=== PATIENT | female | born 1945 | race Caucasian/White ===

== ENCOUNTER 2017-05-09 16:20 | Inpatient (IN) | payer MEDICARE ==
[2017-05-09] MEDS ORDERED: Ondansetron INJ* 2 MG/ML VIAL IV ONE (17:25)
[2017-05-09] MEDS ORDERED: Morphine INJ* 2 MG/ML 1 ML CARPUJECT IV ONE ×2 (17:26→19:43)
--- NOTE | 2017-05-09 17:33 | ED ---
Lower Extremity - HPI Summary HPI Summary: Patient presents to the ED with a CC of left hip pain and deformity after falling backwards and falling onto the left hip. She denies hitting her head or LOC. Denies back pain. Hx of COPD and on 2L O2 at home at baseline. She took the O2 off for 1 hour prior to her fall, but does not think it was related to SOB She denies SOB at this time. Ambulance called and given Fentanyl by EMS. Denies allergy to morphine. Her left leg is slightly inverted and the hip has a large deformity noted on the lateral side of the hip. No bruising or break in the skin is noted. Denies previous fracture of the hip. She notes to 9/10 pain, constant and worse with slight movement. Patient is not able to ambulate. + nausea. Denies vomiting, abdominal pain, BROWN, neck pain, back pain or bladder or bowel dysfunction. Denies blood thinners. Last PO intake 1pm ( drink) - other intake was this AM, she took BOOST supplement. - History of Current Complaint Chief Complaint: EDExtremityLower Stated Complaint: FALL Time Seen by Provider: 05/09/17 17:26 Hx Obtained From: Patient Hx Last Menstrual Period: 07/30/1999 Mechanism Of Injury: Direct Blow Onset of Pain: Immediate Onset/Duration: Minutes Severity Initially: Severe Severity Currently: Severe Pain Intensity: 9 Pain Scale Used: 0-10 Numeric Timing: Constant Location: Is Discrete @ - left lateral hip Character Of Pain: Aching Associated Signs And Symptoms: Positive: Swelling Aggravating Factor(s): Nothing Alleviating Factor(s): Nothing Able to Bear Weight: No - Risk Factors DVT Risk Factors: Negative Septic Arthritis Risk Factor: Extremes of Age - Allergies/Home Medications Allergies/Adverse Reactions: Allergies Allergy/AdvReac Type Severity Reaction Status Date / Time Levofloxacin Allergy Intermediate Swelling Verified 04/25/16 13:03 Ciprofloxacin Allergy Muscle Ache Verified 04/25/16 13:03 Lamotrigine [From Lamictal] Allergy Rash Verified 04/25/16 13:03 Lorazepam [From Ativan] Allergy See Comment Verified 04/25/16 13:03 Nifedipine [From Procardia] Allergy Rash Verified 04/25/16 13:03 Topiramate Allergy See Comment Verified 04/25/16 13:03 Zonisamide Allergy Unknown Verified 04/25/16 13:03 Reaction Details Levetiracetam [From [facility]] AdvReac See Comment Verified 04/25/16 13:03 ANTI=SEIZURE MEDICINE Allergy See Comment Uncoded 04/25/16 13:03 Home Medications: Home Medications ALPRAZolam TAB* [Xanax TAB*] 0.5 mg PO QID PRN 05/09/17 [History Confirmed 05/09] Aspirin EC Low Dose* [Ecotrin EC Low Dose 81 MG*] 81 mg PO DAILY 05/09/17 [ History Confirmed 05/09/17] Levothyroxine TAB* [Synthroid TAB*] 50 mcg PO QAM 05/09/17 [History Confirmed ] Metoprolol Succinate XL TAB* [Toprol XL TAB*] 75 mg PO DAILY 05/09/17 [History Confirmed 05/09/17] Sertraline* [Zoloft*] 50 mg PO DAILY 05/09/17 [History Confirmed 05/09/17] PMH/Surg Hx/FS Hx/Imm Hx Previously Healthy: No - COPD Endocrine/Hematology History: Reports: Hx Thyroid Disease - RADIATION INDUCED HYPERTHYROIDISM Denies: Hx Anticoagulant Therapy, Hx Blood Disorders, Hx Bone Marrow Disease , Hx Diabetes, Hx Systemic Lupus Erythematosus, Hx Sickle Cell Disease, Hx Anemia, Hx Unexplained Bleeding, Other Endocrine/Hematological Disorders Cardiovascular History: Reports: Hx Hypercholesterolemia - previously, Other Cardiovascular Problems/Disorders - Raynauds disease of heart, hands and feet, severe Denies: Hx Aneurysm, Hx Angina, Hx Angioplasty, Hx Auto Implanted Cardiovert Defib, Hx Cardiac Arrest, Hx Cardiomegaly, Hx Congenital Heart Disease, Hx Congestive Heart Failure, Hx Coronary Artery Disease, Hx Deep Vein Thrombosis, Hx Embolism, Hx Hypotension, Hx Pacemaker/ICD, Hx Peripheral Vascular Disease, Hx Rheumatic Fever, Hx Syncope, Hx Valvular Heart Disease Comment Only: Hx Hypertension - pt reports her md has her take BP meds as a precaution Respiratory History: Reports: Hx Chronic Bronchitis, Hx Chronic Obstructive Pulmonary Disease (COPD) Denies: Hx Asthma, Hx Cystic Fibrosis, Hx Lung Cancer, Hx Pleural Effusion, Hx Pulmonary Edema, Hx Pulmonary Embolism, Hx Sleep Apnea Comment Only: Other Respiratory Problems/Disorders - copd GI History: Reports: Hx Obstructive Bowel - "twisted intestine", Other GI Disorders - colitis Denies: Hx Cirrhosis, Hx Crohn's Disease, Hx Diverticulosis, Hx Gall Bladder Disease, Hx Gastroesophageal Reflux Disease, Hx Gastrointestinal Bleed, Hx Hiatal Hernia, Hx Irritable Bowel, Hx Jaundice, Hx Ileostomy, Hx Pyloric Stenosis, Hx Ulcer History: Denies: Hx Acute Renal Failure, Hx Benign Prostatic Hyperplasia, Hx Chronic Renal Failure, Hx Dialysis, Hx Kidney Infection, Hx Kidney Stones, Hx Renal Disease, Other Problems/Disorders Musculoskeletal History: Denies: Hx Arthritis, Hx Rheumatoid Arthritis, Hx Back Problems, Hx Bursitis , Hx Congenital Bone Abnormalities, Hx Fibromyalgia, Hx Gout, Hx Orthopedic Injury, Hx Osteoporosis, Hx Scoliosis, Hx Tendonitis, Other Musculoskeletal History Sensory History: Reports: Hx Cataracts, Hx Contacts or Glasses Denies: Hx Eye Injury, Hx Eye Prosthesis, Hx Legally Blind, Hx Macular Degeneration, Hx Vision Problem, Hx Deafness, Hx Hearing Aid, Hx Hearing Problem , Other Sensory Impairments Opthamlomology History: Reports: Hx Cataracts, Hx Contacts or Glasses Denies: Hx Eye Injury, Hx Eye Prosthesis, Hx Legally Blind, Hx Macular Degeneration, Hx Vision Problem, Other Sensory Impairments Neurological History: Reports: Hx Seizures - 2006 febrile Denies: Hx Dementia, Hx Developmental Delay, Hx Headaches, Hx Migraine, Hx Nerve Disease, Hx Spinal Cord Injury, Hx Transient Ischemic Attacks (TIA), Other Neuro Impairments/Disorders Psychiatric History: Reports: Hx Anxiety - when SOB Denies: Hx Attention Deficit Hyperactivity Disorder, Hx Eating Disorder, Hx Depression, Hx Panic Disorder, Hx Post Traumatic Stress Disorder, Hx Inpatient Treatment, Hx Community Mental Health Tx, Hx Schizophrenia, Hx Bipolar Disorder , Hx Suicide Attempt, Hx of Violent Episodes Against Others, Hx Substance Abuse , Other Psychiatric Issues/Disorders - Cancer History Cancer Type, Location and Year: . neoplasm malignant left mouth/tongue salivary gland 2011 Hx Chemotherapy: No Hx Radiation Therapy: Yes - 2013 Hx Palliative Cancer Treatment: No - Surgical History Surgery Procedure, Year, and Place: 08/27/13 - BIOPSY UNDER TONGUE [id number], salivary gland and lymph node removed from left neck. [facility] [place] Anesthesia Reactions: No - Immunization History Hx Pertussis Vaccination: No Immunizations Up to Date: Unable to Obtain/Confirm Infectious Disease History: No Infectious Disease History: Denies: Hx Hepatitis, Hx Human Immunodeficiency Virus (HIV), Hx Tuberculosis , History Other Infectious Disease, Traveled Outside the [place] in Last 30 Days - Family History Known Family History: Positive: None - Social History Occupation: Retired Lives: With Family Alcohol Use: None Alcohol Amount: 1-2 GLASSES/DAY Hx Substance Use: No Substance Use Type: Reports: None Hx Tobacco Use: Yes Smoking Status (MU): Former Smoker Type: Cigarettes Amount Used/How Often: 45 years Length of Time of Smoking/Using Tobacco: 07/30/2011 Have You Smoked in the Last Year: No Review of Systems Constitutional: Negative Eyes: Negative Cardiovascular: Negative Respiratory: Negative Genitourinary: Negative Positive: no symptoms reported, see HPI Positive: Arthralgia - left hip Neurological: Negative Psychological: Normal All Other Systems Reviewed And Are Negative: Yes Physical Exam Triage Information Reviewed: Yes Vital Signs On Initial Exam: Initial Vitals Temp Pulse Resp BP Pulse Ox 96.3 F 69 20 169/89 100 05/09/17 16:35 05/09/17 16:35 05/09/17 16:35 05/09/17 16:35 05/09/17 16:35 Vital Signs Reviewed: Yes Appearance: Positive: Well-Appearing, Well-Nourished Skin: Positive: Warm, Skin Color Reflects Adequate Perfusion, Other - swelling over the lateral left hip Head/Face: Positive: Normal Head/Face Inspection Eyes: Positive: EOMI, BULMARO, Conjunctiva Clear Neck: Positive: Supple, No Lymphadenopathy Respiratory/Lung Sounds: Positive: Clear to Auscultation, Breath Sounds Present Cardiovascular: Positive: Normal, RRR, Pulses are Symmetrical in both Upper and Lower Extremities Musculoskeletal: Positive: Pain @ - left lateral hip with deformity Neurological: Positive: Sensory/Motor Intact, Alert, Oriented to Person Place, Time Psychiatric: Positive: Normal AVPU Assessment: Alert - Carolyn Coma Scale Best Eye Response: 4 - Spontaneous Best Motor Response: 6 - Obeys Commands Best Verbal Response: 5 - Oriented Diagnostics - Vital Signs Vital Signs Temp Pulse Resp BP Pulse Ox 05/09/17 16:35 96.3 F 69 20 169/89 100 - Laboratory Result Diagrams: 05/09/17 20:10 Lab Statement: Any lab studies that have been ordered have been reviewed, and results considered in the medical decision making process. Lower Extremity Course/Dx - Course Course Of Treatment: Patient sent to imaging. Given 4mg zofran and 4mg morphine upon arrival to the ED. Deformity to the left hip. Pulses intact +2 femorally and PT and pedal. No ecchymosis noted. No lesions or breaks in the skin. Foot is turned outward and externally rotated on arrival. She endorses more pain 1 hour after morphine given. She is currently at 4L O2 after 4mg morphine given. She is currently at 100%. She is given morphine 2mg. Spoke with Dr. Harris who agrees to admit. Dr. Castillo called and will see patient first thing in the morning. patient and made aware. She is able to eat but states she is not hungry. - Diagnoses Provider Diagnoses: Closed comminuted intertrochanteric fracture of femur Discharge - Discharge Plan Condition: Stable Disposition: ADMITTED TO [facility]
--- NOTE | 2017-05-09 18:30 | RAD ---
Indication: Pain post fall. Assess for LEFT hip fracture. Comparison: January 28, 2013 CT. Technique: AP pelvis and AP and crosstable lateral views LEFT hip. Report: Comminuted intratrochanteric LEFT hip fracture with approximate 90 degrees varus angulation. The femoral head remains located in the acetabular fossa. No pelvic fracture or joint diastases evident. Soft tissue swelling about the LEFT hip. No significant arthropathic change at the LEFT hip evident. IMPRESSION: Comminuted intratrochanteric fracture of the LEFT hip with varus angulation.
--- NOTE | 2017-05-09 18:32 | RAD ---
Indication: Fall with LEFT hip fracture. Comparison: January 28, 2016 CT. Technique: Sitting AP chest 1818 hours Report: Elevated lung volumes and both diffuse mild prominence of the interstitial markings and patchy rarefaction of the mid to upper lung zone interstitial markings. No focal pulmonary lesion, compelling alveolar consolidation, pleural effusion, pneumothorax. The heart, pulmonary vasculature, and mediastinal contours are unremarkable. IMPRESSION: Stigmata of obstructive lung disease. No acute pulmonary or cardiac process evident.
[2017-05-09] MEDS ORDERED: Albuterol/Ipratropium RESP(NF) MDI (Combivent Respimat) INH PRN (19:28)
[2017-05-09] MEDS ORDERED: Ondansetron INJ* 2 MG/ML VIAL IV PRN (19:35)
[2017-05-09] MEDS ORDERED: PROCHLORPERAZINE INJ 5 MG/ML 2 ML VIAL IV PRN (19:35)
[2017-05-09 20:19] LABS: Hematocrit 31 % (35-47); Hemoglobin 10.4 g/dl (12.0-16.0); Mean Corpuscular HGB Conc 33 g/dl (31-36); Mean Corpuscular Hemoglobin 33 pg (27-31); Mean Corpuscular Volume 100 fL (80-97); Mean Platelet Volume 7 um3 (7.4-10.4); Red Blood Count 3.12 10^6/ul (4.0-5.4); Red Cell Distribution Width 12 % (10.5-15); White Blood Count 15.3 10^3/ul (3.5-10.8)
[2017-05-09 20:33] LABS: Albumin 3.6 g/dL (3.2-5.2); BUN/Creatinine Ratio 18.4 (8-20); C Reactive Protein 2.48 mg/L (< 5.00); Calcium 8.6 mg/dL (8.6-10.3); EGFR African American 215.3 (>60); EGFR Non-African American 167.4 (>60); Globulin 2.7 g/dL (2-4); Potassium 3.8 mmol/L (3.5-5.0); Total Bilirubin 0.5 mg/dL (0.2-1.0); Total Protein 6.3 g/dL (6.4-8.9)
[2017-05-09] MEDS ORDERED: Budesonide/Formote 160/4.5(NF) MDI INH SCH (21:00)
[2017-05-09] MEDS ORDERED: Heparin VIAL(*) 5000 UNITS/ML VIAL (FIVE THOUSAND) SUBCUT SCH (21:00)
--- NOTE | 2017-05-09 21:41 | HP ---
CC: Dr. James; Dr. Castaneda * HISTORY AND PHYSICAL: DATE OF ADMISSION: 05/09/17 PRIMARY CARE PROVIDER: Dr. James. INTERNATIONAL COORDINATOR: Dr. Castaneda. CHIEF COMPLAINT: Fall with left hip pain. HISTORY OF PRESENT ILLNESS: Ms. Cabello is a 72-year-old female with O2 dependent COPD, who had been in her usual state of health today, though trialing herself off the oxygen. When she stood up in the kitchen, she believes she slipped on the floor and fell. The patient landed on the left hip and had instant pain. The patient did not hit her head and she had no loss of consciousness. The patient has been over the last few days been trialing herself off her oxygen. She states her O2 saturation have been in the high 80s to low 90s, off her O2. She had no lightheadedness or dizziness prior to the fall. At this point, the patient is complaining of significant pain in her left hip as well as nausea. The patient denies any chest pain now or at the time of her fall. She denies any shortness of breath currently. She does get short of breath with exertion such as climbing stairs. The patient does not have to stop climbing stairs due to chest pain; however, she does state that she will have to stop climbing the stairs due to shortness of breath. PAST MEDICAL HISTORY: 1. COPD with chronic hypoxic respiratory failure, requiring 2 L of oxygen continuously. 2. CAD with FL in 1995. 3. Hypertension. 4. Raynaud's. 5. Hyperlipidemia. 6. History of mouth cancer. 7. Hypothyroidism. PAST SURGICAL HISTORY: Left neck lymph node removal and salivary gland extraction related to her mouth cancer. MEDICATIONS: 1. Sertraline 50 mg p.o. daily. 2. Metoprolol XL 75 mg p.o. daily. 3. Aspirin 81 mg p.o. daily. 4. Xanax 0.5 mg p.o. q.i.d. p.r.n. anxiety. 5. Combivent 2 puffs inhaled q.4 hours p.r.n. shortness of breath. 6. Symbicort 160/4.5 two puffs inhaled b.i.d. 7. Lipitor 10 mg p.o. daily. 8. Synthroid 50 mcg p.o. daily. 9. Valsartan 80 mg p.o. daily. ALLERGIES: LEVAQUIN, CIPRO, LAMICTAL, LORAZEPAM, NIFEDIPINE, TOPAMAX, ZONISAMIDE, KEPPRA. FAMILY HISTORY: Mom of pneumonia. Dad of an FL, but also had emphysema. SOCIAL HISTORY: The patient is a former smoker, quitting in 2011. She has a 45 - pack year history of smoking. She does drink 3 to 4 alcoholic beverages per day. She does state that she is able to intermittently takes days where she does not drink and she denies any withdrawal symptoms on those days. 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 She is . Her , Eloy is her healthcare proxy. REVIEW OF SYSTEMS: The patient denies any fevers or chills. She does state that her appetite is poor; however, this has been a chronic problem. She denies any chest pain. She does admit to chronic edema of her feet. She admits to chronic cough and sputum production that is unchanged currently. No shortness of breath at this point; however, she does get short of breath with exertion. She currently is feeling nauseous; however, prior to being in the ER , she did not. No abdominal pain. No diarrhea, constipation, or hematochezia. No hematuria. No dysuria. No focal weakness or sensory loss. No sudden changes in vision. No dysphagia. Her only source of pain at this point is her left hip. No rashes. She does admit to anxiety. PHYSICAL EXAMINATION GENERAL: The patient is a well-developed, thin, elderly female, sitting up in the stretcher, in no acute distress. VITAL SIGNS: Blood pressure 169/89, pulse 69, respirations 20, temp 96.3, and O2 sat 100% on 2 L. HEENT: Pupils are equal, they are round. Extraocular muscles are intact. Oropharynx is clear. Oral mucosa is moist. I do not appreciate any submandibular, cervical, or supraclavicular adenopathy. Thyroid is not enlarged. No thyroid nodules noted. PULMONARY: Lungs are clear to auscultation bilaterally, though breath sounds are diminished in all lung kelly. CARDIAC: Normal S1, S2. Heart sounds are distant, but found to be regular. There is trace lower extremity edema. ABDOMEN: Bowel sounds are present. Abdomen is soft, nontender, nondistended. MUSCULOSKELETAL: There is no cyanosis or clubbing of the digits. There is full active range of motion of the upper extremities. The left lower extremity is shortened and externally rotated. Her jeans have been cut revealing swelling about the upper thigh. SKIN: Warm and dry. I do not appreciate any rashes. NEURO: Cranial nerves II through XII are grossly intact. Sensation is intact to light touch throughout. Strength is 5/5 and symmetric in the upper extremities. Lower extremity is not tested at this time. PSYCH: The patient is alert. She is oriented x3. Affect appears appropriate. DIAGNOSTIC STUDIES/LAB DATA: Labs are pending. Chest x-ray reveals stigmata of obstructive lung disease without any acute pulmonary or cardiac process. Left hip x-ray, comminuted intertrochanteric fracture of the left hip with varus angulation. ASSESSMENT AND PLAN: Ms. Cabello is a 72-year-old female with a history of chronic hypoxic respiratory failure secondary to chronic obstructive pulmonary disease on 2 L oxygen continuously, coronary artery disease, hypertension, hyperlipidemia and history of mouth cancer, who presents to the emergency room after a mechanical fall at home, where she sustained a left comminuted intertrochanteric hip fracture. 1. Left comminuted intertrochanteric hip fracture. Management of this will be per Orthopedics. Dr. Castillo was called by the emergency room physician and reportedly will be seeing the patient tomorrow morning. For now, the patient will receive a dose of subcu heparin tonight for DVT prophylaxis, though I will hold it any further in case she is able to go to the operating room tomorrow. She will have pain control with morphine and Tylenol. At this point, the patient is feeling slightly nauseous which I suspect is related to the morphine and therefore, I have also ordered Zofran and Compazine. In terms of the patient's cardiac risk for surgery, her revived cardiac risk index for preoperative risk reveals a 0.9% risk of major cardiac events. I suspect the patient is more likely to suffer from pulmonary complications. At this time, however, her pulmonary status does appear to be optimized. 2. Chronic obstructive pulmonary disease on 2 L O2 continuously. At this point , the patient has no signs of exacerbation. She will be maintained on her usual inhaler regimen. 3. Coronary artery disease. The patient has no complaints of chest pain whatsoever and has had no chest pain in the recent past. I have held her baby aspirin which she did take this morning. This will need to be restarted postoperatively when okayed by Orthopedics. 4. Hypertension. At this point, the patient's blood pressure is moderately elevated in the ER; however, I suspect this is related to pain. We will monitor the patient's blood pressure on her usual home antihypertensive regimen. 5. Hyperlipidemia. The patient will be maintained on her usual dose of Lipitor. 6. Hypothyroidism. The patient will continue on her usual dose of Synthroid. 7. DVT prophylaxis. According to the Adult Thrombosis Prophylaxis Risk Factor Assessment Guide, the patient has a total risk factor score of 10, making her high risk. Again, she will receive a dose of subcu heparin tonight as well as an SCD to the right leg while awaiting surgery. 8. Code status is full and again the patient indicates that her , Eloy is her healthcare proxy. TIME SPENT: Sixty-five minutes were spent admitting this patient. ADDENDUM: Labs have returned on the patient and reveal an elevated WBC count, anemia and significant hyponatremia. I suspect the leukocytosis and anemia are related to her fracture (elevated WBC count secondary to stress reaction) and possibly a hematoma from the fracture. Will get follow up labs tomorrow AM. In terms of the hyponatremia, I question if this may be secondary to poor oral intake today. Will start IVF now as opposed to at NH as initially ordered and follow up the labs in the AM. If her hyponatremia is improved or stable she can likely go to the OR tomorrow if recommended by orthopedics. [id number]/[facility] #: [id number] MTDD
[2017-05-09] MEDS: NS 0.9% 1000 ML* 1,000 ML IV SCH (22:00)
[2017-05-09] MEDS: Morphine INJ* 4 MG/ML 1 ML CARPUJECT IV PRN (22:14)
[2017-05-09] MEDS ORDERED: NS 0.9% 1000 ML* 1,000 ML IV SCH (23:59)
[2017-05-10] MEDS: Morphine INJ* 4 MG/ML 1 ML CARPUJECT IV PRN ×2 (02:23→07:14)
[2017-05-10 05:58] LABS: Hematocrit 29 % (35-47); Hemoglobin 9.7 g/dl (12.0-16.0); Mean Corpuscular HGB Conc 34 g/dl (31-36); Mean Corpuscular Hemoglobin 34 pg (27-31); Mean Corpuscular Volume 100 fL (80-97); Mean Platelet Volume 7 um3 (7.4-10.4); Red Blood Count 2.87 10^6/ul (4.0-5.4); Red Cell Distribution Width 12 % (10.5-15); White Blood Count 10.2 10^3/ul (3.5-10.8)
[2017-05-10 06:13] LABS: BUN/Creatinine Ratio 18.8 (8-20); Calcium 8.4 mg/dL (8.6-10.3); EGFR African American 108.2 (>60); EGFR Non-African American 84.1 (>60)
[2017-05-10 06:22] LABS: Potassium 5.1 mmol/L (3.5-5.0)
[2017-05-10] MEDS: Levothyroxine TAB* 50 MCG TAB PO SCH (06:29)
[2017-05-10] MEDS: Atorvastatin* 10 MG TAB PO SCH (08:25)
[2017-05-10] MEDS: Valsartan TAB* 40 MG PO SCH (08:25)
[2017-05-10] MEDS: Metoprolol Succinate XL TAB* 25 MG PO SCH (08:45)
[2017-05-10] MEDS ORDERED: Influenza VAC *QUAD* 2017-18* 0.5 ML SYRINGE IM ONE (09:00)
[2017-05-10] MEDS ORDERED: Sertraline* 50 MG TAB PO SCH ×2 (09:00→15:32)
[2017-05-10] MEDS ORDERED: Metoprolol Succinate XL TAB* 50 MG PO SCH (09:00)
[2017-05-10] MEDS ORDERED: Sertraline* 25 MG TAB PO SCH ×2 (09:00)
[2017-05-10] MEDS ORDERED: Metoprolol Tartrate TAB* 50 mg PO SCH (09:00)
[2017-05-10] MEDS ORDERED: Morphine INJ* 10 MG/ML 1 ML CARPUJECT IV PRN (09:05)
--- NOTE | 2017-05-10 09:14 | PN ---
Subjective Date of Service: 05/10/17 Interval History: Pain not relieved by morphine 4 mg IV, was only sl sedated briefly from this. No change in her chronic SOB, not a problem now. Objective Active Medications: Acetaminophen (Tylenol Tab*) 650 mg PO Q4H PRN PRN Reason: PAIN Albuterol/Ipratropium (Combivent Respimat(Nf)) 2 puff INH Q4H PRN PRN Reason: DYSPNEA Alprazolam (Xanax Tab*) 0.5 mg PO QID PRN PRN Reason: ANXIETY Atorvastatin Calcium (Lipitor*) 10 mg PO QAM [facility] Last Admin: 05/10/17 08:25 Dose: Not Given Sodium Chloride (Ns 0.9% 1000 Ml*) 1,000 mls @ 75 mls/hr IV PER RATE [facility] Last Admin: 05/09/17 22:00 Dose: 75 mls/hr Levothyroxine Sodium (Synthroid Tab*) 50 mcg PO DAILY@0600 [facility] Last Admin: 05/10/17 06:29 Dose: 50 mcg Metoprolol Succinate (Toprol Xl Tab*) 75 mg PO DAILY [facility] Last Admin: 05/10/17 08:45 Dose: 75 mg Mometasone Furoate/Formoterol Fumar (Dulera 200/5 Mdi*) 2 puff INH BID [facility] PRN Reason: Protocol Morphine Sulfate (Morphine Inj (Syringe)*) 4 mg IV Q4H PRN PRN Reason: PAIN Last Admin: 05/10/17 07:14 Dose: 4 mg Morphine Sulfate (Morphine Inj (Syringe)*) 6 mg IV Q3H PRN PRN Reason: PAIN - SEVERE Ondansetron HCl (Zofran Inj*) 4 mg IV Q6H PRN PRN Reason: NAUSEA Last Admin: 05/09/17 19:48 Dose: 4 mg Prochlorperazine Edisylate (Compazine Inj*) 5 mg IV Q6H PRN PRN Reason: NAUSEA/VOMITING Last Admin: 05/09/17 21:02 Dose: 5 mg Sertraline HCl (Zoloft*) 50 mg PO DAILY [facility] Last Admin: 05/10/17 08:25 Dose: Not Given Valsartan (Diovan Tab*) 80 mg PO QAM [facility] Last Admin: 05/10/17 08:25 Dose: Not Given Vital Signs 05/09/17 05/09/17 05/09/17 19:51 20:25 21:26 Temperature 97.3 F 97.9 F Pulse Rate 71 68 Respiratory 18 18 16 Rate Blood Pressure 123/54 111/69 (mmHg) O2 Sat by Pulse 100 100 Oximetry 05/09/17 05/09/17 05/09/17 21:58 22:14 23:14 Temperature 97.3 F Pulse Rate 71 Respiratory 18 18 16 Rate Blood Pressure 123/54 (mmHg) O2 Sat by Pulse 100 Oximetry 05/10/17 05/10/17 05/10/17 02:23 03:29 07:14 Temperature 97.7 F Pulse Rate 88 Respiratory 16 13 18 Rate Blood Pressure 132/55 (mmHg) O2 Sat by Pulse 100 Oximetry 05/10/17 05/10/17 08:14 08:26 Temperature 97.7 F Pulse Rate 89 Respiratory 14 17 Rate Blood Pressure 114/58 (mmHg) O2 Sat by Pulse 100 Oximetry Oxygen Devices in Use Now: Nasal Cannula Appearance: Alert, supine in bed. In fair spirits. Looks somewhat uncomfortable. Ears/Nose/Mouth/Throat: Mucous Membranes Moist Neck: NL Appearance and Movements; NL JVP, No Thyroid Enlargement, Masses Respiratory: Symmetrical Chest Expansion and Respiratory Effort, Clear to Auscultation, Clear to Percussion Cardiovascular: NL Sounds; No Murmurs; No JVD, RRR, No Edema, - Extremities: No Edema, No Clubbing, Cyanosis, - - L leg shortened and everted. Skin: No Rash or Ulcers, No Nodules or Sclerosis, - Neurological: Alert and Oriented x 3, NL Sensation Result Diagrams: 05/10/17 05:31 05/10/17 05:31 Assess/Plan/Problems-Billing Assessment: - Patient Problems (1) Closed left hip fracture Current Visit: Yes Status: Acute Code(s): S72.002A - FRACTURE OF UNSP PART OF NECK OF LEFT FEMUR, INIT SNOMED Code(s): 572712979 Comment: Scheduled for ORIF 10/12 AM. Morphine dose increased to 6 mg IV q 3 hr PRN severe pain. (2) COPD (chronic obstructive pulmonary disease) Current Visit: No Status: Acute Code(s): J44.9 - CHRONIC OBSTRUCTIVE PULMONARY DISEASE, UNSPECIFIED SNOMED Code(s): 13121716 Comment: Continue bronchodilators. She will take her own Combivent Respimat and Symbicort inhalers 05/10 0900. (3) Hypothyroidism Current Visit: No Status: Acute Code(s): E03.9 - HYPOTHYROIDISM, UNSPECIFIED SNOMED Code(s): 93146772 Comment: - TSH wnl 02/20/17, continue Levothyroxine. (4) CAD (coronary artery disease) Current Visit: No Status: Acute Code(s): I25.10 - ATHSCL HEART DISEASE OF [place] CORONARY ARTERY W/O ANG PCTRS SNOMED Code(s): 41054054 Comment: - Stable. - Continue Atorvastatin, re-start ASA 05/11. (5) HTN (hypertension) Current Visit: Yes Status: Acute Code(s): I10 - ESSENTIAL (PRIMARY) HYPERTENSION SNOMED Code(s): 58510536 Comment: Continue valsartan.
[2017-05-10] MEDS: Mometasone/Formoter 200/5 MDI INH SCH ×2 (09:51→20:55)
[2017-05-10] MEDS ORDERED: Bupivacaine 0.5% SDV PF* 30 ML VIAL ONE (10:02)
--- NOTE | 2017-05-10 10:10 | CONSULT ---
Consult Consult: Orthopedics H&P Chief Complaint: Left hip pain. History: 72F with COPD on home oxygen who fell while getting up from a table last night, likely due to not using her oxygen at the time. Reports only left hip pain and denies HS, LOC or pain anywhere else. No prior hip pain. Lives at home with in [place]. The pain is located at left hip and is daily, marked, sharp. Pain worse with attempted motion and lessened when at rest. There is associated swelling and ecchymosis. Review of Systems: Negative for fever, recent visual changes, difficulty swallowing, chest pain, shortness of breath, abdominal pain, hematuria, diffuse weakness or lack of coordination, and diffuse rash. PMH: COPD, CAD, HTN, raynauds, HL, hypothyroid, h/o mouth cancer All: levaquin, cipro, lamictal, lorazepam, nifedipine, topamax, zonesamide, keppra Physical Examination: Constitutional: General appearance is healthy and non-septic in no acute distress. Cardiovascular: Pulse examination demonstrates positive pedal pulses with brisk capillary refill. There are no varicosities. Lymphatic: No lymphadenopathy appreciated. Skin: Bilateral upper and lower extremity examination demonstrates no ulcerative lesions. Psychiatric / Neurological: Appropriate affect. Alert and oriented to person, place and time. There is no significant abnormality in coordination appreciated. Musculoskeletal: Bilateral upper extremities and contralateral lower extremity show full range of motion with no evidence of instability and no tenderness with palpation and 5 /5 strength. There is no gross deformity. LLE shortened and externally rotated Pain with logroll and heel strike 5/5 ankle and toes dorsiflexion and plantarflexion Intact light touch sensation. There is no global swelling, edema, or varicosities. No TTP distal femur, knee, leg ankle or foot No pain with knee or ankle ROM Studies: X-rays were ordered, obtained, and independently interpreted and demonstrate a displaced left hip IT fx. HCT 29 Impression and Plan: Left hip IT fx. Surgical and non-surgical treatment options were discussed at length. I recommended surgical intervention given the morbidity of non-op displaced hip fx's. After reviewing all of these factors, we discussed at length the pros/cons and potential risks and benefits of surgery with both her and her son. Surgical risks reviewed included but were not limited to infection, failure of healing, nerve injury, recurrent problems, neuroma, deep venous thrombosis or pulmonary embolism, chronic regional pain syndrome (reflex sympathetic dystrophy), failure to return to previous functional level, weakness, limp, hardware failure, malunion, nonunion, failure of the surgery and also the remote risk of catastrophic complications including loss of limb or . After this extensive discussion the patient and her son expressed their desire to move forward with surgery. All questions were answered. Specifically, the surgical plan will be for left hip fracture surgical fixation. Andrae Campos MD
[2017-05-10] MEDS ORDERED: ceFAZolin 2 GM PREMIX (*) 50 ML IVPB ONE (10:34)
[2017-05-10] MEDS ORDERED: Propofol* 10 MG/ML 20 ML BTL IV PUSH ONE (11:02)
[2017-05-10] MEDS ORDERED: fentaNYL* 50 MCG/ML 2 ML VIAL (100 MCG VIAL) ONE ×2 (11:02→13:16)
[2017-05-10] MEDS ORDERED: Midazolam* 1 MG/ML 2 ML VIAL (2 MG) ONE (11:08)
[2017-05-10] MEDS ORDERED: Atracurium* 10 MG/ML 10 ML VIAL ONE (11:30)
[2017-05-10] MEDS ORDERED: Succinylcholine* 20 MG/ML 10 ML VIAL ONE (12:17)
[2017-05-10] MEDS ORDERED: Glycopyrrolate IV* 0.2 MG/ML 1 ML VIAL ONE (12:28)
[2017-05-10] MEDS ORDERED: Neostigmine Methylsulfate* 2 MG/2 ML SYRINGE ONE (12:28)
--- NOTE | 2017-05-10 12:47 | RAD ---
INDICATION: Traumatic left hip fracture, operative reduction and internal fixation. COMPARISON: Comparison is made with a prior x-ray study of the left hip from May 09, 2017. TECHNIQUE: 52.7 seconds of intermitted fluoroscopic were provided and an AP view of the pelvis and 16 views of the left hip were obtained. FINDINGS: The films demonstrate operative reduction and internal fixation of a comminuted intertrochanteric fracture of the proximal left femur. There is placement of a gamma nail and intramedullary kay transfixed distally with a single surgical screw. IMPRESSION: INTRAOPERATIVE CONTROL FILMS. CPT II Codes: 6045F
[2017-05-10] MEDS ORDERED: Naloxone* 0.4 MG/ML 10 ML VIAL ONE (12:48)
[2017-05-10] MEDS ORDERED: HYDROmorphone INJ* 1 MG/ML CARPUJECT SYRINGE IV PRN (12:58)
[2017-05-10] MEDS ORDERED: Levalbuterol 0.63MG/3ML NEB* UNIT OF USE INH PRN (12:58)
[2017-05-10] MEDS ORDERED: Ondansetron INJ* 2 MG/ML VIAL IV PRN (12:58)
[2017-05-10] MEDS ORDERED: oxyCODONE TAB* 5 MG TAB PO PRN (13:05)
[2017-05-10] MEDS: fentaNYL* 50 MCG/ML 2 ML VIAL (100 MCG VIAL) IV PRN ×4 (13:18→13:32)
[2017-05-10] MEDS ORDERED: Enoxaparin(*) 40 MG/0.4 ML SYR SUBCUT SCH (14:00)
[2017-05-10] MEDS ORDERED: oxyCODONE/Acetamin 5/325 MG* TAB ONE (14:13)
[2017-05-10] MEDS ORDERED: Acetaminophen TAB* 325 MG ONE (14:22)
[2017-05-10] MEDS: Acetaminophen TAB* 325 MG PO PRN (14:25)
[2017-05-10] MEDS: NS 0.9% 1000 ML* 1,000 ML IV SCH (15:27)
[2017-05-10] MEDS ORDERED: Spiriva Inhaler DEVICE* 1 EACH DEVICE INH ONE (18:00)
[2017-05-10] MEDS: Tiotropium CAP.INH* CAP.INH/18 MCG (USE ORDER SET !) INH SCH (18:17)
[2017-05-10] MEDS ORDERED: Lactated Ringers 500 ml BAG* 500 ML IV ONE (19:00)
[2017-05-10] MEDS: ceFAZolin 1 GM* X 3 DOSES POST-OP Q8H IVPB SCH ×2 (19:39)
[2017-05-10] MEDS: oxyCODONE TAB* 5 MG TAB PO PRN (20:06)
--- NOTE | 2017-05-11 02:25 | OP ---
DATE OF OPERATION: 05/10/17 - ROOM #339 DATE OF : 49 SURGEON: Andrae Campos MD. TRAINS DISPATCHER SUPERVISOR: VICKEY Rodriguez. ANESTHESIOLOGIST: Cooper Hoyt MD ANESTHESIA: General endotracheal anesthesia. PRE-OP DIAGNOSIS: Left intertrochanteric hip fracture. POST-OP DIAGNOSIS: Left intertrochanteric hip fracture. OPERATIVE PROCEDURE: Open reduction and internal fixation of the left hip fracture utilizing an intramedullary nail. IMPLANTS: Timur gamma nail measuring 11 x 180 mm with 125-degree neck shaft angle, 90 mm lag screw, and 35 mm distal interlocking screw. ESTIMATED BLOOD LOSS: 100 cc. SPECIMENS: None. COMPLICATIONS: None. STATUS: Stable from the operating room to the recovery room and then readmitted back to the floor. INDICATIONS FOR PROCEDURE: Trina is a 72-year-old woman with COPD, who sustained a fall on the night prior to surgery. She sustained a left hip fracture, but no other injury. Both operative and nonoperative treatment alternatives were reviewed with her and her family. Further, the nature and risks of the surgery were reviewed in careful detail both on the hospital floor as well as in the preoperative holding area. Our discussions regarding the risks of the surgery included, but were not limited to infection, wound problems , malunion, nonunion, nerve injury, neuroma, RSD, persistent symptoms, hardware failure and even the remote chance of a catastrophic complications such as . DESCRIPTION OF PROCEDURE: The patient was seen in the preoperative holding unit and informed consent was obtained. The appropriate extremity was marked. The patient was then brought into the operating room and anesthesia was induced. The patient was then carefully positioned on the fracture table and all bony prominences were padded with great care. We fluoroscopically assessed the fracture and pulled traction and gained reduction. The chlorhexidine based pre-scrub was performed followed by a ChloraPrep, prepped and draped in the standard sterile fashion. A surgical safety pause was then conducted in which we confirmed the appropriate patient, extremity, planned procedure, availability of equipment, indication and administration of prophylactic antibiotics and a DVT prophylaxis in the form of compression boot on the nonsurgical extremity. I made an approximately 3 cm incision in-line with the femur. The dissection was carried down through the soft tissue and a starting point was found utilizing a guidewire on the greater trochanter. Fluoroscopy was utilized to confirm the starting point. I then tapped the guidewire into proper position and confirmed this again fluoroscopically. At this point, I overdrilled utilizing the starting reamer. This was done with fluoroscopic guidance as well. I then passed the short nail into appropriate position and gently tapped this down. The reduction was maintained during this portion of the procedure. I then placed a guidewire up into the femoral neck and confirmed that this was center-center within the femoral head. We then measured the length of the guidewire and overdrilled this. I then placed a screw up into the femoral head. I confirmed that this was in the appropriate position utilizing multiple views fluoro-scopically. I then locked this lag screw into place with the set screw. At this point, I placed a single static interlocking screw distally into the nail utilizing the guide. At this point, I removed the guide arm and obtained final fluoroscopic images. We were pleased with the reduction and the position of the hardware. The wounds were copiously irrigated and closed in layers utilizing 2-0 Vicryl for the deep layer, 3-0 Monocryl for the subdermal layer and nancy on the skin. The sterile dressing was then applied. At this point, the patient was carefully transitioned off the fracture table and awaken from the anesthesia. There were no complications. All needle and sponge counts were correct at the end of the case. ATTESTATION: I attest that I was present and scrubbed and performed the entire procedure myself. I also attest that Martha Steel's assistance was necessary. POSTOPERATIVE PLAN: The patient will be readmitted back to the medical floor on the hospitalist service. She may be weightbearing as tolerated and will work with physical therapy. DVT prophylaxis is requested for 1-month and will likely be Lovenox 40 mg sc daily. [id number]/[facility] #: [id number] [facility]
[2017-05-11] MEDS: ceFAZolin 1 GM* X 3 DOSES POST-OP Q8H IVPB SCH ×4 (03:37→12:11)
[2017-05-11] MEDS: oxyCODONE TAB* 5 MG TAB PO PRN ×3 (03:50→19:44)
[2017-05-11] MEDS: Levothyroxine TAB* 50 MCG TAB PO SCH (05:46)
[2017-05-11] MEDS: NS 0.9% 1000 ML* 1,000 ML IV SCH ×2 (06:23→19:49)
--- NOTE | 2017-05-11 08:09 | PN ---
Progress Note - Progress Note Date of Service: 05/11/17 SOAP: Subjective: pain controlled. No complaints Objective: Temp Pulse Resp BP Pulse Ox 98.8 F 94 14 90/50 100 05/11/17 07:34 05/11/17 07:34 05/11/17 07:34 05/11/17 03:17 05/11/17 07:34 Dressing c/d/i +TA EHL FHL G/S +DP SILT foot Assessment: Doing well POD1 left hip ORIF Plan: WBAT, PT consult DVT prophylaxis x1 month with lovenox 40mg sc daily yumiko's and pneumoboots periop abx
[2017-05-11] MEDS: Sertraline* 50 MG TAB PO SCH (08:38)
[2017-05-11] MEDS ORDERED: Enoxaparin(*) 40 MG/0.4 ML SYR SUBCUT SCH (09:00)
[2017-05-11] MEDS ORDERED: Influenza VAC *QUAD* 2017-18* 0.5 ML SYRINGE IM ONE (09:00)
[2017-05-11] MEDS: Metoprolol Succinate XL TAB* 25 MG PO SCH (09:22)
[2017-05-11] MEDS: Atorvastatin* 10 MG TAB PO SCH (09:22)
[2017-05-11] MEDS: Enoxaparin(*) 30 MG/0.3 ML SYR SUBCUT SCH (09:29)
[2017-05-11] MEDS: Mometasone/Formoter 200/5 MDI INH SCH (09:37)
[2017-05-11] MEDS ORDERED: PTO:Budesonide/Formote 160/4.5(NF) MDI INH SCH (09:46)
[2017-05-11] MEDS: Valsartan TAB* 40 MG PO SCH (09:46)
[2017-05-11] MEDS: Tiotropium CAP.INH* CAP.INH/18 MCG (USE ORDER SET !) INH SCH (11:01)
[2017-05-11] MEDS: PTO:Albuterol/Ipratropium RESP(NF) MDI (Combivent Respimat) INH SCH ×4 (12:11→19:35)
[2017-05-11] MEDS ORDERED: Budesonide/Formote 160/4.5(NF) MDI INH SCH (13:00)
[2017-05-11] MEDS: Acetaminophen TAB* 325 MG PO PRN (13:55)
[2017-05-11] MEDS ORDERED: Artificial Tears* 15 ML BTL LEFT EYE PRN (14:03)
--- NOTE | 2017-05-11 14:13 | PN ---
Subjective Date of Service: 05/11/17 Interval History: Pain level 8. Pt prefers acetaminophen which nurse gave. C/O thrush, uses a liquid (? mycostatin suspension) and lozenges at home Objective Active Medications: Acetaminophen (Tylenol Tab*) 650 mg PO Q4H PRN PRN Reason: PAIN Last Admin: 05/11/17 13:55 Dose: 650 mg Albuterol/Ipratropium (Combivent Respimat(Nf)) 1 puff INH QID [facility] Last Admin: 05/11/17 13:54 Dose: 1 puff Alprazolam (Xanax Tab*) 0.5 mg PO QID PRN PRN Reason: ANXIETY Aspirin (Aspirin Low Dose Tab*) 81 mg PO 2100 [facility] Atorvastatin Calcium (Lipitor*) 10 mg PO QAM [facility] Last Admin: 05/11/17 09:22 Dose: 10 mg Budesonide/Formoterol Fumarate (Symbicort 160/4.5 (Nf)) 2 puff INH BID [facility] PRN Reason: Protocol Clotrimazole (Mycelex Rohith*) 10 mg PO QID [facility] Enoxaparin Sodium (Lovenox(*)) 30 mg SUBCUT Q24HR [facility] Last Admin: 05/11/17 09:29 Dose: 30 mg Sodium Chloride (Ns 0.9% 1000 Ml*) 1,000 mls @ 75 mls/hr IV PER RATE [facility] Last Admin: 05/11/17 06:23 Dose: 75 mls/hr Levothyroxine Sodium (Synthroid Tab*) 50 mcg PO DAILY@0600 [facility] Last Admin: 05/11/17 05:46 Dose: 50 mcg Metoprolol Succinate (Toprol Xl Tab*) 75 mg PO DAILY [facility] Last Admin: 05/11/17 09:22 Dose: 75 mg Morphine Sulfate (Morphine Inj (Syringe)*) 4 mg IV Q4H PRN PRN Reason: PAIN Last Admin: 05/10/17 07:14 Dose: 4 mg Morphine Sulfate (Morphine Inj (Syringe)*) 6 mg IV Q3H PRN PRN Reason: PAIN - SEVERE Ondansetron HCl (Zofran Inj*) 4 mg IV Q6H PRN PRN Reason: NAUSEA Last Admin: 05/09/17 19:48 Dose: 4 mg Oxycodone HCl (Roxycodone Tab*) 5 mg PO Q4H PRN PRN Reason: PAIN MODERATE Last Admin: 05/11/17 09:22 Dose: 5 mg Oxycodone HCl (Roxycodone Tab*) 10 mg PO Q4H PRN PRN Reason: PAIN SEVERE Polyvinyl Alcohol (Polyvinyl Alcohol 1.4% Opth*) 1 drop LEFT EYE Q2H PRN PRN Reason: DRY EYE Prochlorperazine Edisylate (Compazine Inj*) 5 mg IV Q6H PRN PRN Reason: NAUSEA/VOMITING Last Admin: 05/09/17 21:02 Dose: 5 mg Sertraline HCl (Zoloft*) 50 mg PO 0600 [facility] Last Admin: 05/11/17 08:38 Dose: 50 mg Tiotropium [place] (Spiriva Cap.Inh*) 1 cap INH DAILY [facility] Last Admin: 05/11/17 11:01 Dose: Not Given Vital Signs 05/10/17 05/10/17 05/10/17 14:15 14:56 15:28 Temperature 97.7 F Pulse Rate 99 96 Respiratory 16 16 18 Rate Blood Pressure 108/62 147/93 (mmHg) O2 Sat by Pulse 100 96 Oximetry 05/10/17 05/10/17 05/10/17 16:29 16:51 17:20 Temperature 97.0 F 96.9 F Pulse Rate 89 84 Respiratory 15 16 Rate Blood Pressure 100/38 94/59 80/46 (mmHg) O2 Sat by Pulse 94 100 Oximetry 05/10/17 05/10/17 05/10/17 17:41 19:07 19:19 Temperature Pulse Rate Respiratory Rate Blood Pressure 86/38 80/50 90/50 (mmHg) O2 Sat by Pulse Oximetry 05/10/17 05/10/17 05/10/17 19:53 20:06 21:00 Temperature Pulse Rate Respiratory 16 16 Rate Blood Pressure 90/52 (mmHg) O2 Sat by Pulse Oximetry 05/10/17 05/10/17 05/10/17 21:01 22:06 23:43 Temperature 97.2 F 97.7 F Pulse Rate 93 90 Respiratory 16 16 16 Rate Blood Pressure (mmHg) O2 Sat by Pulse 91 100 Oximetry 05/10/17 05/11/17 05/11/17 23:48 00:00 03:17 Temperature 98.0 F Pulse Rate 102 Respiratory 20 Rate Blood Pressure 90/52 90/50 (mmHg) O2 Sat by Pulse 100 98 Oximetry 05/11/17 05/11/17 05/11/17 03:50 05:50 07:30 Temperature Pulse Rate Respiratory 18 18 Rate Blood Pressure 92/62 (mmHg) O2 Sat by Pulse Oximetry 05/11/17 05/11/17 05/11/17 07:34 09:22 11:22 Temperature 98.8 F Pulse Rate 94 Respiratory 14 16 18 Rate Blood Pressure (mmHg) O2 Sat by Pulse 100 Oximetry 05/11/17 11:39 Temperature Pulse Rate Respiratory Rate Blood Pressure 100/62 (mmHg) O2 Sat by Pulse Oximetry Oxygen Devices in Use Now: Nasal Cannula Appearance: Alert, in a chair. In fair sprits. Eyes: No Scleral Icterus Ears/Nose/Mouth/Throat: Mucous Membranes Moist, - - ? thrush in posterior pharynx. Neck: NL Appearance and Movements; NL JVP, No Thyroid Enlargement, Masses Respiratory: Symmetrical Chest Expansion and Respiratory Effort, Clear to Auscultation, Clear to Percussion - diminished BS BL Cardiovascular: NL Sounds; No Murmurs; No JVD, RRR, No Edema, - Extremities: No Edema, No Clubbing, Cyanosis, - Skin: No Rash or Ulcers, No Nodules or Sclerosis, - Neurological: Alert and Oriented x 3, NL Sensation Result Diagrams: 05/10/17 05:31 05/10/17 05:31 Assess/Plan/Problems-Billing Assessment: - Patient Problems (1) Closed left hip fracture Current Visit: Yes Status: Acute Code(s): S72.002A - FRACTURE OF UNSP PART OF NECK OF LEFT FEMUR, INIT SNOMED Code(s): 022933661 Comment: S/P ORIF 10 AM. Analgesics per pt preference. (2) COPD (chronic obstructive pulmonary disease) Current Visit: No Status: Acute Code(s): J44.9 - CHRONIC OBSTRUCTIVE PULMONARY DISEASE, UNSPECIFIED SNOMED Code(s): 40314347 Comment: Continue bronchodilators. Continue Combivent Respimat and Symbicort inhalers. Clotrimazole lozenges QID for thrush. (3) Hypothyroidism Current Visit: No Status: Acute Code(s): E03.9 - HYPOTHYROIDISM, UNSPECIFIED SNOMED Code(s): 10798993 Comment: - TSH wnl 02/20/17, continue Levothyroxine. (4) CAD (coronary artery disease) Current Visit: No Status: Acute Code(s): I25.10 - ATHSCL HEART DISEASE OF [place] CORONARY ARTERY W/O ANG PCTRS SNOMED Code(s): 52118811 Comment: - Stable. - Continue Atorvastatin, re-start ASA 05/11. (5) HTN (hypertension) Current Visit: Yes Status: Acute Code(s): I10 - ESSENTIAL (PRIMARY) HYPERTENSION SNOMED Code(s): 44982870 Comment: Stop valsartan 05/11 due to low BP.
[2017-05-11] MEDS ORDERED: Ipratropium HFA INHALER(NF) (ALTERNATIVE = NEBS) INH SCH (15:00)
[2017-05-11] MEDS ORDERED: Albuterol HFA INHALER* 8 gm MDI INH SCH ×2 (15:00)
[2017-05-11] MEDS: Clotrimazole TROCHE* 10 MG TROCHE PO SCH ×2 (17:04→19:33)
[2017-05-11] MEDS: Aspirin Low Dose CHEW TAB* 81 MG PO SCH (19:33)
[2017-05-11] MEDS: PTO:Budesonide/Formote 160/4.5(NF) MDI INH SCH (19:33)
[2017-05-12] MEDS ORDERED: Albuterol 2.5 MG/3 ML NEB.SOL* (0.083%) INH PRN (03:35)
[2017-05-12] MEDS: Levothyroxine TAB* 50 MCG TAB PO SCH (06:20)
[2017-05-12] MEDS: ALPRAZolam TAB* 0.5 MG PO PRN ×2 (06:20→12:23)
[2017-05-12] MEDS: Sertraline* 50 MG TAB PO SCH (06:20)
[2017-05-12] MEDS: PTO:Albuterol/Ipratropium RESP(NF) MDI (Combivent Respimat) INH SCH ×4 (08:05→22:17)
[2017-05-12] MEDS: PTO:Budesonide/Formote 160/4.5(NF) MDI INH SCH ×2 (08:06→22:13)
[2017-05-12] MEDS: Metoprolol Succinate XL TAB* 25 MG PO SCH (08:15)
[2017-05-12] MEDS: Atorvastatin* 10 MG TAB PO SCH (08:16)
[2017-05-12] MEDS: Clotrimazole TROCHE* 10 MG TROCHE PO SCH ×4 (08:17→22:18)
[2017-05-12] MEDS: Enoxaparin(*) 30 MG/0.3 ML SYR SUBCUT SCH (08:17)
[2017-05-12] MEDS: Tiotropium CAP.INH* CAP.INH/18 MCG (USE ORDER SET !) INH SCH (08:23)
[2017-05-12] MEDS: Acetaminophen TAB* 325 MG PO PRN (12:22)
[2017-05-12] MEDS ORDERED: Levalbuterol 1.25MG/0.5ML NEB INH PRN (14:58)
[2017-05-12] MEDS ORDERED: D5W 1/2 NS KCl 20 Meq 1000 ML* 1,000 ML IV SCH (16:00)
[2017-05-12 16:16] LABS: BUN/Creatinine Ratio 33.3 (8-20); Calcium 8.4 mg/dL (8.6-10.3); EGFR Non-African American 162.5 (>60); Potassium 4.2 mmol/L (3.5-5.0)
[2017-05-12 18:10] LABS: Hematocrit 19 % (35-47); Mean Corpuscular HGB Conc 34 g/dl (31-36); Mean Corpuscular Hemoglobin 33 pg (27-31); Mean Corpuscular Volume 98 fL (80-97); Mean Platelet Volume 7 um3 (7.4-10.4); Red Cell Distribution Width 15 % (10.5-15)
[2017-05-12 18:18] LABS: Comments Flag Yes
[2017-05-12 18:22] LABS: Hemoglobin 6.5 g/dl (12.0-16.0); Red Blood Count 1.96 10^6/ul (4.0-5.4); White Blood Count 9.4 10^3/ul (3.5-10.8)
[2017-05-12] MEDS ORDERED: NS 0.9% 1000 ML* 1,000 ML IV SCH (20:00)
[2017-05-12] MEDS: Aspirin Low Dose CHEW TAB* 81 MG PO SCH (22:18)
[2017-05-12] MEDS: ALPRAZolam TAB* 0.5 MG PO SCH ×2 (22:19→23:44)
[2017-05-13] MEDS: Levothyroxine TAB* 50 MCG TAB PO SCH (05:57)
[2017-05-13] MEDS: Sertraline* 25 MG TAB PO SCH (05:57)
[2017-05-13 07:21] LABS: Hematocrit 32 % (35-47); Hemoglobin 11.1 g/dl (12.0-16.0); Mean Corpuscular HGB Conc 35 g/dl (31-36); Mean Corpuscular Hemoglobin 32 pg (27-31); Mean Corpuscular Volume 91 fL (80-97); Mean Platelet Volume 8 um3 (7.4-10.4); Red Blood Count 3.53 10^6/ul (4.0-5.4); Red Cell Distribution Width 17 % (10.5-15); White Blood Count 9.2 10^3/ul (3.5-10.8)
[2017-05-13] MEDS: PTO:Budesonide/Formote 160/4.5(NF) MDI INH SCH ×2 (07:24→22:08)
[2017-05-13 07:35] LABS: BUN/Creatinine Ratio 33.3 (8-20); Calcium 8.5 mg/dL (8.6-10.3); EGFR African American 229.2 (>60); EGFR Non-African American 178.2 (>60); Potassium 4.1 mmol/L (3.5-5.0)
[2017-05-13] MEDS: Metoprolol Succinate XL TAB* 25 MG PO SCH (09:40)
[2017-05-13] MEDS: Acetaminophen TAB* 325 MG PO PRN ×2 (09:40→13:09)
[2017-05-13] MEDS: ALPRAZolam TAB* 0.5 MG PO SCH ×3 (09:41→21:58)
[2017-05-13] MEDS: Atorvastatin* 10 MG TAB PO SCH (09:41)
[2017-05-13] MEDS: Enoxaparin(*) 30 MG/0.3 ML SYR SUBCUT SCH (09:44)
[2017-05-13] MEDS: Clotrimazole TROCHE* 10 MG TROCHE PO SCH ×4 (09:47→22:01)
[2017-05-13] MEDS: Tiotropium CAP.INH* CAP.INH/18 MCG (USE ORDER SET !) INH SCH (11:02)
[2017-05-13] MEDS: PTO:Albuterol/Ipratropium RESP(NF) MDI (Combivent Respimat) INH SCH (11:03)
[2017-05-13] MEDS ORDERED: PTO:Albuterol/Ipratropium RESP(NF) MDI (Combivent Respimat) INH SCH (13:00)
[2017-05-13] MEDS ORDERED: Magnesium Hydroxide LIQ* 30 ML UDC PO ONE (13:55)
--- NOTE | 2017-05-13 16:20 | PN ---
Subjective Date of Service: 05/13/17 Interval History: Pain better. She did not feel as well after uing only 1 puff Combivent instead of 2. Also constipated. Objective Active Medications: Acetaminophen (Tylenol Tab*) 650 mg PO Q4H PRN PRN Reason: PAIN Last Admin: 05/13/17 13:09 Dose: 650 mg Albuterol (Ventolin Hfa Inhaler*) 2 puff INH QID [facility] Alprazolam (Xanax Tab*) 0.5 mg PO TID [facility] Last Admin: 05/13/17 14:04 Dose: 0.5 mg Aspirin (Aspirin Low Dose Tab*) 81 mg PO 2100 [facility] Last Admin: 05/12/17 22:18 Dose: 81 mg Atorvastatin Calcium (Lipitor*) 10 mg PO QAM [facility] Last Admin: 05/13/17 09:41 Dose: 10 mg Budesonide/Formoterol Fumarate (Symbicort 160/4.5 (Nf)) 2 puff INH BID [facility] PRN Reason: Protocol Clotrimazole (Mycelex Rohith*) 10 mg PO QID [facility] Last Admin: 05/13/17 14:05 Dose: 10 mg Enoxaparin Sodium (Lovenox(*)) 30 mg SUBCUT Q24HR [facility] Last Admin: 05/13/17 09:44 Dose: 30 mg Levalbuterol HCl (Xopenex 1.25 Mg/0.5 Ml Neb.Beulah*) 1.25 mg INH Q4H PRN PRN Reason: DYSPNEA Last Admin: 05/13/17 11:58 Dose: 1.25 mg Levothyroxine Sodium (Synthroid Tab*) 50 mcg PO DAILY@0600 [facility] Last Admin: 05/13/17 05:57 Dose: 50 mcg Metoprolol Succinate (Toprol Xl Tab*) 75 mg PO DAILY [facility] Last Admin: 05/13/17 09:40 Dose: 75 mg Morphine Sulfate (Morphine Inj (Syringe)*) 4 mg IV Q4H PRN PRN Reason: PAIN Last Admin: 05/10/17 07:14 Dose: 4 mg Ondansetron HCl (Zofran Inj*) 4 mg IV Q6H PRN PRN Reason: NAUSEA Last Admin: 05/09/17 19:48 Dose: 4 mg Oxycodone HCl (Roxycodone Tab*) 5 mg PO Q4H PRN PRN Reason: PAIN MODERATE Last Admin: 05/11/17 19:44 Dose: 5 mg Oxycodone HCl (Roxycodone Tab*) 10 mg PO Q4H PRN PRN Reason: PAIN SEVERE Polyvinyl Alcohol (Polyvinyl Alcohol 1.4% Opth*) 1 drop LEFT EYE Q2H PRN PRN Reason: DRY EYE Prochlorperazine Edisylate (Compazine Inj*) 5 mg IV Q6H PRN PRN Reason: NAUSEA/VOMITING Last Admin: 05/09/17 21:02 Dose: 5 mg Sertraline HCl (Zoloft*) 25 mg PO 0600 [facility] Last Admin: 05/13/17 05:57 Dose: 25 mg Vital Signs 05/12/17 05/12/17 05/12/17 19:00 19:09 19:51 Temperature 98.3 F Pulse Rate 77 Respiratory 21 16 Rate Blood Pressure 98/52 (mmHg) O2 Sat by Pulse 99 Oximetry 05/12/17 05/12/17 05/12/17 20:00 21:18 21:35 Temperature 97.8 F 98.3 F Pulse Rate 89 97 94 Respiratory 20 20 20 Rate Blood Pressure 141/72 124/67 (mmHg) O2 Sat by Pulse 98 100 Oximetry 05/12/17 05/13/17 05/13/17 23:44 00:00 00:18 Temperature 98 F Pulse Rate 89 Respiratory 20 20 Rate Blood Pressure 123/57 (mmHg) O2 Sat by Pulse 100 100 Oximetry 05/13/17 05/13/17 05/13/17 01:10 01:25 01:44 Temperature 97.9 F 98.4 F Pulse Rate 96 88 Respiratory 20 20 20 Rate Blood Pressure 122/55 115/60 (mmHg) O2 Sat by Pulse 97 100 Oximetry 05/13/17 05/13/17 05/13/17 04:07 07:15 07:36 Temperature 97.9 F 98.2 F 98.2 F Pulse Rate 89 105 105 Respiratory 20 18 18 Rate Blood Pressure 143/81 109/56 (mmHg) O2 Sat by Pulse 98 100 100 Oximetry 05/13/17 05/13/17 05/13/17 08:00 09:41 11:29 Temperature 98.2 F Pulse Rate 105 Respiratory 18 18 16 Rate Blood Pressure 127/73 (mmHg) O2 Sat by Pulse 97 Oximetry 05/13/17 05/13/17 05/13/17 11:41 12:01 12:02 Temperature Pulse Rate 102 102 Respiratory 18 18 18 Rate Blood Pressure (mmHg) O2 Sat by Pulse 99 99 Oximetry 05/13/17 05/13/17 05/13/17 14:04 15:35 15:36 Temperature 98.1 F Pulse Rate 93 Respiratory 18 22 Rate Blood Pressure 136/78 (mmHg) O2 Sat by Pulse 99 Oximetry 05/13/17 15:53 Temperature Pulse Rate Respiratory 18 Rate Blood Pressure (mmHg) O2 Sat by Pulse Oximetry Oxygen Devices in Use Now: Nasal Cannula Appearance: Alert, sitting up in bed. In good spirits. Looks comfortable. Eyes: No Scleral Icterus Neck: NL Appearance and Movements; NL JVP, No Thyroid Enlargement, Masses Respiratory: Symmetrical Chest Expansion and Respiratory Effort, Clear to Percussion, - - diminished BS BL Cardiovascular: NL Sounds; No Murmurs; No JVD, RRR, No Edema, - Extremities: No Edema, No Clubbing, Cyanosis Skin: No Rash or Ulcers, No Nodules or Sclerosis Neurological: Alert and Oriented x 3, NL Sensation Result Diagrams: 05/13/17 06:28 05/13/17 06:28 Assess/Plan/Problems-Billing Assessment: - Patient Problems (1) Closed left hip fracture Current Visit: Yes Status: Acute Code(s): S72.002A - FRACTURE OF UNSP PART OF NECK OF LEFT FEMUR, INIT SNOMED Code(s): 007762056 Comment: S/P ORIF 10/12 AM. Analgesics per pt preference. (2) COPD (chronic obstructive pulmonary disease) Current Visit: No Status: Acute Code(s): J44.9 - CHRONIC OBSTRUCTIVE PULMONARY DISEASE, UNSPECIFIED SNOMED Code(s): 60833189 Comment: Continue bronchodilators. Continue tiotropiium, albuterol INH, and Symbicort inhaler. Clotrimazole lozenges QID for thrush. (3) Hypothyroidism Current Visit: No Status: Acute Code(s): E03.9 - HYPOTHYROIDISM, UNSPECIFIED SNOMED Code(s): 86629866 Comment: - TSH wnl 02/20/17, continue Levothyroxine. (4) CAD (coronary artery disease) Current Visit: No Status: Acute Code(s): I25.10 - ATHSCL HEART DISEASE OF [place] CORONARY ARTERY W/O ANG PCTRS SNOMED Code(s): 56782400 Comment: - Stable. - Continue Atorvastatin, re-started ASA 05/11. (5) HTN (hypertension) Current Visit: Yes Status: Acute Code(s): I10 - ESSENTIAL (PRIMARY) HYPERTENSION SNOMED Code(s): 42193496 Comment: BP 109/56-136/78 05/13/17.
--- NOTE | 2017-05-13 16:40 | PN ---
Progress Note - Progress Note Date of Service: 05/13/17 Note: Additional diagnosis: Urinary retention. Nurse did bladder sacan 05/12/17 and residual was high enough to warrant Castellanos drainage. Unfortunately I don't think the numerical result was recorded. A nurse today verified that she also received report yesterday of the high PVR.
[2017-05-13] MEDS: Albuterol HFA INHALER* 8 gm MDI INH SCH ×2 (17:49→22:06)
[2017-05-13] MEDS: Aspirin Low Dose CHEW TAB* 81 MG PO SCH (21:59)
[2017-05-13] MEDS ORDERED: NS 0.9% 1000 ML* 1,000 ML IV SCH (22:45)
[2017-05-14] MEDS: Sertraline* 25 MG TAB PO SCH (05:31)
[2017-05-14] MEDS: Levothyroxine TAB* 50 MCG TAB PO SCH (05:31)
[2017-05-14] MEDS: Albuterol HFA INHALER* 8 gm MDI INH SCH ×2 (09:49→13:49)
[2017-05-14] MEDS: PTO:Budesonide/Formote 160/4.5(NF) MDI INH SCH ×2 (09:58→20:50)
[2017-05-14] MEDS: Polyethylene Glycol 3350* 17 GM PACKET PO SCH ×2 (10:13→20:26)
[2017-05-14] MEDS: Atorvastatin* 10 MG TAB PO SCH (10:13)
[2017-05-14] MEDS: ALPRAZolam TAB* 0.5 MG PO SCH ×3 (10:14→20:26)
[2017-05-14 10:15] LABS: Hematocrit 31 % (35-47); Hemoglobin 10.9 g/dl (12.0-16.0); Mean Corpuscular HGB Conc 35 g/dl (31-36); Mean Corpuscular Hemoglobin 32 pg (27-31); Mean Corpuscular Volume 92 fL (80-97); Mean Platelet Volume 7 um3 (7.4-10.4); Red Blood Count 3.37 10^6/ul (4.0-5.4); Red Cell Distribution Width 17 % (10.5-15); White Blood Count 10.9 10^3/ul (3.5-10.8)
[2017-05-14] MEDS: Docusate CAP* 100 MG PO SCH ×2 (10:15→20:27)
[2017-05-14] MEDS: Metoprolol Succinate XL TAB* 25 MG PO SCH (10:15)
[2017-05-14] MEDS: Clotrimazole TROCHE* 10 MG TROCHE PO SCH ×4 (10:16→20:29)
[2017-05-14] MEDS: Enoxaparin(*) 30 MG/0.3 ML SYR SUBCUT SCH (10:17)
[2017-05-14 10:47] LABS: BUN/Creatinine Ratio 23.5 (8-20); Blood Urea Nitrogen 8 mg/dL (6-24); CO2 Carbon Dioxide 33 mmol/L (22-32); Calcium 8.1 mg/dL (8.6-10.3); Chloride 95 mmol/L (101-111); EGFR African American 244.8 (>60); EGFR Non-African American 190.4 (>60); Glucose 110 mg/dL (70-100); Potassium 4.4 mmol/L (3.5-5.0); Sodium 128 mmol/L (133-145)
[2017-05-14] MEDS: Acetaminophen TAB* 325 MG PO PRN ×2 (12:31→16:57)
[2017-05-14] MEDS: ALBUTEROL INH SCH ×2 (15:34→20:45)
[2017-05-14] MEDS: IPRATROPIUM RESP MDI INH SCH ×2 (15:34→20:45)
--- NOTE | 2017-05-14 16:32 | PN ---
Subjective Date of Service: 05/14/17 Interval History: HOSPITALIST PROGRESS NOTE Patient seen and examined at bedside. She offers no complaints at this time, but family is concerned with her condition. They want her to receive the exact same COPD inhalers she was using at home, are concerned she's not "sharp as a tack" like before, and are very clear they don't want her to go to SNF for rehab. She seems to be less confused than before, as she was able to tell her she had one extra Combivent at home and was able to tell him it's exact location. Family History: Unchanged from Admission Social History: Unchanged from Admission Past Medical History: Unchanged from Admission Objective Active Medications: Acetaminophen (Tylenol Tab*) 650 mg PO Q4H PRN PRN Reason: PAIN Last Admin: 05/14/17 12:31 Dose: 650 mg Albuterol/Ipratropium (Combivent Respimat(Nf)) 2 puff INH RT.QID [facility] PRN Reason: Protocol Last Admin: 05/14/17 15:34 Dose: 2 puff Alprazolam (Xanax Tab*) 0.5 mg PO TID [facility] Last Admin: 05/14/17 14:16 Dose: 0.5 mg Aspirin (Aspirin Low Dose Tab*) 81 mg PO 2100 [facility] Last Admin: 05/13/17 21:59 Dose: 81 mg Atorvastatin Calcium (Lipitor*) 10 mg PO QAM [facility] Last Admin: 05/14/17 10:13 Dose: 10 mg Budesonide/Formoterol Fumarate (Symbicort 160/4.5 (Nf)) 2 puff INH BID [facility] PRN Reason: Protocol Last Admin: 05/14/17 09:58 Dose: 2 puff Clotrimazole (Mycelex Rohith*) 10 mg PO QID [facility] Last Admin: 05/14/17 12:33 Dose: 10 mg Docusate Sodium (Colace Cap*) 100 mg PO BID [facility] Last Admin: 05/14/17 10:15 Dose: 100 mg Enoxaparin Sodium (Lovenox(*)) 30 mg SUBCUT Q24HR [facility] Last Admin: 05/14/17 10:17 Dose: 30 mg Levalbuterol HCl (Xopenex 1.25 Mg/0.5 Ml Neb.Beulah*) 1.25 mg INH Q4H PRN PRN Reason: DYSPNEA Last Admin: 05/13/17 11:58 Dose: 1.25 mg Levothyroxine Sodium (Synthroid Tab*) 50 mcg PO DAILY@0600 [facility] Last Admin: 05/14/17 05:31 Dose: 50 mcg Metoprolol Succinate (Toprol Xl Tab*) 75 mg PO DAILY [facility] Last Admin: 05/14/17 10:15 Dose: 75 mg Morphine Sulfate (Morphine Inj (Syringe)*) 4 mg IV Q4H PRN PRN Reason: PAIN Last Admin: 05/10/17 07:14 Dose: 4 mg Ondansetron HCl (Zofran Inj*) 4 mg IV Q6H PRN PRN Reason: NAUSEA Last Admin: 05/09/17 19:48 Dose: 4 mg Oxycodone HCl (Roxycodone Tab*) 5 mg PO Q4H PRN PRN Reason: PAIN MODERATE Last Admin: 05/11/17 19:44 Dose: 5 mg Oxycodone HCl (Roxycodone Tab*) 10 mg PO Q4H PRN PRN Reason: PAIN SEVERE Polyethylene Glycol/Electrolytes (Miralax*) 17 gm PO 0800,2100 [facility] Last Admin: 05/14/17 10:13 Dose: 17 gm Polyvinyl Alcohol (Polyvinyl Alcohol 1.4% Opth*) 1 drop LEFT EYE Q2H PRN PRN Reason: DRY EYE Prochlorperazine Edisylate (Compazine Inj*) 5 mg IV Q6H PRN PRN Reason: NAUSEA/VOMITING Last Admin: 05/09/17 21:02 Dose: 5 mg Sertraline HCl (Zoloft*) 25 mg PO 0600 [facility] Last Admin: 05/14/17 05:31 Dose: 25 mg Vital Signs 05/14/17 05/14/17 05/14/17 04:01 07:11 08:11 Temperature 97.5 F 97.7 F Pulse Rate 85 86 Respiratory 20 22 22 Rate Blood Pressure 154/87 151/76 (mmHg) O2 Sat by Pulse 100 100 100 Oximetry Oxygen Devices in Use Now: Nasal Cannula - 2 liters Appearance: Elderly cachectic lady sitting up in a chair in NAD. Eyes: No Scleral Icterus Ears/Nose/Mouth/Throat: Mucous Membranes Moist Neck: Trachea Midline Respiratory: Symmetrical Chest Expansion and Respiratory Effort, - - BS+ bilaterally decreased with no added sounds Cardiovascular: RRR - Normal S1 and S2 Extremities: - - Left thigh edema, with no pain on palpation, CDI to left hip, good capillary refill Neurological: Alert and Oriented x 3, NL Muscle Strength and Tone Lines/Tubes/Other Access: Clean, Dry and Intact Peripheral IV Nutrition: Taking PO's Result Diagrams: 05/14/17 10:05 05/14/17 10:05 Assess/Plan/Problems-Billing Assessment: Mrs. Cabello is a 72yo F with PMH of advanced COPD on chronic home O2, CAD, HTN, Raynaud's, HLD, hypothyroidism, who presented to ED after a fall with c/o left hip pain, s/p left hip ORIF on 05/10/17. - Patient Problems (1) Delirium Comment: - Secondary to combination of hospital admission, anesthesia, pain medications. - Seems to be clearing up. - Family educated about diagnosis. - Continue supportive care. (2) Closed left hip fracture Comment: - s/p ORIF 05/[address] Campos. - Management as per Ortho. (3) Malnutrition Comment: - Suspect patient has at least mild to moderate malnutrition considering her weight and BMI. - Check prealbumin. (4) COPD (chronic obstructive pulmonary disease) Comment: - No signs of exacerbation at this time. - Continue Symbicort and patient's family will bring her own Combivent. - Continue supplemental O2. - Add flutter valve. (5) DVT prophylaxis Comment: - Lovenox. (6) Full code status Current Visit: Yes (7) Physical deconditioning Comment: - Patient qualifies for rehab, but family wnats to take her home with / care. They plan to have aides, private RN and private PT hired prior to discharge. - CM to assist.
[2017-05-14] MEDS: Aspirin Low Dose CHEW TAB* 81 MG PO SCH (20:28)
--- NOTE | 2017-05-14 20:45 | RAD ---
Indication: Left knee pain and swelling 2 views of left knee are reviewed. There is increased density in the distal femur and proximal tibia with chondrocalcinosis. I cannot totally exclude hyperparathyroidism. IMPRESSION: Chondrocalcinosis. No fracture is noted. Increased sclerosis in the distal femur and proximal tibia suspicious for hyperparathyroidism or renal osteodystrophy. Clinical correlation is suggested.
[2017-05-15] MEDS: Acetaminophen TAB* 325 MG PO PRN ×2 (01:21→09:19)
[2017-05-15] MEDS: Levothyroxine TAB* 50 MCG TAB PO SCH (05:49)
[2017-05-15] MEDS: Sertraline* 25 MG TAB PO SCH (05:49)
[2017-05-15] MEDS: ALPRAZolam TAB* 0.5 MG PO SCH ×2 (05:54→09:16)
[2017-05-15] MEDS: Polyethylene Glycol 3350* 17 GM PACKET PO SCH (08:05)
[2017-05-15] MEDS: Docusate CAP* 100 MG PO SCH (08:25)
--- NOTE | 2017-05-15 08:26 | PN ---
Progress Note - Progress Note Date of Service: 05/15/17 SOAP: Subjective: resting comfortably with minimal complaints of left hip pain; c/o of left elbow pain with significant bruising Objective: Vital Signs Temp Pulse Resp BP Pulse Ox 99.7 F 87 15 145/77 100 05/15/17 07:22 05/15/17 07:22 05/15/17 07:22 05/15/17 07:22 05/15/17 07:22 Laboratory Last Values WBC 10.9 10^3/ul (3.5-10.8) H 05/14/17 10:05 RBC 3.37 10^6/ul (4.0-5.4) L 05/14/17 10:05 Hgb 10.9 g/dl (12.0-16.0) L 05/14/17 10:05 Hct 31 % (35-47) L 05/14/17 10:05 MCV 92 fL (80-97) 05/14/17 10:05 MCH 32 pg (27-31) H 05/14/17 10:05 MCHC 35 g/dl (31-36) 05/14/17 10:05 RDW 17 % (10.5-15) H 05/14/17 10:05 Plt Count 117 10^3/ul (150-450) L 05/14/17 10:05 MPV 7 um3 (7.4-10.4) L 05/14/17 10:05 Neut % (Auto) 88.2 % (38-83) H 05/14/17 10:05 Lymph % (Auto) 2.8 % (25-47) L 05/14/17 10:05 Mccone % (Auto) 8.0 % (1-9) 05/14/17 10:05 Eos % (Auto) 0.6 % (0-6) 05/14/17 10:05 Baso % (Auto) 0.4 % (0-2) 05/14/17 10:05 Absolute Neuts (auto) 9.6 10^3/ul (1.5-7.7) H 05/14/17 10:05 Absolute Lymphs (auto) 0.3 10^3/ul (1.0-4.8) L 05/14/17 10:05 Absolute Monos (auto) 0.9 10^3/ul (0-0.8) H 05/14/17 10:05 Absolute Eos (auto) 0.1 10^3/ul (0-0.6) 05/14/17 10:05 Absolute Basos (auto) 0 10^3/ul (0-0.2) 05/14/17 10:05 Absolute Nucleated RBC 0 10^3/ul 05/14/17 10:05 Nucleated RBC % 0 05/14/17 10:05 INR (Anticoag Therapy) 0.94 (0.89-1.11) 05/10/17 09:50 Sodium 128 mmol/L (133-145) L 05/14/17 10:05 Potassium 4.4 mmol/L (3.5-5.0) 05/14/17 10:05 Chloride 95 mmol/L (101-111) L 05/14/17 10:05 Carbon Dioxide 33 mmol/L (22-32) H 05/14/17 10:05 Anion Gap 4 mmol/L (2-11) 05/13/17 06:28 BUN 8 mg/dL (6-24) 05/14/17 10:05 Creatinine 0.34 mg/dL (0.51-0.95) L 05/14/17 10:05 Est GFR ( Amer) 244.8 (>60) 05/14/17 10:05 Est GFR (Non-Af Amer) 190.4 (>60) 05/14/17 10:05 BUN/Creatinine Ratio 23.5 (8-20) H 05/14/17 10:05 Glucose 110 mg/dL (70-100) H 05/14/17 10:05 Lactic Acid 0.6 mmol/L (0.5-2.0) 05/09/17 20:10 Calcium 8.1 mg/dL (8.6-10.3) L 05/14/17 10:05 Total Bilirubin 0.50 mg/dL (0.2-1.0) 05/09/17 20:10 AST 29 U/L (13-39) 05/09/17 20:10 ALT 18 U/L (7-52) 05/09/17 20:10 Alkaline Phosphatase 74 U/L (34-104) 05/09/17 20:10 Ammonia 49 mol/L (16-53) 05/14/17 06:37 C-Reactive Protein 2.48 mg/L (< 5.00) 05/09/17 20:10 Total Protein 6.3 g/dL (6.4-8.9) L 05/09/17 20:10 Albumin 3.6 g/dL (3.2-5.2) 05/09/17 20:10 Globulin 2.7 g/dL (2-4) 05/09/17 20:10 Albumin/Globulin Ratio 1.3 (1-3) 05/09/17 20:10 Blood Type B Positive 05/10/17 09:50 Antibody Screen Negative 05/10/17 09:50 Crossmatch See Detail 05/10/17 09:50 incision: c/d; dressing changed PE: NVI Assessment: s/p ORIF left hip Plan: 1) ASA/Lovenox for DVT prophylaxis 2) continue current pain meds 3) PT/OT 4) possible PMRU transfer 5) will order xray left elbow; R/U fracture <Brianda Nick - Last Filed: 05/15/17 08:23> - Progress Note SOAP: addendum: knee xrays evaluated and no fracture seen. On my examination yesterday evening she had painless PROM of the left hip and knee. Thigh soft. Likely postop edema about the left thigh and knee. She reports she has been weight bearing and progressing with PT. Andrae Campos MD <Andrae Campos - Last Filed: 05/15/17 09:11>
[2017-05-15] MEDS: IPRATROPIUM RESP MDI INH SCH ×2 (09:12→11:22)
[2017-05-15] MEDS: ALBUTEROL INH SCH ×2 (09:12→11:22)
[2017-05-15] MEDS: PTO:Budesonide/Formote 160/4.5(NF) MDI INH SCH (09:16)
[2017-05-15] MEDS: Atorvastatin* 10 MG TAB PO SCH (09:19)
[2017-05-15] MEDS: Metoprolol Succinate XL TAB* 25 MG PO SCH (09:20)
[2017-05-15] MEDS: Enoxaparin(*) 30 MG/0.3 ML SYR SUBCUT SCH (09:21)
--- NOTE | 2017-05-15 09:41 | RAD ---
INDICATION: Swelling and bruising to left elbow after a fall COMPARISON: None. TECHNIQUE: 4 views left elbow. REPORT: The anterior fat pad is elevated from the left humeral epicondyles at a thickness of 7 mm. There is no posterior joint effusion. The bones of the left elbow are adequately corticated and aligned. No definite bony fracture is visualized. IMPRESSION: Potential small left elbow effusion without visible bony fracture could be seen in the setting of soft tissue injury or an occult fracture. If the patient's symptoms persist further follow-up imaging is recommended.
[2017-05-15] MEDS: Clotrimazole TROCHE* 10 MG TROCHE PO SCH (11:27)
[2017-05-15 11:40] VITALS: BP 153/78
[2017-05-15 12:08] LABS: Prealbumin 7 mg/dL (18-38)
--- NOTE | 2017-05-16 05:15 | DS ---
CC: Dr. James; Dr. Castaneda; Dr. Campos; Dr. Malcolm; Dr. Aguilar at [facility] * DISCHARGE SUMMARY: DATE OF ADMISSION: 05/09/17 DATE OF DISCHARGE: 05/15/17 PRIMARY CARE PROVIDER: Dr. James. CURRICULUM DIRECTOR: Dr. Castaneda. ORTHOPEDIST: Dr. Campos. DISCHARGE DIAGNOSES: 1. Left comminuted intertrochanteric fracture, status post open reduction internal fixation on 05/10/17. 2. Post-op delirium. 3. Chronic obstructive pulmonary disease. 4. Essential tremors. 5. Moderate malnutrition with a prealbumin of 7 and a BMI of 15. SECONDARY DIAGNOSES: 1. Advanced chronic obstructive pulmonary disease, on chronic home oxygen at 2 L continuously. 2. Coronary artery disease with a history of myocardial infarction in 1995. 3. Hypertension. 4. Raynaud's phenomenon. 5. Hyperlipidemia. 6. History of oral cancer. 7. Hypothyroidism. MEDICATIONS AT THE TIME OF TRANSFER: 1. Metoprolol succinate 75 mg p.o. daily. 2. Aspirin 81 mg p.o. daily. 3. Alprazolam 0.5 mg p.o. 4 times a day. 4. Symbicort 160/4.5 two puffs inhaled b.i.d. 5. Atorvastatin 10 mg p.o. q.a.m. 6. Levothyroxine 50 mcg p.o. q.a.m. 7. Combivent 2 puffs inhaled 4 times a day. New medications: 1. MiraLAX 17 g p.o. b.i.d., hold for loose stool. 2. Lovenox 30 mg subcutaneously daily for DVT prophylaxis. Orthopedist to decide duration of treatment. 3. Colace 100 mg p.o. b.i.d. The patient's sertraline had been stopped due to her delirium but as her mental status continues to improve, I think it can be resumed. Valsartan was also held prior to her surgery and as her blood pressure continues to improve, I believe it could be re-introduced. HOSPITAL COURSE: Mrs. Cabello is a 72-year-old lady with a past medical history as stated above that presented to the emergency room on 05/09/17 with a complaint of left hip pain after a fall. The fall was described as transportation mechanic. She stood up in the kitchen and she believes she slipped on the floor and fell. There was no history of loss of consciousness. For more details about her presentation, I refer you to her history and physical. In the emergency room, the patient had a hip and pelvis x-ray that showed a comminuted intertrochanteric fracture of the left hip with varus angulation. The patient was admitted for further evaluation and treatment. Chest x-ray showed stigmata of obstructive lung disease but no acute pulmonary or cardiac process. The patient was seen in consultation by orthopedist (Dr. Campos) and after reviewing surgical and nonsurgical treatment options, the surgical risks, decision was made to proceed with surgical repair. On 05/10/17, the patient underwent an open reduction and internal fixation of the left hip fracture utilizing an intramedullary nail. In the postop period, the patient developed delirium and significant tremors, but those slowly improved and on 05/15/17, the patient was offered a bed at [facility] for rehabilitation, and the patient and her family agreed with it. She was seen in followup by Orthopedics and the recommendation was to continue Lovenox for DVT prophylaxis. She will need to follow up with Dr. Campos in 10 to 14 days. The patient was complaining of left lower extremity edema and a knee x-ray was performed and showed chondrocalcinosis but no fracture. She also complained of left elbow swelling, it showed a potential small left elbow effusion without visible bony fracture that could be seen in the setting of soft tissue injury or an occult fracture. The patient's left thigh was swollen but not tender, not indurated and this was felt to be the usual postop edema. She is medically stable to be discharged to [facility] today to continue her rehabilitation process. PHYSICAL EXAMINATION: Vital Signs: Temperature 98.9, heart rate 88, respiratory rate 14, oxygen saturation 100% on 2 L of nasal cannula, blood pressure 153/78. General: The patient is an elderly cachetic lady, sitting up in bed in no acute distress. CVS: Normal S1, S2. Regular rate and rhythm. Chest: Breath sounds bilaterally decreased with no added sounds. Extremities: There is mild left thigh edema but no edema further down. Neuro: She is alert and oriented x3, and able to move all 4 extremities. DIET: Regular diet. ACTIVITY: As tolerated. DISPOSITION: To home. STATUS WHILE IN THE HOSPITAL: Inpatient. Please keep in mind that this is a summarized version of this patient's hospital stay. If you need more information, please feel free to call me at [phone] or please obtain the full medical records. TIME SPENT: Approximately 45 minutes were spent to complete this discharge. [id number]/CPS #: [id number] MTDD
== END 2017-05-15 12:03 | DRG 481 ==
LOC: ED 16:20 → MED 19:27 → SSU 05-10 14:48
PROVIDERS: ADMIT Hospitalist; ATTEND Internal Medicine
PROC: 30233N1 Transfusion of Nonautologous Red Blood Cells into Peripheral Vein, Percutaneous Approach (ICD-10-PCS; 2017-05-10)
PROC: 0QS704Z Reposition Left Upper Femur with Internal Fixation Device, Open Approach (ICD-10-PCS; principal; 2017-05-10 10:15)
DX: S72.142A Displaced intertrochanteric fracture of left femur, initial encounter for closed fracture (principal); J96.11 Chronic respiratory failure with hypoxia; E44.0 Moderate protein-calorie malnutrition; E87.1 Hypo-osmolality and hyponatremia; F05 Delirium due to known physiological condition; B37.9 Candidiasis, unspecified; Z68.1 Body mass index [BMI] 19.9 or less, adult; J44.9 Chronic obstructive pulmonary disease, unspecified; E05.80 Other thyrotoxicosis without thyrotoxic crisis or storm; F41.9 Anxiety disorder, unspecified; R40.2362 Coma scale, best motor response, obeys commands, at arrival to emergency department; R40.2142 Coma scale, eyes open, spontaneous, at arrival to emergency department; R40.2252 Coma scale, best verbal response, oriented, at arrival to emergency department; E78.5 Hyperlipidemia, unspecified; I25.10 Atherosclerotic heart disease of native coronary artery without angina pectoris; E03.9 Hypothyroidism, unspecified; H26.9 Unspecified cataract; I73.00 Raynaud's syndrome without gangrene; R33.9 Retention of urine, unspecified; K59.00 Constipation, unspecified; S59.802A Other specified injuries of left elbow, initial encounter; M11.262 Other chondrocalcinosis, left knee; G25.0 Essential tremor; Y92.000 Kitchen of unspecified non-institutional (private) residence as the place of occurrence of the external cause; W01.0XXA Fall on same level from slipping, tripping and stumbling without subsequent striking against object, initial encounter; I10 Essential (primary) hypertension; D64.9 Anemia, unspecified; Z88.1 Allergy status to other antibiotic agents; Z88.8 Allergy status to other drugs, medicaments and biological substances; Z85.810 Personal history of malignant neoplasm of tongue; Z92.3 Personal history of irradiation; Z87.891 Personal history of nicotine dependence; Z99.81 Dependence on supplemental oxygen; I25.2 Old myocardial infarction; Z82.5 Family history of asthma and other chronic lower respiratory diseases; Z82.49 Family history of ischemic heart disease and other diseases of the circulatory system; Z23 Encounter for immunization; Z79.82 Long term (current) use of aspirin
CPT/HCPCS: 36415; 71010; 76000; 80048; 80053; 82140; 83605; 84134; 85025; 85027; 85610; 86140; 86850; 86900; 86901; 86922; 90686; 93005; 94640; 94760; A9270-GY; C1713; C1776; J0330; J0690; J0780; J1644; J1650; J2250; J2270; J2310; J2405; J2704; J3010; P9040

== ENCOUNTER 2017-07-22 10:25 | Emergency (ER) | payer MEDICARE ==
[2017-07-22 11:50] VITALS: BP 109/60
--- NOTE | 2017-07-22 12:36 | UC ---
Abdominal Pain Female HPI - HPI Summary HPI Summary: Pt presents to by POV with her daughter and . Pt is 3 months s/p left THR. Pt has been home from rehab x 3 weeks. On she caught her foot and had a mechanical fall. was present, did not strike head, no LOC no injury. Starting on Sun pt with intermittent sharp RLQ pain and achiness. Pain had become constant and persistent. Pain is worse with any movement or palpation. No radiation. Pt with + nausea no vomiting. Pt with poor appetite at baseline. No documented fevers, + chills. pt's last BM 2 days ago - baseline - does not feel constipated. No dysuria, no hematuria. Pt has been taking Oxycodone for her hip - does not help her abdomen. Pt staes hip pain well controlled. Pt is not on anticoagulation. Pt's medications reviewed this visit - History of Current Complaint Chief Complaint: UCAbdominalPain Stated Complaint: HIP INJURY Time Seen by Provider: 07/22/17 12:23 Hx Obtained From: Patient Hx Last Menstrual Period: 07/30/1999 ?: Yes Onset/Duration: Gradual Onset Timing: Constant Severity Initially: Mild Pain Intensity: 8 Pain Scale Used: 0-10 Numeric Location: Discrete At: RUQ, Discrete At: RLQ Radiates: No Character: Sharp Aggravating Factor(s): Movement Alleviating Factor(s): Position Associated Signs and Symptoms: Positive: Decreased Appetite, Nausea. Negative: Constipation, Vomiting Allergies/Adverse Reactions: Allergies Allergy/AdvReac Type Severity Reaction Status Date / Time Levofloxacin Allergy Intermediate Swelling Verified 07/22/17 11:42 Ciprofloxacin Allergy Muscle Ache Verified 07/22/17 11:42 Lamotrigine [From Lamictal] Allergy Rash Verified 07/22/17 11:42 Lorazepam [From Ativan] Allergy See Comment Verified 07/22/17 11:42 Nifedipine [From Procardia] Allergy Rash Verified 07/22/17 11:42 Topiramate Allergy See Comment Verified 07/22/17 11:42 Zonisamide Allergy Unknown Verified 07/22/17 11:42 Reaction Details Levetiracetam [From Keppra] AdvReac See Comment Verified 07/22/17 11:42 ANTI=SEIZURE MEDICINE Allergy See Comment Uncoded 07/22/17 11:42 Home Medications: Home Medications Aspirin [Aspirin 81 MG TAB] 07/22/17 [History] Valsartan TAB* [Diovan TAB*] 07/22/17 [History] PMH/Surg Hx/FS Hx/Imm Hx Previously Healthy: Yes Respiratory History: COPD - oxygen GI/ History: Other - colitis Other GI/ History: colitis Other Cancer History: salivary gland CA Other History Of: Negative For: Anticoagulant Therapy - Surgical History Surgical History: Yes Surgery Procedure, Year, and Place: 08/27/13 - BIOPSY UNDER TONGUE [id number], salivary gland and lymph node removed from left neck[place] [facility] [place] Family History Known Family History: Positive: None - Social History Occupation: Unemployed Lives: With Family Alcohol Use: None Alcohol Amount: 1-2 GLASSES/DAY Substance Use Type: None Smoking Status (MU): Former Smoker Type: Cigarettes Amount Used/How Often: 45 years Length of Time of Smoking/Using Tobacco: 07/30/2011 Have You Smoked in the Last Year: No When Did the Patient Quit Smoking/Using Tobacco: 07/30/2011 Household Exposure Type: Cigarettes - Immunization History Most Recent Influenza Vaccination: 2017 Most Recent Tetanus Shot: UNKNOWN Most Recent Pneumonia Vaccination: 2014 Review of Systems Constitutional: Chills, Fatigue Respiratory: Negative, Other - baseline COPD - on Oxygen Gastrointestinal: Abdominal Pain, Nausea Genitourinary: Negative Motor: Negative Neurovascular: Negative Musculoskeletal: Negative Neurological: Negative All Other Systems Reviewed And Are Negative: Yes Physical Exam Triage Information Reviewed: Yes Appearance: Pain Distress, Other: - fragile appearing Vital Signs: Initial Vital Signs Temp 99.3 F 07/22/17 11:45 Pulse 86 07/22/17 11:45 Resp 16 07/22/17 11:45 BP 109/60 07/22/17 11:45 Pulse Ox 100 07/22/17 11:45 Vital Signs Reviewed: Yes ENT Exam: Normal ENT: Positive: Hearing grossly normal Dental Exam: Normal Neck exam: Normal Neck: Positive: Supple, Nontender Respiratory Exam: Normal Respiratory: Positive: Chest non-tender, Lungs clear, Normal breath sounds, No respiratory distress, No accessory muscle use Cardiovascular Exam: Normal Cardiovascular: Positive: RRR, No Murmur, Pulses Normal Abdomen Description: Positive: Soft, Other: - this soft + TTP right mid upper > lower abdomen + BS/decrease. Negative: Nontender, CVA Tenderness (R), CVA Tenderness (L), Distended Musculoskeletal Exam: Normal Neurological Exam: Normal Psychological Exam: Normal Skin Exam: Normal Abd Pain Female Course/Dx - Course Course Of Treatment: Pt with progressive right mid abdominal pain x 3 days + nausea. Pt acutely tender to palp right mid abd. d/w pt and family at length. concern for appendicitis vs vera. recommend pt to ED for futher evaluation and treatment. Pt will go to ED by private vehicle. driving - Differential Dx/Diagnosis Provider Diagnoses: abdominal pain, right sided Discharge - Discharge Plan Condition: Stable Disposition: OTHER Discharge Disposition Comment: ED by POV Patient Education Materials: Abdominal Pain (ED) Referrals: Daxa James MD [Primary Care Provider] - Additional Instructions: The doctor that evaluated you today recommends you go to the emergency department for further testing and evaluation. This testing will likely include laboratory and radiologic evaluation. If you develop increased discomfort or any other concerns enroute, pin puller and call 911 The emergency department has been alerted you will be arriving my private vehicle
== END 2017-07-22 12:56 ==
LOC: UCEAST 10:25
DX: R10.9 Unspecified abdominal pain (principal); J44.9 Chronic obstructive pulmonary disease, unspecified; Z88.3 Allergy status to other anti-infective agents; Z79.82 Long term (current) use of aspirin; Z99.81 Dependence on supplemental oxygen; Z85.89 Personal history of malignant neoplasm of other organs and systems; Z87.891 Personal history of nicotine dependence; Z96.642 Presence of left artificial hip joint
CPT/HCPCS: 99212; G0463

== ENCOUNTER 2017-07-22 13:16 | Emergency (ER) | payer MEDICARE ==
[2017-07-22] MEDS ORDERED: HYDROmorphone INJ* 1 MG/ML CARPUJECT SYRINGE IV ONE ×3 (14:08→17:50)
[2017-07-22] MEDS ORDERED: NS 0.9% 1000 ML* 1,000 ML IV ONE ×2 (14:08→15:45)
[2017-07-22] MEDS ORDERED: Ondansetron INJ* 2 MG/ML VIAL IV ONE (14:20)
[2017-07-22] MEDS ORDERED: Ondansetron INJ* 2 MG/ML VIAL ONE (14:23)
[2017-07-22 14:30] LABS: Hematocrit 39 % (35-47); Hemoglobin 13.1 g/dl (12.0-16.0); Mean Corpuscular HGB Conc 33 g/dl (31-36); Mean Corpuscular Hemoglobin 33 pg (27-31); Mean Corpuscular Volume 99 fL (80-97); Mean Platelet Volume 7 um3 (7.4-10.4); Red Blood Count 3.99 10^6/ul (4.0-5.4); Red Cell Distribution Width 16 % (10.5-15); White Blood Count 5.8 10^3/ul (3.5-10.8)
[2017-07-22 14:45] LABS: ALT 9 U/L (7-52); AST 22 U/L (13-39); Albumin 3.6 g/dL (3.2-5.2); Alkaline Phosphatase 163 U/L (34-104); Anion Gap 5 mmol/L (2-11); BUN/Creatinine Ratio 11.9 (8-20); Blood Urea Nitrogen 5 mg/dL (6-24); C Reactive Protein 16.37 mg/L (< 5.00); CO2 Carbon Dioxide 32 mmol/L (22-32); Calcium 8.9 mg/dL (8.6-10.3); Chloride 91 mmol/L (101-111); EGFR African American 191.8 (>60); EGFR Non-African American 149.2 (>60); Globulin 3.3 g/dL (2-4); Glucose 94 mg/dL (70-100); Lipase < 10 U/L (11.0-82.0); Potassium 3.7 mmol/L (3.5-5.0); Sodium 128 mmol/L (133-145); Total Protein 6.9 g/dL (6.4-8.9)
[2017-07-22] MEDS ORDERED: Iohexol 300* (CONTRAST) 10 ML SDV IV ONE (14:54)
[2017-07-22] MEDS ORDERED: HYDROmorphone INJ* 1 MG/ML CARPUJECT SYRINGE ONE (15:43)
[2017-07-22] MEDS ORDERED: Iodixanol* (CONTRAST) 320 MG/ML 100 ML SDV IV ONE (15:43)
[2017-07-22 16:38] LABS: Urine Bilirubin Negative (Negative); Urine Glucose Negative (Negative); Urine Nitrite Negative (Negative)
--- NOTE | 2017-07-22 17:03 | RAD ---
Indication: Right lower quadrant pain. Contrast: Administered 45.2 ml of VISAPAQUE 320 mg/ml CT of the abdomen and pelvis was performed after oral and IV contrast administration. Coronal and sagittal reconstructed images were obtained. There is a small right pleural effusion. Right basilar atelectasis is noted. The heart demonstrates no pericardial effusion. Atherosclerotic aorta is noted. Liver is normal in size. No focal lesions or intrahepatic ductal dilatation is noted. The spleen is normal in size. The pancreas demonstrates no mass or pancreatic ductal dilatation. The common duct is not dilated. The gallbladder demonstrates no calcified gallstones. No pericholecystic fluid or wall thickening identified. No adrenal masses are noted. The kidneys demonstrate symmetric nephrograms. No hydronephrosis of either kidney is noted. No definite evidence of appendicitis is noted. No free fluid is identified. The uterus and ovaries are unremarkable. In the left gluteus muscle there is a large hyperdense mass measuring 5.2 x 5.2 4.4 cm. This is somewhat denser than expected for hematoma. There appears to be contrast extravasated into this area. An active bleed is not totally excluded. Patient status post left hip repair. No free fluid is identified. There is no evidence of bowel obstruction. Contrast is noted in the colon. IMPRESSION: Right pleural effusion of [id number] size. Appendix is not visualized however no evidence of appendicitis is noted. There is a 5.2 x 5.2 x 4.4 cm hyperdense mass in the left gluteus muscle. The possibility of active hemorrhage with contrast extravasation cannot be excluded.
--- NOTE | 2017-07-22 19:27 | RAD ---
Indication: Right lower quadrant pain. Real-time sonography of the right upper quadrant was performed. The liver is normal in size. There are no focal lesions or intrahepatic ductal dilatation. The gallbladder demonstrates no gallstones, pericholecystic fluid or wall thickening. The common duct measures 6 mm. The right kidney measures 10.8 x 4.1 x 4.0 cm with no hydronephrosis. The visualized pancreas is unremarkable. IMPRESSION: No evidence of cholelithiasis or biliary duct dilatation is noted.
--- NOTE | 2017-07-22 19:42 | ED ---
Keenan Roberts Tecjoon, scribed for Jorge Sen MD on 07/22/17 at 1407 . Abdominal Pain/Female - HPI Summary HPI Summary: This patient is a 72 year old female presenting to [facility] accompanied by family with a chief complaint of RLQ abdominal pain since 2 days ago that has progressively worsened. The pain is rated 10/10 in severity and patient intermittently undergoes a spasm which severely worsens the pain for a few seconds. Symptoms aggravated by movement, palpation, ambulation. Symptoms alleviated by sitting very quietly. Patient additionally reports chills, nausea. Patient denies fever, chest pain, cough, dysuria, constipation, blood in stool, diarrhea. Patient had similar pain a few years ago with milder symptoms with an inconclusive dx. - History of Current Complaint Chief Complaint: EDAbdPain Stated Complaint: ABD PAIN,COMING FROM [facility] Time Seen by Provider: 07/22/17 13:46 Hx Obtained From: Patient Hx Last Menstrual Period: 07/30/1999 Onset/Duration: Lasting Days - 2, Still Present Timing: Intermittent Episode Lasting - "spasms" lasting few seconds Severity Currently: Severe Pain Intensity: 10 Pain Scale Used: 0-10 Numeric Location: Discrete At: RLQ Aggravating Factor(s): Movement, Other: - palpation, ambulation Alleviating Factor(s): Other: - "staying very still" Associated Signs and Symptoms: Positive: Negative - fever, chest pain, cough, dysuria, constipation, blood in stool, diarrhea, Other: - chills, nausea Allergies/Adverse Reactions: Allergies Allergy/AdvReac Type Severity Reaction Status Date / Time Levofloxacin Allergy Intermediate Swelling Verified 07/22/17 11:42 Ciprofloxacin Allergy Muscle Ache Verified 07/22/17 11:42 Lamotrigine [From Lamictal] Allergy Rash Verified 07/22/17 11:42 Lorazepam [From Ativan] Allergy See Comment Verified 07/22/17 11:42 Nifedipine [From Procardia] Allergy Rash Verified 07/22/17 11:42 Topiramate Allergy See Comment Verified 07/22/17 11:42 Zonisamide Allergy Unknown Verified 07/22/17 11:42 Reaction Details Levetiracetam [From Keppra] AdvReac See Comment Verified 07/22/17 11:42 ANTI=SEIZURE MEDICINE Allergy See Comment Uncoded 12/24/17 11:42 PMH/Surg Hx/FS Hx/Imm Hx Previously Healthy: No Endocrine/Hematology History: Reports: Hx Thyroid Disease - radiation induced hypothyrodism Denies: Hx Anticoagulant Therapy, Hx Blood Disorders, Hx Bone Marrow Disease , Hx Diabetes, Hx Systemic Lupus Erythematosus, Hx Sickle Cell Disease, Hx Anemia, Hx Unexplained Bleeding, Other Endocrine/Hematological Disorders Cardiovascular History: Reports: Hx Hypercholesterolemia - previously, Hx Hypertension, Other Cardiovascular Problems/Disorders - Raynauds disease of heart, hands and feet, severe Denies: Hx Aneurysm, Hx Angina, Hx Angioplasty, Hx Auto Implanted Cardiovert Defib, Hx Cardiac Arrest, Hx Cardiomegaly, Hx Congenital Heart Disease, Hx Congestive Heart Failure, Hx Coronary Artery Disease, Hx Deep Vein Thrombosis, Hx Embolism, Hx Hypotension, Hx Pacemaker/ICD, Hx Peripheral Vascular Disease, Hx Rheumatic Fever, Hx Syncope, Hx Valvular Heart Disease Respiratory History: Reports: Hx Chronic Bronchitis, Hx Chronic Obstructive Pulmonary Disease (COPD) - 2L O2 at all times [employer], Hx Pneumonia Denies: Hx Asthma, Hx Cystic Fibrosis, Hx Lung Cancer, Hx Pleural Effusion, Hx Pulmonary Edema, Hx Pulmonary Embolism, Hx Sleep Apnea Comment Only: Other Respiratory Problems/Disorders - copd GI History: Reports: Hx Gastrointestinal Bleed - 2007, Hx Obstructive Bowel - "twisted intestine", Other GI Disorders - colitis Denies: Hx Cirrhosis, Hx Crohn's Disease, Hx Diverticulosis, Hx Gall Bladder Disease, Hx Gastroesophageal Reflux Disease, Hx Hiatal Hernia, Hx Irritable Bowel, Hx Jaundice, Hx Ileostomy, Hx Pyloric Stenosis, Hx Ulcer History: Denies: Hx Acute Renal Failure, Hx Benign Prostatic Hyperplasia, Hx Chronic Renal Failure, Hx Dialysis, Hx Kidney Infection, Hx Kidney Stones, Hx Renal Disease, Other Problems/Disorders Musculoskeletal History: Denies: Hx Arthritis, Hx Rheumatoid Arthritis, Hx Back Problems, Hx Bursitis , Hx Congenital Bone Abnormalities, Hx Fibromyalgia, Hx Gout, Hx Orthopedic Injury, Hx Osteoporosis, Hx Scoliosis, Hx Tendonitis, Other Musculoskeletal History Sensory History: Reports: Hx Cataracts, Hx Contacts or Glasses Denies: Hx Eye Injury, Hx Eye Prosthesis, Hx Legally Blind, Hx Macular Degeneration, Hx Vision Problem, Hx Deafness, Hx Hearing Aid, Hx Hearing Problem , Other Sensory Impairments Opthamlomology History: Reports: Hx Cataracts, Hx Contacts or Glasses Denies: Hx Eye Injury, Hx Eye Prosthesis, Hx Legally Blind, Hx Macular Degeneration, Hx Vision Problem, Other Sensory Impairments Neurological History: Reports: Hx Seizures - 2007 febrile Denies: Hx Dementia, Hx Developmental Delay, Hx Headaches, Hx Migraine, Hx Nerve Disease, Hx Spinal Cord Injury, Hx Transient Ischemic Attacks (TIA), Other Neuro Impairments/Disorders Psychiatric History: Reports: Hx Anxiety - when SOB Denies: Hx Attention Deficit Hyperactivity Disorder, Hx Eating Disorder, Hx Depression, Hx Panic Disorder, Hx Post Traumatic Stress Disorder, Hx Inpatient Treatment, Hx Community Mental Health Tx, Hx Schizophrenia, Hx Bipolar Disorder , Hx Suicide Attempt, Hx of Violent Episodes Against Others, Hx Substance Abuse , Other Psychiatric Issues/Disorders - Cancer History Cancer Type, Location and Year: . neoplasm malignant left mouth/tongue salivary gland 2011 Hx Chemotherapy: No Hx Radiation Therapy: Yes - 2013 Hx Palliative Cancer Treatment: No - Surgical History Surgery Procedure, Year, and Place: 08/27/13 - BIOPSY UNDER TONGUE [id number], salivary gland and lymph node removed from left neck. [facility] Hx Anesthesia Reactions: No Infectious Disease History: No Infectious Disease History: Denies: Hx Hepatitis, Hx Human Immunodeficiency Virus (HIV), Hx Tuberculosis , History Other Infectious Disease, Traveled Outside the [place] in Last 30 Days - Family History Known Family History: Negative: Hypertension - Social History Alcohol Use: Daily Alcohol Amount: 2-3 GLASSES/DAY Hx Substance Use: No Substance Use Type: Reports: None Hx Tobacco Use: Yes Smoking Status (MU): Former Smoker Type: Cigarettes Amount Used/How Often: 45 years Length of Time of Smoking/Using Tobacco: 07/30/2011 Have You Smoked in the Last Year: No Review of Systems Positive: Chills. Negative: Fever Negative: Chest Pain Negative: Cough Gastrointestinal: Negative - constipation, blood in stool Positive: Abdominal Pain. Negative: Diarrhea, Nausea Negative: dysuria All Other Systems Reviewed And Are Negative: Yes Physical Exam - Summary Physical Exam Summary: General: moderate/severe pain distress Skin: warm, color reflects adequate perfusion, dry Head: normal Eyes: EOMI, BULMARO ENT: normal Neck: supple, nontender Respiratory: CTA, breath sounds present Cardiovascular: RRR Abdomen: tenderness in RLQ Bowel: hypoactive bowel sounds Musculoskeletal: normal, strength/ROM intact Neurological: normal, sensory/motor intact, A&O x3 Psychological: affect/mood appropriate Triage Information Reviewed: Yes Vital Signs On Initial Exam: Initial Vitals Temp Pulse Resp BP Pulse Ox 98.5 F 81 22 139/82 100 07/22/17 13:19 07/22/17 13:19 07/22/17 13:19 07/22/17 13:19 07/22/17 13:19 Vital Signs Reviewed: Yes - Carolyn Coma Scale Coma Scale Total: 15 Diagnostics - Vital Signs Vital Signs Temp Pulse Resp BP Pulse Ox 07/22/17 13:19 98.5 F 81 22 139/82 100 - Laboratory Lab Results: Lab Results 07/22/17 07/22/17 07/22/17 Range/Units 14:15 14:15 14:15 WBC (3.5-10.8) 10^3/ul RBC (4.0-5.4) 10^6/ul Hgb (12.0-16.0) g/dl Hct (35-47) % MCV (80-97) fL MCH (27-31) pg MCHC (31-36) g/dl RDW (10.5-15) % Plt Count (150-450) 10^3/ul MPV (7.4-10.4) um3 Neut % (Auto) (38-83) % Lymph % (Auto) (25-47) % [place] % (Auto) (1-9) % Eos % (Auto) (0-6) % Baso % (Auto) (0-2) % Absolute Neuts (auto) (1.5-7.7) 10^3/ul Absolute Lymphs (auto) (1.0-4.8) 10^3/ul Absolute Monos (auto) (0-0.8) 10^3/ul Absolute Eos (auto) (0-0.6) 10^3/ul Absolute Basos (auto) (0-0.2) 10^3/ul Absolute Nucleated RBC 10^3/ul Nucleated RBC % INR (Anticoag Therapy) 1.05 H (0.77-1.02) APTT 32.3 (26.0-36.3) seconds Sodium 128 L (133-145) mmol/L Potassium 3.7 (3.5-5.0) mmol/L Chloride 91 L (101-111) mmol/L Carbon Dioxide 32 (22-32) mmol/L Anion Gap 5 (2-11) mmol/L BUN 5 L (6-24) mg/dL Creatinine 0.42 L (0.51-0.95) mg/dL Est GFR ( Amer) 191.8 (>60) Est GFR (Non-Af Amer) 149.2 (>60) BUN/Creatinine Ratio 11.9 (8-20) Glucose 94 (70-100) mg/dL Lactic Acid (0.5-2.0) mmol/L Calcium 8.9 (8.6-10.3) mg/dL Total Bilirubin 0.80 (0.2-1.0) mg/dL AST 22 (13-39) U/L ALT 9 (7-52) U/L Alkaline Phosphatase 163 H (34-104) U/L C-Reactive Protein 16.37 H (< 5.00) mg/L B-Natriuretic Peptide 168 H ( - 100) pg/mL Total Protein 6.9 (6.4-8.9) g/dL Albumin 3.6 (3.2-5.2) g/dL Globulin 3.3 (2-4) g/dL Albumin/Globulin Ratio 1.1 (1-3) Lipase < 10 L (11.0-82.0) U/L Urine Color Urine Appearance Urine pH (5-9) Ur Specific Check (1.010-1.030) Urine Protein (Negative) Urine Ketones (Negative) Urine Blood (Negative) Urine Nitrate (Negative) Urine Bilirubin (Negative) Urine Urobilinogen (Negative) Ur Leukocyte Esterase (Negative) Urine Glucose (Negative) 07/22/17 07/22/17 07/22/17 Range/Units 14:15 14:15 16:15 WBC 5.8 (3.5-10.8) 10^3/ul RBC 3.99 L (4.0-5.4) 10^6/ul Hgb 13.1 (12.0-16.0) g/dl Hct 39 (35-47) % MCV 99 H (80-97) fL MCH 33 H (27-31) pg MCHC 33 (31-36) g/dl RDW 16 H (10.5-15) % Plt Count 139 L (150-450) 10^3/ul MPV 7 L (7.4-10.4) um3 Neut % (Auto) 76.1 (38-83) % Lymph % (Auto) 9.2 L (25-47) % [place] % (Auto) 13.7 H (1-9) % Eos % (Auto) 0.7 (0-6) % Baso % (Auto) 0.3 (0-2) % Absolute Neuts (auto) 4.4 (1.5-7.7) 10^3/ul Absolute Lymphs (auto) 0.5 L (1.0-4.8) 10^3/ul Absolute Monos (auto) 0.8 (0-0.8) 10^3/ul Absolute Eos (auto) 0 (0-0.6) 10^3/ul Absolute Basos (auto) 0 (0-0.2) 10^3/ul Absolute Nucleated RBC 0 10^3/ul Nucleated RBC % 0 INR (Anticoag Therapy) (0.77-1.02) APTT (26.0-36.3) seconds Sodium (133-145) mmol/L Potassium (3.5-5.0) mmol/L Chloride (101-111) mmol/L Carbon Dioxide (22-32) mmol/L Anion Gap (2-11) mmol/L BUN (6-24) mg/dL Creatinine (0.51-0.95) mg/dL Est GFR ( Amer) (>60) Est GFR (Non-Af Amer) (>60) BUN/Creatinine Ratio (8-20) Glucose (70-100) mg/dL Lactic Acid 1.2 (0.5-2.0) mmol/L Calcium (8.6-10.3) mg/dL Total Bilirubin (0.2-1.0) mg/dL AST (13-39) U/L ALT (7-52) U/L Alkaline Phosphatase (34-104) U/L C-Reactive Protein (< 5.00) mg/L B-Natriuretic Peptide ( - 100) pg/mL Total Protein (6.4-8.9) g/dL Albumin (3.2-5.2) g/dL Globulin (2-4) g/dL Albumin/Globulin Ratio (1-3) Lipase (11.0-82.0) U/L Urine Color Straw Urine Appearance Clear Urine pH 7.0 (5-9) Ur Specific Check 1.003 L (1.010-1.030) Urine Protein Negative (Negative) Urine Ketones Negative (Negative) Urine Blood Negative (Negative) Urine Nitrate Negative (Negative) Urine Bilirubin Negative (Negative) Urine Urobilinogen Negative (Negative) Ur Leukocyte Esterase Negative (Negative) Urine Glucose Negative (Negative) Result Diagrams: 07/22/17 14:15 07/22/17 14:15 Lab Statement: Any lab studies that have been ordered have been reviewed, and results considered in the medical decision making process. - CT CT Abd/Pel CT Interpretation: Positive (See Comments) - IMPRESSION: Right pleural effusion of [id number] size. Appendix is not visualized however no evidence of appendicitis is noted. There is a 5.2 x 5.2 x 4.4 cm hyperdense mass in the left gluteus muscle. The possibility of active hemorrhage with contrast extravasation cannot be excluded. ED physician has reviewed this radiology report. CT Interpretation Completed By: Radiologist - Additional Comments Diagnostic Additional Comments: US Gallbladder reveals, per radiologist, IMPRESSION: No evidence of cholelithiasis or biliary duct dilatation is noted. ED Physician has reviewed this radiology report. Abdominal Pain Fem Course/Dx - Course Course Of Treatment: Bloodwork Obtained. Urinalysis Obtained. Medications reviewed. Allergies noted. In the ED course the patient was given Zofran, Dilaudid. OVERALL, THE PAIN IMPROVED IN THE ED WITH IV PAIN MEDICATION. DISCUSSED RESULTS TO INCLUDE THE LEFT GLUTEAL HEMATOMA WITH THE PATIENT AND HER . DISCUSSED WITH DR MANRIQUEZ, SURGERY. HE REVIEWED THE LABS AND CT. AT THIS TIME, THIS DOES NOT APPEAR TO BE APPENDICITIS. THIS WAS ALSO DISCUSSED WITH THE PATIENT AND HER . WE DISCUSSED ADMISSION FOR PAIN CONTROL AND OBSERVATION. THE PATIENT DECLINES ADMISSION AT THIS TIME. SHE WILL RETURN TO THE ED IF WORSE OR ANY CONCERNS. - Diagnoses Provider Diagnoses: RLQ abdominal pain, Hematoma Discharge - Discharge Plan Condition: Stable Disposition: HOME Patient Education Materials: Acute Abdominal Pain (ED), Hematoma (ED) Referrals: Daxa James MD [Primary Care Provider] - Additional Instructions: FOLLOW UP WITH YOUR DOCTOR. RETURN TO THE EMERGENCY DEPARTMENT FOR ANY WORSENING OF YOUR CONDITION; PAIN, FEVER, YOU FEEL ILL, YOU FEEL LIKE PASSING OUT OR QUESTIONS OR CONCERNS. The documentation as recorded by the Keenan wilson Tecjoon accurately reflects the service I personally performed and the decisions made by me, Jorge Sen MD.
[2017-07-22 19:52] VITALS: BP 138/69
== END 2017-07-22 19:50 | disposition home or self-care (01) ==
LOC: ED 13:16
DX: R10.31 Right lower quadrant pain (principal); M79.81 Nontraumatic hematoma of soft tissue; Z87.891 Personal history of nicotine dependence; Z88.3 Allergy status to other anti-infective agents; Z88.8 Allergy status to other drugs, medicaments and biological substances
CPT/HCPCS: 36415; 74177; 76705; 80053; 81003; 83605; 83690; 83880; 85025; 85610; 85730; 86140; 96361; 96374; 96375; 96376; 99282; J1170; J2405; Q9967

== ENCOUNTER 2017-11-24 11:33 | Inpatient (IN) | payer MEDICARE ==
--- OUTSIDE RECORDS SUMMARY | 2017-11-24 11:41 | XMS REPORT ---
:1945 External Reference #:[id number] Author Organization [facility] Address [address] [place] [address] Phone [phone] Care Team Providers Name Role Phone Daxa James M.D. Primary Care Physician Unavailable Payers Type Date Identification Numbers Payment Provider Subscriber Medicare Primary Policy Number: [id number] Medicare-[facility] Govn SRVS Trina Keen PayID: [id number] [address] [place] [address] Medigap Part B Policy Number: [id number] Aar Trina Keen PayID: [id number] 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 Family History Date Family Member(s) Problem(s) Comments General Diabetes General Heart Attack Social History Type Date Description Comments Occupation Retired Cigarette Use Former Cigarette Smoker 1/2 Pack Daily Cigarette Use for 30 yrs Cigars Never Smoked Cigars Pipe Never Smoked A Pipe Smokeless Tobacco Never Used Smokeless Tobacco ETOH Use Currently occasionally consumes alcohol Smoking Patient is a former smoker Allergies, Adverse Reactions, Alerts Date Description Reaction Status Severity Comments 08/21/2013 Lamotrigine active 08/21/2013 Lorazepam active 08/21/2013 Nifedipine active 08/21/2013 Topiramate active 03/24/2016 Levaquin active 03/24/2016 Morphine active Medications Medication Date Status Form Strength Qnty SIG Indications Ordering Provider Symbicort Active Aerosol 160-4.5mc 2 puffs 2x a Cotton, /0000 g/Act day with Daxa spacer M.D. Levothyroxine Active Tablets 50mcg 1 by mouth Cotton, Sodium / every day Daxa M.D. Atorvastatin Active Tablets 10mg 1 by mouth Cotton, Calcium /0000 every at Daxa bedtime M.D. Valsartan Active Tablets 40mg 1 by mouth Cotton, /0000 every day Daxa M.D. Ipratropium Active Solution 0.5-2.5(3 inhale 3 Cotton, [place] / )mg/3ML milliliters Daxa rol Sulfate via M.D. nebulizer 4 times per day for chronic obstructive lung disease Combivent Active Aerosol 20-100mcg 1 puff 4 Cotton, Respimat / /Act times daily Daxa M.D. Alprazolam Active Tablets 0.5mg Unknown / Pilocarpine Active Tablets 5mg Unknown HCL / Sertraline HCL Active Tablets 50mg Unknown Metoprolol Active Tablets ER 50mg Unknown Succinate ER / 24HR Aspirin 81 Low Active Chewtabs 81mg daily Unknown Dose /0000 Keflex 11/11 Hx Capsules 500mg 28cap 1 by mouth s times a day Leila Doss MD 03/24 Nystatin 03/17 Hx Suspension 043105Niv 140ml 1 teaspoon t/ML Aureliano Kearney, - swallow 4 09/22 times a day for 7 days Sucralfate 06/12 Hx Suspension 1GM/10ML 500ml 1 teaspoon Aureliano Kearney - spit as 03/17 needed for mouth pain Fentanyl 01/28 Hx Patches 25mcg/HR 10uni 1 patch 72HR ts every 3 days Leila Doss MD 03/11 Cephalexin 10/30 Hx Tablets 500mg 40tab 1 by mouth 4 s times a day Leila Doss MD 01/27 Nystatin 09/24 Hx Suspension 977392Nki 150ml 5 ml po t/ML swish and Aleta Kearney, - swallow qid 01/27 for 1 week Percocet 09/24 Hx Tablets 5-325mg 40tab 1 tabs by s mouth every Aleta Kearney, - 6 hours as 10/30 needed for pain Tegaderm CHG 09/24 Hx Misc (Dressing 3boxe Apply to Kiran Carlos Dressing/-09/30 ) s wound as Zoran "X3-38" - Dean junior 01/27 Telpha 09/24 Hx 2In. X 3 2boxe Apply to Kiran Carlos Dressing In. s wound as Zoran junior M.D. 01/27 Peridex 08/27 Hx Solution 0.12% 473ml 1 tablespoon Kiran Carlos tid Zoran Dee M.D. 01/27 Clotrimazole 08/21 Hx Lozenges 10mg 50uni 1 lozenge 5 ts times a day Aleta Kearney - 03/11 Benicar Hx Kei, /0000 Lena Moran - 01/27 Zonisamide Hx 50mg 1 po qd x Kei, / 3wks, then Lena Moran - 25mg for 09/22 3weeks, discontinue Aspirin Ec Hx 81mg 1 po qd Kei, / Lena Moran - 03/24 Ipratropium Hx Solution 0.5-2.5(3 120un inhale 3 Choudhury, [place] /0000 )mg/3ML its milliliters Lena Moran rol Sulfate - via 03/17 nebulizer times per day for chronic obstructive lung disease Ventolin HFA Hx Aerosol 108(90Bas 2unit 1-2 puffs Kei, /0000 e) s every 4 Lena Moran - mcg/Act hours as 03/17 needed for shortness of breathe use with spacer Ipratropium Hx Solution 0.03% as directed Kei, [place] /0000 Lena Moran - 03/17 Prednisone 00/00 Hx Unknown /0000 - 10/01 Oxycodone/ 00 Hx 5-325mg Unknown Apap /0000 - 10/30 Multivitamins 00/ Hx Capsules 1 by mouth Self /0000 every day - 03/24 Boost Plus Hx Liquid po qd Kei, /0000 Lena Moran - 03/24 Oxycodone HCL 00 Hx Tablets 20mg 30tab 1 po by Mauricio, / s mouth tid as Eloy Moran - needed pain 03/11 Magic Mouth 00 Hx 2 tsp bid Mauricio, Wash /0000 Eloy Moran - 09/22 Fentanyl 00 Hx Patches 25mcg/HR 1 patch Martínez, / 72HR every 72 Eloy Moran - hours 03/17 Levothyroxine Hx Tablets 50mcg 1 by mouth Kei, Sodium / every day Lena Moran - 03/24 Symbicort Hx bid Kei, / Lena Moran - 03/24 BP Medication 00 Hx 40mg 1 po qd Cotton, /0000 Daxa Dee M.D. 03/24 Prednisone 0000 Hx Tablets 5mg 1 by mouth Cotton, /0000 every day Daxa Dee M.D. 11/07 Immunizations CPT Code Status Date Vaccine Lot # [id number] Given Unknown Prevnar 13 For Intramuscular Use 27581 Given Unknown Influenza Virus Vaccine, 3 Years Of Age And Above, Intramuscular Vital Signs Date Vital Result Comment 09/28/2016 BP Systolic 171 mmHg BP Diastolic 81 mmHg Heart Rate 85 /min Weight 111.00 lb Weight in kg's 50.350 Height 61 inches 5'1" Height in cm's 154.9 cm BMI (Body Mass Index) 21.0 kg/m2 03/24/2016 BP Systolic 171 mmHg BP Diastolic 78 mmHg Heart Rate 98 /min Respiratory Rate 17 /min Weight 111.00 lb Weight in kg's 50.350 Height 16 inches 1'4" Height in cm's 40.6 cm BMI (Body Mass Index) 304.8 kg/m2 09/23/2015 BP Systolic 177 mmHg BP Diastolic 80 mmHg Heart Rate 95 /min Respiratory Rate 16 /min Weight 111.00 lb Weight in kg's 50.350 Height 16 inches 1'4" Height in cm's 40.6 cm BMI (Body Mass Index) 304.8 kg/m2 03/17/2015 BP Systolic 174 mmHg BP Diastolic 101 mmHg Heart Rate 106 /min Respiratory Rate 17 /min Weight 82.00 lb Weight in kg's 37.195 Height 16 inches 1'4" Height in cm's 40.6 cm BMI (Body Mass Index) 225.2 kg/m2 09/16/2014 BP Systolic 180 mmHg BP Diastolic 89 mmHg Heart Rate 95 /min Respiratory Rate 17 /min Weight 82.00 lb Weight in kg's 37.195 Height 16 inches 1'4" Height in cm's 40.6 cm BMI (Body Mass Index) 225.2 kg/m2 06/12/2014 BP Systolic 183 mmHg BP Diastolic 94 mmHg Heart Rate 77 /min Respiratory Rate 17 /min Weight 77.00 lb Weight in kg's 34.927 Height 16 inches 1'4" Height in cm's 40.6 cm BMI (Body Mass Index) 211.4 kg/m2 03/12/2014 BP Systolic 157 mmHg BP Diastolic 81 mmHg Heart Rate 74 /min Respiratory Rate 16 /min Weight 77.00 lb Weight in kg's 34.927 Height 16 inches 1'4" Height in cm's 40.6 cm BMI (Body Mass Index) 211.4 kg/m2 01/28/2014 BP Systolic 135 mmHg BP Diastolic 70 mmHg Heart Rate 85 /min Respiratory Rate 16 /min Weight 80.00 lb Weight in kg's 36.288 Height 16 inches 1'4" Height in cm's 40.6 cm BMI (Body Mass Index) 219.7 kg/m2 11/13/2013 BP Systolic 177 mmHg BP Diastolic 80 mmHg Heart Rate 102 /min Respiratory Rate 16 /min Weight 101.00 lb Weight in kg's 45.814 Height 16 inches 1'4" Height in cm's 40.6 cm BMI (Body Mass Index) 277.4 kg/m2 10/30/2013 BP Systolic 137 mmHg BP Diastolic 75 mmHg Heart Rate 101 /min Respiratory Rate 16 /min Weight 86.00 lb Weight in kg's 39.010 Height 16 inches 1'4" Height in cm's 40.6 cm BMI (Body Mass Index) 236.2 kg/m2 10/16/2013 BP Systolic 123 mmHg BP Diastolic 60 mmHg Heart Rate 94 /min Respiratory Rate 17 /min Weight 86.00 lb Weight in kg's 39.010 Height 16 inches 1'4" Height in cm's 40.6 cm BMI (Body Mass Index) 236.2 kg/m2 10/13/2013 BP Systolic 125 mmHg BP Diastolic 63 mmHg Heart Rate 95 /min Respiratory Rate 16 /min Weight 86.00 lb Weight in kg's 39.010 Height 16 inches 1'4" Height in cm's 40.6 cm BMI (Body Mass Index) 236.2 kg/m2 10/01/2013 BP Systolic 138 mmHg BP Diastolic 76 mmHg Heart Rate 82 /min Respiratory Rate 16 /min Weight 86.00 lb Weight in kg's 39.010 Height 62 inches 5'2" Height in cm's 157.5 cm BMI (Body Mass Index) 15.7 kg/m2 09/24/2013 BP Systolic 165 mmHg BP Diastolic 77 mmHg Heart Rate 91 /min Respiratory Rate 17 /min Weight 86.00 lb Weight in kg's 39.010 Height 62 inches 5'2" Height in cm's 157.5 cm BMI (Body Mass Index) 15.7 kg/m2 09/10/2013 BP Systolic 139 mmHg BP Diastolic 78 mmHg Heart Rate 83 /min Respiratory Rate 17 /min Weight 86.00 lb Weight in kg's 39.010 Height 62 inches 5'2" Height in cm's 157.5 cm BMI (Body Mass Index) 15.7 kg/m2 08/27/2013 BP Systolic 130 mmHg BP Diastolic 84 mmHg Heart Rate 94 /min Respiratory Rate 16 /min Weight 86.00 lb Weight in kg's 39.010 Height 62 inches 5'2" Height in cm's 157.5 cm BMI (Body Mass Index) 15.7 kg/m2 08/21/2013 BP Systolic 135 mmHg BP Diastolic 78 mmHg Heart Rate 100 /min Respiratory Rate 17 /min Weight 86.38 lb Weight in kg's 39.180 Height 62 inches 5'2" Height in cm's 157.5 cm BMI (Body Mass Index) 15.8 kg/m2 Results Test Date Test Result H/L Range Note Comp Metabolic Panel 10/09/2013 Sodium 131 mmol/L Low 133-145 Potassium 4.0 mmol/L 3.7-5.6 Chloride 96 mmol/L Low 101-111 Co2 Carbon Dioxide 29 mmol/L 22-32 Anion Gap 6 mmol/L 2-11 Glucose 83 mg/dL 70-100 Blood Urea Nitrogen 13 mg/dL 6-24 Creatinine 0.67 mg/dL 0.51-0.95 BUN/Creatinine Ratio 19.4 8-20 Calcium 9.1 mg/dL 8.6-10.3 Total Protein 6.9 g/dL 6.4-8.9 Albumin 4.1 g/dL 3.2-5.2 Globulin 2.8 g/dL 2-4 Albumin/Globulin Ratio 1.5 1-3 Total Bilirubin 0.50 mg/dL 0.2-1.0 Alkaline Phosphatase 63 U/L 34-104 Alt 15 U/L 7-52 Ast 22 U/L 13-39 Egfr Non- 88.1 >60 Egfr 113.3 >60 1 CBC Auto Diff 10/09/2013 White Blood Count 5.5 10^3/uL 4.8-10.8 Red Blood Count 3.58 10^6/uL Low 4.0-5.4 Hemoglobin 13.3 g/dL 12.0-16.0 Hematocrit 38 % 35-47 Mean Corpuscular Volume 106 fL High 80-97 Mean Corpuscular Hemoglobin 37 pg High 27-31 Mean Corpuscular HGB Conc 35 g/dL 31-36 Red Cell Distribution Width 11 % 10.5-15 Platelet Count 197 10^3/uL 150-450 Mean Platelet Volume 8 um3 7.4-10.4 Abs Neutrophils 4.1 10^3/uL 1.5-7.7 Abs Lymphocytes 0.7 10^3/uL Low 1.0-4.8 Abs Monocytes 0.7 10^3/uL 0-0.8 Abs Eosinophils 0.1 10^3/uL 0-0.6 Abs Basophils 0 10^3/uL 0-0.2 Abs Nucleated RBC 0.01 10^3/uL Granulocyte % 74.5 % 38-83 Lymphocyte % 11.8 % Low 25-47 Monocyte % 11.9 % High 1-9 Eosinophil % 1.2 % 0-6 Basophil % 0.6 % 0-2 Nucleated Red Blood Cells % 0.1 Laboratory test finding 08/27/2013 Surgical Pathology RUN DATE: 09/02/ < SEE 2 NOTE> 1 Because ethnic data is not always readily available, this report includes an eGFR for both -Americans and non- Americans. The National Kidney Disease Education Program (NKDEP) does not endorse the use of the MDRD equation for patients that are not between the ages of 18 and 70, are , have extremes of body size, muscle mass, or nutritional status, or are non- or non-. According to the National Kidney Foundation, irrespective of diagnosis, the stage of the disease is based on the level of kidney function: Stage Description GFR(mL/min/1.73 m(2)) 1 Kidney damage with normal or decreased GFR 90 2 Kidney damage with mild decrease in GFR 60-89 3 Moderate decrease in GFR 30-59 4 Severe decrease in GFR 15-29 5 Kidney failure <15 (or dialysis) 2 RUN DATE: 09/02/13 [facility] LAB LIVE PAGE 1 RUN TIME: [address] [place] [id number] Specimen Inquiry Name: TRINA KEEN : [address]: William Kearney MD Acct: [id number] Unit: [id number] AGE: 68 Location: [facility] Re08/27/13 SEX: F Status: REG REF SPEC: [id number] OTONIEL: 08/27/13-[address]: William Kearney MD REQ: [id number] RECD: 08/27/138651 STATUS: SOUT _ ORDERED: MIGUEL, S-100, CARCINOEMBRO AG, P63 IMMUNO STAI, P16 STAIN, LEVEL IV, Cytokeratin 5/6 Immunohistochemical stain for P16 with appropriate controls was performed and is negative. Addendum Signed (signature on file) Luis Chamorro MD 1500 FINAL DIAGNOSIS Oral cavity, floor of mouth, biopsy: Poorly differentiated invasive squamous carcinoma (see comment). COMMENTS: The biopsy demonstrates superficial oral mucosa with fragments of underlying apparent minor salivary gland tissue including mucinous acini as well as small ducts. Intimately associated with this minor salivary gland tissue is a population of malignant infiltrating epithelial cores with moderate to severe nuclear pleomorphism, high grade nuclei with visible nucleoli and marked desmoplastic response. The tumor appears to be intimately associated with gland and possibly extending along the ducts. The tumor extends to the surface of the mucosa. The following immunohistochemical stain were performed with appropriate controls: MIGUEL Positive. CK5/6 Strongly and diffusely positive. P63 Strongly nuclear staining. S100 Negative. CEA Negative. CONTINUED ON NEXT PAGE * ML=Testing performed at Main Lab DEPARTMENT OF PATHOLOGY, Formerly named [facility] [employer] [place], [place] [address] Luis Chamorro M.D. Director [facility] Permit #[id number] RUN DATE: 09/02/13 [facility] LAB LIVE PAGE 2 RUN TIME: 1500 Formerly named [facility] [employer] [place], [place] [address] Specimen Inquiry Patient: TRINA KEEN [id number] (Continued) SPECIMEN COMMENTS (Continued) The morphologic features and immuno histochemical staining pattern support the diagnosis of an invasive poorly differentiated squamous cell carcinoma. It is unclear whether this tumor arises from the mucosa and invades into an incidental underlying minor salivary gland or whether this represents a true minor salivary gland primary. An immunohistochemical stain for P16 to evaluate an HPV related etiology is pending and will be reported in an addendum. Histologic sections show squamous mucosa with minor salivary glands involved by a poorly differentiated malignant neoplasm composed of nests and cords of pleomorphic cells with enlarged nuclei showing variably prominent nucleoli and a moderate amount of eosinophilic cytoplasm with indistinct cellular borders. CLINICAL HISTORY No history given. GROSS DESCRIPTION The specimen is received in formalin labeled Trina Keen, Oral Lesion Floor of Mouth, and consists of a 0.7 x 0.5 x 0.3 cm. aggregate of multiple sneed-brown irregular soft tissue fragments. Submitted entirely, one cassette. Signed (signature on file) Luis Chamorro MD 1344 END OF REPORT * ML=Testing performed at Main Lab DEPARTMENT OF PATHOLOGY, [address] [place] [address] Luis Chamorro M.D. Director [facility] Permit #[id number] Procedures Date CPT Code Description Status 11/07/2017 19150 Fiberoptic Laryngoscopy Completed 03/17/2015 80311 Fiberoptic Laryngoscopy Completed 09/12/2013 47484 Excision Lesion Of Floor Of Mouth Completed 09/12/2013 41895 Excision Lesion Of Floor Of Mouth Completed 09/12/2013 44561 Modified Radical Neck Dissection Completed 09/12/2013 25849 Modified Radical Neck Dissection Completed 09/12/2013 70425 Tracheostomy Completed 09/12/2013 52808 Tracheostomy Completed 09/12/2013 63648 Split Graft Completed 08/27/2013 48247 Biopsy Floor Of Mouth Completed Encounters Type Date Location Provider CPT E/M Dx Office Visit 11/07/2017 3:00p Eduardo,After 07/30/07 [place] [address] C04.1 R49.0 Office Visit 09/28/2016 11:00a Eduardo,After 07/30/07 [place] [address] C04.1 Office Visit 03/24/2016 10:00a Eduardo,After 07/30/07 [place] [address] C04.1 Office Visit 09/23/2015 9:45a Eduardo,After 07/30/07 [place] [address] C04.1 Office Visit 03/17/2015 10:15a Eduardo,After 07/30/07 [place] [address] 144.1 112.0 529.6 Office Visit 09/16/2014 10:15a Eduardo,After 07/30/07 [place] [address] 144.1 Office Visit 06/12/2014 10:15a Eduardo,After 07/30/07 [place] [address] 144.1 Office Visit 03/12/2014 10:30a Eduardo,After 07/30/07 [place] [address] 144.1 Office Visit 01/28/2014 10:45a Eduardo,After 07/30/07 [place] [address] 144.1 Office Visit 12/18/2013 11:30a Axson,After 07/30/07 [place] [address] 144.1 Office Visit 10/13/2013 11:00a Axson,After 07/30/07 [place] [address] 145.9 Office Visit 09/10/2013 4:00p Axson,After 07/30/07 [place] [address] 145.9 Office Visit 08/21/2013 1:45p Axson,After 07/30/07 [place] [address] 235.0 112.0 Plan of Care No Information Available
--- OUTSIDE RECORDS SUMMARY | 2017-11-24 11:43 | XMS REPORT ---
:1945 External Reference #:[id number] Author Organization [facility] Address [address] [address] Phone [phone] Care Team Providers Name Role Phone Daxa James MD Primary Care Physician Unavailable Payers Type Date Identification Numbers Payment Provider Subscriber Medicare Primary Effective: Policy Number: [id number] Medicare Trina Keen 2012 PayID: [id number] [address] [place] [address] [facility] Policy Number: [id number] [facility] Trina Keen PayID: [id number] [address] [place] [address] Problems Date Description Provider Status Onset: 11/18/2013 Carcinoma in situ of lip, oral Alan Ellison, Active cavity and pharynx Dean,FACP Onset: 01/24/2013 Leukopenia Lena Choudhury M.D. Active Onset: 01/24/2013 Chronic obstructive lung disease Lena Choudhury M.D. Active Onset: 01/24/2013 Coronary arteriosclerosis Lena Choudhury M.D. Active Onset: 02/14/2016 Chronic obstructive pulmonary Muna Castaneda MD Active disease w (acute) exacerbation Onset: 05/17/2016 Anxiety disorder Muna Castaneda MD Active Onset: 05/17/2016 Chronic respiratory failure Muna Castaneda MD Active Onset: 02/05/2014 Seizure Daxa James M.D. Inactive Inactive: 08/25/2016 Family History Date Family Member(s) Problem(s) Comments : (age 76 Father due to [place] emphysema Years) : (age 76 Mother due to Pneumonia mother was one of 13 Years) children - FHx diabetes, strokes and aneurysms : (age 43 First Sister due to Suicide alcoholic Years) First Sister Suicide Social History Type Date Description Comments Lives With Spouse ETOH Use Drinks 2 Alcoholic Beverages Per Day Smoking Patient is a former smoker quit 02/07 Allergies, Adverse Reactions, Alerts Date Description Reaction Status Severity Comments 06/19/2012 Lamotrigine perkins-janes active 01/24/2013 Lorazepam agitation, when mixed with active Moderate to Severe Morphine 01/24/2013 Nifedipine teeth became loose active Moderate to Severe 01/24/2013 Topiramate racing heart, fatigue , active Moderate to Severe tight muscles 06/23/2015 Levaquin achilles tendonitis active 10/12/2015 Morphine active 05/30/2016 Bupropion Rash active 03/27/2017 Doxycycline stomach pain active Medications Medication Date Status Form Strength Qnty SIG Indications Ordering Provider Oxygen 10/29 Active Misc 1unit please R09.02 Muna /2018 s use o2 at MD Leonel 2l/min during exertion, pls provide pt with light weight portable o2 concentra tor Valsartan 09/26 Active Tablets 80mg 45tab 1 and 07/31 I10 s by mouth Cotton, every day M.D. Sertraline HCL 03/27 Active Tablets 50mg 90tab 1 by F41.9 s mouth Cotton, every day M.D. Alprazolam 02/22 Active Tablets 0.5mg 120ta 1 by F41.9 Daxa bs mouth Cotton, every 4-6 M.D. hours as needed for anxiety Metoprolol 07/10 Active Tablets ER 50mg 135ta and 07/31 R00.2 Daxa Succinate ER 24HR bs by mouth Cotton, every day M.D. Atorvastatin 10/26 Active Tablets 10mg 90tab take 1 s tablet by Cotton, mouth M.D. every day Synthroid 05/08 Active Tablets 50mcg 34tab take one s tablet by Cotton, mouth one M.D. time daily Combivent 07/28 Active Aerosol 20-100mcg 8gm inhale 2 Daxa Respimat /2013 puffs by Cotton, mouth 4 M.D. times daily for copd Symbicort 01/27 Active Aerosol 160-4.5mc 10.2u inhale 2 J44.9 g/Act nits puffs by Cotton, mouth two M.D. times daily for chronic obstructi ve lung disease Aspirin Adult Low [address] 81mg 90tab take one Daxa Strength /0000 s tablet by Cotton, mouth M.D. daily. Azithromycin 03/27 Hx Tablets 250mg 6tabs 2 tabs by R05 mouth on Cotton, - day 1; 1 M.D. 04/06 tab mouth every day on days 2-5 Doxycycline 02/22 Hx Tablets 100mg 20tab 1 tab by J44.1 Daxa Hyclate s mouth Cotton, - twice a M.D. 02/28 day 10 days Sertraline HCL 02/22 Hx Tablets 25mg 30tab 1/2 tab F41.9 s by mouth Cotton, - every day M.D. 03/27 for week, then whole tablet every Stiolto Respimat 08/01 Hx Aerosol 2.5-2.5mc 1 puff J44.9 g/Act daily MD Leonel - 08/25 Metoprolol 05/31 Hx Tablets ER 25mg 30tab 1 PO qd R00.2 Daxa Succinate ER 24HR s Jacob, - M.D. 07/10 Valsartan 05/30 Hx Tablets 80mg 30tab 1 by I10 s mouth Cotton, - every day M.D. 06/18 Metoprolol 05/30 Hx Tablets 50mg 30tab 1/2 tab R00.2 Daxa Tartrate s PO qd x 1 Cotton, - week then M.D. 05/31 whole tablet daily Oxygen 05/30 Hx Misc 2l/min at night Cotton, - M.D. 10/29 Azithromycin 05/17 Hx Tablets 250mg 30tab 1 by J44.1 Muna /2016 s mouth MD Leonel - every day 08/25 Alprazolam 10/19 Hx Tablets 0.25mg 120ta take 1 to F41.9 bs 2 tablets Cotton, - by mouth M.D. 02/22 two times daily as needed -- maximum daily dose of 4 per day Buspirone HCL 05/09 Hx Tablets 10mg 60tab 1 by s mouth Cotton, - once M.D. 07/28 daily 2-3 days, then twice daily (05/17/16 pt states that she stopped med d/t rash ) Valsartan 04/21 Hx Tablets 160mg 30tab 1 by I10 s mouth Cotton, - every day M.D. 05/30 Ciprofloxacin HCL 02/13 Hx Tablets 750mg 10tab 1 by Joseline1 s mouth MD Leonel - twice a Prednisone 02/13 Hx Tablets 5mg 90tab 1 tab by Torsten.1 s mouth MD Leonel - every day 05/18 morning (Not taking ) Cefuroxime Axetil 02/13 Hx Tablets 500mg 14tab 1 tab by s mouth MD Leonel - twice 05/30 daily PT Not Taking as Of 05/02/16 Prednisone 01/02 Hx Tablets 20mg 30tab 3 tabs s daily for MD Leonel - 3 days, 2 02/13 tabs daily for 3 days, 1 tab daily for 7 days, 1/2 tab for 14 days Zithromax Z-Tod 01/02 Hx Tablets 250mg 6tabs 2 tabs day#1, 1 MD Leonel - tab daily 02/10 for days Cephalexin 11/14 Hx Tablets 500mg one times - daily for 11/22 Valsartan 10/26 Hx Tablets 80mg 30tab 1 by I10 s mouth Cotton, - every day M.D. 10/26 Valsartan 10/26 Hx Tablets 40mg 45tab 1 and I10 s half by Cotton, - mouth M.D. 04/21 every Valsartan 08/24 Hx Tablets 40mg 30tab Take 1 I10 s Tablet By Cotton, - Mouth One M.D. 10/26 Daily Compression 07/13 Hx Misc 20-30mm 1Pair knee high R60.0 Daxa Stock HG - wear Cotton, - daily M.D. 10/10 Ipratropium 05/10 Hx Solution 0.5-2.5(3 90uni 1 vial in J44.9 Daxa [place]/Albuterol )mg/3ML ts nebulizer Cotton, Sulfate - three M.D. 06/18 times day as needed for asthma Zonisamide 02/24 Hx Capsules 25mg 90cap 3 tabs Constance Gong s every Jamal, - night M.D. 05/05 [id number], then 2 tabs every night x3 weeks, then 1 tab every night x3 weeks, then Stop Zonisamide 02/09 Hx Capsules 50mg 30cap 1 cap by Constance Gong s mouth Jamal, - every M.D. 05/05 Advair HFA 01/13 Hx Aerosol 115-21mcg 1unit use 2 496 /Act s inhalatio Cotton, - ns twice M.D. 01/14 Breo Ellipta 11/06 Hx Aerosol 100-25mcg 28uni 1 496 /Inh ts inhalatio Cotton, - n once M.D. 01/13 Advair Diskus 08/10 Hx Aerosol 250-50mcg 60uni 1 496 /Dose ts inhalatio Cotton, - n twice M.D. 11/06 Levothyroxine 08/10 Hx Tablets 50mcg 34tab 1 by Daxa Sodium s mouth Cotton, - every day M.D. 05/08 Levothyroxine 06/05 Hx Tablets 25mcg 45tab 1 and 07/31beth Sodium s by mouth Cotton, - every day M.D. 08/10 Oxycodone-Acetami 12/03 Hx Tablets 5-325mg 90tab 1 tabs po Lena sorensen s q8 hrs Kei, - prn pain M.D. 12/26 Cephalexin 11/03 Hx Capsules 500mg 21cap 1 by s mouth Kei, - four M.D. 12/03 times day for 10 days Mirtazapine 11/03 Hx Tablets 7.5mg 30tab take 1 311 s tablet by Kei, - mouth M.D. 12/03 nightly Ventolin HFA 11/03 Hx Aerosol 108(90Bas 18gm 2 puffs e) po q4hrs Kei, - mcg/Act prn M.D. 12/26 Cosyntropin 09/07 Hx Solution 0.25mg/ml 1ml 250mcg iv/im Kei, - once M.D. 11/03 Oxygen 09/03 Hx Misc discontin 496 ue oxygen Kei, - therapy. M.D. 06/05 Albuterol Sulfate 08/18 Hx Nebulizer (2.5mg/3M 100un 1 vial 496 L) 0.083% its via Kei, - nebulizer M.D. 06/05 4 times daily as needed Prednisone 08/18 Hx Tablets 10mg 20tab Take 2 496 s tablets x Kei, - 5 days, M.D. 09/03 then take 1 tablet x 5 days, then take 1/2 tablet x 5 days, then stop Azithromycin 08/08 Hx Tablets 250mg 6tabs two tabs 466.0 day one, Kei, - one daily M.D. 08/18 till Prednisone 08/08 Hx Tablets 10mg 20tab 4 tabs po 466.0 s days 1-2; Kei, - 3 tabs po M.D. 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 01/27 daily Levetiracetam 10/22 Hx Tablets 500mg 30tab 1 po qhs Constance Gong angi Berry - M.D. 05/14 Topiramate 08/23 Hx Tablets 25mg 240ta 1 bid for bs 1 week Anahi, - then 2 M.D. 10/22 bid for week then 3 bid for 1 wk then 4 bid Vimpat 08/21 Hx Tablets 50mg 180ta 1 bid for bs 2 wks Anahi, - then 2 M.D. 08/23 bid for wks then 3 bid Zonisamide 06/19 Hx Capsules 50mg 180ca 2 caps by Constance Gong ps luis Berry, - every M.D. 08/23 Lamotrigine 06/06 Hx Tablets 25mg 120ta 2-4 tabs Constance Gong bs by luis Berry, - every day M.D. 06/19 directed Benicar Hx Tablets 20mg 1 po qd Unknown /0000 - 12/03 Metoprolol Hx 25mg 90uni 1 po qd Unknown /0000 ts - 07/09 Aspirin Adult Low Hx Chewtabs 81mg 30uni 1 po qd Unknown Strength /0000 ts - 04/17 Spiriva Hx Capsules 18mcg 1 Unknown Handihaler /0000 inhalatio - n po qam 01/24 Ventolin HFA Hx Aerosol 108(90Bas 1unit 2 puffs Unknown /0000 e) mcg/ac s po q4hrs - prn 11/03 Combivent Hx Aerosol 18-103mcg 14.70 inhale 2 Daxa /0000 /Act 0gm puffs by Cotton, - mouth 4 M.D. 07/28 times per day for chronic obstructi ve lung disease Zonisamide Hx Capsules 50mg 60cap 2 caps by Constance Daniel. / s luis Berry, - every M.D. 06/10 directed Multi Complete Hx Capsules daily prn Unknown /0000 - 07/09 Ipratropium Hx Solution 0.5-2.5(3 90uni 1 vial in 496 Lena [place]/Albuterol /0000 )mg/3ML ts nebulizer Kiara Choudhury - three M.D. 08/18 times day as needed for asthma Nystatin Hx Suspension [id number] 16oz qid, Unknown / t/ML swish and - swallow 11/03 for days Chlorhexadine Hx Solution 0.12% 600ml rinse/spi Unknown Gluconate Oral /0000 t 10- ml Rinse - tid 11/03 Oxycodone/Acetami Hx Tablets 5-325mg 1 tabs po Unknown nophen /0000 q 6 hrs - prn pain 11/03 Oxycodone/Acetami Hx Tablets 5-325mg 90tab 1 tabs po Lena nophen /0000 s q8 hrs Kei, - prn pain M.D. 12/03 Oxycodone-Acetami Hx Tablets 10-325mg 120ta take 2 Unknown nophen /0000 bs tab by - mouth 12/26 every hours as needed Oxycodone HCL Hx Tablets 10mg 21tab 1 tablet Unknown / s by mouth - every 6 07/30 hours needed - Dr. Martínez Fentanyl Patch Hx Unknown /0000 - 08/10 Doxycycline Hx Capsules 100mg one Unknown Hyclate tablet - twice 06/08 daily 10 days. Levofloxacin Hx Tablets 750mg one Unknown /0000 tablet - daily for 06/23 10 days. Prednisone 00 Hx Tablets 25mg as Unknown /0000 directed - 07/09 Prednisone 00 Hx Tablets 10mg 10 mg. Unknown taper fro - 5 to 0 07/13 over days. Azithromycin 00/ Hx Tablets 250mg 2 tabs by Unknown /0000 mouth - every day 07/09 x1 day, tab by mouth every day x 4 days Guaifenesin Hx Solution 100mg/5ML 1-2 Unknown /0000 teaspoon - by mouth 06/26 every - as needed cough Cefuroxime Axetil Hx Tablets 250mg one Unknown /0000 tablet - twice 02/13 daily for 10 days. Melatonin Hx Capsules 3mg 1 by Unknown /0000 mouth - every 02/22 night at bedtime Clotrimazole Hx Ranjan 10mg use 1 Unknown 0000 ranjan 5 - times 02/10 daily for 7 days Combivent Hx Aerosol 20-100mcg Unknown Respimat / /Act - 04/17 Cefuroxime Axetil Hx Tablets 250mg one Unknown /0000 tablet - twice 02/07 daily for 10 days. Clotrimazole Hx Ranjan 10mg Dissolve Unknown 0000 1 Tablet - In Mouth 02/22 5 Times Daily prn Hydrochlorothiazi Hx Tablets 25mg 1 by Unknown de / mouth - every day 06/18 Oxycodone HCL Hx Tablets 5mg 1-2 tabs / by mouth - every 4 02/05 hours needed Medications Administered in Office Medication Date Status Form Strength Qnty SIG Indications Ordering Provider Inj, Administered Injection Erick [place] Regadenoson, 016 Garcia, 0.1 MG M.DCorbin, FACC, FASNC Technetium TC Administered Injection Erickivett [place] 99M 016 Joes Tetrofosmin, Dean, FACC, Per Unit Dose FASNC Up To 40 Millicuries Inj, Administered Injection Merlin DCorbin Regadenoson, 013 Dean Nair 0.1 MG Technetium TC Administered Injection Merlin DCorbin 99M 013 Dean Nair Tetrofosmin, Per Unit Dose Up To 40 Millicuries Immunizations CPT Code Status Date Vaccine Reaction Lot # [id number] Given 04/28/2016 Influenza Virus Vaccine, no reaction noted .. [id number] Quadrivalent, Split, hh Preservative Free 53538 Given 07/13/2015 Influenza Virus Vaccine, [id number] Quadrivalent, Split, Preservative Free 93574 Given 11/06/2014 Pneumococcal Conjugate [id number] Vaccine 13 Valent For Intramuscular Use [id number] Given 06/05/2014 Flu Vaccine Split Virus [id number] Preservative Free For Indiv 3Yr Older [id number] Given 09/03/2013 Fluvirin Im 3Yrs And Older 03887 Given 09/03/2013 Pneumonia Vaccine [id number] Vital Signs Date Vital Result Comment 10/29/2017 Height 61 inches 5'1" Weight 84.12 lb Heart Rate 68 /min BP Systolic Sitting 148 mmHg Lue peds cuff BP Diastolic Sitting 82 mmHg Lue peds cuff Respiratory Rate 12 /min O2 % BldC Oximetry 91 % BMI (Body Mass Index) 15.9 kg/m2 10/12/2017 Weight 84.75 lb Heart Rate 93 /min BP Systolic Sitting 160 mmHg BP Diastolic Sitting 96 mmHg O2 % BldC Oximetry 99 % W 2L 02 via NC 09/21/2017 Height 61 inches 5'1" Weight 80.00 lb BP Systolic 144 mmHg BP Diastolic 96 mmHg Respiratory Rate 22 /min Body Temperature 97.7 F Pain Level 4 BMI (Body Mass Index) 15.1 kg/m2 06/15/2017 Height 61 inches 5'1" Weight 80.00 lb Heart Rate 72 /min Respiratory Rate 20 /min Body Temperature 97.8 F BMI (Body Mass Index) 15.1 kg/m2 03/27/2017 Height 61 inches 5'1" Weight 80.00 lb Heart Rate 86 /min BP Systolic 136 mmHg BP Diastolic 80 mmHg Body Temperature 98.6 F O2 % BldC Oximetry 96 % 2 liers O2 NC BMI (Body Mass Index) 15.1 kg/m2 03/01/2017 Height 61 inches 5'1" Weight 82.00 lb Heart Rate 76 /min BP Systolic Sitting 138 mmHg BP Diastolic Sitting 78 mmHg Respiratory Rate 20 /min O2 % BldC Oximetry 97 % O2 via NC @ 2LPM BMI (Body Mass Index) 15.5 kg/m2 02/22/2017 Heart Rate 89 /min BP Systolic Sitting 136 mmHg BP Diastolic Sitting 90 mmHg O2 % BldC Oximetry 85 % 2 L O2 08/25/2016 Height 61 inches 5'1" Weight 92.00 lb Heart Rate 90 /min BP Systolic Sitting 144 mmHg BP Diastolic Sitting 94 mmHg Body Temperature 97.8 F O2 % BldC Oximetry 96 % BMI (Body Mass Index) 17.4 kg/m2 08/01/2016 Weight 91.00 lb Heart Rate 87 /min BP Systolic 132 mmHg BP Diastolic 80 mmHg Respiratory Rate 16 /min O2 % BldC Oximetry 90 % 05/30/2016 Weight 91.00 lb with shoes Heart Rate 108 /min BP Systolic Sitting 130 mmHg BP Diastolic Sitting 76 mmHg O2 % BldC Oximetry 99 % on 2 liter 05/17/2016 Height 61 inches 5'1" Weight 91.38 lb Heart Rate 105 /min BP Systolic 178 mmHg BP Diastolic 90 mmHg Respiratory Rate 20 /min O2 % BldC Oximetry 99 % 3 liters BMI (Body Mass Index) 17.3 kg/m2 04/28/2016 Weight 93.00 lb Heart Rate 104 /min BP Systolic Sitting 160 mmHg BP Diastolic Sitting 92 mmHg O2 % BldC Oximetry 94 % 04/21/2016 Weight 91.50 lb Heart Rate 100 /min BP Systolic Sitting 190 mmHg 190/120 (L) BP Diastolic Sitting 110 mmHg 190/120 (L) O2 % BldC Oximetry 91 % 02/14/2016 Height 61 inches 5'1" Weight 90.00 lb Heart Rate 99 /min BP Systolic Sitting 148 mmHg BP Diastolic Sitting 84 mmHg Respiratory Rate 16 /min O2 % BldC Oximetry 97 % BMI (Body Mass Index) 17.0 kg/m2 02/08/2016 Weight 90.00 lb BP Systolic Sitting 150 mmHg BP Diastolic Sitting 80 mmHg Respiratory Rate 14 /min Body Temperature 98.2 F 11/23/2015 Weight 93.00 lb Heart Rate 88 /min BP Systolic Sitting 134 mmHg BP Diastolic Sitting 80 mmHg Respiratory Rate 15 /min Body Temperature 98.2 F O2 % BldC Oximetry 96 % 11/16/2015 Height 61 inches 5'1" Weight 86.00 lb Heart Rate 90 /min BP Systolic 136 mmHg BP Diastolic 84 mmHg Respiratory Rate 14 /min O2 % BldC Oximetry 98 % BMI (Body Mass Index) 16.2 kg/m2 10/12/2015 Height 61 inches 5'1" Weight 86.00 lb Heart Rate 93 /min BP Systolic Sitting 144 mmHg BP Diastolic Sitting 82 mmHg Respiratory Rate 14 /min O2 % BldC Oximetry 98 % BMI (Body Mass Index) 16.2 kg/m2 08/24/2015 Height 61 inches 5'1" Weight 86.75 lb Heart Rate 104 /min BP Systolic Sitting 164 mmHg BP Diastolic Sitting 94 mmHg Body Temperature 98.2 F O2 % BldC Oximetry 96 % BMI (Body Mass Index) 16.4 kg/m2 07/13/2015 Weight 82.25 lb Heart Rate 102 /min BP Systolic Sitting 165 mmHg BP Diastolic Sitting 84 mmHg Body Temperature 98.6 F O2 % BldC Oximetry 97 % 06/23/2015 Weight 81.00 lb Heart Rate 107 /min BP Systolic Sitting 159 mmHg BP Diastolic Sitting 82 mmHg Body Temperature 97.9 F O2 % BldC Oximetry 98 % 06/03/2015 Weight 80.00 lb Heart Rate 100 /min BP Systolic Sitting 152 mmHg BP Diastolic Sitting 87 mmHg Body Temperature 98.3 F O2 % BldC Oximetry 97 % 02/09/2015 Height 61 inches 5'1" Weight 82.00 lb Heart Rate 101 /min BP Systolic Sitting 140 mmHg BP Diastolic Sitting 82 mmHg Body Temperature 98.7 F BMI (Body Mass Index) 15.5 kg/m2 02/09/2015 Height 61 inches 5'1" Weight 81.00 lb Heart Rate 92 /min BP Systolic Sitting 138 mmHg BP Diastolic Sitting 78 mmHg Respiratory Rate 16 /min BMI (Body Mass Index) 15.3 kg/m2 11/06/2014 Weight 86.75 lb Heart Rate 84 /min BP Systolic Sitting 147 mmHg BP Diastolic Sitting 82 mmHg Body Temperature 98.3 F O2 % BldC Oximetry 98 % 08/10/2014 Height 61 inches 5'1" Weight 80.00 lb Heart Rate 68 /min BP Systolic Sitting 132 mmHg BP Diastolic Sitting 78 mmHg Body Temperature 97.5 F BMI (Body Mass Index) 15.1 kg/m2 06/05/2014 Weight 80.75 lb Heart Rate 72 /min BP Systolic Sitting 150 mmHg BP Diastolic Sitting 84 mmHg Body Temperature 97.7 F 02/05/2014 Height 62 inches 5'2" Weight 80.00 lb Heart Rate 72 /min BP Systolic Sitting 118 mmHg BP Diastolic Sitting 50 mmHg Respiratory Rate 16 /min BMI (Body Mass Index) 14.6 kg/m2 12/26/2013 Weight 84.00 lb Heart Rate 86 /min BP Systolic Sitting 112 mmHg BP Diastolic Sitting 64 mmHg 12/03/2013 Weight 87.50 lb Heart Rate 84 /min BP Systolic 144 mmHg BP Diastolic 64 mmHg Respiratory Rate 16 /min Body Temperature 97.9 F 11/03/2013 Weight 84.25 lb ith shoes Heart Rate 88 /min BP Systolic 112 mmHg BP Diastolic 56 mmHg Respiratory Rate 14 /min Body Temperature 98.5 F O2 % BldC Oximetry 97 % 09/29/2013 Weight 86.00 lb Heart Rate 92 /min BP Systolic Sitting 120 mmHg BP Diastolic Sitting 60 mmHg Respiratory Rate 15 /min Body Temperature 98.6 F O2 % BldC Oximetry 100 % 09/03/2013 Weight 87.00 lb Heart Rate 70 /min BP Systolic Sitting 118 mmHg BP Diastolic Sitting 80 mmHg O2 % BldC Oximetry 96 % dropped to 86 after 3 laps 08/18/2013 Weight 82.00 lb Heart Rate 68 /min BP Systolic Sitting 100 mmHg BP Diastolic Sitting 62 mmHg O2 % BldC Oximetry 92 % 08/08/2013 Weight 88.00 lb Heart Rate 70 /min BP Systolic Sitting 110 mmHg BP Diastolic Sitting 60 mmHg O2 % BldC Oximetry 93 % 07/09/2013 Height 62 inches 5'2" Weight 87.00 lb Heart Rate 88 /min BP Systolic 126 mmHg BP Diastolic 58 mmHg BMI (Body Mass Index) 15.9 kg/m2 06/10/2013 Heart Rate 76 /min BP Systolic Sitting 102 mmHg BP Diastolic Sitting 62 mmHg Respiratory Rate 18 /min 05/14/2013 Weight 86.25 lb Heart Rate 88 /min BP Systolic 138 mmHg BP Diastolic 50 mmHg O2 % BldC Oximetry 91 % 02/28/2013 Weight 85.00 lb Heart Rate 82 /min BP Systolic Sitting 110 mmHg BP Diastolic Sitting 64 mmHg O2 % BldC Oximetry 93 % 01/24/2013 Height 61 inches 5'1" Weight 88.00 lb Heart Rate 84 /min BP Systolic Sitting 118 mmHg BP Diastolic Sitting 70 mmHg BMI (Body Mass Index) 16.6 kg/m2 Results Test Date Test Result H/L Range Note Laboratory test finding 10/10/2017 TSH (Thyroid Stim 7.13 mcIU/mL High 0.34-5.60 1, 2 Horm) CBC Auto Diff 10/10/2017 White Blood Count 3.7 10^3/uL 3.5-10.8 1 Red Blood Count 3.72 10^6/uL Low 4.0-5.4 1 Hemoglobin 13.1 g/dL 12.0-16.0 1 Hematocrit 38 % 35-47 1 Mean Corpuscular Volume 102 fL High 80-97 1 Mean Corpuscular Hemoglobin 35 pg High 27-31 1 Mean Corpuscular HGB Conc 35 g/dL 31-36 1 Red Cell Distribution Width 14 % 10.5-15 1 Platelet Count 142 10^3/uL Low 150-450 1 Mean Platelet Volume 7 um3 Low 7.4-10.4 1 Abs Neutrophils 2.5 10^3/uL 1.5-7.7 1 Abs Lymphocytes 0.5 10^3/uL Low 1.0-4.8 1 Abs Monocytes 0.6 10^3/uL 0-0.8 1 Abs Eosinophils 0.1 10^3/uL 0-0.6 1 Abs Basophils 0 10^3/uL 0-0.2 1 Abs Nucleated RBC 0 10^3/uL 1 Granulocyte % 66.7 % 38-83 1 Lymphocyte % 14.1 % Low 25-47 1 Monocyte % 16.7 % High 0-7 1 Eosinophil % 2.0 % 0-6 1 Basophil % 0.5 % 0-2 1 Nucleated Red Blood Cells % 0.1 1 Comp Metabolic Panel 10/10/2017 Sodium 129 mmol/L Low 133-145 1 Potassium 4.1 mmol/L 3.5-5.0 1 Chloride 91 mmol/L Low 101-111 1 Co2 Carbon Dioxide 32 mmol/L 22-32 1 Anion Gap 6 mmol/L 2-11 1 Glucose 109 mg/dL High 70-100 1 Blood Urea Nitrogen 9 mg/dL 6-24 1 Creatinine 0.51 mg/dL 0.51-0.95 1 BUN/Creatinine Ratio 17.6 8-20 1 Calcium 9.5 mg/dL 8.6-10.3 1 Total Protein 7.2 g/dL 6.4-8.9 1 Albumin 4.4 g/dL 3.2-5.2 1 Globulin 2.8 g/dL 2-4 1 Albumin/Globulin Ratio 1.6 1-3 1 Total Bilirubin 0.70 mg/dL 0.2-1.0 1 Alkaline Phosphatase 96 U/L 34-104 1 Alt 34 U/L 7-52 1 Ast 40 U/L High 13-39 1 Egfr Non- 119.2 >60 1 Egfr 153.3 >60 1, 3 Lipid Profile (Trig/Chol/HDL) 10/10/2017 Triglycerides 67 mg/dL 1, 4 Cholesterol 163 mg/dL 1, 5 HDL Cholesterol 97.0 mg/dL 1, 6 LDL Cholesterol 53 mg/dL 1, 7 Laboratory test finding 07/22/2017 Lipase < 10 U/L Low 11.0-82.0 C Reactive Protein 16.37 mg/L High < 5.00 8 Lactic Acid 1.2 mmol/L 0.5-2.0 9 CBC Auto Diff 07/22/2017 White Blood Count 5.8 10^3/uL 3.5-10.8 Red Blood Count 3.99 10^6/uL Low 4.0-5.4 Hemoglobin 13.1 g/dL 12.0-16.0 Hematocrit 39 % 35-47 Mean Corpuscular Volume 99 fL High 80-97 Mean Corpuscular Hemoglobin 33 pg High 27-31 Mean Corpuscular HGB Conc 33 g/dL 31-36 Red Cell Distribution Width 16 % High 10.5-15 Platelet Count 139 10^3/uL Low 150-450 Mean Platelet Volume 7 um3 Low 7.4-10.4 Abs Neutrophils 4.4 10^3/uL 1.5-7.7 Abs Lymphocytes 0.5 10^3/uL Low 1.0-4.8 Abs Monocytes 0.8 10^3/uL 0-0.8 Abs Eosinophils 0 10^3/uL 0-0.6 Abs Basophils 0 10^3/uL 0-0.2 Abs Nucleated RBC 0 10^3/uL Granulocyte % 76.1 % 38-83 Lymphocyte % 9.2 % Low 25-47 Monocyte % 13.7 % High 1-9 Eosinophil % 0.7 % 0-6 Basophil % 0.3 % 0-2 Nucleated Red Blood Cells % 0 Inr/Protime 07/22/2017 Inr 1.05 High 0.77-1.02 10 Laboratory test finding 07/22/2017 Partial Thrombo 32.3 seconds 26.0- 36.3 Time PTT B-Type Natriuretic Peptide BNP 168 pg/mL High 11 Comp Metabolic Panel 07/22/2017 Sodium 128 mmol/L Low 133-145 Potassium 3.7 mmol/L 3.5-5.0 Chloride 91 mmol/L Low 101-111 Co2 Carbon Dioxide 32 mmol/L 22-32 Anion Gap 5 mmol/L 2-11 Glucose 94 mg/dL 70-100 Blood Urea Nitrogen 5 mg/dL Low 6-24 Creatinine 0.42 mg/dL Low 0.51-0.95 BUN/Creatinine Ratio 11.9 8-20 Calcium 8.9 mg/dL 8.6-10.3 Total Protein 6.9 g/dL 6.4-8.9 Albumin 3.6 g/dL 3.2-5.2 Globulin 3.3 g/dL 2-4 Albumin/Globulin Ratio 1.1 1-3 Total Bilirubin 0.80 mg/dL 0.2-1.0 Alkaline Phosphatase 163 U/L High 34-104 Alt 9 U/L 7-52 Ast 22 U/L 13-39 Egfr Non- 149.2 >60 Egfr 191.8 >60 12 Urinalysis Profile 07/22/2017 Urine Color Straw Urine Appearance Clear Urine Specific [place] 1.003 Low 1.010-1.030 Urine pH 7.0 5-9 Urine Urobilinogen Negative Negative Urine Ketones Negative Negative Urine Protein Negative Negative Urine Leukocytes Negative Negative Urine Blood Negative Negative Urine Nitrite Negative Negative Urine Bilirubin Negative Negative Urine Glucose Negative Negative Laboratory test finding 02/20/2017 TSH (Thyroid Stim Horm) 1.74 mcIU/mL 0.34-5.60 CBC Auto Diff 02/20/2017 White Blood Count 6.1 10^3/uL 3.5-10.8 Red Blood Count 3.77 10^6/uL Low 4.0-5.4 Hemoglobin 13.5 g/dL 12.0-16.0 Hematocrit 40 % 35-47 Mean Corpuscular Volume 106 fL High 80-97 Mean Corpuscular Hemoglobin 36 pg High 27-31 Mean Corpuscular HGB Conc 34 g/dL 31-36 Red Cell Distribution Width 11 % 10.5-15 Platelet Count 145 10^3/uL Low 150-450 Mean Platelet Volume 8 um3 7.4-10.4 Abs Neutrophils 5.1 10^3/uL 1.5-7.7 Abs Lymphocytes 0.2 10^3/uL Low 1.0-4.8 Abs Monocytes 0.7 10^3/uL 0-0.8 Abs Eosinophils 0 10^3/uL 0-0.6 Abs Basophils 0.1 10^3/uL 0-0.2 Abs Nucleated RBC 0 10^3/uL Granulocyte % 82.8 % 38-83 Lymphocyte % 3.7 % Low 25-47 Monocyte % 12.0 % High 1-9 Eosinophil % 0.4 % 0-6 Basophil % 1.1 % 0-2 Nucleated Red Blood Cells % 0 Laboratory test finding 08/23/2016 TSH (Thyroid Stim Horm) 1.88 mcIU/mL 0.34-5.60 CBC Auto Diff 08/23/2016 White Blood Count 5.8 10^3/uL 3.5-10.8 Red Blood Count 4.02 10^6/uL 4.0-5.4 Hemoglobin 14.2 g/dL 12.0-16.0 Hematocrit 42 % 35-47 Mean Corpuscular Volume 104 fL High 80-97 Mean Corpuscular Hemoglobin 35 pg High 27-31 Mean Corpuscular HGB Conc 34 g/dL 31-36 Red Cell Distribution Width 11 % 10.5-15 Platelet Count 182 10^3/uL 150-450 Mean Platelet Volume 7 um3 Low 7.4-10.4 Abs Neutrophils 4.5 10^3/uL 1.5-7.7 Abs Lymphocytes 0.5 10^3/uL Low 1.0-4.8 Abs Monocytes 0.8 10^3/uL 0-0.8 Abs Eosinophils 0 10^3/uL 0-0.6 Abs Basophils 0 10^3/uL 0-0.2 Abs Nucleated RBC 0 10^3/uL Granulocyte % 76.2 % 38-83 Lymphocyte % 9.2 % Low 25-47 Monocyte % 13.3 % High 1-9 Eosinophil % 0.7 % 0-6 Basophil % 0.6 % 0-2 Nucleated Red Blood Cells % 0 Laboratory test finding 05/24/2016 Vitamin D Total 25(Oh) 32.6 ng/mL 30- 50 CBC Auto Diff 05/24/2016 White Blood Count 4.1 10^3/uL 3.5-10.8 Red Blood Count 3.56 10^6/uL Low 4.0-5.4 Hemoglobin 13.0 g/dL 12.0-16.0 Hematocrit 38 % 35-47 Mean Corpuscular Volume 107 fL High 80-97 Mean Corpuscular Hemoglobin 36 pg High 27-31 Mean Corpuscular HGB Conc 34 g/dL 31-36 Red Cell Distribution Width 11 % 10.5-15 Platelet Count 146 10^3/uL Low 150-450 Mean Platelet Volume 7 um3 Low 7.4-10.4 Abs Neutrophils 3.0 10^3/uL 1.5-7.7 Abs Lymphocytes 0.4 10^3/uL Low 1.0-4.8 Abs Monocytes 0.7 10^3/uL 0-0.8 Abs Eosinophils 0 10^3/uL 0-0.6 Abs Basophils 0 10^3/uL 0-0.2 Abs Nucleated RBC 0 10^3/uL Granulocyte % 71.9 % 38-83 Lymphocyte % 10.6 % Low 25-47 Monocyte % 16.2 % High 1-9 Eosinophil % 0.8 % 0-6 Basophil % 0.5 % 0-2 Nucleated Red Blood Cells % 0.1 Comp Metabolic Panel 05/24/2016 Sodium 133 mmol/L 133-145 Potassium 3.9 mmol/L 3.5-5.0 Chloride 95 mmol/L Low 101-111 Co2 Carbon Dioxide 34 mmol/L High 22-32 Anion Gap 4 mmol/L 2-11 Glucose 85 mg/dL 70-100 Blood Urea Nitrogen 6 mg/dL 6-24 Creatinine 0.54 mg/dL 0.51-0.95 BUN/Creatinine Ratio 11.1 8-20 Calcium 9.2 mg/dL 8.6-10.3 Total Protein 6.5 g/dL 6.4-8.9 Albumin 4.1 g/dL 3.2-5.2 Globulin 2.4 g/dL 2-4 Albumin/Globulin Ratio 1.7 1-3 Total Bilirubin 0.60 mg/dL 0.2-1.0 Alkaline Phosphatase 65 U/L 34-104 Alt 26 U/L 7-52 Ast 34 U/L 13-39 Egfr Non- 111.9 >60 Egfr 144.0 >60 13 Lipid Profile (Trig/Chol/HDL) 05/24/2016 Triglycerides 73 mg/dL 14 Cholesterol 197 mg/dL 15 HDL Cholesterol 123.5 mg/dL 16 LDL Cholesterol 59 mg/dL 17 CBC Auto Diff 03/15/2016 White Blood Count 6.8 10^3/uL 3.5-10.8 Red Blood Count 3.67 10^6/uL Low 4.0-5.4 Hemoglobin 13.7 g/dL 12.0-16.0 Hematocrit 40 % 35-47 Mean Corpuscular Volume 109 fL High 80-97 Mean Corpuscular Hemoglobin 37 pg High 27-31 Mean Corpuscular HGB Conc 34 g/dL 31-36 Red Cell Distribution Width 13 % 10.5-15 Platelet Count 175 10^3/uL 150-450 Mean Platelet Volume 8 um3 7.4-10.4 Abs Neutrophils 5.8 10^3/uL 1.5-7.7 Abs Lymphocytes 0.3 10^3/uL Low 1.0-4.8 Abs Monocytes 0.6 10^3/uL 0-0.8 Abs Eosinophils 0 10^3/uL 0-0.6 Abs Basophils 0.1 10^3/uL 0-0.2 Abs Nucleated RBC 0 10^3/uL Granulocyte % 84.8 % High 38-83 Lymphocyte % 4.5 % Low 25-47 Monocyte % 9.0 % 1-9 Eosinophil % 0.3 % 0-6 Basophil % 1.4 % 0-2 Nucleated Red Blood Cells % 0 Basic Metabolic Panel 03/15/2016 Sodium 135 mmol/L 133-145 Potassium 4.2 mmol/L 3.5-5.0 Chloride 96 mmol/L Low 101-111 Co2 Carbon Dioxide 31 mmol/L 22-32 Anion Gap 8 mmol/L 2-11 Glucose 90 mg/dL 70-100 Blood Urea Nitrogen 12 mg/dL 6-24 Creatinine 0.69 mg/dL 0.51-0.95 BUN/Creatinine Ratio 17.4 8-20 Calcium 9.4 mg/dL 8.6-10.3 Egfr Non- 84.6 >60 Egfr 108.8 >60 18 Laboratory test finding 01/28/2016 B-Type Natriuretic Peptide BNP 69 pg/mL 19 Osmolality Serum 276 mOsm/kg 275-295 TSH (Thyroid Stim Horm) 1.61 ?IU/mL 0.34-5.60 Blood Culture SEE RESULT BELOW 20 Comp Metabolic Panel 01/28/2016 Sodium 125 mmol/L Low 133-145 Potassium 5.5 mmol/L High 3.5-5.0 Chloride 86 mmol/L Low 101-111 Co2 Carbon Dioxide 31 mmol/L 22-32 Anion Gap 8 mmol/L 2-11 Glucose 119 mg/dL High 70-100 Blood Urea Nitrogen 13 mg/dL 6-24 Creatinine 0.65 mg/dL 0.51-0.95 BUN/Creatinine Ratio 20.0 8-20 Calcium 9.6 mg/dL 8.6-10.3 Total Protein 7.1 g/dL 6.4-8.9 Albumin 4.4 g/dL 3.2-5.2 Globulin 2.7 g/dL 2-4 Albumin/Globulin Ratio 1.6 1-3 Total Bilirubin 1.00 mg/dL 0.2-1.0 Alkaline Phosphatase 55 U/L 34-104 Alt 33 U/L 7-52 Ast 36 U/L 13-39 Egfr Non- 90.6 >60 Egfr 116.6 >60 21 Laboratory test finding 01/28/2016 Troponin-I (TnI) 0.01 ng/mL <0.03 22 Lactic Acid 2.4 mmol/L High 0.5-2.0 23 CBC Auto Diff 01/28/2016 White Blood Count 8.3 10^3/uL 3.5-10.8 Red Blood Count 4.21 10^6/uL 4.0-5.4 Hemoglobin 15.3 g/dL 12.0-16.0 Hematocrit 44 % 35-47 Mean Corpuscular Volume 105 fL High 80-97 Mean Corpuscular Hemoglobin 36 pg High 27-31 Mean Corpuscular HGB Conc 35 g/dL 31-36 Red Cell Distribution Width 13 % 10.5-15 Platelet Count 187 10^3/uL 150-450 Mean Platelet Volume 7 um3 Low 7.4-10.4 Abs Neutrophils 6.9 10^3/uL 1.5-7.7 Abs Lymphocytes 0.6 10^3/uL Low 1.0-4.8 Abs Monocytes 0.8 10^3/uL 0-0.8 Abs Eosinophils 0 10^3/uL 0-0.6 Abs Basophils 0 10^3/uL 0-0.2 Abs Nucleated RBC 0.01 10^3/uL Granulocyte % 82.7 % 38-83 Lymphocyte % 6.8 % Low 25-47 Monocyte % 10.0 % High 1-9 Eosinophil % 0.1 % 0-6 Basophil % 0.4 % 0-2 Nucleated Red Blood Cells % 0.1 Basic Metabolic Panel 01/10/2016 Sodium 135 mmol/L 133-145 Potassium 3.8 mmol/L 3.5-5.0 Chloride 95 mmol/L Low 101-111 Co2 Carbon Dioxide 33 mmol/L High 22-32 Anion Gap 7 mmol/L 2-11 Glucose 135 mg/dL High 70-100 Blood Urea Nitrogen 19 mg/dL 6-24 Creatinine 0.76 mg/dL 0.51-0.95 BUN/Creatinine Ratio 25.0 High 8-20 Calcium 9.7 mg/dL 8.6-10.3 Egfr Non- 75.7 >60 Egfr 97.3 >60 24 Alpha 1 Antitrypsin Phenotypin 10/28/2015 A1a Phenotype MM bands 25 Alpha 1 Antitrypsin A1a 103 mg/dL 100 - 190 26 Basic Metabolic Panel 10/28/2015 Sodium 135 mmol/L 133-145 Potassium 4.2 mmol/L 3.5-5.0 Chloride 97 mmol/L Low 101-111 Co2 Carbon Dioxide 32 mmol/L 22-32 Anion Gap 6 mmol/L 2-11 Glucose 89 mg/dL 70-100 Blood Urea Nitrogen 20 mg/dL 6-24 Creatinine 0.66 mg/dL 0.51-0.95 BUN/Creatinine Ratio 30.3 High 8-20 Calcium 9.4 mg/dL 8.6-10.3 Egfr Non- 89.1 >60 Egfr 114.5 >60 27 CBC Auto Diff 10/28/2015 White Blood Count 3.8 10^3/uL 3.5-10.8 Red Blood Count 4.22 10^6/uL 4.0-5.4 Hemoglobin 15.3 g/dL 12.0-16.0 Hematocrit 44 % 35-47 Mean Corpuscular Volume 105 fL High 80-97 Mean Corpuscular Hemoglobin 36 pg High 27-31 Mean Corpuscular HGB Conc 35 g/dL 31-36 Red Cell Distribution Width 11 % 10.5-15 Platelet Count 118 10^3/uL Low 150-450 Mean Platelet Volume 8 um3 7.4-10.4 Abs Neutrophils 2.6 10^3/uL 1.5-7.7 Abs Lymphocytes 0.6 10^3/uL Low 1.0-4.8 Abs Monocytes 0.5 10^3/uL 0-0.8 Abs Eosinophils 0 10^3/uL 0-0.6 Abs Basophils 0.1 10^3/uL 0-0.2 Abs Nucleated RBC 0 10^3/uL Granulocyte % 67.6 % 38-83 Lymphocyte % 15.6 % Low 25-47 Monocyte % 13.1 % High 1-9 Eosinophil % 1.2 % 0-6 Basophil % 2.5 % High 0-2 Nucleated Red Blood Cells % 0.1 Laboratory test 10/28/2015 TSH (Thyroid Stim 1.31 ?IU/mL 0.34-5.60 28 finding Horm) Laboratory test 09/17/2015 Surgical Pathology SEE RESULT BELOW 29 finding CBC Auto Diff 09/15/2015 White Blood Count 3.4 10^3/uL Low 3.5-10.8 Red Blood Count 4.08 10^6/uL 4.0-5.4 Hemoglobin 14.9 g/dL 12.0-16.0 Hematocrit 46 % 35-47 Mean Corpuscular Volume 112 fL High 80-97 Mean Corpuscular Hemoglobin 37 pg High 27-31 Mean Corpuscular HGB Conc 33 g/dL 31-36 Red Cell Distribution Width 13 % 10.5-15 Platelet Count 125 10^3/uL Low 150-450 Mean Platelet Volume 8 um3 7.4-10.4 Abs Neutrophils 2.1 10^3/uL 1.5-7.7 Abs Lymphocytes 0.6 10^3/uL Low 1.0-4.8 Abs Monocytes 0.6 10^3/uL 0-0.8 Abs Eosinophils 0 10^3/uL 0-0.6 Abs Basophils 0 10^3/uL 0-0.2 Abs Nucleated RBC 0 10^3/uL Granulocyte % 61.1 % 38-83 Lymphocyte % 18.3 % Low 25-47 Monocyte % 18.7 % High 1-9 Eosinophil % 1.5 % 0-6 Basophil % 0.4 % 0-2 Nucleated Red Blood Cells % 0 Lipid Profile (Trig/Chol/HDL) 08/19/2015 Triglycerides 90 mg/dL 30 Cholesterol 165 mg/dL 31 HDL Cholesterol 80.3 mg/dL 32 LDL Cholesterol 67 mg/dL 33 Comp Metabolic Panel 08/19/2015 Sodium 135 mmol/L 133-145 Potassium 4.4 mmol/L 3.5-5.0 Chloride 98 mmol/L Low 101-111 Co2 Carbon Dioxide 32 mmol/L 22-32 Anion Gap 5 mmol/L 2-11 Glucose 100 mg/dL 70-100 Blood Urea Nitrogen 11 mg/dL 6-24 Creatinine 0.61 mg/dL 0.51-0.95 BUN/Creatinine Ratio 18.0 8-20 Calcium 9.1 mg/dL 8.6-10.3 Total Protein 6.4 g/dL 6.4-8.9 Albumin 4.3 g/dL 3.2-5.2 Globulin 2.1 g/dL 2-4 Albumin/Globulin Ratio 2.0 1-3 Total Bilirubin 0.60 mg/dL 0.2-1.0 Alkaline Phosphatase 68 U/L 34-104 Alt 13 U/L 7-52 Ast 24 U/L 13-39 Egfr Non- 97.5 >60 Egfr 125.4 >60 34 CBC Auto Diff 07/04/2015 White Blood Count 15.0 10^3/uL High 4.8-10.8 Red Blood Count 4.16 10^6/uL 4.0-5.4 Hemoglobin 15.1 g/dL 12.0-16.0 Hematocrit 45 % 35-47 Mean Corpuscular Volume 109 fL High 80-97 35 Mean Corpuscular Hemoglobin 36 pg High 27-31 Mean Corpuscular HGB Conc 33 g/dL 31-36 Red Cell Distribution Width 12 % 10.5-15 Platelet Count 133 10^3/uL Low 150-450 Mean Platelet Volume 9 um3 7.4-10.4 Abs Neutrophils 13.9 10^3/uL High 1.5-7.7 Abs Lymphocytes 0.3 10^3/uL Low 1.0-4.8 Abs Monocytes 0.7 10^3/uL 0-0.8 Abs Eosinophils 0 10^3/uL 0-0.6 Abs Basophils 0.1 10^3/uL 0-0.2 Abs Nucleated RBC 0.01 10^3/uL Granulocyte % 92.4 % High 38-83 Lymphocyte % 2.2 % Low 25-47 Monocyte % 4.7 % 1-9 Eosinophil % 0.3 % 0-6 Basophil % 0.4 % 0-2 Nucleated Red Blood Cells % 0.1 Comp Metabolic Panel 07/04/2015 Sodium 129 mmol/L Low 133-145 Potassium 3.6 mmol/L 3.5-5.0 Chloride 92 mmol/L Low 101-111 Co2 Carbon Dioxide 28 mmol/L 22-32 Anion Gap 9 mmol/L 2-11 Glucose 101 mg/dL High 70-100 Blood Urea Nitrogen 6 mg/dL 6-24 Creatinine 0.74 mg/dL 0.51-0.95 BUN/Creatinine Ratio 8.1 8-20 Calcium 9.2 mg/dL 8.6-10.3 Total Protein 6.9 g/dL 6.4-8.9 Albumin 4.1 g/dL 3.2-5.2 Globulin 2.8 g/dL 2-4 Albumin/Globulin Ratio 1.5 1-3 Total Bilirubin 0.80 mg/dL 0.2-1.0 Alkaline Phosphatase 74 U/L 34-104 Alt 16 U/L 7-52 Ast 25 U/L 13-39 Egfr Non- 78.0 >60 Egfr 100.4 >60 36 Laboratory test finding 07/04/2015 Troponin-I (TnI) 0.01 ng/mL <0.03 37 Laboratory test finding 02/09/2015 Folic Acid (Folate) > 20.00 ng/mL & gt;3.99 Vitamin B12 514 pg/mL 180-914 38 Comp Metabolic Panel 02/09/2015 Sodium 134 mmol/L 133-145 Potassium 4.0 mmol/L 3.5-5.0 Chloride 98 mmol/L Low 101-111 Albumin 4.6 g/dL 3.2-5.2 Co2 Carbon Dioxide 29 mmol/L 22-32 Anion Gap 7 mmol/L 2-11 Glucose 82 mg/dL 70-100 Blood Urea Nitrogen 13 mg/dL 6-24 Creatinine 0.67 mg/dL 0.51-0.95 BUN/Creatinine Ratio 19.4 8-20 Calcium 9.3 mg/dL 8.6-10.3 Total Protein 7.0 g/dL 6.4-8.9 Globulin 2.4 g/dL 2-4 Albumin/Globulin Ratio 1.9 1-3 Total Bilirubin 0.50 mg/dL 0.2-1.0 Alkaline Phosphatase 61 U/L 34-104 Alt 20 U/L 7-52 Ast 32 U/L 13-39 Egfr Non- 87.8 >60 Egfr 112.9 >60 39 CBC Auto Diff 02/09/2015 White Blood Count 3.5 10^3/uL Low 4.8-10.8 Red Blood Count 4.31 10^6/uL 4.0-5.4 Hemoglobin 16.1 g/dL High 12.0-16.0 Hematocrit 49 % High 35-47 Mean Corpuscular Volume 113 fL High 80-97 40 Mean Corpuscular Hemoglobin 37 pg High 27-31 Mean Corpuscular HGB Conc 33 g/dL 31-36 Red Cell Distribution Width 12 % 10.5-15 Platelet Count 110 10^3/uL Low 150-450 Mean Platelet Volume 8 um3 7.4-10.4 Abs Neutrophils 2.6 10^3/uL 1.5-7.7 Abs Lymphocytes 0.4 10^3/uL Low 1.0-4.8 Abs Monocytes 0.5 10^3/uL 0-0.8 Abs Eosinophils 0 10^3/uL 0-0.6 Abs Basophils 0 10^3/uL 0-0.2 Abs Nucleated RBC 0 10^3/uL Granulocyte % 73.5 % 38-83 Lymphocyte % 10.6 % Low 25-47 Monocyte % 14.5 % High 1-9 Eosinophil % 0.6 % 0-6 Basophil % 0.8 % 0-2 Nucleated Red Blood Cells % 0.1 CBC Auto Diff 12/18/2014 White Blood Count 2.0 10^3/uL Low 4.8-10.8 41 Red Blood Count 3.85 10^6/uL Low 4.0-5.4 Hemoglobin 14.6 g/dL 12.0-16.0 Hematocrit 43 % 35-47 Mean Corpuscular Volume 111 fL High 80-97 42 Mean Corpuscular Hemoglobin 38 pg High 27-31 Mean Corpuscular HGB Conc 34 g/dL 31-36 Red Cell Distribution Width 12 % 10.5-15 Platelet Count 119 10^3/uL Low 150-450 Mean Platelet Volume 8 um3 7.4-10.4 Abs Neutrophils 1.0 10^3/uL Low 1.5-7.7 Abs Lymphocytes 0.6 10^3/uL Low 1.0-4.8 Abs Monocytes 0.4 10^3/uL 0-0.8 Abs Eosinophils 0.1 10^3/uL 0-0.6 Abs Basophils 0 10^3/uL 0-0.2 Abs Nucleated RBC 0 10^3/uL Granulocyte % 47.9 % 38-83 Lymphocyte % 30.7 % 25-47 Monocyte % 17.2 % High 1-9 Eosinophil % 3.3 % 0-6 Basophil % 0.9 % 0-2 Nucleated Red Blood Cells % 0.1 CBC Auto Diff 11/06/2014 White Blood Count 3.0 10^3/uL Low 4.8-10.8 Red Blood Count 3.77 10^6/uL Low 4.0-5.4 Hemoglobin 14.6 g/dL 12.0-16.0 Hematocrit 42 % 35-47 Mean Corpuscular Volume 112 fL High 80-97 Mean Corpuscular Hemoglobin 39 pg High 27-31 Mean Corpuscular HGB Conc 35 g/dL 31-36 Red Cell Distribution Width 12 % 10.5-15 Platelet Count 106 10^3/uL Low 150-450 Mean Platelet Volume 8 um3 7.4-10.4 Abs Neutrophils 1.8 10^3/uL 1.5-7.7 Abs Lymphocytes 0.5 10^3/uL Low 1.0-4.8 Abs Monocytes 0.5 10^3/uL 0-0.8 Abs Eosinophils 0.1 10^3/uL 0-0.6 Abs Basophils 0 10^3/uL 0-0.2 Abs Nucleated RBC 0 10^3/uL Granulocyte % 62.6 % 38-83 Lymphocyte % 18.0 % Low 25-47 Monocyte % 16.7 % High 1-9 Eosinophil % 1.8 % 0-6 Basophil % 0.9 % 0-2 Nucleated Red Blood Cells % 0.1 CBC Auto Diff 10/10/2014 White Blood Count 2.7 10^3/uL Low 4.8-10.8 Red Blood Count 3.80 10^6/uL Low 4.0-5.4 Hemoglobin 14.7 g/dL 12.0-16.0 Hematocrit 42 % 35-47 Mean Corpuscular Volume 111 fL High 80-97 43 Mean Corpuscular Hemoglobin 39 pg High 27-31 Mean Corpuscular HGB Conc 35 g/dL 31-36 Red Cell Distribution Width 12 % 10.5-15 Platelet Count 108 10^3/uL Low 150-450 Mean Platelet Volume 8 um3 7.4-10.4 Abs Neutrophils 1.6 10^3/uL 1.5-7.7 Abs Lymphocytes 0.6 10^3/uL Low 1.0-4.8 Abs Monocytes 0.4 10^3/uL 0-0.8 Abs Eosinophils 0.1 10^3/uL 0-0.6 Abs Basophils 0 10^3/uL 0-0.2 Abs Nucleated RBC 0 10^3/uL Granulocyte % 59.6 % 38-83 Lymphocyte % 20.9 % Low 25-47 Monocyte % 16.0 % High 1-9 Eosinophil % 2.1 % 0-6 Basophil % 1.4 % 0-2 Nucleated Red Blood Cells % 0.1 Comp Metabolic Panel 10/10/2014 Sodium 135 mmol/L 133-145 Potassium 4.0 mmol/L 3.5-5.0 Chloride 99 mmol/L Low 101-111 Co2 Carbon Dioxide 31 mmol/L 22-32 Anion Gap 5 mmol/L 2-11 Glucose 97 mg/dL 70-100 Blood Urea Nitrogen 17 mg/dL 6-24 Creatinine 0.74 mg/dL 0.51-0.95 BUN/Creatinine Ratio 23.0 High 8-20 Calcium 9.6 mg/dL 8.6-10.3 Total Protein 6.8 g/dL 6.4-8.9 Albumin 4.3 g/dL 3.2-5.2 Globulin 2.5 g/dL 2-4 Albumin/Globulin Ratio 1.7 1-3 Total Bilirubin 0.40 mg/dL 0.2-1.0 Alkaline Phosphatase 53 U/L 34-104 Alt 21 U/L 7-52 Ast 33 U/L 13-39 Egfr Non- 78.3 >60 Egfr 100.7 >60 44 Laboratory test finding 10/10/2014 TSH (Thyroid 2.11 IU/mL 0.34-5.60 Stimulating Horm) Laboratory test finding 09/16/2014 TSH (Thyroid 2.69 IU/mL 0.34-5.60 Stimulating Horm) CBC Auto Diff 09/16/2014 White Blood Count 2.5 10^3/uL Low 4.8-10.8 Red Blood Count 3.76 10^6/uL Low 4.0-5.4 Hemoglobin 14.3 g/dL 12.0-16.0 Hematocrit 42 % 35-47 Mean Corpuscular Volume 112 fL High 80-97 Mean Corpuscular Hemoglobin 38 pg High 27-31 Mean Corpuscular HGB Conc 34 g/dL 31-36 Red Cell Distribution Width 12 % 10.5-15 Platelet Count 108 10^3/uL Low 150-450 Mean Platelet Volume 8 um3 7.4-10.4 Abs Neutrophils 1.5 10^3/uL 1.5-7.7 Abs Lymphocytes 0.5 10^3/uL Low 1.0-4.8 Abs Monocytes 0.5 10^3/uL 0-0.8 Abs Eosinophils 0 10^3/uL 0-0.6 Abs Basophils 0 10^3/uL 0-0.2 Abs Nucleated RBC 0.01 10^3/uL Granulocyte % 58.5 % 38-83 Lymphocyte % 19.9 % Low 25-47 Monocyte % 18.5 % High 1-9 Eosinophil % 1.5 % 0-6 Basophil % 1.6 % 0-2 Nucleated Red Blood Cells % 0.2 Comp Metabolic Panel 08/08/2014 Sodium 137 mmol/L 133-145 Potassium 4.1 mmol/L 3.5-5.0 Chloride 101 mmol/L 101-111 Co2 Carbon Dioxide 33 mmol/L High 22-32 Anion Gap 3 mmol/L 2-11 Glucose 87 mg/dL 70-100 Blood Urea Nitrogen 15 mg/dL 6-24 Creatinine 0.74 mg/dL 0.51-0.95 BUN/Creatinine Ratio 20.3 High 8-20 Calcium 9.2 mg/dL 8.6-10.3 Total Protein 6.8 g/dL 6.4-8.9 Albumin 4.4 g/dL 3.2-5.2 Globulin 2.4 g/dL 2-4 Albumin/Globulin Ratio 1.8 1-3 Total Bilirubin 0.60 mg/dL 0.2-1.0 Alkaline Phosphatase 46 U/L 34-104 Alt 18 U/L 7-52 Ast 31 U/L 13-39 Egfr Non- 78.3 >60 Egfr 100.7 >60 45 Lipid Profile (Trig/Chol/HDL) 08/08/2014 Triglycerides 67 mg/dL 46 Cholesterol 159 mg/dL 47 HDL Cholesterol 75.3 mg/dL 48 LDL Cholesterol 70 mg/dL 49 Laboratory test 08/08/2014 TSH (Thyroid 12.40 IU/mL High 0.34-5.60 finding Stimulating Horm) Laboratory test 05/19/2014 TSH (Thyroid 15.44 IU/mL High 0.34-5.60 finding Stimulating Horm) Comp Metabolic Panel 10/09/2013 Sodium 131 mmol/L [...] Egfr Non- 88.1 >60 Egfr 113.3 >60 50 CBC Auto Diff 10/09/2013 White Blood Count [...] Blood Cells % 0.1 Laboratory test finding 09/11/2013 Cortisol 22.32 g/dL 51 Laboratory test finding 09/11/2013 Cortisol 17.84 g/dL 52 Laboratory test finding 09/11/2013 Cortisol 9.39 g/dL 53 Laboratory test finding 08/18/2013 Throat Culture (SEE NOTE) 54 Rapid Strep A (SEE NOTE) 55 Throat Beta Strep Culture (SEE NOTE) 56 CBC With Manual Diff 08/12/2013 White Blood Count 5.0 10^3/uL 4.8-10.8 Red Blood Count 4.38 10^6/uL 4.0-5.4 Hemoglobin 16.0 g/dL 12.0-16.0 Hematocrit 47 % 35-47 Mean Corpuscular Volume 108 fL High 80-97 57 Mean Corpuscular Hemoglobin 36 pg High 27-31 Mean Corpuscular HGB Conc 34 g/dL 31-36 Red Cell Distribution Width 11 % 10.5-15 Platelet Count 132 10^3/uL Low 150-450 Mean Platelet Volume 8 um3 7.4-10.4 Abs Neutrophils 3.2 10^3/uL 1.5-7.7 Abs Lymphocytes 1.1 10^3/uL 1.0-4.8 Abs Monocytes 0.6 10^3/uL 0-0.8 Abs Eosinophils 0 10^3/uL 0-0.6 Abs Basophils 0 10^3/uL 0-0.2 Abs Nucleated RBC 0 10^3/uL Neutrophil % 62 % 38-83 Lymphocytes % 23 % Low 25-47 Monocytes % 11 % 0-13 Reactive Lymph % 4 % 0-6 Macrocytosis 2+ Basic Metabolic Panel 08/12/2013 Sodium 133 mmol/L 133-145 Potassium 3.6 mmol/L 3.5-5.0 Chloride 97 mmol/L Low 101-111 Co2 Carbon Dioxide 30.0 mmol/L 22-32 Anion Gap 6.0 mmol/L 2-11 Glucose 101 mg/dL High 70-100 Blood Urea Nitrogen 17 mg/dL 6-24 Creatinine 0.70 mg/dL 0.50-1.40 BUN/Creatinine Ratio 24.3 High 8-20 Calcium 9.5 mg/dL 8.1-9.9 Egfr Non- 83.7 >60 Egfr 107.7 >60 58 CBC With Manual Diff 07/09/2013 White Blood Count 4.7 10^3/uL Low 4.8- 10.8 Red Blood Count 4.56 10^6/uL 4.0-5.4 Hemoglobin 17.1 g/dL High 12.0-16.0 Hematocrit 50 % High 35-47 Mean Corpuscular Volume 109 fL High 80-97 59 Mean Corpuscular Hemoglobin 38 pg High 27-31 Mean Corpuscular HGB Conc 35 g/dL 31-36 Red Cell Distribution Width 12 % 10.5-15 Platelet Count 111 10^3/uL Low 150-450 Mean Platelet Volume 8 um3 7.4-10.4 Abs Neutrophils 3.6 10^3/uL 1.5-7.7 Abs Lymphocytes 0.5 10^3/uL Low 1.0-4.8 Abs Monocytes 0.5 10^3/uL 0-0.8 Abs Eosinophils 0 10^3/uL 0-0.6 Abs Basophils 0 10^3/uL 0-0.2 Abs Nucleated RBC 0.01 10^3/uL Neutrophil % 70 % 38-83 Band % 8 % 0-8 Lymphocytes % 16 % Low 25-47 Monocytes % 6 % 0-13 RBC Morphology Normal Normal Laboratory test finding 07/09/2013 LDH 164 U/L 95-185 Laboratory test finding 07/09/2013 Cytology RUN DATE: <SEE NOTE> CBC Auto Diff 04/10/2013 White Blood Count 3.2 10^3/uL Low 4.8-10.8 Red Blood Count 4.08 10^6/uL 4.0-5.4 Hemoglobin 15.2 g/dL 12.0-16.0 Hematocrit 45 % 35-47 Mean Corpuscular Volume 110 fL High 80-97 61 Mean Corpuscular Hemoglobin 37 pg High 27-31 62 Mean Corpuscular HGB Conc 34 g/dL 31-36 Red Cell Distribution Width 12 % 10.5-15 Platelet Count 118 10^3/uL Low 150-450 Mean Platelet Volume 8 um3 7.4-10.4 Abs Neutrophils 2.1 10^3/uL 1.5-7.7 Abs Lymphocytes 0.6 10^3/uL Low 1.0-4.8 Abs Monocytes 0.5 10^3/uL 0-0.8 Abs Eosinophils 0 10^3/uL 0-0.6 Abs Basophils 0 10^3/uL 0-0.2 Abs Nucleated RBC 0 10^3/uL Granulocyte % 64.6 % 38-83 Lymphocyte % 18.0 % Low 25-47 Monocyte % 15.5 % High 1-9 Eosinophil % 1.4 % 0-6 Basophil % 0.5 % 0-2 Nucleated Red Blood Cells % 0 Laboratory test finding 03/11/2013 Magnesium 1.7 mg/dL 1.7-2.6 Basic Metabolic Panel 03/11/2013 Sodium 135 mmol/L 133-145 Potassium 3.9 mmol/L 3.5-5.0 Chloride 100 mmol/L Low 101-111 Co2 Carbon Dioxide 31.0 mmol/L 22-32 Anion Gap 4.0 mmol/L 2-11 Glucose 69 mg/dL Low 70-100 Blood Urea Nitrogen 15 mg/dL 6-24 Creatinine 0.70 mg/dL 0.50-1.40 BUN/Creatinine Ratio 21.4 High 8-20 Calcium 9.1 mg/dL 8.1-9.9 Egfr Non- 84.0 >60 Egfr 108.0 >60 63 CBC Auto Diff 03/11/2013 White Blood Count 2.3 10^3/uL Low 4.8-10.8 Red Blood Count 3.96 10^6/uL Low 4.0-5.4 Hemoglobin 14.9 g/dL 12.0-16.0 Hematocrit 43 % 35-47 Mean Corpuscular Volume 110 fL High 80-97 Mean Corpuscular Hemoglobin 38 pg High 27-31 Mean Corpuscular HGB Conc 34 g/dL 31-36 Red Cell Distribution Width 12 % 10.5-15 Platelet Count 111 10^3/uL Low 150-450 Mean Platelet Volume 8 um3 7.4-10.4 Abs Neutrophils 1.3 10^3/uL Low 1.5-7.7 Abs Lymphocytes 0.5 10^3/uL Low 1.0-4.8 Abs Monocytes 0.4 10^3/uL 0-0.8 Abs Eosinophils 0 10^3/uL 0-0.6 Abs Basophils 0 10^3/uL 0-0.2 Abs Nucleated RBC 0.01 10^3/uL Granulocyte % 57.0 % 38-83 Lymphocyte % 22.7 % Low 25-47 Monocyte % 18.8 % High 1-9 Eosinophil % 1.0 % 0-6 Basophil % 0.5 % 0-2 Nucleated Red Blood Cells % 0.2 Laboratory test finding 02/03/2013 Urine Random Sodium 12 mmol/L Urine Osmolality 136 mOsm/kg Low 300-1000 Osmolality Serum 273 mOsm/kg Low 281-297 Manual Differential 01/27/2013 Neutrophil % 44 % 38-83 Band % 4 % 0-8 Lymphocytes % 31 % 25-47 Monocytes % 18 % High 0-13 Eosinophils % 2 % 0-6 Reactive Lymph % 1 % 0-6 Macrocytosis 2+ Comp Metabolic Panel 01/27/2013 Sodium 130 mmol/L Low 133-145 Potassium 4.0 mmol/L 3.5-5.0 Chloride 94 mmol/L Low 101-111 Co2 Carbon Dioxide 31.0 mmol/L 22-32 Anion Gap 5.0 mmol/L 2-11 Glucose 92 mg/dL 70-100 Blood Urea Nitrogen 6 mg/dL 6-24 Creatinine 0.80 mg/dL 0.50-1.40 BUN/Creatinine Ratio 7.5 Low 8-20 Calcium 9.7 mg/dL 8.1-9.9 Total Protein 7.0 g/dL 6.2-8.1 Albumin 4.6 g/dL 3.2-5.2 Globulin 2.4 g/dL 2-4 Albumin/Globulin Ratio 1.9 1-3 Total Bilirubin 1.0 mg/dL 0.4-1.5 Alkaline Phosphatase 45 U/L 30-110 Alt 32 U/L 14-54 Ast 39 U/L 12-42 Egfr Non- 72.0 >60 Egfr 92.6 >60 64 CBC Auto Diff 01/27/2013 White Blood Count 2.3 10^3/uL Low 4.8-10.8 Red Blood Count 4.20 10^6/uL 4.0-5.4 Hemoglobin 15.3 g/dL 12.0-16.0 Hematocrit 46 % 35-47 Mean Corpuscular Volume 110 fL High 80-97 65 Mean Corpuscular Hemoglobin 36 pg High 27-31 Mean Corpuscular HGB Conc 33 g/dL 31-36 Red Cell Distribution Width 12 % 10.5-15 Platelet Count 102 10^3/uL Low 150-450 Mean Platelet Volume 8 um3 7.4-10.4 Abs Neutrophils 1.2 10^3/uL Low 1.5-7.7 Abs Lymphocytes 0.5 10^3/uL Low 1.0-4.8 Abs Monocytes 0.5 10^3/uL 0-0.8 Abs Eosinophils 0.1 10^3/uL 0-0.6 Abs Basophils 0 10^3/uL 0-0.2 Abs Nucleated RBC 0 10^3/uL Lipid Profile (Trig/Chol/HDL) 01/03/2013 Triglycerides 53 mg/dL 40-200 Cholesterol 163 mg/dL Less than 200 HDL Cholesterol 79 mg/dL High 40-60 66 Cholesterol/HDL Ratio 2.1 Average 1-4.44 LDL Cholesterol 73.4 Less Than 100 67 CBC With Manual Diff 01/03/2013 White Blood Count 2.0 10^3/uL Low 4.8- 10.8 Red Blood Count 4.03 10^6/uL 4.0-5.4 Hemoglobin 15.5 g/dL 12.0-16.0 Hematocrit 44 % 35-47 Mean Corpuscular Volume 110 fL High 80-97 Mean Corpuscular Hemoglobin 38 pg High 27-31 Mean Corpuscular HGB Conc 35 g/dL 31-36 Red Cell Distribution Width 12 % 10.5-15 Platelet Count 118 10^3/uL Low 150-450 Mean Platelet Volume 8 um3 7.4-10.4 Abs Neutrophils 1.0 10^3/uL Low 1.5-7.7 Abs Lymphocytes 0.6 10^3/uL Low 1.0-4.8 Abs Monocytes 0.4 10^3/uL 0-0.8 Abs Eosinophils 0 10^3/uL 0-0.6 Abs Basophils 0 10^3/uL 0-0.2 Abs Nucleated RBC 0 10^3/uL Neutrophil % 57 % 38-83 Band % 1 % 0-8 Lymphocytes % 30 % 25-47 Monocytes % 10 % 0-13 Eosinophils % 2 % 0-6 Macrocytosis 2+ 1 FASTING 10 HOUR 2 FASTING 10 HOUR 3 Because ethnic data is not always readily [...] 15-29 5 Kidney failure <15 (or dialysis) 4 Desirable: <150 Borderline High: 150-199 High: 200-499 Very High: >500 5 Desirable: <200 Borderline High: 200-239 High: >239 6 Low: <40 Desirable: 40-60 High: >60 7 Desirable: <100 Near Optimal: 100-129 Borderline High: 130-159 High: 160-189 Very High: >189 8 Acute inflammation: >10.00 9 [facility] Severe Sepsis and Septic Shock Management Bundle Measure requires all lactic acids initially measuring >2.0 mmol/L be repeated. 10 Please note the change in INR reference range effective 17. 11 >100 to <200 pg/mL: likely compensated congestive heart failure (CHF) 200 to 400 pg/mL: likely moderate CHF >400 pg/mL: likely moderate to severe CHF 12 Because ethnic data is not always readily [...] 15-29 5 Kidney failure <15 (or dialysis) 13 Because ethnic data is not always readily [...] 15-29 5 Kidney failure <15 (or dialysis) 14 Desirable <150 Borderline high 150-199 High 200-499 Very High >500 15 Desirable <200 Borderline high 200-239 High >239 16 Low <40 Desirable: 40-60 High: >60 17 Desirable: <100 mg/dL Near Optimal: 100-129 mg/dL Borderline High: 130-159 mg/dL High: 160-189 mg/dL Very High: >189 mg/dL 18 Because ethnic data is not always readily [...] 15-29 5 Kidney failure <15 (or dialysis) 19 >100 to <200 pg/mL: likely compensated congestive heart failure (CHF) 200 to 400 pg/mL: likely moderate CHF >400 pg/mL: likely moderate to severe CHF 20 SEE RESULT BELOW Name: TRINA KEEN DOB: [address]: Eugenie Hooker MD Acct: [id number] Unit: [id number] AGE: 70 Location: [facility] 453- Re01/29/16 Dis: 01/31/16 SEX: F Status: DIS IN SPEC: [id number] OTONIEL: 01/28/[address] [facility] [address]: Nilam Daily MD REQ: [id number] RECD: 01/28/16 STATUS: COMP JASONHR DR: Daxa James MD _ SOURCE: BLOOD,VENO SPDESC: ORDERED: Blood Cult Procedure Result Reported Site Aerobic Culture Bottle Final 02/02/16- 56 ML No Growth Day 5 Anaerobic Culture Bottle Final 02/02/16- 56 ML No Growth Day 5 * ML - MAIN LAB (PSC1) . END OF REPORT * ML=Testing performed at Main Lab DEPARTMENT OF PATHOLOGY, [address] [place] [address] Luis Chamorro M.D. Director [facility] # [id number] 21 Because ethnic data is not always readily [...] 15-29 5 Kidney failure <15 (or dialysis) 22 Reference Range and Interpretation: TnI (ng/mL) Interpretation Less Than 0.03 ng/mL Not supportive of diagnosis of RI 0.03 - 0.50 ng/mL Indeterminate: suggest serial studies if clinically indicated. Greater than 0.5 ng/mL Consistent with diagnosis of RI 23 Critical Result LACT:2.4 Called to TERESA Olguin at: 09:00:59 by:[id number] Read back by:TERESA ROB Severe Sepsis and Septic Shock Management Bundle Measure requires all lactic acids initially measuring >2.0 mmol/L be repeated. 24 Because ethnic data is not always readily [...] 15-29 5 Kidney failure <15 (or dialysis) 25 A single M isoform is detected. In the context of a normal wrsfa-2-mhaywtkdufd concentration, this is consistent with an MM phenotype. Reviewed by: Ramos Hightower 11/04/2015 3:31 PM 26 Test Performed by: [place] [address] [employer]: Jorge Mckeon II, M.D., Ph.D. 27 Because ethnic data is not always readily [...] 15-29 5 Kidney failure <15 (or dialysis) 28 DO IN 3 MONTHS 29 SEE RESULT BELOW Name: TRINA KEEN : [address]: Vel Dutton MD Acct: [id number] Unit: [id number] AGE: 70 Location: [facility] Re09/17/15 SEX: F Status: REG REF SPEC: [id number] OTONIEL: 09/17/15-[address]: Vel Dutton MD REQ: [id number] RECD: 09/17/15 STATUS: RAAD WILLIAMSON DR: Daxa James MD _ ORDERED: LEVEL IV FINAL DIAGNOSIS Colon, rectum, biopsy: -- Tubular adenoma. -- No high grade dysplasia or malignancy. CLINICAL HISTORY Screening; history of ischemic colitis POST-OPERATIVE DIAGNOSIS Colonoscopy to cecum, excellent prep - severe tortuosity, divertics; 2 mm rectal polyp removed otherwise negative, photos. Rectal polyp, diverticules GROSS DESCRIPTION The specimen is received in formalin labeled, Biopsy Rectal Polyp, and consists of a 0.4 x 0.3 x 0.2 cm sneed polypoid soft tissue fragment, which is inked, bisected and submitted entirely in one cassette. Signed (signature on file) Francy Diaz MD [id number] END OF REPORT * ML=Testing performed at Main Lab DEPARTMENT OF PATHOLOGY, [address] [place] [address] Luis Cahmorro M.D. Director [facility] # [id number] 30 Desirable <150 Borderline high 150-199 High 200-499 Very High >500 31 Desirable <200 Borderline high 200-239 High >239 32 Low <40 Desirable: 40-60 High: >60 33 Desirable: <100 mg/dL Near Optimal: 100-129 mg/dL Borderline High: 130-159 mg/dL High: 160-189 mg/dL Very High: >189 mg/dL 34 Because ethnic data is not always readily [...] 15-29 5 Kidney failure <15 (or dialysis) 35 Consistent with previous results on 02/09/15. 36 Because ethnic data is not always readily [...] 15-29 5 Kidney failure <15 (or dialysis) 37 Reference Range and Interpretation: TnI (ng/mL) Interpretation Less Than 0.03 ng/mL Not supportive of diagnosis of RI 0.03 - 0.50 ng/mL Indeterminate: suggest serial studies if clinically indicated. Greater than 0.5 ng/mL Consistent with diagnosis of RI 38 Normal Range 180 to 914 Indeterminate Range 145 to 180 Deficient Range <145 39 Because ethnic data is not always readily [...] 15-29 5 Kidney failure <15 (or dialysis) 40 Consistent with previous results on 12/18/2014. 41 Consistent with previous results on 11/06/14. 42 Consistent with previous results on 11/06/14. 43 Consistent with previous results on 09/16/14. 44 Because ethnic data is not always readily [...] 15-29 5 Kidney failure <15 (or dialysis) 45 Because ethnic data is not always readily [...] 15-29 5 Kidney failure <15 (or dialysis) 46 Desirable <150 Borderline high 150-199 High 200-499 Very High >500 47 Desirable <200 Borderline high 200-239 High >239 48 Low <40 Desirable: 40-60 High: >60 49 Desirable <100 Near Optimal 100-129 Borderline high 130-159 High 160-189 Very High >189 50 Because ethnic data is not always readily [...] 15-29 5 Kidney failure <15 (or dialysis) 51 AM 8.7-22.4 PM <10 52 AM 8.7-22.4 PM <10 53 AM 8.7-22.4 PM <10 54 RUN DATE: 08/20/13 [facility] LAB LIVE PAGE 1 RUN TIME: [address] [place] [address] Specimen Inquiry Name: TRINA KEEN : [address]: Lena Choudhury MD Acct: [id number] Unit: [id number] AGE: 68 Location: [facility] Re08/18/13 SEX: F Status: REG REF SPEC: [id number] OTONIEL: 08/18/13-[address] [facility] [address]: Lena Choudhury MD REQ: [id number] RECD: 08/18/13 STATUS: COMP _ SOURCE: THROAT SPDESC: ORDERED: Rapid Strep A, Throat Culture, Throat Beta Str QUERIES: Med[employer] Number [id number] Procedure Result Verified Site Rapid Strep A Final 08/18/13- 2028 ML Organism 1 Negative Strep Group A Antigen testing by enzyme immunoassay. The landscape and yardwork laborer and regulatory agencies both recommend that a throat culture for beta strep be performed if a Rapid Group A Strep assay yields a negative result. Therefore a culture will be automatically performed on all negative samples. Throat Culture Final 08/20/13- 1229 ML Organism 1 NORMAL VI Quantity 3+ Throat Beta Strep Culture Final 08/20/13- 0939 ML Negative For Group A Beta Streptococcus END OF REPORT * ML=Testing performed at Main Lab DEPARTMENT OF PATHOLOGY, [facility] [employer] [place] [address] Luis Chamorro M.D. Director [facility] Permit #[id number] 55 RUN DATE: 08/18/13 [facility] LAB LIVE PAGE 1 RUN TIME: [address] [place] [address] Specimen Inquiry Name: TRINA KEEN : [address]: Lena Choudhury MD Acct: [id number] Unit: [id number] AGE: 68 Location: [facility] Re08/18/13 SEX: F Status: REG REF SPEC: [id number] OTONIEL: 08/18/[address]: Lena Choudhury MD REQ: [id number] RECD: 08/18/13 STATUS: RES _ SOURCE: THROAT SPDESC: ORDERED: Rapid Strep A, Throat Culture, Throat Beta Str QUERIES: Med[employer] Number [id number] Procedure Result Verified Site Rapid Strep A Final 08/18/132028 ML Organism 1 Negative Strep Group A Antigen testing by enzyme immunoassay. The landscape and yardwork laborer and regulatory agencies both recommend that a throat culture for beta strep be performed if a Rapid Group A Strep assay yields a negative result. Therefore a culture will be automatically performed on all negative samples. Throat Culture PENDING Throat Beta Strep Culture PENDING END OF REPORT * ML=Testing performed at Main Lab DEPARTMENT OF PATHOLOGY, [facility] [employer] [place], [place] [address] Luis Chamorro M.D. Director [facility] Permit #[id number] 56 RUN DATE: 08/20/13 [facility] LAB LIVE PAGE 1 RUN TIME: 939 [facility] [employer] [place], [place] [address] Specimen Inquiry Name: LEONILATRINA Ivett : [address]: Lena Choudhury MD Acct: [id number] Unit: [id number] AGE: 68 Location: [facility] Re08/18/13 SEX: F Status: REG REF SPEC: [id number] OTONIEL: 08/18/13-[address] [facility] [address]: Lena Choudhury MD REQ: [id number] RECD: 08/18/13 STATUS: RES _ SOURCE: THROAT SPDESC: ORDERED: Rapid Strep A, Throat Culture, Throat Beta Str QUERIES: Medent Number [id number] Procedure Result Verified Site Rapid Strep A Final 08/18/13- 2028 ML Organism 1 Negative Strep Group A Antigen testing by enzyme immunoassay. The landscape and yardwork laborer and regulatory agencies both recommend that a throat culture for beta strep be performed if a Rapid Group A Strep assay yields a negative result. Therefore a culture will be automatically performed on all negative samples. Throat Culture PENDING Throat Beta Strep Culture Final 08/20/13- 0939 ML Negative For Group A Beta Streptococcus END OF REPORT * ML=Testing performed at Main Lab DEPARTMENT OF PATHOLOGY, [address] [place] [address] Luis Chamorro M.D. Director [facility] Permit #[id number] 57 Consistent with previous results. 58 Because ethnic data is not always readily [...] 15-29 5 Kidney failure <15 (or dialysis) 59 Consistent with previous results. 60 RUN DATE: 07/10/13 [facility] LAB LIVE PAGE 1 RUN TIME: [address] [place] [address] Specimen Inquiry Name: TRINA KEEN : [address]: Lena Choudhury MD Acct: [id number] Unit: [id number] AGE: 68 Location: [facility] Re07/09/13 SEX: F Status: REG REF SPEC: [id number] OTONIEL: 07/09/13-[address] [facility] [address]: Lena Choudhury MD REQ: [id number] RECD: 07/09/13 STATUS: SOUT _ ORDERED: IMAGE ANALYSIS FINAL DIAGNOSIS Negative for Intraepithelial lesion or Malignancy A. Ectocervical/Endocervical Specimen Adequacy: Satisfactory of evaluation Transformation zone component identified Patient Information: HPV: Thin Layer Pap Test only (NO HPV TESTING) Actual Specimen Date: 07/09/13 Post Menopausal?: Y Signed (signature on file) Kiera Flores, CT (ASCP) 07/10/13 1227 This Pap test was evaluated with the assistance of the IFTTTPrep Test Imaging System. Due to cytologic findings at the mud worker microscope, comprehensive manual rescreening by a Rod Drawer may be required. The Pap Smear is a screening test designed to aid in the detection of premalignant and malignant conditions of the uterine cervix. It is not a diagnostic procedure and should not be used as the sole means of detecting cervical cancer. Both false- positive and false- negative reports do occur. Depending on your risk status, a Pap smear shoudl be obtained and evaluated every 1-3 years. END OF REPORT * ML=Testing performed at Main Lab DEPARTMENT OF PATHOLOGY, [address] [place] [address] Luis Chamorro M.D. Director [facility] Permit #[id number] 61 Consistent with previous results. 62 Consistent with previous results. 63 Because ethnic data is not always readily [...] 15-29 5 Kidney failure <15 (or dialysis) 64 Because ethnic data is not always readily [...] 15-29 5 Kidney failure <15 (or dialysis) 65 Consistent with previous results. 66 HDL Interpretation: Undesirable: High Risk: Less than 40 mg/dL Desirable: Low Risk: Greater than 60 mg/dL 67 LDL Interpretation: Low Risk Optimal Level: LDL Less than 100 mg/dL Near or Above Optimal: LDL 100-129 mg/dL Borderline High Risk: LDL 130-159 mg/dL High Risk: LDL 160-189 mg/dL Very High Risk: LDL Greater than 189 mg/dL Procedures Date CPT Code Description Status Comment 05/10/2017 92895 EKG, Interpretation Only Completed 05/10/2017 85065 FX TX Inter/Pinky Or Sub Completed Chanteric Femoral FX W/Implant 05/10/2017 65354 FX TX Inter/Pinky Or Sub Completed Chanteric Femoral FX W/Implant 05/03/2016 97242 Holter Monitor Review (24 Completed hr)dr shea & aubrie only 05/02/2016 74952 ECG Monitor/Recording W/Visual Completed Superimposition Scanning 05/02/2016 78332 Stress Test Completed 05/02/2016 45899 Myocardial Perfusion Imaging Completed Tomographic (Spect) Multiple Studies 04/21/2016 05648 EKG Tracing & Completed Interpretation 01/31/2016 54032 ECHO Transthorasic Realtime 2D Completed W Doppler & Color Flow Hosp 10/27/2015 76414 Diffusing Capacity Completed 10/27/2015 54225 Plethysmography Determination Completed Lung Volumes & Per Airway Resist 10/27/2015 06647 Pulmonary Completed Function><Bronchodil 09/20/2015 Colonoscopy Completed tubular adenoma, f/u 5 yr depending on overall health Document: 09/17/15 - Colonoscory with Biopsy 02/23/2015 54943 Pulmonary Completed Function><Bronchodil 02/23/2015 47217 Plethysmography Determination Completed Lung Volumes & Per Airway Resist 02/17/2015 56542 EEG Recording Awake & Completed Asleep 11/11/2014 Bone Mineral Density Test Completed 11/11/2014 Mammogram Completed 11/27/2013 59341 Removal Devitalization Tissue Completed Wound Less Than Equal 20 Square CM 11/20/2013 29616 Removal Devitalization Tissue Completed Wound Less Than Equal 20 Square CM 09/16/2013 32026 EKG, Interpretation Only Completed 09/03/2013 40340 EKG Tracing & Completed Interpretation 09/25/2012 19192 ECHO Transthoracic, Real-Time Completed 2D With Doppler And Color Flow 09/18/2012 88591 Stress Test Completed 09/18/2012 65730 Myocardial Perfusion Imaging Completed Tomographic (Spect) Multiple Studies 09/11/2012 61439 EKG Tracing & Completed Interpretation Encounters Type Date Location Provider CPT E/M Dx Office Visit 10/29/2017 Pul[facility] [address] J44.9 1:45p Services Of [facility] R09.02 Office Visit 10/12/2017 11:00a [facility] Internal Medicine Daxa Jacob, 27591 Z00.00 - Dong Wagoner76.32 E03.9 M81.0 J44.9 I10 D70.9 Office Visit 09/21/2017 10:30a [place] [address] S72.142A Of John L76.32 Office Visit 05/29/2017 11:11a [facility] [address] J44.1 Services Of [facility] A49.8 Z99.81 Office Visit 05/14/2017 7:04a [facility], Eugenie Bland, 46881 J43.9 Hospitalists Dean I25.10 R33.0 S72.002A Office Visit 05/10/2017 7:02a [facility],pc Lele Harris, 61374 J43.9 Hospitalists M.D. I25.10 S72.002A I10 Office Visit 05/09/2017 7:01a [facility],pc Ann Mcgarry, 90918 J43.9 Hospitalists M.D. I25.10 S72.002A I10 Office Visit 05/09/2017 12:16p [place] [address] S72.142A Of C.M.A. Office Visit 03/27/2017 10:40a [facility] Internal Daxa James 02604 F41.9 Medicine - Dong Moran I10 R05 E03.9 D70.9 Office Visit 03/01/2017 1:15p [facility]ology [facility] Sleep Muna Castaneda MD G9695 J44.9 Services Of [facility] R09.02 R06.00 F41.9 Z79.899 Office Visit 02/22/2017 10:40a [facility] Internal Medicine Daxa James 64373 F41.9 - Dong Moran J44.1 D70.9 Office Visit 08/25/2016 10:40a [facility] Internal Medicine Daxa James 33856 Z00.00 - Dong Moran I10 D70.9 E03.9 F41.9 Office Visit 08/01/2016 10:00a [facility] [place] [address] J44.9 Services Of [facility] Office Visit 05/30/2016 10:40a [facility] Internal Medicine Daxa James 49317 F06.4 - Dong Moran R00.2 I10 D70.9 Office Visit 05/17/2016 9:30a [facility] [place] [address] J44.1 Services [facility] F06.4 J96.10 Office Visit 04/28/2016 11:40a [facility] Internal Medicine Daxa James M.D. 87158 Z23 - Dong R06.02 G47.00 R00.2 I10 Office Visit 04/21/2016 4:40p [facility] Internal Medicine Daxa James 85353 R06.02 - Dong Moran I10 J44.1 Office Visit 02/14/2016 11:45a [facility] [place] [address] J44.1 Services [facility] Office Visit 02/08/2016 10:20a [facility] Internal Medicine Dxaa James, 15070 J44.1 - Dong Moran D72.819 E87.5 Office Visit 01/31/2016 9:08a [facility], Eugenie Bland, 41431 J44.1 Hospitalists Dean I10 E78.0 E03.9 Office Visit 01/30/2016 9:07a [facility], Eugenie Bland, 03162 J44.1 Hospitalists Dean I10 Office Visit 01/29/2016 9:07a [facility], Eugenie Bland, 20258 J44.1 Hospitalists Dean I10 E78.0 Office Visit 01/28/2016 9:06a [facility], Annmarie Freeman, [place] 39142 J44.1 Hospitalists I10 E78.0 E03.9 Office Visit 11/23/2015 10:00a [facility] Internal Medicine Daxa James M.D. 00104 I10 - Dogn D72.819 E03.9 L72.0 Office Visit 11/16/2015 10:00a [facility] [place] [address] J44.9 Services [facility] Office Visit 10/12/2015 2:00p [facility] [place] [address] J44.9 Services [facility] Office Visit 08/24/2015 1:20p [facility] Internal Medicine Daxa James 20112 Z00.00 - Dong Moran Z87.891 J44.1 D72.819 I10 Z12.11 E03.9 Office Visit 07/13/2015 10:00a [facility] Internal Medicine Daxa James 04190 J44.1 - Dong Moran D72.819 R60.0 Z23 Office Visit 07/06/2015 11:42a [facility], Lele Harris 67982 J44.1 Hospitalists Dean E03.9 Office Visit 07/05/2015 11:38a [facility], Albin Hernandez M.D. 26613 J44.1 Hospitalists E03.9 Office Visit 06/23/2015 9:20a [facility] Internal Medicine Daxa James 36689 J18.9 - Dong Moran R60.0 M76.62 Office Visit 06/03/2015 9:20a [facility] Internal Medicine Daxa James 92449 J44.9 - Dong Moran D72.819 E03.9 I10 Office Visit 02/09/2015 1:20p [facility] Internal Medicine Daxa James 29339 288.50 - Dong Moran 496 244.9 Office Visit 02/09/2015 9:45a [facility] Constance Berry, 63164 288.50 Services Of Power Moran 345.00 Office Visit 11/06/2014 1:40p [facility] Internal Medicine Daxa James 97990 288.00 - Dong Moran 496 V03.82 Office Visit 08/10/2014 10:20a [facility] Internal Medicine Daxa James 23589 V70.0 - Dong Moran 244.9 496 627.9 V76.12 288.50 Office Visit 06/05/2014 9:40a [facility] Internal Medicine Daxa James M.D. 19380 496 - [place] 195.0 244.9 272.2 401.1 V04.81 Office Visit 02/05/2014 8:45a [facility] Constance Berry, 59168 345.90 Services Of Power Daniel.Jean Claude Office Visit 12/26/2013 11:20a [facility] Internal Medicine Lena Choudhury M.D. 76122 195.0 - [place] 496 Office Visit 12/04/2013 11:16a [facility], 87954 998.32 [facility] Dean Office Visit 12/03/2013 11:20a [facility] Internal Medicine Lena Choudhury M.D. 52275 195.0 - [place] Office Visit 11/20/2013 10:51a [facility], 53856 998.32 [facility] Dean Office Visit 11/03/2013 10:00a [facility] Internal Medicine Lena Choudhury M.D. 79088 496 - [place] 783.21 311 401.1 Office Visit 09/29/2013 9:00a [facility] Internal Medicine - Lena Choudhury M.D. 97897 195.0 [place] 496 Office Visit 09/17/2013 4:57p [facility], Ashu Baldwin M.D. 39690 195.0 Hospitalists 492.8 276.1 Office Visit 09/16/2013 4:56p [facility], Ashu Baldwin M.D. 18136 195.0 Hospitalists 492.8 276.1 Office Visit 09/15/2013 4:56p [facility],rachel Baldwin M.D. 81886 195.0 Hospitalists 492.8 276.1 518.0 Office Visit 09/14/2013 4:55p [facility],rachel Baldwin M.D. 75474 195.0 Hospitalists 492.8 276.1 345.10 Office Visit 09/13/2013 4:54p [facility], Ashu Baldwin M.D. 98179 195.0 Hospitalists 492.8 401.9 345.10 Office Visit 09/03/2013 11:40a [facility] Internal Medicine - Lena Choudhury M.D. 89950 230.0 [place] 496 V72.84 V03.82 V04.81 794.31 Office Visit 08/18/2013 3:20p [facility] Internal Medicine - Lena Choudhury M.D. 48050 288.50 [place] 496 462 784.2 Office Visit 08/08/2013 11:40a [facility] Internal Medicine - Lena Choudhury M.D. 83839 466.0 [place] 288.50 496 785.6 Office Visit 07/09/2013 9:40a [facility] Internal Medicine - Lena Choudhury M.D. 08975 V72.31 [place] V76.10 V76.2 783.21 496 288.50 401.9 683 466.0 627.9 V70.0 Office Visit 06/10/2013 9:45a [facility] Constance Berry, 33376 345.10 [facility] M.D. 288.50 E936.3 Office Visit 05/14/2013 9:00a [facility] Internal Medicine - Lena Choudhury M.D. 49565 496 [place] Office Visit 02/28/2013 1:40p [facility] Internal Medicine - Lena Choudhury M.D. 64522 496 [place] 783.21 276.1 Office Visit 01/24/2013 11:20a [facility] Internal Medicine - Lena Choudhury M.D. 64357 789.01 [place] 288.50 496 414.0 Office Visit 12/05/2012 9:45a [facility] Constance Berry, 70047 345.90 Services Of [employer] M.Jean Claude 288.50 Office Visit 09/27/2012 10:30a [facility], 84096 785.1 [facility] M.DCorbin 786.05 Office Visit 09/11/2012 1:00p [facility] Jean Claude [facility], 18227 786.50 [facility] M.DCorbin 786.05 785.1 Office Visit 06/06/2012 11:45a [facility] Constance Berry, 23525 780.39 [facility] María.Jean Claude 288.50 Plan of Care Future Appointment(s):05/01/2018 10:30 am - Muna Castaneda MD at [facility]01/14/2018 10:20 am - Daxa James M.D. at [facility] Internal Medicine [facility]10/29/2017 - Muna Castaneda MDJ44.9 Chronic obstructive pulmonary disease, unspecifiedFollow up:6 zvfuknJ55.02 HypoxemiaNew Medication:Oxygen
[2017-11-24] MEDS ORDERED: Morphine VIAL* 4 MG/ML VIAL (1 ml vial) IV ONE ×2 (12:27→13:49)
--- NOTE | 2017-11-24 13:24 | RAD ---
Indication: RIGHT shoulder pain and edema post fall. Comparison: No relevant prior exams available on the [facility] PACS for comparison. Technique: AP and scapular Y views of the RIGHT shoulder. Near complete occlusion of the humerus in the pakmp-bt-akil. REPORT AND IMPRESSION: Mildly impacted surgical neck fracture of the humerus with severe varus angulation. Overlying soft tissue swelling. The humeral head remains normally located at the glenoid. Normal acromioclavicular joint alignment.
--- NOTE | 2017-11-24 13:28 | RAD ---
Indication: Pelvis and RIGHT thigh pain post fall. Comparison: September 21, 2017 Technique: AP pelvis and AP and crosstable lateral views of the RIGHT hip and entire femur. Report: Bone density appears decreased throughout. Subcapital femoral neck fracture with mild impaction and slight valgus angulation. The femoral head remains located at the acetabulum. No additional fracture of the femur or pelvis evident. Negative for pelvic joint diastases. Healing response at the internally fixed LEFT intertrochanteric femur fracture with unchanged abundant callus formation and surrounding dystrophic bone formation compared with the September 21, 2017 exam. IMPRESSION: Subcapital femoral neck fracture with mild impaction and slight valgus angulation. The femoral head remains located at the acetabulum. No additional fracture of the femur or pelvis evident.
[2017-11-24 14:34] LABS: ABS Basophils 0 10^3/ul (0-0.2); ABS Eosinophils 0 10^3/ul (0-0.6); ABS Lymphocytes 0.3 10^3/ul (1.0-4.8); ABS Monocytes 0.8 10^3/ul (0-0.8); ABS Neutrophils 10.1 10^3/ul (1.5-7.7); ABS Nucleated RBC 0 10^3/ul; Eosinophil % 0.2 % (0-6); Hematocrit 32 % (35-47); Lymphocyte % 2.5 % (25-47); Mean Corpuscular HGB Conc 35 g/dl (31-36); Mean Corpuscular Hemoglobin 36 pg (27-31); Mean Corpuscular Volume 103 fL (80-97); Mean Platelet Volume 6.9 um3 (7.4-10.4); Nucleated Red Blood Cells % 0; Platelet Count 134 10^3/ul (150-450); Red Blood Count 3.06 10^6/ul (4.0-5.4); Red Cell Distribution Width 13 % (10.5-15); White Blood Count 11.2 10^3/ul (3.5-10.8)
[2017-11-24 14:51] LABS: EGFR Non-African American 157.8 (>60)
[2017-11-24 14:53] LABS: INR 1.01 (0.77-1.02)
[2017-11-24] MEDS ORDERED: Albuterol 2.5 MG/3 ML NEB.SOL* (0.083%) INH PRN (15:19)
[2017-11-24] MEDS ORDERED: Acetaminophen TAB* 325 MG PO PRN (15:19)
[2017-11-24] MEDS ORDERED: Ondansetron INJ* 2 MG/ML VIAL IV PRN (15:19)
--- NOTE | 2017-11-24 15:36 | RAD ---
Indication: Raynaud's disease of the heart, hands, and feet severe. Oxygen dependent. COPD. Comparison: May 25, 2017 Technique: Upright AP 1444 hours Report: Severely elevated lung volumes. Rarefaction of interstitial markings. No focal pulmonary lesion, compelling alveolar consolidation, pleural effusion, pneumothorax. The heart, pulmonary vasculature, and mediastinal contours are unremarkable. Healed RIGHT seventh, eighth, and ninth rib fractures. Acute surgical neck fracture of the RIGHT humerus with severe varus angulation. IMPRESSION: 1. Stigmata of advanced chronic obstructive pulmonary disease and emphysema. 2. Acute surgical neck fracture of the RIGHT humerus with severe varus angulation.
--- NOTE | 2017-11-24 16:50 | PN ---
Progress Note - Progress Note Date of Service: 11/24/17 Note: Full consult note dictated. A/P: 1. Right displaced femoral neck fracture: plan for right hip hemiarthroplasty, potentially tomorrow in AM. Npo please. 2. Right displaced varus proximal humerus fracture: given her polytrauma, surgery would help her mobilize and give her a stable arm. We decide after we see how she does with the hip surgery but for now I would plan on ORIF a few days after the hip surgery 3. Right elbow U-shaped large skin tear/laceration: rinsed and closed with 4 4- 0 nylon sutures.
[2017-11-24 17:25] LABS: Urine Appearance Cloudy; Urine Blood Negative (Negative); Urine Color Yellow; Urine Ketones Negative (Negative); Urine Protein Negative (Negative); Urine Urobilinogen Negative (Negative)
[2017-11-24] MEDS: Morphine VIAL* 4 MG/ML VIAL (1 ml vial) IV PRN ×2 (17:51→21:57)
--- NOTE | 2017-11-24 19:10 | HP ---
CC: Dr. James; Dr. Carranza * HISTORY AND PHYSICAL: DATE OF ADMISSION: 11/24/17 PRIMARY CARE PROVIDER: Dr. James. CONSULTING ORTHOPEDIST: Dr. Carranza. ATTENDING PHYSICIAN WHILE IN THE HOSPITAL: Dr. Last * (report dictated by Luis Armando Hurtado NP). CHIEF COMPLAINT: Fall. HISTORY OF PRESENT ILLNESS: Ms. Cabello is a 72-year-old female patient. She carries a history of hypothyroidism, hypertension, hyperlipidemia, anxiety, depression, COPD, CAD, MS in 1995. She has a history of mouth cancer. She comes in to our emergency department today. She says that she was at a [employer] today. 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 She, unfortunately, was walking back to her car, she caught her foot on the driveway and she fell, landing on her right side. She was helped up, got into her 's truck, and they drove her to the home, and he called 911 as he was concerned because when she stood up, she could not walk. She was having significant amount of pain. She denies any chest pain or shortness of breath prior to or after this fall. She said she has significant pain in the shoulder and in the right leg. She denies any recent cough, fevers, or chills. No abdominal pain. There has been no nausea or vomiting. There has been no diarrhea. She said that she remembers the fall , did not hit her head. She knew where she was. She just caught her foot. The patient was concerned and they came in to the ED, was found to have right humerus and right hip fracture. We were asked to evaluate for admission. PAST MEDICAL HISTORY: Significant for: 1. Hypothyroid. 2. Hypertension. 3. Hyperlipidemia. 4. Anxiety. 5. Depression. 6. COPD. 7. CAD. 8. Raynaud's. 9. History of mouth cancer. PAST SURGICAL HISTORY: 1. She has had a left neck lymph node resection and salivary gland resection and tumor resection for her mouth cancer. 2. She has had left hip ORIF in April of 2017. MEDICATIONS: Home medications include: 1. Zoloft 50 mg p.o. daily. 2. Toprol-XL 75 mg p.o. daily. 3. Aspirin 81 mg daily. 4. Xanax 0.25 mg p.o. daily to four times a day as needed. 5. Lipitor 10 mg p.o. daily. 6. DuoNeb 1 neb inhaler every 6 hours as needed. 7. Combivent 1 puff inhaled every 6 hours. She is actually taking that as needed. 8. 80 mg daily. 9. Synthroid 50 mcg daily. 10. Symbicort 2 puffs inhaled b.i.d. ALLERGIES TO MEDICATIONS: Include BUPROPION, CIPRO, LAMICTAL, KEPPRA, LEVAQUIN , ATIVAN, MORPHINE, PROCARDIA, TOPAMAX, ZONISAMIDE. FAMILY HISTORY: Mother had a history of hypertension and COPD. Father had CHF , hypertension, and COPD. SOCIAL HISTORY: She is a former smoker. She quit about 20 years ago. She does drink wine about 4 to 5 glasses a night. Surrogate decision maker is her , Eloy. REVIEW OF SYSTEMS: There is no documented fever. She denied any significant weight change. There is no double vision. There is no ear discharge. She denies having any rhinorrhea. There is no sore throat. No thyroid enlargement. Denies having any chest pain. There is no orthopnea, there is no nocturnal dyspnea. She denies having any abdominal pain. There was no nausea, there was no vomiting. No dysuria, no frequency. She denied any loss of consciousness. No pruritus and no skin ulcerations. Review of 14 systems was completed. PHYSICAL EXAMINATION GENERAL: At this time, Ms. Cabello is 72-year-old female patient. She is sitting in the ED stretcher. She is cachectic. She appears to be chronically ill- appearing. She does not appear to be in any acute distress. VITAL SIGNS: When she came in, blood pressure was 179/92, blood pressure now is 117/70; heart rate 72; respirations 18; O2 sat 100%; temperature 97.3. HEENT: Head: Atraumatic, normocephalic. Eyes: EOMs intact. Sclerae anicteric and not pale. Throat: Oral mucosa appears to be moist. No oropharyngeal erythema. NECK: Supple. LUNGS: Diminished throughout. They are diminished at the bases. She has equal diaphragmatic expansion. HEART: Sounds S1, S2. Regular rate and rhythm. No murmurs, rubs, or gallops. ABDOMEN: Soft, flat, nontender. Bowel sounds are present. EXTREMITIES: Pulses were 2+ throughout. Distal CSM checks were noted in the right upper extremity and to the right lower extremity. NEUROLOGICAL: She is awake, she is alert, she is oriented x3. Acid Changer equal. Tongue midline. She had no gross focal deficits. SKIN: She has a significant skin tear noticed in the back of her right arm at this point, otherwise it is intact. She does have ecchymosis on the right side. DIAGNOSTIC STUDIES/LAB DATA: WBC 11.2, RBC of 3.06, hemoglobin 11.0, hematocrit 32, platelet count 134. INR 1.01, PTT of 30. Her sodium was 128 which is right near her baseline, potassium 4.0, chloride 92, bicarb 27, BUN 12 , creatinine 0.40, glucose 129, calcium 8.8. Total bili 0.7, AST 40, ALT 32, alk phos 80. Troponin was 0. Albumin of 3.7. She did have multiple imaging here in the ED. She had a femur x-ray and pelvis x- ray, impression was read as subcapital femoral neck fracture with mild impaction and slight valgus angulation. The femoral head remains located at the acetabulum, no additional fracture of the femur or pelvis evident. The shoulder x-ray, impression: Mildly impacted surgical neck fracture of the humerus with severe varus angulation, overlying soft tissue swelling. The humeral head remains normally located at the glenoid. Normal acromioclavicular joint. Chest x-ray was obtained today, again I do see the humerus neck fracture. There are no effusions or infiltrates or pulmonary edema. She does appear to have COPD based on this film. EKG: Normal sinus rhythm, rate of 72. No ST elevations or T-wave inversions were noted. Old medical records were reviewed. ASSESSMENT AND PLAN: Ms. Cabello is a 72-year-old female patient coming to her ER today with complaints of mechanical fall with significant medical problems. On evaluation, she was found to have again right hip fracture and right humerus fracture. We were asked to evaluate for admission. She will be admitted under inpatient status for: 1. Right humerus and hip fracture. At this time, I touched base with Dr. Carranza. He is evaluating the patient today. She is high risk for surgery. Her RCRI is 0.9; however, her biggest risk is her pulmonary status. She has significant chronic obstructive pulmonary disease, which places her at risk for pulmonary complications. The family is aware of this and requesting surgical repair, but again we will need to have Anesthesia weigh in. She is medically optimized, her EKG is stable and her chest x-ray shows no acute pathology. So, at this point, I would recommend aggressive pulmonary toileting postoperatively and we will continue to follow. 2. Hypothyroidism. Continue Synthroid. 3. Hypertension. She did state that the last few weeks her blood pressures are running in the 200s. We will follow this. If we need to, we can add Norvasc at night, but I would like to monitor this and get reading here before starting the medication and we will continue to follow. We will continue her other meds. 4. Hyperlipidemia. Continue statin therapy. 5. Anxiety and depression. Continue meds as prescribed. 6. Chronic obstructive pulmonary disease. Again, I have ordered p.r.n. albuterol. We will continue her Symbicort and we will continue to follow. 7. Coronary artery disease and myocardial infarction. She is on statin, beta ruby, and aspirin. We will continue with this. 8. Raynaud's. Continue with supportive care. 9. History of mouth cancer. Again, follow with her PCP. 10. Code status. She wishes to be a full code. 11. Fluids, electrolytes, and nutrition. She can have a regular diet. TIME SPENT: On the admission was 60 minutes, greater than half that time was spent [id number] with the patient obtaining my history and physical; other half the time was spent going over the plan of care with the patient and implementing the plan of care. I did discuss the plan of care with my attending, Dr. Last, she is in agreement. LUIS ARMANDO HURTADO, HAYDEN [id number]/[facility] #: [id number] MENDOZA
[2017-11-24] MEDS: PTO:Albuterol/Ipratropium RESP(NF) MDI (Combivent Respimat) INH PRN (20:35)
[2017-11-24] MEDS: PTO:Budesonide/Formote 160/4.5(NF) MDI INH SCH (20:35)
[2017-11-24] MEDS: Heparin VIAL(*) 5000 UNITS/ML VIAL (FIVE THOUSAND) SUBCUT SCH (21:57)
[2017-11-24] MEDS: Cyclobenzaprine TAB* 10 MG PO PRN (22:09)
[2017-11-24] MEDS: ALPRAZolam TAB* 0.25 MG PO PRN (22:11)
--- NOTE | 2017-11-24 22:45 | CONS ---
CONSULTATION REPORT: DATE OF CONSULT: 11/24/17 CHIEF COMPLAINT: Right hip and shoulder fractures. HISTORY OF PRESENT ILLNESS: Trina is 72 years old. She is recently recovering from a left hip fracture and that was treated with a short gamma nail by Dr. Campos. That was in April of 2017. She did get through this and has recently been doing better. She is on oxygen due to severe COPD. When she is not on oxygen, she says with activity, her sats will go down into the high 80s. 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 She came to the emergency room where x-rays were done and a displaced, highly varus, proximal humerus fracture was noted and a displaced femoral neck fracture was noted as well. She was seen by the medical service and admitted, and I was consulted for evaluation of her fractures. She denies pain anywhere other than the right shoulder and the right hip. She did sustain a skin tear on the posterior elbow and that has been dressed. PAST MEDICAL HISTORY: 1. Oxygen-dependent COPD. 2. History of coronary artery disease with a questionable LA back in 1995. She follows with Dr. Nair. 3. Hypertension. 4. Dyslipidemia. 5. History of mouth cancer. 6. Hypothyroidism. PAST SURGICAL HISTORY: Left hip gamma nail. MEDICATIONS: Her home medications include: 1. Xanax. 2. Aspirin. 3. Symbicort. 4. Synthroid. 5. Toprol. 6. Zoloft. ALLERGIES: LEVAQUIN, CIPRO, LAMICTAL, ATIVAN, NIFEDIPINE, TOPAMAX, and KEPPRA. SOCIAL HISTORY: She is a former smoker. She lives at home with her . She has a daughter in town. She denies alcohol or drug abuse. REVIEW OF SYSTEMS: A full review of systems was conducted, and she denies anything other than right hip and shoulder pain. PHYSICAL EXAM: Afebrile. Vital signs are stable. General: Awake and alert, very mild distress. HEENT: Normocephalic, atraumatic. Normal facies. She easily converses with me. Respiratory: She does have oxygen in place. She is breathing with normal respiratory effort. Abdomen: Soft, nondistended. Musculoskeletal: She has a bruised and swollen and deformed right shoulder. She is able to move the fingers and open and close the hand. The right lower extremity sits in low shortened and in external rotation. She is able to wiggle the toes up and down. She has a skin tear on the posterolateral right elbow with some bleeding on to the dressing. She has well-healed surgical incisions on the left hip. She does have a bit of what feels like a chronic hematoma under the incisions, some of the heterotopic ossification is palpable. She is quite thin. DIAGNOSTIC STUDIES/LAB DATA: Imaging: I reviewed her x-rays of the right hip and this shows a displaced subcapital femoral neck fracture. The remainder of the femur x-ray and pelvis x-ray is unremarkable. Her shoulder x-rays show a proximal humerus fracture through the surgical neck. It is difficult to say for sure how displaced if the tuberosities are involved , is in a lot of varus. IMPRESSION: 1. Polytrauma. 2. Right displaced subcapital femoral neck fracture. 3. Right displaced varus proximal humerus fracture. PLAN: I talked to Trina about her options. These would include for the femur, a right hip hemiarthroplasty. I did briefly discuss a total hip arthroplasty with her; however, due to her use of chronic oxygen and recent history of multiple falls, I think that the better thing to do would be to give her the most stable hip possible and minimize surgical time. I think that should do well for her for many years to come. She did not have any hip pain prior to the fall. With regards to the right shoulder fracture, I think that given the amount of displacement and varus and displacement that the fracture is in, this would probably do better with reduction and fixation. It was an excellent shoulder before the fall. In addition, I think that will help her to be able to mobilize sooner. Certainly, she understands that there is a risk of surgery and anesthesia given the fact that she is oxygen dependent. She understands the risks of respiratory complications. I have spoken to Luis Armando Hurtado NP, with the hospitalist service. He does not feel like there is anything further that warrants workup from a medical standpoint. I have spoken with her anesthesiologist in the operating room. We will plan for to begin first with the hip, as I think that is the larger fracture and that she will be better if we get that stable. So, the plan will be for right hip hemiarthroplasty. If she does well with that, I discussed following that up with fixation of the right shoulder to hopefully improve the function in the shoulder, but also allow her to mobilize sooner; however, we would wait until she is recovered from the right hip surgery prior to doing that. [id number]/[facility] #: [id number] MTDD
[2017-11-25] MEDS ORDERED: Albuterol/Ipratropium RESP(NF) MDI (Combivent Respimat) INH SCH
[2017-11-25] MEDS: Morphine VIAL* 4 MG/ML VIAL (1 ml vial) IV PRN ×6 (02:13→15:18)
[2017-11-25] MEDS: Levothyroxine TAB* 50 MCG TAB PO SCH (05:20)
[2017-11-25] MEDS: Heparin VIAL(*) 5000 UNITS/ML VIAL (FIVE THOUSAND) SUBCUT SCH ×2 (05:30→16:47)
[2017-11-25] MEDS ORDERED: NS 0.9% 1000 ML* 1,000 ML IV SCH (05:38)
[2017-11-25 05:39] LABS: ABS Basophils 0 10^3/ul (0-0.2); ABS Eosinophils 0 10^3/ul (0-0.6); ABS Lymphocytes 0.3 10^3/ul (1.0-4.8); ABS Monocytes 0.7 10^3/ul (0-0.8); ABS Neutrophils 4.6 10^3/ul (1.5-7.7); ABS Nucleated RBC 0 10^3/ul; Eosinophil % 0.6 % (0-6); Hematocrit 28 % (35-47); Hemoglobin 10.2 g/dl (12.0-16.0); Mean Corpuscular HGB Conc 36 g/dl (31-36); Mean Corpuscular Hemoglobin 37 pg (27-31); Mean Corpuscular Volume 104 fL (80-97); Mean Platelet Volume 6.8 um3 (7.4-10.4); Nucleated Red Blood Cells % 0; Platelet Count 105 10^3/ul (150-450); Red Blood Count 2.74 10^6/ul (4.0-5.4); Red Cell Distribution Width 13 % (10.5-15); White Blood Count 5.6 10^3/ul (3.5-10.8)
[2017-11-25 05:56] LABS: EGFR Non-African American 145.2 (>60)
[2017-11-25 06:00] LABS: INR 0.97 (0.77-1.02)
[2017-11-25] MEDS: PTO:Budesonide/Formote 160/4.5(NF) MDI INH SCH ×2 (07:31→19:59)
[2017-11-25] MEDS: Sertraline* 50 MG TAB PO SCH (07:32)
[2017-11-25] MEDS: Metoprolol Succinate XL TAB* 50 MG PO SCH (07:33)
--- NOTE | 2017-11-25 08:12 | ED ---
Keenan Roberts Tecjoon, scribed for Nathalia Kelly MD on 11/24/17 at 1217 . Upper Extremity Pain - HPI Summary HPI Summary: This patient is a 72 year old female presenting to [facility] accompanied by with a chief complaint of mechanical fall an hour ago. Patient states she is recovering from a broken hip injury and fell onto her right side in her drive way. Patient hit her right shoulder and hip. Patient denies head trauma or any LOC. The pain is rated 8/10 in severity. Symptoms aggravated by nothing. Symptoms alleviated by nothing. The patient treated the sx with nothing [employer]. Patient additionally reports right shoulder pain and right hip pain, skin tear on right elbow. Patient denies chest pain, SOB - History of Current Complaint Chief Complaint: EDShoulderClavicleInj Stated Complaint: FALL/SHOULDER THIGH PAIN Time Seen by Provider: 11/24/17 11:36 Hx Obtained From: Patient Hx Last Menstrual Period: 07/30/1999 Mechanism Of Injury: Fall From A Standing Position Onset/Duration: Started Hours Ago, Still Present Timing: Constant Severity Currently: Moderate Pain Location: Shoulder, Elbow Aggravating Factor(s): Nothing Alleviating Factor(s): Nothing Associated Signs & Symptoms: Positive: Negative - chest pain, SOB, Other - right shoulder pain and right hip pain, skin tear on right elbow - Allergies/Home Medications Allergies/Adverse Reactions: Allergies Allergy/AdvReac Type Severity Reaction Status Date / Time bupropion Allergy Rash Verified 11/24/17 12:17 lamotrigine [From Lamictal] Allergy Rash Verified 11/24/17 12:17 levofloxacin Allergy Swelling Verified 11/24/17 12:17 zonisamide Allergy decreases Verified 11/25/17 02:17 WBCs ciprofloxacin AdvReac Muscle Ache Verified 11/25/17 02:17 levetiracetam [From Keppra] AdvReac decreases Verified 11/25/17 02:17 WBCs lorazepam [From Ativan] AdvReac Altered Verified 11/25/17 02:17 Mental Status morphine AdvReac Hallucinati Verified 11/25/17 02:17 ons nifedipine [From Procardia] AdvReac Rash Verified 11/25/17 02:17 topiramate AdvReac Tachycardia Verified 11/25/17 02:17 Home Medications: Home Medications ALPRAZolam TAB* [Xanax TAB*] 0.25 mg PO .QD-QID PRN MDD 1 mg 11/24/17 [History Confirmed 11/24/17] Albuterol/Ipratropium NEB.LINETTE* [Duoneb (Albuterol 2.5 MG/Ipratropium 0.5 MG)] 1 neb INH Q6H PRN 11/24/17 [History Confirmed 11/24/17] Albuterol/Ipratropium RESP(NF) [Combivent Respimat(NF)] 2 puff INH QID PRN 11/24 [History Confirmed 11/24/17] Aspirin 81 mg CHEW TAB* [Aspirin Low Dose TAB*] 81 mg PO DAILY 11/24/17 [ History Confirmed 11/24/17] Atorvastatin* [Lipitor*] 10 mg PO DAILY 11/24/17 [History Confirmed 11/24/17] Levothyroxine TAB* [Synthroid TAB*] 50 mcg PO DAILY 11/24/17 [History Confirmed 11/24/17] Metoprolol Succinate XL TAB* [Toprol XL TAB*] 75 mg PO DAILY 11/24/17 [History Confirmed 11/24/17] Sertraline* [Zoloft*] 50 mg PO DAILY 11/24/17 [History Confirmed 11/24/17] Valsartan TAB* [Diovan TAB*] 80 mg PO DAILY 11/24/17 [History Confirmed 11/24/17 ] PMH/Surg Hx/FS Hx/Imm Hx Previously Healthy: No Endocrine/Hematology History: Reports: Hx Thyroid Disease - radiation induced hypothyrodism Denies: Hx Anticoagulant Therapy, Hx Blood Disorders, Hx Bone Marrow Disease , Hx Diabetes, Hx Systemic Lupus Erythematosus, Hx Sickle Cell Disease, Hx Anemia, Hx Unexplained Bleeding, Other Endocrine/Hematological Disorders Cardiovascular History: Reports: Hx Hypercholesterolemia - previously, Hx Hypertension, Other Cardiovascular Problems/Disorders - Raynauds disease of heart, hands and feet, severe Denies: Hx Aneurysm, Hx Angina, Hx Angioplasty, Hx Auto Implanted Cardiovert Defib, Hx Cardiac Arrest, Hx Cardiomegaly, Hx Congenital Heart Disease, Hx Congestive Heart Failure, Hx Coronary Artery Disease, Hx Deep Vein Thrombosis, Hx Embolism, Hx Hypotension, Hx Pacemaker/ICD, Hx Peripheral Vascular Disease, Hx Rheumatic Fever, Hx Syncope, Hx Valvular Heart Disease Respiratory History: Reports: Hx Chronic Bronchitis, Hx Chronic Obstructive Pulmonary Disease (COPD) - 2L O2 at all times [employer], Hx Pneumonia Denies: Hx Asthma, Hx Cystic Fibrosis, Hx Lung Cancer, Hx Pleural Effusion, Hx Pulmonary Edema, Hx Pulmonary Embolism, Hx Sleep Apnea Comment Only: Other Respiratory Problems/Disorders - copd GI History: Reports: Hx Gastrointestinal Bleed - 2007, Hx Obstructive Bowel - "twisted intestine", Other GI Disorders - colitis Denies: Hx Cirrhosis, Hx Crohn's Disease, Hx Diverticulosis, Hx Gall Bladder Disease, Hx Gastroesophageal Reflux Disease, Hx Hiatal Hernia, Hx Irritable Bowel, Hx Jaundice, Hx Ileostomy, Hx Pyloric Stenosis, Hx Ulcer History: Denies: Hx Acute Renal Failure, Hx Benign Prostatic Hyperplasia, Hx Chronic Renal Failure, Hx Dialysis, Hx Kidney Infection, Hx Kidney Stones, Hx Renal Disease, Other Problems/Disorders Musculoskeletal History: Denies: Hx Arthritis, Hx Rheumatoid Arthritis, Hx Back Problems, Hx Bursitis , Hx Congenital Bone Abnormalities, Hx Fibromyalgia, Hx Gout, Hx Orthopedic Injury, Hx Osteoporosis, Hx Scoliosis, Hx Tendonitis, Other Musculoskeletal History Sensory History: Reports: Hx Cataracts, Hx Contacts or Glasses Denies: Hx Eye Injury, Hx Eye Prosthesis, Hx Legally Blind, Hx Macular Degeneration, Hx Vision Problem, Hx Deafness, Hx Hearing Aid, Hx Hearing Problem , Other Sensory Impairments Opthamlomology History: Reports: Hx Cataracts, Hx Contacts or Glasses Denies: Hx Eye Injury, Hx Eye Prosthesis, Hx Legally Blind, Hx Macular Degeneration, Hx Vision Problem, Other Sensory Impairments Neurological History: Reports: Hx Seizures - 2006 febrile Denies: Hx Dementia, Hx Developmental Delay, Hx Headaches, Hx Migraine, Hx Nerve Disease, Hx Spinal Cord Injury, Hx Transient Ischemic Attacks (TIA), Other Neuro Impairments/Disorders Psychiatric History: Reports: Hx Anxiety - when SOB Denies: Hx Attention Deficit Hyperactivity Disorder, Hx Eating Disorder, Hx Depression, Hx Panic Disorder, Hx Post Traumatic Stress Disorder, Hx Inpatient Treatment, Hx Community Mental Health Tx, Hx Schizophrenia, Hx Bipolar Disorder , Hx Suicide Attempt, Hx of Violent Episodes Against Others, Hx Substance Abuse , Other Psychiatric Issues/Disorders - Cancer History Cancer Type, Location and Year: . neoplasm malignant left mouth/tongue salivary gland 2011 Hx Chemotherapy: No Hx Radiation Therapy: Yes - 2013 Hx Palliative Cancer Treatment: No - Surgical History Surgery Procedure, Year, and Place: 08/27/13 - BIOPSY UNDER TONGUE [id number], salivary gland and lymph node removed from left neck. [facility] Hx Anesthesia Reactions: No Infectious Disease History: No Infectious Disease History: Denies: Hx Hepatitis, Hx Human Immunodeficiency Virus (HIV), Hx Tuberculosis , History Other Infectious Disease, Traveled Outside the [place] in Last 30 Days - Family History Known Family History: Negative: Hypertension - Social History Lives: With Family Alcohol Use: Daily Alcohol Amount: 2-3 GLASSES/DAY Hx Substance Use: No Substance Use Type: Reports: None Hx Tobacco Use: Yes Smoking Status (MU): Former Smoker Type: Cigarettes Amount Used/How Often: 45 years Length of Time of Smoking/Using Tobacco: 07/30/2011 Have You Smoked in the Last Year: No Review of Systems Negative: Chest Pain Negative: Shortness Of Breath Positive: Other - right shoulder pain, right hip pain Positive: Other - skin tear on right elbow All Other Systems Reviewed And Are Negative: Yes Physical Exam - Summary Physical Exam Summary: GENERAL: Patient is a well developed and nourished __(M/F)__ who is lying comfortable in the stretcher. Patient is not in any acute respiratory distress. HEAD AND FACE: Normocephalic EYES: PERRLA, EOMI x 2. EARS: Hearing grossly intact. MOUTH: Oropharynx within normal limits. NECK: Supple, trachea is midline, no adenopathy, no JVD, no carotid bruit. CHEST: Symmetric, no tenderness at palpation LUNGS: Clear to auscultation bilaterally. No wheezing or crackles. CVS: Regular rate and rhythm, S1 and S2 present, no murmurs or gallops appreciated. ABDOMEN: Soft, non-tender. Bowel sounds are normal. No abdominal abnormal pulsations. EXTREMITIES: Right shoulder deformity, rom limited secondary to pain, neurovascularly intact. Skin tear on right elbow posteriorly. NEURO: Alert and oriented x 3. No acute neurological deficits. Speech is normal and follows commands. SKIN: Dry and warm Triage Information Reviewed: Yes Vital Signs On Initial Exam: Initial Vitals Temp Pulse Resp BP Pulse Ox 97.3 F 70 16 179/92 99 11/24/17 11:42 11/24/17 11:42 11/24/17 11:42 11/24/17 11:42 11/24/17 11:42 Vital Signs Reviewed: Yes Diagnostics - Vital Signs Vital Signs Temp Pulse Resp BP Pulse Ox 11/24/17 11:47 72 179/92 98 11/24/17 11:46 70 99 11/24/17 11:42 97.3 F 70 16 179/92 99 - Laboratory Lab Results: Lab Results 11/24/17 11/24/17 11/24/17 Range/Units 14:26 14:26 14:26 WBC 11.2 H (3.5-10.8) 10^3/ul RBC 3.06 L (4.0-5.4) 10^6/ul Hgb 11.0 L (12.0-16.0) g/dl Hct 32 L (35-47) % MCV 103 H (80-97) fL MCH 36 H (27-31) pg MCHC 35 (31-36) g/dl RDW 13 (10.5-15) % Plt Count 134 L (150-450) 10^3/ul MPV 6.9 L (7.4-10.4) um3 Neut % (Auto) 90.1 H (38-83) % Lymph % (Auto) 2.5 L (25-47) % [place] % (Auto) 6.9 (0-7) % Eos % (Auto) 0.2 (0-6) % Baso % (Auto) 0.3 (0-2) % Absolute Neuts (auto) 10.1 H (1.5-7.7) 10^3/ul Absolute Lymphs (auto) 0.3 L (1.0-4.8) 10^3/ul Absolute Monos (auto) 0.8 (0-0.8) 10^3/ul Absolute Eos (auto) 0 (0-0.6) 10^3/ul Absolute Basos (auto) 0 (0-0.2) 10^3/ul Absolute Nucleated RBC 0 10^3/ul Nucleated RBC % 0 INR (Anticoag Therapy) 1.01 (0.77-1.02) APTT 30.2 (26.0-36.3) seconds Sodium (139-145) mmol/L Potassium (3.5-5.0) mmol/L Chloride (101-111) mmol/L Carbon Dioxide (22-32) mmol/L Anion Gap (2-11) mmol/L BUN (6-24) mg/dL Creatinine (0.51-0.95) mg/dL Est GFR ( Amer) (>60) Est GFR (Non-Af Amer) (>60) BUN/Creatinine Ratio (8-20) Glucose (70-100) mg/dL Calcium (8.6-10.3) mg/dL Total Bilirubin (0.2-1.0) mg/dL AST (13-39) U/L ALT (7-52) U/L Alkaline Phosphatase (34-104) U/L Troponin I (<0.04) ng/mL Total Protein (6.4-8.9) g/dL Albumin (3.2-5.2) g/dL Globulin (2-4) g/dL Albumin/Globulin Ratio (1-3) Blood Type B Positive Antibody Screen Negative 11/24/17 Range/Units 14:26 WBC (3.5-10.8) 10^3/ul RBC (4.0-5.4) 10^6/ul Hgb (12.0-16.0) g/dl Hct (35-47) % MCV (80-97) fL MCH (27-31) pg MCHC (31-36) g/dl RDW (10.5-15) % Plt Count (150-450) 10^3/ul MPV (7.4-10.4) um3 Neut % (Auto) (38-83) % Lymph % (Auto) (25-47) % [place] % (Auto) (0-7) % Eos % (Auto) (0-6) % Baso % (Auto) (0-2) % Absolute Neuts (auto) (1.5-7.7) 10^3/ul Absolute Lymphs (auto) (1.0-4.8) 10^3/ul Absolute Monos (auto) (0-0.8) 10^3/ul Absolute Eos (auto) (0-0.6) 10^3/ul Absolute Basos (auto) (0-0.2) 10^3/ul Absolute Nucleated RBC 10^3/ul Nucleated RBC % INR (Anticoag Therapy) (0.77-1.02) APTT (26.0-36.3) seconds Sodium 128 L (139-145) mmol/L Potassium 4.0 (3.5-5.0) mmol/L Chloride 92 L (101-111) mmol/L Carbon Dioxide 27 (22-32) mmol/L Anion Gap 9 (2-11) mmol/L BUN 12 (6-24) mg/dL Creatinine 0.40 L (0.51-0.95) mg/dL Est GFR ( Amer) 202.9 (>60) Est GFR (Non-Af Amer) 157.8 (>60) BUN/Creatinine Ratio 30.0 H (8-20) Glucose 129 H (70-100) mg/dL Calcium 8.8 (8.6-10.3) mg/dL Total Bilirubin 0.70 (0.2-1.0) mg/dL AST 40 H (13-39) U/L ALT 32 (7-52) U/L Alkaline Phosphatase 80 (34-104) U/L Troponin I 0.00 (<0.04) ng/mL Total Protein 6.3 L (6.4-8.9) g/dL Albumin 3.7 (3.2-5.2) g/dL Globulin 2.6 (2-4) g/dL Albumin/Globulin Ratio 1.4 (1-3) Blood Type Antibody Screen Result Diagrams: 11/25/17 05:09 11/25/17 05:09 Lab Statement: Any lab studies that have been ordered have been reviewed, and results considered in the medical decision making process. Course/Dx - Course Course Of Treatment: 72 year old female presenting with right shoulder and hip pain after a mechanical fall. X ray of the hip and shoulder shows a subcapital fracture of the right hip and a humeral neck fracture. I consulted Dr. Carranza of [facility]. Patient will be admitted to the hospitalist. - Diagnoses Provider Diagnoses: Hip fracture, right, Shoulder fracture, right Discharge - Sign-Out/Discharge Documenting (check all that apply): Discharge/Admit/Transfer - Discharge Plan Condition: Stable Disposition: ADMITTED TO [facility] - Billing Disposition and Condition Condition: STABLE Disposition: [facility] The documentation as recorded by the Keenan wilson Tecjoon accurately reflects the service I personally performed and the decisions made by , Nathalia Kelly MD.
[2017-11-25] MEDS ORDERED: NS 0.9% 500 ML* 500 ML IV ONE (08:20)
[2017-11-25] MEDS ORDERED: Sertraline* 25 MG TAB PO SCH (09:00)
[2017-11-25] MEDS: Valsartan TAB* 80 MG PO SCH (09:05)
[2017-11-25] MEDS: Folic Acid TAB* 1 MG PO SCH (09:06)
[2017-11-25] MEDS: Thiamine TAB* 100 MG TAB PO SCH (09:06)
[2017-11-25] MEDS: Atorvastatin* 10 MG TAB PO SCH (09:06)
[2017-11-25] MEDS: ALPRAZolam TAB* 0.25 MG PO PRN (09:06)
[2017-11-25] MEDS: Aspirin 81 mg CHEW TAB* 81 MG TAB.CHEW PO SCH (09:06)
[2017-11-25] MEDS: Multivitamins/Minerals TAB PO SCH (09:07)
[2017-11-25] MEDS: PTO:Albuterol/Ipratropium RESP(NF) MDI (Combivent Respimat) INH PRN ×2 (09:20→15:40)
--- NOTE | 2017-11-25 10:29 | PN ---
Subjective Date of Service: 11/25/17 Interval History: Patient seen and examined. Pain is bad, patient is eager to have surgery today. Denies acute SOB, no chest pain, no n/v, no fevers or chills. at bedside. Objective Active Medications: Acetaminophen (Tylenol Tab*) 650 mg PO Q4H PRN PRN Reason: FEVER/PAIN Albuterol (Ventolin 2.5 Mg/3 Ml Neb.[place]*) 2.5 mg INH Q4H PRN PRN Reason: SOB/WHEEZING Albuterol/Ipratropium (Combivent Respimat(Nf)) 2 puff INH Q6HR PRN; Protocol PRN Reason: SOB/WHEEZING Last Admin: 11/25/17 09:20 Dose: 2 puff Alprazolam (Xanax Tab*) 0.25 mg PO .QD-QID PRN PRN Reason: ANXIETY Last Admin: 11/25/17 09:06 Dose: 0.25 mg Aspirin (Aspirin 81 Mg Chew Tab*) 81 mg PO DAILY [facility] Last Admin: 11/25/17 09:06 Dose: 81 mg Atorvastatin Calcium (Lipitor*) 10 mg PO DAILY [facility] Last Admin: 11/25/17 09:06 Dose: 10 mg Budesonide/Formoterol Fumarate (Symbicort 160/4.5 (Nf)) 2 puff INH BID QI PRN Reason: Protocol Last Admin: 11/25/17 07:31 Dose: 2 puff Cyclobenzaprine HCl (Flexeril Tab*) 10 mg PO BID PRN PRN Reason: SPASMS Last Admin: 11/24/17 22:09 Dose: 10 mg Folic Acid (Folvite Tab*) 1 mg PO DAILY [facility] Last Admin: 11/25/17 09:06 Dose: 1 mg Heparin Sodium (Porcine) (Heparin Vial(*)) 5,000 units SUBCUT Q8HR [facility] Last Admin: 11/25/17 05:30 Dose: Not Given Sodium Chloride (Ns 0.9% 1000 Ml*) 1,000 mls @ 75 mls/hr IV PER RATE [facility] Last Admin: 11/25/17 06:02 Dose: 75 mls/hr Levothyroxine Sodium (Synthroid Tab*) 50 mcg PO 0600 [facility] Last Admin: 11/25/17 05:20 Dose: 50 mcg Lorazepam (Ativan Tab(*)) 0 - 6 mg PO .PER [facility] PROTOCOL QI PRN Reason: Protocol Metoprolol Succinate (Toprol Xl Tab*) 75 mg PO DAILY [facility] Last Admin: 11/25/17 07:33 Dose: 75 mg Morphine Sulfate (Morphine Vial*) 2 mg IV Q2H PRN PRN Reason: PAIN - MILD Last Admin: 11/25/17 09:04 Dose: 2 mg Multivitamins/Minerals (Theragran/Minerals Tab*) 1 tab PO DAILY [facility] Last Admin: 11/25/17 09:07 Dose: Not Given Ondansetron HCl (Zofran Inj*) 4 mg IV Q6H PRN PRN Reason: NAUSEA Sertraline HCl (Zoloft*) 50 mg PO DAILY [facility] Last Admin: 11/25/17 07:32 Dose: 50 mg Thiamine HCl (Vitamin B-1 Tab*) 100 mg PO DAILY [facility] Last Admin: 11/25/17 09:06 Dose: 100 mg Valsartan (Diovan Tab*) 80 mg PO DAILY [facility] Last Admin: 11/25/17 09:05 Dose: 80 mg Vital Signs - 8 hr 11/25/17 11/25/17 11/25/17 03:13 03:15 04:09 Temperature 98.4 F Pulse Rate 78 Respiratory 14 18 Rate Blood Pressure 115/64 (mmHg) O2 Sat by Pulse 100 99 Oximetry 11/25/17 11/25/17 11/25/17 04:53 06:01 06:03 Temperature 98.8 F Pulse Rate 82 Respiratory 16 16 16 Rate Blood Pressure 122/63 (mmHg) O2 Sat by Pulse 98 Oximetry 11/25/17 11/25/17 11/25/17 06:56 07:29 08:56 Temperature 98.3 F Pulse Rate 87 Respiratory 18 20 22 Rate Blood Pressure 123/55 (mmHg) O2 Sat by Pulse 97 Oximetry 11/25/17 11/25/17 09:04 09:06 Temperature Pulse Rate Respiratory 22 22 Rate Blood Pressure (mmHg) O2 Sat by Pulse Oximetry Oxygen Devices in Use Now: Nasal Cannula Appearance: Alert, NAD Eyes: PERRLA Ears/Nose/Mouth/Throat: NL Teeth, Lips, Gums, Mucous Membranes Moist Neck: NL Appearance and Movements; NL JVP, Trachea Midline Respiratory: Symmetrical Chest Expansion and Respiratory Effort, - - diminished throughout with exp wheeze on the left Cardiovascular: NL Sounds; No Murmurs; No JVD, RRR, No Edema Extremities: No Clubbing, Cyanosis Neurological: Alert and Oriented x 3, NL Sensation Nutrition: - - NPO for procedure Result Diagrams: 11/25/17 05:09 11/25/17 05:09 Additional Lab and Data: Lab Results 11/24/17 11/24/17 11/24/17 Range/Units 14:26 14:26 14:26 WBC 11.2 H (3.5-10.8) 10^3/ul RBC 3.06 L (4.0-5.4) 10^6/ul Hgb 11.0 L (12.0-16.0) g/dl Hct 32 L (35-47) % MCV 103 H (80-97) fL MCH 36 H (27-31) pg MCHC 35 (31-36) g/dl RDW 13 (10.5-15) % Plt Count 134 L (150-450) 10^3/ul MPV 6.9 L (7.4-10.4) um3 Neut % (Auto) 90.1 H (38-83) % Lymph % (Auto) 2.5 L (25-47) % [place] % (Auto) 6.9 (0-7) % Eos % (Auto) 0.2 (0-6) % Baso % (Auto) 0.3 (0-2) % Absolute Neuts (auto) 10.1 H (1.5-7.7) 10^3/ul Absolute Lymphs (auto) 0.3 L (1.0-4.8) 10^3/ul Absolute Monos (auto) 0.8 (0-0.8) 10^3/ul Absolute Eos (auto) 0 (0-0.6) 10^3/ul Absolute Basos (auto) 0 (0-0.2) 10^3/ul Absolute Nucleated RBC 0 10^3/ul Nucleated RBC % 0 INR (Anticoag Therapy) 1.01 (0.77-1.02) APTT 30.2 (26.0-36.3) seconds Sodium (139-145) mmol/L Potassium (3.5-5.0) mmol/L Chloride (101-111) mmol/L Carbon Dioxide (22-32) mmol/L Anion Gap (2-11) mmol/L BUN (6-24) mg/dL Creatinine (0.51-0.95) mg/dL Est GFR ( Amer) (>60) Est GFR (Non-Af Amer) (>60) BUN/Creatinine Ratio (8-20) Glucose (70-100) mg/dL Calcium (8.6-10.3) mg/dL Total Bilirubin (0.2-1.0) mg/dL AST (13-39) U/L ALT (7-52) U/L Alkaline Phosphatase (34-104) U/L Troponin I (<0.04) ng/mL Total Protein (6.4-8.9) g/dL Albumin (3.2-5.2) g/dL Globulin (2-4) g/dL Albumin/Globulin Ratio (1-3) Blood Type B Positive Antibody Screen Negative 11/24/17 Range/Units 14:26 WBC (3.5-10.8) 10^3/ul RBC (4.0-5.4) 10^6/ul Hgb (12.0-16.0) g/dl Hct (35-47) % MCV (80-97) fL MCH (27-31) pg MCHC (31-36) g/dl RDW (10.5-15) % Plt Count (150-450) 10^3/ul MPV (7.4-10.4) um3 Neut % (Auto) (38-83) % Lymph % (Auto) (25-47) % [place] % (Auto) (0-7) % Eos % (Auto) (0-6) % Baso % (Auto) (0-2) % Absolute Neuts (auto) (1.5-7.7) 10^3/ul Absolute Lymphs (auto) (1.0-4.8) 10^3/ul Absolute Monos (auto) (0-0.8) 10^3/ul Absolute Eos (auto) (0-0.6) 10^3/ul Absolute Basos (auto) (0-0.2) 10^3/ul Absolute Nucleated RBC 10^3/ul Nucleated RBC % INR (Anticoag Therapy) (0.77-1.02) APTT (26.0-36.3) seconds Sodium 128 L (139-145) mmol/L Potassium 4.0 (3.5-5.0) mmol/L Chloride 92 L (101-111) mmol/L Carbon Dioxide 27 (22-32) mmol/L Anion Gap 9 (2-11) mmol/L BUN 12 (6-24) mg/dL Creatinine 0.40 L (0.51-0.95) mg/dL Est GFR ( Amer) 202.9 (>60) Est GFR (Non-Af Amer) 157.8 (>60) BUN/Creatinine Ratio 30.0 H (8-20) Glucose 129 H (70-100) mg/dL Calcium 8.8 (8.6-10.3) mg/dL Total Bilirubin 0.70 (0.2-1.0) mg/dL AST 40 H (13-39) U/L ALT 32 (7-52) U/L Alkaline Phosphatase 80 (34-104) U/L Troponin I 0.00 (<0.04) ng/mL Total Protein 6.3 L (6.4-8.9) g/dL Albumin 3.7 (3.2-5.2) g/dL Globulin 2.6 (2-4) g/dL Albumin/Globulin Ratio 1.4 (1-3) Blood Type Antibody Screen Diagnostic Imaging: Patient Name: RADHA KEEN Medical Record#: [id number] Ordering Physician: Nathalia Kelly MD Acct.#: [id number] : 1945 Age: 72 Sex: F Location: EMERGENCY DEPARTMENT Exam Date: 11/24/171156 ADM Status: REG ER Order Information: FEMUR RIGHT Accession Number: [id number] CPT: 15516 Indication: Pelvis and RIGHT thigh pain post fall. Comparison: September 21, 2017 Technique: AP pelvis and AP and crosstable lateral views of the RIGHT hip and entire femur. Report: Bone density appears decreased throughout. Subcapital femoral neck fracture with mild impaction and slight valgus angulation. The femoral head remains located at the acetabulum. No additional fracture of the femur or pelvis evident. Negative for pelvic joint diastases. Healing response at the internally fixed LEFT intertrochanteric femur fracture with unchanged abundant callus formation and surrounding dystrophic bone formation compared with the September 21, 2017 exam. IMPRESSION: Subcapital femoral neck fracture with mild impaction and slight valgus angulation. The femoral head remains located at the acetabulum. No additional fracture of the femur or pelvis evident. <Electronically signed by Amando Nguyen MD in [facility]> 11/24/17 1325 Dictated By: Amando Nguyen MD Dictated Date/Time: 11/24/17 1325 Transcribed Date/Time: 11/24/17 1321 Copy to: Patient Name: RADHA KEEN Medical Record#: [id number] Ordering Physician: Nathalia Kelly MD Acct.#: [id number] : 1945 Age: 72 Sex: F Location: EMERGENCY DEPARTMENT Exam Date: 11/24/17 1402 ADM Status: REG ER Order Information: CHEST AP PORTABLE Accession Number: [id number] CPT: 47188 Indication: Raynaud's disease of the heart, hands, and feet severe. Oxygen dependent. COPD. Comparison: May 25, 2017 Technique: Upright AP 1444 hours Report: Severely elevated lung volumes. Rarefaction of interstitial markings. No focal pulmonary lesion, compelling alveolar consolidation, pleural effusion, pneumothorax. The heart, pulmonary vasculature, and mediastinal contours are unremarkable. Healed RIGHT seventh, eighth, and ninth rib fractures. Acute surgical neck fracture of the RIGHT humerus with severe varus angulation. IMPRESSION: 1. Stigmata of advanced chronic obstructive pulmonary disease and emphysema. 2. Acute surgical neck fracture of the RIGHT humerus with severe varus angulation. <Electronically signed by Amando Nguyen MD in [facility]> 11/24/17 1533 Dictated By: Amando Nguyen MD Dictated Date/Time: 11/24/17 1533 Transcribed Date/Time: 11/24/17 1521 Copy to: Assess/Plan/Problems-Billing Assessment: This is a 72 year old female with complex hx of COPD, mouth cancer, hypothyroidism, hypertension that sustained mechanical fall with subsequent right humeral fracture and right hip fracture. - Patient Problems (1) Subcapital fracture of neck of right femur Code(s): S72.011A - UNSP INTRACAPSULAR FRACTURE OF RIGHT FEMUR, INIT FOR CLOS FX SNOMED Code(s): 014968703 Comment: - Plan for OR today with Dr. Castillo, however, anesthesia is concerned about her chronically low sodium - Will continue to optimize sodium without overcorrecting and recheck at noon today. (2) Right humeral fracture Code(s): S42.301A - UNSP FRACTURE OF SHAFT OF HUMERUS, RIGHT ARM, INIT SNOMED Code(s): 20293207 Comment: - Plan per orthopedics, continue sling, pain control (3) Hyponatremia Code(s): E87.1 - HYPO-OSMOLALITY AND HYPONATREMIA SNOMED Code(s): 41212109 Comment: - Etiology unclear, SIADH? Appears euvolemic and socium is chronically low and has not been worked up in the past as per the patient - NPO after midnight last night so free water has already been restricted - Check serum osmolality, urine osmolality and urine sodium - Does have history of hypothryoidism, will check TSH and cortisol levels (4) COPD (chronic obstructive pulmonary disease) Code(s): J44.9 - CHRONIC OBSTRUCTIVE PULMONARY DISEASE, UNSPECIFIED SNOMED Code(s): 37839538 Comment: - No signs of exacerbation - Continue Symbicort - Continue supplemental O2 @ 2L NC - Aggressive post-operative pulmonary toilet (5) CAD (coronary artery disease) Code(s): I25.10 - ATHSCL HEART DISEASE OF [place] CORONARY ARTERY W/O ANG PCTRS SNOMED Code(s): 13971127 Comment: - Continue statin - Restart ASA when clear by surgery (6) HTN (hypertension) Code(s): I10 - ESSENTIAL (PRIMARY) HYPERTENSION SNOMED Code(s): 30572689 Comment: - Per record patient states her BP was high prior to admission - Currently stable, continue home BP meds (7) Physical deconditioning Code(s): R53.81 - OTHER MALAISE SNOMED Code(s): 13749655633064 Comment: - This is the patient's second fall with fractures in 6 months (left hip fx in April), will likely need rehab at [facility] (8) DVT prophylaxis Code(s): ZCK0946 - SNOMED Code(s): 734115956 Comment: - HSQ (9) Full code status Code(s): Z78.9 - OTHER SPECIFIED HEALTH STATUS SNOMED Code(s): 130886943
--- NOTE | 2017-11-25 11:05 | PN ---
Progress Note - Progress Note Date of Service: 11/25/17 Note: She looks good this morning. The right shoulder is causing her significant pain. Dr. Castillo will assist with a right hip hemiarthroplasty this afternoon. I will take care of her shoulder at a separate surgery in the next few days.
--- NOTE | 2017-11-25 13:46 | PN ---
Hospitalist Progress Note Date of Service: 11/25/17 Evaluated labs, sodium remains flat at 125, serum osmolality is low, as is FEna and urine sodium. TSH improved from last month. 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 Will recheck Na level one last time in anticipation of planned hemiarthroplasty this afternoon and fluid restrict post operatively to slowly correct sodium. Patient is stable with no neurologic deficits. Recommend following closely post-operatively as it would not be prudent to overcorrect too quickly. Given COPD, I would be more concerned about respiratory status and postponing surgery, as she is high risk for PNA and clot formation being unable to move OOB 2/2 to acute fractures. Patient's inquired about regional anesthesia as opposed to general which would probably be a safer option, this should be discussed with the attending anesthesiologist.
[2017-11-25] MEDS ORDERED: Lidocaine 2% PF * 5 ML VIAL ONE (17:12)
[2017-11-25] MEDS ORDERED: Ondansetron INJ* 2 MG/ML VIAL ONE (17:12)
[2017-11-25] MEDS ORDERED: Propofol* 10 MG/ML 20 ML BTL IV PUSH ONE (17:12)
[2017-11-25] MEDS ORDERED: Midazolam* 1 MG/ML 5 ML VIAL (5 MG) ONE (17:12)
[2017-11-25] MEDS ORDERED: Dexamethasone IV* 4 MG/ML 1 ML (4 MG) ONE (17:12)
[2017-11-25] MEDS ORDERED: fentaNYL* 50 MCG/ML 2 ML VIAL (100 MCG VIAL) ONE (17:12)
[2017-11-25] MEDS ORDERED: ceFAZolin 2 GM PREMIX (*) 2 GM/50 ML BAG IVPB ONE (17:57)
[2017-11-25] MEDS ORDERED: KETAMINE HCL* 50 MG/ML 10 ML VIAL ONE (18:07)
[2017-11-25] MEDS ORDERED: Levalbuterol HFA INHALER* 1 PUFF MDI ONE (19:11)
[2017-11-25] MEDS ORDERED: Cisatracurium* 2 MG/ML MDV 5 ML ONE (19:14)
[2017-11-25] MEDS ORDERED: Phenylephrine INJ* 10 MG/ML 1 ML VIAL (10 MG) ONE (19:33)
[2017-11-25] MEDS ORDERED: EPHEDrine (Pressors)* 50 MG/ML VIAL ONE (19:33)
[2017-11-25] MEDS ORDERED: HYDROmorphone INJ* 1 MG/ML CARPUJECT SYRINGE ONE (19:48)
[2017-11-25] MEDS ORDERED: Ketorolac INJ* 30 MG/ML 1 ML VIAL ONE (19:55)
[2017-11-25] MEDS ORDERED: Bupivacaine 0.25% SDV* 30 ML ONE (20:26)
[2017-11-25] MEDS ORDERED: Magnesium Hydroxide LIQ* 30 ML UDC PO PRN (20:41)
[2017-11-25] MEDS ORDERED: diPHENhydraMINE IV* 50 MG/ML 1 ml VIAL (BENADRYL) IV PRN (20:41)
[2017-11-25] MEDS ORDERED: Ondansetron INJ* 2 MG/ML VIAL IV PRN (21:39)
[2017-11-25] MEDS ORDERED: fentaNYL* 50 MCG/ML 2 ML VIAL (100 MCG VIAL) IV PRN (21:39)
[2017-11-25] MEDS ORDERED: Naloxone* 0.4 MG/ML 1 ML VIAL IV PRN (21:39)
[2017-11-25] MEDS ORDERED: Levalbuterol 0.63MG/3ML NEB* UNIT OF USE INH PRN (21:39)
--- NOTE | 2017-11-25 21:58 | CONS ---
CONSULTATION NOTE: DATE OF CONSULT: 11/25/17 CHIEF COMPLAINT: Right hip pain. HISTORY OF PRESENT ILLNESS: Ms. Cabello is a 72-year-old female who was at a [employer] today when she caught her foot in a driveway and fell landing on her right side. She immediately had her help her into her truck. When they got home, she was unable to walk and they called 911. She was brought to [facility] by ambulance. She was found to have a displaced right femoral neck fracture. The patient has significant medical history of recent left hip fracture in April [address] Vega. She has a history of mouth cancer, cachexia, hypothyroidism, hypertension, and CAD, [place] in 1995, and severe COPD. The patient was also found to have a right proximal humerus fracture. She was initially evaluated by Dr. Carranza, who requested that I take care of the right hip. I am glad to do so. PAST MEDICAL HISTORY: Hypothyroidism, hypertension, hyperlipidemia, anxiety, depression, COPD, CAD, Raynaud, history of mouth cancer. PAST SURGICAL HISTORY: Left neck lymph node resection, salivary gland resection , left hip ORIF 2016. HOME MEDICATIONS: 1. Zoloft. 2. Toprol XL. 3. Aspirin. 4. Xanax. 5. Lipitor. 6. DuoNeb. 7. Combivent. 8. Synthroid. 9. Symbicort. Please see dosages in her medical reconciliation. ALLERGIES: To BUPROPION, CIPRO, LAMICTAL, KEPPRA, LEVAQUIN, ATIVAN, MORPHINE, PROCARDIA, TOPAMAX, ZONISAMIDE. FAMILY HISTORY: Maternal; hypertension, COPD. Paternal; CHF, hypertension, COPD. SOCIAL HISTORY: The patient is a former smoker. She drinks 4 to 5 glasses of wine a day. Was recently ambulating independently. Lives with her . REVIEW OF SYSTEMS: 14 systems reviewed with the patient. Positive for right hip pain, right shoulder pain. Negative for fevers, chills, chest pain, shortness of breath. Otherwise, the patient reports review of systems is negative or not relevant. PHYSICAL EXAM: Vitals: Temperature 98.7, pulse 98, blood pressure 159/71. General: The patient is a thin, frail-appearing female, who appears older than her stated age. She is alert and oriented x3, pleasant mood, appropriate affect. Accompanied by her daughter and who are loving and supportive. Gait is not assessed. HEENT: Atraumatic, normocephalic. Right upper extremity , she has extreme ecchymosis and tenderness around the shoulder, swelling at the proximal humerus. She cannot move the shoulder or elbow because of shoulder pain. No tenderness around the elbow to bony palpation, although she does have a laceration that is dressed. She cannot flex and extend the wrist when I isolate this. She can demonstrate thumbs up and okay and cross finger sign. 2+ palpable radial pulse. Right lower extremity, the patient's skin is intact. No abrasions or open wounds. Significant muscle atrophy. She demonstrates dorsiflexion and plantar flexion. 2+ palpable DP pulse. Full sensation to light touch in all nerve distributions. DIAGNOSTIC STUDIES/LAB DATA: Recent labs show white blood cells 5.6, hematocrit 28, platelets 105. INR 0.97. Sodium 127, potassium 4.3, chloride 91 , BUN and creatinine 10 and 0.43. Urinalysis positive for leukocyte esterase, white blood cells. Radiographs: Multiple views of the right hip show displaced right femoral neck fracture. ASSESSMENT AND PLAN: Ms. Cabello is a 72-year-old female status post fall with a displaced right femoral neck fracture and displaced right proximal humerus fracture. The patient and I discussed the hip fracture at length. She understands operative and nonoperative treatment options. She would like to proceed with surgery. We had a long conversation about the risks and benefits of both hemiarthroplasty and total hip arthroplasty. She understands that many studies show better function overall after total hip arthroplasty. The patient is very clear that she does not feel she has a long life expectancy and would like the hemiarthroplasty if at all possible. She is leaving it up to me to make intraoperative decisions based on her acetabular anatomy. The preop radiographs , I am concerned about some dysplasia and shallow acetabulum. If her acetabulum is severely dysplastic or has significant cartilage degeneration, I will transition to a total hip arthroplasty. The patient agrees to this plan. The patient and her family understand the risks and benefits of surgery include , but are not limited to bleeding, infection, damage to nearby structures, continued pain, need for further surgery, intraoperative fracture, nerve palsy, hardware failure or loosening, dislocation, leg length discrepancy, stroke, heart attack, blood clot, and . She wishes to proceed. The patient has been NPO. We have an available OR now and we will start to plan for the surgery. Consent is signed by the patient's daughter, who is at the bedside because of her arm pain. Consent is placed in the chart. She will have IV antibiotics and she has currently been on Rocephin because of UTI. Thank you for this orthopedic consultation. [id number]/[facility] #: [id number] MENDOZA
--- NOTE | 2017-11-25 23:40 | OP ---
DATE OF OPERATION: 11/25/17 - ROOM #333 DATE OF : 49 ATTENDING SURGEON: Mee Castillo MD SYSTEMS PROGRAMMER: VICKEY [place]. Mr. Rowland did help throughout the procedure with preparation of the leg, wound retraction, manipulation of the hip, and wound closure. ANESTHESIOLOGIST: Dr. Daniels. ANESTHESIA: General. PRE-OP DIAGNOSIS: Right displaced femoral neck fracture. POST-OP DIAGNOSIS: Right displaced femoral neck fracture. OPERATIVE PROCEDURE: Right hip hemiarthroplasty. HARDWARE USED: This is uncemented Roscoe hardware. For the stem, an Accolade TMZF 2.5 with a 127 neck. For the head, a 26 -3 LFIT V40 femoral head. For the bipolar component, a universal head bipolar component of 43/26. ESTIMATED BLOOD LOSS: 200 cc. COMPLICATIONS: None. SPECIMENS: Femoral head sent to Pathology. BRIEF HISTORY/INDICATION: Ms. Cabello is a 72-year-old female with multiple medical comorbidities. She slipped at a [employer] store and fell onto her right side. She was able to get into her 's truck; but upon making it home, she was unable to ambulate. She was brought to [facility] by ambulance and found to have both a right proximal humerus fracture and a right displaced femoral neck fracture. The patient was optimized for surgery. I was asked to see the patient and fix her hip fracture. The patient's family and I as well as the patient and I discussed the operative and nonoperative treatment options. She wished to proceed with operative intervention. We discussed the risks and benefits of hemiarthroplasty versus total hip arthroplasty. Although , I did recommend a total hip arthroplasty, the patient's wishes were to have as minimal surgery as possible and she wanted to have a hemiarthroplasty. Informed consent was obtained from the patient. She understood the risks of the surgery included but were not limited to bleeding, infection, damage to nearby structures, continued pain, need for further surgery, intraoperative fracture, nerve palsy, hardware failure or loosening, dislocation, leg length discrepancy , stroke, heart attack, blood clot and . She wished to proceed. INTRAOPERATIVE FINDINGS: Intraoperatively, the patient was noted to have a displaced comminuted femoral neck fracture. Acetabulum had some mild degenerative changes. DESCRIPTION OF PROCEDURE: Mr. Cabello was identified in the preanesthesia unit. Her left lower extremity was marked as the correct operative side. Informed consent was signed and placed in the chart. The patient was taken to the operating room and placed under general anesthesia. A Castellanos catheter had already been placed. She was placed in the left lateral decubitus position on the peg board. All bony prominences were well padded. Right lower extremity was prepped and draped in the usual sterile fashion. Preop time-out was made to correctly identity the patient's side and site. Appropriate perioperative antibiotics were given within 1 hour of incision. A 10 cm posterior hip incision was with a 10 blade. Electrocautery dissected down to the lateral fascial layer. The 10 blade was used to incise the lateral fascial layer in line with the skin incision. A Charnley retractor was placed. The piriformis and conjoint tendons were identified. These were elevated off the posterolateral femur and tagged with #5 Ethibond. Next, a capsular flap was made carefully without any disruption of the labrum. This was also tagged with #5 Ethibond. The fractured femoral neck was presented and oscillating saw was used to make a clean up cut along the femoral neck. Bony fragments of comminution were carefully removed with a rongeur. A corkscrew was used to remove the femoral head. Femoral head was measured at a 43. At this point, the acetabulum was visualized. Labrum was intact. There were some mild degenerative changes, but there was remaining cartilage. A 43 trial head had excellent fit, stability and suction. Decision was made to honor the patient's wishes and proceed with hemiarthroplasty. The femoral canal was entered with a femoral canal finder. The femoral canal was then subsequently broached up to a size 2.5. A 2.5 broach had excellent stability. A 127 neck trial and a -30 head trial were placed. The hip was reduced and taken through a range of motion with a 43 bipolar component trial. The hip was stable in all positions. Soft tissue tension and leg lengths were deemed to be appropriate. The hip was carefully dislocated. All trials were removed. Final implant chosen was an Accolade TMZF size 3.5 with a 127-degree neck. This was impacted into a femoral canal without difficulty. The stem was stable with appropriate anteversion. Next, a 26 -3 femoral head was impacted into the femoral neck. A 43/26 bipolar component was impacted onto this. The hip was reduced and taken through range of motion. The hip was stable in all positions. Previously tagged capsule and tendons were reapproximated to the posterolateral femur through 2 trochanteric drill holes. The hip was copiously irrigated with sterile saline. The lateral fascial layer was closed using #1 Vicryl. The rest of the incision was closed in a layered fashion using 0 and 2-0 Vicryl. Skin was closed using running 3-0 Monocryl and Dermabond. Sterile Adaptic, 4x4s , and paper tape were used to cover the incision. The patient's anesthesia was reversed without difficulty. She was taken to the PACU in stable condition. Intended weight bearing will be weightbearing as tolerated with posterior hip precautions. Intended DVT prophylaxis will be Lovenox. [id number]/[facility] #: [id number] MTDFang
[2017-11-26] MEDS: Magnesium Hydroxide LIQ* 30 ML UDC PO SCH ×3 (00:38→21:14)
[2017-11-26] MEDS: ceFAZolin 1 GM in Dextrose (*) 1 GM/50 ML BAG IVPB SCH ×3 (03:14→19:33)
[2017-11-26] MEDS: oxyCODONE/Acetamin 5/325 MG* TAB PO PRN ×4 (03:16→21:14)
[2017-11-26] MEDS: ALPRAZolam TAB* 0.25 MG PO PRN (05:18)
[2017-11-26] MEDS: Levothyroxine TAB* 50 MCG TAB PO SCH (05:18)
[2017-11-26 05:51] LABS: Hematocrit 21 % (35-47); Hemoglobin 7.3 g/dl (12.0-16.0); Mean Platelet Volume 7.5 um3 (7.4-10.4); Platelet Count 81 10^3/ul (150-450)
[2017-11-26 06:14] LABS: EGFR Non-African American 111.6 (>60)
--- NOTE | 2017-11-26 07:09 | RAD ---
INDICATION: Status post right hip arthroplasty. COMPARISON: Comparison is made with a prior x-ray study of the pelvis from November 24, 2017. TECHNIQUE: An AP view of the pelvis and frontal and lateral views of the right hip were obtained. FINDINGS: The patient is status post right hip hemiarthroplasty. The bones and prostheses are in normal alignment. The patient is status post operative reduction and internal fixation of an intertrochanteric fracture of the left femur. There is a femoral head nail and intramedullary kay present with prominent bony callus present which appears unchanged from the prior study. IMPRESSION: STATUS POST RIGHT HEMIARTHROPLASTY.
[2017-11-26] MEDS: PTO:Albuterol/Ipratropium RESP(NF) MDI (Combivent Respimat) INH PRN ×2 (08:24→19:44)
--- NOTE | 2017-11-26 10:26 | PN ---
Progress Note - Progress Note Date of Service: 11/26/17 SOAP: Subjective: []Patient seen OOB in chair. She reports pain to be much improved from yesterday. She reports no pain today and no other complaints. Denies chest pain , shortness of breath, dizziness, nausea. Objective: [] Vital Signs Temp 97.9 F 11/26/17 11:21 Pulse 52 11/26/17 11:21 Resp 20 11/26/17 11:21 BP 108/43 11/26/17 11:21 Pulse Ox 99 11/26/17 11:47 Intake & Output 11/25/17 11/26/17 11/26/17 18:59 06:59 18:59 Intake Total 1178 1450 200 Output Total 200 575 Balance 978 875 200 Weight 84 lb Intake: IV Fluids 1178 1400 LR 1350 NS (0.9%) 1178 NS 50ML, Cefazolin 2G 50 Oral 0 50 200 Output: Castellanos 200 325 Estimated Blood Loss 250 Laboratory Last Values WBC 5.6 10^3/ul (3.5-10.8) 11/25/17 05:09 RBC 2.74 10^6/ul (4.0-5.4) L 11/25/17 05:09 Hgb 7.3 g/dl (12.0-16.0) L 11/26/17 05:01 Hct 21 % (35-47) L 11/26/17 05:01 MCV 104 fL (80-97) H 11/25/17 05:09 MCH 37 pg (27-31) H 11/25/17 05:09 MCHC 36 g/dl (31-36) 11/25/17 05:09 RDW 13 % (10.5-15) 11/25/17 05:09 Plt Count 81 10^3/ul (150-450) L 11/26/17 05:01 MPV 7.5 um3 (7.4-10.4) 11/26/17 05:01 Neut % (Auto) 81.6 % (38-83) 11/25/17 05:09 Lymph % (Auto) 6.0 % (25-47) L 11/25/17 05:09 [place] % (Auto) 11.6 % (0-7) H 11/25/17 05:09 Eos % (Auto) 0.6 % (0-6) 11/25/17 05:09 Baso % (Auto) 0.2 % (0-2) 11/25/17 05:09 Absolute Neuts (auto) 4.6 10^3/ul (1.5-7.7) 11/25/17 05:09 Absolute Lymphs (auto) 0.3 10^3/ul (1.0-4.8) L 11/25/17 05:09 Absolute Monos (auto) 0.7 10^3/ul (0-0.8) 11/25/17 05:09 Absolute Eos (auto) 0 10^3/ul (0-0.6) 11/25/17 05:09 Absolute Basos (auto) 0 10^3/ul (0-0.2) 11/25/17 05:09 Absolute Nucleated RBC 0 10^3/ul 11/25/17 05:09 Nucleated RBC % 0 11/25/17 05:09 INR (Anticoag Therapy) 0.97 (0.77-1.02) 11/25/17 05:09 APTT 30.2 seconds (26.0-36.3) 11/24/17 14:26 Sodium 126 mmol/L (139-145) L 11/26/17 05:02 Potassium 4.3 mmol/L (3.5-5.0) 11/26/17 05:02 Chloride 98 mmol/L (101-111) L 11/26/17 05:02 Carbon Dioxide 27 mmol/L (22-32) 11/26/17 05:02 Anion Gap 1 mmol/L (2-11) L 11/26/17 05:02 BUN 11 mg/dL (6-24) 11/26/17 05:02 Creatinine 0.54 mg/dL (0.51-0.95) 11/26/17 05:02 Est GFR ( Amer) 143.5 (>60) 11/26/17 05:02 Est GFR (Non-Af Amer) 111.6 (>60) 11/26/17 05:02 BUN/Creatinine Ratio 20.4 (8-20) H 11/26/17 05:02 Glucose 120 mg/dL (70-100) H 11/26/17 05:02 Serum Osmolality 274 mOsm/kg (275-295) L 11/25/17 05:09 Calcium 8.0 mg/dL (8.6-10.3) L 11/26/17 05:02 Total Bilirubin 0.70 mg/dL (0.2-1.0) 11/24/17 14:26 AST 40 U/L (13-39) H 11/24/17 14:26 ALT 32 U/L (7-52) 11/24/17 14:26 Alkaline Phosphatase 80 U/L (34-104) 11/24/17 14:26 Troponin I 0.00 ng/mL (<0.04) 11/24/17 14:26 Total Protein 6.3 g/dL (6.4-8.9) L 11/24/17 14:26 Albumin 3.7 g/dL (3.2-5.2) 11/24/17 14:26 Globulin 2.6 g/dL (2-4) 11/24/17 14:26 Albumin/Globulin Ratio 1.4 (1-3) 11/24/17 14:26 TSH 2.09 mcIU/mL (0.34-5.60) 11/25/17 05:09 Cortisol 24.91 mcg/dL 11/25/17 05:09 Urine Color Yellow 11/24/17 17:09 Urine Appearance Cloudy 11/24/17 17:09 Urine pH 7.0 (5-9) 11/24/17 17:09 Ur Specific [place] 1.010 (1.010-1.030) 11/24/17 17:09 Urine Protein Negative (Negative) 11/24/17 17:09 Urine Ketones Negative (Negative) 11/24/17 17:09 Urine Blood Negative (Negative) 11/24/17 17:09 Urine Nitrate Negative (Negative) 11/24/17 17:09 Urine Bilirubin Negative (Negative) 11/24/17 17:09 Urine Urobilinogen Negative (Negative) 11/24/17 17:09 Ur Leukocyte Esterase 3+ (Negative) A 11/24/17 17:09 Urine WBC (Auto) 3+(>20/hpf) (Absent) A 11/24/17 17:09 Urine RBC (Auto) 3+(>10/hpf) (Absent) A 11/24/17 17:09 Ur Squamous Epith Cells Present (Absent) A 11/24/17 17:09 Ur Transition Epith Cell Present (Absent) A 11/24/17 17:09 Urine Bacteria Absent (Absent) 11/24/17 17:09 Urine Osmolality 613 mOsm/kg (150-1150) 11/25/17 10:06 Ur Random Creatinine 131.83 mg/dL 11/25/17 10:06 Ur Random Sodium < 18 mmol/L 11/25/17 10:06 Renal Sodium Excretion 0.04 % 11/25/17 10:06 Urine Glucose Negative (Negative) 11/24/17 17:09 Urine Ascorbic Acid * (Negative) A 11/24/17 17:09 Blood Type B Positive 11/24/17 14:26 Antibody Screen Negative 11/24/17 14:26 Crossmatch See Detail 11/24/17 14:26 General: NAD, sitting comfortably in a chair. Appropriate conversation RLE: Dressing CDI. DF/PF intact. Able to flex and extend at knee as well as straight leg raise. Sensation intact distally. 2+ dp pulse. BL LE: Calves supple and nontender without erythema, edema or palpable cords. BL feet with chronic purple discoloration distally reportedly unchanged from previous. Capillary refill less than two seconds distally. RLE: Splint in place, ecchymosis of proximal humerous. Forearm nontender, warm and supple. Sensation intact throughout right hand, radial pulse 2+, able to flex and extend wrist, able to flex, extend, abduct and adduct all digits. Assessment: []POD 1 sp right hip hemiarthroplasty Right humerous fracture awaiting fixation Acute bloodloss anemia Hyponatremia Plan: [] 1 unit PRBC ordered Sodium levels to be monitored Will need right humerous ORIF within the next few days ( Dr Carranza) Lovenox DVT prophylaxis WBAT RLE as safely able due to same side humorous fracture resulting in NWB RUE First dressing change for right hip tomorrow
[2017-11-26] MEDS: Valsartan TAB* 80 MG PO SCH (10:50)
[2017-11-26] MEDS: Multivitamins/Minerals TAB PO SCH (10:51)
[2017-11-26] MEDS: Folic Acid TAB* 1 MG PO SCH (10:51)
[2017-11-26] MEDS: Thiamine TAB* 100 MG TAB PO SCH (10:51)
[2017-11-26] MEDS: Aspirin 81 mg CHEW TAB* 81 MG TAB.CHEW PO SCH (10:51)
[2017-11-26] MEDS: Sertraline* 50 MG TAB PO SCH (10:51)
[2017-11-26] MEDS: Atorvastatin* 10 MG TAB PO SCH (10:51)
[2017-11-26] MEDS: PTO:Budesonide/Formote 160/4.5(NF) MDI INH SCH ×2 (10:59→19:42)
[2017-11-26] MEDS: Enoxaparin(*) 30 MG/0.3 ML SYR SUBCUT SCH (11:02)
[2017-11-26] MEDS: Metoprolol Succinate XL TAB* 50 MG PO SCH (11:50)
[2017-11-26] MEDS ORDERED: Levofloxacin 750 MG IVPREMIX(* 750 MG/150 ML BAG IVPB ONE (12:16)
[2017-11-26] MEDS: Cyclobenzaprine TAB* 10 MG PO PRN (12:18)
--- NOTE | 2017-11-26 17:28 | PN ---
Subjective Date of Service: 11/26/17 Interval History: Patient seen and examined. Feeling better, patient and her are pleased with her hip surgery, anxious for the humerus to be repaired. No post-op events noted. Mild anemia, asymptomatic. Pain in hip is tolerable, arm is still very painful. Denies SOB, no chest pain, no n/v. No further complaints other than immobility 2/2 fractures. Objective Active Medications: Acetaminophen (Tylenol Tab*) 650 mg PO Q4H PRN PRN Reason: FEVER/PAIN Albuterol (Ventolin 2.5 Mg/3 Ml Neb.Beulah*) 2.5 mg INH Q4H PRN PRN Reason: SOB/WHEEZING Albuterol/Ipratropium (Combivent Respimat(Nf)) 2 puff INH Q6HR PRN; Protocol PRN Reason: SOB/WHEEZING Last Admin: 11/26/17 08:24 Dose: 2 puff Alprazolam (Xanax Tab*) 0.25 mg PO .QD-QID PRN PRN Reason: ANXIETY Last Admin: 11/26/17 05:18 Dose: 0.25 mg Aspirin (Aspirin 81 Mg Chew Tab*) 81 mg PO DAILY [facility] Last Admin: 11/26/17 10:51 Dose: 81 mg Atorvastatin Calcium (Lipitor*) 10 mg PO DAILY [facility] Last Admin: 11/26/17 10:51 Dose: 10 mg Budesonide/Formoterol Fumarate (Symbicort 160/4.5 (Nf)) 2 puff INH BID QI PRN Reason: Protocol Last Admin: 11/26/17 10:59 Dose: 2 puff Cyclobenzaprine HCl (Flexeril Tab*) 10 mg PO BID PRN PRN Reason: SPASMS Last Admin: 11/26/17 12:18 Dose: 10 mg Diphenhydramine HCl (Benadryl Iv*) 25 mg IV Q6H PRN PRN Reason: itching Enoxaparin Sodium (Lovenox(*)) 30 mg SUBCUT Q24H [facility] Last Admin: 11/26/17 11:02 Dose: 30 mg Folic Acid (Folvite Tab*) 1 mg PO DAILY [facility] Last Admin: 11/26/17 10:51 Dose: 1 mg Cefazolin Sodium/Dextrose (Kefzol 1 Gm In Dextrose Duplex (*)) 1 gm in 50 mls @ 200 mls/hr IVPB Q8H [facility] Stop: 11/26/17 19:44 Last Admin: 11/26/17 12:17 Dose: 200 mls/hr Lactated Ringer's (Lactated Ringers 1000 Ml Bag*) 1,000 mls @ 100 mls/hr IV PER RATE [facility] Last Admin: 11/25/17 23:21 Dose: 100 mls/hr Levalbuterol HCl (Xopenex 0.63mg/3ml Neb*) 0.63 mg INH ONCE PRN PRN Reason: SOB/WHEEZING Levothyroxine Sodium (Synthroid Tab*) 50 mcg PO 0600 [facility] Last Admin: 11/26/17 05:18 Dose: 50 mcg Lorazepam (Ativan Tab(*)) 0 - 6 mg PO .PER [facility] PROTOCOL [facility] PRN Reason: Protocol Magnesium Hydroxide (Milk Of Magnesia Liq*) 30 ml PO BID [facility] Last Admin: 11/26/17 10:55 Dose: 30 ml Magnesium Hydroxide (Milk Of Magnesia Liq*) 30 ml PO Q6H PRN PRN Reason: constipation Metoprolol Succinate (Toprol Xl Tab*) 75 mg PO DAILY [facility] Last Admin: 11/26/17 11:50 Dose: Not Given Morphine Sulfate (Morphine Vial*) 2 mg IV Q2H PRN PRN Reason: PAIN - MILD Last Admin: 11/25/17 15:18 Dose: 2 mg Multivitamins/Minerals (Theragran/Minerals Tab*) 1 tab PO DAILY [facility] Last Admin: 11/26/17 10:51 Dose: Not Given Ondansetron HCl (Zofran Inj*) 4 mg IV Q6H PRN PRN Reason: NAUSEA Oxycodone/Acetaminophen (Percocet 5/325 Tab*) 2 tab PO Q4H PRN PRN Reason: PAIN Last Admin: 11/26/17 15:36 Dose: 2 tab Oxycodone/Acetaminophen (Percocet 5/325 Tab*) 1 tab PO Q4H PRN PRN Reason: PAIN Sertraline HCl (Zoloft*) 50 mg PO DAILY [facility] Last Admin: 11/26/17 10:51 Dose: 50 mg Thiamine HCl (Vitamin B-1 Tab*) 100 mg PO DAILY [facility] Last Admin: 11/26/17 10:51 Dose: 100 mg Valsartan (Diovan Tab*) 80 mg PO DAILY [facility] Last Admin: 11/26/17 10:50 Dose: 80 mg Vital Signs - 8 hr 11/26/17 11/26/17 11/26/17 10:50 11:21 11:47 Temperature 97.9 F Pulse Rate 52 Respiratory 16 20 Rate Blood Pressure 108/43 (mmHg) O2 Sat by Pulse 77 99 Oximetry 11/26/17 11/26/17 11/26/17 12:18 12:50 14:20 Temperature Pulse Rate Respiratory 15 16 16 Rate Blood Pressure (mmHg) O2 Sat by Pulse Oximetry 11/26/17 11/26/17 11/26/17 15:31 15:36 16:20 Temperature 97.9 F 98.5 F Pulse Rate 90 92 Respiratory 16 16 14 Rate Blood Pressure 93/43 93/47 (mmHg) O2 Sat by Pulse 95 94 Oximetry Oxygen Devices in Use Now: Nasal Cannula Appearance: Alert, NAD Ears/Nose/Mouth/Throat: Mucous Membranes Moist Neck: NL Appearance and Movements; NL JVP, Trachea Midline Respiratory: Symmetrical Chest Expansion and Respiratory Effort, - - diminished , no rhonchi or rales Cardiovascular: NL Sounds; No Murmurs; No JVD, RRR, No Edema Skin: No Rash or Ulcers Neurological: Alert and Oriented x 3, NL Sensation Nutrition: Taking PO's Result Diagrams: 11/26/17 05:01 11/26/17 05:02 Additional Lab and Data: Lab Results 11/24/17 11/24/17 11/24/17 Range/Units 14:26 14:26 14:26 WBC 11.2 H (3.5-10.8) 10^3/ul RBC 3.06 L (4.0-5.4) 10^6/ul Hgb 11.0 L (12.0-16.0) g/dl Hct 32 L (35-47) % MCV 103 H (80-97) fL MCH 36 H (27-31) pg MCHC 35 (31-36) g/dl RDW 13 (10.5-15) % Plt Count 134 L (150-450) 10^3/ul MPV 6.9 L (7.4-10.4) um3 Neut % (Auto) 90.1 H (38-83) % Lymph % (Auto) 2.5 L (25-47) % [place] % (Auto) 6.9 (0-7) % Eos % (Auto) 0.2 (0-6) % Baso % (Auto) 0.3 (0-2) % Absolute Neuts (auto) 10.1 H (1.5-7.7) 10^3/ul Absolute Lymphs (auto) 0.3 L (1.0-4.8) 10^3/ul Absolute Monos (auto) 0.8 (0-0.8) 10^3/ul Absolute Eos (auto) 0 (0-0.6) 10^3/ul Absolute Basos (auto) 0 (0-0.2) 10^3/ul Absolute Nucleated RBC 0 10^3/ul Nucleated RBC % 0 INR (Anticoag Therapy) 1.01 (0.77-1.02) APTT 30.2 (26.0-36.3) seconds Sodium (139-145) mmol/L Potassium (3.5-5.0) mmol/L Chloride (101-111) mmol/L Carbon Dioxide (22-32) mmol/L Anion Gap (2-11) mmol/L BUN (6-24) mg/dL Creatinine (0.51-0.95) mg/dL Est GFR ( Amer) (>60) Est GFR (Non-Af Amer) (>60) BUN/Creatinine Ratio (8-20) Glucose (70-100) mg/dL Calcium (8.6-10.3) mg/dL Total Bilirubin (0.2-1.0) mg/dL AST (13-39) U/L ALT (7-52) U/L Alkaline Phosphatase (34-104) U/L Troponin I (<0.04) ng/mL Total Protein (6.4-8.9) g/dL Albumin (3.2-5.2) g/dL Globulin (2-4) g/dL Albumin/Globulin Ratio (1-3) Blood Type B Positive Antibody Screen Negative 11/24/17 Range/Units 14:26 WBC (3.5-10.8) 10^3/ul RBC (4.0-5.4) 10^6/ul Hgb (12.0-16.0) g/dl Hct (35-47) % MCV (80-97) fL MCH (27-31) pg MCHC (31-36) g/dl RDW (10.5-15) % Plt Count (150-450) 10^3/ul MPV (7.4-10.4) um3 Neut % (Auto) (38-83) % Lymph % (Auto) (25-47) % [place] % (Auto) (0-7) % Eos % (Auto) (0-6) % Baso % (Auto) (0-2) % Absolute Neuts (auto) (1.5-7.7) 10^3/ul Absolute Lymphs (auto) (1.0-4.8) 10^3/ul Absolute Monos (auto) (0-0.8) 10^3/ul Absolute Eos (auto) (0-0.6) 10^3/ul Absolute Basos (auto) (0-0.2) 10^3/ul Absolute Nucleated RBC 10^3/ul Nucleated RBC % INR (Anticoag Therapy) (0.77-1.02) APTT (26.0-36.3) seconds Sodium 128 L (139-145) mmol/L Potassium 4.0 (3.5-5.0) mmol/L Chloride 92 L (101-111) mmol/L Carbon Dioxide 27 (22-32) mmol/L Anion Gap 9 (2-11) mmol/L BUN 12 (6-24) mg/dL Creatinine 0.40 L (0.51-0.95) mg/dL Est GFR ( Amer) 202.9 (>60) Est GFR (Non-Af Amer) 157.8 (>60) BUN/Creatinine Ratio 30.0 H (8-20) Glucose 129 H (70-100) mg/dL Calcium 8.8 (8.6-10.3) mg/dL Total Bilirubin 0.70 (0.2-1.0) mg/dL AST 40 H (13-39) U/L ALT 32 (7-52) U/L Alkaline Phosphatase 80 (34-104) U/L Troponin I 0.00 (<0.04) ng/mL Total Protein 6.3 L (6.4-8.9) g/dL Albumin 3.7 (3.2-5.2) g/dL Globulin 2.6 (2-4) g/dL Albumin/Globulin Ratio 1.4 (1-3) Blood Type Antibody Screen Microbiology and Other Data: Microbiology 11/24/17 17:09 Urine Culture - Preliminary Urine Pseudomonas Aeruginosa Diagnostic Imaging: Patient Name: RADHA KEEN Medical Record#: [id number] Ordering Physician: Nathalia Kelly MD Acct.#: [id number] : 1945 Age: 72 Sex: F Location: EMERGENCY DEPARTMENT Exam Date: 11/24/17 1157 ADM Status: REG ER Order Information: FEMUR RIGHT Accession Number: [id number] CPT: 62452 Indication: Pelvis and RIGHT thigh pain post fall. Comparison: September 21, 2017 Technique: AP pelvis and AP and crosstable lateral views of the RIGHT hip and entire femur. Report: Bone density appears decreased throughout. Subcapital femoral neck fracture with mild impaction and slight valgus angulation. The femoral head remains located at the acetabulum. No additional fracture of the femur or pelvis evident. Negative for pelvic joint diastases. Healing response at the internally fixed LEFT intertrochanteric femur fracture with unchanged abundant callus formation and surrounding dystrophic bone formation compared with the September 21, 2017 exam. IMPRESSION: Subcapital femoral neck fracture with mild impaction and slight valgus angulation. The femoral head remains located at the acetabulum. No additional fracture of the femur or pelvis evident. <Electronically signed by Amando Nguyen MD in [facility]> 11/24/17 1325 Dictated By: Amando Nguyen MD Dictated Date/Time: 11/24/17 1325 Transcribed Date/Time: 11/24/17 1321 Copy to: Patient Name: RADHA KEEN Medical Record#: [id number] Ordering Physician: Nathalia Kelly MD Acct.#: [id number] : 1945 Age: 72 Sex: F Location: EMERGENCY DEPARTMENT Exam Date: 11/24/17 1402 ADM Status: REG ER Order Information: CHEST AP PORTABLE Accession Number: [id number] CPT: 18166 Indication: Raynaud's disease of the heart, hands, and feet severe. Oxygen dependent. COPD. Comparison: May 25, 2017 Technique: Upright AP 1444 hours Report: Severely elevated lung volumes. Rarefaction of interstitial markings. No focal pulmonary lesion, compelling alveolar consolidation, pleural effusion, pneumothorax. The heart, pulmonary vasculature, and mediastinal contours are unremarkable. Healed RIGHT seventh, eighth, and ninth rib fractures. Acute surgical neck fracture of the RIGHT humerus with severe varus angulation. IMPRESSION: 1. Stigmata of advanced chronic obstructive pulmonary disease and emphysema. 2. Acute surgical neck fracture of the RIGHT humerus with severe varus angulation. <Electronically signed by Amando Nguyen MD in [facility]> 11/24/17 1533 Dictated By: Amando Nguyen MD Dictated Date/Time: 11/24/17 1533 Transcribed Date/Time: 11/24/17 1521 Copy to: Assess/Plan/Problems-Billing Assessment: This is a 72 year old female with complex hx of COPD, mouth cancer, hypothyroidism, hypertension that sustained mechanical fall with subsequent right humerus fracture and right hip fracture. - Patient Problems (1) Subcapital fracture of neck of right femur Code(s): S72.011A - UNSP INTRACAPSULAR FRACTURE OF RIGHT FEMUR, INIT FOR CLOS FX SNOMED Code(s): 181105106 Comment: - POD1 ORIF - POC as per ortho, pain control - DVT prophy with SCDs (2) Right humeral fracture Code(s): S42.301A - UNSP FRACTURE OF SHAFT OF HUMERUS, RIGHT ARM, INIT SNOMED Code(s): 85607988 Comment: - Plan per orthopedics, continue sling, pain control - Ortho to determine when they will take her back to the OR - Patient remains medically optimized for OR after transfusion, goal HgB >8.0 (3) Postoperative anemia Code(s): D64.9 - ANEMIA, UNSPECIFIED SNOMED Code(s): 972423339 Comment: - Transfuse today, goal HgB >8.0 (4) Hyponatremia Code(s): E87.1 - HYPO-OSMOLALITY AND HYPONATREMIA SNOMED Code(s): 33399101 Comment: - Likely SIADH - Fluid restrict next 48 hours and monitor (5) COPD (chronic obstructive pulmonary disease) Code(s): J44.9 - CHRONIC OBSTRUCTIVE PULMONARY DISEASE, UNSPECIFIED SNOMED Code(s): 54737144 Comment: - No signs of exacerbation - Continue Symbicort - Continue supplemental O2 @ 2L NC - Aggressive post-operative pulmonary toilet with IS and flutter valve (6) CAD (coronary artery disease) Code(s): I25.10 - ATHSCL HEART DISEASE OF [place] CORONARY ARTERY W/O ANG PCTRS SNOMED Code(s): 71165309 Comment: - Continue statin - Restart ASA when clear by surgery (7) HTN (hypertension) Code(s): I10 - ESSENTIAL (PRIMARY) HYPERTENSION SNOMED Code(s): 66764418 Comment: - Per record patient states her BP was high prior to admission - Currently stable, continue home BP meds (8) Physical deconditioning Code(s): R53.81 - OTHER MALAISE SNOMED Code(s): 33005625419126 Comment: - This is the patient's second fall with fractures in 6 months (left hip fx in April), will likely need rehab at [facility] (9) DVT prophylaxis Code(s): NTN5576 - SNOMED Code(s): 349483581 Comment: - HSQ (10) Full code status Code(s): Z78.9 - OTHER SPECIFIED HEALTH STATUS SNOMED Code(s): 238393435 Status and Disposition: Remains medically optimized for next OR procedure.
[2017-11-26] MEDS ORDERED: Haloperidol INJ IV/IM* 5 MG/ML AMP IV SLOW PU ONE (23:36)
[2017-11-27] MEDS ORDERED: Haloperidol INJ IV/IM* 5 MG/ML AMP IV SLOW PU ONE (04:06)
[2017-11-27] MEDS: Levothyroxine TAB* 50 MCG TAB PO SCH (04:15)
[2017-11-27 07:24] LABS: Hematocrit 24 % (35-47); Hemoglobin 8.5 g/dl (12.0-16.0); Mean Corpuscular HGB Conc 36 g/dl (31-36); Mean Corpuscular Hemoglobin 34 pg (27-31); Mean Corpuscular Volume 96 fL (80-97); Mean Platelet Volume 6.7 um3 (7.4-10.4); Platelet Count 100 10^3/ul (150-450); Red Cell Distribution Width 20 % (10.5-15)
[2017-11-27 07:40] LABS: ABS Basophils 0 10^3/ul (0-0.2); ABS Eosinophils 0 10^3/ul (0-0.6); ABS Lymphocytes 0.2 10^3/ul (1.0-4.8); ABS Monocytes 0.8 10^3/ul (0-0.8); ABS Neutrophils 8.1 10^3/ul (1.5-7.7); ABS Nucleated RBC 0 10^3/ul; Eosinophil % 0 % (0-6); Lymphocyte % 1.7 % (25-47); Nucleated Red Blood Cells % 0
[2017-11-27] MEDS: PTO:Albuterol/Ipratropium RESP(NF) MDI (Combivent Respimat) INH PRN (08:44)
[2017-11-27] MEDS: Atorvastatin* 10 MG TAB PO SCH (08:48)
[2017-11-27] MEDS: Valsartan TAB* 80 MG PO SCH (08:48)
[2017-11-27] MEDS: Sertraline* 50 MG TAB PO SCH (08:48)
[2017-11-27] MEDS: Thiamine TAB* 100 MG TAB PO SCH (08:48)
[2017-11-27] MEDS: Folic Acid TAB* 1 MG PO SCH (08:48)
[2017-11-27] MEDS: oxyCODONE/Acetamin 5/325 MG* TAB PO PRN (08:49)
[2017-11-27] MEDS: Magnesium Hydroxide LIQ* 30 ML UDC PO SCH ×2 (08:54→21:07)
[2017-11-27] MEDS: PTO:Budesonide/Formote 160/4.5(NF) MDI INH SCH ×2 (08:55→21:13)
[2017-11-27] MEDS: Enoxaparin(*) 30 MG/0.3 ML SYR SUBCUT SCH ×2 (08:59→15:54)
[2017-11-27] MEDS: Multivitamins/Minerals TAB PO SCH (09:03)
[2017-11-27] MEDS: Metoprolol Succinate XL TAB* 50 MG PO SCH (11:25)
[2017-11-27] MEDS: Aspirin 81 mg CHEW TAB* 81 MG TAB.CHEW PO SCH ×2 (11:29→21:00)
[2017-11-27] MEDS: Cyclobenzaprine TAB* 10 MG PO PRN (11:45)
--- NOTE | 2017-11-27 13:28 | PN ---
Progress Note - Progress Note Date of Service: 11/27/17 SOAP: Subjective: []Patient seen at bedside. She is in more pain today, reporting her right arm and right leg are in 10/10 pain with movement, and 9/10 pain at rest. Denies CP , SOB, dizziness. Castellanos was reinserted due to urinary retention. She is being treated for UTI with bactrim. She has been hypotensive and more confused today. Objective: [] Vital Signs Temp 98.1 F 11/27/17 11:00 Pulse 98 11/27/17 11:00 Resp 15 11/27/17 11:45 BP 88/37 11/27/17 11:00 Pulse Ox 95 11/27/17 11:00 Intake & Output 11/26/17 11/27/17 11/27/17 18:59 06:59 18:59 Intake Total 1794 2951 630 Output Total 0 425 Balance 1794 2951 205 Intake: IV Fluids 1174 1377 ABX - CEFAZOLIN 50 LR bolus 997 NS (0.9%) 1174 330 IVPB 70 ABX - CEFAZOLIN 70 Oral 550 1240 630 Packed Cells 334 Output: Urine 0 Castellanos 425 Other: # Bowel Movements 0 Laboratory Last Values WBC 9.0 10^3/ul (3.5-10.8) 11/27/17 07:06 RBC 2.50 10^6/ul (4.0-5.4) L 11/27/17 07:06 Hgb 8.5 g/dl (12.0-16.0) L 11/27/17 07:06 Hct 24 % (35-47) L 11/27/17 07:06 MCV 96 fL (80-97) 11/27/17 07:06 MCH 34 pg (27-31) H 11/27/17 07:06 MCHC 36 g/dl (31-36) 11/27/17 07:06 RDW 20 % (10.5-15) H 11/27/17 07:06 Plt Count 100 10^3/ul (150-450) L 11/27/17 07:06 MPV 6.7 um3 (7.4-10.4) L 11/27/17 07:06 Neut % (Auto) 89.8 % (38-83) H 11/27/17 07:06 Lymph % (Auto) 1.7 % (25-47) L 11/27/17 07:06 [place] % (Auto) 8.4 % (0-7) H 11/27/17 07:06 Eos % (Auto) 0 % (0-6) 11/27/17 07:06 Baso % (Auto) 0.1 % (0-2) 11/27/17 07:06 Absolute Neuts (auto) 8.1 10^3/ul (1.5-7.7) H 11/27/17 07:06 Absolute Lymphs (auto) 0.2 10^3/ul (1.0-4.8) L 11/27/17 07:06 Absolute Monos (auto) 0.8 10^3/ul (0-0.8) 11/27/17 07:06 Absolute Eos (auto) 0 10^3/ul (0-0.6) 11/27/17 07:06 Absolute Basos (auto) 0 10^3/ul (0-0.2) 11/27/17 07:06 Absolute Nucleated RBC 0 10^3/ul 11/27/17 07:06 Nucleated RBC % 0 11/27/17 07:06 INR (Anticoag Therapy) 0.97 (0.77-1.02) 11/25/17 05:09 APTT 30.2 seconds (26.0-36.3) 11/24/17 14:26 Sodium 126 mmol/L (139-145) L 11/26/17 05:02 Potassium 4.3 mmol/L (3.5-5.0) 11/26/17 05:02 Chloride 98 mmol/L (101-111) L 11/26/17 05:02 Carbon Dioxide 27 mmol/L (22-32) 11/26/17 05:02 Anion Gap 1 mmol/L (2-11) L 11/26/17 05:02 BUN 11 mg/dL (6-24) 11/26/17 05:02 Creatinine 0.54 mg/dL (0.51-0.95) 11/26/17 05:02 Est GFR ( Amer) 143.5 (>60) 11/26/17 05:02 Est GFR (Non-Af Amer) 111.6 (>60) 11/26/17 05:02 BUN/Creatinine Ratio 20.4 (8-20) H 11/26/17 05:02 Glucose 120 mg/dL (70-100) H 11/26/17 05:02 Serum Osmolality 274 mOsm/kg (275-295) L 11/25/17 05:09 Calcium 8.0 mg/dL (8.6-10.3) L 11/26/17 05:02 Total Bilirubin 0.70 mg/dL (0.2-1.0) 11/24/17 14:26 AST 40 U/L (13-39) H 11/24/17 14:26 ALT 32 U/L (7-52) 11/24/17 14:26 Alkaline Phosphatase 80 U/L (34-104) 11/24/17 14:26 Troponin I 0.00 ng/mL (<0.04) 11/24/17 14:26 Total Protein 6.3 g/dL (6.4-8.9) L 11/24/17 14:26 Albumin 3.7 g/dL (3.2-5.2) 11/24/17 14:26 Globulin 2.6 g/dL (2-4) 11/24/17 14:26 Albumin/Globulin Ratio 1.4 (1-3) 11/24/17 14:26 TSH 2.09 mcIU/mL (0.34-5.60) 11/25/17 05:09 Cortisol 24.91 mcg/dL 11/25/17 05:09 Urine Color Yellow 11/24/17 17:09 Urine Appearance Cloudy 11/24/17 17:09 Urine pH 7.0 (5-9) 11/24/17 17:09 Ur Specific [place] 1.010 (1.010-1.030) 11/24/17 17:09 Urine Protein Negative (Negative) 11/24/17 17:09 Urine Ketones Negative (Negative) 11/24/17 17:09 Urine Blood Negative (Negative) 11/24/17 17:09 Urine Nitrate Negative (Negative) 11/24/17 17:09 Urine Bilirubin Negative (Negative) 11/24/17 17:09 Urine Urobilinogen Negative (Negative) 11/24/17 17:09 Ur Leukocyte Esterase 3+ (Negative) A 11/24/17 17:09 Urine WBC (Auto) 3+(>20/hpf) (Absent) A 11/24/17 17:09 Urine RBC (Auto) 3+(>10/hpf) (Absent) A 11/24/17 17:09 Ur Squamous Epith Cells Present (Absent) A 11/24/17 17:09 Ur Transition Epith Cell Present (Absent) A 11/24/17 17:09 Urine Bacteria Absent (Absent) 11/24/17 17:09 Urine Osmolality 613 mOsm/kg (150-1150) 11/25/17 10:06 Ur Random Creatinine 131.83 mg/dL 11/25/17 10:06 Ur Random Sodium < 18 mmol/L 11/25/17 10:06 Renal Sodium Excretion 0.04 % 11/25/17 10:06 Urine Glucose Negative (Negative) 11/24/17 17:09 Urine Ascorbic Acid * (Negative) A 11/24/17 17:09 Blood Type B Positive 11/24/17 14:26 Antibody Screen Negative 11/24/17 14:26 Crossmatch See Detail 11/24/17 14:26 General: NAD, laying in bed. RLE: Dressing changed by Dr Castillo this morning. Reinforced with tape, dressing clean and dry. DF/PF intact. DF/PF intact. Sensation intact distally. 2+ dp pulse. BL LE: Calves supple and nontender. Capillary refill less than two seconds distally. RLE: Splint in place, ecchymosis of RUE. Upper arm tender, supple. Forearm nontender, warm and supple. Sensation intact throughout right hand, radial pulse 2+, able to flex and extend wrist. able to flex, extend, abduct and adduct all digits. Sensation intact throughout all digits. Assessment: []POD 2 sp right hip hemiarthroplasty Right humerous fracture awaiting fixation Acute bloodloss anemia Hyponatremia Urinary retention UTI Plan: []Humerus ORIF tomorrow NPO at midnight Lovenox DVT prophylaxis, hold 5/2 dose WBAT RLE as safely able due to same side humorous fracture resulting in NWB RUE Manual BPs with pediatric cuff. Recheck H&H, sodium in the morning
[2017-11-27] MEDS ORDERED: ALPRAZolam TAB* 0.25 MG PO PRN (15:39)
[2017-11-27] MEDS ORDERED: LORazepam INJ* 2 MG/ML 1 ML VIAL IV PUSH ONE (15:49)
--- NOTE | 2017-11-27 17:49 | PN ---
Subjective Date of Service: 11/27/17 Interval History: Ms. Keen has no complaints, she is anxious to go to the OR tomorrow. Her expresses concern about confusion, but she adamantly denies that she has been confused and even gets angry at him when he suggests it. Her pain is controlled. Objective Active Medications: Acetaminophen (Tylenol Tab*) 650 mg PO Q4H PRN PRN Reason: FEVER/PAIN Albuterol (Ventolin 2.5 Mg/3 Ml Neb.Beulah*) 2.5 mg INH Q4H PRN PRN Reason: SOB/WHEEZING Albuterol/Ipratropium (Combivent Respimat(Nf)) 2 puff INH Q6HR PRN; Protocol PRN Reason: SOB/WHEEZING Last Admin: 11/27/17 08:44 Dose: 2 puff Alprazolam (Xanax Tab*) 0.5 mg PO DAILY PRN PRN Reason: ANXIETY Aspirin (Aspirin 81 Mg Chew Tab*) 81 mg PO 2000 [facility] Atorvastatin Calcium (Lipitor*) 10 mg PO DAILY [facility] Last Admin: 11/27/17 08:48 Dose: 10 mg Budesonide/Formoterol Fumarate (Symbicort 160/4.5 (Nf)) 2 puff INH BID QI PRN Reason: Protocol Last Admin: 11/27/17 08:55 Dose: 2 puff Cyclobenzaprine HCl (Flexeril Tab*) 10 mg PO BID PRN PRN Reason: SPASMS Last Admin: 11/27/17 11:45 Dose: 10 mg Diphenhydramine HCl (Benadryl Iv*) 25 mg IV Q6H PRN PRN Reason: itching Enoxaparin Sodium (Lovenox(*)) 30 mg SUBCUT Q24H [facility] Last Admin: 11/27/17 15:54 Dose: Not Given Folic Acid (Folvite Tab*) 1 mg PO DAILY [facility] Last Admin: 11/27/17 08:48 Dose: 1 mg Lactated Ringer's (Lactated Ringers 1000 Ml Bag*) 1,000 mls @ 100 mls/hr IV PER RATE [facility] Last Admin: 11/27/17 01:17 Dose: 100 mls/hr Levalbuterol HCl (Xopenex 0.63mg/3ml Neb*) 0.63 mg INH ONCE PRN PRN Reason: SOB/WHEEZING Levothyroxine Sodium (Synthroid Tab*) 50 mcg PO 0600 [facility] Last Admin: 11/27/17 04:15 Dose: 50 mcg Lorazepam (Ativan Tab(*)) 0 - 6 mg PO .PER [facility] PROTOCOL QI PRN Reason: Protocol Magnesium Hydroxide (Milk Of Magnesia Liq*) 30 ml PO BID [facility] Last Admin: 11/27/17 08:54 Dose: Not Given Magnesium Hydroxide (Milk Of Magnesia Liq*) 30 ml PO Q6H PRN PRN Reason: constipation Metoprolol Succinate (Toprol Xl Tab*) 75 mg PO DAILY [facility] Last Admin: 11/27/17 11:25 Dose: Not Given Morphine Sulfate (Morphine Vial*) 2 mg IV Q2H PRN PRN Reason: PAIN - MILD Last Admin: 11/25/17 15:18 Dose: 2 mg Multivitamins/Minerals (Theragran/Minerals Tab*) 1 tab PO DAILY [facility] Last Admin: 11/27/17 09:03 Dose: Not Given Ondansetron HCl (Zofran Inj*) 4 mg IV Q6H PRN PRN Reason: NAUSEA Oxycodone/Acetaminophen (Percocet 5/325 Tab*) 2 tab PO Q4H PRN PRN Reason: PAIN Last Admin: 11/27/17 08:49 Dose: 2 tab Oxycodone/Acetaminophen (Percocet 5/325 Tab*) 1 tab PO Q4H PRN PRN Reason: PAIN Sertraline HCl (Zoloft*) 50 mg PO DAILY [facility] Last Admin: 11/27/17 08:48 Dose: 50 mg Thiamine HCl (Vitamin B-1 Tab*) 100 mg PO DAILY [facility] Last Admin: 11/27/17 08:48 Dose: 100 mg Trimethoprim/Sulfamethoxazole (Bactrim Ds 800/160 Tab*) 1 tab PO BID [facility] Valsartan (Diovan Tab*) 80 mg PO DAILY [facility] Last Admin: 11/27/17 08:48 Dose: 80 mg Vital Signs - 8 hr 11/27/17 11/27/17 11/27/17 11:00 11:45 14:00 Temperature 98.1 F Pulse Rate 98 Respiratory 18 15 16 Rate Blood Pressure 88/37 (mmHg) O2 Sat by Pulse 95 Oximetry 11/27/17 11/27/17 15:26 16:03 Temperature 98.8 F Pulse Rate 125 Respiratory 16 18 Rate Blood Pressure 123/64 (mmHg) O2 Sat by Pulse 93 Oximetry Oxygen Devices in Use Now: Nasal Cannula Appearance: alert, no distress, anxious, oriented but paranoid Eyes: No Scleral Icterus Ears/Nose/Mouth/Throat: NL Teeth, Lips, Gums Neck: NL Appearance and Movements; NL JVP Respiratory: Symmetrical Chest Expansion and Respiratory Effort, - - good air movement, kyphosis, with few expiratory wheezes Cardiovascular: - - tachycardic, no murmurs, PMI nondisplaced Abdominal: NL Sounds; No Tenderness; No Distention, No Hepatosplenomegaly Lymphatic: No Cervical Adenopathy Extremities: - - right upper extremity in luisito wrap and sling. right hip with nancy, no drainage or erythema Neurological: Alert and Oriented x 3, - - oriented but anxious, easily angered Result Diagrams: 11/27/17 07:06 11/26/17 05:02 Additional Lab and Data: Lab Results 11/24/17 11/24/17 11/24/17 Range/Units 14:26 14:26 14:26 WBC 11.2 H (3.5-10.8) 10^3/ul RBC 3.06 L (4.0-5.4) 10^6/ul Hgb 11.0 L (12.0-16.0) g/dl Hct 32 L (35-47) % MCV 103 H (80-97) fL MCH 36 H (27-31) pg MCHC 35 (31-36) g/dl RDW 13 (10.5-15) % Plt Count 134 L (150-450) 10^3/ul MPV 6.9 L (7.4-10.4) um3 Neut % (Auto) 90.1 H (38-83) % Lymph % (Auto) 2.5 L (25-47) % [place] % (Auto) 6.9 (0-7) % Eos % (Auto) 0.2 (0-6) % Baso % (Auto) 0.3 (0-2) % Absolute Neuts (auto) 10.1 H (1.5-7.7) 10^3/ul Absolute Lymphs (auto) 0.3 L (1.0-4.8) 10^3/ul Absolute Monos (auto) 0.8 (0-0.8) 10^3/ul Absolute Eos (auto) 0 (0-0.6) 10^3/ul Absolute Basos (auto) 0 (0-0.2) 10^3/ul Absolute Nucleated RBC 0 10^3/ul Nucleated RBC % 0 INR (Anticoag Therapy) 1.01 (0.77-1.02) APTT 30.2 (26.0-36.3) seconds Sodium (139-145) mmol/L Potassium (3.5-5.0) mmol/L Chloride (101-111) mmol/L Carbon Dioxide (22-32) mmol/L Anion Gap (2-11) mmol/L BUN (6-24) mg/dL Creatinine (0.51-0.95) mg/dL Est GFR ( Amer) (>60) Est GFR (Non-Af Amer) (>60) BUN/Creatinine Ratio (8-20) Glucose (70-100) mg/dL Calcium (8.6-10.3) mg/dL Total Bilirubin (0.2-1.0) mg/dL AST (13-39) U/L ALT (7-52) U/L Alkaline Phosphatase (34-104) U/L Troponin I (<0.04) ng/mL Total Protein (6.4-8.9) g/dL Albumin (3.2-5.2) g/dL Globulin (2-4) g/dL Albumin/Globulin Ratio (1-3) Blood Type B Positive Antibody Screen Negative 11/24/17 Range/Units 14:26 WBC (3.5-10.8) 10^3/ul RBC (4.0-5.4) 10^6/ul Hgb (12.0-16.0) g/dl Hct (35-47) % MCV (80-97) fL MCH (27-31) pg MCHC (31-36) g/dl RDW (10.5-15) % Plt Count (150-450) 10^3/ul MPV (7.4-10.4) um3 Neut % (Auto) (38-83) % Lymph % (Auto) (25-47) % [place] % (Auto) (0-7) % Eos % (Auto) (0-6) % Baso % (Auto) (0-2) % Absolute Neuts (auto) (1.5-7.7) 10^3/ul Absolute Lymphs (auto) (1.0-4.8) 10^3/ul Absolute Monos (auto) (0-0.8) 10^3/ul Absolute Eos (auto) (0-0.6) 10^3/ul Absolute Basos (auto) (0-0.2) 10^3/ul Absolute Nucleated RBC 10^3/ul Nucleated RBC % INR (Anticoag Therapy) (0.77-1.02) APTT (26.0-36.3) seconds Sodium 128 L (139-145) mmol/L Potassium 4.0 (3.5-5.0) mmol/L Chloride 92 L (101-111) mmol/L Carbon Dioxide 27 (22-32) mmol/L Anion Gap 9 (2-11) mmol/L BUN 12 (6-24) mg/dL Creatinine 0.40 L (0.51-0.95) mg/dL Est GFR ( Amer) 202.9 (>60) Est GFR (Non-Af Amer) 157.8 (>60) BUN/Creatinine Ratio 30.0 H (8-20) Glucose 129 H (70-100) mg/dL Calcium 8.8 (8.6-10.3) mg/dL Total Bilirubin 0.70 (0.2-1.0) mg/dL AST 40 H (13-39) U/L ALT 32 (7-52) U/L Alkaline Phosphatase 80 (34-104) U/L Troponin I 0.00 (<0.04) ng/mL Total Protein 6.3 L (6.4-8.9) g/dL Albumin 3.7 (3.2-5.2) g/dL Globulin 2.6 (2-4) g/dL Albumin/Globulin Ratio 1.4 (1-3) Blood Type Antibody Screen Microbiology and Other Data: Microbiology 11/24/17 17:09 Urine Culture - Preliminary Urine Pseudomonas Aeruginosa Diagnostic Imaging: Patient Name: RADHA KEEN Medical Record#: [id number] Ordering Physician: Nathalia Kelly MD Acct.#: [id number] : 1945 Age: 72 Sex: F Location: EMERGENCY DEPARTMENT Exam Date: 11/24/17 1157 ADM Status: REG ER Order Information: FEMUR RIGHT Accession Number: [id number] CPT: 16873 Indication: Pelvis and RIGHT thigh pain post fall. Comparison: September 21, 2017 Technique: AP pelvis and AP and crosstable lateral views of the RIGHT hip and entire femur. Report: Bone density appears decreased throughout. Subcapital femoral neck fracture with mild impaction and slight valgus angulation. The femoral head remains located at the acetabulum. No additional fracture of the femur or pelvis evident. Negative for pelvic joint diastases. Healing response at the internally fixed LEFT intertrochanteric femur fracture with unchanged abundant callus formation and surrounding dystrophic bone formation compared with the September 21, 2017 exam. IMPRESSION: Subcapital femoral neck fracture with mild impaction and slight valgus angulation. The femoral head remains located at the acetabulum. No additional fracture of the femur or pelvis evident. <Electronically signed by Amando Nguyen MD in [facility]> 11/24/17 1325 Dictated By: Amando Nguyen MD Dictated Date/Time: 11/24/17 1325 Transcribed Date/Time: 11/24/17 1321 Copy to: Patient Name: RADHA KEEN Medical Record#: [id number] Ordering Physician: Nathalia Kelly MD Acct.#: [id number] : 1945 Age: 72 Sex: F Location: EMERGENCY DEPARTMENT Exam Date: 11/24/17 1402 ADM Status: REG ER Order Information: CHEST AP PORTABLE Accession Number: [id number] CPT: 24233 Indication: Raynaud's disease of the heart, hands, and feet severe. Oxygen dependent. COPD. Comparison: May 25, 2017 Technique: Upright AP 1444 hours Report: Severely elevated lung volumes. Rarefaction of interstitial markings. No focal pulmonary lesion, compelling alveolar consolidation, pleural effusion, pneumothorax. The heart, pulmonary vasculature, and mediastinal contours are unremarkable. Healed RIGHT seventh, eighth, and ninth rib fractures. Acute surgical neck fracture of the RIGHT humerus with severe varus angulation. IMPRESSION: 1. Stigmata of advanced chronic obstructive pulmonary disease and emphysema. 2. Acute surgical neck fracture of the RIGHT humerus with severe varus angulation. <Electronically signed by Amando Nguyen MD in [facility]> 11/24/17 1533 Dictated By: Amando Nguyen MD Dictated Date/Time: 11/24/17 1533 Transcribed Date/Time: 11/24/17 1521 Copy to: Assess/Plan/Problems-Billing Assessment: This is a 72 year old female with complex hx of COPD, mouth cancer, hypothyroidism, hypertension that sustained mechanical fall with subsequent right humerus fracture and right hip fracture. She is POD #1 from right hip ORIF , and there are plans for the OR tomorrow for the right humerus fracture. - Patient Problems (1) Delirium Current Visit: No Status: Acute Code(s): R41.0 - DISORIENTATION, UNSPECIFIED SNOMED Code(s): 6541653 Comment: consistent with prior exposure to anesthesia, narcotics, and hospitalization as documented in April admission also may be exacerbated by UTI also has etoh history, but has not scored on the wam protocol and has never experienced withdrawal also was only getting half of her home xanax dose minimize narcotics check ammonia (2) Postoperative anemia Current Visit: Yes Status: Acute Code(s): D64.9 - ANEMIA, UNSPECIFIED SNOMED Code(s): 159022405 Comment: s/p 1U PRBCs today, goal hgb >8.0 hold off on blood today and recheck tomorrow pre-op (3) Right humeral fracture Current Visit: Yes Status: Acute Code(s): S42.301A - UNSP FRACTURE OF SHAFT OF HUMERUS, RIGHT ARM, INIT SNOMED Code(s): 19936616 Comment: OR tomorrow (4) Closed left hip fracture Current Visit: No Status: Acute Code(s): S72.002A - FRACTURE OF UNSP PART OF NECK OF LEFT FEMUR, INIT SNOMED Code(s): 920568238 Comment: POD #2 ORIF (5) Hyponatremia Current Visit: No Status: Acute Code(s): E87.1 - HYPO-OSMOLALITY AND HYPONATREMIA SNOMED Code(s): 35702078 Comment: chronic and at baseline this does not need to be addressed acutely, but can be contributing to her recurrent falls, now with 2 hip fractures and a humerus fracture in the past 6 months I would consider a -vaptan for her long-term (6) Physical deconditioning Current Visit: No Status: Acute Code(s): R53.81 - OTHER MALAISE SNOMED Code(s): 23262256816394 Comment: plan for rehab long-term (7) UTI (urinary tract infection) Current Visit: Yes Status: Acute Comment: tmp/smx started today, however the culture is now growing pseudomonas, which will not be covered by tmp/smx start pip/tazo now (allergic to quinolones) Status and Disposition: will follow up tomorrow morning pre-op
[2017-11-27] MEDS ORDERED: Metoprolol Tartrate TAB* 25 MG PO SCH (18:00)
[2017-11-27] MEDS ORDERED: ZOSYN 3.375 GM x ONE DOSE over 30 miuntes IVPB ×2 (18:30)
[2017-11-27] MEDS ORDERED: Sulfamethox/Trimethoprim DS 800/160* TAB PO SCH (21:00)
[2017-11-27] MEDS: Metoprolol Tartrate TAB* 25 MG PO SCH (21:00)
[2017-11-27] MEDS: Piperacillin/Tazobac ADVAN(*) 3.375 GM in NS 0.9% 100 ML* 100 ML IVPB SCH (23:03)
[2017-11-28] MEDS: LORazepam TAB(*) 1 MG PO SCH ×2 (00:21→08:00)
[2017-11-28] MEDS: Levothyroxine TAB* 50 MCG TAB PO SCH (05:40)
[2017-11-28 06:44] LABS: Hematocrit 22 % (35-47); Hemoglobin 7.8 g/dl (12.0-16.0); Mean Corpuscular HGB Conc 36 g/dl (31-36); Mean Corpuscular Hemoglobin 34 pg (27-31); Mean Corpuscular Volume 97 fL (80-97); Platelet Count 113 10^3/ul (150-450); Red Blood Count 2.28 10^6/ul (4.0-5.4); Red Cell Distribution Width 19 % (10.5-15); White Blood Count 5.2 10^3/ul (3.5-10.8)
[2017-11-28 07:05] LABS: EGFR Non-African American 119.2 (>60)
[2017-11-28] MEDS: PTO:Budesonide/Formote 160/4.5(NF) MDI INH SCH ×2 (08:04→21:37)
[2017-11-28] MEDS: Piperacillin/Tazobac ADVAN(*) 3.375 GM in NS 0.9% 100 ML* 100 ML IVPB SCH ×2 (08:26→15:56)
[2017-11-28] MEDS ORDERED: NS 0.9% 500 ML* 500 ML IV ONE ×2 (08:31→23:47)
--- NOTE | 2017-11-28 08:35 | PN ---
Subjective Date of Service: 11/28/17 Interval History: Continued to be confused overnight, but her thinks she is a little better. She says she feels groggy this morning. No pain. No chest pain, shortness of breath, nausea, vomiting Objective Active Medications: Acetaminophen (Tylenol Tab*) 650 mg PO Q4H PRN PRN Reason: FEVER/PAIN Albuterol (Ventolin 2.5 Mg/3 Ml Neb.Beulah*) 2.5 mg INH Q4H PRN PRN Reason: SOB/WHEEZING Albuterol/Ipratropium (Combivent Respimat(Nf)) 2 puff INH Q6HR PRN; Protocol PRN Reason: SOB/WHEEZING Last Admin: 11/27/17 08:44 Dose: 2 puff Alprazolam (Xanax Tab*) 0.5 mg PO DAILY PRN PRN Reason: ANXIETY Aspirin (Aspirin 81 Mg Chew Tab*) 81 mg PO 1999 [facility] Last Admin: 11/27/17 21:00 Dose: 81 mg Atorvastatin Calcium (Lipitor*) 10 mg PO DAILY [facility] Last Admin: 11/27/17 08:48 Dose: 10 mg Budesonide/Formoterol Fumarate (Symbicort 160/4.5 (Nf)) 2 puff INH BID QI PRN Reason: Protocol Last Admin: 11/28/17 08:04 Dose: 2 puff Cyclobenzaprine HCl (Flexeril Tab*) 10 mg PO BID PRN PRN Reason: SPASMS Last Admin: 11/27/17 11:45 Dose: 10 mg Diphenhydramine HCl (Benadryl Iv*) 25 mg IV Q6H PRN PRN Reason: itching Enoxaparin Sodium (Lovenox(*)) 30 mg SUBCUT Q24H [facility] Last Admin: 11/27/17 15:54 Dose: Not Given Folic Acid (Folvite Tab*) 1 mg PO DAILY [facility] Last Admin: 11/27/17 08:48 Dose: 1 mg Lactated Ringer's (Lactated Ringers 1000 Ml Bag*) 1,000 mls @ 100 mls/hr IV PER RATE [facility] Last Admin: 11/27/17 01:17 Dose: 100 mls/hr Piperacillin Sod/Tazobactam (Sod 3.375 gm/ Sodium Chloride) 100 mls @ 25 mls/ hr IVPB Q8H [facility] Last Admin: 11/28/17 08:26 Dose: 25 mls/hr Sodium Chloride (Ns 0.9% 500 Ml*) 500 mls @ 1,000 mls/hr IV ONCE ONE Stop: 11/28/17 09:00 Levalbuterol HCl (Xopenex 0.63mg/3ml Neb*) 0.63 mg INH ONCE PRN PRN Reason: SOB/WHEEZING Levothyroxine Sodium (Synthroid Tab*) 50 mcg PO 0600 [facility] Last Admin: 11/28/17 05:40 Dose: Not Given Lorazepam (Ativan Tab(*)) 0 - 6 mg PO .PER [facility] PROTOCOL [facility] PRN Reason: Protocol Last Admin: 11/28/17 08:00 Dose: 2 mg Magnesium Hydroxide (Milk Of Magnesia Liq*) 30 ml PO BID [facility] Last Admin: 11/27/17 21:07 Dose: Not Given Magnesium Hydroxide (Milk Of Magnesia Liq*) 30 ml PO Q6H PRN PRN Reason: constipation Metoprolol Succinate (Toprol Xl Tab*) 75 mg PO DAILY [facility] Last Admin: 11/27/17 11:25 Dose: Not Given Metoprolol Tartrate (Lopressor Tab*) 37.5 mg PO 08,1999 [facility] Last Admin: 11/27/17 21:00 Dose: 37.5 mg Morphine Sulfate (Morphine Vial*) 2 mg IV Q2H PRN PRN Reason: PAIN - MILD Last Admin: 11/25/17 15:18 Dose: 2 mg Multivitamins/Minerals (Theragran/Minerals Tab*) 1 tab PO DAILY [facility] Last Admin: 11/27/17 09:03 Dose: Not Given Ondansetron HCl (Zofran Inj*) 4 mg IV Q6H PRN PRN Reason: NAUSEA Oxycodone/Acetaminophen (Percocet 5/325 Tab*) 2 tab PO Q4H PRN PRN Reason: PAIN Last Admin: 11/27/17 08:49 Dose: 2 tab Oxycodone/Acetaminophen (Percocet 5/325 Tab*) 1 tab PO Q4H PRN PRN Reason: PAIN Sertraline HCl (Zoloft*) 50 mg PO DAILY [facility] Last Admin: 11/27/17 08:48 Dose: 50 mg Thiamine HCl (Vitamin B-1 Tab*) 100 mg PO DAILY [facility] Last Admin: 11/27/17 08:48 Dose: 100 mg Valsartan (Diovan Tab*) 80 mg PO DAILY [facility] Last Admin: 11/27/17 08:48 Dose: 80 mg Vital Signs - 8 hr 11/28/17 11/28/17 11/28/17 00:37 05:32 05:40 Temperature 99.3 F Pulse Rate 125 Respiratory 18 20 Rate Blood Pressure 115/71 (mmHg) O2 Sat by Pulse 95 97 Oximetry 11/28/17 11/28/17 11/28/17 07:17 08:00 08:13 Temperature 98.2 F Pulse Rate 123 108 Respiratory 22 18 Rate Blood Pressure 103/60 100/60 (mmHg) O2 Sat by Pulse 100 Oximetry Oxygen Devices in Use Now: Nasal Cannula Appearance: sleepy but alerts to voice, nontoxic, no distress Eyes: No Scleral Icterus Ears/Nose/Mouth/Throat: - - dry mucosa Neck: NL Appearance and Movements; NL JVP, - - flat jugular veins Respiratory: Symmetrical Chest Expansion and Respiratory Effort, - - occasional expiratory wheezes Cardiovascular: - - tachycardic Abdominal: NL Sounds; No Tenderness; No Distention Lymphatic: No Cervical Adenopathy Extremities: No Edema, - - left hip incision stapled, no drainage or erythema, right arm in luisito and sling, radial pulses 2+ Neurological: - - no asterixis, expresses paranoia and disorientation Result Diagrams: 11/28/17 06:24 11/28/17 06:24 Additional Lab and Data: Lab Results 11/24/17 11/24/17 11/24/17 Range/Units 14:26 14:26 14:26 WBC 11.2 H (3.5-10.8) 10^3/ul RBC 3.06 L (4.0-5.4) 10^6/ul Hgb 11.0 L (12.0-16.0) g/dl Hct 32 L (35-47) % MCV 103 H (80-97) fL MCH 36 H (27-31) pg MCHC 35 (31-36) g/dl RDW 13 (10.5-15) % Plt Count 134 L (150-450) 10^3/ul MPV 6.9 L (7.4-10.4) um3 Neut % (Auto) 90.1 H (38-83) % Lymph % (Auto) 2.5 L (25-47) % [place] % (Auto) 6.9 (0-7) % Eos % (Auto) 0.2 (0-6) % Baso % (Auto) 0.3 (0-2) % Absolute Neuts (auto) 10.1 H (1.5-7.7) 10^3/ul Absolute Lymphs (auto) 0.3 L (1.0-4.8) 10^3/ul Absolute Monos (auto) 0.8 (0-0.8) 10^3/ul Absolute Eos (auto) 0 (0-0.6) 10^3/ul Absolute Basos (auto) 0 (0-0.2) 10^3/ul Absolute Nucleated RBC 0 10^3/ul Nucleated RBC % 0 INR (Anticoag Therapy) 1.01 (0.77-1.02) APTT 30.2 (26.0-36.3) seconds Sodium (139-145) mmol/L Potassium (3.5-5.0) mmol/L Chloride (101-111) mmol/L Carbon Dioxide (22-32) mmol/L Anion Gap (2-11) mmol/L BUN (6-24) mg/dL Creatinine (0.51-0.95) mg/dL Est GFR ( Amer) (>60) Est GFR (Non-Af Amer) (>60) BUN/Creatinine Ratio (8-20) Glucose (70-100) mg/dL Calcium (8.6-10.3) mg/dL Total Bilirubin (0.2-1.0) mg/dL AST (13-39) U/L ALT (7-52) U/L Alkaline Phosphatase (34-104) U/L Troponin I (<0.04) ng/mL Total Protein (6.4-8.9) g/dL Albumin (3.2-5.2) g/dL Globulin (2-4) g/dL Albumin/Globulin Ratio (1-3) Blood Type B Positive Antibody Screen Negative 11/24/17 Range/Units 14:26 WBC (3.5-10.8) 10^3/ul RBC (4.0-5.4) 10^6/ul Hgb (12.0-16.0) g/dl Hct (35-47) % MCV (80-97) fL MCH (27-31) pg MCHC (31-36) g/dl RDW (10.5-15) % Plt Count (150-450) 10^3/ul MPV (7.4-10.4) um3 Neut % (Auto) (38-83) % Lymph % (Auto) (25-47) % [place] % (Auto) (0-7) % Eos % (Auto) (0-6) % Baso % (Auto) (0-2) % Absolute Neuts (auto) (1.5-7.7) 10^3/ul Absolute Lymphs (auto) (1.0-4.8) 10^3/ul Absolute Monos (auto) (0-0.8) 10^3/ul Absolute Eos (auto) (0-0.6) 10^3/ul Absolute Basos (auto) (0-0.2) 10^3/ul Absolute Nucleated RBC 10^3/ul Nucleated RBC % INR (Anticoag Therapy) (0.77-1.02) APTT (26.0-36.3) seconds Sodium 128 L (139-145) mmol/L Potassium 4.0 (3.5-5.0) mmol/L Chloride 92 L (101-111) mmol/L Carbon Dioxide 27 (22-32) mmol/L Anion Gap 9 (2-11) mmol/L BUN 12 (6-24) mg/dL Creatinine 0.40 L (0.51-0.95) mg/dL Est GFR ( Amer) 202.9 (>60) Est GFR (Non-Af Amer) 157.8 (>60) BUN/Creatinine Ratio 30.0 H (8-20) Glucose 129 H (70-100) mg/dL Calcium 8.8 (8.6-10.3) mg/dL Total Bilirubin 0.70 (0.2-1.0) mg/dL AST 40 H (13-39) U/L ALT 32 (7-52) U/L Alkaline Phosphatase 80 (34-104) U/L Troponin I 0.00 (<0.04) ng/mL Total Protein 6.3 L (6.4-8.9) g/dL Albumin 3.7 (3.2-5.2) g/dL Globulin 2.6 (2-4) g/dL Albumin/Globulin Ratio 1.4 (1-3) Blood Type Antibody Screen Microbiology and Other Data: Microbiology 11/24/17 17:09 Urine Culture - Preliminary Urine Pseudomonas Aeruginosa Diagnostic Imaging: Patient Name: RADHA KEEN Medical Record#: [id number] Ordering Physician: Nathalia Kelly MD Acct.#: [id number] : 1945 Age: 72 Sex: F Location: EMERGENCY DEPARTMENT Exam Date: 11/24/17 1157 ADM Status: REG ER Order Information: FEMUR RIGHT Accession Number: [id number] CPT: 69277 Indication: Pelvis and RIGHT thigh pain post fall. Comparison: September 21, 2017 Technique: AP pelvis and AP and crosstable lateral views of the RIGHT hip and entire femur. Report: Bone density appears decreased throughout. Subcapital femoral neck fracture with mild impaction and slight valgus angulation. The femoral head remains located at the acetabulum. No additional fracture of the femur or pelvis evident. Negative for pelvic joint diastases. Healing response at the internally fixed LEFT intertrochanteric femur fracture with unchanged abundant callus formation and surrounding dystrophic bone formation compared with the September 21, 2017 exam. IMPRESSION: Subcapital femoral neck fracture with mild impaction and slight valgus angulation. The femoral head remains located at the acetabulum. No additional fracture of the femur or pelvis evident. <Electronically signed by Amando Nguyen MD in [facility]> 11/24/17 1325 Dictated By: Amando Nguyen MD Dictated Date/Time: 11/24/17 1325 Transcribed Date/Time: 11/24/17 1321 Copy to: Patient Name: RADHA KEEN Medical Record#: [id number] Ordering Physician: Nathalia Kelly MD Acct.#: [id number] : 1945 Age: 72 Sex: F Location: EMERGENCY DEPARTMENT Exam Date: 11/24/17 1402 ADM Status: REG ER Order Information: CHEST AP PORTABLE Accession Number: [id number] CPT: 38366 Indication: Raynaud's disease of the heart, hands, and feet severe. Oxygen dependent. COPD. Comparison: May 25, 2017 Technique: Upright AP 1444 hours Report: Severely elevated lung volumes. Rarefaction of interstitial markings. No focal pulmonary lesion, compelling alveolar consolidation, pleural effusion, pneumothorax. The heart, pulmonary vasculature, and mediastinal contours are unremarkable. Healed RIGHT seventh, eighth, and ninth rib fractures. Acute surgical neck fracture of the RIGHT humerus with severe varus angulation. IMPRESSION: 1. Stigmata of advanced chronic obstructive pulmonary disease and emphysema. 2. Acute surgical neck fracture of the RIGHT humerus with severe varus angulation. <Electronically signed by Amando Nguyen MD in [facility]> 11/24/17 1533 Dictated By: Amando Nguyen MD Dictated Date/Time: 11/24/17 1533 Transcribed Date/Time: 11/24/17 1521 Copy to: Assess/Plan/Problems-Billing Assessment: This is a 72 year old female with complex hx of COPD, mouth cancer, hypothyroidism, hypertension that sustained mechanical fall with subsequent right humerus fracture and right hip fracture. She is POD #3 from right hip orif and needs right humerus fracture repaired. - Patient Problems (1) Right humeral fracture Current Visit: Yes Status: Acute Code(s): S42.301A - UNSP FRACTURE OF SHAFT OF HUMERUS, RIGHT ARM, INIT SNOMED Code(s): 63197344 Comment: I recommend postponing OR plans due to elevated risk in her current state Current elevated risk related to sepsis vs. etoh withdrawal vs. benzo withdrawal (2) Delirium Current Visit: No Status: Acute Code(s): R41.0 - DISORIENTATION, UNSPECIFIED SNOMED Code(s): 0511363 Comment: likely multifactorial and related to hospitalization, uti/sepsis, anesthesia, narcotics, and now with concern for benzo/etoh withdrawal make xanax standing (this is how she was taking it at home) continue wam protocol continue to treat uti with pip/tazo minimize narcotics at bedside to continue reorientation (3) Tachycardia Current Visit: Yes Status: Acute Code(s): R00.0 - TACHYCARDIA, UNSPECIFIED SNOMED Code(s): 8786934 Comment: concerning for sepsis (urinary source) vs. etoh withdrawal (drinks a bottle of wine each night) vs. benzo withdrawal (takes xanax scheduled at home ) vs. anemia check ekg today IVF now 1U PRBCs now (4) Postoperative anemia Current Visit: Yes Status: Acute Code(s): D64.9 - ANEMIA, UNSPECIFIED SNOMED Code(s): 711898776 Comment: got prbcs 5/1, now below 8 again transfuse 1 unit today (5) Closed left hip fracture Current Visit: No Status: Acute Code(s): S72.002A - FRACTURE OF UNSP PART OF NECK OF LEFT FEMUR, INIT SNOMED Code(s): 546495969 Comment: POD #3 ORIF (6) Hyponatremia Current Visit: No Status: Acute Code(s): E87.1 - HYPO-OSMOLALITY AND HYPONATREMIA SNOMED Code(s): 43289267 Comment: chronic and at baseline this does not need to be addressed acutely, but can be contributing to her recurrent falls, now with 2 hip fractures and a humerus fracture in the past 6 months I would consider a -vaptan for her custodial (7) Physical deconditioning Current Visit: No Status: Acute Code(s): R53.81 - OTHER MALAISE SNOMED Code(s): 64067092131157 Comment: plan for rehab custodial (8) UTI (urinary tract infection) Current Visit: Yes Status: Acute Comment: pip/tazo day 2 for pseudomonas ( allergic to quinolones) sensitivities pending Status and Disposition: will follow up tomorrow morning pre-op
[2017-11-28 08:59] LABS: ABS Basophils 0 10^3/ul (0-0.2); ABS Eosinophils 0.1 10^3/ul (0-0.6); ABS Lymphocytes 0.3 10^3/ul (1.0-4.8); ABS Monocytes 0.7 10^3/ul (0-0.8); ABS Neutrophils 4.2 10^3/ul (1.5-7.7); ABS Nucleated RBC 0 10^3/ul; Eosinophil % 1.2 % (0-6); Lymphocyte % 5.5 % (25-47); Nucleated Red Blood Cells % 0.1
--- NOTE | 2017-11-28 09:20 | PN ---
Progress Note - Progress Note Date of Service: 11/28/17 SOAP: Subjective: []Patient seen at bedside. She confirms pain of RUE and RLE but does not assign a numeric value. Her daughter is at her bedside. Denies CP or SOB. Objective: [] Laboratory Last Values WBC 5.2 10^3/ul (3.5-10.8) 11/28/17 06:24 RBC 2.28 10^6/ul (4.0-5.4) L 11/28/17 06:24 Hgb 7.8 g/dl (12.0-16.0) L 11/28/17 06:24 Hct 22 % (35-47) L 11/28/17 06:24 MCV 97 fL (80-97) 11/28/17 06:24 MCH 34 pg (27-31) H 11/28/17 06:24 MCHC 36 g/dl (31-36) 11/28/17 06:24 RDW 19 % (10.5-15) H 11/28/17 06:24 Plt Count 113 10^3/ul (150-450) L 11/28/17 06:24 MPV 7.0 um3 (7.4-10.4) L 11/28/17 06:24 Neut % (Auto) 80.3 % (38-83) 11/28/17 06:24 Lymph % (Auto) 5.5 % (25-47) L 11/28/17 06:24 [place] % (Auto) 12.8 % (0-7) H 11/28/17 06:24 Eos % (Auto) 1.2 % (0-6) 11/28/17 06:24 Baso % (Auto) 0.2 % (0-2) 11/28/17 06:24 Absolute Neuts (auto) 4.2 10^3/ul (1.5-7.7) 11/28/17 06:24 Absolute Lymphs (auto) 0.3 10^3/ul (1.0-4.8) L 11/28/17 06:24 Absolute Monos (auto) 0.7 10^3/ul (0-0.8) 11/28/17 06:24 Absolute Eos (auto) 0.1 10^3/ul (0-0.6) 11/28/17 06:24 Absolute Basos (auto) 0 10^3/ul (0-0.2) 11/28/17 06:24 Absolute Nucleated RBC 0 10^3/ul 11/28/17 06:24 Nucleated RBC % 0.1 11/28/17 06:24 INR (Anticoag Therapy) 0.97 (0.77-1.02) 11/25/17 05:09 APTT 30.2 seconds (26.0-36.3) 11/24/17 14:26 Sodium 130 mmol/L (139-145) L 11/28/17 06:24 Potassium 4.2 mmol/L (3.5-5.0) 11/28/17 06:24 Chloride 97 mmol/L (101-111) L 11/28/17 06:24 Carbon Dioxide 31 mmol/L (22-32) 11/28/17 06:24 Anion Gap 2 mmol/L (2-11) 11/28/17 06:24 BUN 15 mg/dL (6-24) 11/28/17 06:24 Creatinine 0.51 mg/dL (0.51-0.95) 11/28/17 06:24 Est GFR ( Amer) 153.3 (>60) 11/28/17 06:24 Est GFR (Non-Af Amer) 119.2 (>60) 11/28/17 06:24 BUN/Creatinine Ratio 29.4 (8-20) H 11/28/17 06:24 Glucose 92 mg/dL (70-100) 11/28/17 06:24 Serum Osmolality 274 mOsm/kg (275-295) L 11/25/17 05:09 Calcium 7.9 mg/dL (8.6-10.3) L 11/28/17 06:24 Total Bilirubin 0.70 mg/dL (0.2-1.0) 11/28/17 06:24 Direct Bilirubin 0.40 mg/dL (0.03-0.18) H 11/28/17 06:24 Indirect Bilirubin 0.3 mg/dL (0.3-1.0) 11/28/17 06:24 AST 58 U/L (13-39) H 11/28/17 06:24 ALT 15 U/L (7-52) 11/28/17 06:24 Alkaline Phosphatase 54 U/L (34-104) 11/28/17 06:24 Ammonia 24 mcmol/L (16-53) 11/28/17 06:24 Troponin I 0.00 ng/mL (<0.04) 11/24/17 14:26 Total Protein 5.0 g/dL (6.4-8.9) L 11/28/17 06:24 Albumin 2.6 g/dL (3.2-5.2) L 11/28/17 06:24 Globulin 2.4 g/dL (2-4) 11/28/17 06:24 Albumin/Globulin Ratio 1.1 (1-3) 11/28/17 06:24 TSH 2.09 mcIU/mL (0.34-5.60) 11/25/17 05:09 Cortisol 24.91 mcg/dL 11/25/17 05:09 Urine Color Yellow 11/24/17 17:09 Urine Appearance Cloudy 11/24/17 17:09 Urine pH 7.0 (5-9) 11/24/17 17:09 Ur Specific [place] 1.010 (1.010-1.030) 11/24/17 17:09 Urine Protein Negative (Negative) 11/24/17 17:09 Urine Ketones Negative (Negative) 11/24/17 17:09 Urine Blood Negative (Negative) 11/24/17 17:09 Urine Nitrate Negative (Negative) 11/24/17 17:09 Urine Bilirubin Negative (Negative) 11/24/17 17:09 Urine Urobilinogen Negative (Negative) 11/24/17 17:09 Ur Leukocyte Esterase 3+ (Negative) A 11/24/17 17:09 Urine WBC (Auto) 3+(>20/hpf) (Absent) A 11/24/17 17:09 Urine RBC (Auto) 3+(>10/hpf) (Absent) A 11/24/17 17:09 Ur Squamous Epith Cells Present (Absent) A 11/24/17 17:09 Ur Transition Epith Cell Present (Absent) A 11/24/17 17:09 Urine Bacteria Absent (Absent) 11/24/17 17:09 Urine Osmolality 613 mOsm/kg (150-1150) 11/25/17 10:06 Ur Random Creatinine 131.83 mg/dL 11/25/17 10:06 Ur Random Sodium < 18 mmol/L 11/25/17 10:06 Renal Sodium Excretion 0.04 % 11/25/17 10:06 Urine Glucose Negative (Negative) 11/24/17 17:09 Urine Ascorbic Acid * (Negative) A 11/24/17 17:09 Blood Type B Positive 11/28/17 06:24 Antibody Screen Negative 11/28/17 06:24 Crossmatch See Detail 11/28/17 06:24 Vital Signs Temp 97.8 F 11/28/17 14:00 Pulse 120 11/28/17 14:00 Resp 18 11/28/17 14:00 BP 97/79 11/28/17 14:00 Pulse Ox 92 11/28/17 14:00 Intake & Output 11/27/17 11/28/17 11/28/17 18:59 06:59 18:59 Intake Total 1613 510 338 Output Total 425 450 300 Balance 1188 60 38 Intake: IV Fluids 983 58 NS (0.9%) 983 58 IVPB 210 ABX - ZOSYN 210 Oral 630 300 0 Packed Cells 280 Output: Castellanos 425 450 300 General: NAD, laying in bed. RLE: Dressing changed, incision CDI without surrounding erythema. DF/PF intact. Sensation intact distally. 2+ DP pulse. BL LE: Calves supple and nontender. Capillary refill less than two seconds distally. RUE: Sling in place, ecchymosis of RUE. Upper arm tender, supple. Forearm nontender, warm and supple. Sensation intact throughout right hand, radial pulse 2+, able to flex and extend wrist. able to flex, extend, abduct and adduct all digits. Sensation intact throughout all digits. Assessment: []POD 3 sp right hip hemiarthroplasty Right humerous fracture awaiting fixation Plan: [] Daily dry sterile dressing changes of RLE Lovenox as DVT prophylaxis WBAT RLE as safely able due to same side humerus fracture resulting in NWB RUE []Surgery cancelled for today due to medical comorbidities. To be rescheduled when medically optimized Appreciate hospitalist team co-management.
[2017-11-28] MEDS: Magnesium Hydroxide LIQ* 30 ML UDC PO SCH ×2 (09:39→21:18)
[2017-11-28] MEDS: Valsartan TAB* 80 MG PO SCH (09:41)
[2017-11-28] MEDS: Metoprolol Succinate XL TAB* 50 MG PO SCH (09:42)
[2017-11-28] MEDS: Multivitamins/Minerals TAB PO SCH (09:43)
[2017-11-28] MEDS: Folic Acid TAB* 1 MG PO SCH (09:44)
[2017-11-28] MEDS: Thiamine TAB* 100 MG TAB PO SCH (09:44)
[2017-11-28] MEDS: Sertraline* 50 MG TAB PO SCH (09:45)
[2017-11-28] MEDS: Atorvastatin* 10 MG TAB PO SCH (09:45)
[2017-11-28] MEDS: Metoprolol Tartrate TAB* 25 MG PO SCH (09:46)
[2017-11-28] MEDS: Enoxaparin(*) 30 MG/0.3 ML SYR SUBCUT SCH (16:44)
--- NOTE | 2017-11-28 17:43 | PN ---
Hospitalist Progress Note Date of Service: 11/28/17 EKG reviewed by me. Junctional tachycardia with TWIs v2-v3 that are new. This may be related to underlying sepsis, etoh/benzo withdrawal, anemia, and agitation, and we will continue to treat those, however if this does not improve after treatment, she may warrant cardiology evaluation for consideration of adenosine to better understand underlying rhythm, as she has no history of atrial flutter but would warrant anticoagulation if it is present.
[2017-11-28] MEDS ORDERED: Diazepam TAB(*) 10 MG PO SCH (18:00)
--- NOTE | 2017-11-28 19:59 | PN ---
Hospitalist Progress Note Date of Service: 11/28/17 I spoke with Ms. Cabello's daughter Jannet and updated her on her mom and the events of today. She relates to me that her mom is a much heavier drinker that she has admitted, and she has had severe alcohol withdrawal in past admissions. She asks to be called with updates at [phone].
[2017-11-28] MEDS: Cyclobenzaprine TAB* 10 MG PO PRN (21:05)
[2017-11-28] MEDS: Aspirin 81 mg CHEW TAB* 81 MG TAB.CHEW PO SCH (21:06)
[2017-11-28] MEDS: Metoprolol Tartrate TAB* 50 mg PO SCH (21:06)
[2017-11-28] MEDS: Metoprolol Tartrate IV* 1 MG/ML 5 ML VIAL IV PRN (21:43)
[2017-11-28 22:11] LABS: Hematocrit 27 % (35-47); Hemoglobin 9.6 g/dl (12.0-16.0)
[2017-11-28] MEDS ORDERED: LORazepam INJ* 2 MG/ML 1 ML VIAL IV PUSH SCH (23:00)
[2017-11-29] MEDS: Piperacillin/Tazobac ADVAN(*) 3.375 GM in NS 0.9% 100 ML* 100 ML IVPB SCH ×2 (00:14→07:44)
[2017-11-29] MEDS: Levothyroxine TAB* 50 MCG TAB PO SCH ×2 (05:40→09:55)
[2017-11-29 06:38] LABS: Hematocrit 28 % (35-47); Mean Platelet Volume 6.8 um3 (7.4-10.4); Platelet Count 147 10^3/ul (150-450)
[2017-11-29] MEDS: Metoprolol Tartrate TAB* 50 mg PO SCH ×2 (07:53→20:30)
[2017-11-29] MEDS: PTO:Budesonide/Formote 160/4.5(NF) MDI INH SCH ×2 (08:50→21:59)
[2017-11-29] MEDS: Sertraline* 50 MG TAB PO SCH (09:55)
[2017-11-29] MEDS: Multivitamins/Minerals TAB PO SCH ×2 (09:55→10:13)
[2017-11-29] MEDS: Valsartan TAB* 80 MG PO SCH (09:55)
[2017-11-29] MEDS: Thiamine TAB* 100 MG TAB PO SCH (09:55)
[2017-11-29] MEDS: Magnesium Hydroxide LIQ* 30 ML UDC PO SCH ×2 (09:55→20:39)
[2017-11-29] MEDS: Atorvastatin* 10 MG TAB PO SCH (09:55)
[2017-11-29] MEDS: Folic Acid TAB* 1 MG PO SCH (09:55)
[2017-11-29] MEDS: ALPRAZolam TAB* 0.5 MG PO SCH (09:55)
--- NOTE | 2017-11-29 13:26 | PN ---
Progress Note - Progress Note Date of Service: 11/29/17 SOAP: Subjective: []Patient seen at bedside. She remains confused today. Her is present. She denies chest pain, shortness of breath, dizziness, nausea. Her right upper extremity is still quite painful. Objective: [] Vital Signs Temp 97.9 F 11/29/17 11:30 Pulse 116 11/29/17 11:30 Resp 20 11/29/17 13:59 BP 116/66 11/29/17 11:30 Pulse Ox 99 11/29/17 11:30 Intake & Output 11/28/17 11/29/17 11/29/17 18:59 06:59 18:59 Intake Total 963 0 600 Output Total 300 450 175 Balance 663 -450 425 Intake: IV Fluids 58 NS (0.9%) 58 IVPB 625 ABX - ZOSYN 105 NS (0.9%) 520 Oral 0 0 600 Packed Cells 280 Output: Urine 200 175 Castellanos 300 250 Other: # Bowel Movements 1 Estimated Stool Amount Small Laboratory Last Values WBC 5.2 10^3/ul (3.5-10.8) 11/28/17 06:24 RBC 2.28 10^6/ul (4.0-5.4) L 11/28/17 06:24 Hgb 10.0 g/dl (12.0-16.0) L 11/29/17 06:27 Hct 28 % (35-47) L 11/29/17 06:27 MCV 97 fL (80-97) 11/28/17 06:24 MCH 34 pg (27-31) H 11/28/17 06:24 MCHC 36 g/dl (31-36) 11/28/17 06:24 RDW 19 % (10.5-15) H 11/28/17 06:24 Plt Count 147 10^3/ul (150-450) L 11/29/17 06:27 MPV 6.8 um3 (7.4-10.4) L 11/29/17 06:27 Neut % (Auto) 80.3 % (38-83) 11/28/17 06:24 Lymph % (Auto) 5.5 % (25-47) L 11/28/17 06:24 [place] % (Auto) 12.8 % (0-7) H 11/28/17 06:24 Eos % (Auto) 1.2 % (0-6) 11/28/17 06:24 Baso % (Auto) 0.2 % (0-2) 11/28/17 06:24 Absolute Neuts (auto) 4.2 10^3/ul (1.5-7.7) 11/28/17 06:24 Absolute Lymphs (auto) 0.3 10^3/ul (1.0-4.8) L 11/28/17 06:24 Absolute Monos (auto) 0.7 10^3/ul (0-0.8) 11/28/17 06:24 Absolute Eos (auto) 0.1 10^3/ul (0-0.6) 11/28/17 06:24 Absolute Basos (auto) 0 10^3/ul (0-0.2) 11/28/17 06:24 Absolute Nucleated RBC 0 10^3/ul 11/28/17 06:24 Nucleated RBC % 0.1 11/28/17 06:24 INR (Anticoag Therapy) 0.97 (0.77-1.02) 11/25/17 05:09 APTT 30.2 seconds (26.0-36.3) 11/24/17 14:26 Sodium 130 mmol/L (139-145) L 11/28/17 06:24 Potassium 4.2 mmol/L (3.5-5.0) 11/28/17 06:24 Chloride 97 mmol/L (101-111) L 11/28/17 06:24 Carbon Dioxide 31 mmol/L (22-32) 11/28/17 06:24 Anion Gap 2 mmol/L (2-11) 11/28/17 06:24 BUN 15 mg/dL (6-24) 11/28/17 06:24 Creatinine 0.51 mg/dL (0.51-0.95) 11/28/17 06:24 Est GFR ( Amer) 153.3 (>60) 11/28/17 06:24 Est GFR (Non-Af Amer) 119.2 (>60) 11/28/17 06:24 BUN/Creatinine Ratio 29.4 (8-20) H 11/28/17 06:24 Glucose 92 mg/dL (70-100) 11/28/17 06:24 Serum Osmolality 274 mOsm/kg (275-295) L 11/25/17 05:09 Calcium 7.9 mg/dL (8.6-10.3) L 11/28/17 06:24 Total Bilirubin 0.70 mg/dL (0.2-1.0) 11/28/17 06:24 Direct Bilirubin 0.40 mg/dL (0.03-0.18) H 11/28/17 06:24 Indirect Bilirubin 0.3 mg/dL (0.3-1.0) 11/28/17 06:24 AST 58 U/L (13-39) H 11/28/17 06:24 ALT 15 U/L (7-52) 11/28/17 06:24 Alkaline Phosphatase 54 U/L (34-104) 11/28/17 06:24 Ammonia 24 mcmol/L (16-53) 11/28/17 06:24 Troponin I 0.00 ng/mL (<0.04) 11/24/17 14:26 Total Protein 5.0 g/dL (6.4-8.9) L 11/28/17 06:24 Albumin 2.6 g/dL (3.2-5.2) L 11/28/17 06:24 Globulin 2.4 g/dL (2-4) 11/28/17 06:24 Albumin/Globulin Ratio 1.1 (1-3) 11/28/17 06:24 TSH 2.09 mcIU/mL (0.34-5.60) 11/25/17 05:09 Cortisol 24.91 mcg/dL 11/25/17 05:09 Urine Color Yellow 11/24/17 17:09 Urine Appearance Cloudy 11/24/17 17:09 Urine pH 7.0 (5-9) 11/24/17 17:09 Ur Specific [place] 1.010 (1.010-1.030) 11/24/17 17:09 Urine Protein Negative (Negative) 11/24/17 17:09 Urine Ketones Negative (Negative) 11/24/17 17:09 Urine Blood Negative (Negative) 11/24/17 17:09 Urine Nitrate Negative (Negative) 11/24/17 17:09 Urine Bilirubin Negative (Negative) 11/24/17 17:09 Urine Urobilinogen Negative (Negative) 11/24/17 17:09 Ur Leukocyte Esterase 3+ (Negative) A 11/24/17 17:09 Urine WBC (Auto) 3+(>20/hpf) (Absent) A 11/24/17 17:09 Urine RBC (Auto) 3+(>10/hpf) (Absent) A 11/24/17 17:09 Ur Squamous Epith Cells Present (Absent) A 11/24/17 17:09 Ur Transition Epith Cell Present (Absent) A 11/24/17 17:09 Urine Bacteria Absent (Absent) 11/24/17 17:09 Urine Osmolality 613 mOsm/kg (150-1150) 11/25/17 10:06 Ur Random Creatinine 131.83 mg/dL 11/25/17 10:06 Ur Random Sodium < 18 mmol/L 11/25/17 10:06 Renal Sodium Excretion 0.04 % 11/25/17 10:06 Urine Glucose Negative (Negative) 11/24/17 17:09 Urine Ascorbic Acid * (Negative) A 11/24/17 17:09 Blood Type B Positive 11/28/17 06:24 Antibody Screen Negative 11/28/17 06:24 Crossmatch See Detail 11/28/17 06:24 General: NAD, laying in bed. RLE: Dressing changed, incision CDI without surrounding erythema. DF/PF intact. Sensation intact distally. 2+ DP pulse. BL LE: Calves supple and nontender. Capillary refill less than two seconds distally. RUE: Sling in place, ecchymosis of RUE. Upper arm tender, supple. Forearm nontender, warm and supple. Sensation intact throughout right hand, radial pulse 2+, able to flex and extend wrist. able to flex, extend, abduct and adduct all digits. Sensation intact throughout all digits. Redressed skin tears which continue to bleed, no purulence. Assessment: []SP right hip hemiarthroplasty Right humerous fracture awaiting fixation Plan: [] Daily dry sterile dressing changes of RLE Lovenox as DVT prophylaxis WBAT RLE as safely able due to same side humerus fracture resulting in NWB RUE Surgery to be rescheduled when medically optimized Appreciate hospitalist team co-management. Now on meropenam for UTI
[2017-11-29] MEDS: oxyCODONE/Acetamin 5/325 MG* TAB PO PRN ×2 (13:59→20:30)
[2017-11-29] MEDS: Meropenem 1 GM PREMIX(*) 1 GM/50 ML BAG IV SCH ×2 (13:59→21:35)
[2017-11-29] MEDS ORDERED: NS 0.9% 500 ML* 500 ML IV ONE (15:49)
[2017-11-29] MEDS: Metoprolol Tartrate IV* 1 MG/ML 5 ML VIAL IV PRN (16:11)
[2017-11-29] MEDS: Diazepam INJ (NF) 5 MG/ML 10 ML VIAL (50 MG TOTAL) IV SCH ×2 (16:33→21:05)
[2017-11-29] MEDS: PTO:Albuterol/Ipratropium RESP(NF) MDI (Combivent Respimat) INH PRN (17:19)
[2017-11-29] MEDS: Enoxaparin(*) 30 MG/0.3 ML SYR SUBCUT SCH (18:08)
--- NOTE | 2017-11-29 19:35 | PN ---
Subjective Date of Service: 11/29/17 Interval History: Ms. Cabello is confused today. At times she does warn staff not to move her right arm as it hurts but she has no other clear complaint. Her notes that she was also confused through the day yesterday. She was initially more oriented this morning but has worsened as the day progressed. Objective Active Medications: Acetaminophen (Tylenol Tab*) 650 mg PO Q4H PRN Albuterol (Ventolin 2.5 Mg/3 Ml Neb.Beulah*) 2.5 mg INH Q4H PRN Albuterol/Ipratropium (Combivent Respimat(Nf)) 2 puff INH Q6HR PRN; Protocol Alprazolam (Xanax Tab*) 0.5 mg PO DAILY QI Aspirin (Aspirin 81 Mg Chew Tab*) 81 mg PO 1999 QI Atorvastatin Calcium (Lipitor*) 10 mg PO DAILY QI Budesonide/Formoterol Fumarate (Symbicort 160/4.5 (Nf)) 2 puff INH BID QI Cyclobenzaprine HCl (Flexeril Tab*) 10 mg PO BID PRN Diazepam (Valium Inj (Nf)) 0 - 15 mg IV .PER [facility] PROTOCOL QI Diphenhydramine HCl (Benadryl Iv*) 25 mg IV Q6H PRN Enoxaparin Sodium (Lovenox(*)) 30 mg SUBCUT Q24H QI Folic Acid (Folvite Tab*) 1 mg PO DAILY QI Lactated Ringer's (Lactated Ringers 1000 Ml Bag*) 1,000 mls @ 100 mls/hr IV PER RATE QI Meropenem (Merrem 1 Gm Premix(*)) 1 gm in 50 mls @ 100 mls/hr IV Q8H QI Levalbuterol HCl (Xopenex 0.63mg/3ml Neb*) 0.63 mg INH ONCE PRN Levothyroxine Sodium (Synthroid Tab*) 50 mcg PO 0600 QI Magnesium Hydroxide (Milk Of Magnesia Liq*) 30 ml PO BID QI Magnesium Hydroxide (Milk Of Magnesia Liq*) 30 ml PO Q6H PRN Metoprolol Tartrate (Lopressor Tab*) 50 mg PO 0800,1999 QI Metoprolol Tartrate (Lopressor Iv*) 5 mg IV Q6H PRN Morphine Sulfate (Morphine Vial*) 2 mg IV Q2H PRN Multivitamins/Minerals (Theragran/Minerals Tab*) 1 tab PO DAILY [facility] Ondansetron HCl (Zofran Inj*) 4 mg IV Q6H PRN Oxycodone/Acetaminophen (Percocet 5/325 Tab*) 2 tab PO Q4H PRN Oxycodone/Acetaminophen (Percocet 5/325 Tab*) 1 tab PO Q4H PRN Sertraline HCl (Zoloft*) 50 mg PO DAILY [facility] Thiamine HCl (Vitamin B-1 Tab*) 100 mg PO DAILY [facility] Valsartan (Diovan Tab*) 80 mg PO DAILY [facility] Vital Signs: Temp Pulse Resp BP Pulse Ox 98.3 F 121 22 147/92 94 11/29/17 19:26 11/29/17 19:26 11/29/17 19:26 11/29/17 19:26 11/29/17 19:26 Oxygen Devices in Use Now: Nasal Cannula Appearance: Thin confused female in NAD Eyes: No Scleral Icterus Ears/Nose/Mouth/Throat: Mucous Membranes Moist Neck: NL Appearance and Movements; NL JVP, Trachea Midline Respiratory: Symmetrical Chest Expansion and Respiratory Effort, Clear to Auscultation Cardiovascular: NL Sounds; No Murmurs; No JVD, - Extremities: - - Edema noted to right UE, distal to SHARIFA bandage placed to stop bleeding from sutured skin tear Skin: - - skin tear to posterior right elbow, bleeding noted through dressing during the day, but no overt bleeding noted on examination, well-approximated Neurological: - - Alert, oriented to self only, irritated and confused Nutrition: Taking PO's Result Diagrams: 11/29/17 06:27 11/28/17 06:24 Additional Lab and Data: . Microbiology and Other Data: . Diagnostic Imaging: . Assess/Plan/Problems-Billing Assessment: Ms. Cabello is a 72 year old female with complex hx of COPD, mouth cancer, hypothyroidism, hypertension that sustained mechanical fall with subsequent right humerus fracture and right hip fracture. She is POD #4 from right hip ORIF and needs right humerus fracture repaired. However, post operative course complicated by confusion related to ETOH withdrawal and resistant UTI. - Patient Problems (1) Delirium Comment: - Likely multifactorial and related to hospitalization, uti/sepsis, anesthesia, narcotics, and now with concern for benzo/etoh withdrawal - Continue xanax standing (this is how she was taking it at home) - Continue wa protocol (2) Tachycardia Comment: - Persistent intermittent tachycardia, associated with agitation today and likely related to ETOH withdrawal (drinks a bottle of wine each night) - Continue WAM protocol. - Does not appear to be septic, though urine was ultimately very resistant to antibiotics and she is only now on appropriate therapy (meropenem), monitor. (3) UTI (urinary tract infection) Comment: - Switched from zosyn to meropenem based on sensititivities today. (4) Right humeral fracture Comment: - Continue to recommend postponing OR plans due to elevated risk in her current state and elevated risk related to etoh withdrawal, delirium, and UTI. - Ortho following. (5) Closed left hip fracture Comment: POD #3 ORIF (6) Postoperative anemia Current Visit: Yes Status: Acute Code(s): D64.9 - ANEMIA, UNSPECIFIED SNOMED Code(s): 833661249 Comment: - Hgb 10 after 1 unit PRBC. - Monitor. (7) CAD (coronary artery disease) Comment: - Continue statin - Restart ASA when clear by surgery (8) COPD (chronic obstructive pulmonary disease) Comment: - No signs of exacerbation - Continue Symbicort - Continue supplemental O2 @ 2L NC (9) HTN (hypertension) Comment: - BP well controlled. - Continue metoprolol and valsartan. (10) Hyponatremia Comment: - Chronic and at baseline - This does not need to be addressed acutely, but can be contributing to her recurrent falls, now with 2 hip fractures and a humerus fracture in the past 6 months. Could consider adding a vaptan outpatient. (11) Hypothyroidism Comment: - Continue Levothyroxine. (12) Full code status Comment: Status and Disposition: Inpatient, will likely need rehab
[2017-11-29] MEDS: Cyclobenzaprine TAB* 10 MG PO PRN (20:30)
[2017-11-29] MEDS: Aspirin 81 mg CHEW TAB* 81 MG TAB.CHEW PO SCH (20:30)
[2017-11-30] MEDS: Diazepam INJ (NF) 5 MG/ML 10 ML VIAL (50 MG TOTAL) IV SCH ×2 (00:05→17:17)
[2017-11-30] MEDS: Meropenem 1 GM PREMIX(*) 1 GM/50 ML BAG IV SCH ×3 (05:13→20:42)
[2017-11-30] MEDS: Levothyroxine TAB* 50 MCG TAB PO SCH (05:16)
[2017-11-30] MEDS: oxyCODONE/Acetamin 5/325 MG* TAB PO PRN ×3 (06:15→20:50)
[2017-11-30 07:14] LABS: Hematocrit 29 % (35-47); Hemoglobin 10.2 g/dl (12.0-16.0); Mean Corpuscular HGB Conc 35 g/dl (31-36); Mean Corpuscular Hemoglobin 34 pg (27-31); Mean Corpuscular Volume 96 fL (80-97); Mean Platelet Volume 6.8 um3 (7.4-10.4); Platelet Count 165 10^3/ul (150-450); Red Blood Count 3.04 10^6/ul (4.0-5.4); Red Cell Distribution Width 20 % (10.5-15)
[2017-11-30 07:19] LABS: EGFR Non-African American 149.2 (>60)
[2017-11-30 07:37] LABS: ABS Basophils 0 10^3/ul (0-0.2); ABS Eosinophils 0.1 10^3/ul (0-0.6); ABS Lymphocytes 0.3 10^3/ul (1.0-4.8); ABS Monocytes 0.9 10^3/ul (0-0.8); ABS Neutrophils 5.6 10^3/ul (1.5-7.7); ABS Nucleated RBC 0 10^3/ul; Eosinophil % 1.9 % (0-6); Lymphocyte % 4.4 % (25-47); Nucleated Red Blood Cells % 0
[2017-11-30] MEDS: PTO:Budesonide/Formote 160/4.5(NF) MDI INH SCH ×2 (08:13→21:29)
[2017-11-30] MEDS: Magnesium Hydroxide LIQ* 30 ML UDC PO SCH ×2 (08:24→20:49)
[2017-11-30] MEDS: Multivitamins/Minerals TAB PO SCH (08:24)
[2017-11-30] MEDS: Thiamine TAB* 100 MG TAB PO SCH (10:32)
[2017-11-30] MEDS: Folic Acid TAB* 1 MG PO SCH (10:32)
[2017-11-30] MEDS: Valsartan TAB* 80 MG PO SCH (10:32)
[2017-11-30] MEDS: Sertraline* 50 MG TAB PO SCH (10:33)
[2017-11-30] MEDS: Metoprolol Tartrate TAB* 50 mg PO SCH ×2 (10:33→20:50)
[2017-11-30] MEDS: ALPRAZolam TAB* 0.5 MG PO SCH (10:33)
[2017-11-30] MEDS: Atorvastatin* 10 MG TAB PO SCH (10:33)
[2017-11-30] MEDS: PTO:Albuterol/Ipratropium RESP(NF) MDI (Combivent Respimat) INH PRN (10:58)
[2017-11-30] MEDS: Metoprolol Tartrate IV* 1 MG/ML 5 ML VIAL IV PRN (11:29)
--- NOTE | 2017-11-30 13:24 | PN ---
Subjective Date of Service: 11/30/17 Interval History: Pain mostly R shoulder, relieved by IV morphine. Slept well last night. Ate breakfast well today. No new c/o. Objective Active Medications: Acetaminophen (Tylenol Tab*) 650 mg PO Q4H PRN PRN Reason: FEVER/PAIN Albuterol (Ventolin 2.5 Mg/3 Ml Neb.Beulah*) 2.5 mg INH Q4H PRN PRN Reason: SOB/WHEEZING Albuterol/Ipratropium (Combivent Respimat(Nf)) 2 puff INH Q6HR PRN; Protocol PRN Reason: SOB/WHEEZING Last Admin: 11/30/17 10:58 Dose: 2 puff Alprazolam (Xanax Tab*) 0.5 mg PO DAILY [facility] Last Admin: 11/30/17 10:33 Dose: 0.5 mg Aspirin (Aspirin 81 Mg Chew Tab*) 81 mg PO 2000 [facility] Last Admin: 11/29/17 20:30 Dose: 81 mg Atorvastatin Calcium (Lipitor*) 10 mg PO DAILY [facility] Last Admin: 11/30/17 10:33 Dose: 10 mg Budesonide/Formoterol Fumarate (Symbicort 160/4.5 (Nf)) 2 puff INH BID QI PRN Reason: Protocol Last Admin: 11/30/17 08:13 Dose: 2 puff Cyclobenzaprine HCl (Flexeril Tab*) 10 mg PO BID PRN PRN Reason: SPASMS Last Admin: 11/29/17 20:30 Dose: 10 mg Diazepam (Valium Inj (Nf)) 0 - 15 mg IV .PER [facility] PROTOCOL [facility] PRN Reason: Protocol Last Admin: 11/30/17 00:05 Dose: 7.5 mg Diphenhydramine HCl (Benadryl Iv*) 25 mg IV Q6H PRN PRN Reason: itching Last Admin: 11/29/17 20:30 Dose: 25 mg Enoxaparin Sodium (Lovenox(*)) 30 mg SUBCUT Q24H [facility] Last Admin: 11/29/17 18:08 Dose: 30 mg Folic Acid (Folvite Tab*) 1 mg PO DAILY [facility] Last Admin: 11/30/17 10:32 Dose: 1 mg Furosemide (Lasix Tab*) 20 mg PO DAILY [facility] Lactated Ringer's (Lactated Ringers 1000 Ml Bag*) 1,000 mls @ 100 mls/hr IV PER RATE [facility] Last Admin: 11/30/17 11:29 Dose: 100 mls/hr Meropenem (Merrem 1 Gm Premix(*)) 1 gm in 50 mls @ 100 mls/hr IV Q8H [facility] Last Admin: 11/30/17 05:13 Dose: 100 mls/hr Levothyroxine Sodium (Synthroid Tab*) 50 mcg PO 0600 [facility] Last Admin: 11/30/17 05:16 Dose: 50 mcg Magnesium Hydroxide (Milk Of Magnesia Liq*) 30 ml PO BID [facility] Last Admin: 11/30/17 08:24 Dose: Not Given Magnesium Hydroxide (Milk Of Magnesia Liq*) 30 ml PO Q6H PRN PRN Reason: constipation Metoprolol Tartrate (Lopressor Tab*) 50 mg PO 799,1999 [facility] Last Admin: 11/30/17 10:33 Dose: 50 mg Metoprolol Tartrate (Lopressor Iv*) 5 mg IV Q6H PRN PRN Reason: BLOOD PRESSURE Last Admin: 11/30/17 11:29 Dose: 5 mg Morphine Sulfate (Morphine Vial*) 2 mg IV Q2H PRN PRN Reason: PAIN - MILD Last Admin: 11/25/17 15:18 Dose: 2 mg Multivitamins/Minerals (Theragran/Minerals Tab*) 1 tab PO DAILY [facility] Last Admin: 11/30/17 08:24 Dose: Not Given Ondansetron HCl (Zofran Inj*) 4 mg IV Q6H PRN PRN Reason: NAUSEA Oxycodone/Acetaminophen (Percocet 5/325 Tab*) 2 tab PO Q4H PRN PRN Reason: PAIN Last Admin: 11/27/17 08:49 Dose: 2 tab Oxycodone/Acetaminophen (Percocet 5/325 Tab*) 1 tab PO Q4H PRN PRN Reason: PAIN Last Admin: 11/30/17 06:15 Dose: 1 tab Sertraline HCl (Zoloft*) 50 mg PO DAILY [facility] Last Admin: 11/30/17 10:33 Dose: 50 mg Thiamine HCl (Vitamin B-1 Tab*) 100 mg PO DAILY [facility] Last Admin: 11/30/17 10:32 Dose: 100 mg Valsartan (Diovan Tab*) 80 mg PO DAILY [facility] Last Admin: 11/30/17 10:32 Dose: 80 mg Vital Signs - 8 hr 11/30/17 11/30/17 11/30/17 06:15 07:50 07:51 Temperature 97.7 F Pulse Rate 78 Respiratory 18 24 Rate Blood Pressure 135/71 (mmHg) O2 Sat by Pulse 97 Oximetry 11/30/17 11/30/17 11/30/17 08:00 08:14 08:15 Temperature Pulse Rate 69 69 Respiratory 18 20 20 Rate Blood Pressure (mmHg) O2 Sat by Pulse 99 99 Oximetry 11/30/17 11/30/17 11/30/17 10:31 10:33 12:00 Temperature 97.6 F Pulse Rate 85 Respiratory 17 17 Rate Blood Pressure 138/78 108/58 (mmHg) O2 Sat by Pulse 92 Oximetry 11/30/17 11/30/17 12:01 12:30 Temperature 97.3 F Pulse Rate 113 Respiratory 20 18 Rate Blood Pressure 94/59 (mmHg) O2 Sat by Pulse Oximetry Oxygen Devices in Use Now: Nasal Cannula Appearance: Alert, in a chair. In good spirits. Looks comfortable at rest. Eyes: No Scleral Icterus Neck: NL Appearance and Movements; NL JVP, No Thyroid Enlargement, Masses Respiratory: Symmetrical Chest Expansion and Respiratory Effort, Clear to Auscultation, Clear to Percussion Cardiovascular: NL Sounds; No Murmurs; No JVD, RRR, No Edema, - Extremities: No Clubbing, Cyanosis, - - 1-2+ edema R hand. R arm in sling Skin: No Rash or Ulcers, No Nodules or Sclerosis, - Neurological: NL Sensation - Appropriate affect. She did not know the present month. No tremor. Result Diagrams: 11/30/17 06:13 11/30/17 06:13 Additional Lab and Data: . Microbiology and Other Data: . Diagnostic Imaging: . Assess/Plan/Problems-Billing Assessment: Ms. Cabello is a 72 year old female with complex hx of COPD, mouth cancer, hypothyroidism, hypertension that sustained mechanical fall with subsequent right humerus fracture and right hip fracture. She is POD #4 from right hip ORIF and needs right humerus fracture repaired. However, post operative course complicated by confusion related to ETOH withdrawal and resistant UTI. - Patient Problems (1) Delirium Current Visit: No Status: Acute Code(s): R41.0 - DISORIENTATION, UNSPECIFIED SNOMED Code(s): 4749023 Comment: - Likely multifactorial and related to hospitalization, uti/sepsis, anesthesia, narcotics, and now with concern for benzo/etoh withdrawal - Continue xanax standing (this is how she was taking it at home) - Continue wam protocol with diazepam. Accoridng to her daughter, she is much improved c/w 11/29. (2) UTI (urinary tract infection) Current Visit: Yes Status: Acute Comment: - Switched from zosyn to meropenem based on sensititivities today. I would continue this for 5 days and 24 hrs post-op. (3) CAD (coronary artery disease) Current Visit: No Status: Acute Code(s): I25.10 - ATHSCL HEART DISEASE OF [place] CORONARY ARTERY W/O ANG PCTRS SNOMED Code(s): 38476810 Comment: - Continue statin, ASA, (4) COPD (chronic obstructive pulmonary disease) Current Visit: No Status: Acute Code(s): J44.9 - CHRONIC OBSTRUCTIVE PULMONARY DISEASE, UNSPECIFIED SNOMED Code(s): 41047362 Comment: - No signs of exacerbation - Continue Symbicort, PRN albuterol. (5) Hyponatremia Current Visit: No Status: Acute Code(s): E87.1 - HYPO-OSMOLALITY AND HYPONATREMIA SNOMED Code(s): 98780471 Comment: Chronic. Better on 11/30. Pt advised to drink water in moderation. She c/o dry mouth. I suggested using lemon candies. Status and Disposition: Inpatient, will likely need rehab
--- NOTE | 2017-11-30 13:36 | PN ---
Progress Note - Progress Note Date of Service: 11/30/17 SOAP: Subjective: 72 y/o female s/p R hip hemiarthroplasty 11/[address] Castillo with right proximal humerus fracture awaiting ORIF. Patient was to have surgery yesterday, however delayed due to UTI, delerium. states wifes mood has improved, Vitals improved. Eager for surgery. Objective: General- Well appearing, confused, sitting in chair, NAD MSK= Right side: Dressing from R thigh removed, incision c/d/i, minimal ecchymosis, no erythema, drainage. mild edema, + DF/PF, SITLT, neg homans. R upper arm in SHARIFA, sling, rad, ulnar pulses 2+, + ROM of fingers, extensive ecchymosis above SHARIFA. Vital Signs Temp 97.3 F 11/30/17 12:01 Pulse 113 11/30/17 12:01 Resp 18 11/30/17 13:21 BP 94/59 11/30/17 12:01 Pulse Ox 92 11/30/17 12:00 Intake & Output 11/29/17 11/30/17 11/30/17 18:59 06:59 18:59 Intake Total 600 2213 Output Total 175 1150 Balance 425 1063 Intake: IV Fluids 1758 LR 1758 IVPB 105 Meropenem 105 Oral 600 350 Output: Urine 175 Castellanos 1150 Other: # Bowel Movements 0 Assessment: SP right hip hemiarthroplasty 11/25 Right humerous fracture awaiting fixation Plan: - Daily dry sterile dressing changes of RLE - Lovenox as DVT prophylaxis- hold tomorrow for probably ORIF repair of humerus by Dr. Carranza - WBAT RLE as safely able due to same side humerus fracture resulting in NWB RUE - Surgery- ORIF humerus fx by Dr. Carranza likely tomorrow - Appreciate hospitalist team co-management. - meropenam for UTI - NPO pMN for planned surgery Acetaminophen (Tylenol Tab*) 650 mg PO Q4H PRN PRN Reason: FEVER/PAIN Albuterol (Ventolin 2.5 Mg/3 Ml Neb.Beulah*) 2.5 mg INH Q4H PRN PRN Reason: SOB/WHEEZING Albuterol/Ipratropium (Combivent Respimat(Nf)) 2 puff INH Q6HR PRN; Protocol PRN Reason: SOB/WHEEZING Last Admin: 11/30/17 10:58 Dose: 2 puff Alprazolam (Xanax Tab*) 0.5 mg PO DAILY [facility] Last Admin: 11/30/17 10:33 Dose: 0.5 mg Aspirin (Aspirin 81 Mg Chew Tab*) 81 mg PO 1999 [facility] Last Admin: 11/29/17 20:30 Dose: 81 mg Atorvastatin Calcium (Lipitor*) 10 mg PO DAILY [facility] Last Admin: 11/30/17 10:33 Dose: 10 mg Budesonide/Formoterol Fumarate (Symbicort 160/4.5 (Nf)) 2 puff INH BID [facility] PRN Reason: Protocol Last Admin: 11/30/17 08:13 Dose: 2 puff Cyclobenzaprine HCl (Flexeril Tab*) 10 mg PO BID PRN PRN Reason: SPASMS Last Admin: 11/29/17 20:30 Dose: 10 mg Diazepam (Valium Inj (Nf)) 0 - 15 mg IV .PER [facility] PROTOCOL [facility] PRN Reason: Protocol Last Admin: 11/30/17 00:05 Dose: 7.5 mg Diphenhydramine HCl (Benadryl Po*) 25 mg PO BEDTIME PRN PRN Reason: INSOMNIA Folic Acid (Folvite Tab*) 1 mg PO DAILY [facility] Last Admin: 11/30/17 10:32 Dose: 1 mg Lactated Ringer's (Lactated Ringers 1000 Ml Bag*) 1,000 mls @ 100 mls/hr IV PER RATE [facility] Last Admin: 11/30/17 11:29 Dose: 100 mls/hr Meropenem (Merrem 1 Gm Premix(*)) 1 gm in 50 mls @ 100 mls/hr IV Q8H [facility] Last Admin: 11/30/17 13:19 Dose: 100 mls/hr Levothyroxine Sodium (Synthroid Tab*) 50 mcg PO 0600 [facility] Last Admin: 11/30/17 05:16 Dose: 50 mcg Magnesium Hydroxide (Milk Of Magnesia Liq*) 30 ml PO BID [facility] Last Admin: 11/30/17 08:24 Dose: Not Given Magnesium Hydroxide (Milk Of Magnesia Liq*) 30 ml PO Q6H PRN PRN Reason: constipation Metoprolol Tartrate (Lopressor Tab*) 50 mg PO 799,1999 [facility] Last Admin: 11/30/17 10:33 Dose: 50 mg Metoprolol Tartrate (Lopressor Iv*) 5 mg IV Q6H PRN PRN Reason: BLOOD PRESSURE Last Admin: 11/30/17 11:29 Dose: 5 mg Morphine Sulfate (Morphine Vial*) 2 mg IV Q2H PRN PRN Reason: PAIN - MILD Last Admin: 11/25/17 15:18 Dose: 2 mg Multivitamins/Minerals (Theragran/Minerals Tab*) 1 tab PO DAILY [facility] Last Admin: 11/30/17 08:24 Dose: Not Given Ondansetron HCl (Zofran Inj*) 4 mg IV Q6H PRN PRN Reason: NAUSEA Oxycodone/Acetaminophen (Percocet 5/325 Tab*) 2 tab PO Q4H PRN PRN Reason: PAIN Last Admin: 11/27/17 08:49 Dose: 2 tab Oxycodone/Acetaminophen (Percocet 5/325 Tab*) 1 tab PO Q4H PRN PRN Reason: PAIN Last Admin: 11/30/17 13:21 Dose: 1 tab Sertraline HCl (Zoloft*) 50 mg PO DAILY [facility] Last Admin: 11/30/17 10:33 Dose: 50 mg Thiamine HCl (Vitamin B-1 Tab*) 100 mg PO DAILY [facility] Last Admin: 11/30/17 10:32 Dose: 100 mg Valsartan (Diovan Tab*) 40 mg PO DAILY [facility]
[2017-11-30] MEDS ORDERED: Dexamethasone TAB* 4 MG PO ONE (15:33)
[2017-11-30] MEDS ORDERED: Diazepam INJ (NF) 5 MG/ML 10 ML VIAL (50 MG TOTAL) IV ONE (18:10)
[2017-11-30] MEDS ORDERED: Diazepam TAB(*) 5 MG PO PRN (18:13)
[2017-11-30] MEDS ORDERED: Diazepam INJ (NF) 5 MG/ML 10 ML VIAL (50 MG TOTAL) IV PRN (18:37)
[2017-11-30] MEDS: Aspirin 81 mg CHEW TAB* 81 MG TAB.CHEW PO SCH (20:51)
[2017-12-01] MEDS: Morphine VIAL* 4 MG/ML VIAL (1 ml vial) IV PRN ×2 (01:09→06:00)
[2017-12-01] MEDS ORDERED: Dexamethasone TAB* 4 MG PO ONE (06:00)
[2017-12-01] MEDS: Levothyroxine TAB* 50 MCG TAB PO SCH (06:00)
[2017-12-01] MEDS: Meropenem 1 GM PREMIX(*) 1 GM/50 ML BAG IV SCH ×3 (06:01→21:27)
[2017-12-01] MEDS ORDERED: Famotidine TAB* 20 MG PO ONE (06:30)
[2017-12-01] MEDS ORDERED: Bupivacaine 0.5%* 50 ML VIAL ONE (06:39)
[2017-12-01] MEDS ORDERED: Midazolam* 1 MG/ML 5 ML VIAL (5 MG) ONE (07:18)
[2017-12-01] MEDS ORDERED: KETAMINE HCL* 50 MG/ML 10 ML VIAL ONE (07:18)
[2017-12-01] MEDS ORDERED: fentaNYL* 50 MCG/ML 2 ML VIAL (100 MCG VIAL) ONE (07:18)
[2017-12-01] MEDS ORDERED: Furosemide TAB* 20 MG PO SCH (09:00)
[2017-12-01] MEDS ORDERED: Bupivacaine 0.25% SDV* 30 ML ONE (09:03)
[2017-12-01] MEDS ORDERED: Lidocaine 2% PF * 5 ML VIAL ONE (09:38)
[2017-12-01] MEDS ORDERED: Phenylephrine INJ* 10 MG/ML 1 ML VIAL (10 MG) ONE (09:38)
[2017-12-01] MEDS ORDERED: ROPIVACAINE 5 MG/ML 30 ML BTL (0.5%) ONE (09:39)
[2017-12-01] MEDS ORDERED: Norepinephrine VIAL* 1 MG/ML 4 ML VIAL ONE (09:39)
[2017-12-01] MEDS ORDERED: Propofol* 10 MG/ML 20 ML BTL IV PUSH ONE ×2 (09:39→10:46)
[2017-12-01] MEDS: PTO:Budesonide/Formote 160/4.5(NF) MDI INH SCH ×2 (09:47→21:17)
[2017-12-01] MEDS ORDERED: Naloxone* 0.4 MG/ML 1 ML VIAL IV PRN (10:31)
[2017-12-01] MEDS ORDERED: PROCHLORPERAZINE INJ 5 MG/ML 2 ML VIAL IV PRN (10:31)
[2017-12-01] MEDS ORDERED: Metoprolol Tartrate IV* 1 MG/ML 5 ML VIAL ONE (10:43)
[2017-12-01] MEDS ORDERED: EPHEDrine (Pressors)* 50 MG/ML VIAL ONE (10:43)
--- NOTE | 2017-12-01 10:56 | RAD ---
INDICATION: Traumatic fracture of the proximal right humerus operative reduction and internal fixation. COMPARISON: Comparison is made with a prior x-ray study of the right humerus from November 24, 2017. TECHNIQUE: 21 seconds of intermittent fluoroscopic guidance were provided and 3 spot films of the right shoulder were obtained in the operating room. FINDINGS: The films demonstrate operative reduction internal fixation of the previously noted fracture of the surgical neck of the humerus. There is a metallic surgical plate present along the lateral aspect of the proximal humerus transfixed with multiple screws spanning the fracture fragments. IMPRESSION: INTRAOPERATIVE CONTROL FILMS. CPT II Codes: G9500
[2017-12-01 11:14] LABS: Hematocrit 28 % (35-47); Hemoglobin 9.5 g/dl (12.0-16.0); Mean Corpuscular HGB Conc 34 g/dl (31-36); Mean Corpuscular Hemoglobin 33 pg (27-31); Mean Corpuscular Volume 97 fL (80-97); Platelet Count 225 10^3/ul (150-450); Red Cell Distribution Width 19 % (10.5-15); White Blood Count 5.8 10^3/ul (3.5-10.8)
[2017-12-01] MEDS: Folic Acid TAB* 1 MG PO SCH (12:30)
[2017-12-01] MEDS: Multivitamins/Minerals TAB PO SCH (12:30)
[2017-12-01] MEDS: Thiamine TAB* 100 MG TAB PO SCH (12:30)
[2017-12-01] MEDS: Valsartan TAB* 40 MG PO SCH (12:41)
[2017-12-01] MEDS: Sertraline* 50 MG TAB PO SCH (12:41)
[2017-12-01] MEDS: Atorvastatin* 10 MG TAB PO SCH (12:41)
[2017-12-01] MEDS: ALPRAZolam TAB* 0.5 MG PO SCH (12:41)
[2017-12-01] MEDS: Magnesium Hydroxide LIQ* 30 ML UDC PO SCH ×2 (12:42→19:52)
[2017-12-01] MEDS: oxyCODONE/Acetamin 5/325 MG* TAB PO PRN ×2 (12:42→20:06)
--- NOTE | 2017-12-01 13:17 | PN ---
Subjective Date of Service: 12/01/17 Interval History: Feels better overall today. Some pain from R shoulder surgery. Objective Active Medications: Acetaminophen (Tylenol Tab*) 650 mg PO Q4H PRN PRN Reason: FEVER/PAIN Albuterol (Ventolin 2.5 Mg/3 Ml Neb.Beulah*) 2.5 mg INH Q4H PRN PRN Reason: SOB/WHEEZING Albuterol/Ipratropium (Combivent Respimat(Nf)) 2 puff INH Q6HR PRN; Protocol PRN Reason: SOB/WHEEZING Last Admin: 11/30/17 10:58 Dose: 2 puff Alprazolam (Xanax Tab*) 0.5 mg PO DAILY [facility] Last Admin: 12/01/17 12:41 Dose: 0.5 mg Aspirin (Aspirin 81 Mg Chew Tab*) 81 mg PO 2000 [facility] Last Admin: 11/30/17 20:51 Dose: 81 mg Atorvastatin Calcium (Lipitor*) 10 mg PO DAILY [facility] Last Admin: 12/01/17 12:41 Dose: 10 mg Budesonide/Formoterol Fumarate (Symbicort 160/4.5 (Nf)) 2 puff INH BID QI PRN Reason: Protocol Last Admin: 12/01/17 09:47 Dose: Not Given Cyclobenzaprine HCl (Flexeril Tab*) 10 mg PO BID PRN PRN Reason: SPASMS Last Admin: 11/29/17 20:30 Dose: 10 mg Diazepam (Valium Tab(*)) 5 mg PO Q6H PRN PRN Reason: ANXIETY Diazepam (Valium Inj (Nf)) 2 mg IV Q6H PRN PRN Reason: ANXIETY Diphenhydramine HCl (Benadryl Po*) 25 mg PO BEDTIME PRN PRN Reason: INSOMNIA Folic Acid (Folvite Tab*) 1 mg PO DAILY [facility] Last Admin: 12/01/17 12:30 Dose: Not Given Lactated Ringer's (Lactated Ringers 1000 Ml Bag*) 1,000 mls @ 100 mls/hr IV PER RATE [facility] Last Admin: 12/01/17 12:41 Dose: 100 mls/hr Meropenem (Merrem 1 Gm Premix(*)) 1 gm in 50 mls @ 100 mls/hr IV Q8H [facility] Last Admin: 12/01/17 06:01 Dose: 100 mls/hr Levothyroxine Sodium (Synthroid Tab*) 50 mcg PO 0600 [facility] Last Admin: 12/01/17 06:00 Dose: 50 mcg Magnesium Hydroxide (Milk Of Magnesia Liq*) 30 ml PO BID [facility] Last Admin: 12/01/17 12:42 Dose: 30 ml Magnesium Hydroxide (Milk Of Magnesia Liq*) 30 ml PO Q6H PRN PRN Reason: constipation Metoprolol Tartrate (Lopressor Tab*) 50 mg PO [facility] Last Admin: 11/30/17 20:50 Dose: 50 mg Metoprolol Tartrate (Lopressor Iv*) 5 mg IV Q6H PRN PRN Reason: BLOOD PRESSURE Last Admin: 11/30/17 11:29 Dose: 5 mg Morphine Sulfate (Morphine Vial*) 2 mg IV Q2H PRN PRN Reason: PAIN - MILD Last Admin: 12/01/17 06:00 Dose: 2 mg Multivitamins/Minerals (Theragran/Minerals Tab*) 1 tab PO DAILY [facility] Last Admin: 12/01/17 12:30 Dose: Not Given Naloxone HCl (Narcan*) 0.08 mg IV Q2M PRN PRN Reason: severe induced resp depression Stop: 12/02/17 10:30 Ondansetron HCl (Zofran Inj*) 4 mg IV Q6H PRN PRN Reason: NAUSEA Oxycodone/Acetaminophen (Percocet 5/325 Tab*) 2 tab PO Q4H PRN PRN Reason: PAIN Last Admin: 12/01/17 12:42 Dose: 2 tab Oxycodone/Acetaminophen (Percocet 5/325 Tab*) 1 tab PO Q4H PRN PRN Reason: PAIN Last Admin: 11/30/17 20:50 Dose: 1 tab Prochlorperazine Edisylate (Compazine Inj*) 2.5 mg IV ONCE PRN PRN Reason: NAUSEA/VOMITING Sertraline HCl (Zoloft*) 50 mg PO DAILY [facility] Last Admin: 12/01/17 12:41 Dose: 50 mg Thiamine HCl (Vitamin B-1 Tab*) 100 mg PO DAILY [facility] Last Admin: 12/01/17 12:30 Dose: Not Given Valsartan (Diovan Tab*) 40 mg PO DAILY [facility] Last Admin: 12/01/17 12:41 Dose: 40 mg Vital Signs - 8 hr 12/01/17 12/01/17 12/01/17 05:54 06:00 07:31 Temperature 98.1 F Pulse Rate 81 Respiratory 20 18 18 Rate Blood Pressure 144/79 (mmHg) O2 Sat by Pulse 100 Oximetry 12/01/17 12/01/17 12/01/17 08:00 10:54 10:55 Temperature Pulse Rate 65 63 Respiratory 18 13 7 Rate Blood Pressure 108/58 97/54 (mmHg) O2 Sat by Pulse 100 100 Oximetry 12/01/17 12/01/17 12/01/17 10:56 10:58 11:00 Temperature 97.7 F Pulse Rate 65 Respiratory 7 6 Rate Blood Pressure 105/75 (mmHg) O2 Sat by Pulse 100 Oximetry 12/01/17 12/01/17 12/01/17 11:01 11:05 11:10 Temperature Pulse Rate 68 69 71 Respiratory 6 6 7 Rate Blood Pressure 133/73 150/78 (mmHg) O2 Sat by Pulse 100 100 100 Oximetry 12/01/17 12/01/17 12/01/17 11:15 11:16 11:30 Temperature Pulse Rate 73 71 83 Respiratory 7 7 18 Rate Blood Pressure 136/83 (mmHg) O2 Sat by Pulse 100 100 99 Oximetry 12/01/17 12/01/17 12/01/17 11:31 11:45 11:46 Temperature Pulse Rate 78 72 75 Respiratory 14 2 14 Rate Blood Pressure 163/115 135/94 (mmHg) O2 Sat by Pulse 99 100 100 Oximetry 12/01/17 12/01/17 12:41 12:42 Temperature Pulse Rate Respiratory 16 16 Rate Blood Pressure (mmHg) O2 Sat by Pulse Oximetry Oxygen Devices in Use Now: Nasal Cannula Appearance: Alert, head partly up in bed. In good spirits. Looks comfortable at rest. Eyes: No Scleral Icterus Neck: NL Appearance and Movements; NL JVP, No Thyroid Enlargement, Masses Respiratory: Symmetrical Chest Expansion and Respiratory Effort, Clear to Auscultation, Clear to Percussion Cardiovascular: NL Sounds; No Murmurs; No JVD, RRR, No Edema, - Extremities: No Edema, No Clubbing, Cyanosis, - - R arm in immobilizer Skin: No Rash or Ulcers, No Nodules or Sclerosis, - Neurological: Alert and Oriented x 3, NL Sensation Result Diagrams: 12/01/17 11:05 11/30/17 06:13 Additional Lab and Data: . Microbiology and Other Data: . Diagnostic Imaging: . Assess/Plan/Problems-Billing Assessment: Ms. Cabello is a 72 year old female with complex hx of COPD, mouth cancer, hypothyroidism, hypertension that sustained mechanical fall with subsequent right humerus fracture and right hip fracture. She is POD #4 from right hip ORIF and needs right humerus fracture repaired. However, post operative course complicated by confusion related to ETOH withdrawal and resistant UTI. - Patient Problems (1) Delirium Current Visit: No Status: Acute Code(s): R41.0 - DISORIENTATION, UNSPECIFIED SNOMED Code(s): 6981142 Comment: - Likely related to hospitalization, uti/sepsis, anesthesia, narcotics, benzo/ etoh withdrawal - Continue xanax scheduled as at home. PRN diazepam IV or PO. Accoridng to her daughter, she is again much improved c/w 11/30. (2) UTI (urinary tract infection) Current Visit: Yes Status: Acute Comment: - Switched from zosyn to meropenem based on sensititivities today. I would continue this for 5 days and 24 hrs post-op. Remove Castellanos 0600 12/02. (3) CAD (coronary artery disease) Current Visit: No Status: Acute Code(s): I25.10 - ATHSCL HEART DISEASE OF [place] CORONARY ARTERY W/O ANG PCTRS SNOMED Code(s): 00100097 Comment: - Continue statin, ASA. HR and BP up in AM 12/01 due to holding meds for surgery. Catch up on AM meds. (4) COPD (chronic obstructive pulmonary disease) Current Visit: No Status: Acute Code(s): J44.9 - CHRONIC OBSTRUCTIVE PULMONARY DISEASE, UNSPECIFIED SNOMED Code(s): 18192328 Comment: - No signs of exacerbation - Continue Symbicort, PRN albuterol. (5) Hyponatremia Current Visit: No Status: Acute Code(s): E87.1 - HYPO-OSMOLALITY AND HYPONATREMIA SNOMED Code(s): 02034019 Comment: Chronic. Better on 11/30. Pt advised to drink water in moderation. She c/o dry mouth. I suggested using lemon candies. Status and Disposition: Inpatient, will likely need rehab
[2017-12-01] MEDS: Metoprolol Tartrate TAB* 50 mg PO SCH ×2 (13:31→19:58)
[2017-12-01] MEDS: PTO:Albuterol/Ipratropium RESP(NF) MDI (Combivent Respimat) INH PRN ×2 (19:00→21:15)
[2017-12-01] MEDS: Aspirin 81 mg CHEW TAB* 81 MG TAB.CHEW PO SCH (19:58)
[2017-12-01] MEDS: diPHENhydraMINE PO* 25 MG PO PRN (20:40)
[2017-12-02] MEDS: Meropenem 1 GM PREMIX(*) 1 GM/50 ML BAG IV SCH ×3 (04:26→21:51)
[2017-12-02] MEDS: Levothyroxine TAB* 50 MCG TAB PO SCH (04:59)
[2017-12-02] MEDS: oxyCODONE/Acetamin 5/325 MG* TAB PO PRN ×4 (05:01→20:05)
[2017-12-02] MEDS: Metoprolol Tartrate TAB* 50 mg PO SCH ×2 (08:05→20:21)
[2017-12-02] MEDS: Magnesium Hydroxide LIQ* 30 ML UDC PO SCH ×2 (08:07→21:55)
--- NOTE | 2017-12-02 08:46 | PN ---
Progress Note - Progress Note Date of Service: 12/02/17 SOAP: Subjective: 72 y/o female s/p R hip hemiarthroplasty 11/[address] Castillo with right proximal humerus fracture s/p ORIF with Dr. Carranza on 12/01/17. She is seen lying in bed today. She reports severe pain, 10/10 in right shoulder. No pain in right hip. She is concerned about bruising and swelling right arm. She denies numbness but endorses decreased sensation in right hand. Oriented to person, place, year and month. On recheck pain much improved. Objective: Vital Signs Temp 98.2 F 12/02/17 06:51 Pulse 72 12/02/17 09:00 Resp 19 12/02/17 09:15 BP 144/89 12/02/17 06:51 Pulse Ox 98 12/02/17 09:00 Intake & Output 12/01/17 12/02/17 12/02/17 18:59 06:59 18:59 Intake Total 2103 117 240 Output Total 330 475 Balance 1773 -358 240 Intake: IV Fluids 1833 2 LR 1153 Meropenem 2 NS (0.9%) 80 lr 600 IVPB 150 115 LR 60 Meropenem 150 55 Oral 120 0 240 Output: Urine 215 Castellanos 100 475 Estimated Blood Loss 15 Other: Estimated Stool Amount Large Laboratory Results - last 24 hr 12/01/17 11:05 WBC 5.8 RBC 2.90 L Hgb 9.5 L Hct 28 L MCV 97 MCH 33 H MCHC 34 RDW 19 H Plt Count 225 MPV 7.0 L General: WN, WD, face drawn, RLE: Incision C/D/I. DF/PF intact. Sensation intact distally. 2+ DP pulse. BL LE: Calves supple and nontender. Brisk capillary refill, 2+ DP pulse. RUE: Sling in place, ecchymosis and swelling of RUE to fingers. Upper arm tender , supple. Forearm nontender, warm and supple. Sensation intact throughout right hand, radial pulse 2+, able to flex and extend wrist. Able to make fist, not able to touch 5th finger with thumb, good chief of safety and protection strength, able to flex, extend, abduct and adduct all digits. Sensation intact throughout all digits. Assessment: S/P right hip hemiarthroplasty on 11/[address] Castillo. S/P Right proximal humerous ORIF with Dr. Carranza on 12/01. Stable Plan: - Daily dry sterile dressing changes of RLE - Lovenox as DVT prophylaxis - Compression stockings ordered and to be placed today. - WBAT RLE as safely able due to same side humerus fracture resulting in NWB RUE - Appreciate hospitalist team co-management. - Meropenam for UTI, post-op antibiotics - Consult to PMRU today, if not able to take will send to [facility].
[2017-12-02] MEDS: ALPRAZolam TAB* 0.5 MG PO SCH (09:01)
[2017-12-02] MEDS: Atorvastatin* 10 MG TAB PO SCH (09:02)
[2017-12-02] MEDS: Valsartan TAB* 40 MG PO SCH (09:03)
[2017-12-02] MEDS: Thiamine TAB* 100 MG TAB PO SCH (09:03)
[2017-12-02] MEDS: Multivitamins/Minerals TAB PO SCH (09:04)
[2017-12-02] MEDS: Folic Acid TAB* 1 MG PO SCH (09:04)
[2017-12-02] MEDS: PTO:Albuterol/Ipratropium RESP(NF) MDI (Combivent Respimat) INH PRN ×2 (09:05→19:52)
[2017-12-02] MEDS: Sertraline* 50 MG TAB PO SCH (09:05)
[2017-12-02] MEDS: PTO:Budesonide/Formote 160/4.5(NF) MDI INH SCH ×2 (09:07→19:52)
--- NOTE | 2017-12-02 18:12 | PN ---
Subjective Date of Service: 12/02/17 Interval History: Pain mostly in R shoulder. Appetite OK. No new c/o. Objective Active Medications: Acetaminophen (Tylenol Tab*) 650 mg PO Q4H PRN PRN Reason: FEVER/PAIN Albuterol (Ventolin 2.5 Mg/3 Ml Neb.Beulah*) 2.5 mg INH Q4H PRN PRN Reason: SOB/WHEEZING Albuterol/Ipratropium (Combivent Respimat(Nf)) 2 puff INH Q6HR PRN; Protocol PRN Reason: SOB/WHEEZING Last Admin: 12/02/17 09:05 Dose: 2 puff Alprazolam (Xanax Tab*) 0.5 mg PO DAILY [facility] Last Admin: 12/02/17 09:01 Dose: 0.5 mg Aspirin (Aspirin 81 Mg Chew Tab*) 81 mg PO 1999 [facility] Last Admin: 12/01/17 19:58 Dose: 81 mg Atorvastatin Calcium (Lipitor*) 10 mg PO DAILY [facility] Last Admin: 12/02/17 09:02 Dose: 10 mg Budesonide/Formoterol Fumarate (Symbicort 160/4.5 (Nf)) 2 puff INH BID QI PRN Reason: Protocol Last Admin: 12/02/17 09:07 Dose: 2 puff Cyclobenzaprine HCl (Flexeril Tab*) 10 mg PO BID PRN PRN Reason: SPASMS Last Admin: 11/29/17 20:30 Dose: 10 mg Diazepam (Valium Tab(*)) 5 mg PO Q6H PRN PRN Reason: ANXIETY Diazepam (Valium Inj (Nf)) 2 mg IV Q6H PRN PRN Reason: ANXIETY Diphenhydramine HCl (Benadryl Po*) 25 mg PO BEDTIME PRN PRN Reason: INSOMNIA Last Admin: 12/01/17 20:40 Dose: 25 mg Folic Acid (Folvite Tab*) 1 mg PO DAILY [facility] Last Admin: 12/02/17 09:04 Dose: 1 mg Meropenem (Merrem 1 Gm Premix(*)) 1 gm in 50 mls @ 100 mls/hr IV Q8H [facility] Last Admin: 12/02/17 14:00 Dose: 100 mls/hr Levothyroxine Sodium (Synthroid Tab*) 50 mcg PO 06 [facility] Last Admin: 12/02/17 04:59 Dose: 50 mcg Magnesium Hydroxide (Milk Of Magnesia Liq*) 30 ml PO BID [facility] Last Admin: 12/02/17 08:07 Dose: Not Given Magnesium Hydroxide (Milk Of Magnesia Liq*) 30 ml PO Q6H PRN PRN Reason: constipation Metoprolol Tartrate (Lopressor Tab*) 50 mg PO 799,1999 [facility] Last Admin: 12/02/17 08:05 Dose: 50 mg Metoprolol Tartrate (Lopressor Iv*) 5 mg IV Q6H PRN PRN Reason: BLOOD PRESSURE Last Admin: 11/30/17 11:29 Dose: 5 mg Multivitamins/Minerals (Theragran/Minerals Tab*) 1 tab PO DAILY [facility] Last Admin: 12/02/17 09:04 Dose: 1 tab Ondansetron HCl (Zofran Inj*) 4 mg IV Q6H PRN PRN Reason: NAUSEA Oxycodone/Acetaminophen (Percocet 5/325 Tab*) 2 tab PO Q4H PRN PRN Reason: PAIN Last Admin: 12/02/17 09:15 Dose: 2 tab Oxycodone/Acetaminophen (Percocet 5/325 Tab*) 1 tab PO Q4H PRN PRN Reason: PAIN Last Admin: 12/02/17 13:56 Dose: 1 tab Sertraline HCl (Zoloft*) 50 mg PO DAILY [facility] Last Admin: 12/02/17 09:05 Dose: 50 mg Thiamine HCl (Vitamin B-1 Tab*) 100 mg PO DAILY [facility] Last Admin: 12/02/17 09:03 Dose: 100 mg Valsartan (Diovan Tab*) 40 mg PO DAILY [facility] Last Admin: 12/02/17 09:03 Dose: 40 mg Vital Signs - 8 hr 12/02/17 12/02/17 12/02/17 11:36 11:50 13:56 Temperature 98.4 F Pulse Rate 70 Respiratory 18 18 17 Rate Blood Pressure (mmHg) O2 Sat by Pulse 100 Oximetry 12/02/17 12/02/17 15:15 16:42 Temperature 98.3 F Pulse Rate 79 Respiratory 16 18 Rate Blood Pressure 134/79 (mmHg) O2 Sat by Pulse 100 Oximetry Oxygen Devices in Use Now: Nasal Cannula Appearance: Alert, partly up in bed. In good spirits. Looks comfortable at rest. Eyes: No Scleral Icterus Respiratory: Symmetrical Chest Expansion and Respiratory Effort, Clear to Auscultation, Clear to Percussion Cardiovascular: NL Sounds; No Murmurs; No JVD, RRR, No Edema, - Extremities: No Clubbing, Cyanosis, - - R hand edema markedly decreased since SHARIFA removed. Neurological: Alert and Oriented x 3, NL Sensation - Good handgrips BL. Affect appropriate. No tremor. Result Diagrams: 12/01/17 11:05 11/30/17 06:13 Additional Lab and Data: . Microbiology and Other Data: . Diagnostic Imaging: . Assess/Plan/Problems-Billing Assessment: Ms. Cabello is a 72 year old female with complex hx of COPD, mouth cancer, hypothyroidism, hypertension that sustained mechanical fall with subsequent right humerus fracture and right hip fracture. She is POD #4 from right hip ORIF and needs right humerus fracture repaired. However, post operative course complicated by confusion related to ETOH withdrawal and resistant UTI. - Patient Problems (1) Delirium Current Visit: No Status: Acute Code(s): R41.0 - DISORIENTATION, UNSPECIFIED SNOMED Code(s): 1259056 Comment: - Likely related to hospitalization, uti/sepsis, anesthesia, narcotics, benzo/ etoh withdrawal - Continue xanax scheduled as at home. PRN diazepam IV or PO. Seems to have completely cleared her AMS as of 12/02. (2) UTI (urinary tract infection) Current Visit: Yes Status: Acute Comment: P. aeruginosa UTI. - Switched from zosyn to meropenem 11/29. Removed Castellanos 0600 12/02/17. I would continue meropenem until either 5/8 PM or 510 AM depending on whether Micro lab can confirm Zosyn covers her pathogen. (3) CAD (coronary artery disease) Current Visit: No Status: Acute Code(s): I25.10 - ATHSCL HEART DISEASE OF [place] CORONARY ARTERY W/O ANG PCTRS SNOMED Code(s): 05267942 Comment: - Continue statin, ASA. HR and BP up in AM 5 due to holding meds for surgery. Catch up on AM meds. (4) COPD (chronic obstructive pulmonary disease) Current Visit: No Status: Acute Code(s): J44.9 - CHRONIC OBSTRUCTIVE PULMONARY DISEASE, UNSPECIFIED SNOMED Code(s): 98803538 Comment: - No signs of exacerbation - Continue Symbicort, PRN albuterol. (5) Hyponatremia Current Visit: No Status: Acute Code(s): E87.1 - HYPO-OSMOLALITY AND HYPONATREMIA SNOMED Code(s): 85216389 Comment: Chronic. Better on 11/30. Pt advised to drink water in moderation. She c/o dry mouth. I suggested using lemon candies. (6) Humerus fracture Current Visit: Yes Status: Acute Code(s): S42.309A - UNSP FRACTURE OF SHAFT OF HUMERUS, UNSP ARM, INIT SNOMED Code(s): 42920864 Comment: S/P humerus and femur fx ORIF 2 separate operations. PMRU eval requested. Status and Disposition: Inpatient, will likely need rehab
[2017-12-02] MEDS: Aspirin 81 mg CHEW TAB* 81 MG TAB.CHEW PO SCH (20:08)
[2017-12-02] MEDS ORDERED: Metoprolol Tartrate TAB* 25 MG PO ONE (20:21)
[2017-12-02] MEDS: diPHENhydraMINE PO* 25 MG PO PRN (22:40)
[2017-12-03] MEDS ORDERED: oxyCODONE/Acetamin 5/325 MG* TAB PO PRN (01:25)
[2017-12-03] MEDS: oxyCODONE/Acetamin 5/325 MG* TAB PO PRN ×4 (04:10→18:33)
[2017-12-03] MEDS: PTO:Albuterol/Ipratropium RESP(NF) MDI (Combivent Respimat) INH PRN ×5 (04:24→20:05)
[2017-12-03] MEDS: Meropenem 1 GM PREMIX(*) 1 GM/50 ML BAG IV SCH ×3 (05:32→21:02)
[2017-12-03] MEDS: Levothyroxine TAB* 50 MCG TAB PO SCH (05:33)
[2017-12-03 05:39] LABS: ABS Basophils 0 10^3/ul (0-0.2); ABS Eosinophils 0.1 10^3/ul (0-0.6); ABS Lymphocytes 0.6 10^3/ul (1.0-4.8); ABS Monocytes 0.9 10^3/ul (0-0.8); ABS Neutrophils 5.7 10^3/ul (1.5-7.7); ABS Nucleated RBC 0 10^3/ul; Eosinophil % 1.5 % (0-6); Hematocrit 27 % (35-47); Hemoglobin 9.1 g/dl (12.0-16.0); Lymphocyte % 8.1 % (25-47); Mean Corpuscular HGB Conc 34 g/dl (31-36); Mean Corpuscular Hemoglobin 33 pg (27-31); Mean Corpuscular Volume 97 fL (80-97); Mean Platelet Volume 6.5 um3 (7.4-10.4); Nucleated Red Blood Cells % 0.1; Platelet Count 271 10^3/ul (150-450); Red Blood Count 2.75 10^6/ul (4.0-5.4); Red Cell Distribution Width 19 % (10.5-15); White Blood Count 7.2 10^3/ul (3.5-10.8)
[2017-12-03 06:08] LABS: EGFR Non-African American 141.4 (>60)
[2017-12-03] MEDS: PTO:Budesonide/Formote 160/4.5(NF) MDI INH SCH ×2 (07:47→20:01)
--- NOTE | 2017-12-03 08:13 | PN ---
Progress Note - Progress Note Date of Service: 12/03/17 SOAP: Subjective: 72 y/o female s/p R hip hemiarthroplasty 11/[address] Castillo with right proximal humerus fracture s/p ORIF with Dr. Carranza on 12/01/17. Patient reports having pain with abduction, however improved from prior exams. More alert and awake than previous exams. VSS, afebrile overnight. Objective: General- Well appearing, NAD, AO, resting comfortably in chair eating lunch MSK- RUE- Surgical dressing intact, no drainage, odor noted. + good funds development director strength, radial pulse 2+, SITLT. Vital Signs Temp 98.0 F 12/03/17 07:34 Pulse 80 12/03/17 07:34 Resp 22 12/03/17 07:34 BP 128/64 12/03/17 07:34 Pulse Ox 92 12/03/17 07:34 Intake & Output 12/02/17 12/03/17 12/03/17 18:59 06:59 18:59 Intake Total 1230 1295 Output Total 1100 0 Balance 130 1295 Intake: IV Fluids 70 45 Meropenem 50 45 NS (0.9%) 20 Oral 1160 1250 Output: Urine 0 Castellanos 700 Liquid Stool 400 Other: Estimated Void Medium Date of Last Bowel 12/02/17 Movement # Bowel Movements 4 Estimated Stool Amount Medium Assessment: Stable s/p R hip hemiarthroplasty 11/[address] Castillo with right proximal humerus fracture s/p ORIF with Dr. Carranza on 12/01/17. Plan: - Daily dry sterile dressing changes of RLE - Lovenox as DVT prophylaxis - Compression stockings ordered and to be placed today. - WBAT RLE as safely able due to same side humerus fracture resulting in NWB RUE - Appreciate hospitalist team co-management. - Meropenam for UTI- completed today - D/C- PMRU accepted when ready for D/C. Acetaminophen (Tylenol Tab*) 650 mg PO Q4H PRN PRN Reason: FEVER/PAIN Albuterol (Ventolin 2.5 Mg/3 Ml Neb.Beulah*) 2.5 mg INH Q4H PRN PRN Reason: SOB/WHEEZING Albuterol/Ipratropium (Combivent Respimat(Nf)) 2 puff INH Q6HR PRN; Protocol PRN Reason: SOB/WHEEZING Last Admin: 12/03/17 07:46 Dose: 2 puff Alprazolam (Xanax Tab*) 0.5 mg PO DAILY [facility] Last Admin: 12/02/17 09:01 Dose: 0.5 mg Aspirin (Aspirin 81 Mg Chew Tab*) 81 mg PO 1999 [facility] Last Admin: 12/02/17 20:08 Dose: 81 mg Atorvastatin Calcium (Lipitor*) 10 mg PO DAILY [facility] Last Admin: 12/02/17 09:02 Dose: 10 mg Budesonide/Formoterol Fumarate (Symbicort 160/4.5 (Nf)) 2 puff INH BID [facility] PRN Reason: Protocol Last Admin: 12/03/17 07:47 Dose: 2 puff Cyclobenzaprine HCl (Flexeril Tab*) 10 mg PO BID PRN PRN Reason: SPASMS Last Admin: 11/29/17 20:30 Dose: 10 mg Diazepam (Valium Tab(*)) 5 mg PO Q6H PRN PRN Reason: ANXIETY Diazepam (Valium Inj (Nf)) 2 mg IV Q6H PRN PRN Reason: ANXIETY Diphenhydramine HCl (Benadryl Po*) 25 mg PO BEDTIME PRN PRN Reason: INSOMNIA Last Admin: 12/02/17 22:40 Dose: 25 mg Folic Acid (Folvite Tab*) 1 mg PO DAILY [facility] Last Admin: 12/02/17 09:04 Dose: 1 mg Meropenem (Merrem 1 Gm Premix(*)) 1 gm in 50 mls @ 100 mls/hr IV Q8H [facility] Last Admin: 12/03/17 05:32 Dose: 100 mls/hr Levothyroxine Sodium (Synthroid Tab*) 50 mcg PO 06 [facility] Last Admin: 12/03/17 05:33 Dose: 50 mcg Magnesium Hydroxide (Milk Of Magnesia Liq*) 30 ml PO BID [facility] Last Admin: 12/02/17 21:55 Dose: Not Given Magnesium Hydroxide (Milk Of Magnesia Liq*) 30 ml PO Q6H PRN PRN Reason: constipation Metoprolol Tartrate (Lopressor Tab*) 50 mg PO 0800,1999 [facility] Last Admin: 12/02/17 20:21 Dose: Not Given Metoprolol Tartrate (Lopressor Iv*) 5 mg IV Q6H PRN PRN Reason: BLOOD PRESSURE Last Admin: 11/30/17 11:29 Dose: 5 mg Multivitamins/Minerals (Theragran/Minerals Tab*) 1 tab PO DAILY [facility] Last Admin: 12/02/17 09:04 Dose: 1 tab Ondansetron HCl (Zofran Inj*) 4 mg IV Q6H PRN PRN Reason: NAUSEA Oxycodone/Acetaminophen (Percocet 5/325 Tab*) 1 tab PO Q4H PRN PRN Reason: PAIN Oxycodone/Acetaminophen (Percocet 5/325 Tab*) 2 tab PO Q4H PRN PRN Reason: PAIN Last Admin: 12/03/17 04:10 Dose: 2 tab Sertraline HCl (Zoloft*) 50 mg PO DAILY [facility] Last Admin: 12/02/17 09:05 Dose: 50 mg Thiamine HCl (Vitamin B-1 Tab*) 100 mg PO DAILY [facility] Last Admin: 12/02/17 09:03 Dose: 100 mg Valsartan (Diovan Tab*) 40 mg PO DAILY [facility] Last Admin: 12/02/17 09:03 Dose: 40 mg Laboratory Results - last 24 hr 11/30/17 12/03/17 12/03/17 06:13 05:17 05:17 WBC 7.2 RBC 2.75 L Hgb 9.1 L Hct 27 L MCV 97 MCH 33 H MCHC 34 RDW 19 H Plt Count 271 MPV 6.5 L Neut % (Auto) 78.5 Lymph % (Auto) 8.1 L [place] % (Auto) 11.8 H Eos % (Auto) 1.5 Baso % (Auto) 0.1 Absolute Neuts (auto) 5.7 Absolute Lymphs (auto) 0.6 L Absolute Monos (auto) 0.9 H Absolute Eos (auto) 0.1 Absolute Basos (auto) 0 Absolute Nucleated RBC 0 Nucleated RBC % 0.1 Sodium 133 L Potassium 3.8 Chloride 98 L Carbon Dioxide 33 H Anion Gap 2 BUN 9 Creatinine 0.44 L Est GFR ( Amer) 181.8 Est GFR (Non-Af Amer) 141.4 BUN/Creatinine Ratio 20.5 H Glucose 94 Calcium 8.0 L 25-OH Vitamin D Total 13.8 L Crossmatch See Detail
[2017-12-03] MEDS: Metoprolol Tartrate TAB* 50 mg PO SCH ×2 (08:22→20:44)
[2017-12-03] MEDS: Multivitamins/Minerals TAB PO SCH (08:22)
[2017-12-03] MEDS: Atorvastatin* 10 MG TAB PO SCH (08:22)
[2017-12-03] MEDS: Valsartan TAB* 40 MG PO SCH (08:23)
[2017-12-03] MEDS: ALPRAZolam TAB* 0.5 MG PO SCH (08:23)
[2017-12-03] MEDS: Thiamine TAB* 100 MG TAB PO SCH (08:23)
[2017-12-03] MEDS: Sertraline* 50 MG TAB PO SCH (08:23)
[2017-12-03] MEDS: Folic Acid TAB* 1 MG PO SCH (08:24)
[2017-12-03] MEDS: Magnesium Hydroxide LIQ* 30 ML UDC PO SCH ×2 (08:25→20:45)
[2017-12-03] MEDS ORDERED: Enoxaparin(*) 30 MG/0.3 ML SYR SUBCUT SCH (13:00)
[2017-12-03] MEDS ORDERED: Albuterol 2.5 MG/3 ML NEB.SOL* (0.083%) INH SCH (13:00)
[2017-12-03] MEDS: Al Hydrox/Mg Hydrox/Simet LIQ* 30 ML UDC PO PRN (13:33)
--- NOTE | 2017-12-03 14:46 | PN ---
Subjective Date of Service: 12/03/17 Interval History: No overnight events. Feels better, does not remember seeing me last week. She is having some pain in her shoulder, none in the hip. She has been working with PT. Objective Active Medications: Acetaminophen (Tylenol Tab*) 650 mg PO Q4H PRN PRN Reason: FEVER/PAIN Al Hydrox/Mg Hydrox/Simethicone (Maalox Plus*) 30 ml PO Q4H PRN PRN Reason: INDIGESTION Last Admin: 12/03/17 13:33 Dose: 30 ml Albuterol/Ipratropium (Combivent Respimat(Nf)) 2 puff INH Q6HR PRN; Protocol PRN Reason: SOB/WHEEZING Last Admin: 12/03/17 07:46 Dose: 2 puff Alprazolam (Xanax Tab*) 0.5 mg PO DAILY [facility] Last Admin: 12/03/17 08:23 Dose: 0.5 mg Aspirin (Aspirin 81 Mg Chew Tab*) 81 mg PO 2000 [facility] Last Admin: 12/02/17 20:08 Dose: 81 mg Atorvastatin Calcium (Lipitor*) 10 mg PO DAILY [facility] Last Admin: 12/03/17 08:22 Dose: 10 mg Budesonide/Formoterol Fumarate (Symbicort 160/4.5 (Nf)) 2 puff INH BID [facility] PRN Reason: Protocol Last Admin: 12/03/17 07:47 Dose: 2 puff Cyclobenzaprine HCl (Flexeril Tab*) 10 mg PO BID PRN PRN Reason: SPASMS Last Admin: 11/29/17 20:30 Dose: 10 mg Diazepam (Valium Tab(*)) 5 mg PO Q6H PRN PRN Reason: ANXIETY Diazepam (Valium Inj (Nf)) 2 mg IV Q6H PRN PRN Reason: ANXIETY Diphenhydramine HCl (Benadryl Po*) 25 mg PO BEDTIME PRN PRN Reason: INSOMNIA Last Admin: 12/02/17 22:40 Dose: 25 mg Enoxaparin Sodium (Lovenox(*)) 30 mg SUBCUT Q24H [facility] Last Admin: 12/03/17 13:33 Dose: 30 mg Folic Acid (Folvite Tab*) 1 mg PO DAILY [facility] Last Admin: 12/03/17 08:24 Dose: 1 mg Meropenem (Merrem 1 Gm Premix(*)) 1 gm in 50 mls @ 100 mls/hr IV Q8H [facility] Last Admin: 12/03/17 13:33 Dose: 100 mls/hr Levothyroxine Sodium (Synthroid Tab*) 50 mcg PO 0600 [facility] Last Admin: 12/03/17 05:33 Dose: 50 mcg Magnesium Hydroxide (Milk Of Magnesia Liq*) 30 ml PO BID [facility] Last Admin: 12/03/17 08:25 Dose: Not Given Magnesium Hydroxide (Milk Of Magnesia Liq*) 30 ml PO Q6H PRN PRN Reason: constipation Metoprolol Tartrate (Lopressor Tab*) 50 mg PO [facility] Last Admin: 12/03/17 08:22 Dose: 50 mg Metoprolol Tartrate (Lopressor Iv*) 5 mg IV Q6H PRN PRN Reason: BLOOD PRESSURE Last Admin: 11/30/17 11:29 Dose: 5 mg Multivitamins/Minerals (Theragran/Minerals Tab*) 1 tab PO DAILY [facility] Last Admin: 12/03/17 08:22 Dose: 1 tab Ondansetron HCl (Zofran Inj*) 4 mg IV Q6H PRN PRN Reason: NAUSEA Oxycodone/Acetaminophen (Percocet 5/325 Tab*) 1 tab PO Q4H PRN PRN Reason: PAIN Oxycodone/Acetaminophen (Percocet 5/325 Tab*) 2 tab PO Q4H PRN PRN Reason: PAIN Last Admin: 12/03/17 12:22 Dose: 2 tab Sertraline HCl (Zoloft*) 50 mg PO DAILY [facility] Last Admin: 12/03/17 08:23 Dose: 50 mg Thiamine HCl (Vitamin B-1 Tab*) 100 mg PO DAILY [facility] Last Admin: 12/03/17 08:23 Dose: 100 mg Valsartan (Diovan Tab*) 40 mg PO DAILY [facility] Last Admin: 12/03/17 08:23 Dose: 40 mg Vital Signs - 8 hr 12/03/17 12/03/17 12/03/17 07:34 08:23 08:24 Temperature 98.0 F Pulse Rate 80 Respiratory 22 18 18 Rate Blood Pressure 128/64 (mmHg) O2 Sat by Pulse 92 Oximetry 12/03/17 12/03/17 12/03/17 08:30 10:32 11:22 Temperature 97.8 F Pulse Rate 72 Respiratory 20 16 17 Rate Blood Pressure 104/54 (mmHg) O2 Sat by Pulse 99 Oximetry 12/03/17 12:22 Temperature Pulse Rate Respiratory 18 Rate Blood Pressure (mmHg) O2 Sat by Pulse Oximetry Oxygen Devices in Use Now: Nasal Cannula Appearance: alert, sitting up in chair, more coherent than last week Eyes: No Scleral Icterus Ears/Nose/Mouth/Throat: NL Teeth, Lips, Gums Neck: NL Appearance and Movements; NL JVP Respiratory: Symmetrical Chest Expansion and Respiratory Effort, - - prolonged expiratory phase, no wheezing Cardiovascular: NL Sounds; No Murmurs; No JVD, RRR Abdominal: NL Sounds; No Tenderness; No Distention, No Hepatosplenomegaly Lymphatic: No Cervical Adenopathy Extremities: No Edema Skin: - - scattered echymoses Neurological: Alert and Oriented x 3, - - no asterixis Result Diagrams: 12/03/17 05:17 12/03/17 05:17 Additional Lab and Data: . Microbiology and Other Data: . Diagnostic Imaging: . Assess/Plan/Problems-Billing Assessment: Ms. Cabello is a 72 year old female with a hx of COPD (on 2L home o2) , mouth cancer , hypothyroidism, hypertension, and etoh abuse that sustained mechanical fall with right humerus fracture and right hip fracture. She underwent hip orif 11/25 , the post-op course was complicated by etoh withdrawal, which delayed humerus repair. She underwent humerus repair 12/01. - Patient Problems (1) Right humeral fracture Current Visit: Yes Status: Acute Code(s): S42.301A - UNSP FRACTURE OF SHAFT OF HUMERUS, RIGHT ARM, INIT SNOMED Code(s): 90012202 Comment: POD #2 PT/OT plan for PMRU (2) Delirium Current Visit: No Status: Acute Code(s): R41.0 - DISORIENTATION, UNSPECIFIED SNOMED Code(s): 5372134 Comment: resolved related to etoh/benzo withdrawal, likely worsened by hospitalization and UTI (3) Tachycardia Current Visit: Yes Status: Acute Code(s): R00.0 - TACHYCARDIA, UNSPECIFIED SNOMED Code(s): 6539657 Comment: resolved, likely was related to etoh/benzo withdrawal and sepsis (4) Postoperative anemia Current Visit: Yes Status: Acute Code(s): D64.9 - ANEMIA, UNSPECIFIED SNOMED Code(s): 725827579 Comment: stable, did receive 3U prbcs this admission (5) Closed left hip fracture Current Visit: No Status: Acute Code(s): S72.002A - FRACTURE OF UNSP PART OF NECK OF LEFT FEMUR, INIT SNOMED Code(s): 297052408 Comment: POD #8 ORIF (6) Hyponatremia Current Visit: No Status: Acute Code(s): E87.1 - HYPO-OSMOLALITY AND HYPONATREMIA SNOMED Code(s): 62036063 Comment: Chronic. Likely related to etoh abuse. May be contributing to falls (now with 2 hip fractures and a humerus fracture in 6 months), however now I suspect etoh is the major factor related to falls. Still, I might consider a vaptan for her in the future. (7) Physical deconditioning Current Visit: No Status: Acute Code(s): R53.81 - OTHER MALAISE SNOMED Code(s): 05468186530951 Comment: PMRU evaluating (8) UTI (urinary tract infection) Current Visit: Yes Status: Acute Comment: P. aeruginosa UTI. Switched from zosyn to meropenem /. Continue for 2 more days. Status and Disposition: Medically ready for PMRU
[2017-12-03] MEDS: Aspirin 81 mg CHEW TAB* 81 MG TAB.CHEW PO SCH (20:45)
[2017-12-04] MEDS: Al Hydrox/Mg Hydrox/Simet LIQ* 30 ML UDC PO PRN (05:09)
[2017-12-04] MEDS: oxyCODONE/Acetamin 5/325 MG* TAB PO PRN ×2 (05:10→09:49)
[2017-12-04] MEDS: Levothyroxine TAB* 50 MCG TAB PO SCH (05:11)
[2017-12-04] MEDS: Meropenem 1 GM PREMIX(*) 1 GM/50 ML BAG IV SCH (05:13)
[2017-12-04 06:16] LABS: Hematocrit 30 % (35-47); Hemoglobin 10.2 g/dl (12.0-16.0); Mean Corpuscular HGB Conc 34 g/dl (31-36); Mean Corpuscular Hemoglobin 33 pg (27-31); Mean Corpuscular Volume 97 fL (80-97); Mean Platelet Volume 6.2 um3 (7.4-10.4); Platelet Count 291 10^3/ul (150-450); Red Blood Count 3.11 10^6/ul (4.0-5.4); Red Cell Distribution Width 19 % (10.5-15); White Blood Count 8.4 10^3/ul (3.5-10.8)
[2017-12-04 06:54] LABS: ABS Basophils 0 10^3/ul (0-0.2); ABS Eosinophils 0.1 10^3/ul (0-0.6); ABS Lymphocytes 0.6 10^3/ul (1.0-4.8); ABS Monocytes 0.6 10^3/ul (0-0.8)
[2017-12-04 07:38] LABS: ABS Nucleated RBC 0 10^3/ul; Eosinophil % 1.5 % (0-6); Lymphocyte % 6.6 % (25-47); Nucleated Red Blood Cells % 0.2
[2017-12-04 08:11] VITALS: BP 161/82
[2017-12-04] MEDS ORDERED: Calcium Carbonate CHEW TAB* 500 MG (TUMS) PO PRN (08:14)
[2017-12-04] MEDS: Magnesium Hydroxide LIQ* 30 ML UDC PO SCH (08:14)
[2017-12-04] MEDS: Multivitamins/Minerals TAB PO SCH (08:27)
[2017-12-04] MEDS: PTO:Budesonide/Formote 160/4.5(NF) MDI INH SCH (08:27)
[2017-12-04] MEDS: Metoprolol Tartrate TAB* 50 mg PO SCH (08:29)
[2017-12-04] MEDS: Thiamine TAB* 100 MG TAB PO SCH (08:29)
[2017-12-04] MEDS: ALPRAZolam TAB* 0.5 MG PO SCH (08:29)
[2017-12-04] MEDS: Sertraline* 50 MG TAB PO SCH (08:29)
[2017-12-04] MEDS: Folic Acid TAB* 1 MG PO SCH (08:29)
[2017-12-04] MEDS: Valsartan TAB* 40 MG PO SCH (08:30)
[2017-12-04] MEDS: Atorvastatin* 10 MG TAB PO SCH (08:30)
--- NOTE | 2017-12-04 11:01 | DS ---
DATE OF ADMISSION: 11/24/2017. DATE OF DISCHARGE: 12/04/2017. PRIMARY CARE PHYSICIAN: Dr. James. PRINCIPAL DISCHARGE DIAGNOSES: 1. Right femoral neck fracture. 2. Humerus fracture. 3. Alcohol withdrawal. 4. Benzodiazepine withdrawal. 5. Complicated UTI. 6. Hypertension. SECONDARY DIAGNOSES: 1. Coronary artery disease. 2. Chronic hypoxic respiratory failure. 3. COPD. 4. Chronic hyponatremia. HOSPITAL COURSE BY PROBLEM: 1. Right hip fracture: She underwent ORIF with Orthopedic Surgery on 2017. She is being discharged to [facility]. 2. Humerus fracture: She underwent surgical repair with Dr. Carranza on 2017. 3. Postop delirium: This was thought to be multifactorial; however, most significantly related to alcohol withdrawal. Her daughter related to me that she drinks far more than she has admitted to and she admitted to one bottle of wine per night. She was placed on the [facility] protocol with valium due to a history of agitation with Ativan and delirium, hypertension, and tachycardia slowly improved. It was also noted that she takes Xanax around the clock at home and was only getting it prn here, which she was not getting as frequently as she was taking at home, so benzodiazepine withdrawal may have also been contributing and she was also found to have a UTI that had been resistant to empiric antibiotics which may have also contributed to her delirium. At the time of discharge, she is oriented times three, answers questions appropriately , and is much more lucid. 4. Alcohol withdrawal: As above, she was treated with valium on the [facility] protocol. She should be continued on thiamine, folic acid, and a multivitamin. 5. Complicated UTI: She was found to have pseudomonas in her urine that was resistant to everything except Gentamicin and Meropenem. Her last day of Meropenem will be 12/05/2017. 6. History of coronary artery disease: She was continued on Metoprolol, but at a higher dose. She is now on Metoprolol extended release 100 mg daily. 7. Hypertension: She was continued on Valsartan and Metoprolol. DISPOSITION: She is being discharged to [facility]. DISCHARGE MEDICATIONS: 1. Symbicort two puffs b.i.d. 2. Sertraline 50 mg daily. 3. Atorvastatin 10 mg daily. 4. DuoNeb q.6 prn wheezing. 5. Combivent two puffs q.i.d. prn wheezing. 6. Valsartan 80 mg daily. 7. Levothyroxine 50 mcg daily. 8. Aspirin 81 mg daily. 9. Folic acid 1 mg daily. 10. Multivitamin daily. 11. Percocet two tabs q.4 prn pain. 12. Thiamine 100 mg daily. 13. Valsartan 40 mg daily. 14. Meropenem 1 gm q.8 with the ending date being 12/05/2017. 15. Metoprolol Succinate 100 mg daily. 16. Xanax 0.5 mg t.i.d. PHYSICAL EXAMINATION AT THE TIME OF DISCHARGE: General: Alert, well-appearing, oriented times three in no distress. Vital Signs: Temperature 98.7, heart rate 79, respiratory rate 18, blood pressure 161/82. HEENT: Pupils equal, round, and reactive to light. No nystagmus. Moist mucosa. Neck: No JVP, no adenopathy. Chest: Regular rate and rhythm. No murmurs. PMI is nondisplaced. Lungs have a prolonged expiratory phase with no wheezing or rhonchi. Abdomen: Soft, nontender, nondistended. No guarding or rebound. Some subcutaneous edema is noted. Extremities: No rashes or ulcers. Right hip incision is stapled and dressed with no drainage or erythema. Right humerus incision is dressed and in a sling. She has no asterixis. Please feel free to call me with any questions or concerns about Ms. Cabello's discharge. My phone number is [phone]. [id number]/[facility] #: [id number] [facility]ITAL[facility]ang
--- NOTE | 2017-12-04 15:25 | OP ---
DATE OF OPERATION: 12/01/17 - ROOM #333 DATE OF : 49 SURGEON: Be Carranza MD. EXTRUSION DIE REPAIRER: VICKEY Higgins. An after school program assistant was needed for the procedure to aid in positioning of the arm and retraction. ANESTHESIOLOGIST: Dr. Erickson. ANESTHESIA: Peripheral nerve block plus MAC. PRE-OP DIAGNOSIS: Displaced right proximal humerus fracture. POST-OP DIAGNOSIS: Displaced right proximal humerus fracture. OPERATIVE PROCEDURE: Open reduction and internal fixation of right shoulder proximal humerus fracture. INDICATIONS: Trina had a very displaced fracture involving the proximal humerus. It was then quite a bit of a varus and very shortened. She had her right hip addressed surgically a week ago as she injured the femoral neck in the same fall. She has had a challenging week medically, but is now medically improving and so she was brought to surgery for stabilization of the right arm today. ESTIMATED BLOOD LOSS: 100 mL. COMPLICATIONS: None. FINDINGS: As expected. See above and below. DESCRIPTION OF PROCEDURE: Trina was seen in the preoperative holding area. The correct side, site, and procedure were identified. The patient was then brought back to the operating room where she was placed in a lazy beach chair position using the beach chair table. The arm was prepped and draped in the usual fashion. A time-out was performed. I began by making an incision starting just lateral to the coracoid process and extending down in line with lateral aspect of the biceps. Dissection was carried down. The deltopectoral fascia was opened. The cephalic vein was retracted laterally. Subdeltoid recess was mobilized and a couple of Hohmann retractors were placed there. The fracture was very displaced. I went ahead and released the soft tissues subperiosteally just lateral to the biceps tendon , which was located and palpated in the distal aspect of the intertrabecular groove. I went ahead and abducted the arm, pulled traction, and got the shaft back under the humeral head. I then brought the arm back down to the side and this brought the head out of varus. Placed a couple of K-wires through the humeral head. I used these to bring the humeral head out of internal rotation and out of varus. I then reduced the shaft back to the humeral head. I brought in my Synthes proximal humerus anatomical locking plate. This was pinned into place proximally and clamped into place distally. I brought in the C-arm and confirmed the reduction and plate placement. Initially, my plate was a little proximal and so I switched it out and moved it a little bit more distal and then I confirmed the position on fluoroscopy. I then placed a cortical screw in the oblong hole distally. I then placed all of my proximal locking screws including the calcar screws in subchondral fashion. The remainder of the distal screws were filled with 2.5 mm cortical screws and 1 locking screw due to her age and osteopenia. Once the fixation was in place and everything was looking good, we irrigated out the wound. The deltopectoral fascia was closed with 2-0 Vicryl suture. The subcutaneous tissue was reapproximated with 2-0 Vicryl suture. Skin was closed with nancy. The wound was dressed with Xeroform, 4x4s, ABD, and foam tape. She was then woken up and taken to the recovery room in stable condition. [id number]/[facility] #: [id number] [facility]
== END 2017-12-04 10:20 | DRG 469 ==
LOC: ED 11:33 → SSU 15:14 → MEDTELE 11-28 20:00 → SSU 12-02 04:30
PROVIDERS: ADMIT Internal Medicine; ATTEND Internal Medicine
PROC: 30233N1 Transfusion of Nonautologous Red Blood Cells into Peripheral Vein, Percutaneous Approach (ICD-10-PCS; 2017-11-25)
PROC: 0PSC04Z Reposition Right Humeral Head with Internal Fixation Device, Open Approach (ICD-10-PCS; principal; 2017-11-25 19:00)
PROC: 0SRR01A Replacement of Right Hip Joint, Femoral Surface with Metal Synthetic Substitute, Uncemented, Open Approach (ICD-10-PCS; 2017-12-03)
DX: S42.201A Unspecified fracture of upper end of right humerus, initial encounter for closed fracture (principal); S72.011A Unspecified intracapsular fracture of right femur, initial encounter for closed fracture; E43 Unspecified severe protein-calorie malnutrition; R64 Cachexia; N39.0 Urinary tract infection, site not specified; J96.11 Chronic respiratory failure with hypoxia; E87.1 Hypo-osmolality and hyponatremia; F10.239 Alcohol dependence with withdrawal, unspecified; E89.0 Postprocedural hypothyroidism; W88.1XXA Exposure to radioactive isotopes, initial encounter; E78.00 Pure hypercholesterolemia, unspecified; I10 Essential (primary) hypertension; I73.00 Raynaud's syndrome without gangrene; J44.9 Chronic obstructive pulmonary disease, unspecified; F41.9 Anxiety disorder, unspecified; H26.9 Unspecified cataract; F32.9 Major depressive disorder, single episode, unspecified; I25.10 Atherosclerotic heart disease of native coronary artery without angina pectoris; D69.6 Thrombocytopenia, unspecified; R58 Hemorrhage, not elsewhere classified; W19.XXXA Unspecified fall, initial encounter; Z79.899 Other long term (current) drug therapy; Z88.8 Allergy status to other drugs, medicaments and biological substances; Z88.1 Allergy status to other antibiotic agents; Y92.9 Unspecified place or not applicable; Z85.810 Personal history of malignant neoplasm of tongue; Z72.89 Other problems related to lifestyle; Z87.891 Personal history of nicotine dependence; I25.2 Old myocardial infarction; Z82.49 Family history of ischemic heart disease and other diseases of the circulatory system; Z83.6 Family history of other diseases of the respiratory system; Z85.819 Personal history of malignant neoplasm of unspecified site of lip, oral cavity, and pharynx; Z79.82 Long term (current) use of aspirin; Z79.52 Long term (current) use of systemic steroids; D64.9 Anemia, unspecified; Z99.81 Dependence on supplemental oxygen
CPT/HCPCS: 36415; 71045; 72190; 76001; 80048; 80053; 80076; 81003; 81015; 82140; 82306; 82533; 82570; 83930; 83935; 84300; 84443; 84484; 85014; 85018; 85025; 85027; 85049; 85610; 85730; 86850; 86900; 86901; 86922; 87077; 87086; 87186; 88305; 88311; 93005; 94640; 99284; A9270-GY; C1713; C1776; G8978-GP-CL; G8979-GP-CI; G8987-GO-CL; G8987-GO-CM; G8988-GO-CI; G8988-GO-CJ; J0690; J1100; J1170; J1200; J1630; J1644; J1650; J1885; J2060; J2185; J2250; J2270; J2405; J2543; J2704; J2795; J3010; J3360; J3490; J8540; P9040

== ENCOUNTER 2017-12-04 08:41 | Inpatient (IN) | payer MEDICARE ==
[2017-12-04] MEDS ORDERED: Acetaminophen TAB* 325 MG PO PRN (11:07)
[2017-12-04] MEDS ORDERED: Bisacodyl SUPP* 10 MG SUPP PR PRN (11:07)
[2017-12-04] MEDS ORDERED: Magnesium Hydroxide LIQ* 30 ML UDC PO PRN (11:07)
[2017-12-04] MEDS ORDERED: Diazepam TAB(*) 5 MG PO PRN (11:24)
[2017-12-04] MEDS ORDERED: oxyCODONE/Acetamin 5/325 MG* TAB PO PRN (11:25)
--- NOTE | 2017-12-04 12:37 | PMRUTEAM ---
PMRU: Team Meeting Current Status: Nursing: Current Status Skin Deviations [Right Forearm Skin Tear ] Skin Deviations [Left Hoskins] Skin Tear Skin Deviations [Right Hoskins] Bruise Skin Deviations [Bilateral Other Heel] Skin Deviations [Left Arm] Skin Tear Skin Deviations [Right Hip] Incision Skin Deviations [Right Elbow] Skin Tear Skin Deviations [Right Arm] Bruise Skin Deviations [Right Upper Incision Arm] Skin Deviation Description [ mepelex Right Forearm] Skin Deviation Description [ mepelex Left Hoskins] Skin Deviation Description [ reddened but blanchable Bilateral Heel] Skin Deviation Description [ mepelex Left Arm] Skin Deviation Description [ sutures Right Elbow] Skin Deviation Description [ from shoulder to wrist Right Arm] Physical Therapy: Current Status Bed Mobility Assistance Mod Assist Transfer Moblility Assistance Mod Assist,2 or More Person Assist Ambulation Assistance Max ASSIST 4 steps Ambulation Assistive Devices Straight Cane Stairs Assistance NT Stairs Recommended Devices Two Rails Number of Stairs 13 Rec Therapy: Current Status Summary of Assessment and RT assessment complete and pt. is aware of RT Clinical Impression services. Pt. has leisure material in her room and is open to continued leisure visits. OCCUPATIONAL THERAPY: MAX ASSIST UB DRESSING TOTAL ASSIST LOWER BODY DRESSING, MAX ASSSIT TOILETING, 2 ASSIST TOILET TRANSFER MIN ASSIST GROOMING, SETUP FEEDING Goals: PHYSICAL THERAPY: Independent transfers, Ambulation 150 feet with lupe walker with supervision OCCUPATIONAL THERAPY: Supervision Toileting and transfers, Min Assist UB Dressing, Mod assist LB dressing NURSING: Will need dressing changes Medicine Note: Length of Stay: 16 days Anticipated Discharge Destination: Tentative Discharge Date: November Discharged to: Home
[2017-12-04] MEDS ORDERED: Meropenem 1 GM PREMIX(*) 1 GM/50 ML BAG IV SCH (13:00)
[2017-12-04] MEDS: Enoxaparin(*) 30 MG/0.3 ML SYR SUBCUT SCH (13:55)
[2017-12-04] MEDS: oxyCODONE/Acetamin 5/325 MG* TAB PO PRN ×2 (16:28→20:46)
[2017-12-04] MEDS: Metoprolol Tartrate TAB* 50 mg PO SCH (20:06)
[2017-12-04] MEDS: Senna TAB PO SCH (20:10)
[2017-12-04] MEDS: Docusate CAP* 100 MG PO SCH (20:10)
--- NOTE | 2017-12-04 21:57 | HP ---
HISTORY AND PHYSICAL: DATE OF ADMISSION: 12/04/17. REASON FOR ADMISSION: Right hip fracture; right humerus fracture. HISTORY OF PRESENT ILLNESS: Trina Cabello is a 72-year-old white female. She has a medical history significant for COPD and wears oxygen at home. She was on the rehab unit in April of 2017 after she had a left hip fracture. She recovered from this fairly well. She did have bronchitis and was treated with Zithromax, and she was later treated with IV cefepime after her sputum grew out pseudomonas. The patient seemed to do well at home after discharge. She and her were at [employer] looking at . She was walking back to her car on November 24. She tripped on some gravel and fell on her right side. She was helped up. 911 was called and she was brought to the hospital because she was in a significant amount of pain. She was x-rayed in the emergency room and was found to have a right humerus fracture and a right hip fracture. She was admitted to [facility] on 11/24/17. She was taken to the operating room on 11/25/[address] Castillo, and she underwent a right hip hemiarthroplasty. After her hip surgery, she became quite confused overnight. It was unclear if she was having alcohol withdrawal. They put her on the [facility] protocol. She was also treated for urinary tract infection with piperacillin. Her urine later grew out pseudomonas and her antibiotics were switched to meropenem. The patient slowly cleared. She was taken back to the operating room on 12/01/17. She underwent an open reduction and internal fixation of her right proximal humerus fracture. She slowly cleared with her mentation. The patient was felt to have physical and occupational therapy needs. She is now being admitted for inpatient rehab, so she might return to independent living. PAST MEDICAL HISTORY: Significant for the aforementioned COPD which is oxygen dependent. She has a history of coronary artery disease and had a myocardial infarct in 1995. She has hypertension, hyperlipidemia, hypothyroidism. She has a history of mouth cancer as well. She also has a history of osteoporosis. ALLERGIES: The patient has allergies listed to LAMICTAL, LEVAQUIN, ZONISAMIDE, CIPRO, and BUPROPION. SOCIAL HISTORY: She is a former smoker. She does have several glasses of wine a day. She lives with her in a ranch-style house with no steps to enter. REVIEW OF SYSTEMS: Patient reports no current shortness of breath or chest pain. PHYSICAL EXAMINATION VITAL SIGNS: Patient's temperature is 99, blood pressure is 148/71, pulse 79, respirations 22. HEENT: Her extraocular movements are intact. LUNGS: There was decreased air movement bilaterally. HEART: Heart sounds are regular, S1, S2 audible. ABDOMEN: Soft and nontender. EXTREMITIES: Her right upper extremity is extensively ecchymotic. Her right lower extremity has a wound, which is clean and dry. NEUROLOGIC: The patient is awake, alert, oriented. Muscle strength is 5/5 on the left side. Right upper extremity is limited because of her recent shoulder surgery. Hand seniour insight manager appears to be 5/5 and her right leg is about 3-4+/5 secondary to pain. Her functional exam, she transfers with mod assist of 2. ASSESSMENT: Right femur fracture, status post hemiarthroplasty of the same right proximal humerus fracture, status post ORIF. PLAN: Our plan is to integrate her into a comprehensive and therapeutic rehab program with the following goals: 1. Physical Therapy will work with the patient. They are going to work on functional transfer training, ambulation training. 2. Occupational Therapy will see the patient, work on her activities of daily living including toileting and toilet transfers. 3. Lovenox for DVT prophylaxis. 4. Adequate analgesia. 5. For her COPD, we are going to continue her on Symbicort as well as her Combivent rescue inhaler. 6. For her coronary artery disease, we will continue her on aspirin and Lopressor as well as Lipitor. 7. For hypothyroidism, continue Synthroid. 8. For her urinary tract infection, we are going to continue meropenem. Unfortunately, the patient's IV was discontinued prior to her getting here. She is a hard person to get a vascular access on. We will see if this can be done. 9. Her bowels were regulated. 10. conference services coordinator will be closely involved to make sure that any services and equipment the patient requires are in place prior to discharge. 11. Home with appropriate services. ESTIMATED LENGTH OF STAY: 17 days. [id number]/[facility] #: [id number] [facility] HOSPITALFang
[2017-12-05] MEDS: oxyCODONE/Acetamin 5/325 MG* TAB PO PRN ×6 (00:57→22:58)
[2017-12-05] MEDS: Levothyroxine TAB* 50 MCG TAB PO SCH (05:15)
[2017-12-05] MEDS: Albuterol/Ipratropium RESP(NF) MDI (Combivent Respimat) INH PRN (05:18)
[2017-12-05 06:46] LABS: ABS Basophils 0 10^3/ul (0-0.2); ABS Eosinophils 0.1 10^3/ul (0-0.6); ABS Lymphocytes 0.4 10^3/ul (1.0-4.8); ABS Monocytes 0.5 10^3/ul (0-0.8); ABS Neutrophils 5.9 10^3/ul (1.5-7.7); ABS Nucleated RBC 0 10^3/ul; Hematocrit 28 % (35-47); Hemoglobin 9.7 g/dl (12.0-16.0); Lymphocyte % 5.4 % (25-47); Mean Corpuscular HGB Conc 35 g/dl (31-36); Mean Corpuscular Hemoglobin 34 pg (27-31); Mean Corpuscular Volume 97 fL (80-97); Mean Platelet Volume 6.2 um3 (7.4-10.4); Nucleated Red Blood Cells % 0; Platelet Count 288 10^3/ul (150-450); Red Blood Count 2.91 10^6/ul (4.0-5.4); Red Cell Distribution Width 20 % (10.5-15); White Blood Count 6.9 10^3/ul (3.5-10.8)
[2017-12-05 07:02] LABS: EGFR Non-African American 172.7 (>60)
[2017-12-05] MEDS: Sertraline* 50 MG TAB PO SCH (07:44)
[2017-12-05] MEDS: Aspirin 81 mg CHEW TAB* 81 MG TAB.CHEW PO SCH (07:44)
[2017-12-05] MEDS: Valsartan TAB* 40 MG PO SCH (07:44)
[2017-12-05] MEDS: Folic Acid TAB* 1 MG PO SCH (07:44)
[2017-12-05] MEDS: ALPRAZolam TAB* 0.5 MG PO SCH (07:44)
[2017-12-05] MEDS: Metoprolol Tartrate TAB* 50 mg PO SCH ×2 (07:44→20:08)
[2017-12-05] MEDS: Docusate CAP* 100 MG PO SCH ×2 (07:45→20:24)
[2017-12-05] MEDS: PTO - Budesonide/Formote 160/4.5(NF) MDI INH SCH ×3 (14:16→20:15)
[2017-12-05] MEDS: Enoxaparin(*) 30 MG/0.3 ML SYR SUBCUT SCH (14:18)
[2017-12-05] MEDS: Atorvastatin* 10 MG TAB PO SCH (17:16)
--- NOTE | 2017-12-05 19:33 | PN ---
Progress Note Date of Service: 12/05/17 Note: RADHA KEEN was visited. Therapy notes read and reviewed. She says she has been getting her Symbicort regularly from RT. She also notes edema in her thigh and buttock. This happened on her last admission and this responded to Dyazide. Will order Current Medications: Active Medications Generic Name Dose Route Start Last Admin Trade Name Freq PRN Reason Stop Dose Admin Acetaminophen 650 mg 12/04/17 11:07 Tylenol Tab* PO Q6H PRN FEVER/PAIN Albuterol/Ipratropium 2 puff 12/04/17 11:19 12/05/17 05:18 Combivent Respimat(Nf) INH 2 puff Q6H PRN Administration SOB/WHEEZING Protocol Alprazolam 0.5 mg 12/05/17 09:00 12/05/17 07:44 Xanax Tab* PO 0.5 mg DAILY QI Administration Alprazolam 0.5 mg 12/04/17 16:43 Xanax Tab* PO Q8H PRN ANXIETY Aspirin 81 mg 12/05/17 09:00 12/05/17 07:44 Aspirin 81 Mg Chew Tab* PO 81 mg DAILY QI Administration Atorvastatin Calcium 10 mg 12/05/17 17:00 12/05/17 17:16 Lipitor* PO 10 mg 1700 QI Administration Bisacodyl 10 mg 12/04/17 11:07 Dulcolax Supp* LA DAILY PRN CONSTIPATION Budesonide/Formoterol Fumarate 2 puff 12/05/17 21:00 Symbicort 160/4.5 (Nf) INH BID [facility] Protocol Docusate Sodium 100 mg 12/04/17 21:00 12/05/17 07:45 Colace Cap* PO Not Given BID [facility] Enoxaparin Sodium 30 mg 12/04/17 13:00 12/05/17 14:18 Lovenox(*) SUBCUT 30 mg Q24H QI Administration Folic Acid 1 mg 12/05/17 09:00 12/05/17 07:44 Folvite Tab* PO 1 mg DAILY QI Administration Levothyroxine Sodium 50 mcg 12/05/17 06:00 12/05/17 05:15 Synthroid Tab* PO 50 mcg DAILY@0600 QI Administration Magnesium Hydroxide 30 ml 12/04/17 11:07 Milk Of Magnesia Liq* PO Q6H PRN CONSTIPATION Metoprolol Tartrate 50 mg 12/04/17 21:00 12/05/17 07:44 Lopressor Tab* PO 50 mg Q12HR QI Administration Oxycodone/Acetaminophen 1 tab 12/04/17 11:24 12/05/17 18:16 Percocet 5/325 Tab* PO 1 tab Q4H PRN Administration PAIN - MODERATE TO SEVERE Oxycodone/Acetaminophen 2 tab 12/04/17 11:25 Percocet 5/325 Tab* PO Q4H PRN PAIN - SEVERE Senna 2 tab 12/04/17 21:00 12/04/17 20:10 Senokot Tab* PO Not Given BEDTIME QI Sertraline HCl 50 mg 12/05/17 09:00 12/05/17 07:44 Zoloft* PO 50 mg DAILY QI Administration Triamterene/HCTZ 1 cap 12/06/17 09:00 Dyazide Cap* PO DAILY QI Valsartan 40 mg 12/05/17 09:00 12/05/17 07:44 Diovan Tab* PO 40 mg DAILY QI Administration Vital Signs: Vital Signs Temp Pulse Resp BP Pulse Ox 98.4 F 78 18 110/56 100 12/05/17 15:04 12/05/17 15:04 12/05/17 18:16 12/05/17 15:04 12/05/17 16:05 Lab Results: Laboratory Results - last 24 hr 12/05/17 12/05/17 06:40 06:40 WBC 6.9 RBC 2.91 L Hgb 9.7 L Hct 28 L MCV 97 MCH 34 H MCHC 35 RDW 20 H Plt Count 288 MPV 6.2 L Neut % (Auto) 85.4 H Lymph % (Auto) 5.4 L [place] % (Auto) 6.6 Eos % (Auto) 2.0 Baso % (Auto) 0.6 Absolute Neuts (auto) 5.9 Absolute Lymphs (auto) 0.4 L Absolute Monos (auto) 0.5 Absolute Eos (auto) 0.1 Absolute Basos (auto) 0 Absolute Nucleated RBC 0 Nucleated RBC % 0 Sodium 133 L Potassium 3.6 Chloride 95 L Carbon Dioxide 38 H BUN 8 Creatinine 0.37 L Est GFR ( Amer) 222.0 Est GFR (Non-Af Amer) 172.7 BUN/Creatinine Ratio 21.6 H Glucose 85 Calcium 7.7 L Total Bilirubin 0.80 AST 30 ALT 17 Alkaline Phosphatase 80 Total Protein 4.6 L Albumin 2.3 L Globulin 2.3 Albumin/Globulin Ratio 1.0 Exam: LUNGS: decreased air entry HEART: reg rhythm ABDOMEN: Soft EXTREMITIES: Multiple skin tears on upper extremities. Ecchymotic RUE NEUROLOGIC: Alert. Strength intact Assessment/Plan: 1. Right humerus fracture: NWB RUE. Per ortho, May do pendulum exercises and PROM, but no AROM. PT/OT 2. Right femur fracture: S/P HAP. PT/OT. WBAT RLE 3. COPD: Symbicort/Combivent. Oxygen via NC 4. Edema: Start Dyazide. 5. DVT Prophylaxis: Lovenox 6. Anxiety: Xanax 7. HTN: Lopressor/Diovan 8. Advanced Directives: Full Code 9. Skin tears: Local dressing changes 12/05/17 19:34
[2017-12-05] MEDS: Senna TAB PO SCH (20:24)
[2017-12-06] MEDS: Levothyroxine TAB* 50 MCG TAB PO SCH (04:03)
[2017-12-06] MEDS: oxyCODONE/Acetamin 5/325 MG* TAB PO PRN ×4 (04:03→20:56)
[2017-12-06] MEDS: Albuterol/Ipratropium RESP(NF) MDI (Combivent Respimat) INH PRN ×2 (04:05→09:31)
[2017-12-06] MEDS: Folic Acid TAB* 1 MG PO SCH (08:12)
[2017-12-06] MEDS: ALPRAZolam TAB* 0.5 MG PO SCH (08:12)
[2017-12-06] MEDS: Aspirin 81 mg CHEW TAB* 81 MG TAB.CHEW PO SCH (08:12)
[2017-12-06] MEDS: Metoprolol Tartrate TAB* 50 mg PO SCH ×2 (08:12→21:01)
[2017-12-06] MEDS: Sertraline* 50 MG TAB PO SCH (08:13)
[2017-12-06] MEDS: Triamterene/HCTZ 37.5-25 MG* CAP PO SCH (08:13)
[2017-12-06] MEDS: Valsartan TAB* 40 MG PO SCH (08:13)
[2017-12-06] MEDS: Docusate CAP* 100 MG PO SCH ×2 (08:20→21:01)
[2017-12-06] MEDS: PTO - Budesonide/Formote 160/4.5(NF) MDI INH SCH ×2 (09:31→21:31)
[2017-12-06] MEDS: Enoxaparin(*) 30 MG/0.3 ML SYR SUBCUT SCH (12:52)
[2017-12-06] MEDS: Atorvastatin* 10 MG TAB PO SCH (20:55)
[2017-12-06] MEDS: Senna TAB PO SCH (21:01)
--- NOTE | 2017-12-06 21:47 | PN ---
Progress Note Date of Service: 12/06/17 Note: RADHA KEEN was visited. Therapy notes read and reviewed. She is back on Dyazide. Legs edematous. Breathing shallow but she feels ok. Working on moving with therapy. Has Isotoner rush for right hand Current Medications: Active Medications Generic Name Dose Route Start Last Admin Trade Name Freq PRN Reason Stop Dose Admin Acetaminophen 650 mg 12/04/17 11:07 Tylenol Tab* PO Q6H PRN FEVER/PAIN Albuterol/Ipratropium 2 puff 12/04/17 11:19 12/06/17 09:31 Combivent Respimat(Nf) INH 2 puff Q6H PRN Administration SOB/WHEEZING Protocol Alprazolam 0.5 mg 12/05/17 09:00 12/06/17 08:12 Xanax Tab* PO 0.5 mg DAILY QI Administration Alprazolam 0.5 mg 12/04/17 16:43 Xanax Tab* PO Q8H PRN ANXIETY Aspirin 81 mg 12/05/17 09:00 12/06/17 08:12 Aspirin 81 Mg Chew Tab* PO 81 mg DAILY QI Administration Atorvastatin Calcium 10 mg 12/05/17 17:00 12/06/17 20:55 Lipitor* PO 10 mg 1700 QI Administration Bisacodyl 10 mg 12/04/17 11:07 Dulcolax Supp* [place] DAILY PRN CONSTIPATION Budesonide/Formoterol Fumarate 2 puff 12/05/17 21:00 12/06/17 21:31 Symbicort 160/4.5 (Nf) INH Not Given BID [facility] Protocol Docusate Sodium 100 mg 12/04/17 21:00 12/06/17 21:01 Colace Cap* PO Not Given BID [facility] Enoxaparin Sodium 30 mg 12/04/17 13:00 12/06/17 12:52 Lovenox(*) SUBCUT 30 mg Q24H QI Administration Folic Acid 1 mg 12/05/17 09:00 12/06/17 08:12 Folvite Tab* PO 1 mg DAILY QI Administration Levothyroxine Sodium 50 mcg 12/05/17 06:00 12/06/17 04:03 Synthroid Tab* PO 50 mcg DAILY@0600 [facility] Administration Magnesium Hydroxide 30 ml 12/04/17 11:07 Milk Of Magnesia Liq* PO Q6H PRN CONSTIPATION Metoprolol Tartrate 50 mg 12/04/17 21:00 12/06/17 21:01 Lopressor Tab* PO 50 mg Q12HR QI Administration Oxycodone/Acetaminophen 1 tab 12/04/17 11:24 12/06/17 20:56 Percocet 5/325 Tab* PO 1 tab Q4H PRN Administration PAIN - MODERATE TO SEVERE Oxycodone/Acetaminophen 2 tab 12/04/17 11:25 Percocet 5/325 Tab* PO Q4H PRN PAIN - SEVERE Senna 2 tab 12/04/17 21:00 12/06/17 21:01 Senokot Tab* PO Not Given BEDTIME QI Sertraline HCl 50 mg 12/05/17 09:00 12/06/17 08:13 Zoloft* PO 50 mg DAILY QI Administration Triamterene/HCTZ 1 cap 12/06/17 09:00 12/06/17 08:13 Dyazide Cap* PO 1 cap DAILY QI Administration Valsartan 40 mg 12/05/17 09:00 12/06/17 08:13 Diovan Tab* PO 40 mg DAILY QI Administration Vital Signs: Vital Signs Temp Pulse Resp BP Pulse Ox 99.5 F 74 18 120/48 100 12/06/17 15:52 12/06/17 15:52 12/06/17 20:57 12/06/17 15:52 12/06/17 15:52 Exam: LUNGS: decreased air entry HEART: reg rhythm ABDOMEN: Soft EXTREMITIES: Multiple skin tears on upper extremities. Ecchymotic RUE NEUROLOGIC: Alert. Strength intact Assessment/Plan: 1. Right humerus fracture: NWB RUE. Per ortho, May do pendulum exercises and PROM, but no AROM. PT/OT 2. Right femur fracture: S/P HAP. PT/OT. WBAT RLE 3. COPD: Symbicort/Combivent. Oxygen via [place] 4. Edema: Started Dyazide. 5. DVT Prophylaxis: Lovenox 6. Anxiety: Xanax 7. HTN: Lopressor/Diovan 8. Advanced Directives: Full Code 9. Skin tears: Local dressing changes 12/06/17 21:48
[2017-12-07] MEDS: oxyCODONE/Acetamin 5/325 MG* TAB PO PRN ×5 (01:10→23:58)
[2017-12-07] MEDS: Levothyroxine TAB* 50 MCG TAB PO SCH (05:20)
[2017-12-07] MEDS: PTO - Budesonide/Formote 160/4.5(NF) MDI INH SCH ×2 (08:09→20:59)
[2017-12-07] MEDS: Sertraline* 50 MG TAB PO SCH (10:01)
[2017-12-07] MEDS: Metoprolol Tartrate TAB* 50 mg PO SCH ×2 (10:01→20:57)
[2017-12-07] MEDS: Valsartan TAB* 40 MG PO SCH (10:01)
[2017-12-07] MEDS: ALPRAZolam TAB* 0.5 MG PO SCH (10:01)
[2017-12-07] MEDS: Triamterene/HCTZ 37.5-25 MG* CAP PO SCH (10:01)
[2017-12-07] MEDS: Docusate CAP* 100 MG PO SCH ×2 (10:01→20:58)
[2017-12-07] MEDS: Aspirin 81 mg CHEW TAB* 81 MG TAB.CHEW PO SCH (10:01)
[2017-12-07] MEDS: Folic Acid TAB* 1 MG PO SCH (10:02)
[2017-12-07] MEDS ORDERED: Azithromycin TAB* 250 MG PO ONE (13:49)
[2017-12-07] MEDS: Enoxaparin(*) 30 MG/0.3 ML SYR SUBCUT SCH (16:05)
--- NOTE | 2017-12-07 16:39 | PN ---
Progress Note Date of Service: 12/07/17 Note: RADHA KEEN was visited. Therapy notes read and reviewed. She reports some increased phlegm production today and it is green. She can easily slip into bronchitis or pneumonia. Will start Zithromax and get a sputum culture Current Medications: Active Medications Generic Name Dose Route Start Last Admin Trade Name Freq PRN Reason Stop Dose Admin Acetaminophen 650 mg 12/04/17 11:07 Tylenol Tab* PO Q6H PRN FEVER/PAIN Albuterol/Ipratropium 2 puff 12/04/17 11:19 12/06/17 09:31 Combivent Respimat(Nf) INH 2 puff Q6H PRN Administration SOB/WHEEZING Protocol Alprazolam 0.5 mg 12/05/17 09:00 12/07/17 10:01 Xanax Tab* PO 0.5 mg DAILY QI Administration Alprazolam 0.5 mg 12/04/17 16:43 Xanax Tab* PO Q8H PRN ANXIETY Aspirin 81 mg 12/05/17 09:00 12/07/17 10:01 Aspirin 81 Mg Chew Tab* PO 81 mg DAILY QI Administration Atorvastatin Calcium 10 mg 12/05/17 17:00 12/06/17 20:55 Lipitor* PO 10 mg 1700 QI Administration Azithromycin 250 mg 12/08/17 09:00 Zithromax Tab* PO 12/12/17 23:59 DAILY QI Bisacodyl 10 mg 12/04/17 11:07 Dulcolax Supp* [place] DAILY PRN CONSTIPATION Budesonide/Formoterol Fumarate 2 puff 12/05/17 21:00 12/07/17 08:09 Symbicort 160/4.5 (Nf) INH 2 puff BID QI Administration Protocol Docusate Sodium 100 mg 12/04/17 21:00 12/07/17 10:01 Colace Cap* PO 100 mg BID QI Administration Enoxaparin Sodium 30 mg 12/04/17 13:00 12/07/17 16:05 Lovenox(*) SUBCUT 30 mg Q24H QI Administration Folic Acid 1 mg 12/05/17 09:00 12/07/17 10:02 Folvite Tab* PO 1 mg DAILY QI Administration Levothyroxine Sodium 50 mcg 12/05/17 06:00 12/07/17 05:20 Synthroid Tab* PO 50 mcg DAILY@0600 QI Administration Magnesium Hydroxide 30 ml 12/04/17 11:07 Milk Of Magnesia Liq* PO Q6H PRN CONSTIPATION Metoprolol Tartrate 50 mg 12/04/17 21:00 12/07/17 10:01 Lopressor Tab* PO 50 mg Q12HR QI Administration Oxycodone/Acetaminophen 1 tab 12/04/17 11:24 12/07/17 07:35 Percocet 5/325 Tab* PO 1 tab Q4H PRN Administration PAIN - MODERATE TO SEVERE Oxycodone/Acetaminophen 2 tab 12/04/17 11:25 Percocet 5/325 Tab* PO Q4H PRN PAIN - SEVERE Senna 2 tab 12/04/17 21:00 12/06/17 21:01 Senokot Tab* PO Not Given BEDTIME QI Sertraline HCl 50 mg 12/05/17 09:00 12/07/17 10:01 Zoloft* PO 50 mg DAILY IQ Administration Triamterene/HCTZ 1 cap 12/06/17 09:00 12/07/17 10:01 Dyazide Cap* PO 1 cap DAILY QI Administration Valsartan 40 mg 12/05/17 09:00 12/07/17 10:01 Diovan Tab* PO 40 mg DAILY QI Administration Vital Signs: Vital Signs Temp Pulse Resp BP Pulse Ox 97.9 F 75 18 140/68 100 12/07/17 16:14 12/07/17 16:14 12/07/17 16:14 12/07/17 16:14 12/07/17 16:14 Exam: LUNGS: decreased air entry HEART: reg rhythm ABDOMEN: Soft EXTREMITIES: Multiple skin tears on upper extremities and LLE. Ecchymotic RUE NEUROLOGIC: Alert. Strength intact Assessment/Plan: 1. Right humerus fracture: NWB RUE. Per ortho, May do pendulum exercises and PROM, but no AROM. PT/OT 2. Right femur fracture: S/P HAP. PT/OT. WBAT RLE 3. COPD: Symbicort/Combivent. Oxygen via [place] 4. Edema: Started Dyazide. 5. DVT Prophylaxis: Lovenox 6. Anxiety: Xanax 7. HTN: Lopressor/Diovan 8. Advanced Directives: Full Code 9. Skin tears: Local dressing changes 10. Bronchitis: Start Zithromax. Sputum culture 12/07/17 16:40
[2017-12-07] MEDS: Atorvastatin* 10 MG TAB PO SCH (17:00)
[2017-12-07] MEDS: Senna TAB PO SCH (20:55)
[2017-12-08] MEDS: oxyCODONE/Acetamin 5/325 MG* TAB PO PRN ×4 (05:24→20:21)
[2017-12-08] MEDS: Levothyroxine TAB* 50 MCG TAB PO SCH (05:33)
[2017-12-08] MEDS: PTO - Budesonide/Formote 160/4.5(NF) MDI INH SCH ×2 (08:33→19:48)
[2017-12-08] MEDS: Folic Acid TAB* 1 MG PO SCH (09:36)
[2017-12-08] MEDS: Aspirin 81 mg CHEW TAB* 81 MG TAB.CHEW PO SCH (09:36)
[2017-12-08] MEDS: Sertraline* 50 MG TAB PO SCH (09:36)
[2017-12-08] MEDS: ALPRAZolam TAB* 0.5 MG PO SCH (09:36)
[2017-12-08] MEDS: Triamterene/HCTZ 37.5-25 MG* CAP PO SCH (09:37)
[2017-12-08] MEDS: Metoprolol Tartrate TAB* 50 mg PO SCH ×2 (09:37→20:21)
[2017-12-08] MEDS: Azithromycin TAB* 250 MG PO SCH (09:37)
[2017-12-08] MEDS: Valsartan TAB* 40 MG PO SCH (09:37)
[2017-12-08] MEDS: Docusate CAP* 100 MG PO SCH ×2 (09:38→20:21)
--- NOTE | 2017-12-08 10:29 | PN ---
Progress Note Date of Service: 12/08/17 Note: RADHA KEEN was visited. Nursing and therapy notes read and reviewed. Still with yellow sputum in the morning. No chest pain, change in dyspnea on exertion or abdominal pain. Able this morning to walk from room to gym CGA with hemiwalker. No right hip pain. Pain is primarily in her arm. Her legs are less swollen today. Current Medications: Active Medications Generic Name Dose Route Start Last Admin Trade Name Freq PRN Reason Stop Dose Admin Acetaminophen 650 mg 12/04/17 11:07 Tylenol Tab* PO Q6H PRN FEVER/PAIN Albuterol/Ipratropium 2 puff 12/04/17 11:19 12/06/17 09:31 Combivent Respimat(Nf) INH 2 puff Q6H PRN Administration SOB/WHEEZING Protocol Alprazolam 0.5 mg 12/05/17 09:00 12/08/17 09:36 Xanax Tab* PO 0.5 mg DAILY QI Administration Alprazolam 0.5 mg 12/04/17 16:43 Xanax Tab* PO Q8H PRN ANXIETY Aspirin 81 mg 12/05/17 09:00 12/08/17 09:36 Aspirin 81 Mg Chew Tab* PO 81 mg DAILY QI Administration Atorvastatin Calcium 10 mg 12/05/17 17:00 12/07/17 17:00 Lipitor* PO 10 mg 1700 QI Administration Azithromycin 250 mg 12/08/17 09:00 12/08/17 09:37 Zithromax Tab* PO 12/12/17 23:59 250 mg DAILY QI Administration Bisacodyl 10 mg 12/04/17 11:07 Dulcolax Supp* [place] DAILY PRN CONSTIPATION Budesonide/Formoterol Fumarate 2 puff 12/05/17 21:00 12/08/17 08:33 Symbicort 160/4.5 (Nf) INH 2 puff BID QI Administration Protocol Docusate Sodium 100 mg 12/04/17 21:00 12/08/17 09:38 Colace Cap* PO 100 mg BID QI Administration Enoxaparin Sodium 30 mg 12/04/17 13:00 12/07/17 16:05 Lovenox(*) SUBCUT 30 mg Q24H QI Administration Folic Acid 1 mg 12/05/17 09:00 05/12/18 09:36 Folvite Tab* PO 1 mg DAILY QI Administration Levothyroxine Sodium 50 mcg 12/05/17 06:00 12/08/17 05:33 Synthroid Tab* PO 50 mcg DAILY@0600 QI Administration Magnesium Hydroxide 30 ml 12/04/17 11:07 Milk Of Magnesia Liq* PO Q6H PRN CONSTIPATION Metoprolol Tartrate 50 mg 12/04/17 21:00 12/08/17 09:37 Lopressor Tab* PO 50 mg Q12HR QI Administration Oxycodone/Acetaminophen 1 tab 12/04/17 11:24 12/08/17 05:24 Percocet 5/325 Tab* PO 1 tab Q4H PRN Administration PAIN - MODERATE TO SEVERE Oxycodone/Acetaminophen 2 tab 12/04/17 11:25 Percocet 5/325 Tab* PO Q4H PRN PAIN - SEVERE Senna 2 tab 12/04/17 21:00 12/07/17 20:55 Senokot Tab* PO 2 tab BEDTIME QI Administration Sertraline HCl 50 mg 12/05/17 09:00 12/08/17 09:36 Zoloft* PO 50 mg DAILY QI Administration Triamterene/HCTZ 1 cap 12/06/17 09:00 12/08/17 09:37 Dyazide Cap* PO 1 cap DAILY QI Administration Valsartan 40 mg 12/05/17 09:00 12/08/17 09:37 Diovan Tab* PO 40 mg DAILY QI Administration Vital Signs: Vital Signs Temp Pulse Resp BP Pulse Ox 97.9 F 70 18 144/62 96 12/08/17 05:28 12/08/17 08:35 12/08/17 10:16 12/08/17 05:28 12/08/17 08:35 Lab Results: Microbiology 12/08/17 05:30 Sputum Expectorated Gram Stain - with neutrophils, diplococci , bacilli and yeast. Pending culture. Exam: GEN: No acute distress. Alert and appropriate. LUNGS: decreased breath sounds and movement consistent with COPD HEART: regular rate and rhythm ABDOMEN: Soft, + bowel sounds, non-tender, non-distended EXTREMITIES: Multiple skin tears on upper extremities and LLE. Ecchymotic RUE. Bilateral LE edema. Assessment/Plan: 72yo woman s/p right humerus and femur fractures with longstanding COPD 1. Right humerus fracture: NWB RUE. Per ortho, May do pendulum exercises and PROM, but no AROM. PT/OT 2. Right femur fracture: S/P HAP. PT/OT. WBAT RLE 3. COPD: Symbicort/Combivent. Oxygen via [place] 4. Edema: On Dyazide. 5. DVT Prophylaxis: Lovenox 6. Anxiety: Xanax 7. HTN: Lopressor/Diovan 8. Advanced Directives: Full Code 9. Skin tears: Local dressing changes 10. Bronchitis: Zithromax day #2. Pending sputum culture 12/08/17 10:30
[2017-12-08] MEDS: Enoxaparin(*) 30 MG/0.3 ML SYR SUBCUT SCH (14:46)
[2017-12-08] MEDS: Atorvastatin* 10 MG TAB PO SCH (16:54)
[2017-12-08] MEDS: Senna TAB PO SCH (20:21)
[2017-12-09] MEDS: oxyCODONE/Acetamin 5/325 MG* TAB PO PRN ×5 (00:44→20:07)
[2017-12-09] MEDS: Albuterol/Ipratropium RESP(NF) MDI (Combivent Respimat) INH PRN (00:52)
[2017-12-09] MEDS: Levothyroxine TAB* 50 MCG TAB PO SCH (06:45)
--- NOTE | 2017-12-09 08:32 | PN ---
Progress Note Date of Service: 12/09/17 Note: RADHA KEEN was visited. Nursing and therapy notes read and reviewed. No new symptoms overnight. Has not had much sputum this morning. No new chest pain, shortness of breath or abdominal pain. Current Medications: Active Medications Generic Name Dose Route Start Last Admin Trade Name Freq PRN Reason Stop Dose Admin Acetaminophen 650 mg 12/04/17 11:07 Tylenol Tab* PO Q6H PRN FEVER/PAIN Albuterol/Ipratropium 2 puff 12/04/17 11:19 12/09/17 00:52 Combivent Respimat(Nf) INH 2 puff Q6H PRN Administration SOB/WHEEZING Protocol Alprazolam 0.5 mg 12/05/17 09:00 12/08/17 09:36 Xanax Tab* PO 0.5 mg DAILY QI Administration Alprazolam 0.5 mg 12/04/17 16:43 Xanax Tab* PO Q8H PRN ANXIETY Aspirin 81 mg 12/05/17 09:00 12/08/17 09:36 Aspirin 81 Mg Chew Tab* PO 81 mg DAILY QI Administration Atorvastatin Calcium 10 mg 12/05/17 17:00 12/08/17 16:54 Lipitor* PO 10 mg 1700 QI Administration Azithromycin 250 mg 12/08/17 09:00 12/08/17 09:37 Zithromax Tab* PO 12/12/17 23:59 250 mg DAILY QI Administration Bisacodyl 10 mg 12/04/17 11:07 Dulcolax Supp* [place] DAILY PRN CONSTIPATION Budesonide/Formoterol Fumarate 2 puff 12/05/17 21:00 12/08/17 19:48 Symbicort 160/4.5 (Nf) INH 2 puff BID QI Administration Protocol Docusate Sodium 100 mg 12/04/17 21:00 12/08/17 20:21 Colace Cap* PO 100 mg BID QI Administration Enoxaparin Sodium 30 mg 12/04/17 13:00 12/08/17 14:46 Lovenox(*) SUBCUT 30 mg Q24H QI Administration Folic Acid 1 mg 12/05/17 09:00 12/08/17 09:36 Folvite Tab* PO 1 mg DAILY QI Administration Levothyroxine Sodium 50 mcg 12/05/17 06:00 12/09/17 06:45 Synthroid Tab* PO 50 mcg DAILY@0600 QI Administration Magnesium Hydroxide 30 ml 12/04/17 11:07 Milk Of Magnesia Liq* PO Q6H PRN CONSTIPATION Metoprolol Tartrate 50 mg 12/04/17 21:00 12/08/17 20:21 Lopressor Tab* PO 50 mg Q12HR QI Administration Oxycodone/Acetaminophen 1 tab 12/04/17 11:24 12/09/17 06:45 Percocet 5/325 Tab* PO 1 tab Q4H PRN Administration PAIN - MODERATE TO SEVERE Oxycodone/Acetaminophen 2 tab 12/04/17 11:25 Percocet 5/325 Tab* PO Q4H PRN PAIN - SEVERE Senna 2 tab 12/04/17 21:00 12/08/17 20:21 Senokot Tab* PO Not Given BEDTIME QI Sertraline HCl 50 mg 12/05/17 09:00 12/08/17 09:36 Zoloft* PO 50 mg DAILY QI Administration Triamterene/HCTZ 1 cap 12/06/17 09:00 12/08/17 09:37 Dyazide Cap* PO 1 cap DAILY QI Administration Valsartan 40 mg 12/05/17 09:00 12/08/17 09:37 Diovan Tab* PO 40 mg DAILY QI Administration Vital Signs: Vital Signs Temp Pulse Resp BP Pulse Ox 98.3 F 66 18 119/56 98 12/09/17 06:30 12/09/17 06:30 12/09/17 06:45 12/09/17 06:30 12/09/17 06:56 Lab Results: 12/08/17 05:30 Sputum Gram Stain - with neutrophils, diplococci, bacilli and yeast. Pending culture. Exam: GEN: No acute distress. Alert and appropriate. LUNGS: decreased breath sounds and movement consistent with COPD HEART: regular rate and rhythm ABDOMEN: Soft, + bowel sounds, non-tender, non-distended EXTREMITIES: Multiple skin tears on upper and lower extremities. Ecchymotic RUE. Bilateral LE edema. Assessment/Plan: 72yo woman s/p right humerus and femur fractures with longstanding COPD 1. Right humerus fracture: NWB RUE. Per ortho, May do pendulum exercises and PROM, but no AROM. PT/OT 2. Right femur fracture: S/P HAP. PT/OT. WBAT RLE 3. COPD: Symbicort/Combivent. Oxygen via [place] 4. Edema: On Dyazide. 5. DVT Prophylaxis: Lovenox 6. Anxiety: Xanax 7. HTN: Lopressor/Diovan 8. Advanced Directives: Full Code 9. Skin tears: Local dressing changes 10. Bronchitis: Zithromax day #3. Pending sputum culture 12/09/17 08:31
[2017-12-09] MEDS: Azithromycin TAB* 250 MG PO SCH (09:08)
[2017-12-09] MEDS: Valsartan TAB* 40 MG PO SCH (09:08)
[2017-12-09] MEDS: ALPRAZolam TAB* 0.5 MG PO SCH (09:08)
[2017-12-09] MEDS: Folic Acid TAB* 1 MG PO SCH (09:09)
[2017-12-09] MEDS: Aspirin 81 mg CHEW TAB* 81 MG TAB.CHEW PO SCH (09:09)
[2017-12-09] MEDS: Sertraline* 50 MG TAB PO SCH (09:09)
[2017-12-09] MEDS: Triamterene/HCTZ 37.5-25 MG* CAP PO SCH (09:09)
[2017-12-09] MEDS: Metoprolol Tartrate TAB* 50 mg PO SCH ×2 (09:09→20:07)
[2017-12-09] MEDS: PTO - Budesonide/Formote 160/4.5(NF) MDI INH SCH ×2 (09:16→19:35)
[2017-12-09] MEDS: Docusate CAP* 100 MG PO SCH ×2 (09:17→20:04)
[2017-12-09] MEDS: Enoxaparin(*) 30 MG/0.3 ML SYR SUBCUT SCH (12:46)
[2017-12-09] MEDS: Atorvastatin* 10 MG TAB PO SCH (15:46)
[2017-12-09] MEDS: Senna TAB PO SCH (20:04)
[2017-12-09] MEDS: ALPRAZolam TAB* 0.5 MG PO PRN (20:08)
[2017-12-10] MEDS: oxyCODONE/Acetamin 5/325 MG* TAB PO PRN ×4 (03:37→19:38)
[2017-12-10] MEDS: ALPRAZolam TAB* 0.5 MG PO PRN (06:44)
[2017-12-10] MEDS: Levothyroxine TAB* 50 MCG TAB PO SCH (06:44)
[2017-12-10] MEDS: PTO - Budesonide/Formote 160/4.5(NF) MDI INH SCH ×2 (07:35→20:40)
[2017-12-10] MEDS: Folic Acid TAB* 1 MG PO SCH (08:01)
[2017-12-10] MEDS: Metoprolol Tartrate TAB* 50 mg PO SCH ×2 (08:01→21:14)
[2017-12-10] MEDS: Sertraline* 50 MG TAB PO SCH (08:01)
[2017-12-10] MEDS: Triamterene/HCTZ 37.5-25 MG* CAP PO SCH (08:01)
[2017-12-10] MEDS: Azithromycin TAB* 250 MG PO SCH (08:01)
[2017-12-10] MEDS: Aspirin 81 mg CHEW TAB* 81 MG TAB.CHEW PO SCH (08:01)
[2017-12-10] MEDS: Valsartan TAB* 40 MG PO SCH (08:02)
[2017-12-10] MEDS: Docusate CAP* 100 MG PO SCH ×2 (08:07→21:13)
[2017-12-10] MEDS: ALPRAZolam TAB* 0.5 MG PO SCH (10:00)
[2017-12-10] MEDS: Enoxaparin(*) 30 MG/0.3 ML SYR SUBCUT SCH (14:54)
[2017-12-10] MEDS: Atorvastatin* 10 MG TAB PO SCH (16:28)
--- NOTE | 2017-12-10 17:43 | PN ---
Progress Note Date of Service: 12/10/17 Note: RADHA KEEN was visited. Therapy notes read and reviewed. She complains of a lot of pain in her right arm. She does not like to take 2 percocet as they make her loopy, will change to 1 Q 3 hours PRN. Phlegm has cleared. Breathing well. Current Medications: Active Medications Generic Name Dose Route Start Last Admin Trade Name Freq PRN Reason Stop Dose Admin Acetaminophen 650 mg 12/04/17 11:07 Tylenol Tab* PO Q6H PRN FEVER/PAIN Albuterol/Ipratropium 2 puff 12/04/17 11:19 12/09/17 00:52 Combivent Respimat(Nf) INH 2 puff Q6H PRN Administration SOB/WHEEZING Protocol Alprazolam 0.5 mg 12/05/17 09:00 12/10/17 10:00 Xanax Tab* PO Not Given DAILY QI Alprazolam 0.5 mg 12/04/17 16:43 12/10/17 06:44 Xanax Tab* PO 0.5 mg Q8H PRN Administration ANXIETY Aspirin 81 mg 12/05/17 09:00 12/10/17 08:01 Aspirin 81 Mg Chew Tab* PO 81 mg DAILY QI Administration Atorvastatin Calcium 10 mg 12/05/17 17:00 12/10/17 16:28 Lipitor* PO 10 mg 1700 QI Administration Azithromycin 250 mg 12/08/17 09:00 12/10/17 08:01 Zithromax Tab* PO 12/12/17 23:59 250 mg DAILY QI Administration Bisacodyl 10 mg 12/04/17 11:07 Dulcolax Supp* [place] DAILY PRN CONSTIPATION Budesonide/Formoterol Fumarate 2 puff 12/10/17 14:03 Symbicort 160/4.5 (Nf) INH BID [facility] Protocol Docusate Sodium 100 mg 12/04/17 21:00 12/10/17 08:07 Colace Cap* PO Not Given BID QI Enoxaparin Sodium 30 mg 12/04/17 13:00 12/10/17 14:54 Lovenox(*) SUBCUT 30 mg Q24H QI Administration Folic Acid 1 mg 12/05/17 09:00 12/10/17 08:01 Folvite Tab* PO 1 mg DAILY QI Administration Levothyroxine Sodium 50 mcg 12/05/17 06:00 12/10/17 06:44 Synthroid Tab* PO 50 mcg DAILY@0600 QI Administration Magnesium Hydroxide 30 ml 12/04/17 11:07 Milk Of Magnesia Liq* PO Q6H PRN CONSTIPATION Metoprolol Tartrate 50 mg 12/04/17 21:00 12/10/17 08:01 Lopressor Tab* PO 50 mg Q12HR QI Administration Oxycodone/Acetaminophen 1 tab 12/04/17 11:24 12/10/17 14:59 Percocet 5/325 Tab* PO 1 tab Q4H PRN Administration PAIN - MODERATE TO SEVERE Oxycodone/Acetaminophen 2 tab 12/04/17 11:25 Percocet 5/325 Tab* PO Q4H PRN PAIN - SEVERE Senna 2 tab 12/04/17 21:00 12/09/17 20:04 Senokot Tab* PO Not Given BEDTIME QI Sertraline HCl 50 mg 12/05/17 09:00 12/10/17 08:01 Zoloft* PO 50 mg DAILY QI Administration Triamterene/HCTZ 1 cap 12/06/17 09:00 12/10/17 08:01 Dyazide Cap* PO 1 cap DAILY QI Administration Valsartan 40 mg 12/05/17 09:00 12/10/17 08:02 Diovan Tab* PO 40 mg DAILY QI Administration Vital Signs: Vital Signs Temp Pulse Resp BP Pulse Ox 98.2 F 74 20 128/54 94 12/10/17 16:30 12/10/17 16:45 12/10/17 17:15 12/10/17 16:30 12/10/17 16:45 Exam: LUNGS: decreased air entry HEART: reg rhythm ABDOMEN: Soft EXTREMITIES: Multiple skin tears on upper extremities and LLE. Ecchymotic RUE NEUROLOGIC: Alert. Strength intact Assessment/Plan: 1. Right humerus fracture: NWB RUE. Per ortho, May do pendulum exercises and PROM, but no AROM. PT/OT 2. Right femur fracture: S/P HAP. PT/OT. WBAT RLE 3. COPD: Symbicort/Combivent. Oxygen via [place] 4. Edema: On Dyazide. Better 5. DVT Prophylaxis: Lovenox 6. Anxiety: Xanax 7. HTN: Lopressor/Diovan 8. Advanced Directives: Full Code 9. Skin tears: Local dressing changes 10. Bronchitis: Zithromax day #4. Pending sputum culture 12/10/17 17:43
[2017-12-10] MEDS: Senna TAB PO SCH (21:14)
[2017-12-11] MEDS: oxyCODONE/Acetamin 5/325 MG* TAB PO PRN ×6 (02:18→23:35)
[2017-12-11] MEDS: Levothyroxine TAB* 50 MCG TAB PO SCH (05:09)
[2017-12-11] MEDS: PTO - Budesonide/Formote 160/4.5(NF) MDI INH SCH ×2 (08:07→19:35)
[2017-12-11] MEDS: Docusate CAP* 100 MG PO SCH ×2 (09:24→20:14)
[2017-12-11] MEDS: Sertraline* 50 MG TAB PO SCH (09:24)
[2017-12-11] MEDS: ALPRAZolam TAB* 0.5 MG PO SCH (09:24)
[2017-12-11] MEDS: Aspirin 81 mg CHEW TAB* 81 MG TAB.CHEW PO SCH (09:24)
[2017-12-11] MEDS: Metoprolol Tartrate TAB* 50 mg PO SCH ×2 (09:24→20:14)
[2017-12-11] MEDS: Folic Acid TAB* 1 MG PO SCH (09:24)
[2017-12-11] MEDS: Azithromycin TAB* 250 MG PO SCH (09:24)
[2017-12-11] MEDS: Triamterene/HCTZ 37.5-25 MG* CAP PO SCH (09:25)
[2017-12-11] MEDS: Valsartan TAB* 40 MG PO SCH (09:25)
--- NOTE | 2017-12-11 12:40 | PMRUTEAM ---
PMRU: Team Meeting Current Status: Nursing: Current Status Skin Deviations [Right Forearm Bruise ] Skin Deviations [Left Hoskins] Skin Tear Skin Deviations [Right Hoskins] Skin Tear Skin Deviations [Bilateral Other Heel] Skin Deviations [Left Arm] Skin Tear Skin Deviations [Right Hip] Incision Skin Deviations [Right Elbow] Skin Tear Skin Deviations [Right Arm] Incision Skin Deviations [Right Upper Incision Arm] Skin Deviation Description [ Skin tears X2 tegaderm x2 applied Right Forearm] Skin Deviation Description [ Mepilex in place Left Hoskins] Skin Deviation Description [ tegaderm X 2 over fragile skin Right Hoskins] Skin Deviation Description [ sl reddened Bilateral Heel] Skin Deviation Description [ drsg and sling in place Left Arm] Skin Deviation Description [ incision well healed Right Hip] Skin Deviation Description [ [place] intact, well approximated. Cleaned with NS Right Elbow] and 2x2. Xeroform, 4x4, kerlex. Minimal drainage serosanguinous drainage noted. Pt tolerated the dressing change. Skin Deviation Description [ shoulder to hand Right Arm] Skin Deviation Description [ well approximated. [place] intact, no drainage or Right Upper Arm] redness seen. Physical Therapy: Current Status Bed Mobility Assistance Independent Transfer Moblility Assistance Min Assist Transfer/Bed Mobility Perez Walker Recommended Devices Ambulation Assistance Contact Guard Assist Ambulation Assistive Devices Perez Walker Number of Feet Patient 2x90' Ambulated Stairs Assistance Mod Assist Stairs Recommended Devices One Rail Number of Stairs 3 Objective Comments Pt improved with functional activity tolerance, increased confidence with ambulation and decreased need for sitting rest break. Occupational Therapy: Current Status Upper Body Dressing Mod Assist Lower Body Dressing Max Asst Bathing Mod Assist Toileting Min Assist Toilet Transfer Contact Guard Assist Eating Supervision Rec Therapy: Current Status Summary of Assessment and RT assessment complete and pt. is aware of RT Clinical Impression services. Pt. has been pleasant and cooperative during leisure visits. Pt. has leisure material in her room and visits with her in the afternoons. Treatment Goals Pt. will engage in leisure activities while on the unit. Treatment Plan Provide RT services and encourage involvement. Social Work: Current Status Discharge Plan return home with home care svs and family support Potential for Family Training pt's is attentive and involved Anticipated Discharge Home Destination Discharge With home care svs and family support Nutrition: Current Status Monitoring Pt familiar to this communications writer from recent admission to short-stay surgical. Pt reports good appetite today, denies any GI complaints. Last BM was yesterday. Pt does have some difficulty chewing, but this is not new for her, and she states she knows how to compensate. Pt declined softer texture diet. Pt is allerigic to black pepper, so menus are being checked daily and an alternate being sent as needed. Pt underwt, but no recent changes to wt; no acute wt loss. Pt appears to be meeting needs at this time. Goals: Physical Therapy: Initial Goals Bed Mobility Assistance Independent Transfer Mobility Assistance Independent Transfer/Bed Mobility Perez Walker Recommended Devices Ambulation Supervision Ambulation Recommended Devices Perez Walker Ambulation Distance 150 Stairs Assistance Supervision Stair Recommended Devices One Rail Number of Stairs 5 Home Exercise Program Supervision Assistance Physical Therapy: Updated Goals Transfer/Bed Mobility Perez Walker Recommended Devices Occupational Therapy: Initial Goals Goals to be Completed in (Days 10-14 ) Upper Body Bathing Routine Minimal Contact Assist Lower Body Bathing Routine Moderate Assist Upper Body Dressing Routine Minimal Contact Assist Lower Body Dressing Routine Moderate Assist Toilet Hygeine and Clothing Supervision/Set Up Management Routine Toilet Transfer Routine Supervision/Set Up Step-In Shower Transfer Minimal Contact Assist Routine Functional Transfers for ADL Supervision/Set Up Grooming Routine Supervision/Set Up Feeding Routine Supervision/Set Up Nutrition: Goals Intervention Goals 1. Intake will remain adequate to maintain UBW ( 90 +/- 5#) 2. Pt will maintain regular bowel pattern without constipation or diarrhea 3. Skin will remain intact without s/sx breakdown Social Work: Goals Discharge Plan return home with home care svs and family support Potential for Family Training pt's is attentive and involved Anticipated Discharge Home Destination Discharge With home care svs and family support Care Plan: Care Plan ADL's - Improve/Maintain Start: 12/04/17 14:09 Freq: DAILY@1200 Status: Active Target: Protocol: Activity Type Activity Date Activity User E-Sign Co-Sign Detail Recorded Client Recorded Date Recorded By Document 12/10/17 13:45 [id number] 12/10/17 13:45 [id number] 12/10/17 13:45 PMRU Outcome: ADL's/ADL Transfers Orders/Interventions Occupational Therapy Evaluation & Treatment Communication Tool in Patient Room Patient to receive OT 5x/wk for 60-120 Therex min/day Self Care Management Group Therapy UE/LE ADL's with Assist Yes: mod A ADL Transfers with Assist Yes: S Toileting: Transfers,Clothing Management Yes: S ,Hygeine w/Assist Progression Toward Outcome/Goals Progressing Outcome/Goals Met Pt making gains towards tolieting and toilet transfer goals. Pt needs reassurance that she will not develop frozen shoulder from following her RUE restrictions. Pt would like more PROM exercise tomorrow. DVT Prophylaxis- Improve/Maintain Start: 12/04/17 18:40 Freq: DAILY@1200 Status: Active Target: Protocol: Activity Type Activity Date Activity User E-Sign Co-Sign Detail Recorded Client Recorded Date Recorded By Document 12/11/17 01:31 [id number] 12/11/17 01:31 [id number] 12/11/17 01:31 PMRU Outcome: DVT Prophylaxis Outcome/Goals Remains Free of DVT Complies with DVT Prophylaxis /Treatment Demonstrates Knowledge of DVT Prevention/ Treatment TEDS Stockings on Every AM, Off at HS Progression Toward Outcome/Goals Progressing Discharge Planning - Improve/Maintain Start: 12/04/17 18:40 Freq: DAILY@1200 Status: Active Target: Protocol: Activity Type Activity Date Activity User E-Sign Co-Sign Detail Recorded Client Recorded Date Recorded By Document 12/10/17 01:27 [id number] 12/10/17 01:28 [id number] 12/10/17 01:27 PMRU Outcome: Discharge Planning Update Patient Family No Outcome/Goals Demonstrates Understanding of Discharge Plan Progression Toward Outcome/Goals Progressing Mobility- Improve/Maintain Start: 12/04/17 14:54 Freq: DAILY@1200 Status: Active Target: Protocol: Activity Type Activity Date Activity User E-Sign Co-Sign Detail Recorded Client Recorded Date Recorded By Document 12/10/17 14:54 [id number] 12/10/17 14:55 [id number] 12/10/17 14:54 PMRU Outcome: Mobility Physical Therapy Evaluation and Yes Treatment Activity OOB with Assistance Yes WBAT Yes: R LE NWB Yes: R UE Device Yes Assistance Yes Patient to be seen 5x/wk for 60-120 min/ Therex day for: Mobility Training Gait Training Balance Outcome/Goals Maintain/ Achieve Baseline Mobility Status Improve Mobility Status Demonstrates Proper Use of Assistive Devices Free from Complications of Immobility Progression Toward Outcome/Goals Progressing Outcome/Goals Met Improve Mobility Status Outcome/Goals Met Comment Pt able to perform step ups onto 4" step with CGA and increased ambulation distances to 90 ' with CGA at gait belt with hemiwalker Bed Mobility Yes: IND Transfers Yes: IND WITH HEMIWALKER Gait x ft Yes: SUP X150FT WITH HEMIWALKER W/C Mobility x ft No Up/Down Stairs Yes: SUP X5 STEPS WITH ONE RAIL With HEP Yes Pain/Comfort- Improve/Maintain Start: 12/04/17 18:40 Freq: DAILY@1200 Status: Active Target: Protocol: Activity Type Activity Date Activity User E-Sign Co-Sign Detail Recorded Client Recorded Date Recorded By Document 12/11/17 01:31 [id number] 12/11/17 01:31 [id number] 12/11/17 01:31 PMRU Outcome: Pain/Comfort Outcome/Goals Demonstrates Knowledge and Use of Available Comfort Measures Achieves Acceptable Comfort/Pain Level as Determined by Patient/Condit Maintain Comfort Level Allowing Patient to Fully Participate in Rehab Progression Toward Outcome/Goals Progressing Respiratory - Improve/Maintain Start: 12/04/17 18:40 Freq: DAILY@1200 Status: Active Target: Protocol: Activity Type Activity Date Activity User E-Sign Co-Sign Detail Recorded Client Recorded Date Recorded By Document 12/11/17 01:31 [id number] 12/11/17 01:31 [id number] 12/11/17 01:31 PMRU Outcome: Respiratory Does Patient Have a Trach No Outcome/Goals Maintain/ Improve Baseline Respiratory Status Maintain/ Improve Activity Tolerance Prevent Pneumonia/ Atelectasis Progression Toward Outcome/Goals Progressing Safety- Improve/Maintain Start: 12/04/17 18:40 Freq: DAILY@1200 Status: Active Target: Protocol: Activity Type Activity Date Activity User E-Sign Co-Sign Detail Recorded Client Recorded Date Recorded By Document 12/11/17 01:31 [id number] 12/11/17 01:31 [id number] 12/11/17 01:31 PMRU Outcome: Safety Outcome/Goals Remain Free of Injury or Harm Cooperates with Safety Measures for Least Restrictive Environment Prevent Falls/ Injury Progression Toward Outcome/Goals Progressing Skin- Improve/Maintain Start: 12/04/17 18:40 Freq: DAILY@1200 Status: Active Target: Protocol: Activity Type Activity Date Activity User E-Sign Co-Sign Detail Recorded Client Recorded Date Recorded By Document 12/11/17 01:31 [id number] 12/11/17 01:31 [id number] 12/11/17 01:31 PMRU Outcome: Skin Skin Risk Level Medium Skin Orders Dressing Change Air Mattress Spenco Boots Outcome/Goals Maintain/ Improve Skin Intergrity Free from Decubitus Maintain/ Improve Wound Status Surgical Incisions Healing Progression Toward Outcome/Goals Progressing Medicine Note: Length of Stay: 3 days Anticipated Discharge Destination: Home Tentative Discharge Date: 12/14/17 Discharged to: Home
[2017-12-11] MEDS: Enoxaparin(*) 30 MG/0.3 ML SYR SUBCUT SCH (14:57)
[2017-12-11] MEDS: Atorvastatin* 10 MG TAB PO SCH (17:05)
--- NOTE | 2017-12-11 18:21 | PN ---
Progress Note Date of Service: 12/11/17 Note: RADHA KEEN was visited. Therapy notes read and reviewed. She was discussed in interdisciplinary team rounds. Making gains. Doing better than she was and progressing faster than anticipated Current Medications: Active Medications Generic Name Dose Route Start Last Admin Trade Name Freq PRN Reason Stop Dose Admin Acetaminophen 650 mg 12/04/17 11:07 Tylenol Tab* PO Q6H PRN FEVER/PAIN Albuterol/Ipratropium 2 puff 12/04/17 11:19 12/09/17 00:52 Combivent Respimat(Nf) INH 2 puff Q6H PRN Administration SOB/WHEEZING Protocol Alprazolam 0.5 mg 12/05/17 09:00 12/11/17 09:24 Xanax Tab* PO 0.5 mg DAILY QI Administration Alprazolam 0.5 mg 12/04/17 16:43 12/10/17 06:44 Xanax Tab* PO 0.5 mg Q8H PRN Administration ANXIETY Aspirin 81 mg 12/05/17 09:00 12/11/17 09:24 Aspirin 81 Mg Chew Tab* PO 81 mg DAILY QI Administration Atorvastatin Calcium 10 mg 12/05/17 17:00 12/11/17 17:05 Lipitor* PO 10 mg 1700 QI Administration Azithromycin 250 mg 12/08/17 09:00 12/11/17 09:24 Zithromax Tab* PO 12/12/17 23:59 250 mg DAILY QI Administration Bisacodyl 10 mg 12/04/17 11:07 Dulcolax Supp* [place] DAILY PRN CONSTIPATION Budesonide/Formoterol Fumarate 2 puff 12/10/17 14:03 12/11/17 08:07 Symbicort 160/4.5 (Nf) INH 2 puff BID QI Administration Protocol Docusate Sodium 100 mg 12/04/17 21:00 12/11/17 09:24 Colace Cap* PO 100 mg BID QI Administration Enoxaparin Sodium 30 mg 12/04/17 13:00 12/11/17 14:57 Lovenox(*) SUBCUT 30 mg Q24H QI Administration Folic Acid 1 mg 12/05/17 09:00 12/11/17 09:24 Folvite Tab* PO 1 mg DAILY QI Administration Levothyroxine Sodium 50 mcg 12/05/17 06:00 12/11/17 05:09 Synthroid Tab* PO 50 mcg DAILY@0600 QI Administration Magnesium Hydroxide 30 ml 12/04/17 11:07 Milk Of Radha Liq* PO Q6H PRN CONSTIPATION Metoprolol Tartrate 50 mg 12/04/17 21:00 12/11/17 09:24 Lopressor Tab* PO 50 mg Q12HR QI Administration Oxycodone/Acetaminophen 1 tab 12/10/17 17:45 12/11/17 17:07 Percocet 5/325 Tab* PO 1 tab Q3H PRN Administration PAIN - MODERATE TO SEVERE Senna 2 tab 12/04/17 21:00 12/10/17 21:14 Senokot Tab* PO 2 tab BEDTIME QI Administration Sertraline HCl 50 mg 12/05/17 09:00 12/11/17 09:24 Zoloft* PO 50 mg DAILY QI Administration Triamterene/HCTZ 1 cap 12/06/17 09:00 12/11/17 09:25 Dyazide Cap* PO 1 cap DAILY QI Administration Valsartan 40 mg 12/05/17 09:00 12/11/17 09:25 Diovan Tab* PO 40 mg DAILY QI Administration Vital Signs: Vital Signs Temp Pulse Resp BP Pulse Ox 98.0 F 59 18 115/49 99 12/11/17 15:26 12/11/17 15:26 12/11/17 17:09 12/11/17 15:26 12/11/17 15:26 Exam: LUNGS: decreased air entry HEART: reg rhythm ABDOMEN: Soft EXTREMITIES: Multiple skin tears on upper extremities and LLE. Ecchymotic RUE NEUROLOGIC: Alert. Strength intact Assessment/Plan: 1. Right humerus fracture: NWB RUE. Per ortho, May do pendulum exercises and PROM, but no AROM. PT/OT 2. Right femur fracture: S/P HAP. PT/OT. WBAT RLE 3. COPD: Symbicort/Combivent. Oxygen via NC 4. Edema: On Dyazide. Better 5. DVT Prophylaxis: Lovenox 6. Anxiety: Xanax 7. HTN: Lopressor/Diovan 8. Advanced Directives: Full Code 9. Skin tears: Local dressing changes 10. Bronchitis: Zithromax day #5. 12/11/17 18:21
[2017-12-11] MEDS: Senna TAB PO SCH (20:14)
[2017-12-12] MEDS: oxyCODONE/Acetamin 5/325 MG* TAB PO PRN ×6 (04:10→22:26)
[2017-12-12] MEDS: Albuterol/Ipratropium RESP(NF) MDI (Combivent Respimat) INH PRN (04:11)
[2017-12-12 05:41] LABS: ABS Basophils 0 10^3/ul (0-0.2); ABS Eosinophils 0.1 10^3/ul (0-0.6); ABS Lymphocytes 0.4 10^3/ul (1.0-4.8); ABS Monocytes 0.5 10^3/ul (0-0.8); ABS Neutrophils 2.2 10^3/ul (1.5-7.7); ABS Nucleated RBC 0 10^3/ul; Eosinophil % 2.7 % (0-6); Hematocrit 27 % (35-47); Hemoglobin 9.4 g/dl (12.0-16.0); Lymphocyte % 13.2 % (25-47); Mean Corpuscular HGB Conc 35 g/dl (31-36); Mean Corpuscular Hemoglobin 34 pg (27-31); Mean Corpuscular Volume 97 fL (80-97); Nucleated Red Blood Cells % 0.1; Platelet Count 251 10^3/ul (150-450); Red Blood Count 2.79 10^6/ul (4.0-5.4); Red Cell Distribution Width 19 % (10.5-15); White Blood Count 3.2 10^3/ul (3.5-10.8)
[2017-12-12 06:10] LABS: EGFR Non-African American 153.4 (>60)
[2017-12-12] MEDS: Levothyroxine TAB* 50 MCG TAB PO SCH (06:37)
[2017-12-12] MEDS: PTO - Budesonide/Formote 160/4.5(NF) MDI INH SCH ×2 (07:22→19:36)
[2017-12-12] MEDS: Folic Acid TAB* 1 MG PO SCH (08:09)
[2017-12-12] MEDS: Docusate CAP* 100 MG PO SCH ×2 (08:09→19:49)
[2017-12-12] MEDS: Metoprolol Tartrate TAB* 50 mg PO SCH ×2 (08:09→19:46)
[2017-12-12] MEDS: ALPRAZolam TAB* 0.5 MG PO SCH (08:09)
[2017-12-12] MEDS: Azithromycin TAB* 250 MG PO SCH (08:09)
[2017-12-12] MEDS: Aspirin 81 mg CHEW TAB* 81 MG TAB.CHEW PO SCH (08:09)
[2017-12-12] MEDS: Triamterene/HCTZ 37.5-25 MG* CAP PO SCH (08:09)
[2017-12-12] MEDS: Sertraline* 50 MG TAB PO SCH (08:09)
[2017-12-12] MEDS: Valsartan TAB* 40 MG PO SCH (08:09)
[2017-12-12] MEDS: Enoxaparin(*) 30 MG/0.3 ML SYR SUBCUT SCH (14:18)
[2017-12-12] MEDS: Atorvastatin* 10 MG TAB PO SCH (16:50)
--- NOTE | 2017-12-12 17:43 | PN ---
Progress Note Date of Service: 12/12/17 Note: RADHA KEEN was visited. Therapy notes read and reviewed. She thinks the swelling in her legs is getting better, as do I. Remains on Dyazide. She is finishing up her course of Zithromax. Current Medications: Active Medications Generic Name Dose Route Start Last Admin Trade Name Freq PRN Reason Stop Dose Admin Acetaminophen 650 mg 12/04/17 11:07 Tylenol Tab* PO Q6H PRN FEVER/PAIN Albuterol/Ipratropium 2 puff 12/04/17 11:19 12/12/17 04:11 Combivent Respimat(Nf) INH 2 puff Q6H PRN Administration SOB/WHEEZING Protocol Alprazolam 0.5 mg 12/05/17 09:00 12/12/17 08:09 Xanax Tab* PO 0.5 mg DAILY QI Administration Alprazolam 0.5 mg 12/04/17 16:43 12/10/17 06:44 Xanax Tab* PO 0.5 mg Q8H PRN Administration ANXIETY Aspirin 81 mg 12/05/17 09:00 12/12/17 08:09 Aspirin 81 Mg Chew Tab* PO 81 mg DAILY QI Administration Atorvastatin Calcium 10 mg 12/05/17 17:00 12/12/17 16:50 Lipitor* PO 10 mg 1700 QI Administration Azithromycin 250 mg 12/08/17 09:00 12/12/17 08:09 Zithromax Tab* PO 12/12/17 23:59 250 mg DAILY QI Administration Bisacodyl 10 mg 12/04/17 11:07 Dulcolax Supp* [place] DAILY PRN CONSTIPATION Budesonide/Formoterol Fumarate 2 puff 12/10/17 14:03 12/12/17 07:22 Symbicort 160/4.5 (Nf) INH 2 puff BID QI Administration Protocol Docusate Sodium 100 mg 12/04/17 21:00 12/12/17 08:09 Colace Cap* PO 100 mg BID QI Administration Enoxaparin Sodium 30 mg 12/04/17 13:00 12/12/17 14:18 Lovenox(*) SUBCUT 30 mg Q24H QI Administration Folic Acid 1 mg 12/05/17 09:00 12/12/17 08:09 Folvite Tab* PO 1 mg DAILY QI Administration Levothyroxine Sodium 50 mcg 12/05/17 06:00 12/12/17 06:37 Synthroid Tab* PO 50 mcg DAILY@0600 QI Administration Magnesium Hydroxide 30 ml 12/04/17 11:07 Milk Of Magnesia Liq* PO Q6H PRN CONSTIPATION Metoprolol Tartrate 50 mg 12/04/17 21:00 12/12/17 08:09 Lopressor Tab* PO 50 mg Q12HR QI Administration Oxycodone/Acetaminophen 1 tab 12/10/17 17:45 12/12/17 14:22 Percocet 5/325 Tab* PO 1 tab Q3H PRN Administration PAIN - MODERATE TO SEVERE Senna 2 tab 12/04/17 21:00 12/11/17 20:14 Senokot Tab* PO 2 tab BEDTIME QI Administration Sertraline HCl 50 mg 12/05/17 09:00 12/12/17 08:09 Zoloft* PO 50 mg DAILY QI Administration Triamterene/HCTZ 1 cap 12/06/17 09:00 12/12/17 08:09 Dyazide Cap* PO 1 cap DAILY QI Administration Valsartan 40 mg 12/05/17 09:00 12/12/17 08:09 Diovan Tab* PO 40 mg DAILY QI Administration Vital Signs: Vital Signs Temp Pulse Resp BP Pulse Ox 97.7 F 72 18 169/100 99 12/12/17 16:09 12/12/17 16:09 12/12/17 17:26 12/12/17 16:09 12/12/17 17:29 Lab Results: Laboratory Results - last 24 hr 12/12/17 12/12/17 04:54 04:54 WBC 3.2 L RBC 2.79 L Hgb 9.4 L Hct 27 L MCV 97 MCH 34 H MCHC 35 RDW 19 H Plt Count 251 MPV 7.0 L Neut % (Auto) 67.8 Lymph % (Auto) 13.2 L Mer[place]ether % (Auto) 15.6 H Eos % (Auto) 2.7 Baso % (Auto) 0.7 Absolute Neuts (auto) 2.2 Absolute Lymphs (auto) 0.4 L Absolute Monos (auto) 0.5 Absolute Eos (auto) 0.1 Absolute Basos (auto) 0 Absolute Nucleated RBC 0 Nucleated RBC % 0.1 Sodium 131 L Potassium 4.0 Chloride 95 L Carbon Dioxide 34 H Anion Gap 2 BUN 6 Creatinine 0.41 L Est GFR ( Amer) 197.2 Est GFR (Non-Af Amer) 153.4 BUN/Creatinine Ratio 14.6 Glucose 84 Calcium 8.3 L Total Bilirubin 0.70 AST 26 ALT 13 Alkaline Phosphatase 115 H Total Protein 5.4 L Albumin 2.8 L Globulin 2.6 Albumin/Globulin Ratio 1.1 Exam: LUNGS: decreased air movement HEART: reg rhythm ABDOMEN: Soft EXTREMITIES: Multiple skin tears on upper extremities and LLE. Ecchymotic RUE NEUROLOGIC: Alert. Strength intact Assessment/Plan: 1. Right humerus fracture: NWB RUE. Per ortho, May do pendulum exercises and PROM, but no AROM. PT/OT 2. Right femur fracture: S/P HAP. PT/OT. WBAT RLE 3. COPD: Symbicort/Combivent. Oxygen via NC 4. Edema: On Dyazide. Better 5. DVT Prophylaxis: Lovenox 6. Anxiety: Xanax 7. HTN: Lopressor/Diovan 8. Advanced Directives: Full Code 9. Skin tears: Local dressing changes 10. Bronchitis: Zithromax day #6. 12/12/17 17:43
[2017-12-12] MEDS: Senna TAB PO SCH (19:49)
[2017-12-13] MEDS: ALPRAZolam TAB* 0.5 MG PO PRN (01:00)
[2017-12-13] MEDS: oxyCODONE/Acetamin 5/325 MG* TAB PO PRN ×6 (02:12→20:29)
[2017-12-13] MEDS: Levothyroxine TAB* 50 MCG TAB PO SCH (05:12)
[2017-12-13] MEDS: PTO - Budesonide/Formote 160/4.5(NF) MDI INH SCH ×2 (08:20→20:19)
[2017-12-13] MEDS: Metoprolol Tartrate TAB* 50 mg PO SCH ×2 (09:53→20:29)
[2017-12-13] MEDS: Aspirin 81 mg CHEW TAB* 81 MG TAB.CHEW PO SCH (09:53)
[2017-12-13] MEDS: Docusate CAP* 100 MG PO SCH ×2 (09:53→20:51)
[2017-12-13] MEDS: ALPRAZolam TAB* 0.5 MG PO SCH (09:53)
[2017-12-13] MEDS: Folic Acid TAB* 1 MG PO SCH (09:53)
[2017-12-13] MEDS: Triamterene/HCTZ 37.5-25 MG* CAP PO SCH (09:54)
[2017-12-13] MEDS: Valsartan TAB* 40 MG PO SCH (09:54)
[2017-12-13] MEDS: Sertraline* 50 MG TAB PO SCH (09:54)
[2017-12-13] MEDS: Enoxaparin(*) 30 MG/0.3 ML SYR SUBCUT SCH (12:40)
[2017-12-13] MEDS: Atorvastatin* 10 MG TAB PO SCH (16:17)
--- NOTE | 2017-12-13 16:57 | PN ---
Progress Note Date of Service: 12/13/17 Note: RADHA KEEN was visited. Therapy notes read and reviewed. For discharge in am. She feels good about going home. She is close to finished with Lovenox. She is three weeks post-op for her hip and 12 days for her humerus. Current Medications: Active Medications Generic Name Dose Route Start Last Admin Trade Name Freq PRN Reason Stop Dose Admin Acetaminophen 650 mg 12/04/17 11:07 Tylenol Tab* PO Q6H PRN FEVER/PAIN Albuterol/Ipratropium 2 puff 12/04/17 11:19 12/12/17 04:11 Combivent Respimat(Nf) INH 2 puff Q6H PRN Administration SOB/WHEEZING Protocol Alprazolam 0.5 mg 12/05/17 09:00 12/13/17 09:53 Xanax Tab* PO 0.5 mg DAILY QI Administration Alprazolam 0.5 mg 12/04/17 16:43 12/13/17 01:00 Xanax Tab* PO 0.5 mg Q8H PRN Administration ANXIETY Aspirin 81 mg 12/05/17 09:00 12/13/17 09:53 Aspirin 81 Mg Chew Tab* PO 81 mg DAILY QI Administration Atorvastatin Calcium 10 mg 12/05/17 17:00 12/13/17 16:17 Lipitor* PO 10 mg 1700 QI Administration Bisacodyl 10 mg 12/04/17 11:07 Dulcolax Supp* [place] DAILY PRN CONSTIPATION Budesonide/Formoterol Fumarate 2 puff 12/10/17 14:03 12/13/17 08:20 Symbicort 160/4.5 (Nf) INH 2 puff BID QI Administration Protocol Docusate Sodium 100 mg 12/04/17 21:00 12/13/17 09:53 Colace Cap* PO 100 mg BID QI Administration Enoxaparin Sodium 30 mg 12/04/17 13:00 12/13/17 12:40 Lovenox(*) SUBCUT 30 mg Q24H QI Administration Folic Acid 1 mg 12/05/17 09:00 12/13/17 09:53 Folvite Tab* PO 1 mg DAILY QI Administration Levothyroxine Sodium 50 mcg 12/05/17 06:00 12/13/17 05:12 Synthroid Tab* PO 50 mcg DAILY@0600 QI Administration Magnesium Hydroxide 30 ml 12/04/17 11:07 Milk Of Magnsagar Liq* PO Q6H PRN CONSTIPATION Metoprolol Tartrate 50 mg 12/04/17 21:00 12/13/17 09:53 Lopressor Tab* PO 50 mg Q12HR QI Administration Oxycodone/Acetaminophen 1 tab 12/10/17 17:45 12/13/17 16:17 Percocet 5/325 Tab* PO 1 tab Q3H PRN Administration PAIN - MODERATE TO SEVERE Senna 2 tab 12/04/17 21:00 12/12/17 19:49 Senokot Tab* PO Not Given BEDTIME QI Sertraline HCl 50 mg 12/05/17 09:00 12/13/17 09:54 Zoloft* PO 50 mg DAILY QI Administration Triamterene/HCTZ 1 cap 12/06/17 09:00 12/13/17 09:54 Dyazide Cap* PO 1 cap DAILY QI Administration Valsartan 40 mg 12/05/17 09:00 12/13/17 09:54 Diovan Tab* PO 40 mg DAILY QI Administration Vital Signs: Vital Signs Temp Pulse Resp BP Pulse Ox 99.4 F 74 18 143/66 96 12/13/17 05:13 12/13/17 08:24 12/13/17 16:18 12/13/17 05:13 12/13/17 08:24 Exam: LUNGS: decreased air movement HEART: reg rhythm ABDOMEN: Soft EXTREMITIES: Multiple skin tears on upper extremities and LLE. Ecchymotic RUE NEUROLOGIC: Alert. Strength intact Assessment/Plan: 1. Right humerus fracture: NWB RUE. Per ortho, May do pendulum exercises and PROM, but no AROM. PT/OT 2. Right femur fracture: S/P HAP. PT/OT. WBAT RLE 3. COPD: Symbicort/Combivent. Oxygen via NC 4. Edema: On Dyazide. Better 5. DVT Prophylaxis: Lovenox 6. Anxiety: Xanax 7. HTN: Lopressor/Diovan 8. Advanced Directives: Full Code 9. Skin tears: Local dressing changes 10. Bronchitis: Zithromax finished 12/13/17 16:58
[2017-12-13] MEDS: Senna TAB PO SCH (20:51)
[2017-12-14] MEDS: oxyCODONE/Acetamin 5/325 MG* TAB PO PRN ×3 (01:01→09:18)
[2017-12-14] MEDS: Levothyroxine TAB* 50 MCG TAB PO SCH (04:52)
[2017-12-14] MEDS: Albuterol/Ipratropium RESP(NF) MDI (Combivent Respimat) INH PRN (04:53)
[2017-12-14 05:11] VITALS: BP 127/47
[2017-12-14] MEDS: Metoprolol Tartrate TAB* 50 mg PO SCH (09:18)
[2017-12-14] MEDS: Aspirin 81 mg CHEW TAB* 81 MG TAB.CHEW PO SCH (09:18)
[2017-12-14] MEDS: Sertraline* 50 MG TAB PO SCH (09:18)
[2017-12-14] MEDS: Valsartan TAB* 40 MG PO SCH (09:18)
[2017-12-14] MEDS: Triamterene/HCTZ 37.5-25 MG* CAP PO SCH (09:18)
[2017-12-14] MEDS: Folic Acid TAB* 1 MG PO SCH (09:18)
[2017-12-14] MEDS: ALPRAZolam TAB* 0.5 MG PO SCH (09:19)
[2017-12-14] MEDS: Docusate CAP* 100 MG PO SCH (09:21)
[2017-12-14] MEDS: PTO - Budesonide/Formote 160/4.5(NF) MDI INH SCH (09:23)
--- NOTE | 2017-12-15 06:00 | DS ---
CC: Daxa James MD * DISCHARGE SUMMARY: DATE OF ADMISSION: 12/04/17 DATE OF DISCHARGE: 12/14/17 DISCHARGE DIAGNOSES: 1. Right femur fracture status post hemiarthroplasty of the same. 2. Right humerus fracture status post ORIF. 3. Chronic obstructive pulmonary disease. 4. Peripheral edema. 5. Bronchitis. 6. Osteoporosis. 7. Coronary artery disease. 8. Hypertension. 9. Hypothyroidism. 10. Status post myocardial infarct, remote history of illness. HOSPITAL COURSE: For a complete history of the events leading up to her rehab stay, please see the history and physical dictated by me on 12/04/17. While on the rehab unit, the patient felt like she was becoming increasingly short of breath and her sputum had changed color. She was put on Zithromax for probable bronchitis. She got a 6-day course of Zithromax and improved in her symptomatology. The patient was maintained on Lovenox for DVT prophylaxis. She was on supplemental oxygen during her rehab stay. The patient was otherwise medically stable. She was seen by both physical therapy and occupational therapy while on the rehab unit. She made good gains in both disciplines. With physical therapy at the time of admission, the patient required max assist to do a transfer. She was max assist to ambulate 4 feet with occupational therapy at the time of admission. The patient required max assist for upper body dressing, max assist for lower body dressing, max assist for bathing, max assist for toileting, mod assist for toilet transfer. By the time of discharge, the patient was supervision with transfer, supervision ambulating 150 feet, supervision with stair climbing. She was moderate amount of assistance for upper and lower body dressing because of her right arm. She was supervision for toilet transfers and supervision for toileting. She did need min assist to put up her pants. The patient's came in for family training prior to discharge. The patient was discharged home on 12/14/17. DISCHARGE DIET: Regular. DISCHARGE MEDICATIONS: 1. Combivent Respimat 2 puffs every 6 hours as needed. 2. Xanax 0.5 mg in the morning and 0.5 mg every 8 hours as needed, not to exceed 3 tablets a day. 3. She is on aspirin 81 mg daily. 4. Lipitor 10 mg daily. 5. Symbicort 2 puffs twice daily. 6. Lovenox 30 mg subcutaneously every 24 hours for 6 more doses. 7. Synthroid 50 mcg daily. 8. Lopressor 50 mg twice a day. 9. Percocet 5/325, 1 tablet every 3 hours as needed. 10. Zoloft 50 mg daily. 11. Dyazide 1 capsule every day. 12. Valsartan 40 mg daily. SERVICES AFTER DISCHARGE: Through visiting nurse services of [facility]. She will have assisted, home physical therapy, home occupational therapy. Please note that the patient was started on Dyazide because of peripheral swelling after her surgery. Also note that her stitches were removed from her right elbow without difficulty and her nancy were removed from her right shoulder region without difficulty. FOLLOWUP: The patient will follow up with Dr. Craranza as well as with Dr. Castillo. [id number]/[facility] #: [id number] [place]
== END 2017-12-14 11:15 | disposition home health service (06) | DRG 560 ==
LOC: PMRU 10:17
PROVIDERS: ADMIT Physical Medicine & Rehabilitation; ATTEND Physical Medicine & Rehabilitation
PROC: F07Z5ZZ Bed Mobility Treatment (ICD-10-PCS; principal; 2017-12-04)
PROC: F07Z9ZZ Gait Training/Functional Ambulation Treatment (ICD-10-PCS; 2017-12-04)
PROC: F07Z8ZZ Transfer Training Treatment (ICD-10-PCS; 2017-12-04)
PROC: F08Z0ZZ Bathing/Showering Techniques Treatment (ICD-10-PCS; 2017-12-04)
PROC: F08Z1ZZ Dressing Techniques Treatment (ICD-10-PCS; 2017-12-04)
PROC: F08Z3ZZ Feeding/Eating Treatment (ICD-10-PCS; 2017-12-04)
DX: S72.91XD Unspecified fracture of right femur, subsequent encounter for closed fracture with routine healing (principal); N39.0 Urinary tract infection, site not specified; S42.301D Unspecified fracture of shaft of humerus, right arm, subsequent encounter for fracture with routine healing; W01.0XXD Fall on same level from slipping, tripping and stumbling without subsequent striking against object, subsequent encounter; Z47.1 Aftercare following joint replacement surgery; Z96.641 Presence of right artificial hip joint; J44.9 Chronic obstructive pulmonary disease, unspecified; J40 Bronchitis, not specified as acute or chronic; M81.0 Age-related osteoporosis without current pathological fracture; I25.10 Atherosclerotic heart disease of native coronary artery without angina pectoris; I11.9 Hypertensive heart disease without heart failure; S81.812D Laceration without foreign body, left lower leg, subsequent encounter; S41.112D Laceration without foreign body of left upper arm, subsequent encounter; S41.111D Laceration without foreign body of right upper arm, subsequent encounter; E03.9 Hypothyroidism, unspecified; R60.0 Localized edema; F41.9 Anxiety disorder, unspecified; I25.2 Old myocardial infarction; Z99.81 Dependence on supplemental oxygen; Z85.818 Personal history of malignant neoplasm of other sites of lip, oral cavity, and pharynx; Z88.1 Allergy status to other antibiotic agents; Z88.8 Allergy status to other drugs, medicaments and biological substances; Z87.891 Personal history of nicotine dependence
CPT/HCPCS: 36415; 80053; 85025; 87070; 87205; 94640; A9270-GY; J1650; J2185

== ENCOUNTER 2018-06-15 08:54 | Emergency (ER) | payer MEDICARE ==
[2018-06-15 09:39] VITALS: BP 131/62
--- NOTE | 2018-06-15 10:12 | UC ---
Lower Extremity/Ankle HPI - HPI Summary HPI Summary: 73 y/o female presents to the urgent care accompany by c/o of base of her left great toe red and swollen and mild yellowish discharge from the big toenail since yesterday. Pt reports PMHX of COPD and for the past year B/L hip and RT shoulder repair s/p fractures. Pain is sharp at touch about 8/10,m warm and swollen - History of Current Complaint Chief Complaint: UCLowerExtremity Stated Complaint: L FOOT PAIN Time Seen by Provider: 06/15/18 10:06 Hx Obtained From: Patient Hx Last Menstrual Period: 07/30/1999 Onset/Duration: Gradual Onset, Lasting Days - 1 day, Still Present, Worse Since - today Severity Initially: Mild Severity Currently: Moderate Pain Intensity: 8 Pain Scale Used: 0-10 Numeric Aggravating Factor(s): Standing, Ambulation Alleviating Factor(s): Rest Able to Bear Weight: Yes - Risk Factors Gout Risk Factors: Age Over 40, Hypertension, Hyperlipidemia DVT Risk Factors: Negative Septic Arthritis Risk Factor: Negative - Allergies/Home Medications Allergies/Adverse Reactions: Allergies Allergy/AdvReac Type Severity Reaction Status Date / Time bupropion Allergy Rash Verified 06/15/18 09:40 lamotrigine [From Lamictal] Allergy Rash Verified 06/15/18 09:40 levofloxacin Allergy Swelling Verified 06/15/18 09:40 zonisamide Allergy decreases Verified 06/15/18 09:40 WBCs ciprofloxacin AdvReac Muscle Ache Verified 06/15/18 09:40 levetiracetam [From Keppra] AdvReac decreases Verified 06/15/18 09:40 WBCs lorazepam [From Ativan] AdvReac Altered Verified 06/15/18 09:40 Mental Status morphine AdvReac Hallucinati Verified 06/15/18 09:40 ons nifedipine [From Procardia] AdvReac Rash Verified 06/15/18 09:40 topiramate AdvReac Tachycardia Verified 06/15/18 09:40 Home Medications: Home Medications ALPRAZolam TAB* [Xanax TAB*] 0.5 mg PO TID MDD 1.5 mg 06/15/18 [History] Acetaminophen [8Hr Arthritis Pain Relief] 650 mg PO BEDTIME 06/15/18 [History Confirmed 06/15/18] Irbesartan 300 mg PO 06/15/18 [History] Metoprolol Tartrate TAB* [Lopressor TAB*] 100 mg PO DAILY 06/15/18 [History] PMH/Surg Hx/FS Hx/Imm Hx - Additional Past Medical History Additional PMH: B/L hip repair s/p fracture, RT shoulder and femur repair s/p fracture Previously Healthy: Yes Endocrine History: Hypothyroidism, Dyslipidemia Cardiovascular History: Hypertension Respiratory History: COPD Psychological History: Anxiety Other Cancer History: tongue cancer Other History Of: Negative For: Anticoagulant Therapy - Surgical History Surgical History: Yes Surgery Procedure, Year, and Place: 08/27/13 - BIOPSY UNDER TONGUE [id number], salivary gland and lymph node removed from left neck. [facility]. bilat hips and shoulder repaired. - Family History Known Family History: Positive: Cardiac Disease Negative: Hypertension - Social History Alcohol Use: Daily Alcohol Amount: 2-3 GLASSES/DAY Substance Use Type: None Smoking Status (MU): Former Smoker Type: Cigarettes Amount Used/How Often: 45 years Length of Time of Smoking/Using Tobacco: 07/30/2011 Have You Smoked in the Last Year: No When Did the Patient Quit Smoking/Using Tobacco: 07/30/2011 Household Exposure Type: Cigarettes - Immunization History Most Recent Influenza Vaccination: 2017 Most Recent Tetanus Shot: UNKNOWN Most Recent Pneumonia Vaccination: 2014 Review of Systems All Other Systems Reviewed And Are Negative: Yes Constitutional: Positive: Negative Skin: Positive: Rash - redness and swelling at the base of the left first big toe, left big toenail w/ mild yellowish dicahrge Eyes: Positive: Negative ENT: Positive: Negative Respiratory: Positive: Negative Cardiovascular: Positive: Negative Gastrointestinal: Positive: Negative Genitourinary: Positive: Negative Motor: Positive: Negative Neurovascular: Positive: Negative Musculoskeletal: Positive: Decreased ROM - left big toe, Other: - left big toe pain Neurological: Positive: Negative Psychological: Positive: Negative Is Patient Immunocompromised?: No Physical Exam - Summary Physical Exam Summary: Vital Signs Reviewed: Yes General : well developed, well nourished thin female w/o any apparent pain or reparatory distress, breathing well w/ her O2 tank Eyes: Positive: Conjunctiva Clear - PERRLA, EOMI ENT: Positive: Normal ENT inspection, Hearing grossly normal, Pharynx normal, TMs normal Neck: Positive: Supple, Nontender, No Lymphadenopathy Respiratory: Positive: Chest non-tender, Lungs clear, Normal breath sounds, No respiratory distress Cardiovascular: Positive: RRR, No Murmur, Pulses Normal Abdomen Description: Positive: Nontender, No Organomegaly, Soft. Negative: CVA Tenderness (R), CVA Tenderness (L) Bowel Sounds: Positive: Present Musculoskeletal: Positive: Strength Intact, ROM Intact, No Edema, LF Foot/Toes: Pt is able to bear weight but ambulate with mild limping. LF foot :No surface trauma, no ecchymosis, positive erythema at the level of first MCPJ w/ moderate swelling , no lesions, ulcers or break in skin integrity. medial aspect of the left bigtoe nail w/ discrete yellowish discharge, no swelling observed there. all left toe nails w/ chronic onychomycosis. The L foot is without obvious asymmetry or deformity when compared to the R foot. No bony step -off, point tenderness to palpation over first MCPJ, no tenderness of mid foot or hind foot, FROM of the left foot and toes. distal motor and neurovascular status are intact. Neurological Exam: Normal Psychological Exam: Normal Skin Exam: Normal Triage Information Reviewed: Yes Vital Signs: Initial Vital Signs Temp 100.1 F 06/15/18 09:34 Pulse 84 06/15/18 09:34 Resp 22 06/15/18 09:34 BP 131/62 06/15/18 09:34 Pulse Ox 97 06/15/18 09:34 Discharge - Sign-Out/Discharge Documenting (check all that apply): Patient Departure - D/c home All imaging exams completed and their final reports reviewed: Yes - Discharge Plan Condition: Stable Disposition: HOME Prescriptions: Acetaminophen TAB* [Tylenol TAB*] 650 mg PO Q6H PRN #30 tab PRN Reason: Pain Aluminum Sulf/Ca Acetate SALOMON* [Domeboro SALOMON*] 1 applic TOPICAL TID #1 box Cephalexin CAP* [Keflex CAP*] 500 mg PO QID #28 cap Colchicine* [Colcrys*] 0.6 mg PO BID #2 tab Patient Education Materials: Cellulitis (ED), Ingrown Nail (ED), Osteoarthritis (ED) Referrals: Daxa James MD [Primary Care Provider] - 2 Days Be Brady MD [Medical Doctor] - 2 Days Additional Instructions: 1-Please take full course of Antibiotic as directed . 2- Please close observation If redness and swelling doubles in size beyond after 48 hrs of taking antibiotic and fever or SOB, chest pain, develops please go to the ER immediately. 3-Avoid standing for long periods of time or flexing your foot, keep it elevated and keep wound clean and dry. soak your foot w/ Domeboro packets as directed. 4-Please F/u with your PCP in 2 days for further evaluation and treatment and to check symptoms are improving 5- Lab work sent to lab, you will be notified of any abdnormality. 6- Please f/u w/ Orthopedic Dr Brady in 2 days to make sure symptoms are improving or further management. - Billing Disposition and Condition Condition: STABLE Disposition: Home
[2018-06-15] MEDS ORDERED: Acetaminophen TAB* 325 MG PO ONE (10:43)
[2018-06-15 15:07] LABS: ABS Basophils 0 10^3/ul (0-0.2); ABS Eosinophils 0.1 10^3/ul (0-0.6); ABS Lymphocytes 0.2 10^3/ul (1.0-4.8); ABS Neutrophils 4.7 10^3/ul (1.5-7.7); ABS Nucleated RBC 0 10^3/ul; Eosinophil % 0.8 % (0-6); Hematocrit 35 % (35-47); Lymphocyte % 3.5 % (25-47); Mean Corpuscular HGB Conc 34 g/dl (31-36); Mean Corpuscular Hemoglobin 36 pg (27-31); Mean Corpuscular Volume 105 fL (80-97); Mean Platelet Volume 7.5 fL (7.4-10.4); Nucleated Red Blood Cells % 0.5; Platelet Count 184 10^3/ul (150-450); Red Blood Count 3.34 10^6/ul (4.00-5.40); Red Cell Distribution Width 12 % (10.5-15)
[2018-06-15 15:37] LABS: Uric Acid 1.8 mg/dL (2.3-6.6)
--- NOTE | 2018-06-16 09:20 | ED ---
Progress - Progress Note Progress Note: Lab review today wound culture and Gram stain: Negative for MRSA or staph aureus culture is still pending Patient is on Keflex. Plan no change Other labs reviewed are abnormal with slightly high MCV and slight electrolyte abnormalities with mild hyponatremia and low chloride along with slightly high carbon dioxide CRP is 75.46 RN to call patient inform her of the lab results, she should follow with primary care doctor in regards to concerning high MCV and possible megaloblastic anemia Due to folate or B12 deficiency and also repeat lab testing for electrolyte abnormalities. If she is not feeling right, she should go to ER for further evaluation Discharge - Sign-Out/Discharge Documenting (check all that apply): Post-Discharge Follow Up All imaging exams completed and their final reports reviewed: Yes - Discharge Plan Condition: Stable Disposition: HOME Prescriptions: Acetaminophen TAB* [Tylenol TAB*] 650 mg PO Q6H PRN #30 tab PRN Reason: Pain Aluminum Sulf/Ca Acetate SALOMON* [[place]ome[place] SALOMON*] 1 applic TOPICAL TID #1 box Cephalexin CAP* [Keflex CAP*] 500 mg PO QID #28 cap Colchicine* [Colcrys*] 0.6 mg PO BID #2 tab Patient Education Materials: Cellulitis (ED), Ingrown Nail (ED), Osteoarthritis (ED) Referrals: Daxa James MD [Primary Care Provider] - 2 Days Be Brady MD [Medical Doctor] - 2 Days Additional Instructions: 1-Please take full course of Antibiotic as directed . 2- Please close observation If redness and swelling doubles in size beyond after 48 hrs of taking antibiotic and fever or SOB, chest pain, develops please go to the ER immediately. 3-Avoid standing for long periods of time or flexing your foot, keep it elevated and keep wound clean and dry. soak your foot w/ Domeboro packets as directed. 4-Please F/u with your PCP in 2 days for further evaluation and treatment and to check symptoms are improving 5- Lab work sent to lab, you will be notified of any abdnormality. 6- Please f/u w/ Orthopedic Dr Brady in 2 days to make sure symptoms are improving or further management. - Billing Disposition and Condition Condition: STABLE Disposition: Home
== END 2018-06-15 12:20 | disposition home or self-care (01) ==
LOC: UCEAST 08:54
DX: M79.675 Pain in left toe(s) (principal); I10 Essential (primary) hypertension; Z88.5 Allergy status to narcotic agent; Z88.8 Allergy status to other drugs, medicaments and biological substances
CPT/HCPCS: 36415; 80048; 84550; 85025; 86140; 87070; 87077; 87186; 87205; 87640; 87641; 99212; A9270-GY; G0463

== ENCOUNTER 2018-08-27 07:59 | Day surgery (SDC) | payer MEDICARE ==
[~2018-08-27 07:59] MED LIST: Acetaminophen TAB* 325 MG PO PRN; Buffered Lidocaine 1% SYRIN* 1 ML/SYRINGE INTRADERM ONE; Cyclopentolate 1% OPTH.SOL* 2 ML BTL ONE; Ketorolac 0.5% OPHTH (NF) 0.5 % 5 ML BTL ONE; Lidocaine 1%* 5 ML VIAL ONE; Neomycin/Polymy/Dex OPHTH.OIN* 3.5 GM ONE; Phenylephrine 2.5% OPTH.SOL* 2 ML BTL ONE; Tetracaine 0.5% OPTH.SOL 4 ML* 1 DROP BTL ONE; Tropicamide 1% OPTH.SOL* BTL ONE
[2018-08-27] MEDS ORDERED: Midazolam* 1 MG/ML 2 ML VIAL (2 MG) ONE (08:57)
[2018-08-27] MEDS ORDERED: fentaNYL* 50 MCG/ML 2 ML VIAL (100 MCG VIAL) ONE (08:57)
[2018-08-27] MEDS ORDERED: Lidocaine 2% PF * 5 ML VIAL ONE (09:26)
[2018-08-27] MEDS ORDERED: Propofol* 10 MG/ML 20 ML BTL ONE (09:26)
[2018-08-27 10:02] VITALS: BP 115/58
[2018-08-27] MEDS ORDERED: Phenylephr/Ketorolac 1%/0.3% OPH DROP BTL ONE (13:24)
--- NOTE | 2018-08-27 20:14 | OP ---
DATE OF OPERATION: 08/27/18 [facility] DATE OF : 49 SURGEON: Israel Olsen MD. LAUNDRY SORTER: None. ANESTHESIA: Topical with intravenous sedation. PRE-OP DIAGNOSIS: Cataract, right eye. POST-OP DIAGNOSIS: Cataract, right eye. OPERATIVE PROCEDURE: Phacoemulsification and cataract extraction with posterior chamber intraocular lens implant, right eye. COMPLICATIONS: None. BLOOD LOSS: None. DESCRIPTION OF PROCEDURE: The patient was brought to the operating room and received a small amount of intra-venous sedation. A drop of Tetracaine was placed in her right eye. She was prepped and draped in the usual sterile fashion for ophthalmic surgery and attention was directed to the right eye where a speculum was placed. A paracentesis was created at the 11 o'clock position and 0.1 cc of 1 percent preservative-free Lidocaine was injected into the anterior chamber followed by DisCoVisc. The eye was digitally stabilized while a 2.75 mm keratome was used to create a triplanar clear corneal incision at the 9 o'clock position. A continuous curvilinear capsulorrhexis was created with a cystotome and Utrata forceps. BSS on a cannula was used to hydrodissect the lens from the capsule. Phacoemulsification was performed in a divide-and- conquer technique to create four fragments which were removed. Residual cortical material was removed with irrigation and aspiration. DisCoVisc was used to inflate the capsular bag and an AU00T0 24.0 diopter lens was folded and inserted into the capsular bag. DisCoVisc was removed using irrigation and aspiration. BSS on a cannula was used to hydrate the corneal stroma and seal the wound. At the end of the case the pupil was round and the lens was centered. The eye was of normal pressure and the wound was water tight. The speculum was removed and topical Maxitrol ointment was placed on the surface of the eye. The eye was closed, patched and shielded and the patient was sent to the recovery room in stable condition with post operative instructions and follow-up appointment given. [id number]/CPS #: [id number] MENDOZA
== END 2018-08-27 10:10 | disposition home or self-care (01) ==
LOC: OREAST 07:59
PROVIDERS: ATTEND Ophthalmology
DX: H25.11 Age-related nuclear cataract, right eye (principal); I10 Essential (primary) hypertension; J44.9 Chronic obstructive pulmonary disease, unspecified; I25.10 Atherosclerotic heart disease of native coronary artery without angina pectoris; I25.2 Old myocardial infarction; Z87.891 Personal history of nicotine dependence; E03.9 Hypothyroidism, unspecified; F41.9 Anxiety disorder, unspecified; Z85.819 Personal history of malignant neoplasm of unspecified site of lip, oral cavity, and pharynx
CPT/HCPCS: A9270-GY; C9447; J2250; J2704; J3010; V2632

== ENCOUNTER 2018-09-03 06:23 | Day surgery (SDC) | payer MEDICARE ==
[~2018-09-03 06:23] MED LIST changes: -Cyclopentolate 1% OPTH.SOL* 2 ML BTL ONE; -Ketorolac 0.5% OPHTH (NF) 0.5 % 5 ML BTL ONE; -Lidocaine 1%* 5 ML VIAL ONE; -Neomycin/Polymy/Dex OPHTH.OIN* 3.5 GM ONE; -Phenylephrine 2.5% OPTH.SOL* 2 ML BTL ONE; -Tetracaine 0.5% OPTH.SOL 4 ML* 1 DROP BTL ONE; -Tropicamide 1% OPTH.SOL* BTL ONE
[2018-09-03] MEDS ORDERED: Propofol* 10 MG/ML 20 ML BTL ONE (07:13)
[2018-09-03] MEDS ORDERED: Lidocaine 2% PF * 5 ML VIAL ONE (07:13)
[2018-09-03 08:32] VITALS: BP 116/71
--- NOTE | 2018-09-03 09:29 | OP ---
DATE OF OPERATION: 09/03/18 [facility] DATE OF : 49 SURGEON: Dr. Israel Olsen. [employer] OPERATOR: None. ANESTHESIA: Topical with intravenous sedation. PRE-OP DIAGNOSIS: Cataract, left eye. POST-OP DIAGNOSIS: Cataract, left eye. OPERATIVE PROCEDURE: Phacoemulsification and cataract extraction with posterior chamber intraocular lens implant, left eye. COMPLICATIONS: None. BLOOD LOSS: None. DESCRIPTION OF PROCEDURE: The patient was brought to the operating room and received a small amount of intravenous sedation. A drop of Tetracaine was placed in her left eye. She was prepped and draped in the usual sterile fashion for ophthalmic surgery and attention was directed to the left eye where a speculum was placed. A paracentesis was created at the 5 o'clock position and 0.1 cc of 1% preservative-free lidocaine was injected into the anterior chamber followed by DisCoVisc. The eye was digitally stabilized while a 2.75 mm keratome was used to create a triplanar clear corneal incision at the 3 o' clock position. A continuous curvilinear capsulorrhexis was created with a cystotome and Utrata forceps. BSS on a cannula was used to hydrodissect the lens from the capsule. Phacoemulsification was performed in a divide-and- conquer technique to create four fragments which were removed. Residual cortical material was removed with irrigation and aspiration. DisCoVisc was used to inflate the capsular bag and an AU00T0 24.0 diopter lens was folded and inserted into the capsular bag. DisCoVisc was removed using irrigation and aspiration. BSS on a cannula was used to hydrate the corneal stroma and seal the wound. At the end of the case the pupil was round and the lens was centered. The eye was of normal pressure and the wound was water tight. The speculum was removed and topical Maxitrol ointment was placed on the surface of the eye. The eye was closed, patched and shielded and the patient was sent to the recovery room in stable condition with post operative instructions and follow-up appointment given. [id number]/CPS #: [id number] MENDOZA
[2018-09-03] MEDS ORDERED: Ketorolac 0.5% OPHTH (NF) 0.5 % 5 ML BTL ONE (15:24)
[2018-09-03] MEDS ORDERED: Tetracaine 0.5% OPTH.SOL 4 ML* 1 DROP BTL ONE (15:24)
[2018-09-03] MEDS ORDERED: Cyclopentolate 1% OPTH.SOL* 2 ML BTL ONE (15:24)
[2018-09-03] MEDS ORDERED: Phenylephrine 2.5% OPTH.SOL* 2 ML BTL ONE (15:24)
[2018-09-03] MEDS ORDERED: Neomycin/Polymy/Dex OPHTH.OIN* 3.5 GM ONE (15:24)
[2018-09-03] MEDS ORDERED: Tropicamide 1% OPTH.SOL* BTL ONE (15:24)
[2018-09-03] MEDS ORDERED: Lidocaine 1%* 5 ML VIAL ONE (15:24)
[2018-09-03] MEDS ORDERED: Phenylephr/Ketorolac 1%/0.3% OPH DROP BTL ONE (15:25)
== END 2018-09-03 08:20 | disposition home or self-care (01) ==
LOC: OREAST 06:23
PROVIDERS: ATTEND Ophthalmology
DX: H25.12 Age-related nuclear cataract, left eye (principal); Z87.891 Personal history of nicotine dependence; I10 Essential (primary) hypertension; I25.10 Atherosclerotic heart disease of native coronary artery without angina pectoris; I25.2 Old myocardial infarction; J44.9 Chronic obstructive pulmonary disease, unspecified; E03.9 Hypothyroidism, unspecified; F41.9 Anxiety disorder, unspecified; Z85.819 Personal history of malignant neoplasm of unspecified site of lip, oral cavity, and pharynx; D72.819 Decreased white blood cell count, unspecified
CPT/HCPCS: A9270-GY; C9447; J2704; V2632

== ENCOUNTER 2019-01-02 21:58 | Inpatient (IN) | payer MEDICARE ==
--- NOTE | 2019-01-02 22:32 | ED ---
Adult Trauma - HPI Summary HPI Summary: A 73 y/o female brought in by [facility] ambulance presents to [facility] with a chief complaint of right hip pain post fall at 19:00. The patient notes that she lost her balance and fell. Per , after the patient fell and hit her head on the tile floor, she lost consciousness for about 3 minutes, and then was coherent a few minutes after regaining consciousness. She was able to walk but was in a lot of pain. At triage, she rated her pain as an 8/10 in severity. The patient denies taking steroids or blood thinners. The patient uses O2 at home for COPD. - History of Current Complaint Chief Complaint: EDFall Stated Complaint: FALL PER EMS Time Seen by Provider: 01/02/19 22:07 Hx Obtained From: Patient, Family/Curator Of Collections, EMS Hx Last Menstrual Period: 07/30/1999 Mechanism of Injury: Fall Onset/Duration: Started Minutes Ago, Still Present Onset of Pain: Immediate, Post Accident, Prior to Arrival Onset Severity: Severe Current Severity: Severe Pain Intensity: 8 Pain Scale Used: 0-10 Numeric Location: Other - right hip Aggravating Factor(s): Nothing Alleviating Factor(s): Nothing Associated Signs & Symptoms: Positive: Loss of Consciousness. Negative: Fever - Additional Pertinent History Primary Care Physician: [id number] - Allergy/Home Medications Allergies/Adverse Reactions: Allergies Allergy/AdvReac Type Severity Reaction Status Date / Time bupropion Allergy Rash Verified 01/02/19 22:14 doxycycline Allergy Abdominal Verified 01/02/19 22:14 Pain levofloxacin Allergy Swelling Verified 01/02/19 22:14 zonisamide Allergy decreases Verified 01/02/19 22:14 WBCs ciprofloxacin AdvReac Muscle Ache Verified 01/02/19 22:14 levetiracetam [From Keppra] AdvReac decreases Verified 01/02/19 22:14 WBCs lorazepam [From Ativan] AdvReac Altered Verified 01/02/19 22:14 Mental Status morphine AdvReac Hallucinati Verified 01/02/19 22:14 ons nifedipine [From Procardia] AdvReac Rash Verified 01/02/19 22:14 topiramate AdvReac Tachycardia Verified 01/02/19 22:14 PMH/Surg Hx/FS Hx/Imm Hx Endocrine/Hematology History: Reports: Hx Thyroid Disease - radiation induced hypothyrodism Denies: Hx Anticoagulant Therapy, Hx Blood Disorders, Hx Bone Marrow Disease , Hx Diabetes, Hx Systemic Lupus Erythematosus, Hx Sickle Cell Disease, Hx Anemia, Hx Unexplained Bleeding, Other Endocrine/Hematological Disorders Cardiovascular History: Reports: Hx Hypercholesterolemia - previously, Hx Hypertension, Other Cardiovascular Problems/Disorders - Raynauds disease of heart, hands and feet, severe Denies: Hx Aneurysm, Hx Angina, Hx Angioplasty, Hx Auto Implanted Cardiovert Defib, Hx Cardiac Arrest, Hx Cardiomegaly, Hx Congenital Heart Disease, Hx Congestive Heart Failure, Hx Coronary Artery Disease, Hx Deep Vein Thrombosis, Hx Embolism, Hx Hypotension, Hx Pacemaker/ICD, Hx Peripheral Vascular Disease, Hx Rheumatic Fever, Hx Syncope, Hx Valvular Heart Disease Respiratory History: Reports: Hx Chronic Bronchitis, Hx Chronic Obstructive Pulmonary Disease (COPD) - 2L O2 at all times NEGATIVE CHECKER, Hx Pneumonia, Other Respiratory Problems/Disorders - PT STATES STRONG FAMILY HX OF GENETIC BASED EMPHYSEMA Denies: Hx Asthma, Hx Cystic Fibrosis, Hx Lung Cancer, Hx Pleural Effusion, Hx Pulmonary Edema, Hx Pulmonary Embolism, Hx Sleep Apnea GI History: Reports: Hx Gastrointestinal Bleed - 2007, Hx Obstructive Bowel - "twisted intestine", Other GI Disorders - colitis Denies: Hx Cirrhosis, Hx Crohn's Disease, Hx Diverticulosis, Hx Gall Bladder Disease, Hx Gastroesophageal Reflux Disease, Hx Hiatal Hernia, Hx Irritable Bowel, Hx Jaundice, Hx Ileostomy, Hx Pyloric Stenosis, Hx Ulcer History: Denies: Hx Acute Renal Failure, Hx Benign Prostatic Hyperplasia, Hx Chronic Renal Failure, Hx Dialysis, Hx Kidney Infection, Hx Kidney Stones, Hx Renal Disease, Other Problems/Disorders Musculoskeletal History: Denies: Hx Arthritis, Hx Rheumatoid Arthritis, Hx Back Problems, Hx Bursitis , Hx Congenital Bone Abnormalities, Hx Fibromyalgia, Hx Gout, Hx Orthopedic Injury, Hx Osteoporosis, Hx Scoliosis, Hx Tendonitis, Other Musculoskeletal History Sensory History: Reports: Hx Cataracts, Hx Contacts or Glasses Denies: Hx Eye Injury, Hx Eye Prosthesis, Hx Glaucoma, Hx Legally Blind, Hx Macular Degeneration, Hx Vision Problem, Hx Deafness, Hx Hearing Aid, Hx Hearing Problem, Other Sensory Impairments Opthamlomology History: Reports: Hx Cataracts, Hx Contacts or Glasses Denies: Hx Eye Injury, Hx Eye Prosthesis, Hx Glaucoma, Hx Legally Blind, Hx Macular Degeneration, Hx Vision Problem, Other Sensory Impairments Neurological History: Reports: Hx Seizures - 2006 febrile Denies: Hx Dementia, Hx Developmental Delay, Hx Headaches, Hx Migraine, Hx Nerve Disease, Hx Spinal Cord Injury, Hx Transient Ischemic Attacks (TIA), Other Neuro Impairments/Disorders Psychiatric History: Reports: Hx Anxiety - when SOB Denies: Hx Attention Deficit Hyperactivity Disorder, Hx Eating Disorder, Hx Depression, Hx Panic Disorder, Hx Post Traumatic Stress Disorder, Hx Inpatient Treatment, Hx Community Mental Health Tx, Hx Schizophrenia, Hx Bipolar Disorder , Hx Suicide Attempt, Hx of Violent Episodes Against Others, Hx Substance Abuse , Other Psychiatric Issues/Disorders - Cancer History Cancer Type, Location and Year: . neoplasm malignant left mouth/tongue salivary gland 2011 Hx Chemotherapy: No Hx Radiation Therapy: Yes - 2013 Hx Palliative Cancer Treatment: No - Surgical History Surgery Procedure, Year, and Place: 08/27/13 - BIOPSY UNDER TONGUE [id number], salivary gland and lymph node removed from left neck. [facility]. bilat hips and shoulder repaired. Hx Anesthesia Reactions: No Infectious Disease History: No Infectious Disease History: Denies: Hx Hepatitis, Hx Human Immunodeficiency Virus (HIV), Hx Tuberculosis , History Other Infectious Disease, Traveled Outside the [place] in Last 30 Days - Family History Known Family History: Positive: Cardiac Disease Negative: Hypertension - Social History Alcohol Use: Daily Alcohol Amount: 2-3 GLASSES/DAY Hx Substance Use: No Substance Use Type: Reports: None Hx Tobacco Use: Yes Smoking Status (MU): Former Smoker Type: Cigarettes Amount Used/How Often: 45 years Length of Time of Smoking/Using Tobacco: 07/30/2011 Have You Smoked in the Last Year: No Review of Systems Negative: Fever Positive: Arthralgia - right hip pain, Other - negative: shoulder pain, neck pain Neurological: Other - positive: LOC, fell due to loss of balance All Other Systems Reviewed And Are Negative: Yes Physical Exam - Summary Physical Exam Summary: VITAL SIGNS: Reviewed. GENERAL: Patient is a well-developed and nourished FEMALE who is lying comfortable in the stretcher. Patient is not in any acute respiratory distress. HEAD AND FACE:Ecchymosis and swelling over right mandaeism and orbital area. EYES: PERRLA, EOMI x 2, No injected conjunctiva, no nystagmus. EARS: Hearing grossly intact. Ear canals and tympanic membranes are within normal limits. MOUTH: Oropharynx within normal limits. NECK: Supple, trachea is midline, no adenopathy, no JVD, no carotid bruit, no c- spine tenderness, neck with full ROM CHEST: Symmetric, no tenderness at palpation LUNGS: Clear to auscultation bilaterally. No wheezing or crackles. CVS: Regular rate and rhythm, S1 and S2 present, no murmurs or gallops appreciated. ABDOMEN: Soft, non-tender. No signs of distention. No rebound no guarding, and no masses palpated. Bowel sounds are normal. EXTREMITIES: tenderness of hip, decreased ROM secondary to pain, ecchymosis over right shoulder, neurovascularly intact. NEURO: Alert and oriented x 3. No acute neurological deficits. Speech is normal and follows commands. SKIN: Dry and warm Triage Information Reviewed: Yes Vital Signs On Initial Exam: Initial Vitals Temp Pulse Resp BP Pulse Ox 97.0 F 89 18 115/67 100 01/02/19 22:09 01/02/19 22:09 01/02/19 22:09 01/02/19 22:09 01/02/19 22:09 Vital Signs Reviewed: Yes - [place] Coma Scale Best Eye Response: 4 - Spontaneous Best Motor Response: 6 - Obeys Commands Best Verbal Response: 5 - Oriented Coma Scale Total: 15 Diagnostics - Vital Signs Vital Signs Temp Pulse Resp BP Pulse Ox 01/02/19 22:09 97.0 F 89 18 115/67 100 - Laboratory Result Diagrams: 01/03/19 01:08 01/03/19 01:08 Lab Statement: Any lab studies that have been ordered have been reviewed, and results considered in the medical decision making process. - Radiology shoulder x-ray Radiology Interpretation Completed By: ED Physician Summary of Radiographic Findings: No fracture. Pending official imaging report. hip/pelvis x-ray Radiology Interpretation Completed By: ED Physician Summary of Radiographic Findings: Right superior ramus fracture. Pending official imaging report. - CT maxillofacial CT Interpretation Completed By: Radiologist Summary of CT Findings: 1. There is right facial and right periorbital contusion. 2. No acute maxillofacial fracture. ED physician has reviewed this imaging report. brain CT Interpretation Completed By: Radiologist Summary of CT Findings: 1. There is age-related diffuse cerebral and cerebellar volume loss and chronic. microvascular ischemic disease. 2. There is right periorbital contusion. 3. No acute intracranial pathology. ED physician has reviewed this imaging report. Adult Trauma Course/Dx - Course Course Of Treatment: A 73 y/o female brought in by [facility] ambulance presents to [facility] with a chief complaint of right hip pain post fall at 19:00. The patient notes that she lost her balance and fell. Per , after the patient fell and hit her head on the tile floor, she lost consciousness for about 3 minutes, and then was coherent a few minutes after regaining consciousness. The physical exam revealed ecchymosis and swelling over right mandaeism and orbital area, tenderness of hip, decreased ROM secondary to pain, ecchymosis over right shoulder, neurovascularly intact. In the ED course the patient was given Ultram PO, Percocet PO and fentanyl IV. Bloodwork and chemistries obtained. Shoulder x- ray showed no fracture and hip/pelvis x-ray showed right superior ramus fracture. Maxillofacial CT impression: 1. There is right facial and right periorbital contusion. 2. No acute maxillofacial fracture. Brain CT impression : 1. There is age-related diffuse cerebral and cerebellar volume loss and chronic. microvascular ischemic disease. 2. There is right periorbital contusion. 3. No acute intracranial pathology. Case discussed with Dr. Badillo, hospitalist, who accepted the patient for admission. The patient is agreeable with this plan. - Diagnoses Provider Diagnoses: Contusion, Pelvic fracture - Physician Notifications Discussed Care Of Patient With: Be Badillo Time Discussed With Above Provider: 01:49 Instructed by Provider To: Admit As Inpatient Discharge - Sign-Out/Discharge Documenting (check all that apply): Patient Departure - admit Patient Received Moderate/Deep Sedation with Procedure: No - Discharge Plan Condition: Fair Disposition: ADMITTED TO [facility] - Billing Disposition and Condition Condition: FAIR Disposition: Admitted to [facility] - Attestation Statements Document Initiated by Nathanielibe: Yes Documenting Scribe: Ashu Clements Provider For Whom Titus is Documenting (Include Credential): Olivia Bermudez MD Scribmissy Attestation: Ashu Roberts scribed for Olivia Bermudez MD on 01/03/19 at 0548. Scribe Documentation Reviewed: Yes Provider Attestation: The documentation as recorded by the Ashu wilson accurately reflects the service I personally performed and the decisions made by me, Olivia Bermudez MD Status of Scribe Document: Viewed
[2019-01-02] MEDS ORDERED: traMADol TAB* 50 MG PO ONE (22:39)
[2019-01-02] MEDS ORDERED: oxyCODONE/Acetamin 5/325 MG* TAB PO ONE (22:43)
[2019-01-03] MEDS ORDERED: fentaNYL* 50 MCG/ML 2 ML VIAL (100 MCG VIAL) IV SLOW PU ONE (00:37)
[2019-01-03 01:15] LABS: ABS Lymphocytes 0.3 10^3/ul (1.0-4.8); ABS Monocytes 0.8 10^3/ul (0-0.8); ABS Neutrophils 9.4 10^3/ul (1.5-7.7); Eosinophil % 0.3 %; Hematocrit 34 % (35-47); Hemoglobin 11.5 g/dL (12.0-16.0); Lymphocyte % 2.9 %; Mean Corpuscular HGB Conc 34 g/dL (31-36); Mean Corpuscular Hemoglobin 35 pg (27-31); Mean Corpuscular Volume 103 fL (80-97); Mean Platelet Volume 7.3 fL (7.4-10.4); Platelet Count 111 10^3/uL (150-450); Red Blood Count 3.33 10^6 /uL (3.70-4.87); Red Cell Distribution Width 12 % (10-15); White Blood Count 10.6 10^3/uL (3.5-10.8)
[2019-01-03 01:29] LABS: INR 1.17 (0.82-1.09)
[2019-01-03 01:34] LABS: Albumin 3.1 g/dL (3.2-5.2); Albumin/Globulin Ratio 1.1 (1-3); BUN/Creatinine Ratio 42.9 (8-20); Calcium 8.5 mg/dL (8.6-10.3); EGFR Non-African American 148.7 (>60); Globulin 2.7 g/dL (2-4); Total Bilirubin 0.7 mg/dL (0.2-1.0); Total Protein 5.8 g/dL (6.4-8.9)
[2019-01-03] MEDS ORDERED: NS 0.9% 500 ML* 500 ML IV ONE (01:46)
[2019-01-03] MEDS ORDERED: Ondansetron INJ* 2 MG/ML VIAL IV PRN (03:41)
[2019-01-03] MEDS ORDERED: Albuterol 2.5 MG/3 ML NEB.SOL* (0.083%) INH PRN (03:41)
[2019-01-03] MEDS ORDERED: oxyCODONE/Acetamin 5/325 MG* TAB PO PRN (03:49)
[2019-01-03] MEDS ORDERED: Albuterol/Ipratropium NEB.SOL* Albuterol 2.5 MG/Ipratropium 0.5 MG 3 ML INH PRN (03:50)
[2019-01-03] MEDS ORDERED: HYDROmorphone INJ1* 1 MG/ML SYRINGE IV SLOW PU PRN (05:10)
[2019-01-03] MEDS: Mometasone/Formoter 200/5 MDI INH SCH ×3 (05:27→19:21)
[2019-01-03] MEDS: Levothyroxine TAB* 50 MCG TAB PO SCH (05:28)
[2019-01-03 05:49] LABS: Folate 19.42 ng/mL (>3.99)
--- NOTE | 2019-01-03 07:55 | HP ---
CC: Dr. Daxa James * HISTORY AND PHYSICAL: DATE OF ADMISSION: 01/03/19 PRIMARY CARE PROVIDER: Dr. Daxa James. ATTENDING PHYSICIAN: Dr. Be Badillo * (dictated by Juju Trevino NP). CHIEF COMPLAINT: Right hip pain. HISTORY OF PRESENT ILLNESS: Ms. Cabello is a 73-year-old female with past medical history of COPD, on 2 L; CAD; hypertension; anxiety; and depression, who presents to the emergency room today after sustaining a mechanical fall at home. The patient reports that she lost her balance while ambulating in her house. She remembers losing her balance and remembers trying to catch herself, but was unable. She fell on her right side according to her and did lose consciousness for approximately 3 minutes. She did strike her head and was incontinent of urine during that time. Once the patient regained consciousness, she has full memory of the events thereafter. She remembers waking with her next to her and remembers coming into the emergency room via EMS. Prior to this fall, she has been in her normal state of health. She denies any fever, anorexia, chest pain, cough, shortness of breath, nausea, vomiting, diarrhea, urinary complaints, or neurological deficits. She does endorse some lower extremity edema, which she says has been going on intermittently. In the emergency room, the patient was noted to have normal vitals. She had lab work, which was remarkable for a very mild anemia, improved from her baseline. Mild hyponatremia consistent with her baseline and very mildly elevated AST and ALT. She had imaging which was remarkable for a right superior ramus fracture, for which she complained of significant pain and inability to ambulate. On my exam, the patient denies any pain while lying still, though notes that she would experience pain if attempting to move her right leg. Due to this fracture, severe pain, and inability to ambulate, the hospitalist service was asked to evaluate for admission. PAST MEDICAL HISTORY: 1. COPD 2. Chronic hypoxic respiratory failure, on 2 L continuously. 3. Hypertension. 4. Coronary artery disease. 5. Hypothyroidism. 6. Anxiety. 7. Depression. 8. Raynaud's. 9. Oral cancer, status post radiation in 2013. PAST SURGICAL HISTORY: 1. Left hip ORIF in 2016. 2. Right hip hemiarthroplasty in 2018. 3. Oral cancer and lymph node resection in 2013. HOME MEDICATIONS: 1. DuoNeb 1 neb daily p.r.n. 2. Combivent Respimat 2 puffs q.6 hours p.r.n. shortness of breath and wheezing. 3. Alprazolam 0.5 mg p.o. t.i.d. 4. Atorvastatin 10 mg p.o. q.p.m. 5. Symbicort 160/4.5 two puffs b.i.d. 6. Irbesartan 300 mg p.o. daily. 7. Levothyroxine 50 mcg p.o. daily 8. Metoprolol succinate 100 mg p.o. daily. 9. Sertraline 50 mg p.o. daily. ALLERGIES: BUPROPION, DOXYCYCLINE, LEVOFLOXACIN, ZONISAMIDE, CIPROFLOXACIN, KEPPRA, ATIVAN, MORPHINE, NIFEDIPINE, TOPIRAMATE. FAMILY HISTORY: The patient's mother had a history of COPD and hypertension. Her father had a history of CHF, hypertension, and COPD. She reports that both of her parents were heavy smokers. SOCIAL HISTORY: The patient quit smoking in 2011, though smoked approximately half a pack per day for 30 years. She does report drinking approximately 2 to 3 alcoholic drinks per day. She denies any recreational drug use. She is retired and lives at home with her Eloy who would be her surrogate decision maker in the event she is unable to make her own decisions. REVIEW OF SYSTEMS: An 11-point review of systems was performed and all the pertinent positive and negative findings are in the HPI, all other systems are negative. PHYSICAL EXAMINATION GENERAL: Ms. Cabello is a well-developed, well-nourished, completely underweight elderly white woman, sitting in bed, in no acute distress. She appears her stated age. VITAL SIGNS: Temp 99.4, heart rate 82, respiratory rate 18, oxygen saturation 97% on 2 L, blood pressure 127/74. HEENT: Head is atraumatic, normocephalic. Visual kelly are grossly intact. Pupils equal, round, and reactive to light and accommodation. Extraocular movements intact. Hearing is grossly intact. Oral mucous membranes are moist and without lesions. Pharynx is clear. NECK: Full range of motion. Thyroid not palpable. Trachea midline. No lymphadenopathy. RESPIRATORY: Symmetrical chest expansion. No chest wall deformities. Lungs diminished to auscultation throughout. No rhonchi, wheezes, or rales. CARDIOVASCULAR: Regular rate and rhythm. S1, S2 present. No murmurs, rubs, or gallops. No JVD. ABDOMEN: Soft, nontender to palpation. Bowel sounds normoactive throughout. EXTREMITIES: Skin warm and smooth bilaterally. No clubbing or cyanosis. Pedal pulses 2+ bilaterally. There is 1+ pitting edema to the right ankle. MUSCULOSKELETAL: Full range of motion of bilateral upper extremities and left lower extremity. Right lower extremity movement is impaired due to pain. NEURO: Awake, alert, and oriented x4. Cranial nerves II through XII grossly intact. Moves all extremities. SKIN: There is bruising to the right forehead, an abrasion to the right shoulder, and a bruise to the right elbow. Skin is otherwise intact. DIAGNOSTIC STUDIES/LAB DATA: WBC 10.6, RBC 3.33, hemoglobin 11.1, hematocrit 34, platelets 111. INR 1.17. Sodium 130, potassium 4.0, chloride 94, carbon dioxide 29, BUN 18, creatinine 0.42, glucose 125, AST 84, ALT 55. Brain CT read as there is age-related, diffuse cerebral and cerebellar volume loss and chronic microvascular ischemic disease. There is right periorbital contusion. No acute intracranial pathology. Maxillofacial CT read as: there is right facial and right periorbital contusion. No acute maxillofacial fracture. Right shoulder x-rays read by the ED physician as: no fracture. Right hip and pelvis x-ray read by the ED physician as: right superior ramus fracture. ASSESSMENT AND PLAN: Ms. Cabello is a 73-year-old female with past medical history of chronic obstructive pulmonary disease, chronic hypoxic respiratory failure on 2 L, hypertension, coronary artery disease, hypothyroidism, anxiety and depression, who presents to the emergency room today after a mechanical fall and was found to have a right pelvic fracture and inability to ambulate. The patient will be admitted inpatient for: 1. Right pelvic fracture. On my exam, the patient reports that her pain is well controlled as long as she is not moving, although she does report that she is unable to stand and hardly able to move her leg at all due to pain. At this point, there is no need for an orthopedic consult as there would not be any surgical intervention. The plan right now will be to attempt to control the patient's pain. I have ordered PT and OT evaluation. I did speak with the patient and advised her that she will likely need a rehab stay due to her inability to ambulate. She is agreeable to this as she has been to rehab in the past and understands that at this point she would not be able to go home. The patient has reacted poorly to morphine in the past. So, at this point, I have ordered hydromorphone and Percocet for pain management as she does have an allergy to MORPHINE. 2. Anemia. The patient is noted to be very mildly anemic with an H and H of 11.5 and 34, which actually appears to be improved from 2018, although I will note that this is a macrocytic anemia with an MCV of 103. This combined with the patient's consumption of 2 to 3 alcoholic drinks per day makes me somewhat concerned for a B12 deficiency or folate anemia. I have ordered a vitamin B12 and folate level, which are pending at this time and will supplement her if necessary. I will also place her on thiamine, folic acid, and a multivitamin daily due to her daily alcohol consumption. 3. Hyponatremia. The patient is slightly hyponatremic with a sodium of 130 though this is consistent with her baseline dating back to at least 2017. So, we will continue to trend this, but I have no acute concerns. 4. Chronic obstructive pulmonary disease. The patient does not appear to be in exacerbation at this time. I will continue her on her DuoNeb and I have placed her on Dulera as her Symbicort is not formulary. 5. Chronic hypoxic respiratory failure. The patient is on her baseline of 2 L. I will note that during my exam the patient did desaturate into the mid 80s on 2 L when she was doing a lot of talking, though otherwise is saturating well , so I am not particularly concerned at this point. She does report that Dr. Castaneda, her diesel engine mechanic apprentice, has advised her that she can increase her oxygen if she feels necessary. 6. Coronary artery disease. I have no acute cardiac concerns at this point. I will continue atorvastatin and metoprolol. 7. Hypertension. The patient is normotensive in the emergency room. I will continue metoprolol and losartan. 8. Anxiety and depression. Continue sertraline and alprazolam. 9. Hypothyroidism. Continue levothyroxine. 10. FEN: The patient does not require any fluid resuscitation or electrolyte repletion at this point. I have ordered a heart healthy diet. 11. Code status: The patient wishes to be a full code. 12. DVT prophylaxis: According to the DVT risk assessment, the patient scores a 3, putting her at high risk. I have ordered Lovenox. TIME SPENT: Approximately 60 minutes was spent on this admission, greater than half of that time was spent [id number] with the patient obtaining my history, performing my physical exam, and reviewing the plan of care. The case has been reviewed with my attending Dr. Badillo, who is in agreement with the plan of care. JUJU TREVINO, IMPROVEMENT AUDITOR [id number]/[facility] #: [id number] [place]
[2019-01-03] MEDS ORDERED: Enoxaparin(*) 40 MG/0.4 ML SYR SUBCUT SCH (09:00)
[2019-01-03] MEDS: Metoprolol Succinate XL TAB* 100 MG PO SCH (11:56)
[2019-01-03] MEDS: Docusate CAP* 100 MG PO SCH ×2 (11:56→21:25)
[2019-01-03] MEDS: Sertraline* 50 MG TAB PO SCH (11:57)
[2019-01-03] MEDS: Multivitamins/Minerals TAB PO SCH (11:57)
[2019-01-03] MEDS: Losartan TAB* 25 MG PO SCH (11:57)
[2019-01-03] MEDS: ALPRAZolam TAB* 0.5 MG PO SCH ×3 (11:58→21:25)
[2019-01-03] MEDS: Folic Acid TAB* 1 MG PO SCH (11:59)
[2019-01-03] MEDS: Thiamine TAB* 100 MG TAB PO SCH (11:59)
--- NOTE | 2019-01-03 14:27 | PN ---
Subjective Date of Service: 01/03/19 Interval History: Pt seen with family at bedside. She continues to have pain with movement of R leg, c/o R lat hip and R groin pain. Family notes patient has relatively frequent falls and is unsteady on her feet at baseline. She refuses walker or other ambulatory assisting devices, despite fracture to R and L hip, as well as shoulder, due to fall. Currently, pt c/o intermittent cough, SOB, and wheeze, all of which she states is baseline and has not changed recently. She denies abd pain. Objective Active Medications: Acetaminophen (Tylenol Tab*) 650 mg PO Q4H PRN Albuterol (Ventolin 2.5 Mg/3 Ml Neb.Beulah*) 2.5 mg INH [id number] AWAKE PRN Albuterol/Ipratropium (Duoneb (Albuterol 2.5 Mg/Ipratropium 0.5 Mg)) 1 neb INH DAILY PRN Alprazolam (Xanax Tab*) 0.5 mg PO TID QI Atorvastatin Calcium (Lipitor*) 10 mg PO 1700 QI Docusate Sodium (Colace Cap*) 100 mg PO BID QI Enoxaparin Sodium (Lovenox(*)) 40 mg SUBCUT Q24H QI Folic Acid (Folvite Tab*) 1 mg PO DAILY QI Hydromorphone HCl (Dilaudid Inj1s*) 0.5 mg IV SLOW PU Q4H PRN Levothyroxine Sodium (Synthroid Tab*) 50 mcg PO DAILY@0600 QI Losartan Potassium (Cozaar Tab*) 100 mg PO QAM QI Metoprolol Succinate (Toprol Xl Tab*) 100 mg PO QAM QI Mometasone Furoate/Formoterol Fumar (Dulera 200/5 Mdi*) 2 puff INH BID QI; Protocol Multivitamins/Minerals (Theragran/Minerals Tab*) 1 tab PO DAILY QI Ondansetron HCl (Zofran Inj*) 4 mg IV Q4H PRN Oxycodone/Acetaminophen (Percocet 5/325 Tab*) 1 tab PO Q4H PRN Sertraline HCl (Zoloft*) 50 mg PO QAM QI Thiamine HCl (Vitamin B-1 Tab*) 100 mg PO DAILY QI Vital Signs: Temp Pulse Resp BP Pulse Ox 98.2 F 88 18 92/56 91 01/03/19 11:40 01/03/19 11:40 01/03/19 11:58 01/03/19 11:40 01/03/19 11:40 Oxygen Devices in Use Now: Nasal Cannula Appearance: Pt is sitting up in bed with HOB elevated. She appears to be in no acute distress. She is cooperative and appropriate. Eyes: No Scleral Icterus, PERRLA Ears/Nose/Mouth/Throat: NL Teeth, Lips, Gums, Mucous Membranes Moist Neck: NL Appearance and Movements; NL JVP, Trachea Midline Respiratory: Symmetrical Chest Expansion and Respiratory Effort, - - Faint diffuse end expiratory wheeze at end expiration Cardiovascular: NL Sounds; No Murmurs; No JVD, RRR, No Edema Abdominal: NL Sounds; No Tenderness; No Distention, No Hepatosplenomegaly Extremities: No Edema, - - TTP at R lat thigh. Painful ROM R leg. Distal sensation intact. Neurological: Alert and Oriented x 3 Result Diagrams: 01/03/19 01:08 01/03/19 01:08 Assess/Plan/Problems-Billing Assessment: 73 yof PMHx COPD, chronic resp hypoxic failure requiring 2L O2, HTN, CAD, hypothyroid, anxiety, depression, Reynaud's, h/o oral cancer presents with R superior pubic rami fracture s/p fall. - Patient Problems (1) Pelvis fracture, right Comment: -Ortho consulted -PT/OT with standing, and transfer; further instructions to be determined by ortho -Pain management (2) COPD (chronic obstructive pulmonary disease) Comment: -Slight end exp wheeze without change in cough, SOB, O2 requirements -Continue home nebulizers -Add Duoneb PRN (3) Anemia Comment: -Decrease in Hgb, above baseline -Macrocytic without B12, folate deficiency -Will continue to monitor (4) Hyponatremia Comment: -Chronic, stable -Continue to monitor (5) HTN (hypertension) Comment: - Normotensive - Continue metoprolol and valsartan. (6) CAD (coronary artery disease) Comment: - Continue statin (7) Hypothyroidism Comment: - Continue Levothyroxine. (8) Anxiety and depression Comment: -Continue sertraline, alprazolam (9) DVT prophylaxis Comment: - Lovenox (10) Full code status Comment: Status and Disposition: Inpatient. Discharge when stable. May need ROBINSON.
[2019-01-03] MEDS ORDERED: NS 0.9% 1000 ML** 500 ML IV ONE (16:10)
[2019-01-03] MEDS ORDERED: Atorvastatin* 10 MG TAB PO SCH (17:00)
--- NOTE | 2019-01-03 23:30 | CONS ---
ORTHOPEDIC CONSULT NOTE: DATE OF CONSULT: 01/03/19 CHIEF COMPLAINT: Right hip pain. HISTORY OF PRESENT ILLNESS: Ms. Cabello is a 73-year-old female known to me in the past for a right hip hemiarthroplasty in 2018. The patient had a fall in her home earlier today on 01/03/19. She lost he r balance and fell. She did strike her head, was incontinent of urine and lost consciousness. When she regained consciousness, she had full memory of events after that. The patient was brought to [facility] by ambulance. She was unable to walk after the fall because of 1010 right hip pa in. The patient also has some complaint of some right shoulder pain. Radiograph showed no obvious p eriprosthetic fracture around the right ORIF plate and screws of the shoulder. She did have the righ t hip hemiarthroplasty with the visible superior rami fracture. The patient was admitted to [facility] with inability to ambulate and for further evaluation after loss of consciousness and f all. PAST MEDICAL HISTORY: 1. COPD. 2. Chronic oxygen. 3. Chronic hypoxic respiratory failure. 4. Hypertension. 5. Coronary artery disease. 6. Hypothyroidism. 7. Anxiety. 8. Depression. 9. Raynaud's. 10. Oral cancer. PAST SURGICAL HISTORY: 1. Oral cancer and lymph node resection in 2013. 2. Right hip hemiarthroplasty in 2018. 3. Left hip ORIF 2017. HOME MEDICATIONS: 1. DuoNeb 1 neb daily. 2. Combivent 2 puffs q.6 hours p.r.n. 3. Alprazolam 0.5 mg p.o. t.i.d. 4. Atorvastatin 10 mg p.o. q.p.m. 5. Symbicort 160/4.5 two puffs b.i.d. 6. Irbesartan 300 mg p.o. daily. 7. Levothyroxine 50 mcg p.o. daily. 8. Metoprolol succinate 100 mg p.o. daily. 9. Sertraline 50 mg p.o. daily. ALLERGIES: BUPROPION, DOXYCYCLINE, LEVOFLOXACIN, ZONISAMIDE, CIPROFLOXACIN, KEPPRA, ATIVAN, MORPHINE , NIFEDIPINE, TOPIRAMATE. FAMILY HISTORY: COPD and hypertension, maternal. Paternal: CHF, hypertension and COPD. SOCIAL HISTORY: The patient lives with her . She has a 30-pack a year smoking history, but q uit in 2011. She has 2 to 3 alcoholic beverages per day and does have a questionable alcohol abuse h istory. No recreational drugs. She normally walks with a cane or independently. REVIEW OF SYSTEMS: Fourteen systems reviewed with the patient today. Positive for the fall, head tr auma, loss of consciousness, positive for right shoulder pain, right hip pain. Otherwise, the patien t reports review of systems is negative or not relevant. PHYSICAL EXAM: General: The patient is a thin cachectic-appearing female in no apparent distress. Her daughter and are at the bedside. She is alert and oriented x3. Positive mood, appropria te affect. Gait is not assessed. Vitals: Temperature 98.7, pulse 93, blood pressure 106/53. HEENT: She has periorbital ecchymosis on the left. Pupils equal and reactive to light. Chest: Unlabored breathing. Right upper extremity: The patient's skin is intact. No abrasions or open wounds. Sli ght tenderness along the deltoid muscle. 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 2+ palpable radial pulse. Right lower extremity: The patient's skin is intact. She points to pain in h er groin and over the greater trochanter. Skin is intact. Hip flexion 90 degrees with minimal pain distally 5/5 and good wrist flexion, plantar flexion, strength. Full sensation to light touch in the ulnar nerve distributions and 2+ palpable DP pulse. DIAGNOSTIC STUDIES/LAB DATA: Radiographs: Multiple plain films of the right shoulder showed no obvi ous fracture around the hardware. Multiple views of the right hip lupe showed no obvious periprosthe tic fracture. There is a superior rami fracture with minimal displacement, which is vertical. ASSESSMENT AND PLAN: Ms. Cabello is a 73-year-old female status post fall in her home with loss of consc iousness, head trauma, right shoulder and right hip pain. Visible fracture line, nondisplaced fracture of the superior rami, which is vertical in orientation. I find it an unusual singular fracture. I would recommend a CT scan to further evaluate the pelvis for other fractures. CT scan will help complete the picture and allow me to give a better weightbear ing recommendation. At this time, I recommend 50% weightbearing with a rolling walker at all times. Physical Therapy can start to mobilize the patient. We will obtain a CT scan and I will follow up w ith the patient tomorrow. The patient's family is interested in whether I feel she can go home or needs a rehab placement. I t hink we will let her progress with physical therapy guide us. Thank you for this orthopedic consultat ion. I will follow along. [id number]/[facility] #: [id number]
[2019-01-04] MEDS: Levothyroxine TAB* 50 MCG TAB PO SCH (05:56)
[2019-01-04 06:25] LABS: BUN/Creatinine Ratio 22.8 (8-20); Calcium 8.1 mg/dL (8.6-10.3); EGFR African American 126.5 (>60); EGFR Non-African American 104.6 (>60); Potassium 3.6 mmol/L (3.5-5.0)
[2019-01-04 07:24] LABS: Hematocrit 31 % (35-47); Hemoglobin 10.6 g/dL (12.0-16.0); Mean Corpuscular HGB Conc 34 g/dL (31-36); Mean Corpuscular Hemoglobin 35 pg (27-31); Mean Corpuscular Volume 103 fL (80-97); Mean Platelet Volume 7.5 fL (7.4-10.4); Platelet Count 87 10^3/uL (150-450); Red Blood Count 3.04 10^6 /uL (3.70-4.87); Red Cell Distribution Width 12 % (10-15); White Blood Count 4.6 10^3/uL (3.5-10.8)
[2019-01-04] MEDS: Mometasone/Formoter 200/5 MDI INH SCH ×2 (08:10→14:23)
[2019-01-04] MEDS: Acetaminophen TAB* 325 MG PO PRN ×2 (08:16→12:45)
--- NOTE | 2019-01-04 09:54 | PN ---
Progress Note - Progress Note Date of Service: 01/04/19 SOAP: Subjective: Pt. is alert, reports she wants to go home today. Objective: Vital Signs: Temp Pulse Resp BP Pulse Ox 98.4 F 81 18 106/59 91 01/04/19 07:23 01/04/19 08:12 01/04/19 08:12 01/04/19 07:23 01/04/19 08:12 Laboratory Results - last 24 hr 01/04/19 01/04/19 05:36 05:36 WBC 4.6 RBC 3.04 L Hgb 10.6 L Hct 31 L MCV 103 H MCH 35 H MCHC 34 RDW 12 Plt Count 87 L MPV 7.5 Sodium 133 L Potassium 3.6 Chloride 97 L Carbon Dioxide 31 Anion Gap 5 BUN 13 Creatinine 0.57 Est GFR ( Amer) 126.5 Est GFR (Non-Af Amer) 104.6 BUN/Creatinine Ratio 22.8 H Glucose 86 Calcium 8.1 L RLE - ttp over greater troch, distally nvi. thigh soft. Assessment: 73 yo F s/p fall with R superior rami fx Plan: 50 % WB RLE pt/ot awaiting final CT read d/w patient and family that if she does well with PT she can go home with VNS
[2019-01-04] MEDS: Thiamine TAB* 100 MG TAB PO SCH (10:06)
[2019-01-04] MEDS: ALPRAZolam TAB* 0.5 MG PO SCH ×2 (10:06→14:20)
[2019-01-04] MEDS: Metoprolol Succinate XL TAB* 100 MG PO SCH (10:06)
[2019-01-04] MEDS: Sertraline* 50 MG TAB PO SCH (10:06)
[2019-01-04] MEDS: Losartan TAB* 25 MG PO SCH (10:06)
[2019-01-04] MEDS: Folic Acid TAB* 1 MG PO SCH (10:07)
[2019-01-04] MEDS: Docusate CAP* 100 MG PO SCH (10:07)
[2019-01-04] MEDS: Multivitamins/Minerals TAB PO SCH (10:08)
[2019-01-04 11:43] VITALS: BP 102/48
[2019-01-04] MEDS ORDERED: Enoxaparin(*) 30 MG/0.3 ML SYR SUBCUT SCH (12:00)
--- NOTE | 2019-01-04 21:20 | DS ---
CC: Dr. Daxa James * DISCHARGE SUMMARY: DATE OF ADMISSION: 01/03/19 DATE OF DISCHARGE: 01/04/19 PRIMARY CARE PROVIDER: Dr. Daxa James. ATTENDING PHYSICIAN: Dr. Carmen Last * (dictated by VICKEY Pizarro). PRIMARY DIAGNOSES: 1. Fall. 2. Right superior and inferior pubic rami fracture. 3. Right symphysis pubis fracture. SECONDARY DIAGNOSES: 1. Hypertension. 2. Coronary artery disease. 3. Hypothyroidism. 4. Chronic hypoxic respiratory failure, 2 L O2 continuously. 5. Chronic obstructive pulmonary disease. 6. Anxiety. 7. Depression. 8. Raynaud's. 9. Oral cancer, status post radiation in 2013. STUDIES WHILE IN THE HOSPITAL: Head CT, 01/02/19, impression: Age-related diffuse cerebral and cerebellar volume loss and chronic microvascular ischemic disease. Right periorbital contusion. No acute intracranial pathology. Maxillofacial CT, 01/02/19, impression: Right facial and right periorbital contusion. No acute maxillofacial fracture. Hip/pelvis x-ray, 01/02/19, impression: Nondisplaced fracture of superior pubic ramus on the right. Right shoulder x-ray, impression: Status post internal fixation of proximal humerus. No acute osseous injury. Pelvis CT, 01/04/19, impression: Nondisplaced fracture of right superior and inferior pubic rami, right side symphysis pubis status post right hip hemiarthroplasty, status post operative reduction internal fixation of left intertrochanteric fracture. DISCHARGE MEDICATIONS: Home medications: 1. Albuterol/ipratropium 2.5/0.5 one inhalation daily p.r.n. 2. Combivent Respimat 2 puffs inhalation q.6 hours p.r.n. 3. Alprazolam 0.5 mg p.o. t.i.d., maximum daily dose 1.5 mg. 4. Atorvastatin 10 mg p.o. at 1700. 5. Symbicort 160/4.5 two puffs inhalation b.i.d. 6. Irbesartan 300 mg p.o. q.a.m. 7. Levothyroxine 50 mcg p.o. daily. 8. Metoprolol succinate 100 mg p.o. daily. 9. Sertraline 50 mg p.o. q.a.m. HISTORY OF PRESENT ILLNESS/HOSPITAL COURSE: Ms. Cabello is a 73-year-old female with past medical history of COPD, hypertension, coronary artery disease who presents to the ER on 01/03/19 with complaints of pelvic pain status post fall. She states that she lost her balance while ambulating at home. She fell on to the right side. There was loss of consciousness for approximately 3 minutes with head strike. In the ER, CT of the head was performed and revealed no bleed. The patient was admitted to the hospital due to a right pelvic fracture noted on CAT scan. She was admitted to receive physical therapy and occupational therapy. Dr. Castillo from [facility] was consulted, who recommended CT scan of the pelvis which was performed; after results, as above, were reported, Dr. Castillo recommended outpatient physical therapy and 50% weightbearing on the right lower extremity with the use of walker. The patient is agreeable to this. The patient is noted to have anemia, thrombocytopenia, and hyponatremia on admission. This appears to be chronic. This is a macrocytic anemia. B12 and folate were within normal limits. At discharge, the platelets have decreased some amount and it is recommended that she get a repeat CBC and follow up with her primary care regarding further management of macrocytic anemia and thrombocytopenia. She is also noted to have hyponatremia which is also chronic. This is likely due to alcohol abuse. At the time of discharge, the patient is eager to be discharged home. She has worked with Physical Therapy and is ambulating with a walker without difficulty. Again, she is eager to be discharged home. She denies chest pain, shortness of breath, abdominal pain, nausea, vomiting, diarrhea, constipation, or pain in the calves. She does not have pain with sitting but does have some amount of pain with ambulation, although she states this is greatly relieved with the use of a walker. She is reminded to be 50% weight-bearing with use of walker. She will be discharged home with walker and instructions to follow up with Physical Therapy. PHYSICAL EXAMINATION: General: Ms. Cabello is a well-developed, thin, malnourished 73- year-old female who appears older than her stated age. She is sitting up in a wheelchair. She appears to be in no acute distress. HEENT: PERRL. Hearing grossly intact. Oral mucous membranes are moist and no lesions. Cardiovascular: Regular rate and rhythm with S1, S2 present without murmurs, rubs, clicks, or gallops. There is no JVD. Respiratory: Symmetrical chest expansion without use of accessory muscles. Lungs are clear to auscultation bilaterally. Breath sounds are decreased. There are no wheezing, rhonchi, or rales. Abdomen: Flat. Bowel sounds noted in all quadrants. The abdomen is soft. There is no tenderness to palpation. Extremities: Skin is warm and smooth bilaterally. There is no clubbing or cyanosis. Radial and pedal pulses are palpable. The right lateral hip is somewhat tender to palpation. Sensation intact distally. Neuro: The patient is awake. She is alert and oriented x3. She is able to move all of her extremities. She currently walks with a walker. DISCHARGE PLAN: Ms. Cabello will be discharged to home. CONDITION: Good. ACTIVITY: 50% weightbearing on right leg with continued use of rolling walker. FOLLOWUP: With Physical Therapy. DIET: Heart-healthy. MEDICATIONS: No changes. EDUCATION: 1. Lab work notable for macrocytic anemia, thrombocytopenia. Repeat CBC in approximately 5 days with results to primary care provider. 2. Follow up with primary care provider in 4 to 7 days regarding pelvic fracture, recent lab work. 3. Return to the ER or nearest hospital if you experience any worsening of symptoms, worsening of pain, difficulty with walking, chest discomfort, shortness of breath, high fevers, chills, night sweats, lightheadedness, dizziness, loss of consciousness, or any other worrisome signs or symptoms. This is a summarized report of a complex medical history and hospital stay. For further details, please see the entire medical record. TIME SPENT: Approximately 30 minutes was spent on this discharge, greater than half that time was spent [id number] with the patient discussing discharge plans and instructions. VICKEY BYRNES [id number]/[facility] #: [id number] [place]
== END 2019-01-04 15:55 | disposition home or self-care (01) | DRG 536 ==
LOC: ED 21:58 → SSU 01-03 03:41
PROVIDERS: ADMIT Nurse Practitioner Family; ATTEND Internal Medicine
DX: S32.511A Fracture of superior rim of right pubis, initial encounter for closed fracture (principal); J96.11 Chronic respiratory failure with hypoxia; E87.1 Hypo-osmolality and hyponatremia; E46 Unspecified protein-calorie malnutrition; Z68.1 Body mass index [BMI] 19.9 or less, adult; W01.0XXA Fall on same level from slipping, tripping and stumbling without subsequent striking against object, initial encounter; J44.9 Chronic obstructive pulmonary disease, unspecified; E89.0 Postprocedural hypothyroidism; E78.00 Pure hypercholesterolemia, unspecified; I10 Essential (primary) hypertension; F41.9 Anxiety disorder, unspecified; R40.2362 Coma scale, best motor response, obeys commands, at arrival to emergency department; R40.2142 Coma scale, eyes open, spontaneous, at arrival to emergency department; R40.2252 Coma scale, best verbal response, oriented, at arrival to emergency department; S05.11XA Contusion of eyeball and orbital tissues, right eye, initial encounter; F32.9 Major depressive disorder, single episode, unspecified; I25.10 Atherosclerotic heart disease of native coronary artery without angina pectoris; D64.9 Anemia, unspecified; D69.6 Thrombocytopenia, unspecified; Z96.641 Presence of right artificial hip joint; I73.00 Raynaud's syndrome without gangrene; F10.10 Alcohol abuse, uncomplicated; Y90.9 Presence of alcohol in blood, level not specified; Z88.6 Allergy status to analgesic agent; Y92.009 Unspecified place in unspecified non-institutional (private) residence as the place of occurrence of the external cause; Z88.1 Allergy status to other antibiotic agents; Z88.5 Allergy status to narcotic agent; Z88.8 Allergy status to other drugs, medicaments and biological substances; Z82.5 Family history of asthma and other chronic lower respiratory diseases; Z82.49 Family history of ischemic heart disease and other diseases of the circulatory system; Z85.810 Personal history of malignant neoplasm of tongue; Z92.3 Personal history of irradiation; Z87.891 Personal history of nicotine dependence
CPT/HCPCS: 36415; 70450; 70486; 72192; 80048; 80053; 82607; 82746; 85025; 85027; 85060; 85610; 85730; 94640; 99284; A9270-GY; G8978-GP-CM; G8979-GP-CI; G8987-GO-CL; G8988-GO-CJ; J1170; J1650; J2405; J3010

== ENCOUNTER 2019-01-16 10:55 | Observation (INO) | payer MEDICARE ==
[2019-01-16] MEDS ORDERED: Albuterol/Ipratropium NEB.SOL* Albuterol 2.5 MG/Ipratropium 0.5 MG 3 ML INH ONE ×2 (11:03→15:54)
--- NOTE | 2019-01-16 11:05 | ED ---
Shortness of Breath - HPI Summary HPI Summary: The patient is a 73 y/o F arriving by ambulance to [facility] with a chief complaint of SOB over the last two to three weeks with sudden worsening this morning. Per EMS, the patient was found with O2 sat% of 85% while on 2L O2 (which she usually uses at home), and then she was put on 10L O2 with improvement at 100%. She was then weened down to 4L O2 at 100%. In the ambulance, the patient was also administered Albuterol and Dethamexazone. In the ED, the patient's symptoms are improved with rating of 6/10 in severity, including resolved pale pallor. She additionally reports a nonproductive cough with intermittent productive episodes of a scant amount of phlegm and increased BLE edema. She denies fever, chills, erythema of eyes, sore throat, CP, abdominal pain, N/V, dysuria, hematuria, myalgia, rash, and dizziness. She states that ambulation aggravates the SOB, and rest is an alleviating factor. She is not currently on medications for edema, but she takes Symbicort for COPD. She sleeps on one pillow at night. Hx is also significant for PNA (current), chronic bronchitis, HLD, HTN, and seizures. FHx of emphysema. Former smoker, daily EtOH (2-3 glasses ), no substance use. - History of Current Complaint Hx Obtained From: Patient, EMS Onset/Duration: Lasting Weeks - 2-3, Still Present, Worse Since - this morning Timing: Constant Current Severity: Moderate Dyspnea At: Exertion Aggravating Factors: Other - ambulation Alleviating Factors: Bronchodilators - Albuterol and Dethamexazone, Oxygen - between 4L and 10L in ambulance, 2L at home, Other - rest Associated Signs & Symptoms: Cough (Productive), Cough (Nonproductive) - intermittently with scant phelgm production, Edema - BLE - Allergy/Home Medications Allergies/Adverse Reactions: Allergies Allergy/AdvReac Type Severity Reaction Status Date / Time bupropion Allergy Rash Verified 01/16/19 11:04 doxycycline Allergy Abdominal Verified 01/16/19 11:04 Pain levofloxacin Allergy Swelling Verified 01/16/19 11:04 zonisamide Allergy decreases Verified 01/16/19 11:04 WBCs ciprofloxacin AdvReac Muscle Ache Verified 01/16/19 11:04 levetiracetam [From Keppra] AdvReac decreases Verified 01/16/19 11:04 WBCs lorazepam [From Ativan] AdvReac Altered Verified 01/16/19 11:04 Mental Status morphine AdvReac Hallucinati Verified 01/16/19 11:04 ons nifedipine [From Procardia] AdvReac Rash Verified 01/16/19 11:04 topiramate AdvReac Tachycardia Verified 01/16/19 11:04 Home Medications: Home Medications Azithromycin TAB* [Zithromax TAB (Z-SALOMON) 250 mg #6 tabs] 250 mg PO DAILY [History Confirmed 01/16/19] amLODIPine TAB* [Norvasc 5 mg TAB*] 5 mg PO DAILY 01/16/19 [History Confirmed ] PMH/Surg Hx/FS Hx/Imm Hx Endocrine/Hematology History: Reports: Hx Thyroid Disease - radiation induced hypothyrodism Denies: Hx Anticoagulant Therapy, Hx Blood Disorders, Hx Bone Marrow Disease , Hx Diabetes, Hx Systemic Lupus Erythematosus, Hx Sickle Cell Disease, Hx Anemia, Hx Unexplained Bleeding, Other Endocrine/Hematological Disorders Cardiovascular History: Reports: Hx Hypercholesterolemia - previously, Hx Hypertension, Other Cardiovascular Problems/Disorders - Raynauds disease of heart, hands and feet, severe Denies: Hx Aneurysm, Hx Angina, Hx Angioplasty, Hx Auto Implanted Cardiovert Defib, Hx Cardiac Arrest, Hx Cardiomegaly, Hx Congenital Heart Disease, Hx Congestive Heart Failure, Hx Coronary Artery Disease, Hx Deep Vein Thrombosis, Hx Embolism, Hx Hypotension, Hx Pacemaker/ICD, Hx Peripheral Vascular Disease, Hx Rheumatic Fever, Hx Syncope, Hx Valvular Heart Disease Respiratory History: Reports: Hx Chronic Bronchitis, Hx Chronic Obstructive Pulmonary Disease (COPD) - 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, Hx Pneumonia, Other Respiratory Problems/Disorders - PT STATES STRONG FAMILY HX OF GENETIC BASED EMPHYSEMA Denies: Hx Asthma, Hx Cystic Fibrosis, Hx Lung Cancer, Hx Pleural Effusion, Hx Pulmonary Edema, Hx Pulmonary Embolism, Hx Sleep Apnea GI History: Reports: Hx Gastrointestinal Bleed - 2007, Hx Obstructive Bowel - "twisted intestine", Other GI Disorders - colitis Denies: Hx Cirrhosis, Hx Crohn's Disease, Hx Diverticulosis, Hx Gall Bladder Disease, Hx Gastroesophageal Reflux Disease, Hx Hiatal Hernia, Hx Irritable Bowel, Hx Jaundice, Hx Ileostomy, Hx Pyloric Stenosis, Hx Ulcer History: Denies: Hx Acute Renal Failure, Hx Benign Prostatic Hyperplasia, Hx Chronic Renal Failure, Hx Dialysis, Hx Kidney Infection, Hx Kidney Stones, Hx Renal Disease, Other Problems/Disorders Musculoskeletal History: Denies: Hx Arthritis, Hx Rheumatoid Arthritis, Hx Back Problems, Hx Bursitis , Hx Congenital Bone Abnormalities, Hx Fibromyalgia, Hx Gout, Hx Orthopedic Injury, Hx Osteoporosis, Hx Scoliosis, Hx Tendonitis, Other Musculoskeletal History Sensory History: Reports: Hx Cataracts, Hx Contacts or Glasses Denies: Hx Eye Injury, Hx Eye Prosthesis, Hx Glaucoma, Hx Legally Blind, Hx Macular Degeneration, Hx Vision Problem, Hx Deafness, Hx Hearing Aid, Hx Hearing Problem, Other Sensory Impairments Opthamlomology History: Reports: Hx Cataracts, Hx Contacts or Glasses Denies: Hx Eye Injury, Hx Eye Prosthesis, Hx Glaucoma, Hx Legally Blind, Hx Macular Degeneration, Hx Vision Problem, Other Sensory Impairments Neurological History: Reports: Hx Seizures - 2006 febrile Denies: Hx Dementia, Hx Developmental Delay, Hx Headaches, Hx Migraine, Hx Nerve Disease, Hx Spinal Cord Injury, Hx Transient Ischemic Attacks (TIA), Other Neuro Impairments/Disorders Psychiatric History: Reports: Hx Anxiety - when SOB Denies: Hx Attention Deficit Hyperactivity Disorder, Hx Eating Disorder, Hx Depression, Hx Panic Disorder, Hx Post Traumatic Stress Disorder, Hx Inpatient Treatment, Hx Community Mental Health Tx, Hx Schizophrenia, Hx Bipolar Disorder , Hx Suicide Attempt, Hx of Violent Episodes Against Others, Hx Substance Abuse , Other Psychiatric Issues/Disorders - Cancer History Cancer Type, Location and Year: neoplasm malignant left mouth/tongue salivary gland 2011 Hx Chemotherapy: No Hx Radiation Therapy: Yes - 2013 Hx Palliative Cancer Treatment: No - Surgical History Surgery Procedure, Year, and Place: 08/27/13 - BIOPSY UNDER TONGUE-[facility] 1990[facility], salivary gland and lymph node removed from left neck. D&C-[facility]. bilat hips and shoulder repaired. Hx Anesthesia Reactions: No Infectious Disease History: Denies: Hx Hepatitis, Hx Human Immunodeficiency Virus (HIV), Hx Tuberculosis , History Other Infectious Disease - Family History Known Family History: Positive: Cardiac Disease, Respiratory Disease - emphysema Negative: Hypertension - Social History Alcohol Use: Daily Alcohol Amount: 2-3 GLASSES/DAY Hx Substance Use: No Substance Use Type: Reports: None Hx Tobacco Use: Yes Smoking Status (MU): Former Smoker Type: Cigarettes Amount Used/How Often: 45 years Length of Time of Smoking/Using Tobacco: 07/30/2011 Have You Smoked in the Last Year: No Review of Systems Positive: Fever. Negative: Chills Negative: Erythema Negative: Sore Throat Negative: Chest Pain Positive: Shortness Of Breath, Cough - nonproductive (intermittently productive with scant amount of phlegm) Negative: Abdominal Pain, Vomiting, Nausea Negative: dysuria, hematuria Positive: Edema - BLE. Negative: Myalgia Positive: Other - pale palloe (resolved). Negative: Rash Neurological: Other - NEGATIVE: dizziness All Other Systems Reviewed And Are Negative: Yes Physical Exam - Summary Physical Exam Summary: Constitutional: Well-developed, Well-nourished, Alert. (-) Distressed Skin: Warm, Dry HENT: Normocephalic; Atraumatic Eyes: Conjunctiva normal Neck: Musculoskeletal ROM normal neck. (-) JVD, (-) Stridor, (-) Tracheal deviation Cardio: Rhythm regular, rate normal, Heart sounds normal; Intact distal pulses; The pedal pulses are 2+ and symmetric. Radial pulses are 2+ and symmetric. (-) Murmur Pulmonary/Chest wall: Tachypnea. (-) Respiratory distress, (+) Wheezes, (+) Crackles, (-) Rales Abd: Soft, (-) tenderness, (-) Distension, (-) Guarding, (-) Rebound Musculoskeletal: (+) 1+ BLE Pitting Edema Lymph: (-) Cervical adenopathy Neuro: Alert, Oriented x3 Psych: Mood and affect Normal Triage Information Reviewed: Yes Vital Signs Reviewed: Yes Diagnostics - Laboratory Result Diagrams: 01/16/19 11:21 01/16/19 11:21 Lab Statement: Any lab studies that have been ordered have been reviewed, and results considered in the medical decision making process. - Radiology CXR Radiology Interpretation Completed By: Radiologist Summary of Radiographic Findings: Stigmata of obstructive lung disease. No acute pulmonary or cardiac process evident. ED physician has reviewed this report. - CT Chest/Thorax CTA CT Interpretation Completed By: Radiologist Summary of CT Findings: 1. No pulmonary arterial pilling defect to suggest pulmonary embolism. 2. Emphysema. 3. Atherosclerosis. 4. Interval development of pulmonary parenchymal nodules within the left lower lung measuring up to 1.1 cm. The recommendations for follow up and management of an incidentally detected pulmonary nodule greater than 8 mm in size. In a patient without a history of malignancy, include follow up at 3 months, PET-CT, and/or biopsy. ED physician has reviewed this report. - EKG 1150 Cardiac Rate: NL - 73 BPM EKG Rhythm: Sinus Rhythm EKG Comparison: No Significant Change - Similar to EKG taken on 11/28/2017. Summary of EKG Findings: J-point elevations. No STEMI. Re-Evaluation - Re-Evaluation First Eval Re-Evaluation Time: 14:40 Comment: I discussed findings and discharge with follow up with her PCP. We will continue observation and treatment for now. Second Eval Re-Evaluation Time: 15:30 Change: Improved Comment: all symptoms resolved; agrees with plan as well as pt Third Eval Re-Evaluation Time: 16:05 Change: Worse Comment: As the patient was being prepared for discharge by the nurse, the patient suddenly had SOB and wheezing. She states she cannot go home, and her is uncomfortable caring for her at home in this state. She will be pushed for admission, and Dr. Last will come see her in the ED. Course/Dx - Course Assessment/Plan: The patient is a 73 y/o F arriving by ambulance to [facility] with a chief complaint of SOB over the last few weeks with sudden worsening this morning. In the ambulance, her O2 sat% increased from 85% to 100% with increased O2 administration with weening from 10L to 4L over the course of the route. She was also administered Albuterol and Dethamexazone, improving her symptoms. Additional symptoms include nonproductive cough with intermittent productive episodes of a scant amount of phlegm, increased BLE edema, and pale pallor that has since resolved. She denies fever, chills, erythema of eyes, sore throat, CP, abdominal pain, N/V, dysuria, hematuria, myalgia, rash, and dizziness. No medications for edema, but she takes Symbicort for COPD. Hx is also significant for PNA (current), chronic bronchitis, HLD, HTN, and seizures. FHx of emphysema. Former smoker. Upon physical exam, the patient exhibits 1+ BLE pitting edema, tachypnea, wheezes, and crackles. In the ED course the patient was administered Duoneb and Visipaque for CT. Patient was placed on cardiac exercise specialist. O2 is stable in the ED. Bloodwork shows no significant abnormalities except for RBCs of 3.07, hgb of 10.5, hct of 32, MCV of 103, MCH of 34, MPV of 6.5, abs neuts of 8.7, abs lymphs of 0.4, abs monos of 0.9, D- Dimer of 820, sodium of 133, chloride of 94, carbon dioxide of 35, BUN/ creatinine ratio of 20.4, glucose of 144, alkaline phosphatase of 163, and BNR of 184. Troponin is negative. EKG shows J-point elevations. CXR reveals stigmata of obstructive lung disease without acute pulmonary or cardiac process evident. Chest/Thorax CTA Impression: 1. No pulmonary arterial pilling defect to suggest pulmonary embolism. 2. Emphysema. 3. Atherosclerosis. 4. Interval development of pulmonary parenchymal nodules within the left lower lung measuring up to 1.1 cm. The recommendations for follow up and management of an incidentally detected pulmonary nodule greater than 8 mm in size. In a patient without a history of malignancy, include follow up at 3 months, PET-CT, and/or biopsy. The patient is diagnosed with COPD exacerbation and pulmonary nodule. The patient was clear for discharge until the nurse attempted to move the patient to prepare for discharge; she became short of breath and had wheezing. At this time, the patient felt like she is not ready to go home, and her is uncomfortable taking care of her in this state. I will speak with Dr. Last, hospitalist, to discuss the case for possible admission. At 1610, I consulted Dr. Last, and she will see the patient in the ED. - Diagnoses Provider Diagnoses: COPD exacerbation, Pulmonary nodule Discharge - Sign-Out/Discharge Patient Received Moderate/Deep Sedation with Procedure: No - Discharge Plan Condition: Stable Prescriptions: predniSONE TAB* [Deltasone TAB*] 50 mg PO DAILY #4 tab Patient Education Materials: COPD (Chronic Obstructive Pulmonary Disease) (DC) , Pulmonary Nodules (ED) Referrals: Daxa James MD [Primary Care Provider] - 3 Days Additional Instructions: Please take medications as prescribed. Follow up with your primary care provider in 2-3 days. RETURN TO THE EMERGENCY DEPARTMENT FOR ANY NEW OR WORSENING SYMPTOMS. - Billing Disposition and Condition Condition: STABLE - Attestation Statements Document Initiated by Scribe: Yes Documenting Scribe: Suzie Esposito Provider For Whom Nathanielibmissy is Documenting (Include Credential): Dr. Shen Lozano MD Scribe Attestation: I, Suzie Esposito scribed for Dr. Shen Lozano MD on 01/16/19 at 1607. Scribe Documentation Reviewed: Yes Provider Attestation: The documentation as recorded by the yosie, Suzie Esposito accurately reflects the service I personally performed and the decisions made by me, Dr. Sehn Lozano MD Status of Scribe Document: Viewed
[2019-01-16 11:30] LABS: ABS Eosinophils 0.1 10^3/ul (0-0.6); ABS Lymphocytes 0.4 10^3/ul (1.0-4.8); ABS Monocytes 0.9 10^3/ul (0-0.8); ABS Neutrophils 8.7 10^3/ul (1.5-7.7); Eosinophil % 1.5 %; Hematocrit 32 % (35-47); Hemoglobin 10.5 g/dL (12.0-16.0); Lymphocyte % 3.8 %; Mean Corpuscular HGB Conc 33 g/dL (31-36); Mean Corpuscular Hemoglobin 34 pg (27-31); Mean Corpuscular Volume 103 fL (80-97); Mean Platelet Volume 6.5 fL (7.4-10.4); Platelet Count 308 10^3/uL (150-450); Red Blood Count 3.07 10^6 /uL (3.70-4.87); Red Cell Distribution Width 12 % (10-15); White Blood Count 10.1 10^3/uL (3.5-10.8)
[2019-01-16 11:46] LABS: Albumin 3.3 g/dL (3.2-5.2); BUN/Creatinine Ratio 20.4 (8-20); Calcium 8.9 mg/dL (8.6-10.3); EGFR African American 134.7 (>60); EGFR Non-African American 111.3 (>60); Globulin 3.3 g/dL (2-4); Potassium 3.9 mmol/L (3.5-5.0); Total Bilirubin 0.4 mg/dL (0.2-1.0); Total Protein 6.6 g/dL (6.4-8.9)
[2019-01-16] MEDS ORDERED: Iodixanol* (CONTRAST) 320 MG/ML 100 ML SDV IV ONE (13:35)
[2019-01-16] MEDS ORDERED: Acetaminophen TAB* 325 MG PO PRN (17:44)
[2019-01-16] MEDS ORDERED: Atorvastatin* 10 MG TAB PO SCH (18:00)
[2019-01-16] MEDS: methylPREDNISolone SOD 40 MG* 1 ML VIAL IV SCH (18:40)
--- NOTE | 2019-01-16 19:53 | HP ---
CC: Dr. Castaneda; Dr. James * HISTORY AND PHYSICAL: DATE OF ADMISSION: 01/16/19 PRIMARY CARE PROVIDER: Dr. James. PACK OUT OPERATOR: Dr. Castaneda. CHIEF COMPLAINT: Shortness of breath. HISTORY OF PRESENT ILLNESS: Trina Cabello is a 73-year-old female with history of COPD, oxygen dependent who has been short of breath for the past couple of weeks , more so with exertion. 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 She was afraid to increase her oxygen while ambulating. She stated that she feels congestion in her airways, but she is unable to cough it up. The patient was ready to be discharged, but when she was putting her clothes on, she developed severe dyspnea. At this point, ED doctor recommended for the patient to stay overnight. She is going to be admitted with diagnosis of COPD exacerbation overnight. PAST MEDICAL HISTORY: 1. History of COPD, oxygen dependent 2 L. 2. History of hypertension. 3. Coronary artery disease. 4. Hypothyroidism. 5. Anxiety. 6. Depression. 7. Raynaud's. 8. History of oral cancer status post radiation in 2013. 9. History of recent pelvic fracture, treated conservatively, that was 2 weeks ago. 10. History of left hip ORIF in 2016. 11. History of right hip hemiarthroplasty in 2017. 12. History of oral cancer and lymph node resection in 2013. MEDICATIONS: At home include: 1. Symbicort 160/4.5 two puffs inhalation b.i.d. 2. Amlodipine 5 mg daily. 3. Zoloft 50 mg daily. 4. Metoprolol succinate 100 mg daily. 5. Levothyroxine 50 mcg daily. 6. Irbesartan 150 mg daily. 7. Atorvastatin 10 mg daily. 8. Combivent Respimat 2 puffs every 6 hours p.r.n. 9. DuoNeb on a p.r.n. basis. The patient stated that she does not use them. 10. Alprazolam 0.5 mg 3 times a day p.r.n. FAMILY HISTORY: The patient's mother with history of COPD and hypertension. Father with history of CHF and hypertension. SOCIAL HISTORY: The patient quit smoking in 2011. She has a history of 15 pack year smoking. She drinks 2 drinks of alcoholic beverages at night. Her surrogate decision maker is her , Eloy. REVIEW OF SYSTEMS: Please see history of present illness. All the remaining 12 systems were reviewed with the patient and were otherwise negative. PHYSICAL EXAMINATION GENERAL: The patient is a 73-year-old female, who is of thin body habitus, who is in no acute distress. Alert, awake, and oriented x3. VITAL SIGNS: Blood pressure of 136/72, heart rate of 77 and regular, respiratory rate 16, oxygen saturation 97% on 2 L of oxygen nasal cannula, temperature of 98.5. HEENT: Head: Atraumatic, normocephalic. Eyes: Pupils are equal, reactive to light and accommodation. Oropharynx clear. Mucosa moist. NECK: Supple. No JVD, no bruits bilaterally. RESPIRATORY: Decreased breath sounds bilaterally with scattered wheezes in bilateral, mid lung. CARDIOVASCULAR: Regular rate and rhythm. No murmur. ABDOMEN: Soft, nontender. Bowel sounds are present in all 4 quadrants. EXTREMITIES: There is +1 pitting pedal edema, right more than left. No clubbing or cyanosis. Pulses are poorly palpable, but the patient has good capillary refill bilaterally. NEUROLOGIC: Speech clear. Cranial nerves II through XII grossly intact. Motor strength is 5/5 bilaterally. PSYCHIATRIC: Alert and oriented x3. No evidence of anxiety or depression. DIAGNOSTIC STUDIES/LAB DATA: Laboratory data and studies during the hospital stay included: CT angiogram of the chest, impression: "No pulmonary arterial filling defects, pulmonary embolism, emphysema, atherosclerosis. There is some development of nodules within the left lower lobe measuring up to 1.1 cm. " White blood cell count 10.1, hemoglobin of 10.5, hematocrit of 32, MCV of 105, and platelets of 308. Sodium of 133, potassium 3.9, chloride 95, carbon dioxide 35, BUN 11, creatinine 1.54. Liver function tests unremarkable, but there was slight elevation of alkaline phosphatase of 163. ASSESSMENT AND PLAN: 1. A 73-year-old female with history of chronic obstructive pulmonary disease who presents with exacerbation. She is going to be placed on p.o. azithromycin as well as DuoNeb and IV Solu-Medrol for overnight observation. 2. For her hypertension, her beta-ruby and irbesartan is going to be continued as well as amlodipine. 3. The patient's code status is full. 4. For DVT prophylaxis, the patient is going to be placed on heparin subcutaneously. 5. For anxiety, the patient is going to be continued on alprazolam as previously taken. TIME SPENT: Approximately 65 minutes were spent on admission of this patient, more than half of that time was spent [id number] with the patient during the interview and physical exam. [id number]/[facility] #: [id number] [place]
[2019-01-16] MEDS: ALPRAZolam TAB* 0.5 MG PO SCH (20:50)
[2019-01-16] MEDS: Docusate CAP* 100 MG PO SCH (20:51)
[2019-01-16] MEDS: Heparin VIAL(*) 5000 UNITS/ML VIAL (FIVE THOUSAND) SUBCUT SCH (20:52)
[2019-01-16] MEDS ORDERED: oxyCODONE/Acetamin 5/325 MG* TAB PO PRN (21:00)
[2019-01-17] MEDS: Albuterol/Ipratropium NEB.SOL* Albuterol 2.5 MG/Ipratropium 0.5 MG 3 ML INH SCH ×4 (00:04→08:23)
[2019-01-17] MEDS: methylPREDNISolone SOD 40 MG* 1 ML VIAL IV SCH ×2 (02:30→08:37)
[2019-01-17] MEDS: Heparin VIAL(*) 5000 UNITS/ML VIAL (FIVE THOUSAND) SUBCUT SCH (05:40)
[2019-01-17] MEDS ORDERED: Levothyroxine TAB* 50 MCG TAB PO SCH (06:00)
[2019-01-17 07:33] VITALS: BP 127/60
[2019-01-17] MEDS ORDERED: Albuterol/Ipratropium NEB.SOL* Albuterol 2.5 MG/Ipratropium 0.5 MG 3 ML INH PRN (08:25)
[2019-01-17 08:29] LABS: BUN/Creatinine Ratio 23.3 (8-20); Calcium 9.4 mg/dL (8.6-10.3); EGFR African American 175.1 (>60); EGFR Non-African American 144.7 (>60)
[2019-01-17] MEDS: ALPRAZolam TAB* 0.5 MG PO SCH (08:36)
[2019-01-17] MEDS: Docusate CAP* 100 MG PO SCH (08:38)
[2019-01-17] MEDS ORDERED: amLODIPine TAB* 5 MG PO SCH (09:00)
[2019-01-17] MEDS ORDERED: Azithromycin TAB* 250 MG PO SCH (09:00)
[2019-01-17] MEDS ORDERED: Metoprolol Succinate XL TAB* 100 MG PO SCH (09:00)
[2019-01-17] MEDS ORDERED: Sertraline* 50 MG TAB PO SCH (09:00)
[2019-01-17] MEDS ORDERED: Azithromycin TAB* 250 MG PO ONE (11:00)
--- NOTE | 2019-01-17 21:41 | DS ---
CC: Dr. Daxa James * DISCHARGE SUMMARY: DATE OF ADMISSION: 01/16/19 DATE OF DISCHARGE: 01/17/19 PRIMARY CARE PROVIDER: Dr. Daxa James. ATTENDING PHYSICIAN WHILE IN THE HOSPITAL: Dr. Carmen Last * (dictated by VICKEY Hill). PRIMARY DIAGNOSIS: Chronic obstructive pulmonary disease exacerbation. SECONDARY DIAGNOSES: 1. Chronic obstructive pulmonary disease, on 2 L oxygen at home. 2. Hypertension. 3. Coronary artery disease. 4. Hypothyroidism. 5. Anxiety. 6. Depression. 7. Raynaud's. 8. Oral cancer, status post radiation in 2014, status post lymph node resection in 2013. STUDIES WHILE IN THE HOSPITAL: Chest CT angiogram on 01/19/19. Impression: 1. No pulmonary arterial filling defect to suggest pulmonary embolism. 2. Emphysema. 3. Atherosclerosis. 4. Interval development of pulmonary parenchymal nodules within the left lower lobe measuring up to 1.1 cm. Pertinent lab data: White blood cell count 10.1. Troponin 0.00. HISTORY OF PRESENT ILLNESS/HOSPITAL COURSE: Trina Cabello is a 73-year-old female with past medical history significant for COPD, on 2 L oxygen at home; coronary artery disease; hypertension; history of oral cancer, who presented to the emergency department on 01/16/19 with shortness of breath. Please see admitting history and physical dictated by Dr. Last for further information. The patient, during her hospital stay, was started on azithromycin for empiric coverage of bronchitis. She was given DuoNebs and IV Solu-Medrol. She had great improvement the following day. She remained on her baseline 2 L oxygen during the entirety of her hospital stay and did not develop hypoxia at any point on this 2 L flow rate. On the day of discharge, she is not dyspneic at rest or exertion and is feeling comfortable going home. She denies fever, chills, shortness of breath, chest pain, abdominal pain, dizziness, or lightheadedness. PHYSICAL EXAM: Thin, elderly white female, appears older than stated age, lying upright in hospital bed, appearing in no acute distress. at bedside. Head: Minimal ecchymosis to right infraorbital region. Eyes: PERRL. Sclerae anicteric. ENT: Mucous membranes moist. Neck: Supple without JVD. Lungs: Faint wheezing in left lower lung, otherwise diminished breath sounds, but without other adventitious lung sounds. Cardiac: Regular rate and rhythm without murmurs, rubs, or gallops. Abdomen: Normoactive bowel sounds x4 quadrants. Abdomen is soft, nontender, and nondistended without hepatosplenomegaly. Extremities: No clubbing, cyanosis, or edema. Neuro: The patient is alert and oriented x3. No focal deficits. Able to move all extremities. No tremors. DISCHARGE PLAN: Diet: Heart-healthy diet. Activity: The patient may return to her normal activity as tolerated. The patient is advised to follow up with her primary care provider in 7 to 10 days regarding this hospitalization. At this time, it is advised that the patient have a PET scan to follow up these new pulmonary nodules given the size and her history of oral cancer. The patient was notified of these pulmonary lung nodules. The patient is advised to call her primary care provider or Dr. Castaneda's office if she experiences worsened shortness of breath. She was advised to return to the emergency department if she is unable to reach these offices. She is advised to come to the emergency department if she experiences chest pain, loss of consciousness, fever, or chills. She is otherwise to return to her normal medications. DISCHARGE MEDICATIONS: 1. Prednisone 50 mg p.o. daily x5 days. 2. Azithromycin 250 mg p.o. daily x5 days. 3. DuoNeb 1 inhaled every 6 hours x3 days. Continued home medications: 1. Symbicort 2 puffs inhaled b.i.d. 2. Amlodipine 5 mg p.o. daily. 3. Zoloft 50 mg p.o. daily. 4. Metoprolol succinate 100 mg p.o. daily. 5. Synthroid 50 mcg p.o. daily. 6. Irbesartan 150 mg p.o. daily. 7. Atorvastatin 10 mg p.o. daily. 8. Combivent Respimat 2 puffs inhaled q.6 hours p.r.n. 9. Xanax 0.5 mg p.o. t.i.d. CONDITION ON DISCHARGE: Stable. DISPOSITION: Home. TIME SPENT: Approximately 45 minutes was spent on this discharge, approximately half of this time spent at bedside. VICKEY HILL [id number]/[facility] #: [id number] [facility] HOSPITALFang
== END 2019-01-17 11:30 | disposition home or self-care (01) ==
LOC: ED 10:55 → MED 17:44
PROVIDERS: ADMIT Internal Medicine; ATTEND Internal Medicine
DX: J44.1 Chronic obstructive pulmonary disease with (acute) exacerbation (principal); R06.02 Shortness of breath; R91.1 Solitary pulmonary nodule; Z87.891 Personal history of nicotine dependence; I10 Essential (primary) hypertension; K21.9 Gastro-esophageal reflux disease without esophagitis; I25.10 Atherosclerotic heart disease of native coronary artery without angina pectoris; E03.9 Hypothyroidism, unspecified; F41.9 Anxiety disorder, unspecified; F32.9 Major depressive disorder, single episode, unspecified; I73.00 Raynaud's syndrome without gangrene; Z85.818 Personal history of malignant neoplasm of other sites of lip, oral cavity, and pharynx
CPT/HCPCS: 36415; 71045; 71275; 80048; 80053; 83605; 83880; 84484; 85025; 85379; 87040; 93005; 94640; 96372; 99285; A9270-GY; G0378; J1644; J2920; Q9967

== ENCOUNTER 2019-04-24 17:22 | Emergency (ER) | payer MEDICARE ==
--- OUTSIDE RECORDS SUMMARY | 2019-04-24 17:28 | XMS REPORT | Continuity of Care Document ---
:1945 External Reference #:[id number] Author Name Dhaval Brewer Care Team Providers Name Role Phone Daxa James MD Primary Care Physician Unavailable Payers Date Identification Numbers Payment Provider Subscriber Effective: 2012 Policy Number: [id number] Medicare Trina Keen PayID: [id number] [address] [place] [address] Policy Number: [id number] [facility] Trina Keen PayID: [id number] [address] [place] [address] Problems Active Problems Provider Date Carcinoma in situ of lip, oral cavity Alan Ellison M.D.,FACP Onset: and pharynx Leukopenia Lena Choudhury M.D. Onset: 01/24/2013 Chronic obstructive lung disease Lena Choudhury M.D. Onset: 01/24/2013 Coronary atherosclerosis Lena Choudhury M.D. Onset: 01/24/2013 Acute exacerbation of chronic Muna Castaneda MD Onset: 02/14/2016 obstructive airways disease Anxiety disorder Muna Castaneda MD Onset: 05/17/2016 Chronic respiratory failure Muna Castaneda MD Onset: 05/17/2016 Closed fracture of neck of femur Be Carranza MD Onset: 11/24/2017 Closed fracture of upper end of Be Carranza MD Onset: 11/24/2017 humerus Prosthetic arthroplasty of the hip Mee Castillo M.D. Onset: 02/18/2018 Inactive Problems Seizure Daxa James M.D. Onset: 02/05/2014 Inactive: 08/25/2016 Family History Date Family Member(s) Observation Comments : (age 76 Father due to [place] emphysema Years) : (age 76 Mother due to Pneumonia mother was one of 13 Years) children - FHx diabetes, strokes and aneurysms : (age 43 First Sister due to Suicide alcoholic Years) Onset: (age 43 First Sister Suicide Years) Social History Type Date Description Comments Sex Unknown Marital Status Lives With Spouse Occupation Retired Tobacco Use Start: Unknown End: Former Cigarette Unknown Smoker Smoking Status Reviewed: 03/04/19 Former Cigarette Smoker ETOH Use Drinks 2 Alcoholic Beverages Per Day Tobacco Use Start: Unknown End: Patient is a former quit 02/07 Unknown smoker Recreational Drug Use Never Used Drugs Exercise Type/Frequency Exercises regularly Exercise Type/Frequency Physical therapy 2x per week plus home exercises Allergies, Adverse Reactions, Alerts Active Allergies Reaction Severity Comments Date Lamotrigine mack 06/19/2012 Lorazepam agitation, when mixed with Morphine Severe 01/24/2013 Nifedipine teeth became loose Severe 01/24/2013 Topiramate racing heart, fatigue , tight muscles Severe 01/24/2013 Levaquin achilles tendonitis 06/23/2015 Morphine 10/12/2015 Bupropion Rash 05/30/2016 Doxycycline stomach pain 03/27/2017 Medications Active Medications SIG Qnty Indications Ordering Date Provider Prednisone 1 by mouth every 14tabs Muna Castaneda, 01/16/2019 10mg day MD Tablets Amlodipine Besylate 1 by mouth every 90tabs I10 Daxa 08/16/2018 day Dean James 5mg Tablets Levothyroxine Sodium take 2 pills on 120tabs Daxa 07/24/2018Mondays and Dean James 50mcg Tablets , one pill on other days Alburerol 1 vial qid prn in 150units J44.1 Muna Castaneda, 07/18/2018 2.5mg/3ML nebulizer MD Solution Albuterol Sulfate 0.5 milliliters of 90units Muna Castaneda, 07/17/2018 concentrated MD (5mg/ML) 0.5% albuterol diluted Nebulizer with 2.5 milliliters of saline every 6 hours prn Hypersal use as directed 720ml R05 Muna Castaneda, 07/10/2018 3.5% for secretions MD Nebulizer twice daily after nebulizer Irbesartan Take One Tablet By 90tabs I10 Daxa 02/18/2018 300mg Mouth Every Day Dean James Tablets Metoprolol Succinate 1 by mouth every 90tabs R00.2 Daxa 01/28/2018 ER day Dean James 100mg Tablets ER 24HR Oxygen please use o2 at 1units R09.02 Muna Castaneda, 10/29/2017 Misc 2l/min during exertion, pls provide pt with light weight portable o2 concentrator Sertraline HCL Take One Tablet By 90tabs F41.9 Daxa 03/27/2017 50mg Mouth Every Day Dean James Tablets Alprazolam take one tablet by 120tabs F41.9 Ronna Johnson MD 02/22/2017 0.5mg mouth every 4 to 6 Tablets hours as needed for anxiety maximum daily dose = 4 Atorvastatin Calcium Take One Tablet By 90tabs Daxa 10/27/2015 Mouth Every Day Dean James 10mg Tablets Ipratropium 1 vial in 90units I10 Muna Castaneda, 05/10/2015 [place]/Albuterol nebulizer q6h as Sulfate needed for asthma 0.5-2.5(3)mg/3ML Solution Combivent Respimat Inhale Two Puffs 24units Daxa 07/28/2014 By Mouth Four Dean James 20-100mcg/Act Times A Day Aerosol Maximum Daily Dose = 8 Puffs Symbicort Inhale Two Puffs 30.6units I10 Daxa 01/27/2013 By Mouth Twice A Dean James 160-4.5mcg/Act Day Aerosol Aspirin Adult Low take one tablet by 90tabs Daxa Strength mouth daily. Dean James 81mg Tablets DR History Medications Tramadol HCL 1-2 tablets 30tabs S32.82xS Ronna Johnson MD 01/28/2019 - 50mg every 6 hours as 03/03/2019 Tablets needed Prednisone 1 by mouth every 5tabs Daxa 01/17/2019 - 50mg day.When Dean James 01/28/2019 Tablets finished begin 10 mg dose Azithromycin take 2 tablets 6tabs Muna Castaneda, 01/12/2019 - 250mg today; then one 03/04/2019 Tablets tablet daily Oxycodone-Acetaminop 1 tabs by mouth 60tabs Daxa 01/07/2019 - hen every 4-6 hours Dean James 03/04/2019 5-325mg Tablets as needed for pain Azithromycin take 2 tablets 6tabs Ronna Johnson MD 11/18/2018 - 250mg today; then one 01/12/2019 Tablets tablet daily Azithromycin take 2 tablets 6tabs Sandra 11/08/2018 - 250mg on day 1, then 1 HAYDEN Bradshaw 11/13/2018 Tablets tab daily for 4 days Albuterol Sulfate 1 vial via 75ml J44.1 Muna Castaneda 07/17/2018 - nebulizer 4 07/17/2018 2.5mg/0.5ML times daily as Nebulizer needed R05 R06.00 Azithromycin 2 tabs day#1, 1 6tabs Muna 07/10/2018 - 250mg Tablets tablet daily for MD Leonel 08/15/2018 4 days Prednisone 4 tabs day#1, 3 21units Muna 07/10/2018 - 10mg (21) TBPK tabs day#2, 2 MD Leonel 08/15/2018 tabs day#3, 1 tab for 7 days Azithromycin 2 tabs by mouth 6tabs R05 Daxa 04/26/2018 - 250mg Tablets on day 1; 1 tab Dean James 2018 by mouth every day on days 2-5 Acetaminophen 1-2 tablets by 180tabs Daxa 02/05/2018 - 325mg Tablets mouth every4 - Dean James 10/30/2018 6 hours as needed for pain - 1 tablet for mild pain, 2 tablets for moderate pain- MDD 2000 mg Valsartan 1 by mouth every 90tabs I10 Daxa 01/28/2018 - 320mg Tablets day Dean James 02/18/2018 Amlodipine Besylate 1 by mouth every 30tabs Daxa 01/25/2018 - 2.5mg day Dean James 01/28/2018 Tablets Valsartan 1 by mouth every I10 Daxa 01/23/2018 - 160mg Tablets day Dean James 01/28/2018 Valsartan 1 by mouth every I10 Daxa 01/14/2018 - 40mg Tablets day Dean James 01/23/2018 Valsartan 1 by mouth daily 30tabs I10 [facility] 09/26/2017 - 80mg Tablets Dean James 01/14/2018 Azithromycin 2 tabs by mouth 6tabs R05 [facility] 03/27/2017 - 250mg Tablets on day 1; 1 tab Dean James 04/06/2017 by mouth every day on days 2-5 Doxycycline Hyclate 1 tab by mouth 20tabs J44.1 [facility] 02/22/2017 - 100mg twice a day for Dean James 02/28/2017 Tablets 10 days Sertraline HCL 1/2 tab by mouth 30tabs F41.9 [facility] 02/22/2017 - 25mg Tablets every day for Dean James 03/27/2017 first week, then whole tablet every Stiolto Respimat 1 puff daily I10 Muna 08/01/2016 - 2.5-2.5mcg/Act MD Leonel 08/25/2016 Aerosol Metoprolol Succinate ER 1 and 1/2 by 135tabs R00.2 [facility] 07/10/2016 - 50mg mouth every day Dean James 01/28/2018 Tablets ER 24HR Metoprolol Succinate ER 1 PO qd 30tabs R00.2 [facility] 05/31/2016 - 25mg Dean James 07/10/2016 Tablets ER 24HR Valsartan 1 by mouth every 30tabs I10 [facility] 05/30/2016 - 80mg Tablets day Dean James 06/18/2017 Metoprolol Tartrate 1/2 tab PO qd x 30tabs R00.2 [facility] 05/30/2016 - 50mg 1 week then Dean James 05/31/2016 Tablets increase whole tablet daily Oxygen 2l/min at night [facility] 05/30/2016 - Misc Dean James 10/29/2017 Azithromycin 1 by mouth every 30tabs J44.1 [facility] 05/17/2016 - 250mg Tablets day MD Leonel 08/25/2016 Alprazolam take 1 to 2 120tabs F41.9 [facility] 05/17/2016 - 0.25mg Tablets tablets by mouth Dean James 02/22/2017 two times daily as needed -- maximum daily dose of 4 per day Buspirone HCL 1 by mouth once 60tabs Daxa 05/09/2016 - 10mg Tablets daily for 2-3 Dean James 07/28/2016 days, then twice daily (05/17/16 pt states that she stopped med d/t rash ) Valsartan 1 by mouth every 30tabs I10 Daxa 04/21/2016 - 160mg Tablets day Dean James 05/30/2016 Ciprofloxacin HCL 1 by mouth twice 10tabs J44.1 [facility] 02/14/2016 - 750mg Tablets a day MD Leonel 02/14/2016 Prednisone 1 tab by mouth 90tabs J44.1 [facility] 02/14/2016 - 5mg Tablets every day every MD Leonel 05/18/2016 morning (Not taking ) Cefuroxime Axetil 1 tab by mouth 14tabs [facility] 02/14/2016 - 500mg Tablets twice daily PT MD Leonel 05/30/2016 Not Taking as Of 05/02/16 Prednisone 3 tabs daily for 30tabs [facility] 01/03/2016 - 20mg Tablets 3 days, 2 tabs MD Leonel 02/14/2016 daily for 3 days, 1 tab daily for 7 days, 1/2 tab for 14 days Zithromax Z-Tod 2 tabs day#1, 1 6tabs Muna 01/03/2016 - 250mg Tablets tab daily for 4 MD Leonel 02/11/2016 days Cephalexin one 4 times Unknown 11/15/2015 - 500mg Tablets daily for 7 days 11/23/2015 Valsartan 1 by mouth every 30tabs I10 Daxa 10/27/2015 - 80mg Tablets day Dean James 10/27/2015 Valsartan 1 and half by 45tabs I10 Daxa 10/27/2015 - 40mg Tablets mouth every day Dean James 04/21/2016 Valsartan Take 1 Tablet By 30tabs I10 Daxa 08/24/2015 - 40mg Tablets Mouth One Time Dean James 10/27/2015 Daily Compression Stockings knee high - wear 1Pair R60.0 Daxa 07/13/2015 - 20-30mm daily Dean James 10/11/2015 HG Misc Synthroid 2 by mouth one 34tabs Daxa 05/08/2015 - 50mcg Tablets time on Sunday Dean James 07/24/2018 and Zonisamide 3 tabs every 90caps Constance Gong 02/24/2015 - 25mg Capsules night [id number], Dean Berry 05/05/2015 then 2 tabs every night x3 weeks, then 1 tab every night x3 weeks, then Stop Zonisamide 1 cap by mouth 30caps Constance Gong 02/09/2015 - 50mg Capsules every night Dean Berry 05/05/2015 Advair HFA use 2 1units 496 Daxa 01/13/2015 - 115-21mcg/Act inhalations Dean James 01/14/2015 Aerosol twice daily Breo Ellipta 1 inhalation 28units 496 Daxa 11/06/2014 - 100-25mcg/Inh once daily Dean James 01/13/2015 Aerosol Advair Diskus 1 inhalation 60units 496 Daxa 08/10/2014 - 250-50mcg/Dose twice daily Dean James 11/06/2014 Aerosol Levothyroxine Sodium 1 by mouth every 34tabs Daxa 08/10/2014 - 50mcg day Dean James 05/08/2015 Tablets Levothyroxine Sodium 1 and 1/2 by 45tabs Daxa 06/05/2014 - 25mcg mouth every day Dean James 08/10/2014 Tablets Oxycodone-Acetaminophen 1 tabs po q8 hrs 90tabs Lena Choudhury, 12/03/2013 - 5-325mg prn pain M.D. 12/26/2013 Tablets Cephalexin 1 by mouth four 21caps Lena Choudhury, 11/03/2013 - 500mg Capsules times a day for M.D. 12/03/2013 10 days Mirtazapine take 1 tablet by 30tabs 311 Lena Choudhury, 11/03/2013 - 7.5mg Tablets mouth nightly M.D. 12/03/2013 Ventolin HFA 2 puffs po q4hrs 18gm Lena Choudhury, 11/03/2013 - 108(90Base) prn M.D. 12/26/2013 mcg/Act Aerosol Cosyntropin 250mcg iv/im 1ml Lena Choudhury, 09/07/2013 - 0.25mg/ml Solution once M.D. 11/03/2013 Oxygen discontinue 496 Lena Choudhury, 09/03/2013 - [facility] oxygen therapy. M.D. 06/05/2014 Albuterol Sulfate 1 vial via 100units 496 Lena Choudhury, 08/18/2013 - (2.5mg/3ML) nebulizer 4 M.D. 06/05/2014 0.083% Nebulizer times daily as needed Prednisone Take 2 tablets x 20tabs 496 Lena Choudhury, 08/18/2013 - 10mg Tablets 5 days, then M.D. 09/03/2013 take 1 tablet x 5 days, then take 1/2 tablet x 5 days, then stop Azithromycin two tabs day 6tabs 466.0 Lena Choudhury, 08/08/2013 - 250mg Tablets one, one daily M.D. 08/18/2013 till gone Prednisone 4 tabs po days 20tabs 466.0 Lena Choudhury, 08/08/2013 - 10mg Tablets 1-2; 3 tabs po M.D. 08/18/2013 on days 3-4, 2 tabs po on days 5-6, 1 tab po days 7-8 Zonisamide 1 tab by mouth 30caps Barbie Dougherty, 06/10/2013 - 100mg Capsules every night at RN HYPERBARIC 02/09/2015 bedtime Advair Diskus 1 inhalation 60units 496 Lena Choudhury, 01/24/2013 - 100-50mcg/Dose twice daily M.D. 01/27/2013 Aerosol Levetiracetam 1 po qhs 30tabs Constance Gong 10/22/2012 - 500mg Tablets Dean Berry 05/14/2013 Topiramate 1 bid for 1 week 240tabs Yunier Hernández 08/23/2012 - 25mg Tablets then 2 bid for 1 Dean Christian 10/22/2012 week then 3 bid for 1 wk then 4 bid Vimpat 1 bid for 2 wks 180tabs Yunier Hernández 08/21/2012 - 50mg Tablets then 2 bid for 2 Dean Christian 08/23/2012 wks then 3 bid Zonisamide 2 caps by mouth 180caps Constance Gong 06/19/2012 - 50mg Capsules every night Dean Berry 08/23/2012 Lamotrigine 2-4 tabs by 120tahallie Gong 06/06/2012 - 25mg Tablets mouth every day Dean Berry 06/19/2012 as directed Prednisone as directed Unknown - 25mg Tablets 07/09/2015 Prednisone 10 mg. taper fro Unknown - 10mg Tablets 5 to 0 over 5 07/13/2015 days. Azithromycin 2 tabs by mouth Unknown - 250mg Tablets every day x1 07/09/2015 day, 1 tab by mouth every day x 4 days Guaifenesin 1-2 teaspoon by Unknown - 100mg/5ML Solution mouth every 4-6 06/26/2015 as needed cough Cefuroxime Axetil one tablet twice Unknown - 250mg Tablets daily for 10 02/14/2016 days. Melatonin 1 by mouth every Unknown - 3mg Capsules night at bedtime 02/22/2017 Clotrimazole use 1 rohith 5 Unknown - 10mg Rohith times daily for 02/11/2016 7 days Combivent Respimat Unknown - 04/17/2016 20-100mcg/Act Aerosol Cefuroxime Axetil one tablet twice Unknown - 250mg Tablets daily for 10 02/08/2016 days. Clotrimazole Dissolve 1 Unknown - 10mg Rohith Tablet In Mouth 02/22/2017 5 Times Daily prn Hydrochlorothiazide 1 by mouth every Unknown - 25mg day 06/18/2017 Tablets Oxycodone HCL 1-2 tabs by Unknown - 5mg Tablets mouth every 4 09/03/2017 hours as needed Dyazide 1 by mouth every Unknown - 37.5-25mg Capsules day 12/27/2017 Percocet 1 tab by mouth 50tabs Daxa - 5-325mg Tablets every 4-6 hours Dean James 01/14/2018 as needed pain Tramadol HCL 1-2 tablets by 120tabs Daxa - 50mg Tablets mouth every 6 Cotton M.D. 02/17/2018 hours as needed pain Cefadroxil 1 by mouth 4 Unknown - 500mg Capsules times a day for 06/17/2018 7 days Domeboro 3x a day for 3 Unknown - Packet days 08/15/2018 Cephalexin Unknown - 500mg Capsules 06/24/2018 Benicar 1 po qd Unknown - 20mg Tablets 12/03/2013 Metoprolol 1 po qd 90units Unknown - 25mg 07/09/2013 Aspirin Adult Low 1 po qd 30units Unknown - Strength 04/17/2016 81mg [place] Spiriva Handihaler 1 inhalation po Unknown - 18mcg qam 01/24/2013 Capsules Ventolin HFA 2 puffs po q4hrs 1units Unknown - 108(90Base) mcg/ac prn 11/03/2013 Aerosol Combivent inhale 2 puffs 14.700gm Daxa - 18-103mcg/Act Aerosol by mouth 4 times Dean James 07/28/2014 per day for chronic obstructive lung disease Zonisamide 2 caps by mouth 60caps Constance MCorbin - 50mg Capsules every night as Dean Berry 06/10/2013 directed Multi Complete daily prn Unknown - Capsules 07/09/2013 Ipratropium 1 vial in 90units 496 Lena Choudhury - [place]/Albuterol Sulfate nebulizer three M.D. 08/18/2013 times a day as 0.5-2.5(3)mg/3ML Solution needed for asthma Nystatin qid, swish and 16oz Unknown - [id number]/ML swallow for 7 11/03/2013 Suspension days Chlorhexadine Gluconate rinse/spit 10- 600ml Unknown - Oral Rinse ml tid 11/03/2013 0.12% Solution Oxycodone/Acetaminophen 1 tabs po q 6 Unknown - 5-325mg hrs prn pain 11/03/2013 Tablets Oxycodone/Acetaminophen 1 tabs po q8 hrs 90tabs Lena Choudhury, - 5-325mg prn pain M.D. 12/03/2013 Tablets Oxycodone-Acetaminophen take 2 tab by 120tabs Unknown - mouth every 12 12/26/2013 10-325mg Tablets hours as needed Oxycodone HCL 1 tablet by 21tabs Unknown - 10mg Tablets mouth every 6 07/30/2014 hours as needed - Dr. Martínez Fentanyl Patch Unknown - 08/10/2014 Doxycycline Hyclate one tablet twice Unknown - 100mg daily for 10 06/08/2015 Capsules days. Levofloxacin one tablet daily Unknown - 750mg Tablets for 10 days. 06/23/2015 Medications Administered in Office Medication SIG Qnty Indications Ordering Provider Date Inj, Regadenoson, 0.1 MG Erick Garcia M.D., 05/02/2016 Injection FACAGUEDA [place] Technetium TC 99M Eirck Garcia M.D., 05/02/2016 Tetrofosmin, Per Unit Dose AGUEDA SIM Up To 40 Millicuries Injection Inj, Regadenoson, 0.1 MG Merlin Nair M.D. 09/18/2012 Injection Technetium TC 99M Merlin Nair M.D. 09/18/2012 Tetrofosmin, Per Unit Dose Up To 40 Millicuries Injection Immunizations CPT Code Status Date Vaccine Reaction Lot # [id number] Given 05/03/2018 Fluzone High Dose [id number] Given 04/28/2016 Influenza Virus Vaccine, no reaction noted .. [id number] Quadrivalent, Split, hh Preservative Free [id number] Given 07/13/2015 Influenza Virus Vaccine, [id number] Quadrivalent, Split, Preservative Free 23372 Given 11/06/2014 Pneumococcal Conjugate [id number] Vaccine 13 Valent For Intramuscular Use 80878 Given 06/05/2014 Flu Vaccine Split Virus [id number] Preservative Free For Indiv 3Yr Older [id number] Given 09/03/2013 Fluvirin Im 3Yrs And Older 31156 Given 09/03/2013 Pneumonia Vaccine [id number] Vital Signs Date Vital Result Comment 03/04/2019 3:42pm Height 61 inches 5'1" Weight 90.00 lb Heart Rate 83 /min BP Systolic 148 mmHg BP Diastolic 86 mmHg BP Systolic Sitting 137 mmHg recheck BP Diastolic Sitting 79 mmHg recheck O2 % BldC Oximetry 97 % on 2l BMI (Body Mass Index) 17.0 kg/m2 01/28/2019 10:13am Height 61 inches 5'1" Heart Rate 102 /min BP Systolic Sitting 118 mmHg BP Diastolic Sitting 72 mmHg Body Temperature 97.4 F O2 % BldC Oximetry 95 % 2L o2 11/18/2018 11:02am Height 61 inches 5'1" Weight 93.00 lb Heart Rate 84 /min BP Systolic Sitting 118 mmHg BP Diastolic Sitting 69 mmHg O2 % BldC Oximetry 97 % BMI (Body Mass Index) 17.6 kg/m2 10/31/2018 10:14am Height 61 inches 5'1" Weight 93.00 lb Heart Rate 80 /min BP Systolic Sitting 136 mmHg Rue peds cuff BP Diastolic Sitting 74 mmHg Rue peds cuff Respiratory Rate 12 /min BMI (Body Mass Index) 17.6 kg/m2 08/20/2018 10:01am Height 61 inches 5'1" Weight 87.00 lb Heart Rate 74 /min BP Systolic Sitting 137 mmHg BP Diastolic Sitting 70 mmHg O2 % BldC Oximetry 98 % on 2liters BMI (Body Mass Index) 16.4 kg/m2 08/16/2018 2:25pm Height 61 inches 5'1" Weight 86.75 lb Heart Rate 75 /min BP Systolic 184 mmHg BP Diastolic 93 mmHg Body Temperature 97.3 F O2 % BldC Oximetry 99 % with oxygen BMI (Body Mass Index) 16.4 kg/m2 06/17/2018 10:05am Height 61 inches 5'1" Weight 88.00 lb wearing her oxygen concentrator Heart Rate 92 /min BP Systolic Sitting 189 mmHg BP Diastolic Sitting 95 mmHg O2 % BldC Oximetry 99 % on 2 liters BMI (Body Mass Index) 16.6 kg/m2 05/01/2018 10:35am Height 61 inches 5'1" Weight 80.00 lb Heart Rate 90 /min BP Systolic Sitting 136 mmHg Rue small cuff BP Diastolic Sitting 108 mmHg Rue small cuff Respiratory Rate 16 /min O2 % BldC Oximetry 98 % On Poc via cannula set to 2 BMI (Body Mass Index) 15.1 kg/m2 02/18/2018 10:15am Height 61 inches 5'1" Weight 80.00 lb BP Systolic 160 mmHg BP Diastolic 100 mmHg Body Temperature 97.6 F BMI (Body Mass Index) 15.1 kg/m2 02/06/2018 10:26am Height 61 inches 5'1" Heart Rate 90 /min BP Systolic 122 mmHg BP Diastolic 84 mmHg Respiratory Rate 20 /min Pain Level 1 01/14/2018 10:25am Height 61 inches 5'1" Weight 79.00 lb Heart Rate 94 /min BP Systolic Sitting 188 mmHg BP Diastolic Sitting 86 mmHg O2 % BldC Oximetry 99 % on 2 liter, 87% on Ra BMI (Body Mass Index) 14.9 kg/m2 01/09/2018 10:08am Heart Rate 80 /min BP Systolic 150 mmHg BP Diastolic 76 mmHg Respiratory Rate 20 /min Pain Level 3 01/07/2018 10:39am Height 61 inches 5'1" Heart Rate 96 /min BP Systolic 136 mmHg BP Diastolic 80 mmHg Respiratory Rate 18 /min Body Temperature 97.6 F Pain Level 0 10/29/2017 1:26pm Height 61 inches 5'1" Weight 84.12 lb Heart Rate 68 /min BP Systolic Sitting 148 mmHg Lue peds cuff BP Diastolic Sitting 82 mmHg Lue peds cuff Respiratory Rate 12 /min O2 % BldC Oximetry 91 % BMI (Body Mass Index) 15.9 kg/m2 10/12/2017 11:10am Weight 84.75 lb Heart Rate 93 /min BP Systolic Sitting 160 mmHg BP Diastolic Sitting 96 mmHg O2 % BldC Oximetry 99 % W 2L 02 via NC 09/21/2017 11:16am Height 61 inches 5'1" Weight 80.00 lb BP Systolic 144 mmHg BP Diastolic 96 mmHg Respiratory Rate 22 /min Body Temperature 97.7 F Pain Level 4 BMI (Body Mass Index) 15.1 kg/m2 06/15/2017 10:37am Height 61 inches 5'1" Weight 80.00 lb Heart Rate 72 /min Respiratory Rate 20 /min Body Temperature 97.8 F BMI (Body Mass Index) 15.1 kg/m2 03/27/2017 10:40am Height 61 inches 5'1" Weight 80.00 lb Heart Rate 86 /min BP Systolic 136 mmHg BP Diastolic 80 mmHg Body Temperature 98.6 F O2 % BldC Oximetry 96 % 2 liers O2 NC BMI (Body Mass Index) 15.1 kg/m2 03/01/2017 1:40pm Height 61 inches 5'1" Weight 82.00 lb Heart Rate 76 /min BP Systolic Sitting 138 mmHg BP Diastolic Sitting 78 mmHg Respiratory Rate 20 /min O2 % BldC Oximetry 97 % O2 via NC @ 2LPM BMI (Body Mass Index) 15.5 kg/m2 02/22/2017 10:57am Heart Rate 89 /min BP Systolic Sitting 136 mmHg BP Diastolic Sitting 90 mmHg O2 % BldC Oximetry 85 % 2 L O2 08/25/2016 10:57am Height 61 inches 5'1" Weight 92.00 lb Heart Rate 90 /min BP Systolic Sitting 144 mmHg BP Diastolic Sitting 94 mmHg Body Temperature 97.8 F O2 % BldC Oximetry 96 % BMI (Body Mass Index) 17.4 kg/m2 08/01/2016 9:59am Weight 91.00 lb Heart Rate 87 /min BP Systolic 132 mmHg BP Diastolic 80 mmHg Respiratory Rate 16 /min O2 % BldC Oximetry 90 % 05/30/2016 10:37am Weight 91.00 lb with shoes Heart Rate 108 /min BP Systolic Sitting 130 mmHg BP Diastolic Sitting 76 mmHg O2 % BldC Oximetry 99 % on 2 liter 05/17/2016 9:34am Height 61 inches 5'1" Weight 91.38 lb Heart Rate 105 /min BP Systolic 178 mmHg BP Diastolic 90 mmHg Respiratory Rate 20 /min O2 % BldC Oximetry 99 % 3 liters BMI (Body Mass Index) 17.3 kg/m2 04/28/2016 11:55am Weight 93.00 lb Heart Rate 104 /min BP Systolic Sitting 160 mmHg BP Diastolic Sitting 92 mmHg O2 % BldC Oximetry 94 % 04/21/2016 5:44pm Weight 91.50 lb Heart Rate 100 /min BP Systolic Sitting 190 mmHg 190/120 (L) BP Diastolic Sitting 110 mmHg 190/120 (L) O2 % BldC Oximetry 91 % 02/14/2016 11:37am Height 61 inches 5'1" Weight 90.00 lb Heart Rate 99 /min BP Systolic Sitting 148 mmHg BP Diastolic Sitting 84 mmHg Respiratory Rate 16 /min O2 % BldC Oximetry 97 % BMI (Body Mass Index) 17.0 kg/m2 02/08/2016 10:19am Weight 90.00 lb BP Systolic Sitting 150 mmHg BP Diastolic Sitting 80 mmHg Respiratory Rate 14 /min Body Temperature 98.2 F 11/23/2015 10:01am Weight 93.00 lb Heart Rate 88 /min BP Systolic Sitting 134 mmHg BP Diastolic Sitting 80 mmHg Respiratory Rate 15 /min Body Temperature 98.2 F O2 % BldC Oximetry 96 % 11/16/2015 10:04am Height 61 inches 5'1" Weight 86.00 lb Heart Rate 90 /min BP Systolic 136 mmHg BP Diastolic 84 mmHg Respiratory Rate 14 /min O2 % BldC Oximetry 98 % BMI (Body Mass Index) 16.2 kg/m2 10/12/2015 1:45pm Height 61 inches 5'1" Weight 86.00 lb Heart Rate 93 /min BP Systolic Sitting 144 mmHg BP Diastolic Sitting 82 mmHg Respiratory Rate 14 /min O2 % BldC Oximetry 98 % BMI (Body Mass Index) 16.2 kg/m2 08/24/2015 1:22pm Height 61 inches 5'1" Weight 86.75 lb Heart Rate 104 /min BP Systolic Sitting 164 mmHg BP Diastolic Sitting 94 mmHg Body Temperature 98.2 F O2 % BldC Oximetry 96 % BMI (Body Mass Index) 16.4 kg/m2 07/13/2015 10:04am Weight 82.25 lb Heart Rate 102 /min BP Systolic Sitting 165 mmHg BP Diastolic Sitting 84 mmHg Body Temperature 98.6 F O2 % BldC Oximetry 97 % 06/23/2015 9:21am Weight 81.00 lb Heart Rate 107 /min BP Systolic Sitting 159 mmHg BP Diastolic Sitting 82 mmHg Body Temperature 97.9 F O2 % BldC Oximetry 98 % 06/03/2015 9:14am Weight 80.00 lb Heart Rate 100 /min BP Systolic Sitting 152 mmHg BP Diastolic Sitting 87 mmHg Body Temperature 98.3 F O2 % BldC Oximetry 97 % 02/09/2015 1:22pm Height 61 inches 5'1" Weight 82.00 lb Heart Rate 101 /min BP Systolic Sitting 140 mmHg BP Diastolic Sitting 82 mmHg Body Temperature 98.7 F BMI (Body Mass Index) 15.5 kg/m2 02/09/2015 9:53am Height 61 inches 5'1" Weight 81.00 lb Heart Rate 92 /min BP Systolic Sitting 138 mmHg BP Diastolic Sitting 78 mmHg Respiratory Rate 16 /min BMI (Body Mass Index) 15.3 kg/m2 11/06/2014 1:34pm Weight 86.75 lb Heart Rate 84 /min BP Systolic Sitting 147 mmHg BP Diastolic Sitting 82 mmHg Body Temperature 98.3 F O2 % BldC Oximetry 98 % 08/10/2014 10:25am Height 61 inches 5'1" Weight 80.00 lb Heart Rate 68 /min BP Systolic Sitting 132 mmHg BP Diastolic Sitting 78 mmHg Body Temperature 97.5 F BMI (Body Mass Index) 15.1 kg/m2 06/05/2014 9:42am Weight 80.75 lb Heart Rate 72 /min BP Systolic Sitting 150 mmHg BP Diastolic Sitting 84 mmHg Body Temperature 97.7 F 02/05/2014 8:51am Height 62 inches 5'2" Weight 80.00 lb Heart Rate 72 /min BP Systolic Sitting 118 mmHg BP Diastolic Sitting 50 mmHg Respiratory Rate 16 /min BMI (Body Mass Index) 14.6 kg/m2 12/26/2013 11:24am Weight 84.00 lb Heart Rate 86 /min BP Systolic Sitting 112 mmHg BP Diastolic Sitting 64 mmHg 12/03/2013 11:18am Weight 87.50 lb Heart Rate 84 /min BP Systolic 144 mmHg BP Diastolic 64 mmHg Respiratory Rate 16 /min Body Temperature 97.9 F 11/03/2013 10:01am Weight 84.25 lb ith shoes Heart Rate 88 /min BP Systolic 112 mmHg BP Diastolic 56 mmHg Respiratory Rate 14 /min Body Temperature 98.5 F O2 % BldC Oximetry 97 % 09/29/2013 9:08am Weight 86.00 lb Heart Rate 92 /min BP Systolic Sitting 120 mmHg BP Diastolic Sitting 60 mmHg Respiratory Rate 15 /min Body Temperature 98.6 F O2 % BldC Oximetry 100 % 09/03/2013 11:37am Weight 87.00 lb Heart Rate 70 /min BP Systolic Sitting 118 mmHg BP Diastolic Sitting 80 mmHg O2 % BldC Oximetry 96 % dropped to 86 after 3 laps 08/18/2013 3:55pm Weight 82.00 lb Heart Rate 68 /min BP Systolic Sitting 100 mmHg BP Diastolic Sitting 62 mmHg O2 % BldC Oximetry 92 % 08/08/2013 11:57am Weight 88.00 lb Heart Rate 70 /min BP Systolic Sitting 110 mmHg BP Diastolic Sitting 60 mmHg O2 % BldC Oximetry 93 % 07/09/2013 9:38am Height 62 inches 5'2" Weight 87.00 lb Heart Rate 88 /min BP Systolic 126 mmHg BP Diastolic 58 mmHg BMI (Body Mass Index) 15.9 kg/m2 06/10/2013 9:48am Heart Rate 76 /min BP Systolic Sitting 102 mmHg BP Diastolic Sitting 62 mmHg Respiratory Rate 18 /min 05/14/2013 9:28am Weight 86.25 lb Heart Rate 88 /min BP Systolic 138 mmHg BP Diastolic 50 mmHg O2 % BldC Oximetry 91 % 02/28/2013 1:50pm Weight 85.00 lb Heart Rate 82 /min BP Systolic Sitting 110 mmHg BP Diastolic Sitting 64 mmHg O2 % BldC Oximetry 93 % 01/24/2013 11:07am Height 61 inches 5'1" Weight 88.00 lb Heart Rate 84 /min BP Systolic Sitting 118 mmHg BP Diastolic Sitting 70 mmHg BMI (Body Mass Index) 16.6 kg/m2 Results Test Date Facility Test Result H/L Range Note Laboratory test 01/16/2019 [facility] Troponin-I 0.00 ng/mL < 0.04 [address] (TnI) [place] [address] [phone] D Dimer Quantitative 820 ng/mL High Less Than 230 2 B-Type Natriuretic Peptide BNP 184 pg/mL High <=100 Blood Culture SEE RESULT BELOW 3 CBC Auto 01/16/2019 [facility] White Blood 10.1 10^3/uL Normal 3.5-10.[address] [place] [address] [phone] Red Blood Count 3.07 10^6/uL Low 3.70-4.87 Hemoglobin 10.5 g/dL Low 12.0-16.0 Hematocrit 32 % Low 35-47 Mean Corpuscular Volume 103 fL High 80-97 Mean Corpuscular Hemoglobin 34 pg High 27-31 Mean Corpuscular HGB Conc 33 g/dL Normal 31-36 Red Cell Distribution Width 12 % Normal 10-15 Platelet Count 308 10^3/uL Normal 150-450 Mean Platelet Volume 6.5 fL Low 7.4-10.4 Abs Neutrophils 8.7 10^3/uL High 1.5-7.7 Abs Lymphocytes 0.4 10^3/uL Low 1.0-4.8 Abs Monocytes 0.9 10^3/uL High 0-0.8 Abs Eosinophils 0.1 10^3/uL Normal 0-0.6 Abs Basophils 0.0 10^3/uL Normal 0-0.2 Abs Nucleated RBC 0.0 10^3/uL Granulocyte % 85.9 % Lymphocyte % 3.8 % Monocyte % 8.6 % Eosinophil % 1.5 % Basophil % 0.2 % Nucleated Red Blood Cells % 0.0 Laboratory test 01/16/2019 [facility] Lactic Acid 1.0 mmol/L Normal 0.5-2.0 4 finding [address] [place] [address] [phone] Comp Metabolic 01/16/2019 [facility] Sodium 133 mmol/L Low 135 -145 Panel [address] [place] [address] [phone] Potassium 3.9 mmol/L Normal 3.5-5.0 Chloride 94 mmol/L Low 101-111 Co2 Carbon Dioxide 35 mmol/L High 22-32 Anion Gap 4 mmol/L Normal 2-11 Glucose 144 mg/dL High 70-100 Blood Urea Nitrogen 11 mg/dL Normal 6-24 Creatinine 0.54 mg/dL Normal 0.51-0.95 BUN/Creatinine Ratio 20.4 High 8-20 Calcium 8.9 mg/dL Normal 8.6-10.3 Total Protein 6.6 g/dL Normal 6.4-8.9 Albumin 3.3 g/dL Normal 3.2-5.2 Globulin 3.3 g/dL Normal 2-4 Albumin/Globulin Ratio 1.0 Normal 1-3 Total Bilirubin 0.40 mg/dL Normal 0.2-1.0 Alkaline Phosphatase 163 U/L High 34-104 Alt 19 U/L Normal 7-52 Ast 27 U/L Normal 13-39 Egfr Non- 111.3 >60 Egfr 134.7 >60 5 CBC Auto 01/10/2019 [facility] Abs Neutrophils 5.6 10^3/uL Normal 1.5-7.[address] [place] [address] [phone] Abs Lymphocytes 0.6 10^3/uL Low 1.0-4.8 Abs Monocytes 0.8 10^3/uL Normal 0-0.8 Abs Eosinophils 0.1 10^3/uL Normal 0-0.6 Abs Basophils 0.0 10^3/uL Normal 0-0.2 Abs Nucleated RBC 0.0 10^3/uL Granulocyte % 78.4 % Lymphocyte % 8.3 % Monocyte % 10.8 % Eosinophil % 2.1 % Basophil % 0.4 % Nucleated Red Blood Cells % 0.6 White Blood Count 7.2 10^3/uL Normal 3.5-10.8 6 Red Blood Count 2.87 10^6/uL Low 3.70-4.87 Hemoglobin 10.0 g/dL Low 12.0-16.0 Hematocrit 30 % Low 35-47 Mean Corpuscular Volume 105 fL High 80-97 7 Mean Corpuscular Hemoglobin 35 pg High 27-31 Mean Corpuscular HGB Conc 33 g/dL Normal 31-36 Red Cell Distribution Width 12 % Normal 10-15 Platelet Count (SEE NOTE) 10^3/uL 150-450 8 Basic Metabolic 01/10/2019 [facility] Sodium 135 mmol/L Normal 135-[address] [place] [address] [phone] Chloride 98 mmol/L Low 101-111 Co2 Carbon Dioxide 28 mmol/L Normal 22-32 Calcium 8.7 mg/dL Normal 8.6-10.3 Potassium TNP mmol/L 3.5-5.0 9 Anion Gap 9 mmol/L Normal 2-11 Glucose 104 mg/dL High 70-100 Blood Urea Nitrogen 12 mg/dL Normal 6-24 Creatinine 0.44 mg/dL Low 0.51-0.95 BUN/Creatinine Ratio 27.3 High 8-20 Egfr Non- 141.0 >60 Egfr 170.6 >60 10 CBC Auto 01/03/2019 [facility] White Blood 10.6 10^3/uL Normal 3.5-10.[address] [place] [address] [phone] Red Blood Count 3.33 10^6/uL Low 3.70-4.87 Hemoglobin 11.5 g/dL Low 12.0-16.0 Hematocrit 34 % Low 35-47 Mean Corpuscular Volume 103 fL High 80-97 Mean Corpuscular Hemoglobin 35 pg High 27-31 Mean Corpuscular HGB Conc 34 g/dL Normal 31-36 Red Cell Distribution Width 12 % Normal 10-15 Platelet Count 111 10^3/uL Low 150-450 Mean Platelet Volume 7.3 fL Low 7.4-10.4 Abs Neutrophils 9.4 10^3/uL High 1.5-7.7 Abs Lymphocytes 0.3 10^3/uL Low 1.0-4.8 Abs Monocytes 0.8 10^3/uL Normal 0-0.8 Abs Eosinophils 0.0 10^3/uL Normal 0-0.6 Abs Basophils 0.0 10^3/uL Normal 0-0.2 Abs Nucleated RBC 0.0 10^3/uL Granulocyte % 88.6 % Lymphocyte % 2.9 % Monocyte % 8.0 % Eosinophil % 0.3 % Basophil % 0.2 % Nucleated Red Blood Cells % 0.0 Comp Metabolic Panel 01/03/2019 [facility] Sodium 130 mmol/L Low 135-[address] [place] [address] [phone] Potassium 4.0 mmol/L Normal 3.5-5.0 Chloride 94 mmol/L Low 101-111 Co2 Carbon Dioxide 29 mmol/L Normal 22-32 Anion Gap 7 mmol/L Normal 2-11 Glucose 125 mg/dL High 70-100 Blood Urea Nitrogen 18 mg/dL Normal 6-24 Creatinine 0.42 mg/dL Low 0.51-0.95 BUN/Creatinine Ratio 42.9 High 8-20 Calcium 8.5 mg/dL Low 8.6-10.3 Total Protein 5.8 g/dL Low 6.4-8.9 Albumin 3.1 g/dL Low 3.2-5.2 Globulin 2.7 g/dL Normal 2-4 Albumin/Globulin Ratio 1.1 Normal 1-3 Total Bilirubin 0.70 mg/dL Normal 0.2-1.0 Alkaline Phosphatase 72 U/L Normal 34-104 Alt 55 U/L High 7-52 Ast 84 U/L High 13-39 Egfr Non- 148.7 >60 Egfr 180.0 >60 11 Inr/Protime 01/03/2019 [facility] Inr 1.17 High 0.82-1.[address] [place] [address] [phone] Laboratory test 01/03/2019 [facility] Partial 37.0 Normal 26.0 -38.[address] [place] [address] Time PTT [phone] Folic Acid (Folate) 19.42 ng/mL >3.99 Vitamin B12 701 pg/mL Normal 180-914 13 CBC Auto 06/15/2018 [facility] White Blood 6.0 10^3/uL Normal 3.5-10.8 [address] [place] [address] [phone] Red Blood Count 3.34 10^6/uL Low 4.00-5.40 Hemoglobin 12.0 g/dL Normal 12.0-16.0 Hematocrit 35 % Normal 35-47 Mean Corpuscular Volume 105 fL High 80-97 Mean Corpuscular Hemoglobin 36 pg High 27-31 Mean Corpuscular HGB Conc 34 g/dL Normal 31-36 Red Cell Distribution Width 12 % Normal 10.5-15 Platelet Count 184 10^3/uL Normal 150-450 Mean Platelet Volume 7.5 fL Normal 7.4-10.4 Abs Neutrophils 4.7 10^3/uL Normal 1.5-7.7 Abs Lymphocytes 0.2 10^3/uL Low 1.0-4.8 Abs Monocytes 1.0 10^3/uL High 0-0.8 Abs Eosinophils 0.1 10^3/uL Normal 0-0.6 Abs Basophils 0 10^3/uL Normal 0-0.2 Abs Nucleated RBC 0 10^3/uL Granulocyte % 78.5 % Normal 38-83 Lymphocyte % 3.5 % Low 25-47 Monocyte % 16.9 % High 0-7 Eosinophil % 0.8 % Normal 0-6 Basophil % 0.3 % Normal 0-2 Nucleated Red Blood Cells % 0.5 Basic Metabolic 06/15/2018 [facility] Sodium 133 mmol/L Low 135-[address] [place] [address] [phone] Potassium 4.4 mmol/L Normal 3.5-5.0 Chloride 91 mmol/L Low 101-111 Co2 Carbon Dioxide 38 mmol/L High 22-32 Anion Gap 4 mmol/L Normal 2-11 Glucose 94 mg/dL Normal 70-100 Blood Urea Nitrogen 17 mg/dL Normal 6-24 Creatinine 0.44 mg/dL Low 0.51-0.95 BUN/Creatinine Ratio 38.6 High 8-20 Calcium 9.4 mg/dL Normal 8.6-10.3 Egfr Non- 141.0 >60 Egfr 170.6 >60 15 Laboratory test 06/15/2018 [facility] Uric Acid 1.8 mg/dL Low 2.3-6.6 [address] [place] [address] [phone] C Reactive Protein 75.46 mg/L High <8.01 17 Wound 06/15/2018 [facility] Wound/Misc SEE 18, 19 Culture/Sensi [address] [place] [address] Stain BELOW [phone] Laboratory test 06/15/2018 [facility] MRSA/S. aureus SEE [address] [place] [address] BELOW [phone] Laboratory test 01/23/2018 [facility] TSH (Thyroid 1.35 Normal 0.[address] Stim Horm) mcIU/mL 4-5 [place] [address] .60 [phone] Basic Metabolic 01/23/2018 [facility] Sodium 130 Low [address] mmol/L -14 [place] [address] 5 [phone] Potassium 4.4 mmol/L Normal 3.5-5.0 Chloride 91 mmol/L Low 101-111 Co2 Carbon Dioxide 31 mmol/L Normal 22-32 Anion Gap 8 mmol/L Normal 2-11 Glucose 97 mg/dL Normal 70-100 Blood Urea Nitrogen 9 mg/dL Normal 6-24 Creatinine 0.49 mg/dL Low 0.51-0.95 BUN/Creatinine Ratio 18.4 Normal 8-20 Calcium 9.7 mg/dL Normal 8.6-10.3 Egfr Non- 124.9 >60 Egfr 151.1 >60 21 CBC Auto 11/24/2017 [facility] White Blood 11.2 10^3/uL High 3.5-10.[address] Count [place], [place] [id number] [phone] Red Blood Count 3.06 10^6/uL Low 4.0-5.4 Hemoglobin 11.0 g/dL Low 12.0-16.0 Hematocrit 32 % Low 35-47 Mean Corpuscular Volume 103 fL High 80-97 Mean Corpuscular Hemoglobin 36 pg High 27-31 Mean Corpuscular HGB Conc 35 g/dL Normal 31-36 Red Cell Distribution Width 13 % Normal 10.5-15 Platelet Count 134 10^3/uL Low 150-450 Mean Platelet Volume 6.9 um3 Low 7.4-10.4 Abs Neutrophils 10.1 10^3/uL High 1.5-7.7 Abs Lymphocytes 0.3 10^3/uL Low 1.0-4.8 Abs Monocytes 0.8 10^3/uL Normal 0-0.8 Abs Eosinophils 0 10^3/uL Normal 0-0.6 Abs Basophils 0 10^3/uL Normal 0-0.2 Abs Nucleated RBC 0 10^3/uL Granulocyte % 90.1 % High 38-83 Lymphocyte % 2.5 % Low 25-47 Monocyte % 6.9 % Normal 0-7 Eosinophil % 0.2 % Normal 0-6 Basophil % 0.3 % Normal 0-2 Nucleated Red Blood Cells % 0 Laboratory test 11/24/2017 [facility] Packed Cells SEE RESULTS [address] BELO <SEE NOTE> [place], [place] [id number] [phone] Type & Screen 11/24/2017 [facility] Patient Blood B Positive [address] [place] [address] [phone] Antibody Screen NEGATIVE Type & Screen 11/24/2017 [facility] Patient Blood Type B Positive DRIVE [place], [place] [id number] [phone] Antibody Screen NEGATIVE Laboratory test 11/24/2017 [facility] Partial 30.2 Normal 26.0 -36.[address] [address] Time PTT [phone] Inr/Protime 11/24/2017 [facility] Inr 1.01 Normal 0.77-1.02 [place] [address] [phone] Laboratory test 11/24/2017 [facility] Troponin-I 0.00 ng/mL < 0.[address] (TnI) [place] [address] [phone] Comp Metabolic 11/24/2017 [facility] Sodium 128 mmol/L Low 139 -[address] [place] [address] [phone] Potassium 4.0 mmol/L Normal 3.5-5.0 Chloride 92 mmol/L Low 101-111 Co2 Carbon Dioxide 27 mmol/L Normal 22-32 Anion Gap 9 mmol/L Normal 2-11 Glucose 129 mg/dL High 70-100 Blood Urea Nitrogen 12 mg/dL Normal 6-24 Creatinine 0.40 mg/dL Low 0.51-0.95 BUN/Creatinine Ratio 30.0 High 8-20 Calcium 8.8 mg/dL Normal 8.6-10.3 Total Protein 6.3 g/dL Low 6.4-8.9 Albumin 3.7 g/dL Normal 3.2-5.2 Globulin 2.6 g/dL Normal 2-4 Albumin/Globulin Ratio 1.4 Normal 1-3 Total Bilirubin 0.70 mg/dL Normal 0.2-1.0 Alkaline Phosphatase 80 U/L Normal 34-104 Alt 32 U/L Normal 7-52 Ast 40 U/L High 13-39 Egfr Non- 157.8 >60 Egfr 202.9 >60 23 Lipid Profile 10/10/2017 [facility] Triglycerides 67 mg/dL 24, 25 (Trig/Chol/HDL) [address] [place] [address] [phone] Cholesterol 163 mg/dL 26 HDL Cholesterol 97.0 mg/dL 27 LDL Cholesterol 53 mg/dL 28 Comp Metabolic Panel 10/10/2017 [facility] Sodium 129 mmol/L Low 133-[address] [place] [address] [phone] Potassium 4.1 mmol/L Normal 3.5-5.0 Chloride 91 mmol/L Low 101-111 Co2 Carbon Dioxide 32 mmol/L Normal 22-32 Anion Gap 6 mmol/L Normal 2-11 Glucose 109 mg/dL High 70-100 Blood Urea Nitrogen 9 mg/dL Normal 6-24 Creatinine 0.51 mg/dL Normal 0.51-0.95 BUN/Creatinine Ratio 17.6 Normal 8-20 Calcium 9.5 mg/dL Normal 8.6-10.3 Total Protein 7.2 g/dL Normal 6.4-8.9 Albumin 4.4 g/dL Normal 3.2-5.2 Globulin 2.8 g/dL Normal 2-4 Albumin/Globulin Ratio 1.6 Normal 1-3 Total Bilirubin 0.70 mg/dL Normal 0.2-1.0 Alkaline Phosphatase 96 U/L Normal 34-104 Alt 34 U/L Normal 7-52 Ast 40 U/L High 13-39 Egfr Non- 119.2 >60 Egfr 153.3 >60 29 CBC Auto 10/10/2017 [facility] White Blood 3.7 10^3/uL Normal 3.5-10.[address] [place] [address] [phone] Red Blood Count 3.72 10^6/uL Low 4.0-5.4 Hemoglobin 13.1 g/dL Normal 12.0-16.0 Hematocrit 38 % Normal 35-47 Mean Corpuscular Volume 102 fL High 80-97 Mean Corpuscular Hemoglobin 35 pg High 27-31 Mean Corpuscular HGB Conc 35 g/dL Normal 31-36 Red Cell Distribution Width 14 % Normal 10.5-15 Platelet Count 142 10^3/uL Low 150-450 Mean Platelet Volume 7 um3 Low 7.4-10.4 Abs Neutrophils 2.5 10^3/uL Normal 1.5-7.7 Abs Lymphocytes 0.5 10^3/uL Low 1.0-4.8 Abs Monocytes 0.6 10^3/uL Normal 0-0.8 Abs Eosinophils 0.1 10^3/uL Normal 0-0.6 Abs Basophils 0 10^3/uL Normal 0-0.2 Abs Nucleated RBC 0 10^3/uL Granulocyte % 66.7 % Normal 38-83 Lymphocyte % 14.1 % Low 25-47 Monocyte % 16.7 % High 0-7 Eosinophil % 2.0 % Normal 0-6 Basophil % 0.5 % Normal 0-2 Nucleated Red Blood Cells % 0.1 Laboratory test 10/10/2017 [facility] TSH (Thyroid 7.13 High 0.34-5.60 [address] Stim Horm) mcIU/[place] [address] [phone] Urinalysis 07/22/2017 [facility] Urine Color Straw Profile [address] [place] [address] [phone] Urine Appearance Clear Urine Specific [place] 1.003 Low 1.010-1.030 Urine pH 7.0 Normal 5-9 Urine Urobilinogen Negative Negative Urine Ketones Negative Negative Urine Protein Negative Negative Urine Leukocytes Negative Negative Urine Blood Negative Negative Urine Nitrite Negative Negative Urine Bilirubin Negative Negative Urine Glucose Negative Negative Comp Metabolic Panel 07/22/2017 [facility] Sodium 128 mmol/L Low 133-[address] [place] [address] [phone] Potassium 3.7 mmol/L Normal 3.5-5.0 Chloride 91 mmol/L Low 101-111 Co2 Carbon Dioxide 32 mmol/L Normal 22-32 Anion Gap 5 mmol/L Normal 2-11 Glucose 94 mg/dL Normal 70-100 Blood Urea Nitrogen 5 mg/dL Low 6-24 Creatinine 0.42 mg/dL Low 0.51-0.95 BUN/Creatinine Ratio 11.9 Normal 8-20 Calcium 8.9 mg/dL Normal 8.6-10.3 Total Protein 6.9 g/dL Normal 6.4-8.9 Albumin 3.6 g/dL Normal 3.2-5.2 Globulin 3.3 g/dL Normal 2-4 Albumin/Globulin Ratio 1.1 Normal 1-3 Total Bilirubin 0.80 mg/dL Normal 0.2-1.0 Alkaline Phosphatase 163 U/L High 34-104 Alt 9 U/L Normal 7-52 Ast 22 U/L Normal 13-39 Egfr Non- 149.2 >60 Egfr 191.8 >60 31 Laboratory test 07/22/2017 [facility] Lipase < 10 U/L Low 11.0 -82.[address] [place] [address] [phone] C Reactive Protein 16.37 mg/L High < 5.00 32 Lactic Acid 1.2 mmol/L Normal 0.5-2.0 33 CBC Auto 07/22/2017 [facility] White Blood 5.8 10^3/uL Normal 3.5-10.[address] [place] [address] [phone] Red Blood Count 3.99 10^6/uL Low 4.0-5.4 Hemoglobin 13.1 g/dL Normal 12.0-16.0 Hematocrit 39 % Normal 35-47 Mean Corpuscular Volume 99 fL High 80-97 Mean Corpuscular Hemoglobin 33 pg High 27-31 Mean Corpuscular HGB Conc 33 g/dL Normal 31-36 Red Cell Distribution Width 16 % High 10.5-15 Platelet Count 139 10^3/uL Low 150-450 Mean Platelet Volume 7 um3 Low 7.4-10.4 Abs Neutrophils 4.4 10^3/uL Normal 1.5-7.7 Abs Lymphocytes 0.5 10^3/uL Low 1.0-4.8 Abs Monocytes 0.8 10^3/uL Normal 0-0.8 Abs Eosinophils 0 10^3/uL Normal 0-0.6 Abs Basophils 0 10^3/uL Normal 0-0.2 Abs Nucleated RBC 0 10^3/uL Granulocyte % 76.1 % Normal 38-83 Lymphocyte % 9.2 % Low 25-47 Monocyte % 13.7 % High 1-9 Eosinophil % 0.7 % Normal 0-6 Basophil % 0.3 % Normal 0-2 Nucleated Red Blood Cells % 0 Inr/Protime 07/22/2017 [facility] Inr 1.05 High 0.77-1.[address] [place] [address] [phone] Laboratory test 07/22/2017 [facility] Partial 32.3 Normal 26.0 -36.[address] [address] Time PTT [phone] B-Type Natriuretic Peptide BNP 168 pg/mL High 35 CBC Auto 02/20/2017 [facility] White Blood 6.1 10^3/uL Normal 3.5-10.[address] [place] [address] [phone] Red Blood Count 3.77 10^6/uL Low 4.0-5.4 Hemoglobin 13.5 g/dL Normal 12.0-16.0 Hematocrit 40 % Normal 35-47 Mean Corpuscular Volume 106 fL High 80-97 Mean Corpuscular Hemoglobin 36 pg High 27-31 Mean Corpuscular HGB Conc 34 g/dL Normal 31-36 Red Cell Distribution Width 11 % Normal 10.5-15 Platelet Count 145 10^3/uL Low 150-450 Mean Platelet Volume 8 um3 Normal 7.4-10.4 Abs Neutrophils 5.1 10^3/uL Normal 1.5-7.7 Abs Lymphocytes 0.2 10^3/uL Low 1.0-4.8 Abs Monocytes 0.7 10^3/uL Normal 0-0.8 Abs Eosinophils 0 10^3/uL Normal 0-0.6 Abs Basophils 0.1 10^3/uL Normal 0-0.2 Abs Nucleated RBC 0 10^3/uL Normal Granulocyte % 82.8 % Normal 38-83 Lymphocyte % 3.7 % Low 25-47 Monocyte % 12.0 % High 1-9 Eosinophil % 0.4 % Normal 0-6 Basophil % 1.1 % Normal 0-2 Nucleated Red Blood Cells % 0 Normal Laboratory 02/20/2017 [facility] TSH (Thyroid 1.74 Normal 0.34 -5.60 test finding [address] Stim Horm) mcIU/mL [place], [place] [id number] [phone] CBC Auto Diff 08/23/2016 [facility] White Blood 5.8 10^3/uL Normal 3.5-10.[address] [place] [address] [phone] Red Blood Count 4.02 10^6/uL Normal 4.0-5.4 Hemoglobin 14.2 g/dL Normal 12.0-16.0 Hematocrit 42 % Normal 35-47 Mean Corpuscular Volume 104 fL High 80-97 Mean Corpuscular Hemoglobin 35 pg High 27-31 Mean Corpuscular HGB Conc 34 g/dL Normal 31-36 Red Cell Distribution Width 11 % Normal 10.5-15 Platelet Count 182 10^3/uL Normal 150-450 Mean Platelet Volume 7 um3 Low 7.4-10.4 Abs Neutrophils 4.5 10^3/uL Normal 1.5-7.7 Abs Lymphocytes 0.5 10^3/uL Low 1.0-4.8 Abs Monocytes 0.8 10^3/uL Normal 0-0.8 Abs Eosinophils 0 10^3/uL Normal 0-0.6 Abs Basophils 0 10^3/uL Normal 0-0.2 Abs Nucleated RBC 0 10^3/uL Normal Granulocyte % 76.2 % Normal 38-83 Lymphocyte % 9.2 % Low 25-47 Monocyte % 13.3 % High 1-9 Eosinophil % 0.7 % Normal 0-6 Basophil % 0.6 % Normal 0-2 Nucleated Red Blood Cells % 0 Normal Laboratory 08/23/2016 [facility] TSH (Thyroid 1.88 Normal 0.34 -5.60 test finding [address] Stim Horm) mcIU/[place] [address] [phone] Lipid Profile 05/24/2016 [facility] Triglycerides 73 mg/dL Normal 36 (Trig/Chol/HD [address] L) [place] [address] [phone] Cholesterol 197 mg/dL Normal 37 HDL Cholesterol 123.5 mg/dL Normal 38 LDL Cholesterol 59 mg/dL Normal 39 Comp Metabolic 05/24/2016 [facility] Sodium 133 mmol/L Normal 133-[address] [place] [address] [phone] Potassium 3.9 mmol/L Normal 3.5-5.0 Chloride 95 mmol/L Low 101-111 Co2 Carbon Dioxide 34 mmol/L High 22-32 Anion Gap 4 mmol/L Normal 2-11 Glucose 85 mg/dL Normal 70-100 Blood Urea Nitrogen 6 mg/dL Normal 6-24 Creatinine 0.54 mg/dL Normal 0.51-0.95 BUN/Creatinine Ratio 11.1 Normal 8-20 Calcium 9.2 mg/dL Normal 8.6-10.3 Total Protein 6.5 g/dL Normal 6.4-8.9 Albumin 4.1 g/dL Normal 3.2-5.2 Globulin 2.4 g/dL Normal 2-4 Albumin/Globulin Ratio 1.7 Normal 1-3 Total Bilirubin 0.60 mg/dL Normal 0.2-1.0 Alkaline Phosphatase 65 U/L Normal 34-104 Alt 26 U/L Normal 7-52 Ast 34 U/L Normal 13-39 Egfr Non- 111.9 Normal >60 Egfr 144.0 Normal >60 40 CBC Auto 05/24/2016 [facility] White Blood 4.1 10^3/uL Normal 3.5-10.[address] [place] [address] [phone] Red Blood Count 3.56 10^6/uL Low 4.0-5.4 Hemoglobin 13.0 g/dL Normal 12.0-16.0 Hematocrit 38 % Normal 35-47 Mean Corpuscular Volume 107 fL High 80-97 Mean Corpuscular Hemoglobin 36 pg High 27-31 Mean Corpuscular HGB Conc 34 g/dL Normal 31-36 Red Cell Distribution Width 11 % Normal 10.5-15 Platelet Count 146 10^3/uL Low 150-450 Mean Platelet Volume 7 um3 Low 7.4-10.4 Abs Neutrophils 3.0 10^3/uL Normal 1.5-7.7 Abs Lymphocytes 0.4 10^3/uL Low 1.0-4.8 Abs Monocytes 0.7 10^3/uL Normal 0-0.8 Abs Eosinophils 0 10^3/uL Normal 0-0.6 Abs Basophils 0 10^3/uL Normal 0-0.2 Abs Nucleated RBC 0 10^3/uL Normal Granulocyte % 71.9 % Normal 38-83 Lymphocyte % 10.6 % Low 25-47 Monocyte % 16.2 % High 1-9 Eosinophil % 0.8 % Normal 0-6 Basophil % 0.5 % Normal 0-2 Nucleated Red Blood Cells % 0.1 Normal Laboratory test 05/24/2016 [facility] Vitamin D 32.6 ng/mL Normal 30-[address] Total 25(Oh) [place] [address] [phone] CBC Auto Diff 03/15/2016 [facility] White Blood 6.8 Normal 3.5 -10.[address] Count 10^3/[place] [address] [phone] Red Blood Count 3.67 10^6/uL Low 4.0-5.4 Hemoglobin 13.7 g/dL Normal 12.0-16.0 Hematocrit 40 % Normal 35-47 Mean Corpuscular Volume 109 fL High 80-97 Mean Corpuscular Hemoglobin 37 pg High 27-31 Mean Corpuscular HGB Conc 34 g/dL Normal 31-36 Red Cell Distribution Width 13 % Normal 10.5-15 Platelet Count 175 10^3/uL Normal 150-450 Mean Platelet Volume 8 um3 Normal 7.4-10.4 Abs Neutrophils 5.8 10^3/uL Normal 1.5-7.7 Abs Lymphocytes 0.3 10^3/uL Low 1.0-4.8 Abs Monocytes 0.6 10^3/uL Normal 0-0.8 Abs Eosinophils 0 10^3/uL Normal 0-0.6 Abs Basophils 0.1 10^3/uL Normal 0-0.2 Abs Nucleated RBC 0 10^3/uL Normal Granulocyte % 84.8 % High 38-83 Lymphocyte % 4.5 % Low 25-47 Monocyte % 9.0 % Normal 1-9 Eosinophil % 0.3 % Normal 0-6 Basophil % 1.4 % Normal 0-2 Nucleated Red Blood Cells % 0 Normal Basic Metabolic 03/15/2016 [facility] Sodium 135 mmol/L Normal 133-[address] [place] [address] [phone] Potassium 4.2 mmol/L Normal 3.5-5.0 Chloride 96 mmol/L Low 101-111 Co2 Carbon Dioxide 31 mmol/L Normal 22-32 Anion Gap 8 mmol/L Normal 2-11 Glucose 90 mg/dL Normal 70-100 Blood Urea Nitrogen 12 mg/dL Normal 6-24 Creatinine 0.69 mg/dL Normal 0.51-0.95 BUN/Creatinine Ratio 17.4 Normal 8-20 Calcium 9.4 mg/dL Normal 8.6-10.3 Egfr Non- 84.6 Normal >60 Egfr 108.8 Normal >60 41 Laboratory test 01/28/2016 [facility] B-Type 69 pg/mL Normal [address] [place] [address] Peptide BNP [phone] Osmolality Serum 276 mOsm/kg Normal [phone] TSH (Thyroid Stim Horm) 1.61 ?IU/mL Normal 0.34-5.60 Blood Culture SEE RESULT BELOW 43 CBC Auto 01/28/2016 [facility] White Blood 8.3 10^3/uL Normal 3.5-10.[address] [place] [address] [phone] Red Blood Count 4.21 10^6/uL Normal 4.0-5.4 Hemoglobin 15.3 g/dL Normal 12.0-16.0 Hematocrit 44 % Normal 35-47 Mean Corpuscular Volume 105 fL High 80-97 Mean Corpuscular Hemoglobin 36 pg High 27-31 Mean Corpuscular HGB Conc 35 g/dL Normal 31-36 Red Cell Distribution Width 13 % Normal 10.5-15 Platelet Count 187 10^3/uL Normal 150-450 Mean Platelet Volume 7 um3 Low 7.4-10.4 Abs Neutrophils 6.9 10^3/uL Normal 1.5-7.7 Abs Lymphocytes 0.6 10^3/uL Low 1.0-4.8 Abs Monocytes 0.8 10^3/uL Normal 0-0.8 Abs Eosinophils 0 10^3/uL Normal 0-0.6 Abs Basophils 0 10^3/uL Normal 0-0.2 Abs Nucleated RBC 0.01 10^3/uL Normal Granulocyte % 82.7 % Normal 38-83 Lymphocyte % 6.8 % Low 25-47 Monocyte % 10.0 % High 1-9 Eosinophil % 0.1 % Normal 0-6 Basophil % 0.4 % Normal 0-2 Nucleated Red Blood Cells % 0.1 Normal Laboratory test 01/28/2016 [facility] Troponin-I 0.01 Normal < 0.03 [address] (TnI) ng/[place] [address] [phone] Lactic Acid 2.4 mmol/L Critical high 0.5-2.0 45 Comp Metabolic Panel 01/28/2016 [facility] Sodium 125 mmol/L Low 133-[address] [place] [address] [phone] Potassium 5.5 mmol/L High 3.5-5.0 Chloride 86 mmol/L Low 101-111 Co2 Carbon Dioxide 31 mmol/L Normal 22-32 Anion Gap 8 mmol/L Normal 2-11 Glucose 119 mg/dL High 70-100 Blood Urea Nitrogen 13 mg/dL Normal 6-24 Creatinine 0.65 mg/dL Normal 0.51-0.95 BUN/Creatinine Ratio 20.0 Normal 8-20 Calcium 9.6 mg/dL Normal 8.6-10.3 Total Protein 7.1 g/dL Normal 6.4-8.9 Albumin 4.4 g/dL Normal 3.2-5.2 Globulin 2.7 g/dL Normal 2-4 Albumin/Globulin Ratio 1.6 Normal 1-3 Total Bilirubin 1.00 mg/dL Normal 0.2-1.0 Alkaline Phosphatase 55 U/L Normal 34-104 Alt 33 U/L Normal 7-52 Ast 36 U/L Normal 13-39 Egfr Non- 90.6 Normal >60 Egfr 116.6 Normal >60 46 Basic Metabolic 01/10/2016 [facility] Sodium 135 mmol/L Normal 133-[address] [place] [address] [phone] Potassium 3.8 mmol/L Normal 3.5-5.0 Chloride 95 mmol/L Low 101-111 Co2 Carbon Dioxide 33 mmol/L High 22-32 Anion Gap 7 mmol/L Normal 2-11 Glucose 135 mg/dL High 70-100 Blood Urea Nitrogen 19 mg/dL Normal 6-24 Creatinine 0.76 mg/dL Normal 0.51-0.95 BUN/Creatinine Ratio 25.0 High 8-20 Calcium 9.7 mg/dL Normal 8.6-10.3 Egfr Non- 75.7 Normal >60 Egfr 97.3 Normal >60 47 Alpha 1 10/28/2015 [facility] A1a Phenotype MM bands Normal [address] [place] [address] [phone] Alpha 1 Antitrypsin A1a 103 mg/dL Normal 100 - 190 49 Basic Metabolic 10/28/2015 [facility] Sodium 135 mmol/L Normal 133-[address] [place] [address] [phone] Potassium 4.2 mmol/L Normal 3.5-5.0 Chloride 97 mmol/L Low 101-111 Co2 Carbon Dioxide 32 mmol/L Normal 22-32 Anion Gap 6 mmol/L Normal 2-11 Glucose 89 mg/dL Normal 70-100 Blood Urea Nitrogen 20 mg/dL Normal 6-24 Creatinine 0.66 mg/dL Normal 0.51-0.95 BUN/Creatinine Ratio 30.3 High 8-20 Calcium 9.4 mg/dL Normal 8.6-10.3 Egfr Non- 89.1 Normal >60 Egfr 114.5 Normal >60 50 CBC Auto 10/28/2015 [facility] White Blood 3.8 10^3/uL Normal 3.5-10.[address] [place] [address] [phone] Red Blood Count 4.22 10^6/uL Normal 4.0-5.4 Hemoglobin 15.3 g/dL Normal 12.0-16.0 Hematocrit 44 % Normal 35-47 Mean Corpuscular Volume 105 fL High 80-97 Mean Corpuscular Hemoglobin 36 pg High 27-31 Mean Corpuscular HGB Conc 35 g/dL Normal 31-36 Red Cell Distribution Width 11 % Normal 10.5-15 Platelet Count 118 10^3/uL Low 150-450 Mean Platelet Volume 8 um3 Normal 7.4-10.4 Abs Neutrophils 2.6 10^3/uL Normal 1.5-7.7 Abs Lymphocytes 0.6 10^3/uL Low 1.0-4.8 Abs Monocytes 0.5 10^3/uL Normal 0-0.8 Abs Eosinophils 0 10^3/uL Normal 0-0.6 Abs Basophils 0.1 10^3/uL Normal 0-0.2 Abs Nucleated RBC 0 10^3/uL Normal Granulocyte % 67.6 % Normal 38-83 Lymphocyte % 15.6 % Low 25-47 Monocyte % 13.1 % High 1-9 Eosinophil % 1.2 % Normal 0-6 Basophil % 2.5 % High 0-2 Nucleated Red Blood Cells % 0.1 Normal Laboratory 10/28/2015 [facility] TSH (Thyroid 1.31 Normal 0.34 -5.60 51 test finding [address] Stim Horm) ?IU/mL [place], [place] [id number] [phone] Laboratory 09/17/2015 [facility] Surgical SEE 52 test finding [address] [place] [address] BELOW [phone] CBC Auto Diff 09/15/2015 [facility] White Blood 3.4 Low 3.5- 10.[address] Count 10^3/[place] [address] [phone] Red Blood Count 4.08 10^6/uL Normal 4.0-5.4 Hemoglobin 14.9 g/dL Normal 12.0-16.0 Hematocrit 46 % Normal 35-47 Mean Corpuscular Volume 112 fL High 80-97 Mean Corpuscular Hemoglobin 37 pg High 27-31 Mean Corpuscular HGB Conc 33 g/dL Normal 31-36 Red Cell Distribution Width 13 % Normal 10.5-15 Platelet Count 125 10^3/uL Low 150-450 Mean Platelet Volume 8 um3 Normal 7.4-10.4 Abs Neutrophils 2.1 10^3/uL Normal 1.5-7.7 Abs Lymphocytes 0.6 10^3/uL Low 1.0-4.8 Abs Monocytes 0.6 10^3/uL Normal 0-0.8 Abs Eosinophils 0 10^3/uL Normal 0-0.6 Abs Basophils 0 10^3/uL Normal 0-0.2 Abs Nucleated RBC 0 10^3/uL Normal Granulocyte % 61.1 % Normal 38-83 Lymphocyte % 18.3 % Low 25-47 Monocyte % 18.7 % High 1-9 Eosinophil % 1.5 % Normal 0-6 Basophil % 0.4 % Normal 0-2 Nucleated Red Blood Cells % 0 Normal Lipid Profile 08/19/2015 [facility] Triglycerides 90 mg/dL Normal 53 (Trig/Chol/HDL) [address] [place] [address] [phone] Cholesterol 165 mg/dL Normal 54 HDL Cholesterol 80.3 mg/dL Normal 55 LDL Cholesterol 67 mg/dL Normal 56 Comp Metabolic 08/19/2015 [facility] Sodium 135 mmol/L Normal 133-[address] [place] [address] [phone] Potassium 4.4 mmol/L Normal 3.5-5.0 Chloride 98 mmol/L Low 101-111 Co2 Carbon Dioxide 32 mmol/L Normal 22-32 Anion Gap 5 mmol/L Normal 2-11 Glucose 100 mg/dL Normal 70-100 Blood Urea Nitrogen 11 mg/dL Normal 6-24 Creatinine 0.61 mg/dL Normal 0.51-0.95 BUN/Creatinine Ratio 18.0 Normal 8-20 Calcium 9.1 mg/dL Normal 8.6-10.3 Total Protein 6.4 g/dL Normal 6.4-8.9 Albumin 4.3 g/dL Normal 3.2-5.2 Globulin 2.1 g/dL Normal 2-4 Albumin/Globulin Ratio 2.0 Normal 1-3 Total Bilirubin 0.60 mg/dL Normal 0.2-1.0 Alkaline Phosphatase 68 U/L Normal 34-104 Alt 13 U/L Normal 7-52 Ast 24 U/L Normal 13-39 Egfr Non- 97.5 Normal >60 Egfr 125.4 Normal >60 57 CBC Auto 07/04/2015 [facility] White Blood 15.0 10^3/uL High 4.8-10.[address] [place] [address] [phone] Red Blood Count 4.16 10^6/uL Normal 4.0-5.4 Hemoglobin 15.1 g/dL Normal 12.0-16.0 Hematocrit 45 % Normal 35-47 Mean Corpuscular Volume 109 fL High 80-97 58 Mean Corpuscular Hemoglobin 36 pg High 27-31 Mean Corpuscular HGB Conc 33 g/dL Normal 31-36 Red Cell Distribution Width 12 % Normal 10.5-15 Platelet Count 133 10^3/uL Low 150-450 Mean Platelet Volume 9 um3 Normal 7.4-10.4 Abs Neutrophils 13.9 10^3/uL High 1.5-7.7 Abs Lymphocytes 0.3 10^3/uL Low 1.0-4.8 Abs Monocytes 0.7 10^3/uL Normal 0-0.8 Abs Eosinophils 0 10^3/uL Normal 0-0.6 Abs Basophils 0.1 10^3/uL Normal 0-0.2 Abs Nucleated RBC 0.01 10^3/uL Normal Granulocyte % 92.4 % High 38-83 Lymphocyte % 2.2 % Low 25-47 Monocyte % 4.7 % Normal 1-9 Eosinophil % 0.3 % Normal 0-6 Basophil % 0.4 % Normal 0-2 Nucleated Red Blood Cells % 0.1 Normal Comp Metabolic Panel 07/04/2015 [facility] Sodium 129 mmol/L Low 133-[address] [place] [address] [phone] Potassium 3.6 mmol/L Normal 3.5-5.0 Chloride 92 mmol/L Low 101-111 Co2 Carbon Dioxide 28 mmol/L Normal 22-32 Anion Gap 9 mmol/L Normal 2-11 Glucose 101 mg/dL High 70-100 Blood Urea Nitrogen 6 mg/dL Normal 6-24 Creatinine 0.74 mg/dL Normal 0.51-0.95 BUN/Creatinine Ratio 8.1 Normal 8-20 Calcium 9.2 mg/dL Normal 8.6-10.3 Total Protein 6.9 g/dL Normal 6.4-8.9 Albumin 4.1 g/dL Normal 3.2-5.2 Globulin 2.8 g/dL Normal 2-4 Albumin/Globulin Ratio 1.5 Normal 1-3 Total Bilirubin 0.80 mg/dL Normal 0.2-1.0 Alkaline Phosphatase 74 U/L Normal 34-104 Alt 16 U/L Normal 7-52 Ast 25 U/L Normal 13-39 Egfr Non- 78.0 Normal >60 Egfr 100.4 Normal >60 59 Laboratory test 07/04/2015 [facility] Troponin-I 0.01 Normal < 0.03 [address] (TnI) ng/[place] [address] [phone] Laboratory test 02/09/2015 Folic Acid > 20.00 Normal >3.99 finding (Folate) ng/mL Vitamin B12 514 pg/mL Normal 180-914 61 Comp Metabolic Panel 02/09/2015 Sodium 134 mmol/L Normal 133-145 Potassium 4.0 mmol/L Normal 3.5-5.0 Chloride 98 mmol/L Low 101-111 Albumin 4.6 g/dL Normal 3.2-5.2 Co2 Carbon Dioxide 29 mmol/L Normal 22-32 Anion Gap 7 mmol/L Normal 2-11 Glucose 82 mg/dL Normal 70-100 Blood Urea Nitrogen 13 mg/dL Normal 6-24 Creatinine 0.67 mg/dL Normal 0.51-0.95 BUN/Creatinine Ratio 19.4 Normal 8-20 Calcium 9.3 mg/dL Normal 8.6-10.3 Total Protein 7.0 g/dL Normal 6.4-8.9 Globulin 2.4 g/dL Normal 2-4 Albumin/Globulin Ratio 1.9 Normal 1-3 Total Bilirubin 0.50 mg/dL Normal 0.2-1.0 Alkaline Phosphatase 61 U/L Normal 34-104 Alt 20 U/L Normal 7-52 Ast 32 U/L Normal 13-39 Egfr Non- 87.8 Normal >60 Egfr 112.9 Normal >60 62 CBC Auto Diff 02/09/2015 White Blood Count 3.5 10^3/uL Low 4.8-10.8 Red Blood Count 4.31 10^6/uL Normal 4.0-5.4 Hemoglobin 16.1 g/dL High 12.0-16.0 Hematocrit 49 % High 35-47 Mean Corpuscular Volume 113 fL High 80-97 63 Mean Corpuscular Hemoglobin 37 pg High 27-31 Mean Corpuscular HGB Conc 33 g/dL Normal 31-36 Red Cell Distribution Width 12 % Normal 10.5-15 Platelet Count 110 10^3/uL Low 150-450 Mean Platelet Volume 8 um3 Normal 7.4-10.4 Abs Neutrophils 2.6 10^3/uL Normal 1.5-7.7 Abs Lymphocytes 0.4 10^3/uL Low 1.0-4.8 Abs Monocytes 0.5 10^3/uL Normal 0-0.8 Abs Eosinophils 0 10^3/uL Normal 0-0.6 Abs Basophils 0 10^3/uL Normal 0-0.2 Abs Nucleated RBC 0 10^3/uL Normal Granulocyte % 73.5 % Normal 38-83 Lymphocyte % 10.6 % Low 25-47 Monocyte % 14.5 % High 1-9 Eosinophil % 0.6 % Normal 0-6 Basophil % 0.8 % Normal 0-2 Nucleated Red Blood Cells % 0.1 Normal CBC Auto 12/18/2014 [facility] White Blood 2.0 10^3/uL Low 4.8 -10.8 [address] [place] [address] [phone] Red Blood Count 3.85 10^6/uL Low 4.0-5.4 Hemoglobin 14.6 g/dL Normal 12.0-16.0 Hematocrit 43 % Normal 35-47 Mean Corpuscular Volume 111 fL High 80-97 65 Mean Corpuscular Hemoglobin 38 pg High 27-31 Mean Corpuscular HGB Conc 34 g/dL Normal 31-36 Red Cell Distribution Width 12 % Normal 10.5-15 Platelet Count 119 10^3/uL Low 150-450 Mean Platelet Volume 8 um3 Normal 7.4-10.4 Abs Neutrophils 1.0 10^3/uL Low 1.5-7.7 Abs Lymphocytes 0.6 10^3/uL Low 1.0-4.8 Abs Monocytes 0.4 10^3/uL Normal 0-0.8 Abs Eosinophils 0.1 10^3/uL Normal 0-0.6 Abs Basophils 0 10^3/uL Normal 0-0.2 Abs Nucleated RBC 0 10^3/uL Normal Granulocyte % 47.9 % Normal 38-83 Lymphocyte % 30.7 % Normal 25-47 Monocyte % 17.2 % High 1-9 Eosinophil % 3.3 % Normal 0-6 Basophil % 0.9 % Normal 0-2 Nucleated Red Blood Cells % 0.1 Normal CBC Auto 11/06/2014 [facility] White Blood 3.0 10^3/uL Low 4.8 -10.[address] [place] [address] [phone] Red Blood Count 3.77 10^6/uL Low 4.0-5.4 Hemoglobin 14.6 g/dL Normal 12.0-16.0 Hematocrit 42 % Normal 35-47 Mean Corpuscular Volume 112 fL High 80-97 Mean Corpuscular Hemoglobin 39 pg High 27-31 Mean Corpuscular HGB Conc 35 g/dL Normal 31-36 Red Cell Distribution Width 12 % Normal 10.5-15 Platelet Count 106 10^3/uL Low 150-450 Mean Platelet Volume 8 um3 Normal 7.4-10.4 Abs Neutrophils 1.8 10^3/uL Normal 1.5-7.7 Abs Lymphocytes 0.5 10^3/uL Low 1.0-4.8 Abs Monocytes 0.5 10^3/uL Normal 0-0.8 Abs Eosinophils 0.1 10^3/uL Normal 0-0.6 Abs Basophils 0 10^3/uL Normal 0-0.2 Abs Nucleated RBC 0 10^3/uL Normal Granulocyte % 62.6 % Normal 38-83 Lymphocyte % 18.0 % Low 25-47 Monocyte % 16.7 % High 1-9 Eosinophil % 1.8 % Normal 0-6 Basophil % 0.9 % Normal 0-2 Nucleated Red Blood Cells % 0.1 Normal CBC Auto 10/10/2014 [facility] White Blood 2.7 10^3/uL Low 4.8 -10.[address] [place] [address] [phone] Red Blood Count 3.80 10^6/uL Low 4.0-5.4 Hemoglobin 14.7 g/dL Normal 12.0-16.0 Hematocrit 42 % Normal 35-47 Mean Corpuscular Volume 111 fL High 80-97 66 Mean Corpuscular Hemoglobin 39 pg High 27-31 Mean Corpuscular HGB Conc 35 g/dL Normal 31-36 Red Cell Distribution Width 12 % Normal 10.5-15 Platelet Count 108 10^3/uL Low 150-450 Mean Platelet Volume 8 um3 Normal 7.4-10.4 Abs Neutrophils 1.6 10^3/uL Normal 1.5-7.7 Abs Lymphocytes 0.6 10^3/uL Low 1.0-4.8 Abs Monocytes 0.4 10^3/uL Normal 0-0.8 Abs Eosinophils 0.1 10^3/uL Normal 0-0.6 Abs Basophils 0 10^3/uL Normal 0-0.2 Abs Nucleated RBC 0 10^3/uL Normal Granulocyte % 59.6 % Normal 38-83 Lymphocyte % 20.9 % Low 25-47 Monocyte % 16.0 % High 1-9 Eosinophil % 2.1 % Normal 0-6 Basophil % 1.4 % Normal 0-2 Nucleated Red Blood Cells % 0.1 Normal Laboratory 10/10/2014 [facility] TSH (Thyroid 2.11 Normal 0.34 -5.60 test finding [address] Stimulating IU/[place] [address] Horm) [phone] Comp Metabolic 10/10/2014 [facility] Sodium 135 Normal 133- [address] mmol/[place] [address] [phone] Potassium 4.0 mmol/L Normal 3.5-5.0 Chloride 99 mmol/L Low 101-111 Co2 Carbon Dioxide 31 mmol/L Normal 22-32 Anion Gap 5 mmol/L Normal 2-11 Glucose 97 mg/dL Normal 70-100 Blood Urea Nitrogen 17 mg/dL Normal 6-24 Creatinine 0.74 mg/dL Normal 0.51-0.95 BUN/Creatinine Ratio 23.0 High 8-20 Calcium 9.6 mg/dL Normal 8.6-10.3 Total Protein 6.8 g/dL Normal 6.4-8.9 Albumin 4.3 g/dL Normal 3.2-5.2 Globulin 2.5 g/dL Normal 2-4 Albumin/Globulin Ratio 1.7 Normal 1-3 Total Bilirubin 0.40 mg/dL Normal 0.2-1.0 Alkaline Phosphatase 53 U/L Normal 34-104 Alt 21 U/L Normal 7-52 Ast 33 U/L Normal 13-39 Egfr Non- 78.3 Normal >60 Egfr 100.7 Normal >60 67 Laboratory test 09/16/2014 TSH (Thyroid 2.69 IU/mL Normal 0.34-5.60 finding Stimulating Horm) CBC Auto Diff 09/16/2014 White Blood Count 2.5 10^3/uL Low 4.8-10.8 Red Blood Count 3.76 10^6/uL Low 4.0-5.4 Hemoglobin 14.3 g/dL Normal 12.0-16.0 Hematocrit 42 % Normal 35-47 Mean Corpuscular Volume 112 fL High 80-97 Mean Corpuscular Hemoglobin 38 pg High 27-31 Mean Corpuscular HGB Conc 34 g/dL Normal 31-36 Red Cell Distribution Width 12 % Normal 10.5-15 Platelet Count 108 10^3/uL Low 150-450 Mean Platelet Volume 8 um3 Normal 7.4-10.4 Abs Neutrophils 1.5 10^3/uL Normal 1.5-7.7 Abs Lymphocytes 0.5 10^3/uL Low 1.0-4.8 Abs Monocytes 0.5 10^3/uL Normal 0-0.8 Abs Eosinophils 0 10^3/uL Normal 0-0.6 Abs Basophils 0 10^3/uL Normal 0-0.2 Abs Nucleated RBC 0.01 10^3/uL Normal Granulocyte % 58.5 % Normal 38-83 Lymphocyte % 19.9 % Low 25-47 Monocyte % 18.5 % High 1-9 Eosinophil % 1.5 % Normal 0-6 Basophil % 1.6 % Normal 0-2 Nucleated Red Blood Cells % 0.2 Normal Laboratory test 08/08/2014 TSH (Thyroid 12.40 IU/mL High 0.34-5.60 finding Stimulating Horm) Lipid Profile 08/08/2014 Triglycerides 67 mg/dL Normal 68 (Trig/Chol/HDL) Cholesterol 159 mg/dL Normal 69 HDL Cholesterol 75.3 mg/dL Normal 70 LDL Cholesterol 70 mg/dL Normal 71 Comp Metabolic Panel 08/08/2014 Sodium 137 mmol/L Normal 133-145 Potassium 4.1 mmol/L Normal 3.5-5.0 Chloride 101 mmol/L Normal 101-111 Co2 Carbon Dioxide 33 mmol/L High 22-32 Anion Gap 3 mmol/L Normal 2-11 Glucose 87 mg/dL Normal 70-100 Blood Urea Nitrogen 15 mg/dL Normal 6-24 Creatinine 0.74 mg/dL Normal 0.51-0.95 BUN/Creatinine Ratio 20.3 High 8-20 Calcium 9.2 mg/dL Normal 8.6-10.3 Total Protein 6.8 g/dL Normal 6.4-8.9 Albumin 4.4 g/dL Normal 3.2-5.2 Globulin 2.4 g/dL Normal 2-4 Albumin/Globulin Ratio 1.8 Normal 1-3 Total Bilirubin 0.60 mg/dL Normal 0.2-1.0 Alkaline Phosphatase 46 U/L Normal 34-104 Alt 18 U/L Normal 7-52 Ast 31 U/L Normal 13-39 Egfr Non- 78.3 Normal >60 Egfr 100.7 Normal >60 72 Laboratory test 05/19/2014 [facility] TSH (Thyroid 15.44 High 0.34-5.[address] Stimulating IU/[place] [address] Horm) [phone] Comp Metabolic 10/09/2013 [facility] Sodium 131 Low 133-[address] mmol/L [place], [place] [phone] Potassium 4.0 mmol/L 3.7-5.6 Chloride 96 mmol/L [...] Egfr Non- 88.1 >60 Egfr 113.3 >60 73 CBC Auto Diff 10/09/2013 [facility] White Blood 5.5 10^3/uL 4.8-10.[address] [place] [address] [phone] Red Blood Count 3.58 10^6/uL Low 4.0-5.4 [...] Red Blood Cells % 0.1 Laboratory test 09/11/2013 [facility] Cortisol 9.39 g/dL 74 finding [address] [place] [address] [phone] Laboratory test 09/11/2013 [facility] Cortisol 22.32 g/dL 75 finding [address] [place] [address] [phone] Laboratory test 09/11/2013 [facility] Cortisol 17.84 g/dL 76 finding [address] [place] [address] [phone] Laboratory test 08/18/2013 [facility] Throat Culture (SEE NOTE) 77 finding [address] [place] [address] [phone] Rapid Strep A (SEE NOTE) 78 Throat Beta Strep Culture (SEE NOTE) 79 Basic Metabolic Panel 08/12/2013 [facility] Sodium 133 mmol/L 133-145 [address] [place] [address] [phone] Potassium 3.6 mmol/L 3.5-5.0 Chloride 97 mmol/L Low 101-111 Co2 Carbon Dioxide 30.0 mmol/L 22-32 Anion Gap 6.0 mmol/L 2-11 Glucose 101 mg/dL High 70-100 Blood Urea Nitrogen 17 mg/dL 6-24 Creatinine 0.70 mg/dL 0.50-1.40 BUN/Creatinine Ratio 24.3 High 8-20 Calcium 9.5 mg/dL 8.1-9.9 Egfr Non- 83.7 >60 Egfr 107.7 >60 80 CBC With 08/12/2013 [facility] White Blood 5.0 10^3/uL 4.8- 10.8 Manual Diff [address] [place] [address] [phone] Red Blood Count 4.38 10^6/uL 4.0-5.4 Hemoglobin 16.0 g/dL 12.0-16.0 Hematocrit 47 % 35-47 Mean Corpuscular Volume 108 fL High 80-97 81 Mean Corpuscular Hemoglobin 36 pg High 27-31 [...] Lymph % 4 % 0-6 Macrocytosis 2+ Laboratory test 07/09/2013 [facility] Cytology RUN DATE: [address] 07/10/ <[place] [address] NOTE> [phone] CBC With Manual 07/09/2013 [facility] White Blood 4.7 10^3/uL Low 4.8-[address] Count 0.8 [place] [address] [phone] Red Blood Count 4.56 10^6/uL 4.0-5.4 Hemoglobin 17.1 g/dL High 12.0-16.0 Hematocrit 50 % High 35-47 Mean Corpuscular Volume 109 fL High 80-97 83 Mean Corpuscular Hemoglobin 38 pg High 27-31 [...] 0-13 RBC Morphology Normal Normal Laboratory test 07/09/2013 [facility] LDH 164 U/L 95-185 finding [address] [place] [address] [phone] CBC Auto Diff 04/10/2013 [facility] White Blood 3.2 Low 4.8- 10.[address] Count 10^3/[place] [address] [phone] Red Blood Count 4.08 10^6/uL 4.0-5.4 Hemoglobin 15.2 g/dL 12.0-16.0 Hematocrit 45 % 35-47 Mean Corpuscular Volume 110 fL High 80-97 84 Mean Corpuscular Hemoglobin 37 pg High 27-31 85 Mean Corpuscular HGB Conc 34 g/dL 31-36 [...] Red Blood Cells % 0 Laboratory test 03/11/2013 [facility] Magnesium 1.7 mg/dL 1.7 -2.6 finding [address] [place] [address] [phone] Basic Metabolic 03/11/2013 [facility] Sodium 135 mmol/L 133- 145 Panel [address] [place] [address] [phone] Potassium 3.9 mmol/L 3.5-5.0 Chloride 100 mmol/L Low 101-111 Co2 Carbon Dioxide 31.0 mmol/L 22-32 Anion Gap 4.0 mmol/L 2-11 Glucose 69 mg/dL Low 70-100 Blood Urea Nitrogen 15 mg/dL 6-24 Creatinine 0.70 mg/dL 0.50-1.40 BUN/Creatinine Ratio 21.4 High 8-20 Calcium 9.1 mg/dL 8.1-9.9 Egfr Non- 84.0 >60 Egfr 108.0 >60 86 CBC Auto 03/11/2013 [facility] White Blood 2.3 10^3/uL Low 4.8 -10.[address] [place] [address] [phone] Red Blood Count 3.96 10^6/uL Low 4.0-5.4 [...] Red Blood Cells % 0.2 Laboratory test 02/03/2013 [facility] Urine Random 12 mmol/L finding [address] [address] [phone] Urine Osmolality 136 mOsm/kg Low 300-1000 Osmolality Serum 273 mOsm/kg Low 281-297 Manual Differential 01/27/2013 [facility] Neutrophil % 44 % 38-[address] [place] [address] [phone] Band % 4 % 0-8 Lymphocytes % 31 % 25-47 Monocytes % 18 % High 0-13 Eosinophils % 2 % 0-6 Reactive Lymph % 1 % 0-6 Macrocytosis 2+ CBC Auto 01/27/2013 [facility] White Blood 2.3 10^3/uL Low 4.8 -10.[address] [place] [address] [phone] Red Blood Count 4.20 10^6/uL 4.0-5.4 Hemoglobin 15.3 g/dL 12.0-16.0 Hematocrit 46 % 35-47 Mean Corpuscular Volume 110 fL High 80-97 87 Mean Corpuscular Hemoglobin 36 pg High 27-31 [...] 10^3/uL 0-0.2 Abs Nucleated RBC 0 10^3/uL Comp Metabolic Panel 01/27/2013 [facility] Sodium 130 mmol/L Low 133-[address] [place] [address] [phone] Potassium 4.0 mmol/L 3.5-5.0 Chloride 94 mmol/L [...] Egfr Non- 72.0 >60 Egfr 92.6 >60 88 CBC With 01/03/2013 [facility] White Blood 2.0 10^3/uL Low 4.8 -10.8 Manual Diff [address] [place] [address] [phone] Red Blood Count 4.03 10^6/uL 4.0-5.4 Hemoglobin [...] Eosinophils % 2 % 0-6 Macrocytosis 2+ Lipid Profile 01/03/2013 [facility] Triglycerides 53 mg/dL 40 -200 (Trig/Chol/HDL) [address] [place] [address] [phone] Cholesterol 163 mg/dL Less than 200 HDL Cholesterol 79 mg/dL High 40-60 89 Cholesterol/HDL Ratio 2.1 Average 1-4.44 LDL Cholesterol 73.4 Less Than 100 90 1 Troponin-I testing on Plasma Separator Tubes (PST) has a known false positive rate of 0.20-0.40%. All positive troponins reflex immediately to secondary confirmatory testing. Using the [employer] DxI 800 Access Immunoassay systems, the 99th percentile upper reference limit was demonstrated to be < 0.03 ng/mL. 2 Please note: The following may produce a false positive D Dimer test: - Rheumatoid factor greater than 60 IU/ml - Plasma hemoglobin greater than 0.05 gm/dl - Bilirubin greater than 50 mg/dl - Lipids greater than 1000 mg/dl - FDP greater than 20 ug/ml 3 SEE RESULT BELOW Name: TRINA KEEN : [address]: Carmen Last MD Acct: [id number] Unit: [id number] AGE: 73 Location: [place] [id number] Re01/16/19 Dis: 01/17/19 SEX: F Status: DIS Justine SPEC: [id number] OTONIEL: 01/16/197 [facility] DR: Shen Lozano MD REQ: [id number] RECD: 01/16/19 STATUS: JOHAN WILLIAMSON DR: Daxa James MD _ SOURCE: BLOOD,VENO SPDESC: ORDERED: Blood Cult Procedure Result Reported Site Aerobic Culture Bottle Final 01/21/19- 1232 ML No Growth Day 5 Anaerobic Culture Bottle Final 01/21/19- 1232 ML No Growth Day 5 * ML - Main Lab . END OF REPORT DEPARTMENT OF PATHOLOGY, [address] [place] [address] Luis Chamorro M.D. Director [facility] # [id number] 4 [facility] Severe Sepsis and Septic Shock Management Bundle Measure requires all lactic acids initially measuring >2.0 mmol/L be repeated. 5 Because ethnic data is not always readily [...] 15-29 5 Kidney failure <15 (or dialysis) 6 White count confirmed by estimate 7 Consistent with Previous Results Reported on 01/04/19 8 Platelets clumped. Unable to perform accurate count. 9 Specimen Hemolyzed. Result may not be valid. Unable to report test result due to hemolysis. 10 Because ethnic data is not always readily [...] 15-29 5 Kidney failure <15 (or dialysis) 11 Because ethnic data is not always readily [...] 15-29 5 Kidney failure <15 (or dialysis) 12 Standard intensity warfarin therapeutic range: 2.0-3.0 High intensity warfarin therapeutic range: 2.5-3.5 13 Normal Range 180 to 914 Indeterminate Range 145 to 180 Deficient Range <145 14 [id number] 15 Because ethnic data is not always readily [...] 15-29 5 Kidney failure <15 (or dialysis) 16 [id number] Comment: left big toenail 19 SEE RESULT BELOW Name: LEONILATRINA Adina : [address]: Trina Do MD Acct: [id number] Unit: [id number] AGE: 73 Location: [facility] Re06/15/18 SEX: F Status: DEP ER SPEC: [id number] OTONIEL: 06/15/18-5 [facility] DR: Debby HURD REQ: [id number] RECD: 06/15/189728 STATUS: RES OTHR DR: Daxa Do MD _ SOURCE: TOE SPDESC:LEFT ORDERED: Culture Stain COMMENTS: [id number] Comment: left big toenail Procedure Result Reported Site Wound/Misc Gram Stain Preliminary 06/15/18- 1840 ML No Neutrophils Observed 1+ Epithelial Cells 2+ Gram Positive Cocci Wound/Misc Culture PENDING * ML - Main Lab . END OF REPORT DEPARTMENT OF PATHOLOGY, [address] [place] [address] Luis Chamorro M.D. Director [facility] # [id number] 20 SEE RESULT BELOW Name: LEONILATRINA Adina : [address]: Trina Do MD Acct: [id number] Unit: [id number] AGE: 73 Location: [facility] Re06/15/18 SEX: F Status: DEP ER SPEC: [id number] OTONIEL: 06/15/18 [facility] [address]: Debby HURD REQ: [id number] RECD: 06/15/18 STATUS: JOHAN WILLIAMSON DR: Daxa Do MD _ SOURCE: TOE SPDESC:LEFT ORDERED: MRSA/SA SSTI, Culture Stain COMMENTS: [id number] Comment: left big toenail Procedure Result Reported Site MRSA/S. aureus SSTI PCR Final 06/15/18- 2003 ML Organism 1 MRSA NEGATIVE Organism 2 S.AUREUS NEGATIVE Wound/Misc Gram Stain Final 06/16/18- 0653 ML No Neutrophils Observed 1+ Epithelial Cells 2+ Gram Positive Cocci Wound/Misc Culture Final 06/18/18- 1057 ML Organism 1 STAPHYLOCOCCUS LUGDENENSIS Quantity 1+ Organism 2 NORMAL VI Quantity 1+ 1. STAPHYLOCOCCUS LUGDENENSIS M.I.C. RX --------- ------ Penicillin >=0.5 R Clindamycin R This isolate is presumed to be resistant based on detection of inducible Clindamycin resistance. Clindamycin may still be effective in some patients. Erythromycin >=8 R Gentamicin <=0.5 S Linezolid 1 S CONTINUED ON NEXT PAGE DEPARTMENT OF PATHOLOGY, [address] [place] [address] Luis Chamorro M.D. Director [facility] # [id number] Patient: TRINA KEEN [id number] (Continued) Specimen: [id number] Collected: 06/15/18-1034 Received: 06/15/18 (Continued) Procedure Result Reported Site Wound/Misc Culture Final (continued) 06/18/18- 1056 1. STAPHYLOCOCCUS LUGDENENSIS (continued) M.I.C. RX --------- ------ Oxacillin 2 S * Quinupristin/Dalfopristin <=0.25 S Rifampin <=0.5 S Tetracycline <=1 S Doxycycline - Deduced S * Minocycline - Deduced S Tigecycline <=0.12 S Vancomycin <=0.5 S Imipenem-Deduced S * Ampicillin/Sulbactam-Deduced S Cefazolin-Deduced S * These antibiotics are not available in the [facility] Formulary Contact the Microbiology Department for any additional antibiotic reporting. * ML - Main Lab . END OF REPORT DEPARTMENT OF PATHOLOGY, [address] [place] [address] Luis Chamorro M.D. Director [facility] # [id number] 21 Because ethnic data is not always [...] 5 Kidney failure <15 (or dialysis) 22 SEE RESULTS BELOW [id number] BP PC [facility] 11/26/17 1551 23 Because ethnic data is not always readily [...] 15-29 5 Kidney failure <15 (or dialysis) 24 FASTING 10 HOUR 25 Desirable: <150 Borderline High: 150-199 High: 200-499 Very High: >500 26 Desirable: <200 Borderline High: 200-239 High: >239 27 Low: <40 Desirable: 40-60 High: >60 28 Desirable: <100 Near Optimal: 100-129 Borderline High: 130-159 High: 160-189 Very High: >189 29 Because ethnic data is not always readily [...] 15-29 5 Kidney failure <15 (or dialysis) 30 FASTING 10 HOUR 31 Because ethnic data is not always readily [...] 15-29 5 Kidney failure <15 (or dialysis) 32 Acute inflammation: >10.00 33 [facility] Severe Sepsis and Septic Shock Management Bundle Measure requires all lactic acids initially measuring >2.0 mmol/L be repeated. 34 Please note the change in INR reference range effective 17. 35 >100 to <200 pg/mL: likely compensated congestive heart failure (CHF) 200 to 400 pg/mL: likely moderate CHF >400 pg/mL: likely moderate to severe CHF 36 Desirable <150 Borderline high 150-199 High 200-499 Very High >500 37 Desirable <200 Borderline high 200-239 High >239 38 Low <40 Desirable: 40-60 High: >60 39 Desirable: <100 mg/dL Near Optimal: 100-129 mg/dL Borderline High: 130-159 mg/dL High: 160-189 mg/dL Very High: >189 mg/dL 40 Because ethnic data is not always readily [...] 15-29 5 Kidney failure <15 (or dialysis) 41 Because ethnic data is not always readily [...] 15-29 5 Kidney failure <15 (or dialysis) 42 >100 to <200 pg/mL: likely compensated congestive heart failure (CHF) 200 to 400 pg/mL: likely moderate CHF >400 pg/mL: likely moderate to severe CHF 43 SEE RESULT BELOW Name: TRINA KEEN Adina : [address]: Eugenie Hooker MD Acct: [id number] Unit: [id number] AGE: 70 Location: [place] [address] Re01/29/16 Dis: 01/31/16 SEX: F Status: DIS IN SPEC: [id number] OTONIEL: 01/28/16 [facility] [address]: Nilam Daily MD REQ: [id number] RECD: 01/28/16 STATUS: JOHAN WILLIAMSON DR: Daxa James MD _ SOURCE: BLOOD,VENO SPDES: ORDERED: Blood Cult Procedure Result Reported Site Aerobic Culture Bottle Final 02/02/16855 ML No Growth Day 5 Anaerobic Culture Bottle Final 02/02/16855 ML No Growth Day 5 * ML - MAIN LAB ([facility]) . END OF REPORT * ML = Testing performed at Main Lab DEPARTMENT OF PATHOLOGY, [address] [place] [address] Luis Chamorro M.D. Director [facility] # [id number] 44 Reference Range and Interpretation: TnI (ng/mL) Interpretation Less Than 0.03 ng/mL Not supportive of diagnosis of IA 0.03 - 0.50 ng/mL Indeterminate: suggest serial studies if clinically indicated. Greater than 0.5 ng/mL Consistent with diagnosis of IA 45 Critical Result LACT:2.4 Called to TERESA Olguin at: 09:00:59 by:[id number] Read back by:TERESA Olguin [facility] Severe Sepsis and Septic Shock Management Bundle Measure requires all lactic acids initially measuring >2.0 mmol/L be repeated. 46 Because ethnic data is not always readily [...] 15-29 5 Kidney failure <15 (or dialysis) 47 Because ethnic data is not always readily [...] 15-29 5 Kidney failure <15 (or dialysis) 48 A single M isoform is detected. In the context of a normal miriy-1-wzhdmpxqnqy concentration, this is consistent with an MM phenotype. Reviewed by: Ramos Hightower 11/04/2015 3:31 PM 49 Test Performed by: [address] [address] [employer]er: Jorge Mckeon II, M.D., Ph.D. 50 Because ethnic data is not always [...] 5 Kidney failure <15 (or dialysis) 51 DO IN 3 MONTHS 52 SEE RESULT BELOW Name: TRINA KEEN Adina : [address]: Vel Dutton MD Acct: [id number] Unit: [id number] AGE: 70 Location: [facility] Re09/17/15 SEX: F Status: REG REF SPEC: [id number] OTONIEL: 09/17/15-[address]: Vel Dutton MD REQ: [id number] RECD: 09/17/15161 STATUS: RAAD WILLIAMSON DR: Daxa James MD [...] Diaz MD 1101 END OF REPORT * ML = Testing performed at Main Lab DEPARTMENT OF PATHOLOGY, [address] [place] [address] Luis Chamorro M.D. Director [facility] # [id number] 53 Desirable <150 Borderline high 150-199 High 200-499 Very High >500 54 Desirable <200 Borderline high 200-239 High >239 55 Low <40 Desirable: 40-60 High: >60 56 Desirable: <100 mg/dL Near Optimal: 100-129 mg/dL Borderline High: 130-159 mg/dL High: 160-189 mg/dL Very High: >189 mg/dL 57 Because ethnic data is not always readily [...] 15-29 5 Kidney failure <15 (or dialysis) 58 Consistent with previous results on 02/09/15. 59 Because ethnic data is not always readily [...] 15-29 5 Kidney failure <15 (or dialysis) 60 Reference Range and Interpretation: TnI (ng/mL) Interpretation Less Than 0.03 ng/mL Not supportive of diagnosis of IA 0.03 - 0.50 ng/mL Indeterminate: suggest serial studies if clinically indicated. Greater than 0.5 ng/mL Consistent with diagnosis of IA 61 Normal Range 180 to 914 Indeterminate Range 145 to 180 Deficient Range <145 62 Because ethnic data is not always readily [...] 15-29 5 Kidney failure <15 (or dialysis) 63 Consistent with previous results on 12/18/2014. 64 Consistent with previous results on 11/06/14. 65 Consistent with previous results on 11/06/14. 66 Consistent with previous results on 09/16/14. 67 Because ethnic data is not always readily [...] 15-29 5 Kidney failure <15 (or dialysis) 68 Desirable <150 Borderline high 150-199 High 200-499 Very High >500 69 Desirable <200 Borderline high 200-239 High >239 70 Low <40 Desirable: 40-60 High: >60 71 Desirable <100 Near Optimal 100-129 Borderline high 130-159 High 160-189 Very High >189 72 Because ethnic data is not always readily [...] 15-29 5 Kidney failure <15 (or dialysis) 73 Because ethnic data is not always readily [...] 15-29 5 Kidney failure <15 (or dialysis) 74 AM 8.7-22.4 PM <10 75 AM 8.7-22.4 PM <10 76 AM 8.7-22.4 PM <10 77 RUN DATE: 08/20/13 [facility] LAB LIVE PAGE 1 RUN TIME: [address] [place] [address] Specimen Inquiry Name: TRINA KEEN : [address]: Lena Choudhury MD Acct: [id number] Unit: [id number] AGE: 68 Location: [facility] Re08/18/13 SEX: F Status: REG REF SPEC: [id number] OTONIEL: 08/18/13-162 [facility] [address]: Lena Choudhury MD REQ: [id number] RECD: 08/18/13 STATUS: COMP _ SOURCE: THROAT [facility]: ORDERED: Rapid Strep A, Throat Culture, Throat Beta Str QUERIES: Medent Number [id number] Procedure Result Verified Site Rapid Strep A Final 08/18/13- 2028 ML Organism 1 Negative Strep Group A Antigen testing by enzyme immunoassay. The web pressman and regulatory agencies both recommend that a [...] A Beta Streptococcus END OF REPORT * ML = Testing performed at Main Lab DEPARTMENT OF PATHOLOGY, [facility] [employer] [place], [place] [address] Luis Chamorro M.D. Director [facility] Permit #[id number] RUN DATE: 08/18/13 [facility] LAB LIVE PAGE 1 RUN TIME: 2029 [facility] [employer] [place], [place] [address] Specimen Inquiry Name: TRINA KEEN : [address]: Lena Choudhury MD Acct: [id number] Unit: [id number] AGE: 68 Location: [facility] Re08/18/13 SEX: F Status: REG REF SPEC: [id number] OTONIEL: 08/18/13-[address]: Lena Choudhury MD REQ: [id number] RECD: 08/18/13931 STATUS: RES _ SOURCE: THROAT SPDESC: ORDERED: Rapid Strep A, Throat Culture, Throat Beta Str QUERIES: Medent Number [id number] Procedure Result Verified Site Rapid Strep A Final 08/18/13- 2028 ML Organism 1 Negative Strep Group A Antigen testing by enzyme immunoassay. The web pressman and regulatory agencies both recommend that a throat culture for beta strep be performed if a Rapid Group A Strep assay yields a negative result. Therefore a culture will be automatically performed on all negative samples. Throat Culture PENDING Throat Beta Strep Culture PENDING END OF REPORT * ML = Testing performed at Main Lab DEPARTMENT OF PATHOLOGY, [facility] [employer] [place], [place] [address] Luis Chamorro M.D. Director [facility] Permit #[id number] RUN DATE: 08/20/13 [facility] LAB LIVE PAGE 1 RUN TIME: 5736 [facility] [employer] [place], [place] [address] Specimen Inquiry Name: TRINA KEEN : [address]: Lena Choudhury MD Acct: [id number] Unit: [id number] AGE: 68 Location: [facility] Re08/18/13 SEX: F Status: REG REF SPEC: [id number] OTONIEL: 08/18/13-[address] [facility] [address]: Lena Choudhury MD REQ: [id number] RECD: 08/18/13 STATUS: RES _ SOURCE: THROAT SPDESC: ORDERED: Rapid Strep A, Throat Culture, Throat Beta Str QUERIES: Medent Number [id number] Procedure Result Verified Site Rapid Strep A Final 08/18/132028 ML Organism 1 Negative Strep Group A Antigen testing by enzyme immunoassay. The web pressman and regulatory agencies both recommend that a throat culture for beta strep be performed if a Rapid Group A Strep assay yields a negative result. Therefore a culture will be automatically performed on all negative samples. Throat Culture PENDING Throat Beta Strep Culture Final 08/20/13- 39 ML Negative For Group A Beta Streptococcus END OF REPORT * ML = Testing performed at Main Lab DEPARTMENT OF PATHOLOGY, [facility] [employer] [place], [place] [address] Luis Chamorro M.D. Director [facility] Permit #[id number] 80 Because ethnic data is not always readily [...] 15-29 5 Kidney failure <15 (or dialysis) 81 Consistent with previous results. 82 RUN DATE: 07/10/13 [facility] LAB LIVE PAGE 1 RUN TIME: 6243 028 [employer] [place], [place] [address] Specimen Inquiry Name: TRINA KEEN : [address]: Lena Choudhury MD Acct: [id number] Unit: [id number] AGE: 68 Location: [facility] Re07/09/13 SEX: F Status: REG REF SPEC: [id number] OTONIEL: 07/09/13-2 [facility] [address]: Lena Choudhury MD REQ: [id number] RECD: 07/09/13 STATUS: SOUT _ ORDERED: IMAGE ANALYSIS FINAL DIAGNOSIS Negative for Intraepithelial lesion or Malignancy A. Ectocervical/Endocervical Specimen Adequacy: Satisfactory of evaluation Transformation zone component identified Patient Information: HPV: Thin Layer Pap Test only (NO HPV TESTING) Actual Specimen Date: 07/09/13 Post Menopausal?: Y Signed (signature on file) Kiera Flores ID (ASCP) 07/10/13 1227 This Pap test was evaluated with the assistance of the ThinPrep Test Imaging System. Due to cytologic findings at the director of transportation microscope, comprehensive manual rescreening by a Accounts Receivable Analyst may be required. The Pap Smear is [...] every 1-3 years. END OF REPORT * ML = Testing performed at Main Lab DEPARTMENT OF PATHOLOGY, [address] [place] [address] Luis Chamorro M.D. Director [facility] Permit #[id number] 83 Consistent with previous results. 84 Consistent with previous results. 85 Consistent with previous results. 86 Because ethnic data is not always readily [...] 15-29 5 Kidney failure <15 (or dialysis) 87 Consistent with previous results. 88 Because ethnic data is not always readily [...] 15-29 5 Kidney failure <15 (or dialysis) 89 HDL Interpretation: Undesirable: High Risk: Less than 40 mg/dL Desirable: Low Risk: Greater than 60 mg/dL 90 LDL Interpretation: Low Risk Optimal Level: LDL Less than 100 mg/dL Near or Above Optimal: LDL 100-129 mg/dL Borderline High Risk: LDL 130-159 mg/dL High Risk: LDL 160-189 mg/dL Very High Risk: LDL Greater than 189 mg/dL Procedures Date Code Description Status 12/01/2017 56337 Open TX Proximal Humeral FX Incl Fixation When Completed Performed 12/01/2017 05460 Open TX Proximal Humeral FX Incl Fixation When Completed Performed 11/28/2017 55007 EKG, Interpretation Only Completed 11/25/2017 36993 Open TX Of Femoral FX,Promimal End,Neck Internal Completed Fixation 11/25/2017 01663 Open TX Of Femoral FX,Promimal End,Neck Internal Completed Fixation 11/24/2017 12522 Repair Superfic Wound < 2.6CM Completed Scalp/Neck/Axil/Genit/Trunk/Extr 05/10/2017 80843 EKG, Interpretation Only Completed 05/10/2017 59182 FX TX Inter/Pinky Or Sub Chanteric Femoral FX Completed W/Implant 05/10/2017 00554 FX TX Inter/Pinky Or Sub Chanteric Femoral FX Completed W/Implant 05/03/2016 85738 Holter Monitor Review (24 hr)dr shea & aubrie only Completed 05/02/2016 71313 ECG Monitor/Recording W/Visual Superimposition Completed Scanning 05/02/2016 96343 Stress Test Completed 05/02/2016 98426 Myocardial Perfusion Imaging Tomographic (Spect) Completed Multiple Studies 04/21/2016 78168 EKG Tracing & Interpretation Completed 01/31/2016 10771 ECHO Transthorasic Realtime 2D W Doppler & Color Flow Completed Hosp 10/27/2015 69695 Pulmonary Function><Bronchodil Completed 10/27/2015 16717 Plethysmography Determination Lung Volumes & Per Completed Airway Resist 10/27/2015 85049 Diffusing Capacity Completed 09/20/2015 08012228 Colonoscopy Completed 02/23/2015 68039 Plethysmography Determination Lung Volumes & Per Completed Airway Resist 02/23/2015 01286 Pulmonary Function><Bronchodil Completed 02/17/2015 92420 EEG Recording Awake & Asleep Completed 11/11/2014 304820492 Bone Mineral Density Test Completed 11/11/2014 69420508 Mammogram Completed 11/27/2013 88531 Removal Devitalization Tissue Wound Less Than Equal 20 Completed Square CM 11/20/2013 92813 Removal Devitalization Tissue Wound Less Than Equal 20 Completed Square CM 09/16/2013 64671 EKG, Interpretation Only Completed 09/03/2013 45567 EKG Tracing & Interpretation Completed 09/25/2012 42455 ECHO Transthoracic, Real-Time 2D With Doppler And Completed Color Flow 09/18/2012 76228 Stress Test Completed 09/18/2012 71813 Myocardial Perfusion Imaging Tomographic (Spect) Completed Multiple Studies 09/11/2012 21412 EKG Tracing & Interpretation Completed Encounters Type Date Location Provider Dx Diagnosis Office Visit 01/28/2019 [facility] [address] Internal Ronna Johnson MD J44.1 Chronic obstructive 10:00a Medicine - [facility] pulmonary disease w (acute) exacerbation R91.8 Other nonspecific abnormal finding of lung field F41.9 Anxiety disorder, unspecified S32.82xD Mult fx of pelv w/o disrupt of pelv ring, 7thD Office Visit 01/17/2019 [facility] Tanika J44.1 Chronic 11:17a Assoc,pc VICKEY Alanis-C obstructive Hospitalists pulmonary disease w (acute) exacerbation I10 Essential (primary) hypertension Office Visit 01/16/2019 [facility] Carmen Last J44.1 Chronic 11:16a Assocrachel M.D. obstructive Hospitalists pulmonary disease w (acute) exacerbation I10 Essential (primary) hypertension F41.9 Anxiety disorder, unspecified R91.1 Solitary pulmonary nodule Office Visit 01/04/2019 [facility] Enedelia S32.591A Oth fracture 11:20a Assoc,pc VICKEY Zaldivar of right Hospitalists pubis, init encntr for closed fracture W19.xxxD Unspecified fall, subsequent encounter Office Visit 01/03/2019 11:23a Orthopedic Mee Castillo S32.511A Fracture of Services Of M.D. superior rim of C.M.A. right pubis, init for clos fx W19.xxxA Unspecified fall, initial encounter Office Visit 01/03/2019 Orthopedic Mee S32.511A Fracture of 11:22a Services Of John Castillo M.D. superior rim of right pubis, init for clos fx Office Visit 01/03/2019 [facility] S32.9xxA Fracture of unsp 11:20a Assoc,pc Belinda, RN HYPERBARIC parts of Hospitalists lumbosacral spine and pelvis, init W19.xxxA Unspecified fall, initial encounter Y92.[address] in [facility] non-institut (private) residence as place D64.9 Anemia, unspecified E87.1 Hypo-osmolality and hyponatremia J44.9 Chronic obstructive pulmonary disease, unspecified J96.11 Chronic respiratory failure with hypoxia I25.10 Athscl heart disease of [place] coronary artery w/o ang pctrs I10 Essential (primary) hypertension F41.8 Other specified anxiety disorders Office Visit 10/31/2018 10:30a Pulmonology And Muna J44.9 Chronic Sleep Services Of MD Leonel obstructive [facility] [address] pulmonary disease, unspecified R09.02 Hypoxemia Office Visit 08/20/2018 Suzy [facility] [address] Internal Daxa I10 Essential 10:00a Paty James M.D. (primary) hypertension Office Visit 08/16/2018 [facility] [address] Internal Medicine - Ronna Johnson, I10 Essential 2:20p Konstantin GONZALEZ (primary) hypertension Office Visit 06/17/2018 Suzy [facility] [address] Internal Daxa I10 Essential 10:00a Paty James M.D. (primary) hypertension J44.9 Chronic obstructive pulmonary disease, unspecified L03.032 Cellulitis of left toe M81.0 Age-related osteoporosis w/o current pathological fracture F41.9 Anxiety disorder, unspecified Office Visit 05/01/2018 10:30a Pulmonology And Muna J44.9 Chronic Sleep Services Of MD Leonel obstructive [facility] [address] pulmonary disease, unspecified R09.02 Hypoxemia Office Visit 02/18/2018 10:00a Orthopedic Mee Castillo, Z47.1 Aftercare Services Of Dean following joint C.M.A. replacement surgery Z96.641 Presence of right artificial hip joint M25.552 Pain in left hip Office Visit 01/14/2018 10:20a [facility] [address] Internal Daxa J44.9 Chronic Medicine - Cotton, M.D. obstructive [facility] pulmonary disease, unspecified S42S Unsp disp fx of surgical neck of left humerus, sequela I10 Essential (primary) hypertension E03.9 Hypothyroidism, unspecified M81.0 Age-related osteoporosis w/o current pathological fracture Office Visit 12/04/2017 11:08a [facility] S72.001A Fracture of Assoc,pc Pebbles, DO unsp part of Hospitalists neck of right femur, init S42.A Unsp disp fx of surgical neck of left humerus, init J44.9 Chronic obstructive pulmonary disease, unspecified E87.1 Hypo-osmolality and hyponatremia Office Visit 12/03/2017 11:07a [facility] S72.001A Fracture of Assoc,pc Pebbles, DO unsp part of Hospitalists neck of right femur, init S42.A Unsp disp fx of surgical neck of left humerus, init J44.9 Chronic obstructive pulmonary disease, unspecified E87.1 Hypo-osmolality and hyponatremia Office Visit 12/02/2017 11:06a [facility] S72.001A Fracture of Assoc,rachel Harris M.D. unsp part of Hospitalists neck of right femur, init S42.A Unsp disp fx of surgical neck of left humerus, init J44.9 Chronic obstructive pulmonary disease, unspecified E87.1 Hypo-osmolality and hyponatremia Office Visit 12/01/2017 11:05a [facility] S72.001A Fracture of Assoc,rachel Harris M.D. unsp part of Hospitalists neck of right femur, init S42.A Unsp disp fx of surgical neck of left humerus, init J44.9 Chronic obstructive pulmonary disease, unspecified E87.1 Hypo-osmolality and hyponatremia Office Visit 11/30/2017 11:03a [facility] S72.001A Fracture of Assoc,rachel Harris M.D. unsp part of Hospitalists neck of right femur, init S42.A Unsp disp fx of surgical neck of left humerus, init J44.9 Chronic obstructive pulmonary disease, unspecified E87.1 Hypo-osmolality and hyponatremia Office Visit 11/29/2017 11:02a [facility] Taylor Oropeza, S72.001A Fracture of Assoc,pc N.P. unsp part of Hospitalists neck of right femur, init S42.212A Unsp disp fx of surgical neck of left humerus, init J44.9 Chronic obstructive pulmonary disease, unspecified E87.1 Hypo-osmolality and hyponatremia Office Visit 11/28/2017 11:01a [facility] Katie S72.001A Fracture of Assoc,pc Senner, DO unsp part of Hospitalists neck of right femur, init S42.212A Unsp disp fx of surgical neck of left humerus, init J44.9 Chronic obstructive pulmonary disease, unspecified E87.1 Hypo-osmolality and hyponatremia Office Visit 11/27/2017 11:00a [facility] Katie S72.001A Fracture of Assoc,pc Senner, DO unsp part of Hospitalists neck of right femur, init S42.212A Unsp disp fx of surgical neck of left humerus, init J44.9 Chronic obstructive pulmonary disease, unspecified E87.1 Hypo-osmolality and hyponatremia Office Visit [facility] S[facility] Fracture of Assoc,pc Davi [place], unsp part of Hospitalists RN HYPERBARIC neck of right femur, init S42.212A Unsp disp fx of surgical neck of left humerus, init J44.9 Chronic obstructive pulmonary disease, unspecified Office Visit 11/25/2017 1:44p Orthopedic Be S42.201A Unsp fracture Services Of MD Dillon of upper end of C.M.A. right humerus, init Office Visit 11/25/2017 1:44p Orthopedic Mee Castillo S72.041A Disp fx of base Services Of Dean of neck of C.M.A. right femur, init for clos fx W19.xxxA Unspecified fall, initial encounter Office Visit 11/25/2017 10:58a [facility] Beverly S72.001A Fracture of Assoc,pc Davi [place], unsp part of Hospitalists RN HYPERBARIC neck of right femur, init J44.9 Chronic obstructive pulmonary disease, unspecified E87.1 Hypo-osmolality and hyponatremia Office Visit 11/24/2017 1:43p Orthopedic Be S72.001A Fracture of Services Of [facility] [place] unsp part of C.M.A. 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 general adult medical exam w/o abnormal findings L76.32 Postproc hematoma of skin, subcu following other procedure E03.9 Hypothyroidism, unspecified M81.0 Age-related osteoporosis w/o current pathological fracture J44.9 Chronic obstructive pulmonary disease, unspecified I10 Essential (primary) hypertension D70.9 Neutropenia, unspecified Office 09/21/2017 Orthopedic Andrae Campos, S72.142A Displaced Visit 10:30a Services Of intertrochanteric C.M.A. fracture of left femur, init L76.32 Postproc hematoma of skin, subcu following other procedure Office Visit 05/29/2017 11:11a Pulmonology And Muna J44.1 Chronic Sleep Services Of MD [place] obstructive Commercial Carpet Installer pulmonary disease w (acute) exacerbation A49.8 Other bacterial infections of unspecified site Z99.81 Dependence on supplemental oxygen Office Visit 05/14/2017 7:04a [facility] Eugenie J43.9 Emphysema, Assoc,rachel Bland M.D. unspecified Hospitalists I25.10 Athscl heart disease of [place] coronary artery w/o ang pctrs R33.0 Drug induced retention of urine S72.002A Fracture of unsp part of neck of left femur, init Office Visit 05/10/2017 7:02a [facility] Lele J43.9 Emphysema, Assoc,rachel Harris M.D. unspecified Hospitalists I25.10 Athscl heart disease of [place] coronary artery w/o ang pctrs S72.002A Fracture of unsp part of neck of left femur, init I10 Essential (primary) hypertension Office Visit 05/09/2017 7:01a [facility] Ann J43.9 Emphysema, Assoc,Jean Claude CalixtoO. unspecified Hospitalists I25.10 Athscl heart disease of [place] coronary artery w/o ang pctrs S72.002A Fracture of unsp part of neck of left femur, init I10 Essential (primary) hypertension Office 05/09/2017 Orthopedic Andrae Beth, S72.142A Displaced Visit 12:16p Services Of MD umanzorantersteffany Lopez fracture of left femur, init Office 03/27/2017 [facility] [address] Internal [place] F41.9 Anxiety disorder, Visit 10:40a Sherlyn James M.D. unspecified Ccmob I10 Essential (primary) hypertension R05 Cough E03.9 Hypothyroidism, unspecified D70.9 Neutropenia, unspecified Office Visit 03/01/2017 1:15p Pulmonology And Muna J44.9 Chronic Sleep Services Of [place] obstructive Commercial Carpet Installer pulmonary disease, unspecified R09.02 Hypoxemia R06.00 Dyspnea, unspecified F41.9 Anxiety disorder, unspecified Z79.899 Other long-term (current) drug therapy Office Visit 02/22/2017 10:40a [facility] [address] Internal [place] F41.9 Anxiety disorder, Sherlyn James M.D. unspecified Konstantin J44.1 Chronic obstructive pulmonary disease w (acute) exacerbation D70.9 Neutropenia, unspecified Office Visit 08/25/2016 10:40a [facility] [address] Internal Dxaa Z00.00 Encntr for Medicine - Konstantin James M.D. 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 immunization Ccmob R06.02 Shortness of breath G47.00 Insomnia, unspecified R00.2 Palpitations I10 Essential (primary) hypertension Office Visit 04/21/2016 4:40p [facility] [address] Internal [place] R06.02 Shortness of Medicine Leila James M.D. breath Ccmob I10 Essential (primary) hypertension J44.1 Chronic obstructive pulmonary disease w (acute) exacerbation Office Visit 02/14/2016 Pulmonology And Muna Leonel J44.1 Chronic 11:45a Sleep Services Of MD guzman [facility] [address] pulmonary disease w (acute) exacerbation Office Visit 02/08/2016 [facility] [address] Internal [place] J44.1 Chronic 10:20a Sherlyn James M.D. obstructive pulmonary disease w (acute) exacerbation D72.819 Decreased white blood cell count, unspecified E87.5 Hyperkalemia Office Visit 01/31/2016 9:08a [place] Davis Campbell44.1 Chronic Assoc,rachel Bland M.D. obstructive Hospitalists pulmonary disease w (acute) exacerbation I10 Essential (primary) hypertension E78.0 Pure hypercholesterolemia E03.9 Hypothyroidism, unspecified Office Visit 01/30/2016 9:07a [place] Davis Traore J44.1 Chronic Assoc,rachel Bland M.D. obstructive Hospitalists pulmonary disease w (acute) exacerbation I10 Essential (primary) hypertension Office Visit 01/29/2016 9:07a [place] Davis Traore J44.1 Chronic Assoc,rachel Bland M.D. obstructive Hospitalists pulmonary disease w (acute) exacerbation I10 Essential (primary) hypertension E78.0 Pure hypercholesterolemia Office Visit 01/28/2016 [facility] Annmarie J44.1 Chronic 9:06a Assoc,rachel Freeman, RN HYPERBARIC obstructive Hospitalists pulmonary disease w (acute) exacerbation I10 Essential (primary) hypertension E78.0 Pure hypercholesterolemia E03.9 Hypothyroidism, unspecified Office Visit 11/23/2015 10:00a [facility] [address] Internal [place] I10 Essential ( primary) Sherlyn James M.D. hypertension Ccmob D72.819 Decreased white blood cell count, unspecified E03.9 Hypothyroidism, unspecified L72.0 Epidermal cyst Office Visit 11/16/2015 Pulmonology And Muna Castaneda J44.9 Chronic 10:00a Sleep Services Of MD thomas Steve pulmonary disease, unspecified Office Visit 10/12/2015 Pulmonology And Adrian Da Silva44.9 Chronic 2:00p Sleep Services Of MD thomas Steve pulmonary disease, unspecified Office Visit 08/24/2015 [facility] [address] Internal [place] Z00.00 Encntr for 1:20p Sherlyn James M.D. general adult medical exam w/o abnormal findings Z87.891 Personal history of nicotine dependence J44.1 Chronic obstructive pulmonary disease w (acute) exacerbation D72.819 Decreased white blood cell count, unspecified I10 Essential (primary) hypertension Z12.11 Encounter for screening for malignant neoplasm of colon E03.9 Hypothyroidism, unspecified Office Visit 07/13/2015 10:00a [facility] [address] Internal [place] J44.1 Chronic Sherlyn James M.D. obstructive Ccmob pulmonary disease w (acute) exacerbation D72.819 Decreased white blood cell count, unspecified R60.0 Localized edema Z23 Encounter for immunization Office Visit 07/06/2015 11:42a [facility] Lele J44.1 Chronic Assoc,rachel Harris M.D. obstructive Hospitalists pulmonary disease w (acute) exacerbation E03.9 Hypothyroidism, unspecified Office Visit 07/05/2015 11:38a [facility] Adrian Cruz44.1 Chronic Assocrachel M.D. obstructive Hospitalists pulmonary disease w (acute) exacerbation E03.9 Hypothyroidism, unspecified Office Visit 06/23/2015 9:20a [facility] [address] Internal [place] J18.9 Pneumonia, Sherlyn James M.D. unspecified Ccmob organism R60.0 Localized edema M76.62 Achilles tendinitis, left leg Office Visit 06/03/2015 9:20a [facility] [address] Internal [place] J44.9 Chronic Sherlyn James M.D. obstructive Ccmob pulmonary disease, unspecified D72.819 Decreased white blood cell count, unspecified E03.9 Hypothyroidism, unspecified I10 Essential (primary) hypertension Office Visit 02/09/2015 [facility] [address] Internal [place] 288.50 Leukocytopenia, 1:20p Sherlyn James M.D. 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 Unspecified Ccmob 496 COPD Airway Obstruction Chronic Not Class Elsewhere V03.82 Streptococcus Pneumoniae Vaccination Spec Other Office Visit 08/10/2014 10:20a [facility] [address] Internal [place] V70.0 Examination Sherlyn James M.D. General Medical Ccmob Routine AT Health Care Facility 244.9 Hypothyroidism Other Unspec 496 COPD Airway Obstruction Chronic Not Class Elsewhere 627.9 Menopausal & Postmenopausal Disorder Unspec V76.12 Screening Mammogram Malig Dimitry Other 288.50 Leukocytopenia, Unspecified Office Visit 06/05/2014 9:40a [facility] [address] Internal [place] 496 COPD Airway Medicine - Konstantin James M.D. 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 244.9 Hypothyroidism Other Unspec 272.2 Hyperlipidemia Mixed 401.1 Hypertension Benign V04.81 Need For Prophylactic Vaccination & Inoculation/Influenza Office Visit 02/05/2014 8:45a Geronimo Gong 345.90 Epilepsy Unspec Neurologic Dean Berry W/O Intractable Services Of [facility] [address] Office Visit 12/26/2013 11:20a [facility] [address] Internal Lena Choudhury, 195.0 Malignant Medicine - Konstantin Moran Neoplasm Head Face & Neck Other Ill Defined 496 COPD Airway Obstruction Chronic Not Class Elsewhere Office Visit 12/04/2013 11:16a Wound Care Yunier Gilbert 998.32 [address] [facility] Dean Moralez External Operation (Surgical) Wound Office Visit 12/03/2013 11:20a [facility] [address] Internal Lena Choudhury, 195.0 Malignant Neoplasm Medicine - M.D. Head Face & Neck Ccmob Other Ill Defined Office Visit 11/20/2013 10:51a Wound Care Yunier Gilbert 998.32 Disruption [address] [facility] Dean Moralez External Operation (Surgical) Wound Office Visit 11/03/2013 10:00a [facility] [address] Internal Lena Choudhury, 496 COPD Airway Medicine - M.D. Obstruction Ccmob Chronic Not Class Elsewhere 783.21 Loss Of Weight 311 Depressive Disorder Not Elsewhere Spec 401.1 Hypertension Benign Office Visit 09/29/2013 9:00a [facility] [address] Internal Lena Choudhury, 195.0 Malignant Medicine - Ccmob M.D. 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 Neoplasm Head Hospitalists Face & Neck Other Ill Defined 492.8 Emphysema Other 276.1 Hyposmolality & Or Hyponatremia Office Visit 09/15/2013 4:56p [facility] Ashu Baldwin 195.0 Malignant Assoc,pc M.D. Neoplasm Head Hospitalists Face & Neck Other Ill Defined 492.8 Emphysema Other 276.1 Hyposmolality & Or Hyponatremia 518.0 Pulmonary Collapse Office Visit 09/14/2013 4:55p [facility] Ashu Baldwin, 195.0 Malignant Assoc,pc M.D. 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 Unspecified Ccmob 496 COPD Airway Obstruction Chronic Not Class Elsewhere 462 Pharyngitis Acute 784.2 Swelling In Head & Neck Office Visit 08/08/2013 11:40a [facility] [address] Yony Choudhury, 466.0 Bronchitis Acute [facility] M.DCorbin 288.50 Leukocytopenia, Unspecified 496 COPD Airway Obstruction Chronic Not Class Elsewhere 785.6 Lymph Nodes Enlargement Office Visit 07/09/2013 9:40a [facility] [address] Yony Choudhury, V72.31 Routine Procurement Technician Medicine - M.DCorbin Examination Ccmob V76.10 Screening For Malignant Neoplasm Breast V76.2 Screening Malignant Neoplasm Cervix 783.21 Loss Of Weight 496 COPD Airway Obstruction Chronic Not Class Elsewhere 288.50 Leukocytopenia, Unspecified 401.9 Hypertension Unspec 683 Lymphadenitis Acute 466.0 Bronchitis Acute 627.9 Menopausal & Postmenopausal Disorder Unspec V70.0 Examination General Medical Routine AT Health Care Facility Office Visit 06/10/2013 9:45a Geronimo Gong 345.10 Epilepsy Neurologic Dean Berry Convulsive W/O Services Of [facility] [address] Intractable 288.50 Leukocytopenia, Unspecified E936.3 Other & Unspec Anticonvulsants Adverse Effects Office Visit 05/14/2013 9:00a [facility] [address] Internal Lena Choudhury, 496 COPD Airway Medicine - Konstantin MCorbinDCorbin Obstruction Chronic Not Class Elsewhere Office Visit 02/28/2013 1:40p [facility] [address] Yony Choudhury, 496 COPD Airway Medicine - [facility] M.DCorbin Obstruction Chronic Not Class Elsewhere 783.21 Loss Of Weight 276.1 Hyposmolality & Or Hyponatremia Office Visit 01/24/2013 11:20a [facility] [address] Yony Choudhury, 789.01 Pain Abdominal [facility] M.DCorbin Right Upper Quadrant 288.50 Leukocytopenia, Unspecified 496 COPD Airway Obstruction Chronic Not Class Elsewhere 414.0 Coronary Atherosclerosis Office Visit 12/05/2012 9:45a Geronimo Gong 345.90 Epilepsy Unspec Neurologic Dean Berry W/O Intractable Services Of [facility] [address] 288.50 Leukocytopenia, Unspecified Office Visit 09/27/2012 10:30a [facility] Merlin Silverio 785.1 Palpitations Of Power Nair M.D. 786.05 Shortness Of Breath Office Visit 09/11/2012 1:00p [facility] Merlin D. 786.50 Pain Chest Of [facility] [address] Dean Nair Unspec 786.05 Shortness Of Breath 785.1 Palpitations Office Visit 06/06/2012 11:45a Geronimo Gong 780.39 Convulsions Other Neurologic Dean Berry Services Of [facility] [address] 288.50 Leukocytopenia, Unspecified Plan of Treatment Future Appointment(s):05/01/2019 10:30 am - Muna Castaneda MD at Pulmonology And Sleep Services Of [facility] [address]03/04/2019 - Daxa James M.D.R91.8 Other nonspecific abnormal finding of lung fieldComments:I will talk to Dr. Castaneda about the scan, we will schedule in March.J44.1 Chronic obstructive pulmonary disease with (acute) exacerbatComments:I will let you know about the prednisone Continue PTF41.9 Anxiety disorder, unspecifiedComments:Continue alprazolam for anxietyReduce alcohol! Maximum is 1 day
[2019-04-24 17:44] VITALS: BP 152/85
[2019-04-24] MEDS ORDERED: ceFAZolin 500 MG VIAL(*) 500 MG VIAL IM ONE (17:51)
[2019-04-24] MEDS ORDERED: cefTRIAXone VIAL(*) 1,000 MG VIAL IM ONE (17:56)
--- NOTE | 2019-04-24 17:59 | UC ---
Skin Complaint HPI - HPI Summary HPI Summary: 73-year-old woman comes in with a chief complaint of redness of right hand and forearm. 4 days ago the patient was bitten by her cat on her right hand. About 2 days ago started getting some redness now the redness is spread onto the dorsum of her hand and is into her forearm. She does have pain with range of motion of the fingers and the wrist. No fevers or chills. Patient does have chronic COPD and she is on prednisone 5 mg a day. - History of Current Complaint Chief Complaint: UCBiteInjury Time Seen by Provider: 04/24/19 17:36 Stated Complaint: RED SWOLLEN HAND Hx Last Menstrual Period: post Pain Intensity: 9 - Allergy/Home Medications Allergies/Adverse Reactions: Allergies Allergy/AdvReac Type Severity Reaction Status Date / Time lamotrigine Allergy Severe Rivera Verified 04/24/19 17:48 -Johnsons SYndrome bupropion Allergy Rash Verified 04/24/19 17:48 doxycycline Allergy Abdominal Verified 04/24/19 17:48 Pain levofloxacin Allergy Swelling Verified 04/24/19 17:48 zonisamide Allergy decreases Verified 04/24/19 17:48 WBCs ciprofloxacin AdvReac Muscle Ache Verified 04/24/19 17:48 levetiracetam [From Keppra] AdvReac decreases Verified 04/24/19 17:48 WBCs lorazepam [From Ativan] AdvReac Altered Verified 04/24/19 17:48 Mental Status morphine AdvReac Hallucinati Verified 04/24/19 17:48 ons nifedipine [From Procardia] AdvReac Rash Verified 04/24/19 17:48 topiramate AdvReac Tachycardia Verified 04/24/19 17:48 Home Medications: Home Medications Albuterol/Ipratropium RESP(NF) [Combivent Respimat (NF)] 2 puff INH QID [History Confirmed 04/24/19] Calcium Carbonate [Calcium] 1,200 mg PO DAILY 04/24/19 [History Confirmed ] Cholecalciferol (Vitamin D3) [Vitamin D3] 1 tab PO DAILY 04/24/19 [History Confirmed 04/24/19] predniSONE TAB* [Deltasone TAB*] 5 mg PO DAILY 04/24/19 [History Confirmed 04/24] PMH/Surg Hx/FS Hx/Imm Hx Previously Healthy: Yes Endocrine History: Hypothyroidism Cardiovascular History: Cardiac Disease, Hypertension Respiratory History: COPD Other History Of: Negative For: Anticoagulant Therapy - Surgical History Surgical History: Yes Surgery Procedure, Year, and Place: 08/27/13 - surgery [facility]s, salivary gland and lymph node removed from left neck. [facility]. bilat hips and shoulder repaired right, left femur - Family History Known Family History: Positive: None, Cardiac Disease, Respiratory Disease - emphysema Negative: Hypertension - Social History Alcohol Use: Daily Alcohol Amount: 2-3 GLASSES/DAY Substance Use Type: None Smoking Status (MU): Former Smoker Type: Cigarettes Amount Used/How Often: 45 years Length of Time of Smoking/Using Tobacco: 07/30/2011 Have You Smoked in the Last Year: No When Did the Patient Quit Smoking/Using Tobacco: 07/30/2011 Household Exposure Type: Cigarettes - Immunization History Most Recent Influenza Vaccination: 2017 Most Recent Tetanus Shot: UNKNOWN Most Recent Pneumonia Vaccination: 2013 Review of Systems All Other Systems Reviewed And Are Negative: Yes Constitutional: Positive: Negative Skin: Positive: Other - SEE HPI Eyes: Positive: Negative ENT: Positive: Negative Respiratory: Positive: Other - CHRONIC COPD Cardiovascular: Positive: Negative Gastrointestinal: Positive: Negative Motor: Positive: Other - SEE HPI Neurovascular: Positive: Negative Musculoskeletal: Positive: Other: - SEE HPI Neurological: Positive: Negative Psychological: Positive: Negative Is Patient Immunocompromised?: No Physical Exam Triage Information Reviewed: Yes Appearance: Well-Appearing, No Pain Distress, Well-Nourished Vital Signs: Initial Vital Signs Temp 97.8 F 04/24/19 17:33 Pulse 81 04/24/19 17:33 Resp 20 04/24/19 17:33 BP 152/85 04/24/19 17:33 Pulse Ox 91 04/24/19 17:33 Vital Signs Reviewed: Yes Eye Exam: Normal Eyes: Positive: Conjunctiva Clear Neck: Positive: Supple Respiratory: Positive: No respiratory distress, Other: - Patient is on oxygen Musculoskeletal: Positive: Strength Intact Neurological: Positive: Alert Psychological: Positive: Age Appropriate Behavior Skin: Positive: Other - Right hand has blanching erythema on the dorsum. Is no erythema on the palmar aspect. There is erythema in the forearm that streaks approximately approximate two thirds of the distance to the elbow. There is no erythema at the elbow. Patient does have tenderness with range of motion of the fingers and wrist. There is a 1 cm linear healing laceration on the dorsum of the right hand. Fingers have normal capillary refill normal sensation. She does have full range of motion of the fingers and the wrist. Course/Dx - Course Course Of Treatment: The infection is on the dorsum of the hand and into the forearm. She does have pain with range of motion of the hand and there is concern for the possibilities of tendon involvement of the extensor surfaces. I discussed with the patient the risk of hand infections and how rapidly can spread. At this time the patient does not wish to go to the emergency department. Because her COPD the patient does not want to go the emergency department for the risk of getting a respiratory infection. In clinic the patient was given 1 g of Rocephin IM and her tetanus. I also started on Augmentin. I let the patient and her no that if this did not improve or if it worsened with spread of infection or fevers she needed to go the emergency department. - Diagnoses Provider Diagnosis: Cellulitis of hand, right, Cellulitis of forearm, right Discharge ED - Sign-Out/Discharge Documenting (check all that apply): Patient Departure All imaging exams completed and their final reports reviewed: No Studies - Discharge Plan Condition: Stable Disposition: HOME Prescriptions: Amoxicillin/Clavulanate TAB* [Augmentin TAB 875*] 875 mg PO BID #20 tab Patient Education Materials: Cellulitis (ED) Referrals: Daxa James MD [Primary Care Provider] - Be Patrick MD [Medical Doctor] - Additional Instructions: FOLLOW UP WITH DR PATRICK, ORTHOPEDICS TOMORROW, 04/25/19. GO TO THE EMERGENCY DEPARTMENT IF YOUR CONDITION DOES NOT IMPROVE OR WORSENS; SPREAD OF INFECTION, FEVER, YOU FEEL ILL OR ANY QUESTIONS OR CONCERNS. - Billing Disposition and Condition Condition: STABLE Disposition: Home
[2019-04-24] MEDS ORDERED: Lidocaine 1% MPF ** 5 ML VIAL IM ONE (18:00)
[2019-04-24] MEDS ORDERED: Tetan/Diph/Pertus SYR(Tdap)* 0.5 ML SYR(BOOSTRIX) use SYR contains LATEX IM ONE (18:03)
== END 2019-04-24 18:53 | disposition home or self-care (01) ==
LOC: UCEAST 17:22
DX: L03.113 Cellulitis of right upper limb (principal); Z23 Encounter for immunization; I10 Essential (primary) hypertension; J44.9 Chronic obstructive pulmonary disease, unspecified; Z99.81 Dependence on supplemental oxygen; Z88.1 Allergy status to other antibiotic agents; Z88.5 Allergy status to narcotic agent; Z88.8 Allergy status to other drugs, medicaments and biological substances; Z87.891 Personal history of nicotine dependence
CPT/HCPCS: 90471; 90715; 96372; 99212; G0463; J0696

== ENCOUNTER 2019-04-25 17:58 | Inpatient (IN) | payer MEDICARE ==
[2019-04-25 18:36] LABS: ABS Lymphocytes 0.4 10^3/ul (1.0-4.8); ABS Monocytes 0.8 10^3/ul (0-0.8); ABS Neutrophils 9.9 10^3/ul (1.5-7.7); Eosinophil % 0.1 %; Hematocrit 39 % (35-47); Hemoglobin 13.4 g/dL (12.0-16.0); Lymphocyte % 3.2 %; Mean Corpuscular HGB Conc 35 g/dL (31-36); Mean Corpuscular Hemoglobin 35 pg (27-31); Mean Corpuscular Volume 101 fL (80-97); Mean Platelet Volume 6.9 fL (7.4-10.4); Nucleated Red Blood Cells % 0.1; Platelet Count 193 10^3/uL (150-450); Red Blood Count 3.84 10^6 /uL (3.70-4.87); Red Cell Distribution Width 13 % (10-15); White Blood Count 11.2 10^3/uL (3.5-10.8)
--- NOTE | 2019-04-25 18:37 | ED ---
Bite Injury/Animal - HPI Summary HPI Summary: 73 year old F referred to [facility] by her primary care provider accompanied by complains of pain/erythema/swelling to right hand and right wrist since 6 nights ago after she was bit by her cat who is up to date on his immunizations. Patient states the swelling started 2 evenings ago. Patient denies fever. The patient rates the pain 6/10 in severity. Symptoms aggravated by nothing. Symptoms alleviated by nothing. Patient was seen at [facility] last night where she had a shot and was given a prescription for Augmentin, which she started taking last night. - History of Current Complaint Chief Complaint: EDAnimalBite Stated Complaint: SWOLLEN HAND FROM CAT BITE PER PT Time Seen by Provider: 04/25/19 18:08 Hx Obtained From: Patient Hx Last Menstrual Period: post Onset of Injury: Happened days ago - 6, Still Present Type of Bite: Pet - cat Has Animal Been Immunized?: Yes Severity Currently: Severe Pain Intensity: 9 Pain Scale Used: 0-10 Numeric Aggravating Factor(s): Nothing Alleviating Factor(s): Nothing Associated Signs And Symptoms: Negative: Fever - Allergies/Home Medications Allergies/Adverse Reactions: Allergies Allergy/AdvReac Type Severity Reaction Status Date / Time lamotrigine Allergy Severe Rivera Verified 04/25/19 18:07 -Johnsons SYndrome bupropion Allergy Rash Verified 04/25/19 18:07 doxycycline Allergy Abdominal Verified 04/25/19 18:07 Pain levofloxacin Allergy Swelling Verified 04/25/19 18:07 zonisamide Allergy decreases Verified 04/25/19 18:07 WBCs ciprofloxacin AdvReac Muscle Ache Verified 04/25/19 18:07 levetiracetam [From Keppra] AdvReac decreases Verified 04/25/19 18:07 WBCs lorazepam [From Ativan] AdvReac Altered Verified 04/25/19 18:07 Mental Status morphine AdvReac Hallucinati Verified 04/25/19 18:07 ons nifedipine [From Procardia] AdvReac Rash Verified 04/25/19 18:07 topiramate AdvReac Tachycardia Verified 04/25/19 18:07 PMH/Surg Hx/FS Hx/Imm Hx Endocrine/Hematology History: Reports: Hx Thyroid Disease - radiation induced hypothyrodism Denies: Hx Anticoagulant Therapy, Hx Blood Disorders, Hx Bone Marrow Disease , Hx Diabetes, Hx Systemic Lupus Erythematosus, Hx Sickle Cell Disease, Hx Anemia, Hx Unexplained Bleeding, Other Endocrine/Hematological Disorders Cardiovascular History: Reports: Hx Hypercholesterolemia - previously, Hx Hypertension, Other Cardiovascular Problems/Disorders - Raynauds disease of heart, hands and feet, severe Denies: Hx Aneurysm, Hx Angina, Hx Angioplasty, Hx Auto Implanted Cardiovert Defib, Hx Cardiac Arrest, Hx Cardiomegaly, Hx Congenital Heart Disease, Hx Congestive Heart Failure, Hx Coronary Artery Disease, Hx Deep Vein Thrombosis, Hx Embolism, Hx Hypotension, Hx Pacemaker/ICD, Hx Peripheral Vascular Disease, Hx Rheumatic Fever, Hx Syncope, Hx Valvular Heart Disease Respiratory History: Reports: Hx Chronic Bronchitis, Hx Chronic Obstructive Pulmonary Disease (COPD) - 2L O2 at all times [employer], Hx Pneumonia, Other Respiratory Problems/Disorders - PT STATES STRONG FAMILY HX OF GENETIC BASED EMPHYSEMA Denies: Hx Asthma, Hx Cystic Fibrosis, Hx Lung Cancer, Hx Pleural Effusion, Hx Pulmonary Edema, Hx Pulmonary Embolism, Hx Sleep Apnea GI History: Reports: Hx Gastrointestinal Bleed - 2007, Hx Obstructive Bowel - "twisted intestine", Other GI Disorders - colitis Denies: Hx Cirrhosis, Hx Crohn's Disease, Hx Diverticulosis, Hx Gall Bladder Disease, Hx Gastroesophageal Reflux Disease, Hx Hiatal Hernia, Hx Irritable Bowel, Hx Jaundice, Hx Ileostomy, Hx Pyloric Stenosis, Hx Ulcer History: Denies: Hx Acute Renal Failure, Hx Benign Prostatic Hyperplasia, Hx Chronic Renal Failure, Hx Dialysis, Hx Kidney Infection, Hx Kidney Stones, Hx Renal Disease, Other Problems/Disorders Musculoskeletal History: Denies: Hx Arthritis, Hx Rheumatoid Arthritis, Hx Back Problems, Hx Bursitis , Hx Congenital Bone Abnormalities, Hx Fibromyalgia, Hx Gout, Hx Orthopedic Injury, Hx Osteoporosis, Hx Scoliosis, Hx Tendonitis, Other Musculoskeletal History Sensory History: Reports: Hx Cataracts, Hx Contacts or Glasses Denies: Hx Eye Injury, Hx Eye Prosthesis, Hx Glaucoma, Hx Legally Blind, Hx Macular Degeneration, Hx Vision Problem, Hx Deafness, Hx Hearing Aid, Hx Hearing Problem, Other Sensory Impairments Opthamlomology History: Reports: Hx Cataracts, Hx Contacts or Glasses Denies: Hx Eye Injury, Hx Eye Prosthesis, Hx Glaucoma, Hx Legally Blind, Hx Macular Degeneration, Hx Vision Problem, Other Sensory Impairments Neurological History: Reports: Hx Seizures - 2007 febrile Denies: Hx Dementia, Hx Developmental Delay, Hx Headaches, Hx Migraine, Hx Nerve Disease, Hx Spinal Cord Injury, Hx Transient Ischemic Attacks (TIA), Other Neuro Impairments/Disorders Psychiatric History: Reports: Hx Anxiety - when SOB Denies: Hx Attention Deficit Hyperactivity Disorder, Hx Eating Disorder, Hx Depression, Hx Panic Disorder, Hx Post Traumatic Stress Disorder, Hx Inpatient Treatment, Hx Community Mental Health Tx, Hx Schizophrenia, Hx Bipolar Disorder , Hx Suicide Attempt, Hx of Violent Episodes Against Others, Hx Substance Abuse , Other Psychiatric Issues/Disorders - Cancer History Cancer Type, 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 D&C-[facility]. bilat hips and shoulder repaired right, left femur Hx Anesthesia Reactions: No Infectious Disease History: No Infectious Disease History: Denies: Hx Hepatitis, Hx Human Immunodeficiency Virus (HIV), Hx Tuberculosis , History Other Infectious Disease, Traveled Outside the [place] in Last 30 Days - Family History Known Family History: Positive: Cardiac Disease, Respiratory Disease - emphysema Negative: Hypertension - Social History Alcohol Use: Daily Alcohol Amount: 2-3 GLASSES/DAY Hx Substance Use: No Substance Use Type: Reports: None Hx Tobacco Use: Yes Smoking Status (MU): Former Smoker Type: Cigarettes Amount Used/How Often: 45 years Length of Time of Smoking/Using Tobacco: 07/30/2011 Have You Smoked in the Last Year: No Review of Systems Negative: Fever Positive: Other - pain/redness/swelling to the right hand and right wrist All Other Systems Reviewed And Are Negative: Yes Physical Exam - Summary Physical Exam Summary: Constitutional: Patient is chronically ill appearing and thin Skin: Warm, Dry, erythema to R hand HENT: Normocephalic; Atraumatic Eyes: Conjunctiva normal Neck: Musculoskeletal ROM normal neck. (-) JVD, (-) Stridor, (-) Nuchal rigidity Cardio: Rhythm regular, rate normal, Heart sounds normal; Intact distal pulses; Radial pulses are 2+ and symmetric. (-) Murmur Pulmonary/Chest wall: Effort normal. (-) Respiratory distress, (-) Wheezes, (-) Rales Abd: Soft, (-) tenderness, (-) Distension, (-) Guarding, (-) Rebound Musculoskeletal: Diffuse swelling and erythema of right hand extending to fingers and distal wrist, SILT. Lymph: (-) Cervical adenopathy Neuro: Alert, Oriented x3 Psych: Mood and affect Normal Triage Information Reviewed: Yes Vital Signs On Initial Exam: Initial Vitals Temp Pulse Resp BP Pulse Ox 97.8 F 76 20 144/84 100 04/25/19 18:01 04/25/19 18:01 04/25/19 18:01 04/25/19 18:01 04/25/19 18:01 Vital Signs Reviewed: Yes Diagnostics - Vital Signs Vital Signs Temp Pulse Resp BP Pulse Ox 04/25/19 18:01 97.8 F 76 20 144/84 100 - Laboratory Result Diagrams: 04/25/19 18:23 04/25/19 18:23 Lab Statement: Any lab studies that have been ordered have been reviewed, and results considered in the medical decision making process. - Radiology Right hand x-ray Radiology Interpretation Completed By: Radiologist Summary of Radiographic Findings: Diffuse soft tissues swelling. Pending official report Bite Injury Course/Dx - Course Course Of Treatment: 73 y/o F with cat bite p/w worsening swelling and erythema. - PE with diffuse swelling to R hand, check labs, ESR, BC, XR. - likely needs washout will d/w orthopedics - Diagnoses Provider Diagnosis: Cellulitis of hand, right, Cat bite of hand - Provider Notifications Discussed Care Of Patient With: Be Carranza Time Discussed With Above Provider: 18:53 Instructed by Provider To: Other - Dr. Carranza, orthopedics, recommends admission to the hospitalist and IV antibiotics. Dr. Last, hospitalist, agrees to admit patient at 19:21. Discharge ED - Sign-Out/Discharge Documenting (check all that apply): Patient Departure - Admit Patient Received Moderate/Deep Sedation with Procedure: No - Discharge Plan Condition: Stable Disposition: ADMITTED TO [facility] Referrals: Daxa James MD [Primary Care Provider] - - Billing Disposition and Condition Condition: STABLE Disposition: Admitted to [facility] - Attestation Statements Document Initiated by Scribe: Yes Documenting Scribe: Bobbi French Provider For Whom Scribe is Documenting (Include Credential): Yulissa Leon MD Scribe Attestation: Bobbi Roberts, scribed for Yulissa Leon MD on 04/25/19 at 1934. Scribe Documentation Reviewed: Yes Provider Attestation: The documentation as recorded by the scribe, Bobbi French accurately reflects the service I personally performed and the decisions made by me, Yulissa Leon MD Status of Scribe Document: Viewed
--- OUTSIDE RECORDS SUMMARY | 2019-04-25 18:39 | XMS REPORT | Continuity of Care Document ---
:1945 External Reference #:[id number] Author Name Darin Chacon NP (transmitted by agent of provider Shirlene Mahan) Address [address], [place] [address] Care Team Providers Name Role Phone William Kearney MD - Otolaryngology Care Team Information Plumbing Installer Daxa James MD - Internal Care Team Information Plumbing Installer [phone] Medicine Aminata Bello MD - Hematology & Care Team Information Plumbing Installer [phone] Oncology Muna Castaneda MD - Pulmonary Care Team Information Plumbing Installer [phone] Disease Arya Mendez DPM - Foot Surgery Care Team Information Plumbing Installer Problems Active Problems Provider Date Carcinoma in [...] the hip Mee Castillo M.D. Onset: 02/18/2018 Social History Type Date Description Comments Sex Unknown Tobacco Use Start: Unknown End: Former Cigarette Unknown Smoker Smoking Status Reviewed: 04/25/19 Former Cigarette Smoker ETOH Use Drinks 2 Alcoholic Beverages Per Day Tobacco Use Start: Unknown End: Patient is a former quit 02/07 Unknown smoker Recreational Drug Use Never Used Drugs Exercise Type/Frequency Exercises regularly Exercise Type/Frequency Physical therapy 2x per week plus home exercises Allergies, Adverse Reactions, Alerts Active Allergies Reaction Severity Comments Date Lamotrigine perkins-janes 06/19/2012 Lorazepam agitation, when mixed with Morphine Severe 01/24/2013 Nifedipine teeth became loose Severe 01/24/2013 Topiramate racing heart, fatigue , tight muscles Severe 01/24/2013 Levaquin achilles tendonitis 06/23/2015 Morphine 10/12/2015 Bupropion Rash 05/30/2016 Doxycycline stomach pain 03/27/2017 Medications Active Medications SIG Qnty Indications Ordering Date Provider Prednisone 1 by mouth every 30tabs Daxa 03/06/2019 5mg day Dean James Tablets Amlodipine Besylate 1 by mouth every 90tabs I10 Daxa 08/16/2018 day Dean James 5mg Tablets Levothyroxine Sodium take 2 pills on 120tabs Daxa 07/24/2018Mondays and Dean James 50mcg Tablets , one pill on other days Alburerol 1 vial qid prn in 150units J44.1 Muna Leonel, 07/18/2018 2.5mg/3ML nebulizer MD Solution Albuterol Sulfate 0.5 milliliters of 90units Muna Castaneda, 07/17/2018 concentrated MD (5mg/ML) 0.5% albuterol diluted Nebulizer with 2.5 milliliters of saline every 6 hours prn Irbesartan Take One Tablet By 90tabs I10 Daxa 02/18/2018 300mg Mouth Every Day Dean James Tablets Metoprolol Succinate Take One Tablet By 90tabs R00.2 Daxa 01/28/2018 ER Mouth Every Day Dean James 100mg Tablets ER 24HR Oxygen please use o2 at 1units R09.02 Muna Castaneda, 10/29/2017 Misc 2l/min during MD exertion, pls provide pt with light weight portable o2 concentrator Sertraline HCL Take One Tablet By 90tabs F41.9 Daxa 03/27/2017 50mg Mouth Every Day Dean James Tablets Alprazolam Take One Tablet By 120tabs F41.9 Daxa 02/22/2017 0.5mg Mouth Every 4 To 6 Dean James Tablets Hours as Needed For Anxiety, Maximum Daily Dose = 4 Atorvastatin Calcium Take One Tablet By 90tabs Daxa 10/27/2015 Mouth Every Day Dean James 10mg Tablets Ipratropium 1 vial in 90units I10 Muna [facility], 05/10/2015 [place]/Albuterol nebulizer q6h as Sulfate needed for asthma 0.5-2.5(3)mg/3ML Solution Combivent Respimat Inhale Two Puffs 24units [facility] 07/28/2014 By Mouth Four Dean James 20-100mcg/Act [...] needed Prednisone 1 by mouth every 5tabs [facility] 01/17/2019 - 50mg day.When Dean James 01/28/2019 Tablets finished begin 10 mg dose Prednisone 1 by mouth every 14tabs Muna Castaneda, 01/16/2019 - 10mg day 03/08/2019 Tablets Azithromycin take 2 tablets 6tabs Muna Castaneda, [...] 11/13/2018 Tablets tab daily for 4 days Medications Administered in Office Medication SIG Qnty Indications Ordering Provider Date Inj, Regadenoson, 0.1 MG Erick Garcia M.D., 05/02/2016 Injection AGUEDA SIM Technetium TC 99M Erick Garcia M.D., 05/02/2016 Tetrofosmin, Per Unit Dose AGUEDA SIM Up To 40 Millicuries Injection Inj, Regadenoson, 0.1 MG Merlin Nair M.D. 09/18/2012 Injection Technetium TC 99M Merlin Nair M.D. 09/18/2012 Tetrofosmin, Per Unit Dose Up To 40 Millicuries Injection Immunizations CPT Code Status Date Vaccine Reaction Lot # [id number] Given 05/03/2018 Fluzone High Dose [id number] Given 04/28/2016 Influenza Virus Vaccine, no reaction noted .. [id number] Quadrivalent, Split, hh Preservative Free 86259 Given 07/13/2015 Influenza Virus Vaccine, [id number] Quadrivalent, Split, Preservative Free 90024 Given 11/06/2014 Pneumococcal Conjugate [id number] Vaccine 13 Valent For Intramuscular Use 80201 Given 06/05/2014 Flu Vaccine Split Virus [id number] Preservative Free For Indiv 3Yr Older [id number] Given 09/03/2013 Fluvirin Im 3Yrs And Older 20235 Given 09/03/2013 Pneumonia Vaccine [id number] Vital Signs Date Vital Result Comment 04/25/2019 4:40pm Height 61 inches 5'1" Heart Rate 50 /min BP Systolic 119 mmHg BP Diastolic 72 mmHg Body Temperature 98.0 F O2 % BldC Oximetry 97 % 03/04/2019 3:42pm Height 61 inches 5'1" Weight 90.00 lb Heart Rate 83 /min BP Systolic 148 mmHg BP Diastolic 86 mmHg BP Systolic Sitting 137 mmHg recheck BP Diastolic Sitting 79 mmHg recheck O2 % BldC Oximetry 97 % on 2l BMI (Body Mass Index) 17.0 kg/m2 Results Test Date Facility Test Result H/L Range Note CBC Auto 01/16/2019 [facility] White Blood 10.1 10^3/uL Normal 3.5-10.[address] [place] [address] [phone] Red Blood Count 3.07 10^6/uL Low 3.70-4.87 [...] Blood Cells % 0.0 Laboratory test 01/16/2019 [facility] Lactic Acid 1.0 mmol/L Normal 0.5-2.0 1 finding [address] [place] [address] [phone] Comp Metabolic 01/16/2019 [facility] Sodium 133 mmol/L Low 135 -145 Panel [address] [place] [address] [phone] Potassium 3.9 mmol/L Normal 3.5-5.0 Chloride 94 [...] Egfr Non- 111.3 >60 Egfr 134.7 >60 2 Laboratory test 01/16/2019 [facility] Troponin-I (TnI) 0.00 ng/ mL <0.04 3 finding [address] [place] [address] [phone] D Dimer Quantitative 820 ng/mL High Less Than 230 4 B-Type Natriuretic Peptide BNP 184 pg/mL High <=100 Blood Culture SEE RESULT BELOW 5 CBC Auto 01/10/2019 [facility] Abs Neutrophils 5.6 10^3/uL Normal 1.5-7.[address] [place] [address] [phone] Abs Lymphocytes 0.6 10^3/uL Low 1.0-4.8 Abs [...] NOTE) 10^3/uL 150-450 8 Basic Metabolic 01/10/2019 [facility] Sodium 135 mmol/L Normal 135-[address] [place] [address] [phone] Chloride 98 mmol/L Low 101-111 Co2 Carbon Dioxide 28 mmol/L Normal 22-32 Calcium 8.7 mg/dL Normal 8.6-10.3 Potassium TNP mmol/L 3.5-5.0 9 Anion Gap 9 mmol/L Normal 2-11 Glucose 104 mg/dL High 70-100 Blood Urea Nitrogen 12 mg/dL Normal 6-24 Creatinine 0.44 mg/dL Low 0.51-0.95 BUN/Creatinine Ratio 27.3 High 8-20 Egfr Non- 141.0 >60 Egfr 170.6 >60 10 CBC Auto 01/03/2019 [facility] White Blood 10.6 10^3/uL Normal 3.5-10.[address] [place] [address] [phone] Red Blood Count 3.33 10^6/uL Low 3.70-4.87 [...] Cells % 0.0 Comp Metabolic Panel 01/03/2019 [facility] Sodium 130 mmol/L Low 135-[address] [place] [address] [phone] Potassium 4.0 mmol/L Normal 3.5-5.0 Chloride 94 [...] >60 Egfr 180.0 >60 11 Inr/Protime 01/03/2019 [facility] Inr 1.17 High 0.82-1.[address] [place], [place] [id number] [phone] Laboratory test 01/03/2019 [facility] Partial 37.0 Normal 26.0 -38.[address] [place] [address] Time PTT [phone] Folic Acid (Folate) 19.42 ng/mL >3.99 Vitamin B12 701 pg/mL Normal 180-914 13 1 [facility] Severe Sepsis and Septic Shock Management Bundle Measure requires all lactic acids initially measuring >2.0 mmol/L be repeated. 2 Because ethnic data is not always readily [...] 15-29 5 Kidney failure <15 (or dialysis) 3 Troponin-I testing on Plasma Separator Tubes (PST) has a known false positive rate of 0.20-0.40%. All positive troponins reflex immediately to secondary confirmatory testing. Using the [employer] DxI 800 Access Immunoassay systems, the 99th percentile upper reference limit was demonstrated to be < 0.03 ng/mL. 4 Please note: The following may produce a false positive D Dimer test: - Rheumatoid factor greater than 60 IU/ml - Plasma hemoglobin greater than 0.05 gm/dl - Bilirubin greater than 50 mg/dl - Lipids greater than 1000 mg/dl - FDP greater than 20 ug/ml 5 SEE RESULT BELOW Name: TRINA KEEN : [address]: Carmen Last MD Acct: [id number] Unit: [id number] AGE: 73 Location: [place] [address] Re01/16/19 Dis: 01/17/19 SEX: F Status: DIS [place] SPEC: [id number] OTONIEL: 01/16/19-[address] [facility] [address]: Shen Lozano MD REQ: [id number] RECD: 01/16/19-123 STATUS: JOHAN WILLIAMSON DR: Daxa James MD _ SOURCE: BLOOD,V[facility]: ORDERED: Blood Cult Procedure Result Reported Site Aerobic Culture Bottle Final 01/21/19- 1232 ML No Growth Day 5 Anaerobic Culture Bottle Final 01/21/19- 1232 ML No Growth Day 5 * ML - Main Lab . END OF REPORT DEPARTMENT OF PATHOLOGY, [address] [place] [address] Luis Chamorro M.D. Director [facility] # [id number] White count confirmed by estimate 7 [...] Range 145 to 180 Deficient Range <145 Procedures Date Code Description Status 11/25/2018 [id number] Mammogram Completed 09/20/2015 [id number] Colonoscopy Completed 11/11/2014 414848307 Bone Mineral Density Test Completed 11/11/2014 [id number] Mammogram Completed Medical Devices Description No Information Available Encounters Type Date Location Provider Dx Diagnosis Office Visit 03/04/2019 [facility] Internal Daxa James, R91.8 Other nonspecific 3:40p Medicine - Konstantin Moran abnormal finding of lung field J44.1 Chronic obstructive pulmonary disease w (acute) exacerbation F41.9 Anxiety disorder, unspecified Z91.81 History of falling Office Visit 01/28/2019 10:00a [facility] Internal Ronna Alex, J44.1 Chronic obstructive Medicine - Ccmob MD pulmonary disease w (acute) exacerbation R91.8 Other nonspecific abnormal finding of lung field F41.9 Anxiety disorder, unspecified S32.82xD Mult fx of pelv w/o disrupt of pelv ring, 7thD Office Visit 01/17/2019 [facility] Tanika J44.1 Chronic 11:17a Assoc,rachel Alanis PA-C obstructive Hospitalists pulmonary disease w (acute) exacerbation I10 Essential (primary) hypertension Office Visit 01/16/2019 [facility] Carmen Last, J44.1 Chronic 11:16a Assocrachel M.D. obstructive Hospitalists pulmonary disease w (acute) exacerbation I10 Essential (primary) hypertension F41.9 Anxiety disorder, unspecified R91.1 Solitary pulmonary nodule Office Visit 01/04/2019 [facility] Enedelia S32.591A Oth fracture 11:20a Assoc,VICKEY Mariscal of right Hospitalists pubis, init encntr for closed fracture W19.xxxD Unspecified fall, subsequent encounter Office Visit 01/03/2019 11:23a [facility] Meeeduin Castillo, S32.511A Fracture of at Eduardo Moran superior rim of right pubis, init for clos fx W19.xxxA Unspecified fall, initial encounter Office Visit 01/03/2019 [facility] Mee S32.511A Fracture of 11:22a at Eduardo Castillo M.D. superior rim of right pubis, init for clos fx Office Visit 01/03/2019 [facility] Juju S32.9xxA Fracture of unsp 11:20a Assoc,rachel Trevino, HAYDEN parts of Hospitalists lumbosacral spine and pelvis, init W19.xxxA Unspecified fall, initial encounter Y92.[address] in [facility] (private) residence as place D64.9 Anemia, unspecified E87.1 Hypo-osmolality and hyponatremia J44.9 Chronic obstructive pulmonary disease, unspecified J96.11 Chronic respiratory failure with hypoxia I25.10 Athscl heart disease of [place] coronary artery w/o ang pctrs I10 Essential (primary) hypertension F41.8 Other specified anxiety disorders Office Visit 10/31/2018 10:30a [facility] J44.9 Chronic [facility] obstructive [employer] pulmonary disease, unspecified R09.02 Hypoxemia Assessments Date Code Description Provider 04/25/2019 L03.113 Cellulitis of right upper limb Darin Chacon, HAYDEN 04/25/2019 W55.01xD Bitten by cat, subsequent encounter Darin Chacon NP 03/04/2019 R91.8 Other nonspecific abnormal finding of lung Daxa James M.D. [facility] 03/04/2019 J44.1 Chronic obstructive pulmonary disease with Daxa James M.D. (acute) exacerbat 03/04/2019 F41.9 Anxiety disorder, unspecified Daxa James M.D. 03/04/2019 Z91.81 History of falling Daxa James M.D. 01/28/2019 J44.1 Chronic obstructive pulmonary disease with Ronna Johnson MD (acute) exacerbat 01/28/2019 R91.8 Other nonspecific abnormal finding of lung Ronna Johnson MD [facility] 01/28/2019 F41.9 Anxiety disorder, unspecified Ronna Johnson MD 01/28/2019 S32.82xD Mult fx of pelv w/o disrupt of pelv ring, Ronna Johnson MD 7thD 01/17/2019 J44.1 Chronic obstructive pulmonary disease with Tanika Alanis PA-C (acute) exacerbat 01/17/2019 I10 Essential (primary) hypertension Tanika Alanis PA-C 01/16/2019 J44.1 Chronic obstructive pulmonary disease with Carmen Last M.D. (acute) exacerbat 01/16/2019 I10 Essential (primary) hypertension Carmen Last M.D. 01/16/2019 F41.9 Anxiety disorder, unspecified Carmen Last M.D. 01/16/2019 R91.1 Solitary pulmonary nodule Carmen Last M.D. 01/04/2019 S32.591A Other specified fracture of right pubis, VICKEY Pizarro initial encounter f 01/04/2019 W19.xxxD Unspecified fall, subsequent encounter VICKEY Pizarro 01/03/2019 S32.511A Fracture of superior rim of right pubis, Mee Castillo M.D. initial encounter for closed fracture 01/03/2019 S32.9xxA Fracture of unspecified parts of Juju Belinda, KNOCK OUT HAND lumbosacral spine and pelvi 01/03/2019 W19.xxxA Unspecified fall, initial encounter Mee Castillo M.D. 01/03/2019 W19.xxxA Unspecified fall, initial encounter Juju Belinda, KNOCK OUT HAND 01/03/[address] in unspecified Juju Belinda, KNOCK OUT HAND non-institutional (private) 01/03/2019 D64.9 Anemia, unspecified Juju Belinda, KNOCK OUT HAND 01/03/2019 S32.511A Fracture of superior rim of right pubis, Mee Castillo M.D. initial encounter for closed fracture 01/03/2019 E87.1 Hypo-osmolality and hyponatremia Juju Belinda, KNOCK OUT HAND 01/03/2019 J44.9 Chronic obstructive pulmonary disease, Juju Belinda, KNOCK OUT HAND unspecified 01/03/2019 J96.11 Chronic respiratory failure with hypoxia Juju Belinda, KNOCK OUT HAND 01/03/2019 I25.10 Athscl heart disease of [place] coronary Juju Belinda, KNOCK OUT HAND artery w/o ang pctrs 01/03/2019 I10 Essential (primary) hypertension Juju Belinda, KNOCK OUT HAND 01/03/2019 F41.8 Other specified anxiety disorders Juju Belinda, KNOCK OUT HAND 11/18/2018 Z00.00 Encounter for general adult medical Daxa James M.D. examination without abno 11/18/2018 M81.0 Age-related osteoporosis without current Daxa James M.D. pathological fractu 11/18/2018 M25.552 Pain in left hip Daxa James M.D. 11/18/2018 I25.2 Old myocardial infarction Daxa James M.D. 11/18/2018 Z12.31 Encounter for screening mammogram for Daxa James M.D. malignant neoplasm of 10/31/2018 J44.9 Chronic obstructive pulmonary disease, Muna Castaneda MD unspecified 10/31/2018 R09.02 Hypoxemia Muna Castaneda MD Plan of Treatment Future Appointment(s):05/01/2019 10:30 am - Muna Castaneda MD at [facility]04/25/2019 - Darin Chacon, NPL03.113 Cellulitis of right upper limbComments:Because you are worsening while on the antibiotics it is important that you go to the ER in order toreceive intravenous antibiotics.If this is not treated promptly you run the risk of losing your hand.W55.01xD Bitten by cat, subsequent encounter Functional Status Description No Information Available Mental Status Description No Information Available Referrals Description No Information Available
[2019-04-25 18:54] LABS: Albumin 4.5 g/dL (3.2-5.2); Albumin/Globulin Ratio 1.5 (1-3); BUN/Creatinine Ratio 30.2 (8-20); C Reactive Protein 114.4 mg/L (<8.01); Calcium 9.6 mg/dL (8.6-10.3); EGFR African American 137.6 (>60); EGFR Non-African American 113.7 (>60); Total Bilirubin 0.5 mg/dL (0.2-1.0); Total Protein 7.5 g/dL (6.4-8.9)
[2019-04-25] MEDS ORDERED: Piperacillin/Tazobac ADVAN(*) 3.375 GM in NS 0.9% 100 ML* 100 ML IVPB ONE (18:54)
[2019-04-25] MEDS ORDERED: Acetaminophen TAB* 325 MG PO PRN (20:29)
[2019-04-25] MEDS ORDERED: Albuterol 2.5 MG/3 ML NEB.SOL* (0.083%) INH PRN (20:54)
[2019-04-25] MEDS ORDERED: Zosyn per Pharmacy* NOTE FOLLOW UP SCH (21:00)
--- NOTE | 2019-04-25 22:38 | HP ---
CC: Dr. James; Dr. Carranza * HISTORY AND PHYSICAL: DATE OF ADMISSION: 04/25/19 PROVIDER: Mar Sorensen NP PRIMARY CARE PROVIDER: Dr. James ATTENDING PHYSICIAN WHILE IN THE HOSPITAL: Dr. Carmen Last * dictated by Mar Sorensen NP) CHIEF COMPLAINT: Right hand swelling. HISTORY OF PRESENT ILLNESS: Ms. Cabello is a 73-year-old female with a past medical history significant for COPD, oxygen dependent, hypertension, coronary artery disease, hypothyroidism, anxiety, depression, who presented to the emergency room with complaints of left hand swelling and pain. The patient reports that she was bit by a cat approximately 6 days ago. The patient reports swelling started 2 days ago and the last night the swelling and pain became worse. She reports she went to urgent care, at that time she was given 1 dose of IM antibiotics and started on Augmentin. She does report she is taking 2 doses of Augmentin, but the swelling and redness continued to increase , so she presented to the emergency room for further evaluation. She does complain of pain in the right hand at a 9, it is aching and throbbing in nature. Due to her underlying infection, hand swelling and needing for IV antibiotics, Hospitalist Medicine was asked to see and evaluate patient for admission. PAST MEDICAL HISTORY: Significant for: 1. COPD, oxygen dependent, on 2 L. 2. Hypertension. 3. Coronary artery disease. 4. Hypothyroid. 5. Depression. 6. Anxiety. 7. Raynaud's. 8. History of oral cancer, status post radiation in 2013. PAST SURGICAL HISTORY: 1. Left hip ORIF. 2. Right hip. 3. Oral cancer lymph node resection 2013. 4. Right shoulder. HOME MEDICATIONS: Include: 1. Symbicort 60/4.5 two puffs b.i.d. 2. Amlodipine 5 mg p.o. daily. 3. Zoloft 50 mg p.o. daily. 4. Metoprolol 100 mg p.o. daily. 5. Levothyroxine 50 mcg p.o. daily. 6. Irbesartan 150 mg p.o. daily. 7. Atorvastatin 10 mg p.o. daily. 8. Combivent Respimat 2 puffs every 6 hours as needed. 9. DuoNeb as needed. The patient reports she does not use this very frequently. 10. Alprazolam 0.5 mg 3 times a day as needed. 11. Calcium 1200 mg p.o. daily. 12. Vitamin D3 1000 units p.o. daily. 13. Prednisone 5 mg p.o. daily. ALLERGIES: She has allergy to ATIVAN, LAMOTRIGINE, MORPHINE, NIFEDIPINE, TOPIRAMATE, LEVAQUIN, BUPROPION, and DOXYCYCLINE. FAMILY HISTORY: Mother with a history of COPD and hypertension. Father with CHF and hypertension. No reported history of diabetes or cancer in the family. SOCIAL HISTORY: The patient quit smoking in 2011, prior to that she smoked a pack a day for 40 years. She does drink 2 drinks of alcohol daily. Surrogate decision maker in the event she is unable to make her own decisions is her , Eloy. She is a full code. REVIEW OF SYSTEMS: The patient denies any fever, chills, or unintended weight loss. Denies any chest pain, edema, cough, hemoptysis, shortness of breath. No nausea, vomiting, diarrhea, abdominal pain, gross hematuria, dysuria, focal weakness, sensory loss, visual complaints. Denies any dysphagia. She does complain of swelling and pain, redness to her right arm. Denies any open lesions. She does have a redness and swelling to the right arm. No psychosis or anxiety. PHYSICAL EXAMINATION GENERAL: At this time, Ms. Cabello is a 73-year-old female, she is alert and oriented, well-developed, well-nourished female, resting on the stretcher in the emergency room. She does not appear to be in acute distress. VITAL SIGNS: Blood pressure 144/84, heart rate 76, respirations 20, O2 saturation 100%, temperature was 97.8. HEENT: Head is atraumatic, normocephalic. Eyes: EOMs are intact. Sclerae anicteric and not pale. Oral mucosa appeared to be moist. NECK: Supple. LUNGS: Clear to auscultation bilaterally. No wheezes, rales, or rhonchi. CARDIAC: S1, S2. Regular rate and rhythm. No murmurs, rubs, or gallops. ABDOMEN: Soft and nontender. Bowel sounds are present x4. EXTREMITIES: She does have swelling, erythema noted to her right hand and forearm. Mild redness noted in the inner aspect of her right upper arm, it is warm to touch. There is no open areas or drainage. NEUROLOGIC: She is awake, alert, and oriented x3. Speech is clear. Thought process is intact. There are no gross focal deficits. SKIN: She does have redness, erythema, and swelling noted to her right arm and hand. There is no open sores or lesions. LABORATORY DATA AND DIAGNOSTIC STUDIES: WBCs are 11.2, RBCs 3.84, hemoglobin 13.4, hematocrit is 39, platelet count 193. Sodium 128, potassium 4.0, chloride 87, carbon dioxide is 35, anion gap was 6, BUN was 16, creatinine 0.52 , calcium 9.6, glucose is 123, ASTs are 20, ALTs are 13, alkaline phosphatase is 83, C-reactive protein was 114.40. She had an x-ray of her hand, shows no acute fracture. Radiologist reading is currently pending. ASSESSMENT AND PLAN: Ms. Cabello is a 73-year-old female with a past medical history significant for chronic obstructive pulmonary disease, hypothyroidism, anxiety, depression, and hypertension, who presented to the emergency room with complaints of redness and swelling to her right arm and hand after a cat bite a 6 days ago. She will be admitted inpatient for: 1. Cat bite with associated cellulitis. She was given Zosyn 3.375 g in the emergency room. We will continue her on Zosyn per pharmacy protocol. Dr. Carranza from Orthopedics has been consulted and will see the patient in the a.m. I would, recommend she keep her hand elevated on the pillow. We will monitor her for fever. She can have hydrocodone every 6 hours as needed for moderate-to- severe pain. She does have blood cultures that are currently pending. 2. Chronic obstructive pulmonary disease. She should continue on her Symbicort and Combivent as previously prescribed. She can have DuoNeb as needed for shortness of breath. Oxygen at 2 liters as per patient's baseline. 3. Anxiety and depression. She can continue her alprazolam and Zoloft as previously prescribed. 4. Hypertension. I am going to hold her amlodipine, irbesartan, and continue her metoprolol. 5. FEN: She can have a heart healthy, caffeine okay diet. She will be n.p.o. after midnight for possible surgery in the a.m. 6. DVT prophylaxis: I will place her on SCDs. I am going to hold off on chemical DVT prophylaxis as the patient is possibly going to the OR in the a.m. 7. Code status: She is a full code. TIME SPENT: Time spent on this admission was 60 minutes, greater than half that time was spent at the bedside reviewing events leading thus far to her hospitalization, performing physical exam, and reviewing my plan of care. I have discussed this with my attending, Dr. Carmen Last, she is in agreement with my plan. MAR SORENSEN, PRODUCTION UTILITY WORKER [id number]/CPS #: [id number] MENDOZA
[2019-04-25] MEDS: HYDROcodone/ACETAMIN 5-325 MG* 1 TAB PO PRN (22:48)
[2019-04-25] MEDS: ALPRAZolam TAB* 0.5 MG PO SCH (22:49)
[2019-04-25] MEDS: NS 0.9% 1000 ML** 1,000 ML IV SCH (22:51)
[2019-04-25] MEDS: PTO: Albuterol/Ipratropium RESP(NF) MDI (Combivent Respimat) INH SCH (23:54)
[2019-04-25] MEDS: ZOSYN 3.375 GM Q8H per EXTENDED INFUSION IVPB SCH ×2 (23:54)
[2019-04-25] MEDS: Mometasone/Formoter 200/5 MDI INH SCH (23:55)
[2019-04-26] MEDS: Levothyroxine TAB* 50 MCG TAB PO SCH (05:58)
[2019-04-26 06:29] LABS: ABS Eosinophils 0.1 10^3/ul (0-0.6); ABS Lymphocytes 0.6 10^3/ul (1.0-4.8); ABS Monocytes 0.8 10^3/ul (0-0.8); ABS Neutrophils 5.9 10^3/ul (1.5-7.7); Eosinophil % 1.4 %; Hematocrit 33 % (35-47); Hemoglobin 11.4 g/dL (12.0-16.0); Lymphocyte % 7.8 %; Mean Corpuscular HGB Conc 35 g/dL (31-36); Mean Corpuscular Hemoglobin 35 pg (27-31); Mean Corpuscular Volume 101 fL (80-97); Mean Platelet Volume 6.8 fL (7.4-10.4); Nucleated Red Blood Cells % 0.1; Platelet Count 148 10^3/uL (150-450); Red Blood Count 3.23 10^6 /uL (3.70-4.87); Red Cell Distribution Width 13 % (10-15); White Blood Count 7.4 10^3/uL (3.5-10.8)
[2019-04-26 06:57] LABS: BUN/Creatinine Ratio 29.3 (8-20); Calcium 8.6 mg/dL (8.6-10.3); EGFR Non-African American 102.5 (>60); Potassium 3.8 mmol/L (3.5-5.0)
[2019-04-26] MEDS: ZOSYN 3.375 GM Q8H per EXTENDED INFUSION IVPB SCH ×4 (08:07→16:06)
[2019-04-26] MEDS: HYDROcodone/ACETAMIN 5-325 MG* 1 TAB PO PRN ×2 (08:39→21:35)
[2019-04-26] MEDS ORDERED: predniSONE TAB* 50 MG PO SCH (09:00)
[2019-04-26] MEDS ORDERED: Influenza VAC *QUAD* 2019-20* 0.5 ML SYRINGE IM ONE (09:00)
[2019-04-26] MEDS: ALPRAZolam TAB* 0.5 MG PO SCH ×3 (09:24→21:37)
[2019-04-26] MEDS: Metoprolol Succinate XL TAB* 100 MG PO SCH (09:25)
[2019-04-26] MEDS: Sertraline* 50 MG TAB PO SCH (09:26)
[2019-04-26] MEDS: Mometasone/Formoter 200/5 MDI INH SCH ×2 (09:28→19:37)
[2019-04-26] MEDS: PTO: Albuterol/Ipratropium RESP(NF) MDI (Combivent Respimat) INH SCH ×4 (09:34→19:36)
[2019-04-26] MEDS: predniSONE TAB* 5 MG PO SCH (11:33)
--- NOTE | 2019-04-26 11:56 | PN ---
Progress Note - Progress Note Date of Service: 04/26/19 Note: Full note dictated. No evidence of deep space or tendon sheath infection. No abscess noted. Recommend continuing IV antibiotics and will recheck the hand in the morning. NPO at midnight. May eat now.
--- NOTE | 2019-04-26 13:01 | CONS ---
CONSULTATION REPORT: DATE OF CONSULT: 04/26/19 CHIEF COMPLAINT: Right hand pain and swelling. HISTORY OF PRESENT ILLNESS: Trina is 73 years old. I previously did a surgery for her. She came into the ER late last night with a cat bite approximately 6 days old. She had been on Augmentin after it started to get infected. It was getting a bit worse, so she came back into the convenient care, I believe, and was transferred over to the ER and has been admitted by the hospitalist for IV antibiotics. She denies fevers or chills. Just increasing right hand pain and swelling. The cat bite was over the dorsum of the hand near the CMC joint area , the dorsoradial aspect and a little bit more straight midline over the dorsum was where the other fang went in. PAST MEDICAL HISTORY: COPD, home oxygen; hypertension; coronary artery disease ; hypothyroidism; depression; anxiety; Raynaud's; history of oral cancer, status post radiation in 2014. PAST SURGICAL HISTORY: Left hip ORIF, right hip surgery, oral cancer, lymph node resection in 2014, right shoulder surgery. MEDICATIONS: 1. Symbicort. 2. Amlodipine. 3. Zoloft. 4. Metoprolol. 5. Levothyroxine. 6. Irbesartan. 7. Atorvastatin. 8. Combivent. 9. Respimat. 10. DuoNeb as needed. 11. Alprazolam. 12. Calcium. 13. Vitamin D3. 14. Prednisone 5 mg daily. ALLERGIES: ATIVAN, LAMOTRIGINE, MORPHINE, NIFEDIPINE, TOPIRAMATE, LEVAQUIN, BUPROPION, DOXYCYCLINE. FAMILY HISTORY: Mother with history of COPD and hypertension. Father with CHF and hypertension. SOCIAL HISTORY: She quit smoking in 2011. She was a pack a day smoker for 40 years. She does drink 2 alcoholic drinks per day. She lives with her , Eloy. REVIEW OF SYSTEMS: As above. Denies fevers, chills, or systemic systems. PHYSICAL EXAM: General: Awake and alert, no apparent distress. Vital Signs: Temperature 99, T-max since admission is 99, blood pressure 103/45, heart rate 65, respiratory rate 16, satting 100% on 2 L of oxygen. Skin: There is a little bit of excoriation at the 1 puncture site where the fang tore through the skin just a little bit. The skin is red and slightly firm. No areas of fluctuance are noted. No drainage is noted. Musculoskeletal: I cannot palpate any fluctuance. I can take the wrist through a 60 degree motion arc with minimal discomfort. I can flex each of the fingers down with minimal discomfort. There is no erythema on the palmar side of the hand. No tenderness along any of the deep spaces. DIAGNOSTIC STUDIES/LAB DATA: X-ray of the right hand shows no acute osseous changes. There is some osteoarthritis in the first CMC and MCP and the STT joints as well as the interphalangeal joints. She does have chondrocalcinosis in the TFCC. IMPRESSION: Right dorsal hand cellulitis secondary to cat bite 6 days ago. I cannot see any signs of a tendon sheath infection or deep space infection or any abscess. PLAN: I think we should give this a day of IV antibiotics. I will recheck her in the morning. If anything consolidates into an abscess, certainly I would drain it, but for now I think we should continue treatment with IV antibiotics and reexamine the hand again tomorrow. [id number]/CPS #: [id number] MENDOZA
--- NOTE | 2019-04-26 15:35 | PN ---
Subjective Date of Service: 04/26/19 Interval History: Patient seen sitting up in chair with right arm elevated, talking with family. States the swelling in her hand is down from yesterday and the redness is beginning to recede, though remains tender to touch. Denies any fever, chills, shortness of breath, chest pain, abdominal pain, nausea or vomiting. Ice pack in place to right hand. Family History: Unchanged from Admission Social History: Unchanged from Admission Past Medical History: Unchanged from Admission Objective Active Medications: Acetaminophen (Tylenol Tab*) 650 mg PO Q4H PRN PRN Reason: MILD PAIN or TEMP > 100.4 Hydrocodone Bitart/Acetaminophen ([place] 5-325 Tab*) 1 tab PO Q6H PRN PRN Reason: PAIN - MODERATE Last Admin: 04/26/19 08:39 Dose: 1 tab Albuterol (Ventolin 2.5 Mg/3 Ml Neb.Beulah*) 2.5 mg INH Q4H PRN PRN Reason: SOB/WHEEZING Albuterol/Ipratropium (Combivent Respimat(Nf)) 2 puff INH QID [facility]; Protocol Last Admin: 04/26/19 09:34 Dose: Not Given Alprazolam (Xanax Tab*) 0.5 mg PO TID [facility] Last Admin: 04/26/19 09:24 Dose: 0.5 mg Atorvastatin Calcium (Lipitor*) 10 mg PO 1700 QI Sodium Chloride (Ns 0.9% 1000 Ml) 1,000 mls @ 50 mls/hr IV PER RATE [facility] Last Admin: 04/25/19 22:51 Dose: 50 mls/hr Piperacillin Sod/Tazobactam (Sod 3.375 gm/ Sodium Chloride) 100 mls @ 25 mls/ hr IVPB Q8H [facility] Last Admin: 04/26/19 08:07 Dose: 25 mls/hr Levothyroxine Sodium (Synthroid Tab*) 50 mcg PO DAILY@0600 [facility] Last Admin: 04/26/19 05:58 Dose: 50 mcg Metoprolol Succinate (Toprol Xl Tab*) 100 mg PO DAILY [facility] Last Admin: 04/26/19 09:25 Dose: 100 mg Mometasone Furoate/Formoterol Fumar (Dulera 200/5 Mdi*) 2 puff INH BID [facility]; Protocol Last Admin: 04/26/19 09:28 Dose: 2 inh Pharmacy Consult (Zosyn Per Pharmacy*) 1 note FOLLOW UP .ZOSYN PER PHARMACY [facility] Prednisone (Deltasone Tab*) 5 mg PO DAILY [facility] Last Admin: 04/26/19 11:33 Dose: 5 mg Sertraline HCl (Zoloft*) 50 mg PO QAM [facility] Last Admin: 04/26/19 09:26 Dose: 50 mg Vital Signs - 8 hr 04/26/19 04/26/19 04/26/19 08:00 08:32 08:39 Temperature 99.0 F Pulse Rate 65 Respiratory 16 16 20 Rate Blood Pressure 103/45 (mmHg) O2 Sat by Pulse 100 Oximetry 04/26/19 04/26/19 04/26/19 09:24 11:32 11:54 Temperature 97.8 F Pulse Rate 60 Respiratory 16 16 16 Rate Blood Pressure 92/52 (mmHg) O2 Sat by Pulse 100 Oximetry 04/26/19 12:02 Temperature Pulse Rate Respiratory 16 Rate Blood Pressure (mmHg) O2 Sat by Pulse Oximetry Oxygen Devices in Use Now: Nasal Cannula Appearance: Well groomed female sitting up in chair, no acute distress noted. Eyes: No Scleral Icterus, PERRLA Ears/Nose/Mouth/Throat: NL Teeth, Lips, Gums, Clear Oropharnyx, Mucous Membranes Moist Neck: NL Appearance and Movements; NL JVP, Trachea Midline Respiratory: Symmetrical Chest Expansion and Respiratory Effort, Clear to Auscultation Cardiovascular: NL Sounds; No Murmurs; No JVD, RRR, No Edema Abdominal: NL Sounds; No Tenderness; No Distention Lymphatic: No Cervical Adenopathy Extremities: No Clubbing, Cyanosis, - - Edema and erythema to right forearm/ hand. Skin: No Nodules or Sclerosis, - - Redness receding to just inside previously marked line on forearm. Erythema to fingers receding from DIP to PIP joints. Neurological: Alert and Oriented x 3, - - Decreased sensation to right hand Lines/Tubes/Other Access: Clean, Dry and Intact Peripheral IV Result Diagrams: 04/26/19 06:17 04/26/19 06:17 Assess/Plan/Problems-Billing Assessment: - Patient Problems (1) Cat bite of hand Current Visit: Yes Status: Acute Code(s): S61.459A - OPEN BITE OF UNSPECIFIED HAND, INITIAL ENCOUNTER; W55.01XA - BITTEN BY CAT, INITIAL ENCOUNTER SNOMED Code(s): 819240874 Comment: Cat bite with cellulitis: Given zosyn in emergency room and continued Q8H per pharmacy dosing. Keep arm elevated, apply ice packs as needed. Dr. Carranza consulted, surgery not indicated at this time due to lack of induration and clinical improvement. Dillon will recheck hand tomorrow. (2) Anxiety and depression Current Visit: No Status: Acute Code(s): F41.9 - ANXIETY DISORDER, UNSPECIFIED; F32.9 - MAJOR DEPRESSIVE DISORDER, SINGLE EPISODE, UNSPECIFIED SNOMED Code(s): 175379425 Comment: -Continue sertraline, alprazolam (3) COPD (chronic obstructive pulmonary disease) Current Visit: No Status: Acute Code(s): J44.9 - CHRONIC OBSTRUCTIVE PULMONARY DISEASE, UNSPECIFIED SNOMED Code(s): 63642554 Comment: - No signs of exacerbation - Continue combivent, symbicort, and ventolin (4) HTN (hypertension) Current Visit: No Status: Acute Code(s): I10 - ESSENTIAL (PRIMARY) HYPERTENSION SNOMED Code(s): 23635712 Comment: Bp well controlled, continue metoprolol (5) Hypothyroidism Current Visit: No Status: Acute Code(s): E03.9 - HYPOTHYROIDISM, UNSPECIFIED SNOMED Code(s): 70276435 Comment: - Continue Levothyroxine. Status and Disposition: Disposition: Admitted inpatient Condition: Fair Counseling and/or Coordination of Care Minutes: 60 minutes Attending: Mark Anthony Borjas
[2019-04-26] MEDS: Atorvastatin* 10 MG TAB PO SCH (16:43)
[2019-04-26] MEDS: NS 0.9% 1000 ML** 1,000 ML IV SCH (16:50)
[2019-04-27] MEDS: ZOSYN 3.375 GM Q8H per EXTENDED INFUSION IVPB SCH ×6 (00:38→15:53)
[2019-04-27] MEDS: Levothyroxine TAB* 50 MCG TAB PO SCH (05:13)
[2019-04-27] MEDS: PTO: Albuterol/Ipratropium RESP(NF) MDI (Combivent Respimat) INH SCH ×6 (06:17→19:49)
[2019-04-27] MEDS: HYDROcodone/ACETAMIN 5-325 MG* 1 TAB PO PRN ×2 (07:18→18:24)
--- NOTE | 2019-04-27 08:02 | PN ---
Progress Note - Progress Note Date of Service: 04/27/19 Note: Condition largely unchanged. Pain and discomfort pretty stable from where it was yesterday. VSS, afebrile Erythema unchanged No fluid collections, no evidence of tendon or deep space infection, good passive and gentle active motion in fingers and wrist with just mild discomfort. Blood cultures without growth. A/P: R hand and forearm cellulitis secondary to cat bite without abscess or deep space/tendon sheath infection. No evidence of septic joint. No surgery to be done at the current time. Appropriate IV antibiotic therapy per the internists. I will recheck again tomorrow morning.
[2019-04-27] MEDS: ALPRAZolam TAB* 0.5 MG PO SCH ×3 (08:31→21:24)
[2019-04-27] MEDS: predniSONE TAB* 5 MG PO SCH (08:32)
[2019-04-27] MEDS: Metoprolol Succinate XL TAB* 100 MG PO SCH (08:32)
[2019-04-27] MEDS: Sertraline* 50 MG TAB PO SCH (08:32)
[2019-04-27] MEDS: Mometasone/Formoter 200/5 MDI INH SCH ×2 (08:34→19:44)
[2019-04-27] MEDS ORDERED: Docusate CAP* 100 MG PO PRN (08:55)
[2019-04-27] MEDS ORDERED: Senna TAB 8.6 mg* TAB PO PRN (08:55)
[2019-04-27] MEDS ORDERED: Polyethylene Glycol 3350* 17 GM PACKET PO PRN (08:56)
[2019-04-27] MEDS ORDERED: Vancomycin per Pharmacy* NOTE FOLLOW UP SCH (09:00)
[2019-04-27 09:13] LABS: ABS Eosinophils 0.1 10^3/ul (0-0.6); ABS Lymphocytes 0.5 10^3/ul (1.0-4.8); ABS Monocytes 0.8 10^3/ul (0-0.8); ABS Neutrophils 6.2 10^3/ul (1.5-7.7); Eosinophil % 1.2 %; Hematocrit 35 % (35-47); Hemoglobin 11.9 g/dL (12.0-16.0); Lymphocyte % 6.8 %; Mean Corpuscular HGB Conc 34 g/dL (31-36); Mean Corpuscular Hemoglobin 35 pg (27-31); Mean Corpuscular Volume 101 fL (80-97); Mean Platelet Volume 6.7 fL (7.4-10.4); Platelet Count 184 10^3/uL (150-450); Red Blood Count 3.44 10^6 /uL (3.70-4.87); Red Cell Distribution Width 13 % (10-15); White Blood Count 7.6 10^3/uL (3.5-10.8)
[2019-04-27] MEDS ORDERED: Vancomycin(*) 1,000 MG in NS 0.9% 250 ML* 250 ML IVPB ONE (09:30)
--- NOTE | 2019-04-27 09:34 | PN ---
Subjective Date of Service: 04/27/19 Interval History: Patient seen sitting up in bed. Able to move fingers of right hand better than yesterday though hand is more swollen, red and painful that yesterday. Hand is weeping scant amounts of clear fluid in various places. Extremity elevated on pillow. Denies fever, chills, headaches, chest pain, shortness of breath, abdominal pain, nausea/vomiting, or issues moving bowel or bladder. Family History: Unchanged from Admission Social History: Unchanged from Admission Past Medical History: Unchanged from Admission Objective Active Medications: Acetaminophen (Tylenol Tab*) 650 mg PO Q4H PRN PRN Reason: MILD PAIN or TEMP > 100.4 Hydrocodone Bitart/Acetaminophen ([place] 5-325 Tab*) 1 tab PO Q6H PRN PRN Reason: PAIN - MODERATE Last Admin: 04/27/19 07:18 Dose: 1 tab Albuterol (Ventolin 2.5 Mg/3 Ml Neb.Beulah*) 2.5 mg INH Q4H PRN PRN Reason: SOB/WHEEZING Albuterol/Ipratropium (Combivent Respimat(Nf)) 2 puff INH QID [facility]; Protocol Last Admin: 04/27/19 08:31 Dose: Not Given Alprazolam (Xanax Tab*) 0.5 mg PO TID [facility] Last Admin: 04/27/19 08:31 Dose: 0.5 mg Atorvastatin Calcium (Lipitor*) 10 mg PO 1700 [facility] Last Admin: 04/26/19 16:43 Dose: 10 mg Docusate Sodium (Colace Cap*) 100 mg PO BID PRN PRN Reason: CONSTIPATION Sodium Chloride (Ns 0.9% 1000 Ml) 1,000 mls @ 50 mls/hr IV PER RATE [facility] Last Admin: 04/26/19 16:50 Dose: 50 mls/hr Piperacillin Sod/Tazobactam (Sod 3.375 gm/ Sodium Chloride) 100 mls @ 25 mls/ hr IVPB Q8H [facility] Last Admin: 04/27/19 08:11 Dose: 25 mls/hr Vancomycin HCl 1,000 mg/ (Sodium Chloride) 250 mls @ 166.667 mls/hr IVPB ONCE [facility]; Protocol Stop: 04/27/19 23:59 Levothyroxine Sodium (Synthroid Tab*) 50 mcg PO DAILY@0600 [facility] Last Admin: 04/27/19 05:13 Dose: 50 mcg Metoprolol Succinate (Toprol Xl Tab*) 100 mg PO DAILY [facility] Last Admin: 04/27/19 08:32 Dose: 100 mg Mometasone Furoate/Formoterol Fumar (Dulera 200/5 Mdi*) 2 puff INH BID [facility]; Protocol Last Admin: 04/27/19 08:34 Dose: 2 inh Pharmacy Consult (Zosyn Per Pharmacy*) 1 note FOLLOW UP .ZOSYN PER PHARMACY [facility] Pharmacy Consult (Vancomycin Per Pharmacy*) 1 note FOLLOW UP .VANC PER PHARMACY [facility]; Protocol Polyethylene Glycol/Electrolytes (Miralax*) 17 gm PO DAILY PRN PRN Reason: CONSTIPATION Prednisone (Deltasone Tab*) 5 mg PO DAILY [facility] Last Admin: 04/27/19 08:32 Dose: 5 mg Senna (Senokot 8.6 Mg Tab*) 1 tab PO BEDTIME PRN PRN Reason: CONSTIPATION Sertraline HCl (Zoloft*) 50 mg PO QAM [facility] Last Admin: 04/27/19 08:32 Dose: 50 mg Vital Signs - 8 hr 04/27/19 04/27/19 04/27/19 05:03 07:18 07:38 Temperature 97.9 F Pulse Rate 70 Respiratory 16 16 16 Rate Blood Pressure 139/68 (mmHg) O2 Sat by Pulse 98 Oximetry 04/27/19 04/27/19 08:01 08:31 Temperature 97.9 F Pulse Rate 69 Respiratory 16 16 Rate Blood Pressure 119/63 (mmHg) O2 Sat by Pulse 96 Oximetry Oxygen Devices in Use Now: Nasal Cannula Appearance: Well groomed female sittin gup in bed, no acute distress noted. Eyes: No Scleral Icterus, PERRLA Ears/Nose/Mouth/Throat: NL Teeth, Lips, Gums, Clear Oropharnyx, Mucous Membranes Moist Neck: NL Appearance and Movements; NL JVP, Trachea Midline Respiratory: Symmetrical Chest Expansion and Respiratory Effort, - - Right lower base more diminished than left, otherwise clear. Cardiovascular: NL Sounds; No Murmurs; No JVD, RRR, No Edema Abdominal: NL Sounds; No Tenderness; No Distention Lymphatic: No Cervical Adenopathy Extremities: No Clubbing, Cyanosis, - - Edema to right hand Skin: - - Erythema and edema to right forearm mildly improved from yesterday. Erythema, edema and warmth worsening to top of hand, extended to pip joints and across surface of MP joints on palm of hand. No purulent drainage noted. Scant weeping to various areas on hand. Neurological: Alert and Oriented x 3, - - Decreased sensation to right hand Lines/Tubes/Other Access: Clean, Dry and Intact Peripheral IV Result Diagrams: 04/27/19 08:52 04/26/19 06:17 Microbiology and Other Data: Microbiology 04/25/19 19:42 Aerobic Blood Culture - Preliminary Blood Venous No Growth Day 1 Anaerobic Blood Culture - Preliminary No Growth Day 1 04/25/19 19:09 Aerobic Blood Culture - Preliminary Blood Venous No Growth Day 1 Anaerobic Blood Culture - Preliminary No Growth Day 1 Assess/Plan/Problems-Billing Assessment: - Patient Problems (1) Cat bite of hand Current Visit: Yes Status: Acute Code(s): S61.459A - OPEN BITE OF UNSPECIFIED HAND, INITIAL ENCOUNTER; W55.01XA - BITTEN BY CAT, INITIAL ENCOUNTER SNOMED Code(s): 704463218 Comment: Cat bite with cellulitis: Given zosyn in emergency room and continued Q8H per pharmacy dosing. Keep arm elevated, apply ice packs as needed. Dr. Carranza consulted, surgery not indicated at this time due to lack of induration and clinical improvement. -Due to worsening of edema, erythema and pain in the right hand, adding vancomycin for possible MRSA coverage. (2) Anxiety and depression Current Visit: No Status: Acute Code(s): F41.9 - ANXIETY DISORDER, UNSPECIFIED; F32.9 - MAJOR DEPRESSIVE DISORDER, SINGLE EPISODE, UNSPECIFIED SNOMED Code(s): 104470872 Comment: -Continue sertraline, alprazolam (3) COPD (chronic obstructive pulmonary disease) Current Visit: No Status: Acute Code(s): J44.9 - CHRONIC OBSTRUCTIVE PULMONARY DISEASE, UNSPECIFIED SNOMED Code(s): 52147017 Comment: - No signs of exacerbation - Continue combivent, symbicort, and ventolin (4) HTN (hypertension) Current Visit: No Status: Acute Code(s): I10 - ESSENTIAL (PRIMARY) HYPERTENSION SNOMED Code(s): 63615130 Comment: Bp well controlled, continue metoprolol (5) Hypothyroidism Current Visit: No Status: Acute Code(s): E03.9 - HYPOTHYROIDISM, UNSPECIFIED SNOMED Code(s): 67501714 Comment: - Continue Levothyroxine. Status and Disposition: Disposition: Admitted inpatient Condition: Fair Counseling and/or Coordination of Care Minutes: Time spent on patient 40 minutes Attending: Mark Anthony Bojras
[2019-04-27] MEDS: NS 0.9% 1000 ML** 1,000 ML IV SCH (12:19)
[2019-04-27] MEDS: Atorvastatin* 10 MG TAB PO SCH (18:16)
[2019-04-27] MEDS: ZOSYN 3.375 GM Q6H IVPB SCH ×2 (23:24)
[2019-04-28] MEDS: Vancomycin(*) 500 MG in NS 0.9% 250 ML* 250 ML IVPB SCH ×2 (00:28→12:35)
[2019-04-28] MEDS: ZOSYN 3.375 GM Q6H IVPB SCH ×8 (05:51→23:42)
[2019-04-28] MEDS: Levothyroxine TAB* 50 MCG TAB PO SCH (05:56)
[2019-04-28] MEDS: PTO: Albuterol/Ipratropium RESP(NF) MDI (Combivent Respimat) INH SCH ×4 (08:11→21:42)
[2019-04-28] MEDS: Mometasone/Formoter 200/5 MDI INH SCH ×2 (08:12→21:42)
[2019-04-28] MEDS: Metoprolol Succinate XL TAB* 100 MG PO SCH (08:37)
[2019-04-28] MEDS: predniSONE TAB* 5 MG PO SCH (08:38)
[2019-04-28] MEDS: Sertraline* 50 MG TAB PO SCH (08:38)
[2019-04-28] MEDS: ALPRAZolam TAB* 0.5 MG PO SCH ×3 (08:38→20:51)
[2019-04-28] MEDS: HYDROcodone/ACETAMIN 5-325 MG* 1 TAB PO PRN ×2 (09:05→19:17)
[2019-04-28] MEDS: NS 0.9% 1000 ML** 1,000 ML IV SCH (11:55)
--- NOTE | 2019-04-28 14:42 | PN ---
Subjective Date of Service: 04/28/19 Interval History: Reports that pain in her hand has improved, continues to c/o pain to the back of the hand. redness continues to improve. denies fever or chills. Denies chest or shortness of breath. Denies n/v/d or abd pain. Family History: Unchanged from Admission Social History: Unchanged from Admission Past Medical History: Unchanged from Admission Objective Active Medications: Acetaminophen (Tylenol Tab*) 650 mg PO Q4H PRN PRN Reason: MILD PAIN or TEMP > 100.4 Hydrocodone Bitart/Acetaminophen ([place] 5-325 Tab*) 1 tab PO Q6H PRN PRN Reason: PAIN - MODERATE Last Admin: 04/28/19 09:05 Dose: 1 tab Albuterol (Ventolin 2.5 Mg/3 Ml Neb.Beulah*) 2.5 mg INH Q4H PRN PRN Reason: SOB/WHEEZING Last Admin: 04/27/19 18:31 Dose: 2.5 mg Albuterol/Ipratropium (Combivent Respimat(Nf)) 2 puff INH QID [facility]; Protocol Last Admin: 04/28/19 13:32 Dose: 2 puff Alprazolam (Xanax Tab*) 0.5 mg PO TID [facility] Last Admin: 04/28/19 13:38 Dose: 0.5 mg Atorvastatin Calcium (Lipitor*) 10 mg PO 1700 [facility] Last Admin: 04/27/19 18:16 Dose: 10 mg Docusate Sodium (Colace Cap*) 100 mg PO BID PRN PRN Reason: CONSTIPATION Sodium Chloride (Ns 0.9% 1000 Ml) 1,000 mls @ 50 mls/hr IV PER RATE [facility] Last Admin: 04/28/19 11:55 Dose: 50 mls/hr Vancomycin HCl 500 mg/ Sodium (Chloride) 250 mls @ 166.667 mls/hr IVPB Q12H [facility] Last Admin: 04/28/19 12:35 Dose: 166.667 mls/hr Piperacillin Sod/Tazobactam (Sod 3.375 gm/ Sodium Chloride) 100 mls @ 200 mls/ hr IVPB Q6H [facility] Last Admin: 04/28/19 11:53 Dose: 200 mls/hr Levothyroxine Sodium (Synthroid Tab*) 50 mcg PO DAILY@0600 [facility] Last Admin: 04/28/19 05:56 Dose: 50 mcg Metoprolol Succinate (Toprol Xl Tab*) 100 mg PO DAILY [facility] Last Admin: 04/28/19 08:37 Dose: 100 mg Mometasone Furoate/Formoterol Fumar (Dulera 200/5 Mdi*) 2 puff INH BID [facility]; Protocol Last Admin: 04/28/19 08:12 Dose: 2 puff Pharmacy Consult (Zosyn Per Pharmacy*) 1 note FOLLOW UP .ZOSYN PER [facility]Y [facility] Pharmacy Consult (Vancomycin Per Pharmacy*) 1 note FOLLOW UP .VANC PER [facility]Y [facility]; Protocol Pharmacy Profile Note (Vancomycin Trough Check) 1 note FOLLOW UP ONCE ONE Stop: 04/29/19 12:01 Polyethylene Glycol/Electrolytes (Miralax*) 17 gm PO DAILY PRN PRN Reason: CONSTIPATION Prednisone (Deltasone Tab*) 5 mg PO DAILY [facility] Last Admin: 04/28/19 08:38 Dose: 5 mg Senna (Senokot 8.6 Mg Tab*) 1 tab PO BEDTIME PRN PRN Reason: CONSTIPATION Sertraline HCl (Zoloft*) 50 mg PO QAM [facility] Last Admin: 04/28/19 08:38 Dose: 50 mg Vital Signs - 8 hr 04/28/19 04/28/19 04/28/19 07:29 08:00 08:14 Temperature 98.3 F Pulse Rate 72 74 Respiratory 17 18 18 Rate Blood Pressure 153/71 (mmHg) O2 Sat by Pulse 100 98 Oximetry 04/28/19 04/28/19 04/28/19 08:38 09:05 10:48 Temperature Pulse Rate Respiratory 20 18 22 Rate Blood Pressure (mmHg) O2 Sat by Pulse Oximetry 04/28/19 04/28/19 04/28/19 11:01 11:16 13:32 Temperature 97.7 F Pulse Rate 71 72 Respiratory 22 16 16 Rate Blood Pressure 112/58 (mmHg) O2 Sat by Pulse 100 98 Oximetry 04/28/19 13:38 Temperature Pulse Rate Respiratory 18 Rate Blood Pressure (mmHg) O2 Sat by Pulse Oximetry Oxygen Devices in Use Now: Nasal Cannula Eyes: No Scleral Icterus Ears/Nose/Mouth/Throat: Clear Oropharnyx, Mucous Membranes Moist Neck: NL Appearance and Movements; NL JVP, Trachea Midline Respiratory: Symmetrical Chest Expansion and Respiratory Effort, Clear to Auscultation Cardiovascular: NL Sounds; No Murmurs; No JVD, No Edema Abdominal: NL Sounds; No Tenderness; No Distention Extremities: No Clubbing, Cyanosis, - - right hand with redness and mild swelling, improving Skin: - - redness and swelling noted to right hand Neurological: Alert and Oriented x 3 Nutrition: Taking PO's Result Diagrams: 04/27/19 08:52 04/26/19 06:17 Microbiology and Other Data: Microbiology 04/25/19 19:42 Aerobic Blood Culture - Preliminary Blood Venous No Growth Day 1 Anaerobic Blood Culture - Preliminary No Growth Day 1 04/25/19 19:09 Aerobic Blood Culture - Preliminary Blood Venous No Growth Day 1 Anaerobic Blood Culture - Preliminary No Growth Day 1 Assess/Plan/Problems-Billing Assessment: - Patient Problems (1) Cat bite of hand Current Visit: Yes Status: Acute Code(s): S61.459A - OPEN BITE OF UNSPECIFIED HAND, INITIAL ENCOUNTER; W55.01XA - BITTEN BY CAT, INITIAL ENCOUNTER SNOMED Code(s): 382084983 Comment: Cat bite with cellulitis: Given zosyn in emergency room and continued Q8H per pharmacy dosing. Keep arm elevated, apply ice packs as needed. -Dr. Carranza consulted, surgery not indicated at this time due to lack of induration and clinical improvement. -yesterday with worsening of edema, erythema and pain in the right hand, added vancomycin for possible MRSA coverage. Pain and redness and swelling improved today - will moniotr overnight and likely discharge in the AM (2) Anxiety and depression Current Visit: No Status: Acute Code(s): F41.9 - ANXIETY DISORDER, UNSPECIFIED; F32.9 - MAJOR DEPRESSIVE DISORDER, SINGLE EPISODE, UNSPECIFIED SNOMED Code(s): 070951025 Comment: -Continue sertraline, alprazolam (3) COPD (chronic obstructive pulmonary disease) Current Visit: No Status: Acute Code(s): J44.9 - CHRONIC OBSTRUCTIVE PULMONARY DISEASE, UNSPECIFIED SNOMED Code(s): 64424475 Comment: - No signs of exacerbation - Continue combivent, symbicort, and ventolin (4) Hypothyroidism Current Visit: No Status: Acute Code(s): E03.9 - HYPOTHYROIDISM, UNSPECIFIED SNOMED Code(s): 91280453 Comment: - Continue Levothyroxine. (5) DVT prophylaxis Current Visit: No Status: Acute Code(s): GFK2829 - SNOMED Code(s): 524970931 Comment: - Lovenox (6) Full code status Current Visit: No Status: Acute Code(s): Z78.9 - OTHER SPECIFIED HEALTH STATUS SNOMED Code(s): 078048942 Comment: Status and Disposition: Disposition: Admitted inpatient Condition: Fair
[2019-04-28] MEDS: Atorvastatin* 10 MG TAB PO SCH (17:04)
--- NOTE | 2019-04-28 17:13 | PN ---
Progress Note - Progress Note Date of Service: 04/28/19 SOAP: Subjective: []Pt seen at bedside. She is feeling well without fever or chills. Reports right hand pain and ROM have drastically improved throughout the day. No growth of blood cultures, afebrile. Objective: []Gen: NAD, appears comfortable RUE: erythema of the hand and distal forearm, has recede from demarcated line of the proximal forearm, dorsum of hand and digits remain swollen. There is no fluctuance and light palpation is not painful. Good passive and active ROM of wrist without pain. Able to full actively extend digits and can make a loose fist with fingernails just touching the palm with mild pain. Assessment: [] R hand and forearm cellulitis secondary to cat bite without abscess or deep space/tendon sheath infection. No evidence of septic joint. Plan: []No surgery to be done at the current time. Appropriate IV antibiotic therapy per the internists. Anticipate she can DC home tomorrow as long as exam continues to improve Vital Signs Temp 98.0 F 04/28/19 15:22 Pulse 97 04/28/19 15:22 Resp 22 04/28/19 15:57 BP 114/67 04/28/19 15:22 Pulse Ox 97 04/28/19 15:22 Intake & Output 04/27/19 04/28/19 04/28/19 18:59 06:59 18:59 Intake Total 1652 1490 2386 Output Total 600 3000 1200 Balance 1052 -1510 1186 Intake: IV Fluids 407 970 ABX - ZOSYN 207 NS (0.9%) 200 970 IVPB 460 106 ABX - VANCOMYCIN 255 ABX - ZOSYN 205 106 Oral 1245 1030 1310 Output: Urine 600 3000 1200 Other: Date of Last Bowel 04/28/2019 Movement # Bowel Movements 1 1 2 Estimated Stool Amount Medium Medium Large Laboratory Last Values WBC 7.6 10^3/uL (3.5-10.8) 04/27/19 08:52 RBC 3.44 10^6 /uL (3.70-4.87) L 04/27/19 08:52 Hgb 11.9 g/dL (12.0-16.0) L 04/27/19 08:52 Hct 35 % (35-47) 04/27/19 08:52 MCV 101 fL (80-97) H 04/27/19 08:52 MCH 35 pg (27-31) H 04/27/19 08:52 MCHC 34 g/dL (31-36) 04/27/19 08:52 RDW 13 % (10-15) 04/27/19 08:52 Plt Count 184 10^3/uL (150-450) 04/27/19 08:52 MPV 6.7 fL (7.4-10.4) L 04/27/19 08:52 Neut % (Auto) 81.7 % 04/27/19 08:52 Lymph % (Auto) 6.8 % 04/27/19 08:52 [place] % (Auto) 10.0 % 04/27/19 08:52 Eos % (Auto) 1.2 % 04/27/19 08:52 Baso % (Auto) 0.3 % 04/27/19 08:52 Absolute Neuts (auto) 6.2 10^3/ul (1.5-7.7) 04/27/19 08:52 Absolute Lymphs (auto) 0.5 10^3/ul (1.0-4.8) L 04/27/19 08:52 Absolute Monos (auto) 0.8 10^3/ul (0-0.8) 04/27/19 08:52 Absolute Eos (auto) 0.1 10^3/ul (0-0.6) 04/27/19 08:52 Absolute Basos (auto) 0.0 10^3/ul (0-0.2) 04/27/19 08:52 Absolute Nucleated RBC 0.0 10^3/ul 04/27/19 08:52 Nucleated RBC % 0.0 04/27/19 08:52 Sodium 132 mmol/L (135-145) L 04/26/19 06:17 Potassium 3.8 mmol/L (3.5-5.0) 04/26/19 06:17 Chloride 94 mmol/L (101-111) L 04/26/19 06:17 Carbon Dioxide 32 mmol/L (22-32) 04/26/19 06:17 Anion Gap 6 mmol/L (2-11) 04/26/19 06:17 BUN 17 mg/dL (6-24) 04/26/19 06:17 Creatinine 0.58 mg/dL (0.51-0.95) 04/26/19 06:17 Est GFR ( Amer) 124.0 (>60) 04/26/19 06:17 Est GFR (Non-Af Amer) 102.5 (>60) 04/26/19 06:17 BUN/Creatinine Ratio 29.3 (8-20) H 04/26/19 06:17 Glucose 95 mg/dL (70-100) 04/26/19 06:17 Calcium 8.6 mg/dL (8.6-10.3) 04/26/19 06:17 Total Bilirubin 0.50 mg/dL (0.2-1.0) 04/25/19 18:23 AST 20 U/L (13-39) 04/25/19 18:23 ALT 13 U/L (7-52) 04/25/19 18:23 Alkaline Phosphatase 83 U/L (34-104) 04/25/19 18:23 C-Reactive Protein 50.08 mg/L (<8.01) H 04/27/19 08:52 Total Protein 7.5 g/dL (6.4-8.9) 04/25/19 18:23 Albumin 4.5 g/dL (3.2-5.2) 04/25/19 18:23 Globulin 3.0 g/dL (2-4) 04/25/19 18:23 Albumin/Globulin Ratio 1.5 (1-3) 04/25/19 18:23
[2019-04-29] MEDS: Vancomycin(*) 500 MG in NS 0.9% 250 ML* 250 ML IVPB SCH (00:48)
[2019-04-29] MEDS: ZOSYN 3.375 GM Q6H IVPB SCH ×2 (05:33)
[2019-04-29] MEDS: Levothyroxine TAB* 50 MCG TAB PO SCH (05:58)
[2019-04-29 06:44] LABS: EGFR African American 134.7 (>60); EGFR Non-African American 111.3 (>60)
[2019-04-29 07:45] VITALS: BP 155/81
[2019-04-29] MEDS: PTO: Albuterol/Ipratropium RESP(NF) MDI (Combivent Respimat) INH SCH (07:53)
[2019-04-29] MEDS: Mometasone/Formoter 200/5 MDI INH SCH (09:10)
[2019-04-29] MEDS: Metoprolol Succinate XL TAB* 100 MG PO SCH (09:17)
[2019-04-29] MEDS: predniSONE TAB* 5 MG PO SCH (09:17)
[2019-04-29] MEDS: ALPRAZolam TAB* 0.5 MG PO SCH (09:17)
[2019-04-29] MEDS: Sertraline* 50 MG TAB PO SCH (09:17)
--- NOTE | 2019-04-29 09:23 | PN ---
Progress Note - Progress Note Date of Service: 04/29/19 SOAP: Subjective: []Pt seen at bedside. She feels well. She is afebrile and no growth on blood cultures. Denies fever, chills, CP, SOB, dizziness, lightheadedness, nausea. Objective: [] Gen: NAD, appears comfortable RUE: erythema of the hand and distal forearm decreased in severity from yesterday, limited to hand as far distal as PIPs and distal forearm, dorsum of hand and digits remain swollen though decreased from yesterday. There is no fluctuance and light palpation is not painful. Mildly tender to palpation of the dorsum of the hand with more aggressive palpation. Full passive and active ROM of wrist without pain. Able to full actively extend digits and can make a tight fist with fingernails into the palm without pain. Swelling present on ulnar side of elbow, nontender, no erythema, nonfluctuant and full AROM elbow without pain. Assessment: [] R hand and forearm cellulitis secondary to cat bite without abscess or deep space/tendon sheath infection. No evidence of septic joint. Plan: []From ortho standpoint ready to DC to home on PO abx If worsening redness, pain, fever or decreased ROM needs to call ortho or return to ER FU Dr Carranza outpatient in 1 week Vital Signs Temp 98.7 F 04/29/19 07:44 Pulse 79 04/29/19 07:44 Resp 20 04/29/19 09:17 BP 155/81 04/29/19 07:44 Pulse Ox 100 04/29/19 07:44 Intake & Output 04/28/19 04/29/19 04/29/19 18:59 06:59 18:59 Intake Total 2386 1300 Output Total 1200 1200 Balance 1186 100 Intake: IV Fluids 970 NS (0.9%) 970 IVPB 106 ABX - ZOSYN 106 Oral 1310 1300 Output: Urine 1200 1200 Other: Estimated Void Medium # Bowel Movements 2 1 Estimated Stool Amount Large Medium # Voids 1 Laboratory Last Values WBC 7.6 10^3/uL (3.5-10.8) 04/27/19 08:52 RBC 3.44 10^6 /uL (3.70-4.87) L 04/27/19 08:52 Hgb 11.9 g/dL (12.0-16.0) L 04/27/19 08:52 Hct 35 % (35-47) 04/27/19 08:52 MCV 101 fL (80-97) H 04/27/19 08:52 MCH 35 pg (27-31) H 04/27/19 08:52 MCHC 34 g/dL (31-36) 04/27/19 08:52 RDW 13 % (10-15) 04/27/19 08:52 Plt Count 184 10^3/uL (150-450) 04/27/19 08:52 MPV 6.7 fL (7.4-10.4) L 04/27/19 08:52 Neut % (Auto) 81.7 % 04/27/19 08:52 Lymph % (Auto) 6.8 % 04/27/19 08:52 [place] % (Auto) 10.0 % 04/27/19 08:52 Eos % (Auto) 1.2 % 04/27/19 08:52 Baso % (Auto) 0.3 % 04/27/19 08:52 Absolute Neuts (auto) 6.2 10^3/ul (1.5-7.7) 04/27/19 08:52 Absolute Lymphs (auto) 0.5 10^3/ul (1.0-4.8) L 04/27/19 08:52 Absolute Monos (auto) 0.8 10^3/ul (0-0.8) 04/27/19 08:52 Absolute Eos (auto) 0.1 10^3/ul (0-0.6) 04/27/19 08:52 Absolute Basos (auto) 0.0 10^3/ul (0-0.2) 04/27/19 08:52 Absolute Nucleated RBC 0.0 10^3/ul 04/27/19 08:52 Nucleated RBC % 0.0 04/27/19 08:52 Sodium 132 mmol/L (135-145) L 04/26/19 06:17 Potassium 3.8 mmol/L (3.5-5.0) 04/26/19 06:17 Chloride 94 mmol/L (101-111) L 04/26/19 06:17 Carbon Dioxide 32 mmol/L (22-32) 04/26/19 06:17 Anion Gap 6 mmol/L (2-11) 04/26/19 06:17 BUN 4 mg/dL (6-24) L 04/29/19 05:48 Creatinine 0.54 mg/dL (0.51-0.95) 04/29/19 05:48 Est GFR ( Amer) 134.7 (>60) 04/29/19 05:48 Est GFR (Non-Af Amer) 111.3 (>60) 04/29/19 05:48 BUN/Creatinine Ratio 29.3 (8-20) H 04/26/19 06:17 Glucose 95 mg/dL (70-100) 04/26/19 06:17 Calcium 8.6 mg/dL (8.6-10.3) 04/26/19 06:17 Total Bilirubin 0.50 mg/dL (0.2-1.0) 04/25/19 18:23 AST 20 U/L (13-39) 04/25/19 18:23 ALT 13 U/L (7-52) 04/25/19 18:23 Alkaline Phosphatase 83 U/L (34-104) 04/25/19 18:23 C-Reactive Protein 50.08 mg/L (<8.01) H 04/27/19 08:52 Total Protein 7.5 g/dL (6.4-8.9) 04/25/19 18:23 Albumin 4.5 g/dL (3.2-5.2) 04/25/19 18:23 Globulin 3.0 g/dL (2-4) 04/25/19 18:23 Albumin/Globulin Ratio 1.5 (1-3) 04/25/19 18:23
[2019-04-29] MEDS ORDERED: Vancomycin Trough Check NOTE FOLLOW UP ONE (12:00)
--- NOTE | 2019-04-29 20:49 | DS ---
DISCHARGE SUMMARY: DATE OF ADMISSION: 04/25/19 DATE OF DISCHARGE: 04/29/19 PROVIDER: Mar Sorensen NP. PRIMARY CARE PROVIDER: Dr. Daxa James. ATTENDING PHYSICIAN WHILE IN THE HOSPITAL: Dr. Eugenie Sweeney * (dictated by Mar Sorensen NP). PRIMARY DIAGNOSIS: Cellulitis with cat bite. SECONDARY DIAGNOSES: 1. Chronic obstructive pulmonary disease. 2. Hypertension. 3. Coronary artery disease. 4. Hypothyroid. 5. Depression. 6. Anxiety. 7. Raynaud's. 8. History of oral cancer, status post radiation in 2013. STUDIES COMPLETED WHILE IN THE HOSPITAL: She had an x-ray of her hand: Osteopenia, osteoarthritis, soft tissue swelling, no acute osseous injury. CONSULTATIONS: She was seen in consultation by Dr. Carranza from orthopedics. His plan was to continue with IV antibiotics and upon his reexamination, the patient did not need debridement of her hands, so he recommended continuing with antibiotic therapy and to follow up in his office in 1 week after discharge. DISCHARGE MEDICATIONS: [place] Medication: Augmentin 875 one tablet twice daily for a total of 12 days to complete a 14-day course of antibiotic therapy. Continued Home Medications. 1. Sertraline 50 mg p.o. daily. 2. Metoprolol 100 mg p.o. daily. 3. Levothyroxine 50 mcg p.o. daily. 4. Irbesartan 150 mg p.o. daily. 5. Vitamin D3 one tablet p.o. daily. 6. Calcium 1200 mg p.o. daily. 7. Symbicort 2 puffs b.i.d. 8. Atorvastatin 10 mg daily. 9. Combivent Respimat 2 puffs 4 times a day. 10. Alprazolam 0.5 mg p.o. t.i.d. 11. Prednisone 5 mg p.o. daily. Discontinued Medication: Amlodipine 5 mg. She should follow up with Dr. James on whether to resume this medication or not. HISTORY OF PRESENT ILLNESS AND HOSPITAL COURSE: Ms. Cabello is a 73-year-old female who presented to the emergency room with complaints of left hand swelling and pain. The patient reported that she was bit by a cat approximately 6 days prior to her admission and reported that the swelling started 2 days prior to coming to the emergency room. She reports that she was seen at urgent care and was given IM dose of antibiotic and started on Augmentin. She does report that the swelling became progressively worse and the pain increased, so she presented to the emergency room for further evaluation. While in the hospital, the patient was given IV Zosyn. She completed 6 doses of IV Zosyn and was also started on vancomycin. The patient did have improvement in the swelling in her hand and redness also improved. The patient has been afebrile. Her white count is within normal limits. Her vital signs are stable. Due to the improvement of her symptoms and the decrease in swelling as well as redness, she is stable for discharge home. REVIEW OF SYSTEMS: The patient denies any fever or chills. Denies any chest pain or shortness of breath. Denies any nausea, vomiting, or diarrhea. Denies any abdominal pain. She denies any difficulty with urination or pain with urination. The patient does report that she does have mild pain in the left hand with mild associated redness, but does report that this is greatly improved. She is able to make a fist with ease. PHYSICAL EXAMINATION: General: Ms. Cabello is alert and oriented. She is resting on her hospital bed. She is in no acute distress. She is pleasant and calm. Vital Signs: Blood pressure 155/81, heart rate 79, respirations 20, O2 saturation 100%, temperature was 98.7. HEENT: Head is atraumatic, normocephalic. Eyes: EOMs are intact. Sclerae anicteric and not pale. Oral mucosa appears to be moist. Neck is supple. Lungs are clear to auscultation bilaterally. She does have diminished breath sounds bilaterally. Cardiac: S1 , S2. Regular rate and rhythm. No murmurs, rubs, or gallops. Abdomen is soft and nontender. Bowel sounds are present x4. Extremities: She does have mild erythema noted to the back of her left hand and mild erythema noted to the forearm. Swelling has improved. She does have mild swelling still noted to the left hand and fingers. Neurologic: She is awake, alert, and oriented x3. Speech is clear. Thought process is intact. There are no gross focal deficits. Skin: Is intact. There are no open lesions. She does have erythema and mild swelling noted to the left hand and fingers as well as mild erythema and swelling noted to the left forearm below the elbow. At this time, Ms. Cabello is stable for discharge home. DISCHARGE PLAN: Ms. Cabello will be discharged home. Activity as tolerated. 1. Cat bite/cellulitis. The patient will be placed on Augmentin 875 mg. She will take 1 tablet twice daily for the next 12 days to complete a 14-day course of antibiotic therapy. I would recommend she elevate her left hand. I did recommend no soaking her hand in water or doing dishes until the cellulitis has resolved. She should follow up with her primary care provider this week for a wound check and she should follow up with Dr. Carranza from orthopedics in 1 week. 2. Chronic obstructive pulmonary disease. The patient had no issues with her chronic obstructive pulmonary disease during this hospitalization. She should resume her home medications as previously prescribed. She should continue on her inhalers and prednisone as previously prescribed. 3. Hypertension. The patient was mildly hypotensive during this hospitalization with blood pressure of 92/52. I did stop her irbesartan and amlodipine during her hospitalization. Her blood pressure did improve. I did discontinue amlodipine and she should follow up with Dr. James in regards to resuming this. She can continue her irbesartan and metoprolol as previously prescribed. 4. Anxiety. She should continue her Zoloft as previously prescribed. 5. Hypothyroid. She should continue levothyroxine 50 mcg p.o. daily. The patient should follow up with her primary care provider in 4 to 7 days for a wound recheck. She should follow up with orthopedist, Dr. Carranza, in 1 week. The patient was instructed to return to the emergency room for any fevers, chills, chest pain or shortness of breath, worsening redness or swelling to the left hand, or any other concerning symptoms. The patient and her verbalized understanding. TIME SPENT: Time spent on this discharge was 60 minutes. Greater than half that time was spent at the bedside reviewing discharge plans and instructions. I have discussed this with my attending, Dr. Eugenie Sweeney; she is in agreement with my plan. CONDITION ON DISCHARGE: Stable. DISPOSITION ON DISCHARGE: Home. [facility], [place] [id number]/[facility] #: [id number] [facility]ITAL[facility]ang
== END 2019-04-29 11:39 | disposition home or self-care (01) | DRG 605 ==
LOC: ED 17:58 → SSU 20:29
PROVIDERS: ADMIT Internal Medicine; ATTEND Internal Medicine
DX: S61.451A Open bite of right hand, initial encounter (principal); L03.113 Cellulitis of right upper limb; Z99.81 Dependence on supplemental oxygen; W55.01XA Bitten by cat, initial encounter; Y92.9 Unspecified place or not applicable; M85.841 Other specified disorders of bone density and structure, right hand; M19.041 Primary osteoarthritis, right hand; J44.9 Chronic obstructive pulmonary disease, unspecified; I10 Essential (primary) hypertension; I25.10 Atherosclerotic heart disease of native coronary artery without angina pectoris; E03.9 Hypothyroidism, unspecified; M11.241 Other chondrocalcinosis, right hand; F32.9 Major depressive disorder, single episode, unspecified; F41.9 Anxiety disorder, unspecified; I73.00 Raynaud's syndrome without gangrene; Z85.819 Personal history of malignant neoplasm of unspecified site of lip, oral cavity, and pharynx; Z92.3 Personal history of irradiation; Z88.1 Allergy status to other antibiotic agents; Z88.5 Allergy status to narcotic agent; Z88.8 Allergy status to other drugs, medicaments and biological substances; Z79.51 Long term (current) use of inhaled steroids; Z79.52 Long term (current) use of systemic steroids; Z79.899 Other long term (current) drug therapy; Z82.5 Family history of asthma and other chronic lower respiratory diseases; Z82.49 Family history of ischemic heart disease and other diseases of the circulatory system; Z87.891 Personal history of nicotine dependence
CPT/HCPCS: 36415; 80048; 80053; 82565; 84520; 85025; 86140; 87040; 90471; 90686; 90715; 94640; 96365; 96372; 99212; 99284; A9270-GY; G0463; J0696; J2543; J3370; J7512

== ENCOUNTER 2021-07-15 11:19 | Inpatient (IN) ==
[2021-07-15] MEDS ORDERED: Albuterol/Ipratropium NEB.SOL (2.5/0.5 MG) 3 ML NEB.SOLN INH ONE (12:27)
[2021-07-15] MEDS ORDERED: Dexamethasone IV 4 MG/ML 5 ML VIAL (20 MG) IVPB ONE (12:29)
[2021-07-15] MEDS ORDERED: Lactated Ringers 1000 ml BAG 1,000 ML IV ONE (12:57)
[2021-07-15] MEDS ORDERED: Diazepam INJ CARPUJECT 5 MG/ML IV ONE (13:06)
[2021-07-15] MEDS ORDERED: Azithromycin 500 mg/250 ml NS 500 MG/250 ML BAG IVPB ONE (13:11)
[2021-07-15] MEDS ORDERED: cefTRIAXone 1 gm/50 mL NS BAG 1 GM/50 ML BAG IVPB ONE (13:11)
[2021-07-15 13:24] LABS: ABS Eosinophils 0.1 10^3/ul (0-0.6); ABS Lymphocytes 0.2 10^3/ul (1.0-4.8); ABS Monocytes 0.8 10^3/ul (0-0.8); ABS Neutrophils 11.1 10^3/ul (1.5-7.7); Eosinophil % 0.7 %; Hematocrit 36 % (35-47); Hemoglobin 12.2 g/dL (12.0-16.0); Lymphocyte % 1.5 %; Mean Corpuscular HGB Conc 34 g/dL (31-36); Mean Corpuscular Hemoglobin 33 pg (27-31); Mean Corpuscular Volume 98 fL (80-97); Mean Platelet Volume 6.4 fL (7.4-10.4); Nucleated Red Blood Cells % 0.1; Platelet Count 236 10^3/uL (150-450); Red Blood Count 3.65 10^6 /uL (3.70-4.87); Red Cell Distribution Width 12 % (10-15); White Blood Count 12.2 10^3/uL (3.5-10.8)
[2021-07-15 13:40] LABS: Albumin 3.9 g/dL (3.2-5.2); Albumin/Globulin Ratio 1.2 (1-3); Calcium 9.3 mg/dL (8.6-10.3); Globulin 3.2 g/dL (2-4); Magnesium 1.2 mg/dL (1.9-2.7); Total Bilirubin 0.4 mg/dL (0.2-1.0); Total Protein 7.1 g/dL (6.4-8.9); Troponin I 0.01 ng/mL (<0.03); eGFR CKD-EPI 99.3 (>60)
[2021-07-15] MEDS ORDERED: Magnesium Sulf 4 GM/100 ML IV 4,000 MG/100 ML BAG IVPB ONE (13:53)
[2021-07-15] MEDS ORDERED: Dexamethasone IV 4 MG/ML VIAL 1 ml VIAL IV SLOW PU ONE (14:00)
[2021-07-15 14:46] LABS: Potassium 4.5 mmol/L (3.5-5.0)
[2021-07-15] MEDS ORDERED: Albuterol 2.5mg/3 ml (0.083%) NEB.SOLN INH PRN (18:18)
[2021-07-15] MEDS ORDERED: Ondansetron 4 mg VIAL 2 MG/ML 2 ml VIAL IV PRN (18:18)
[2021-07-15] MEDS ORDERED: Enoxaparin 40 MG/0.4 ML SYR SUBCUT SCH (21:00)
[2021-07-15] MEDS: Albuterol/Ipratropium NEB.SOL (2.5/0.5 MG) 3 ML NEB.SOLN INH SCH (21:03)
[2021-07-15] MEDS: methylPREDNISolone SOD 40 mg/ml 1 ml VIAL IV SCH (22:07)
[2021-07-15 22:52] LABS: Venous Bicarbonate HCO3 34.1 mmol/L (24-28)
[2021-07-16] MEDS: methylPREDNISolone SOD 40 mg/ml 1 ml VIAL IV SCH ×2 (06:38→20:38)
[2021-07-16 06:57] LABS: ABS Lymphocytes 0.1 10^3/ul (1.0-4.8); ABS Monocytes 0.1 10^3/ul (0-0.8); Hematocrit 39 % (35-47); Lymphocyte % 1.7 %; Mean Corpuscular HGB Conc 33 g/dL (31-36); Mean Corpuscular Hemoglobin 33 pg (27-31); Mean Corpuscular Volume 99 fL (80-97); Mean Platelet Volume 6.5 fL (7.4-10.4); Nucleated Red Blood Cells % 0.1; Platelet Count 247 10^3/uL (150-450); Red Blood Count 3.94 10^6 /uL (3.70-4.87); Red Cell Distribution Width 12 % (10-15); White Blood Count 7.2 10^3/uL (3.5-10.8)
[2021-07-16 07:14] LABS: Calcium 8.9 mg/dL (8.6-10.3); Magnesium 1.9 mg/dL (1.9-2.7); Potassium 4.3 mmol/L (3.5-5.0); eGFR CKD-EPI 100.4 (>60)
[2021-07-16] MEDS: Albuterol/Ipratropium NEB.SOL (2.5/0.5 MG) 3 ML NEB.SOLN INH SCH ×3 (07:20→20:37)
[2021-07-16] MEDS: Calcium (OSCAL) 500 mg TAB PO SCH (08:32)
[2021-07-16] MEDS: Cholecalciferol (VIT D3) 1,000 unit TAB PO SCH (08:33)
[2021-07-16] MEDS ORDERED: cefTRIAXone 1 gm/50 mL NS BAG 1 GM/50 ML BAG IVPB SCH (15:00)
[2021-07-16] MEDS ORDERED: Albuterol/Ipratropium NEB.SOL (2.5/0.5 MG) 3 ML NEB.SOLN ONE (19:04)
[2021-07-16] MEDS: Enoxaparin 30 MG/0.3 ML SYR SUBCUT SCH (20:48)
[2021-07-17] MEDS: Metoprolol Tartrate 5 mg VIAL 5 ml VIAL (1 mg/ml) IV PRN ×2 (00:47→21:45)
[2021-07-17] MEDS: Albuterol/Ipratropium NEB.SOL (2.5/0.5 MG) 3 ML NEB.SOLN INH SCH ×4 (01:30→21:03)
[2021-07-17] MEDS: methylPREDNISolone SOD 40 mg/ml 1 ml VIAL IV SCH (04:52)
[2021-07-17] MEDS: Cholecalciferol (VIT D3) 1,000 unit TAB PO SCH (08:32)
[2021-07-17] MEDS: Calcium (OSCAL) 500 mg TAB PO SCH (08:32)
[2021-07-17 10:26] LABS: Hematocrit 39 % (35-47); Hemoglobin 13.3 g/dL (12.0-16.0); Mean Corpuscular HGB Conc 34 g/dL (31-36); Mean Corpuscular Hemoglobin 33 pg (27-31); Mean Corpuscular Volume 97 fL (80-97); Mean Platelet Volume 6.1 fL (7.4-10.4); Platelet Count 311 10^3/uL (150-450); Red Blood Count 4.04 10^6 /uL (3.70-4.87); Red Cell Distribution Width 12 % (10-15); White Blood Count 10.7 10^3/uL (3.5-10.8)
[2021-07-17 10:49] LABS: Calcium 9.5 mg/dL (8.6-10.3); Magnesium 1.5 mg/dL (1.9-2.7); Potassium 3.5 mmol/L (3.5-5.0); eGFR CKD-EPI 98.4 (>60)
[2021-07-17] MEDS ORDERED: Potassium Chlor 20 meq TAB.ER PO ONE ×2 (16:46→17:38)
[2021-07-17] MEDS ORDERED: Magnesium Sulfate IV 3 GM in NS 0.9% 100 ml BAG 100 ML IVPB ONE (16:47)
[2021-07-17] MEDS: Enoxaparin 30 MG/0.3 ML SYR SUBCUT SCH (21:59)
[2021-07-17] MEDS ORDERED: Magnesium Hydroxide LIQ 30 ML UDC PO PRN (23:59)
[2021-07-18] MEDS: Albuterol/Ipratropium NEB.SOL (2.5/0.5 MG) 3 ML NEB.SOLN INH SCH ×4 (02:17→19:51)
[2021-07-18 07:34] LABS: Calcium 9.7 mg/dL (8.6-10.3); Magnesium 2.2 mg/dL (1.9-2.7); Potassium 3.3 mmol/L (3.5-5.0); eGFR CKD-EPI 93.4 (>60)
[2021-07-18] MEDS: Polyethylene Glycol 3350 17 GM PACKET PO PRN (08:15)
[2021-07-18] MEDS: Calcium (OSCAL) 500 mg TAB PO SCH (08:15)
[2021-07-18] MEDS: Cholecalciferol (VIT D3) 1,000 unit TAB PO SCH (08:16)
[2021-07-18] MEDS ORDERED: Potassium Chlor 20 meq TAB.ER PO ONE ×2 (08:54→16:00)
[2021-07-18] MEDS: Enoxaparin 30 MG/0.3 ML SYR SUBCUT SCH (20:51)
[2021-07-18] MEDS: Metoprolol Tartrate 5 mg VIAL 5 ml VIAL (1 mg/ml) IV PRN (23:19)
[2021-07-19] MEDS: Albuterol/Ipratropium NEB.SOL (2.5/0.5 MG) 3 ML NEB.SOLN INH SCH ×3 (01:27→13:21)
[2021-07-19] MEDS: Metoprolol Tartrate 5 mg VIAL 5 ml VIAL (1 mg/ml) IV PRN (03:53)
[2021-07-19] MEDS ORDERED: Enalaprilat IV 1.25 mg/ml 1 ml VIAL (1.25 MG) IV ONE (04:51)
[2021-07-19] MEDS ORDERED: Enalaprilat IV 1.25 mg/ml 1 ml VIAL (1.25 MG) ONE (04:54)
[2021-07-19] MEDS: Cholecalciferol (VIT D3) 1,000 unit TAB PO SCH (07:23)
[2021-07-19] MEDS: Polyethylene Glycol 3350 17 GM PACKET PO PRN (07:34)
[2021-07-19 08:12] LABS: Calcium 10.2 mg/dL (8.6-10.3); Potassium 4.1 mmol/L (3.5-5.0); eGFR CKD-EPI 80.9 (>60)
[2021-07-19 08:35] LABS: Magnesium 1.8 mg/dL (1.9-2.7)
[2021-07-19 14:07] VITALS: BP 158/91
== END 2021-07-19 14:40 | disposition home or self-care (01) | DRG 189 ==
LOC: ED 11:19 → SUATTDRO 18:18 → EDHOLD 18:18 → ICU 20:04 → MEDTELE 07-16 19:19
PROVIDERS: ADMIT Student in an Organized Health Care Education/Training Program; ATTEND Hospitalist

== ENCOUNTER 2021-09-17 06:53 | Inpatient (IN) ==
[2021-09-17] MEDS ORDERED: NS 0.9% 1000 ml BAG 1,000 ML IV ONE ×3 (07:00→11:57)
[2021-09-17] MEDS ORDERED: Iodixanol (CONTRAST) 320 MG/ML 100 ML SDV IV ONE (07:17)
[2021-09-17 07:39] LABS: ABS Eosinophils 0.1 10^3/ul (0-0.6); ABS Lymphocytes 0.4 10^3/ul (1.0-4.8); ABS Neutrophils 9.3 10^3/ul (1.5-7.7); Eosinophil % 0.8 %; Hematocrit 35 % (35-47); Hemoglobin 11.8 g/dL (12.0-16.0); Lymphocyte % 3.7 %; Mean Corpuscular HGB Conc 33 g/dL (31-36); Mean Corpuscular Hemoglobin 33 pg (27-31); Mean Corpuscular Volume 98 fL (80-97); Mean Platelet Volume 6.9 fL (7.4-10.4); Platelet Count 184 10^3/uL (150-450); Red Cell Distribution Width 13 % (10-15); White Blood Count 10.8 10^3/uL (3.5-10.8)
[2021-09-17 07:51] LABS: Activated Partial Thrombo Time 30.5 seconds (26.0-38.0); INR 1.17 (0.86-1.15)
[2021-09-17 08:03] LABS: ALT 13 U/L (7-52); Albumin 3.7 g/dL (3.2-5.2); Albumin/Globulin Ratio 1.3 (1-3); Alkaline Phosphatase 72 U/L (35-149); Blood Urea Nitrogen 14 mg/dL (6-24); CO2 Carbon Dioxide 36 mmol/L (22-32); Calcium 9.3 mg/dL (8.6-10.3); Chloride 86 mmol/L (101-111); Cholesterol 155 mg/dL; Globulin 2.8 g/dL (2-4); Glucose 176 mg/dL (70-100); HDL Cholesterol 74.7 mg/dL; LDL Cholesterol 68 mg/dL; Sodium 131 mmol/L (135-145); Total Protein 6.5 g/dL (6.4-8.9); Triglycerides 61 mg/dL; eGFR CKD-EPI 102.6 (>60)
[2021-09-17 08:28] LABS: Anion Gap 9 mmol/L (2-11)
[2021-09-17 08:53] LABS: Urine Appearance Clear; Urine Bilirubin Negative (Negative); Urine Blood Negative (Negative); Urine Color Yellow; Urine Glucose 1+(50 mg/dL) (Negative); Urine Ketones Negative (Negative); Urine Nitrite Negative (Negative); Urine Protein Negative (Negative); Urine Specific Gravity 1.018 (1.002-1.030); Urine Urobilinogen Negative (Negative)
[2021-09-17 09:33] LABS: Potassium Redraw 3.3 mmol/L (3.5-5.0)
[2021-09-17] MEDS ORDERED: Potassium Chloride LIQUID 20 MEQ/15 ML LIQUID PO ONE (09:41)
[2021-09-17] MEDS ORDERED: Enoxaparin 40 MG/0.4 ML SYR SUBCUT SCH (10:00)
[2021-09-17] MEDS ORDERED: LORazepam 2 mg VIAL 1 ml ONE ×2 (10:46→11:01)
[2021-09-17] MEDS ORDERED: Potassium Chlor 20 meq TAB.ER PO ONE (10:52)
[2021-09-17] MEDS ORDERED: levETIRAcetam IV 1,500 MG in NS 0.9% 100 ml BAG 100 ML IVPB ONE (10:54)
[2021-09-17] MEDS ORDERED: NS 0.9% 100 ml BAG 100 ML ONE (10:57)
[2021-09-17] MEDS ORDERED: Lorazepam PYXIS KEY PRN ×3 (11:12→11:14)
[2021-09-17] MEDS ORDERED: LORazepam 2 mg VIAL 1 ml IV PUSH ONE ×3 (11:12→11:14)
[2021-09-17 11:20] LABS: Magnesium 0.9 mg/dL (1.9-2.7)
[2021-09-17] MEDS ORDERED: Magnesium Sulfate IV 3 GM in NS 0.9% 100 ml BAG 100 ML IVPB ONE (11:24)
[2021-09-17] MEDS ORDERED: KCL 20 MEQ/100 ML IVPREMIX 20 MEQ/100 ML BAG IV ONE (11:36)
[2021-09-17] MEDS ORDERED: Magnesium Sulfate 2 GM IV (Premix) IVPB ONE (12:00)
[2021-09-17] MEDS: SPIRIVA Respimat (tiotropium) 2.5 mcg/inh Inhaler INH SCH (12:14)
[2021-09-17] MEDS: Mometasone/Formoter 200/5 MDI INH SCH ×2 (12:14→20:14)
[2021-09-17] MEDS ORDERED: Magnesium Sulf 4 GM/100 ML IV 4,000 MG/100 ML BAG IVPB ONE (12:55)
[2021-09-17] MEDS ORDERED: Albuterol/Ipratropium RESP(NF) MDI (Combivent Respimat) INH SCH (13:00)
[2021-09-17] MEDS ORDERED: Magnesium Sulfate 1 GM IV 1 GM/100 ML BAG IV ONE (13:00)
[2021-09-17] MEDS: Enoxaparin 30 MG/0.3 ML SYR SUBCUT SCH (13:28)
[2021-09-17 16:52] LABS: PCO2 Arterial 54 mmHg (35-45); PO2 Arterial 122 mmHg (80-100)
[2021-09-17 16:54] LABS: Troponin I 0.01 ng/mL (<0.03)
[2021-09-17 16:56] LABS: Potassium 3.8 mmol/L (3.5-5.0)
[2021-09-17 17:01] LABS: eGFR CKD-EPI 103.2 (>60)
[2021-09-17] MEDS ORDERED: NS 0.9% 250 ml 250 ML IV ONE (17:02)
[2021-09-17] MEDS ORDERED: NS 0.9% 500 ml BAG 500 ML IV ONE (17:02)
[2021-09-17 17:27] LABS: Magnesium 2.5 mg/dL (1.9-2.7)
[2021-09-17] MEDS: Hydrocortisone INJ 100 MG/2ML 2 ML VIAL IV SCH (17:27)
[2021-09-17] MEDS ORDERED: levETIRAcetam 1000MG IVPREMIX 1,000 MG/100 ML BAG IVPB ONE (21:00)
[2021-09-17 22:58] LABS: Phosphorus 2.6 mg/dL (2.5-5.0)
[2021-09-18] MEDS: Hydrocortisone INJ 100 MG/2ML 2 ML VIAL IV SCH (01:25)
[2021-09-18 05:58] LABS: ABS Lymphocytes 0.2 10^3/ul (1.0-4.8); ABS Monocytes 0.2 10^3/ul (0-0.8); ABS Neutrophils 8.2 10^3/ul (1.5-7.7); Hematocrit 36 % (35-47); Mean Corpuscular HGB Conc 33 g/dL (31-36); Mean Corpuscular Hemoglobin 33 pg (27-31); Mean Corpuscular Volume 98 fL (80-97); Platelet Count 240 10^3/uL (150-450); Red Blood Count 3.66 10^6 /uL (3.70-4.87); Red Cell Distribution Width 13 % (10-15); White Blood Count 8.6 10^3/uL (3.5-10.8)
[2021-09-18 06:21] LABS: Calcium 8.5 mg/dL (8.6-10.3); Potassium 3.6 mmol/L (3.5-5.0); eGFR CKD-EPI 99.8 (>60)
[2021-09-18] MEDS: Mometasone/Formoter 200/5 MDI INH SCH ×2 (08:31→19:29)
[2021-09-18] MEDS: SPIRIVA Respimat (tiotropium) 2.5 mcg/inh Inhaler INH SCH (08:32)
[2021-09-18] MEDS ORDERED: Flu vaccine *QUAD* 2021-22* 0.5 ML SYRINGE IM ONE (09:00)
[2021-09-18] MEDS: Enoxaparin 30 MG/0.3 ML SYR SUBCUT SCH (10:16)
[2021-09-18] MEDS ORDERED: Glycerin ADULT 2.4 gm SUPP PR ONE (12:31)
[2021-09-18] MEDS: Thiamine 100 MG/ML 2 ml VIAL 500 MG in NS 0.9% 250 ml 250 ML IV SCH ×2 (15:43→22:32)
[2021-09-18] MEDS ORDERED: levETIRAcetam 1000MG IVPREMIX 1,000 MG/100 ML BAG IVPB ONE (21:10)
[2021-09-19 06:32] LABS: Urine Benzodiazepine Screen None Detected (None Detect); Urine Cannabinoids Screen None Detected (None Detect); Urine Opiates Screen None Detected (None Detect)
[2021-09-19] MEDS: SPIRIVA Respimat (tiotropium) 2.5 mcg/inh Inhaler INH SCH (07:44)
[2021-09-19] MEDS: Mometasone/Formoter 200/5 MDI INH SCH (07:46)
[2021-09-19 09:58] LABS: ABS Eosinophils 0.1 10^3/ul (0-0.6); ABS Lymphocytes 0.4 10^3/ul (1.0-4.8); ABS Monocytes 0.6 10^3/ul (0-0.8); ABS Neutrophils 4.9 10^3/ul (1.5-7.7); Eosinophil % 1.6 %; Hematocrit 35 % (35-47); Hemoglobin 11.6 g/dL (12.0-16.0); Mean Corpuscular HGB Conc 33 g/dL (31-36); Mean Corpuscular Hemoglobin 32 pg (27-31); Mean Corpuscular Volume 99 fL (80-97); Mean Platelet Volume 6.5 fL (7.4-10.4); Platelet Count 222 10^3/uL (150-450); Red Blood Count 3.57 10^6 /uL (3.70-4.87); Red Cell Distribution Width 14 % (10-15); White Blood Count 6.1 10^3/uL (3.5-10.8)
[2021-09-19] MEDS: Enoxaparin 30 MG/0.3 ML SYR SUBCUT SCH (10:16)
[2021-09-19] MEDS: Thiamine 100 MG/ML 2 ml VIAL 500 MG in NS 0.9% 250 ml 250 ML IV SCH ×2 (10:16→13:38)
[2021-09-19 10:18] LABS: Calcium 9.1 mg/dL (8.6-10.3); Magnesium 1.1 mg/dL (1.9-2.7); Potassium 3.2 mmol/L (3.5-5.0); eGFR CKD-EPI 100.9 (>60)
[2021-09-19] MEDS ORDERED: Potassium Chlor 20 meq TAB.ER PO ONE (13:39)
[2021-09-19 14:54] VITALS: BP 145/65
[2021-09-19] MEDS ORDERED: Albuterol HFA INHALER 8 gm MDI INH PRN (15:01)
[2021-09-20] MEDS ORDERED: Flu vaccine *QUAD* 2021-22* 0.5 ML SYRINGE IM ONE (09:00)
== END 2021-09-19 16:20 | disposition home or self-care (01) | DRG 101 ==
LOC: ED 06:53 → EDHOLD 10:18 → ICU 15:04 → MEDTELE 09-19 08:48
PROVIDERS: ADMIT Physician Assistant; ATTEND Internal Medicine